=== PATIENT | female | born 1940 | race Caucasian/White ===

== ENCOUNTER 2017-05-25 11:23 | Emergency (ER) | payer MEDICARE, OTHER, MEDICAID ==
[~2017-05-25] VITALS: Ht 165.1 cm; Wt 65.4 kg
--- OUTSIDE RECORDS SUMMARY | ~2017-05-25 | XMS | Clinical Summary ---
Demographics + + + | Address | [address] | | | [place] [address] | + + + | Home Phone | | + + + | Preferred Language | Unknown | + + + | Marital Status | Single | + + + | Zoroastrian Affiliation | OTH | + + + [...] Team Providers + +------+ + | Care Microfilm Machine Operator Name | Role | Phone | + +------+ + | David Arias MD | PP | | + +------+ + Source Comments BRADLEY is fully live on both [facility] Amb[facility] and [facility] InPatient.[facility]ly [facility] Allergies + + + + + + [...] | + + + + + + Current Medications + + + +---------+------+------+-------+ | Prescription | Sig. | Disp. | Refills | Star | End | Statu | | | | | | t | Date | s | | | | | | Date | | | + + + +---------+------+------+-------+ | DICLOFENAC | Take by mouth. | | | | | Activ | | SODIUM/MISOPROSTOL | | | | | | e | | (ARTHROTEC 50 ORAL) | | | | | | | + + + +---------+------+------+-------+ | | Inhale 2 Puffs four | | | | | Activ | | albuterol-ipratropiu | times daily as | | | | | e | | m (COMBIVENT) 18-103 | needed. | | | | | | | mcg/actuation | | | | | | | | Inhalation Aerosol, | | | | | | | | [place] | | | | | | | + + + +---------+------+------+-------+ | tiotropium | Inhale 18 mcg once | | | | | Activ | | (SPIRIVA WITH | daily. | | | | | e | | HANDIHALER) 18 mcg | | | | | | | | Inhalation Capsule, | | | | | | | | w/Inhalation Device | | | | | | | + + + +---------+------+------+-------+ | fluticasone | Instill 2 Sprays | | | | | Activ | | (FLONASE) 50 | into each nostril | | | | | e | | mcg/actuation Nasal | once daily. | | | | | | | [place], Suspension | | | | | | | + + + +---------+------+------+-------+ | FOLIC | Take by mouth. | | | | | Activ | | ACID/MV,FE,OTHER MIN | | | | | | e | | (CENTRUM ORAL) | | | | | | | + + + +---------+------+------+-------+ | methylPREDNISolone | Follow package | 1 | 0 | 06/2 | | Activ | | (MEDROL, UZIEL,) 4 mg | directions. Please | Package | | /20 | | e | | Oral Tablets, [...] | mouth every four | | | 20 | | e | | ophen (VICODIN) [...] + +---------+ + | Alcohol Use | Drinks/We | oz/Week | Comments | | | ek | | | + + +---------+ + | No | | | stopped driking 36 years ago | + + +---------+ + + + + | Sex Assigned at | Date Recorded | | | | + + + | Not on file | | + + + Last Filed Vital Signs + + + + | Vital Sign | Reading | Time Taken | + + + + | Blood Pressure | 137/86 | 10/14/2011 2:50 PM PDT | + + + + | Pulse | 87 | 10/14/2011 2:50 PM PDT | + + + + | Temperature | 36.7 C (98.1 F) | 10/14/2011 2:24 PM PDT | + + + + | Respiratory Rate | 16 | 10/14/2011 2:50 PM PDT | + + + + | Oxygen Saturation | 95% | 10/14/2011 2:50 PM PDT | + + + + | Inhaled Oxygen | - | - | | Concentration | | | + + + + | Weight | 64.9 kg (143 lb) | 10/14/2011 9:40 AM PDT | + + + + | Height | 166.4 cm (5' 5.5") | 10/14/2011 9:40 AM PDT | + + + + | Body Mass Index | 23.43 | 10/14/2011 9:40 AM PDT | + + + + Plan of Treatment + + + + + | Health Maintenance | Due Date | Last Done | Comments | + + + + + | INFLUENZA VACCINE | | | | | (FLU SHOT) | 7 | | | + + + + + Results Not on filefrom Last 3 Months
--- OUTSIDE RECORDS SUMMARY | ~2017-05-25 | XMS | Clinical Summary ---
Demographics + + + | Address | [address] | | | [place] [address] | + + + | Home Phone | | + + + | Preferred Language | Unknown | + + + | Marital Status | Single | + + + | Jewish Affiliation | OTH | + + + [...] Team Providers + +------+ + | Care Driftman Name | Role | Phone | + +------+ + | David Arias MD | PP | | + +------+ + Source Comments BRADLEY is fully live on both [facility] Amb[facility] and [facility] InPatient.[facility] Allergies + + + + + [...] | | | | | | | Evant | | | | | | | [...] | | | | | | | Evant, Suspension | | | | | | [...]
[~2017-05-25 11:23] MED LIST: ALBUTEROL2.5 MG/3 M INH; AMITRIPTYLINE H25 MG PO; ASPIRIN EC325 MG PO; ASPIRIN EC81 MG PO; AZITHROMYCIN500 MG PO; AZO1 EACH MISC; BOTOX100 UNITS IM; CIPRO500 MG PO; CLARITHROMYCIN500 MG PO; CLOPIDOGREL75 MG PO; COMBIVENT INH14.7 GM INH; CYCLOBENZAPRINE5 MG PO; CYTOTEC200 MCG PO; DEXAMETHASONE2 MG PO; DEXAMETHASONE4 MG PO; DICLOFENAC SODI75 MG PO; DOXYCYCLINE MO100 M1 PO; FLOVENT DISKUS50 MCG NS; FLUTICASONE PRO16 GM NAS; FLUTICASONE PRO16 GM NS; HYDROMORPHONE HC4 MG PO; IMITREX100 MG PO; IPRAT-ALBUT 0.5-3 ML INH; ISOSORBIDE MONO30 MG PO; LANSOPRAZOLE30 MG PO; LEVAQUIN750 MG PO; LIPITOR40 MG PO; LIPITOR80 MG PO; LOPERAMIDE2 MG PO; MACROBID 100 M100 MG PO; METOCLOPRAMIDE10 MG PO; METRONIDAZOLE250 MG PO; MILK OF MA400 MG/5 M PO; MIRALAX17 GM PO; NAPROSYN375 MG; NAPROSYN500 MG PO; NAPROXEN500 MG PO; NITROGLYCERIN0.4 MG SL; NITROSTAT0.4 MG SL; NORCO 5-325 TA1 EACH PO; OXYCODONE HCL5 MG PO; PERCOCET 5-3251 EACH PO; PREDNISONE20 MG PO; SPIRIVA18 MCG INH; SUMATRIPTAN SU100 MG PO; TOPIRAMATE100 MG PO; TOPROL XL25 MG PO; VITAMIN D5000 UNIT PO; XARELTO10 MG PO; ZOFRAN ODT4 MG PO; ZOFRAN ODT4 MG SL; [UNRECOGNIZED DRUG - REMARK]; [UNRECOGNIZED DRUG - REMARK]
[2017-05-25] MEDS ORDERED: NORCO 5-325 TA1 EACH PO (13:53)
== END 2017-05-25 14:03 | disposition home or self-care (01) ==
LOC: ED 11:23
DX: S39.012A Strain of muscle, fascia and tendon of lower back, initial encounter (principal); J44.9 Chronic obstructive pulmonary disease, unspecified; I25.2 Old myocardial infarction; Z87.891 Personal history of nicotine dependence; Z88.0 Allergy status to penicillin; Z88.7 Allergy status to serum and vaccine; Z88.2 Allergy status to sulfonamides; Z88.5 Allergy status to narcotic agent; Z88.1 Allergy status to other antibiotic agents; Z79.82 Long term (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; Z79.899 Other long term (current) drug therapy; X50.9XXA Other and unspecified overexertion or strenuous movements or postures, initial encounter
CPT/HCPCS: 72100; 99283

== ENCOUNTER 2017-06-18 18:09 | Emergency (ER) | payer MEDICARE, OTHER, MEDICAID ==
[~2017-06-18] VITALS: Ht 165.1 cm; Wt 65.4 kg
--- NOTE | 2017-06-18 18:34 | EKG ---
[facility] [address] [facility] [place] [address] Signed Sinus tachycardia Inferior infarct , age undetermined Abnormal ECG When compared with ECG of 15-JUL-2016 00:41, Nonspecific T wave abnormality no longer evident in Anterior leads Confirmed by EZ SCHMITZ MD ([id number]) on 06/18/2017 6:33:53 PM Electronically Signed By: EZ SCHMITZ MD 06/18/17 1834 PATIENT NAME: MIRTHANATALYCOBY MADRIGAL Electrocardiogram DATE OF : 44 PHYSICIAN: EZ SCHMITZ MD REPORT #: [id number] REPORT IS CONFIDENTIAL AND NOT TO BE RELEASED WITHOUT AUTHORIZATION
[2017-06-18] MEDS ORDERED: SUMATRIPTAN SU100 MG PO (18:44)
== END 2017-06-18 21:01 | disposition home or self-care (01) ==
LOC: ED 18:09
DX: R07.89 Other chest pain (principal); J44.9 Chronic obstructive pulmonary disease, unspecified; Z88.0 Allergy status to penicillin; Z88.2 Allergy status to sulfonamides; Z88.8 Allergy status to other drugs, medicaments and biological substances; Z88.5 Allergy status to narcotic agent; Z79.899 Other long term (current) drug therapy; Z79.82 Long term (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
CPT/HCPCS: 71260; 80053; 84484; 85025; 85379; 85610; 93005; 93010; 99284; J2405; J7040; Q9967

== ENCOUNTER 2017-07-15 19:52 | Emergency (ER) | payer MEDICARE, OTHER, MEDICAID ==
[~2017-07-15] VITALS: Ht 165.1 cm; Wt 68.1 kg
[2017-07-15] MEDS ORDERED: CIPRO500 MG PO (20:11)
[2017-07-15] MEDS ORDERED: PREDNISONE20 MG PO (20:11)
[2017-07-15] MEDS ORDERED: GUAIFENESIN AC473 ML PO (21:25)
== END 2017-07-15 21:37 | disposition home or self-care (01) ==
LOC: ED 19:52
DX: J20.9 Acute bronchitis, unspecified (principal); F32.9 Major depressive disorder, single episode, unspecified; I25.2 Old myocardial infarction; J44.9 Chronic obstructive pulmonary disease, unspecified; Z87.891 Personal history of nicotine dependence; Z88.0 Allergy status to penicillin; Z88.7 Allergy status to serum and vaccine; Z88.2 Allergy status to sulfonamides; Z88.5 Allergy status to narcotic agent; Z88.1 Allergy status to other antibiotic agents; Z79.899 Other long term (current) drug therapy
CPT/HCPCS: 71046; 99283

== ENCOUNTER 2018-05-04 12:51 | Observation (INO) | payer MEDICARE, OTHER, MEDICAID ==
[~2018-05-04] VITALS: Ht 165.1 cm; Wt 68.1 kg
[~2018-05-04 12:51] MED LIST changes: +GUAIFENESIN AC473 ML PO
[2018-05-04] MEDS ORDERED: DICLOFENAC-MIS1 EAC2 PO (13:13)
[2018-05-04] MEDS ORDERED: PERFOROMIS20 MCG/2 M INH (13:13)
--- NOTE | 2018-05-04 15:53 | EKG ---
[facility] [address] [facility] [place] [address] Signed Sinus rhythm with occasional premature ventricular complexes Possible Left atrial enlargement Inferior infarct (cited on or before 15-JUL-2016) Abnormal ECG When compared with ECG of 18-JUN-2017 18:13, premature ventricular complexes are now present Questionable change in initial forces of Inferior leads ST no longer depressed in Lateral leads Confirmed by ABDOUL PENDLETON MD ([id number]) on 05/04/2018 3:53:05 PM Electronically Signed By: ABDOUL PENDLETON MD 05/04/18 1553 PATIENT NAME: NATALY SHANNON Electrocardiogram DATE OF : 44 PHYSICIAN: ABDOUL PENDLETON MD REPORT #: [id number] REPORT IS CONFIDENTIAL AND NOT TO BE RELEASED WITHOUT AUTHORIZATION
--- NOTE | 2018-05-04 19:59 | NUR ---
pt ARRIVED VIA STRETCHER. ASSESSMENT DONE. ASSISTED TO BSC. 1PA. TOLERATING REGULAR DIET. WEAKNESS IN LEGS. VSS. SETTLED INTO ROOM. CALL LIGHT WITHIN REACH. NO REQUESTS AT THIS TIME.
--- NOTE | 2018-05-04 21:30 | NUR ---
juancarlos pt for the flonase treatment. Pt offered no needs.
--- NOTE | 2018-05-04 22:24 | NUR ---
PATIENT CALLED TO USE THE BEDSIDE COMMODE. 1 PA/SBA.
--- NOTE | 2018-05-05 00:11 | NUR ---
ROUNDED ON pt. IVF INFUSING. RESTING WITH EYES CLOSED, RESPIRATIONS REGULAR, RATE = 18. CALL LIGHT WITHIN REACH.
--- NOTE | 2018-05-05 02:52 | NUR ---
ASSESSMENT DONE. NO CHANGES FROM PRIOR ASSESSMENT. pt RESTING WITH EYES CLOSED. IVF INFUSING. CALL LIGHT WITHIN REACH. NO REQUESTS AT THIS TIME.
--- NOTE | 2018-05-05 04:28 | NUR ---
CALL LIGHT ON. pt REQUESTED TO USE COMMODE. PROJECT PRODUCTION ENGINEER TO ROOM.
--- NOTE | 2018-05-05 05:01 | NUR ---
CALL LIGHT ON. pt REQUESTED PAIN MEDICATION FOR A 4/10 HEADACHE. PRN MEDICATION ADMINISTERED, REPORTED NAUSEA, PRN MEDICATION GIVEN (SEE MAR). PROVIDED CRACKERS. UP TO BSC, SBA. RESTING IN BED. CALL LIGHT WITHIN REACH. IVF INFUSING.
--- NOTE | 2018-05-05 05:14 | NUR ---
pt HERE FOLLOWING COPD EXACERBATION. RESTED MOST OF SHIFT. PRN PAIN AND NAUSEA MEDICATION FOR HEADACHE. SBA, BSC. IVF. REGULAR DIET. 2L O2 VIA NC CHRONIC. BLE EDEMA. DIM LUNG SOUNDS. USES CALL LIGHT APPROPRIATELY.
--- NOTE | 2018-05-05 06:38 | NUR ---
CALL LIGHT ON pt REPORTING NO CHANGE IN HEADACHE. WARM PACK PROVIDED. ASSISTED TO TOILET AND BACK TO BED. CALL LIGHT WITHIN REACH. NO FURTHER REQUESTS AT THIS TIME.
--- NOTE | 2018-05-05 07:21 | NUR ---
REPORT RECEIVED FROM KOBE POTTS. PT APPEARS TO BE SLEEPING. REPORTED HEADACHE TO COMMERCIAL COLLECTIONS DRIVER PRIOR.
--- NOTE | 2018-05-05 07:29 | NUR ---
CALLED DR PENDLETON REGARDING PT HEADACHE ALL NIGHT. PT STATES SHE TAKES 3 500MG TABS AT HOME. ORDERED A ONE TIME DOSE OF 1000 MG.
--- NOTE | 2018-05-05 07:59 | NUR ---
PT GIVEN SCHED MEDS AND IBUPRO. FOR HEADACHE. PT VOMITED CLEAR FOAM X1. STATES HEADACHE MAKES HER NAUSEOUS. CRACKLES HEARD IN LLL.
--- NOTE | 2018-05-05 09:52 | NUR ---
WENT TO OFFER NEW IMITREX MED, BUT PT APPEARS TO BE SLEEPING.
[2018-05-05] MEDS ORDERED: OMEPRAZOLE20 MG PO (10:33)
[2018-05-05] MEDS ORDERED: IPRAT-ALBUT 0.5-3 ML INH (10:35)
--- NOTE | 2018-05-05 10:59 | NUR ---
MED REC COMPLETE WITH SAFEWAY REFILL HISTORY
--- NOTE | 2018-05-05 11:33 | NUR ---
ADMINISTERED TYLENOL FOR CONTINUING HEADACHE. GIVEN DIET COKE FOR THE CAFFINE SHE STATES SHE NORMALLY DRINKS CAFFIENE DAILY. PT THEN STATED" IF THAT DOESNT WORK DO YOU THINK SHE WOULD GIVE ME DEMEROL AND FLEXERIL TO KNOCK ME OUT?" I STATED THAT WE WOULD GIVE OTHER OPTIONS A TRY.
--- NOTE | 2018-05-05 13:14 | NUR ---
PT DRESSED, SITTING ON SIDE OF BED-WAITING FOR DC. PT STATED SHE FEELS MUCH BETTER, AND IS USING O2 NC. PT REQUESTED PRAYER, WILL FOLLOW NEEDED
--- NOTE | 2018-05-05 13:26 | NUR ---
EDUCATION GIVEN REGARDING MIGRAINE AND COPD. VS STABLE. IV REMOVED WNL. ASSISTED TO DRESS. SENT ON HER OWN HOME OX. QUESTIONS ANSWERED.
== END 2018-05-05 13:23 | disposition home or self-care (01) ==
LOC: ED 12:51 → MS 12:52
PROVIDERS: ADMIT Internal Medicine
DX: R06.02 Shortness of breath (principal); R07.89 Other chest pain; I25.10 Atherosclerotic heart disease of native coronary artery without angina pectoris; R52 Pain, unspecified; R62.7 Adult failure to thrive; G47.30 Sleep apnea, unspecified; J44.9 Chronic obstructive pulmonary disease, unspecified; F32.9 Major depressive disorder, single episode, unspecified; G43.909 Migraine, unspecified, not intractable, without status migrainosus; Z66 Do not resuscitate; Z85.72 Personal history of non-Hodgkin lymphomas; Z86.19 Personal history of other infectious and parasitic diseases; Z99.81 Dependence on supplemental oxygen; Z87.891 Personal history of nicotine dependence; Z79.1 Long term (current) use of non-steroidal anti-inflammatories (NSAID); Z79.82 Long term (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; Z79.51 Long term (current) use of inhaled steroids; Z79.899 Other long term (current) drug therapy; Z88.5 Allergy status to narcotic agent; Z88.1 Allergy status to other antibiotic agents; Z88.0 Allergy status to penicillin; Z88.2 Allergy status to sulfonamides; Z88.7 Allergy status to serum and vaccine
CPT/HCPCS: 36415; 51701; 71045; 71260; 80053; 81001; 82550; 84439; 84443; 84484; 85025; 85379; 85651; 93005; 93010; 96374; 96375; 96376; 99285-25; C9113; G0378; J2405; Q9967

== ENCOUNTER 2018-08-13 12:31 | Emergency (ER) | payer MEDICARE, OTHER, MEDICAID ==
[~2018-08-13] VITALS: Ht 165.1 cm; Wt 72.6 kg
[~2018-08-13 12:31] MED LIST changes: +DICLOFENAC-MIS1 EAC2 PO; +HYDROCODON-ACE1 EA10 PO; +OMEPRAZOLE20 MG PO; +PERFOROMIS20 MCG/2 M INH
--- OUTSIDE RECORDS SUMMARY | 2018-08-13 12:34 | XMS ---
PreManage Notification: NATALY SHANNON Security Health Care Administrator Events No recent Security Events currently on file CRITERIA MET - CARLY CARE PROVIDERS Louis Delaney Treatment Current [place] PHONE: Unknown DR KRYSTYNA LUCIANO Primary Care Current PHONE: [phone] [facility] Current Orthopedic Surgery \T\ Fracture Clinic PHONE: Unknown Yolande has no Care Guidelines for this patient. E.[place]. VISIT COUNT (12 MO.) [address] [facility] TOTAL 2 NOTE: Visits indicate total known visits. ED/UCC VISIT TRACKING (12 MO.) 08/13/2018 12:31 [facility]: Emergency COMPLAINT: - CHEST PAIN, WEAKNESS, SOB 05/04/2018 12:51 [facility] TYPE: Emergency COMPLAINT: - CHEST PRESSURE INPATIENT VISIT TRACKING (12 MO.) 05/04/2018 12:52 [facility] TYPE: Observation COMPLAINT: - COPD DIAGNOSES: - Migraine, unspecified, not intractable, without status migrainosus - Allergy status to penicillin - Sleep apnea, unspecified - Allergy status to sulfonamides status - Allergy status to other antibiotic agents status - Adult failure to thrive - Do not resuscitate - terminal operations manager (current) use of non-steroidal anti-inflammatories (NSAID) - terminal operations manager (current) use of inhaled steroids - Shortness of breath - Personal history of other infectious and parasitic diseases - terminal operations manager (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 - Other detention (current) drug therapy - Personal history of nicotine dependence - Dependence on supplemental oxygen - Cough - Personal history of non-Hodgkin lymphomas - Allergy status to narcotic agent status - Major depressive disorder, single episode, unspecified - Atherosclerotic heart disease of [place] coronary artery without angina pectoris - Pain, unspecified - Allergy status to serum and vaccine status - Chronic obstructive pulmonary disease, unspecified - Other chest pain 01/27/2018 08:05 [facility] OR TYPE: Medical Surgical COMPLAINT: - RIGHT TOTAL KNEE ARTHOPLASTY [id number]
[2018-08-13] MEDS ORDERED: PERFOROMIS20 MCG/2 M INH (12:53)
[2018-08-13] MEDS ORDERED: SUMATRIPTAN SU100 MG PO (12:56)
[2018-08-13] MEDS ORDERED: PULMICORT0.5 MG/2 M INH (12:56)
--- NOTE | 2018-08-14 00:53 | EKG ---
[facility] [address] [place] [address] Signed Sinus tachycardia with frequent premature ventricular complexes Possible Left atrial enlargement Septal infarct (cited on or before 15-JUL-2016) Inferior infarct , age undetermined Abnormal ECG When compared with ECG of 01-JUL-2018 14:52, Significant changes have occurred with new inferior infarct. Confirmed by EZ SCHMITZ MD ([id number]) on 08/14/2018 12:53:11 AM Electronically Signed By: EZ SCHMITZ MD 08/14/18 0053 PATIENT NAME: NATALY SHANNON Electrocardiogram DATE OF : 44 PHYSICIAN: EZ SCHMITZ MD REPORT #: [id number] REPORT IS CONFIDENTIAL AND NOT TO BE RELEASED WITHOUT AUTHORIZATION
== END 2018-08-13 16:23 | disposition home or self-care (01) ==
LOC: ED 12:31
DX: R07.9 Chest pain, unspecified (principal); R53.1 Weakness; J44.9 Chronic obstructive pulmonary disease, unspecified; I25.2 Old myocardial infarction; Z87.891 Personal history of nicotine dependence; Z90.49 Acquired absence of other specified parts of digestive tract; Z90.89 Acquired absence of other organs; Z88.0 Allergy status to penicillin; Z88.2 Allergy status to sulfonamides; Z88.5 Allergy status to narcotic agent; Z88.7 Allergy status to serum and vaccine; Z88.8 Allergy status to other drugs, medicaments and biological substances; Z79.82 Long term (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; Z79.52 Long term (current) use of systemic steroids; Z79.899 Other long term (current) drug therapy
CPT/HCPCS: 36415; 71045; 71260; 80053; 83880; 84484; 85025; 93005; 93010; 99285-25; Q9967

== ENCOUNTER 2018-10-07 07:10 | Emergency (ER) | payer MEDICARE, OTHER, MEDICAID ==
[~2018-10-07] VITALS: Ht 165.1 cm; Wt 72.6 kg
[~2018-10-07 07:10] MED LIST changes: +PULMICORT0.5 MG/2 M INH
--- OUTSIDE RECORDS SUMMARY | 2018-10-07 07:14 | XMS ---
PreManage Notification: NATALY SHANNON Security Vaccines Solutions Specialist Events No recent Security Events currently on file CRITERIA MET - MEERA CARE PROVIDERS KRYSTYNA LUCIANO [facility] 08/14/2018-Current PHONE: [phone] Louis Delaney MD PHONE: Unknown DR KRYSTYNA LUCIANO Primary Care Current PHONE: [phone] [facility] Current Orthopedic Surgery \T\ Fracture Clinic PHONE: Unknown Yolande has no Care Guidelines for this patient. [place] VISIT COUNT (12 MO.) 3 [facility] TOTAL 3 NOTE: Visits indicate total known visits. ED/UCC VISIT TRACKING (12 MO.) 10/07/2018 07:11 [facility] TYPE: Emergency COMPLAINT: - FALL 08/13/2018 12:31 [facility] TYPE: Emergency COMPLAINT: - CHEST PAIN, WEAKNESS, SOB DIAGNOSES: - Chest pain, unspecified - Allergy status to narcotic agent status - Other salvage determiner (current) drug therapy - Allergy status to other drugs, medicaments and biological substances status - Weakness - intermodal customer service (current) use of systemic steroids - Personal history of nicotine dependence - Chronic obstructive pulmonary disease, unspecified - Acquired absence of other organs - Allergy status to penicillin - intermediate (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 - Acquired absence of other specified parts of digestive tract - Allergy status to sulfonamides status - Allergy status to serum and vaccine status - Old myocardial infarction 05/04/2018 12:51 [facility] TYPE: Emergency [...] to thrive - Do not resuscitate - intermodal customer service (current) use of non-steroidal anti-inflammatories (NSAID) - intermediate (current) use of inhaled steroids - Shortness of breath - Personal history of other infectious and parasitic diseases - intermodal customer service (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 - Other prison (current) drug therapy - Personal history of nicotine dependence - Dependence on supplemental oxygen - Cough - Personal history of non-Hodgkin lymphomas - Allergy status to narcotic agent status - Major depressive disorder, single episode, unspecified - Atherosclerotic heart disease of [place] coronary artery without angina pectoris - Pain, unspecified - Allergy status to serum and vaccine status - Chronic obstructive pulmonary disease, unspecified - Other chest pain 01/27/2018 08:05 [facility] OR TYPE: Medical Surgical COMPLAINT: - RIGHT TOTAL KNEE ARTHOPLASTY [id number]
[2018-10-07] MEDS ORDERED: OXYCODONE HCL5 MG PO (09:54)
== END 2018-10-07 10:15 | disposition home or self-care (01) ==
LOC: ED 07:10
DX: S82.042A Displaced comminuted fracture of left patella, initial encounter for closed fracture (principal); S43.401A Unspecified sprain of right shoulder joint, initial encounter; W18.30XA Fall on same level, unspecified, initial encounter; J44.9 Chronic obstructive pulmonary disease, unspecified; F32.9 Major depressive disorder, single episode, unspecified; G43.909 Migraine, unspecified, not intractable, without status migrainosus; I25.2 Old myocardial infarction; Z87.891 Personal history of nicotine dependence; Z88.0 Allergy status to penicillin; Z88.8 Allergy status to other drugs, medicaments and biological substances; Z88.2 Allergy status to sulfonamides; Z88.7 Allergy status to serum and vaccine; Z88.5 Allergy status to narcotic agent; Z79.899 Other long term (current) drug therapy; Z79.82 Long term (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
CPT/HCPCS: 73030; 73560; 99283

== ENCOUNTER 2018-10-07 16:19 | Emergency (ER) | payer MEDICARE, OTHER, MEDICAID ==
[~2018-10-07] VITALS: Ht 165.1 cm; Wt 72.6 kg
--- OUTSIDE RECORDS SUMMARY | 2018-10-07 16:22 | XMS ---
PreManage Notification: NATALY SHANNON Security Pug Mill Operator Events No recent Security Events currently on file CRITERIA MET - PDMP - [facility] - 2 Visits in 30 Days CARE PROVIDERS KRYSTYNA LUCIANO [facility] 08/14/2018-Current PHONE: [phone] Louis Delaney Current PHONE: Unknown DR KRYSTYNA LUCIANO Primary Care Current PHONE: [phone] [facility] Current Orthopedic Surgery \T\ Fracture Clinic PHONE: Unknown Yolande has no Care Guidelines for this patient. [place] VISIT COUNT (12 MO.) 4 [facility] TOTAL 4 NOTE: Visits indicate total known visits. ED/UCC VISIT TRACKING (12 MO.) 10/07/2018 16:20 [facility] TYPE: Emergency COMPLAINT: - NAUSEA,LT KNEE PAIN 10/07/2018 07:11 [facility] TYPE: Emergency COMPLAINT: - FALL 08/13/2018 12:31 [facility] TYPE: Emergency COMPLAINT: - CHEST PAIN, WEAKNESS, SOB DIAGNOSES: - Chest pain, unspecified - Allergy status to narcotic agent status - Other exterminator helper termite (current) drug therapy - Allergy status to other drugs, medicaments and biological substances status - Weakness - residential (current) use of systemic steroids - Personal history of nicotine dependence - Chronic obstructive pulmonary disease, unspecified - Acquired absence of other organs - Allergy status to penicillin - residential (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 - Acquired absence [...] to thrive - Do not resuscitate - buttermaker helper (current) use of non-steroidal anti-inflammatories (NSAID) - residential (current) use of inhaled steroids - Shortness of breath - Personal history of other infectious and parasitic diseases - residential (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 - Other exterminator helper termite (current) drug therapy - Personal history of nicotine dependence - Dependence on supplemental oxygen - Cough - Personal history of non-Hodgkin lymphomas - Allergy status to narcotic agent status - Major depressive disorder, single episode, unspecified - Atherosclerotic heart disease of [place] coronary artery without angina pectoris - Pain, unspecified - Allergy status to serum and vaccine status - Chronic obstructive pulmonary disease, unspecified - Other chest pain 01/27/2018 08:05 [facility] OR TYPE: Medical Surgical COMPLAINT: - RIGHT TOTAL KNEE ARTHOPLASTY [id number]
--- NOTE | 2018-10-08 11:39 | EKG ---
[facility] [address] [facility] [place] [address] Signed Sinus tachycardia Possible Left atrial enlargement Inferior infarct (cited on or before 18-JUN-2017) Abnormal ECG When compared with ECG of 13-AUG-2018 12:36, premature ventricular complexes are no longer present Criteria for Septal infarct are no longer present ST now depressed in Inferior leads T wave inversion more evident in Inferior leads Confirmed by MONROE BOONE DO ([id number]) on 10/08/2018 11:38:57 AM Electronically Signed By: MONROE BOONE DO 10/08/18 1139 PATIENT NAME: NATALY SHANNON Electrocardiogram DATE OF : 44 PHYSICIAN: MONROE BOONE DO REPORT #: [id number] REPORT IS CONFIDENTIAL AND NOT TO BE RELEASED WITHOUT AUTHORIZATION
== END 2018-10-07 19:25 | disposition home or self-care (01) ==
LOC: ED 16:19
DX: S82.042D Displaced comminuted fracture of left patella, subsequent encounter for closed fracture with routine healing (principal); S43.401D Unspecified sprain of right shoulder joint, subsequent encounter; W18.30XD Fall on same level, unspecified, subsequent encounter; J44.9 Chronic obstructive pulmonary disease, unspecified; F32.9 Major depressive disorder, single episode, unspecified; G43.909 Migraine, unspecified, not intractable, without status migrainosus; I25.2 Old myocardial infarction; Z88.0 Allergy status to penicillin; Z88.2 Allergy status to sulfonamides; Z88.5 Allergy status to narcotic agent; Z88.7 Allergy status to serum and vaccine; Z79.899 Other long term (current) drug therapy; Z79.82 Long term (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
CPT/HCPCS: 70450; 80053; 84484; 85025; 93005; 93010; 99284-25

== ENCOUNTER 2018-12-05 11:39 | Emergency (ER) | payer MEDICARE, OTHER, MEDICAID ==
[~2018-12-05] VITALS: Ht 162.6 cm; Wt 72.6 kg
[~2018-12-05 11:39] MED LIST changes: +ASPIRIN325 MG PO; +SENNA LAX8.6 MG PO
--- OUTSIDE RECORDS SUMMARY | 2018-12-05 11:42 | XMS ---
PreManage Notification: NATALY SHANNON Security Fish Packer Events No recent Security Events currently on file CRITERIA MET - [facility] Guidelines - [facility] CARE PROVIDERS KRYSTYNA LUCIANO [facility] 08/14/2018-Current PHONE: [phone] Louis Delaney [facility] PHONE: Unknown DR KRYSTYNA LUCIANO Primary Care Current PHONE: [phone] [facility] Current Orthopedic Surgery \T\ Fracture Clinic PHONE: Unknown Yolande has no Care Guidelines for this patient. Care History Medical/Surgical 10/26/2018 [facility] - PATIENT CURRENTLY ON [facility]- - [facility] IS CURRENTLY PROVIDING PHYSICAL THERAPY- RN SERVICES. - [facility] CONTACT: [phone]. 10/12/2018 [facility] - PATIENT HAS AN APT 10/12/[address] DELANEY-FIDELIA PHYSICIAN. - [facility] DISCUSSED WITH SAM- DR DELANEY RN- THE POSSIBILITY OF REQUESTING HOME HEALTH ORDERS FOR PATIENT. THEY WILL DISCUSS WITH PATIENT TODAY. ESergio. VISIT COUNT (12 MO.) 5 [facility]. TOTAL 5 NOTE: Visits indicate total known visits. ED/UCC VISIT TRACKING (12 MO.) 12/05/2018 11:40 [facility] TYPE: Emergency COMPLAINT: - MEDICATION REACTION 10/07/2018 16:20 [facility] TYPE: Emergency COMPLAINT: - LT KNEE PAIN DIAGNOSES: - Displaced comminuted fracture of left patella, subsequent encounter for closed fracture with routine healing - Old myocardial infarction - Migraine, unspecified, not intractable, without status migrainosus - Pain in left knee - Allergy status to serum and vaccine status - Allergy status to sulfonamides status - Other snf (current) drug therapy - Major depressive disorder, single episode, unspecified - Fall on same level, unspecified, subsequent encounter - Unspecified sprain of right shoulder joint, subsequent encounter - Allergy status to penicillin - Chronic obstructive pulmonary disease, unspecified - Allergy status to narcotic agent status - [facility] (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 10/07/2018 07:11 [facility] TYPE: Emergency COMPLAINT: - FALL DIAGNOSES: - Migraine, unspecified, not intractable, without status migrainosus - Other intermediate project manager (current) drug therapy - local intermodal truck driver (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 - Allergy status to other drugs, medicaments and biological substances status - Displaced comminuted fracture of left patella, initial encounter for closed fracture - Chronic obstructive pulmonary disease, unspecified - Major depressive disorder, single episode, unspecified - Allergy status to penicillin - Allergy status to sulfonamides status - Unspecified sprain of right shoulder joint, initial encounter - Fall on same level, unspecified, initial encounter - Allergy status to narcotic agent status - Displaced comminuted fracture of left patella, initial encounter for closed fracture - Allergy status to serum and vaccine status - Personal history of nicotine dependence - Old myocardial infarction 08/13/2018 12:31 [facility] TYPE: Emergency COMPLAINT: - CHEST PAIN, WEAKNESS, SOB DIAGNOSES: - Chest pain, unspecified - Allergy status to narcotic agent status - Other intermediate project manager (current) drug therapy - Allergy status to other drugs, medicaments and biological substances status - Weakness - [facility] (current) use of systemic steroids - Personal history of nicotine dependence - Chronic obstructive pulmonary disease, unspecified - Acquired absence of other organs - Allergy status to penicillin - [facility] (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 - Acquired absence of other specified parts of digestive tract - Allergy status to sulfonamides status - Allergy status to serum and vaccine status - Old myocardial infarction 05/04/2018 12:51 [facility] TYPE: Emergency COMPLAINT: - CHEST PRESSURE INPATIENT VISIT TRACKING ( MO.) 05/04/2018 12:52 [facility] TYPE: Observation COMPLAINT: - COPD DIAGNOSES: - Migraine, unspecified, not intractable, without status migrainosus - Allergy status to penicillin - Sleep apnea, unspecified - Allergy status to sulfonamides status - Allergy status to other antibiotic agents status - Adult failure to thrive - Do not resuscitate - local intermodal truck driver (current) use of non-steroidal anti-inflammatories (NSAID) - [facility] (current) use of inhaled steroids - Shortness of breath - Personal history of other infectious and parasitic diseases - local intermodal truck driver (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 - Other intermediate project manager (current) drug therapy - Personal history of nicotine dependence - Dependence on supplemental oxygen - Cough - Personal history of non-Hodgkin lymphomas - Allergy status to narcotic agent status - Major depressive disorder, single episode, unspecified - Atherosclerotic heart disease of [place] coronary artery without angina pectoris - Pain, unspecified - Allergy status to serum and vaccine status - Chronic obstructive pulmonary disease, unspecified - Other chest pain 01/27/2018 08:05 [facility] OR TYPE: Medical Surgical COMPLAINT: - RIGHT TOTAL KNEE ARTHOPLASTY [id number]
[2018-12-05] MEDS ORDERED: KEFLEX500 MG PO (11:58)
== END 2018-12-05 12:27 | disposition home or self-care (01) ==
LOC: ED 11:39
DX: M76.61 Achilles tendinitis, right leg (principal); I25.2 Old myocardial infarction; F32.9 Major depressive disorder, single episode, unspecified; J44.9 Chronic obstructive pulmonary disease, unspecified; Z87.891 Personal history of nicotine dependence; Z88.0 Allergy status to penicillin; Z88.7 Allergy status to serum and vaccine; Z88.1 Allergy status to other antibiotic agents; Z88.2 Allergy status to sulfonamides; Z88.5 Allergy status to narcotic agent; Z79.899 Other long term (current) drug therapy
CPT/HCPCS: 99283

== ENCOUNTER 2018-12-17 11:37 | Emergency (ER) | payer MEDICARE, OTHER, MEDICAID ==
[~2018-12-17] VITALS: Ht 162.6 cm; Wt 72.6 kg
[~2018-12-17 11:37] MED LIST changes: +KEFLEX500 MG PO
--- OUTSIDE RECORDS SUMMARY | 2018-12-17 11:40 | XMS ---
PreManage Notification: NATALY SHANNON Security Lathe Winder Events No recent Security Events currently on file CRITERIA MET - [facility] - Has Care Guidelines - PDMP - [facility] - 2 Visits in 30 Days CARE PROVIDERS KRYSTYNA LUCIANO Family [facility] 08/14/2018-Current PHONE: [phone] Louis Delaney Current PHONE: Unknown DR KRYSTYNA LUCIANO Primary Care Current PHONE: [phone] Sanchez [place] Current Orthopedic Surgery \T\ Fracture Clinic PHONE: Unknown Yolande has no Care Guidelines for this patient. Care History Medical/Surgical 10/26/2018 [facility] - PATIENT CURRENTLY ON [facility]- - [facility] IS CURRENTLY PROVIDING PHYSICAL THERAPY- RN SERVICES. - [facility] CONTACT: [phone]. 10/12/2018 [facility] - PATIENT HAS AN APT 10/12/[address] DELANEY-FIDELIA PHYSICIAN. - CHW DISCUSSED WITH SAM- DR DELANEY RN- THE POSSIBILITY OF REQUESTING HOME HEALTH ORDERS FOR PATIENT. THEY WILL DISCUSS WITH PATIENT TODAY. E.D. VISIT COUNT (12 MO.) 6 [facility]. TOTAL 6 NOTE: Visits indicate total known visits. ED/UCC VISIT TRACKING (12 MO.) 12/17/2018 11:38 [facility] TYPE: Emergency COMPLAINT: - KNEE PAIN 12/05/2018 11:40 [facility] TYPE: Emergency COMPLAINT: - MEDICATION REACTION DIAGNOSES: - Personal history of nicotine dependence - Allergy status to penicillin - Chronic obstructive pulmonary disease, unspecified - Allergy status to narcotic agent status - Achilles tendinitis, right leg - Other half-way (current) drug therapy - Allergy status to serum and vaccine status - Allergy status to other antibiotic agents status - Pain in right lower leg - Old myocardial infarction - Major depressive disorder, single episode, unspecified - Allergy status to sulfonamides status 10/07/2018 16:20 [facility] [place] TYPE: Emergency COMPLAINT: - LT KNEE PAIN DIAGNOSES: - Displaced comminuted fracture of left patella, subsequent encounter for closed fracture with routine healing - Old myocardial infarction - Migraine, unspecified, not intractable, without status migrainosus - Pain in left knee - Allergy status to serum and vaccine status - Allergy status to sulfonamides status - Other half-way (current) drug therapy - Major depressive disorder, single episode, unspecified - Fall on same level, unspecified, subsequent encounter - Unspecified sprain of right shoulder joint, subsequent encounter - Allergy status to penicillin - Chronic obstructive pulmonary disease, unspecified - Allergy status to narcotic agent status - terminal gauger supervisor (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 10/07/2018 07:11 [facility] TYPE: Emergency COMPLAINT: - FALL DIAGNOSES: - Migraine, unspecified, not intractable, without status migrainosus - Other half-way (current) drug therapy - terminal gauger supervisor (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 - Allergy status [...] status to narcotic agent status - Other half-way (current) drug therapy - Allergy status to other drugs, medicaments and biological substances status - Weakness - terminal gauger supervisor (current) use of systemic steroids - Personal history of nicotine dependence - Chronic obstructive pulmonary disease, unspecified - Acquired absence of other organs - Allergy status to penicillin - care home (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 - Acquired absence [...] to thrive - Do not resuscitate - care home (current) use of non-steroidal anti-inflammatories (NSAID) - care home (current) use of inhaled steroids - Shortness of breath - Personal history of other infectious and parasitic diseases - care home (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 - Other half-way (current) drug therapy - Personal history of nicotine dependence - Dependence on supplemental oxygen - Cough - Personal history of non-Hodgkin lymphomas - Allergy status to narcotic agent status - Major depressive disorder, single episode, unspecified - Atherosclerotic heart disease of [place] coronary artery without angina pectoris - Pain, unspecified - Allergy status to serum and vaccine status - Chronic obstructive pulmonary disease, unspecified - Other chest pain 01/27/2018 08:05 [facility] [place] TYPE: Medical Surgical COMPLAINT: - RIGHT TOTAL KNEE ARTHOPLASTY [email or web address]
[2018-12-17] MEDS ORDERED: LEVAQUIN750 MG PO (12:11)
== END 2018-12-17 12:48 | disposition home or self-care (01) ==
LOC: ED 11:37
DX: L03.116 Cellulitis of left lower limb (principal); I25.2 Old myocardial infarction; Z86.711 Personal history of pulmonary embolism; Z87.891 Personal history of nicotine dependence; Z88.0 Allergy status to penicillin; Z88.1 Allergy status to other antibiotic agents; Z88.2 Allergy status to sulfonamides; Z88.7 Allergy status to serum and vaccine; Z88.5 Allergy status to narcotic agent; Z88.8 Allergy status to other drugs, medicaments and biological substances; Z79.899 Other long term (current) drug therapy
CPT/HCPCS: 99283

== ENCOUNTER 2019-05-10 14:00 | Observation (INO) | payer MEDICARE, OTHER, MEDICAID ==
[~2019-05-10] VITALS: Ht 162.6 cm; Wt 69.9 kg
--- OUTSIDE RECORDS SUMMARY | 2019-05-10 14:02 | XMS ---
PreManage Notification: NATALY SHANNON Security Cloth Feeder Events No recent Security Events currently on file CRITERIA MET - [facility] Guidelines - [facility] CARE PROVIDERS KRYSTYNA LUCIANO [facility] 08/14/2018-Current PHONE: [phone] Louis Delaney [facility] PHONE: Unknown DR KRYSTYNA LUCIANO Primary Care Current PHONE: [phone] [place] Current Orthopedic Surgery \T\ Fracture Clinic PHONE: Unknown Yolande has no Care Guidelines for this patient. Care History Medical/Surgical 12/22/2018 [facility] - PATIENT HAS A FOLLOW UP APT WITH DR DELANEY ON 12/24/18. 10/26/2018 [facility] [place] - PATIENT CURRENTLY ON [facility]- - [facility] IS CURRENTLY PROVIDING PHYSICAL THERAPY- RN SERVICES. - [facility] CONTACT: [phone]. 10/12/2018 [facility] - PATIENT HAS AN APT 10/12/[address] DELANEY-ORTHO PHYSICIAN. - CHW DISCUSSED WITH MAURILIO DELANEY RN- THE POSSIBILITY OF REQUESTING HOME HEALTH ORDERS FOR PATIENT. THEY WILL DISCUSS WITH PATIENT TODAY. ESergio. VISIT COUNT (12 MO.) [address] [facility] TOTAL 6 NOTE: Visits indicate total known visits. ED/UCC VISIT TRACKING (12 MO.) 05/10/2019 14:00 [facility] TYPE: Emergency COMPLAINT: - SOB 12/17/2018 11:38 [facility] TYPE: Emergency COMPLAINT: - KNEE PAIN DIAGNOSES: - Allergy status to sulfonamides status - Allergy status to oth drug/meds/biol subst status - Personal history of pulmonary embolism - Personal history of nicotine dependence - Old myocardial infarction - Pain in left knee - Allergy status to other antibiotic agents status - Allergy status to narcotic agent status - Allergy status to penicillin - Allergy status to serum and vaccine status - Other mcc (current) drug therapy - Cellulitis of left lower limb 12/05/2018 11:40 [facility] TYPE: Emergency COMPLAINT: - MEDICATION REACTION DIAGNOSES: - Personal history of nicotine dependence - Allergy status to penicillin - Chronic obstructive pulmonary disease, unspecified - Allergy status to narcotic agent status - Achilles tendinitis, right leg - Other extermination supervisor (current) drug therapy - Allergy status to serum and vaccine status - Allergy status to other antibiotic agents status - Pain in right lower leg - Old myocardial infarction - Major depressive disorder, single episode, unspecified - Allergy status to sulfonamides status 10/07/2018 16:20 [facility] TYPE: Emergency COMPLAINT: - LT KNEE PAIN DIAGNOSES: - Displ commnt fx left patella, subs for clos fx w routn heal - Old myocardial infarction - Migraine, unsp, not intractable, without status migrainosus - Pain in left knee - Allergy status to serum and vaccine status - Allergy status to sulfonamides status - Other mcc (current) drug therapy - Major depressive disorder, single episode, unspecified - Fall on same level, unspecified, subsequent encounter - Unspecified sprain of right shoulder joint, subs encntr - Allergy status to penicillin - Chronic obstructive pulmonary disease, unspecified - Allergy status to narcotic agent status - extermination supervisor (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 10/07/2018 07:11 [facility] TYPE: Emergency COMPLAINT: - FALL DIAGNOSES: - Migraine, unsp, not intractable, without status migrainosus - Other extermination supervisor (current) drug therapy - senior care (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 - Allergy status to oth drug/meds/biol subst status - Displaced comminuted fracture of left patella, init - Chronic obstructive pulmonary disease, unspecified - Major depressive disorder, single episode, unspecified - Allergy status to penicillin - Allergy status to sulfonamides status - Unspecified sprain of right shoulder joint, init encntr - Fall on same level, unspecified, initial encounter - Allergy status to narcotic agent status - Displaced comminuted fracture of left patella, init - Allergy status to serum and vaccine status - Personal history of nicotine dependence - Old myocardial infarction 08/13/2018 12:[address] [facility] [place] TYPE: Emergency COMPLAINT: - CHEST PAIN, WEAKNESS, SOB DIAGNOSES: - Chest pain, unspecified - Allergy status to narcotic agent status - Other mcc (current) drug therapy - Allergy status to oth drug/meds/biol subst status - Weakness - extermination supervisor (current) use of systemic steroids - Personal history of nicotine dependence - Chronic obstructive pulmonary disease, unspecified - Acquired absence of other organs - Allergy status to penicillin - extermination supervisor (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 - Acquired absence of other specified parts of digestive tract - Allergy status to sulfonamides status - Allergy status to serum and vaccine status - Old myocardial infarction INPATIENT VISIT TRACKING (12 MO.) No inpatient visits to display in this time frame [email or web address]
--- NOTE | 2019-05-10 20:40 | NUR ---
PT TO ROOM VIA STRETCHER. PT ABLE TO TX SELF TO BED, MANOLO FAIR. INCREASED SOB WITH EXERTION. PT COUGHING UP MODERATE AMOUNT OF THIN, CLEAR MUCOUS. O2 2L/NC IN PLACE. VS AND WEIGHT DONE. PT ORIENTED TO ROOM AND NURSE CALL LIGHT. FOOD SERVICE CASHIER IN TO DO ADMISSION.
--- NOTE | 2019-05-10 20:56 | NUR ---
Provided pt with boxed lunch.
--- NOTE | 2019-05-10 21:37 | NUR ---
PATIENTS EVENING MEDICATIONS GIVEN PER ORDER. PATIENT IS RESTING IN BED. IV FLUIDS INFUSING PER ORDER. PATIENTS ADMISSION COMPLETED. PATIENT DENIES ANY COMMENTS, QUESTIONS, OR CONCERNS. PATIENT WAS ABLE TO EAT SOUP AND SANDWICH. NO FURTHER NEEDS NOTED. CALL LIGHT IN REACH.
--- NOTE | 2019-05-10 22:15 | NUR ---
ASSESSMENT COMPLETE. PRN GIVEN FOR C/O HEARTBURN. BS CHECK AND SLIDING SCALE PER ORDER. O2 2L/NC IN PLACE. PT UP TO BR WITH SBA, GAIT STEADY BUT WEAK. BACK TO BED, MANOLO WELL. IVF INFUSING. PT ANXIOUS AND TEARY ABOUT NEW MEDICATIONS AND HOSPITAL STAY. EDUCATION AND REASSURANCE PROVIDED, ALL QUESTIONS ANSWERED. PT DENIES PAIN OR NAUSEA. CALL LIGHT WITHIN REACH.
--- NOTE | 2019-05-11 00:29 | NUR ---
CALL LIGHT ANSWERED. PT UP TO BR WITH SBA. BACK TO BED, MANOLO WELL. O2 2L/NC IN PLACE. IVF INFUSING. PT STATES SHE IS FEELING LESS ANXIOUS. WARM BLANKET PROVIDED.
--- NOTE | 2019-05-11 01:53 | NUR ---
CALL LIGHT ANSWERED. PT UP TO BR WITH SBA. BACK TO BED, MANOLO WELL. GAIT STEADY. TACHYPNEA AND STRENGTH IMPROVED. OXYGEN IN PLACE. WARM BLANKET GIVEN.
--- NOTE | 2019-05-11 03:44 | NUR ---
CALL LIGHT ANSWERED. PT UP TO BR WITH SBA, BACK TO BED. MANOLO WELL. MEDICATED WITH PRN FOR HEADACHE. RT IN TO START BREATHING TX.
--- NOTE | 2019-05-11 04:56 | NUR ---
PATIENT HAS BEEN UP 3 TIME DURING THE NIGHT, FRESH WATER AND CALL LIGHT IN REACH
--- NOTE | 2019-05-11 06:21 | NUR ---
PT SLEPT WELL. FREQUENT BR TRIPS. SBA. CHRONIC O2 2L/NC. ALERT AND ORIENTED. USES CALL LIGHT APPROPRIATELY. IVF. BREATHING TX.
--- NOTE | 2019-05-11 06:49 | NUR ---
PT UP TO BR WITH SBA. BACK TO BED, MANOLO WELL. SCHEDULED MEDS GIVEN. OXYGEN IN PLACE. CALL LIGHT IN REACH.
--- NOTE | 2019-05-11 07:36 | NUR ---
PT IS AWAKE, STATES SHE NAPPED ON AND OFF, LOOKING FORWARD TO BREAKFAST, FEELS SHE IS BREATHING MUCH EASIER, CALL LIGHT IN EASY REACH, WARM BLANKET FOR COMFORT.
--- NOTE | 2019-05-11 08:00 | NUR ---
WENT TO VISIT WITH PT, PATIENT STATES SHE FEELS LIKE SHE HAS GOOD CONTROL OF HER COPD AND MOST OF THE TIME TOLERATES IT WELL, EXCEPT WHEN IT KICKS UP LIKE IT DID YESTERDAY. REVIEWED THE ZONE MAGNET WITH THE PT AND GAVE HER ONE IN HER EDUCATION PACKET AFTER WE WENT OVER THIS AND PT STATED UNDERSTANDING OF THIS. PT IS WANTING TO DC TODAY.
[2019-05-11] MEDS ORDERED: YUPELRI175 MCG/3 INH (10:34)
--- NOTE | 2019-05-11 10:54 | NUR ---
PATIENT UP TO BATHROOM AND BACK TO BED WITH RN. FRESH WATER GIVEN. CALL LIGHT IN REACH. NO FURTHER NEEDS AT THIS TIME.
[2019-05-11] MEDS ORDERED: NITROSTAT0.4 MG SL (11:01)
[2019-05-11] MEDS ORDERED: ASPIR-LOW81 MG PO (11:06)
[2019-05-11] MEDS ORDERED: FLUTICASONE PRO16 GM NAS (11:17)
[2019-05-11] MEDS ORDERED: METOPROLOL SUCC50 MG PO (11:23)
[2019-05-11] MEDS ORDERED: MISOPROSTOL100 MCG PO (11:27)
[2019-05-11] MEDS ORDERED: MELOXICAM15 MG PO (11:28)
[2019-05-11] MEDS ORDERED: DEXAMETHASONE2 MG PO (11:29)
--- NOTE | 2019-05-11 12:11 | NUR ---
PT RESTING IN BED, ALERT AND ORIENTED. SHE MENTIONED THAT SHE FEELS SO MUCH BETTER THAN SHE DID MONBlanca AUGUST SANDRA TODAY, HAD PRAYER WITH PT AND WILL FOLLOW NEEDED
--- NOTE | 2019-05-11 12:44 | NUR ---
MED REC COMPLETE
[2019-05-11] MEDS ORDERED: AZITHROMYCIN500 MG PO (12:49)
[2019-05-11] MEDS ORDERED: ALBUTEROL2.5 MG/3 M INH (12:49)
[2019-05-11] MEDS ORDERED: PREDNISONE20 MG PO (12:51)
--- NOTE | 2019-05-11 13:04 | NUR ---
REVIEWED DISCHARGE INSTRUCTIONS WITH PATIENT, AND FOLLOW UP APPOINTMENT. VERBALIZES UNDERSTANDING, DENIES ANY QUESTIONS, PLEASED WITH HER CARE. MAN FLORES'[place],
--- NOTE | 2019-05-11 13:36 | NUR ---
FAXED CHART NOTES TO [facility] INCLUDING FACE SHEET, RXS X2, ER NOTES AND SUMMARY, H AND P, DC SUMMARY TO [facility] @ [phone]. RECEIVED A FAX CONFIRMATION FOR THIS.
--- NOTE | 2019-05-11 15:03 | NUR ---
1000:Based on history of exaserbations, dyspnea, and current inhaled med regimine it is recomended that pt be advanced to tripletherapy per the COPD Gold guidelines. Pulmonary rehab would also be a great benefit to the patient.
--- NOTE | 2019-05-12 11:44 | EKG ---
[facility] [address] [place], [place] [address] Signed Sinus tachycardia Possible Left atrial enlargement Possible Anterior infarct , age undetermined Abnormal ECG Confirmed by MONROE BOONE DO ([id number]) on 05/12/2019 11:44:14 AM Electronically Signed By: MONROE BOONE DO 05/12/19 1144 PATIENT NAME: NATALY SHANNON Electrocardiogram DATE OF : 44 PHYSICIAN: MONROE BOONE DO REPORT #: [id number] REPORT IS CONFIDENTIAL AND NOT TO BE RELEASED WITHOUT AUTHORIZATION
== END 2019-05-11 13:23 | disposition home or self-care (01) ==
LOC: ED 14:00 → MS 14:01
PROVIDERS: ADMIT Student in an Organized Health Care Education/Training Program
DX: J44.1 Chronic obstructive pulmonary disease with (acute) exacerbation (principal); I25.10 Atherosclerotic heart disease of native coronary artery without angina pectoris; E78.5 Hyperlipidemia, unspecified; K21.9 Gastro-esophageal reflux disease without esophagitis; F39 Unspecified mood [affective] disorder; R00.0 Tachycardia, unspecified; Z79.899 Other long term (current) drug therapy; Z79.51 Long term (current) use of inhaled steroids; Z87.891 Personal history of nicotine dependence; Z79.1 Long term (current) use of non-steroidal anti-inflammatories (NSAID); Z95.5 Presence of coronary angioplasty implant and graft; Z79.82 Long term (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; Z85.72 Personal history of non-Hodgkin lymphomas; Z88.0 Allergy status to penicillin; Z88.2 Allergy status to sulfonamides; Z88.1 Allergy status to other antibiotic agents; Z88.5 Allergy status to narcotic agent; Z88.7 Allergy status to serum and vaccine
CPT/HCPCS: 71045; 80053; 83036; 83735; 83880; 84484; 85025; 87502; 93005; 93010; 94640; 94760; 96361; 96374; 96376; 97166; 99285-25; G0378; J1815; J2930; J7121

== ENCOUNTER 2019-05-24 14:23 | Observation (INO) | payer MEDICARE, OTHER, MEDICAID ==
[~2019-05-24] VITALS: Ht 162.6 cm; Wt 69.8 kg
[~2019-05-24 14:23] MED LIST changes: +ASPIR-LOW81 MG PO; +MELOXICAM15 MG PO; +METOPROLOL SUCC50 MG PO; +MISOPROSTOL100 MCG PO; +YUPELRI175 MCG/3 INH
--- OUTSIDE RECORDS SUMMARY | 2019-05-24 14:26 | XMS ---
PreManage Notification: NATALY SHANNON Security Agricultural Equipment Salesperson Events No recent Security Events currently on file CRITERIA MET - [facility] - Has Care Guidelines - PDMP - [facility] - 2 Visits in 30 Days CARE PROVIDERS KRYSTYNA LUCIANO Family [facility] 08/14/2018-Current PHONE: [phone] Louis Delaney Current PHONE: Unknown DR KRYSTYNA LUCIANO Primary Care Current PHONE: [phone] Sanchez Vale Current Orthopedic Surgery \T\ Fracture Clinic PHONE: Unknown Yolande has no Care Guidelines for this patient. Care History Medical/Surgical 12/22/2018 [facility] - PATIENT HAS A FOLLOW UP APT WITH DR DELANEY ON 12/24/18. 10/26/2018 [facility] - PATIENT CURRENTLY ON [employer] [facility]- - [facility] IS CURRENTLY PROVIDING PHYSICAL THERAPY- RN SERVICES. - [facility] CONTACT: [phone]. 10/12/2018 [facility] - PATIENT HAS AN APT 10/12/[address] DEL[facility] PHYSIC[facility]. - CHW DISCUSSED WITH MAURILIO DELANEY RN- THE POSSIBILITY OF REQUESTING HOME HEALTH ORDERS FOR PATIENT. THEY WILL DISCUSS WITH PATIENT TODAY. [place] [facility] NOTE: Visits indicate total known visits. ED/UCC VISIT TRACKING (12 MO.) 05/24/2019 14:23 [facility] TYPE: Emergency COMPLAINT: - CHEST PAIN 05/10/2019 14:00 [facility] TYPE: Emergency [...] to serum and vaccine status - Other snf (current) drug therapy - Cellulitis of left lower limb 12/05/2018 11:40 [facility] TYPE: Emergency COMPLAINT: - MEDICATION REACTION DIAGNOSES: - Personal history of nicotine dependence - Allergy status to penicillin - Chronic obstructive pulmonary disease, unspecified - Allergy status to narcotic agent status - Achilles tendinitis, right leg - Other snf (current) drug therapy - Allergy status to [...] Allergy status to sulfonamides status - Other buttermaker continuous churn (current) drug therapy - Major depressive disorder, single episode, unspecified - Fall on same level, unspecified, subsequent encounter - Unspecified sprain of right shoulder joint, subs encntr - Allergy status to penicillin - Chronic obstructive pulmonary disease, unspecified - Allergy status to narcotic agent status - termite control servicer (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 10/07/2018 07:11 [facility] TYPE: Emergency COMPLAINT: - FALL DIAGNOSES: - Migraine, unsp, not intractable, without status migrainosus - Other buttermaker continuous churn (current) drug therapy - residential (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 - Allergy status [...] status to narcotic agent status - Other buttermaker continuous churn (current) drug therapy - Allergy status to oth drug/meds/biol subst status - Weakness - residential (current) use [...] myocardial infarction INPATIENT VISIT TRACKING (12 MO.) 05/10/2019 14:01 [facility] TYPE: Observation COMPLAINT: - COPD EXACERBATION DIAGNOSES: - termite control servicer (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 - Tachycardia, unspecified - Personal history of nicotine dependence - Gastro-esophageal reflux disease without esophagitis - Presence of coronary angioplasty implant and graft - Allergy status to narcotic agent status - Allergy status to other antibiotic agents status - Athscl heart disease of [place] coronary artery w/o ang pctrs - Hyperlipidemia, unspecified - Allergy status to sulfonamides status - Unspecified mood [affective] disorder - Personal history of non-Hodgkin lymphomas - Allergy status to penicillin - Allergy status to serum and vaccine status - Other buttermaker continuous churn (current) drug therapy - termite control servicer (current) use of inhaled steroids - Chronic obstructive pulmonary disease w (acute) exacerbation - residential (current) use of non-steroidal non-inflam (NSAID) [email or web address]
--- NOTE | 2019-05-24 19:40 | EKG ---
[facility] [address] [place], [place] [address] Signed Normal sinus rhythm Septal infarct (cited on or before 15-JUL-2016) Abnormal ECG When compared with ECG of 10-MAY-2019 14:33, Vent. rate has decreased BY 37 BPM Confirmed by MONROE BOONE DO ([id number]) on 05/24/2019 7:40:34 PM Electronically Signed By: MONROE BOONE DO 05/24/191939 PATIENT NAME: NATALY SHANNON Electrocardiogram DATE OF : 44 PHYSICIAN: MONROE BOONE DO REPORT #: [id number] REPORT IS CONFIDENTIAL AND NOT TO BE RELEASED WITHOUT AUTHORIZATION
--- NOTE | 2019-05-24 20:41 | NUR ---
PT ADMITTED FROM ED TO ROOM 114, ALERT AND ORIENTATED, DRY HEAVING. ABLE TO SCOOT SELF OVER FROM STRETCHER, WHICH INDUCED MORE DRY HEAVES. ONCE IN BED, RETCHING DECREASED. ON 2 L CHRONIC O2.
--- NOTE | 2019-05-24 21:00 | NUR ---
ONCE LIGHTS OFF AND QUESTIONS/ADMISSION PROCESS COMPLETE PT SLEPT, RESP EVEAN AND UNLABORED. PRIMARY DANIELLE ASKED PT DURING ADMISSION WHEN SHE TOOK HER MEDICATIONS, STATED LAST NIGHT.
--- NOTE | 2019-05-24 21:01 | NUR ---
PT ASSESSMENT COMPLETE. PT RESTING IN BED WITH EYES COVERED, REQUESTS WARM COMPRESS FOR HER FACE, PROVIDED. PT REPORTS NAUSEA, HEADACHE. DENIES SOB. O2 IN PLACE @ LPM. LUNG SOUNDS CLEAR/DIM THROUGHOUT. BT'S ACTIVE. ABD TENDER TO PALPATION. PT WITH ONGOING NAUSEA. IV FLUSHED, WNL, PATENT. IVF INFUSING. PT DENIES FURTHER NEEDS. ROLLING MILL PLUGGER AT BEDSIDE FOR ADMISSION PROCESS. CALL LIGHT IN REACH.
--- NOTE | 2019-05-24 22:19 | NUR ---
PT UTLIZES CALL LIGHT, REQUESTS NEW WARM COMPRESS. PROVIDED. PT DENIES FURTHER NEEDS AT THIS TIME. CALL LIGHT IN REACH.
--- NOTE | 2019-05-25 00:30 | NUR ---
PT RESTING IN BED WITH EYES CLOSED. RESPIRATIONS EVEN AND UNLABORED. DOES NOT WAKE WHILE IMPACT HAMMER OPERATOR AT DOORWAY. CALL LIGHT WITHIN REACH.
--- NOTE | 2019-05-25 01:34 | NUR ---
PT ASSESSMENT COMPLETE. PT UTILIZES CALL LIGHT, REQUESTS TO USE THE BATHROOM AND TO HAVE ANOTHER WARM COMPRESS. PT REPORTS PAIN, 9/10, HEADACHE. PT REPORTS THAT NAUSEA CONTINUES. PRN PHENERGAN AND TYLENOL ADMINISTERED. PT UP TO BATHROOM AND BACK TO BED. DENIES FURTHER NEEDS AT THIS TIME. SHE STATES IF SHE CAN JUST SLEEP IT IS A BLESSING. CALL LIGHT IN REACH.
--- NOTE | 2019-05-25 01:57 | NUR ---
PT UTILIZES CALL LIGHT, REQUESTS TO USE THE BATHROOM AGAIN. REPORTS THAT NAUSEA IS IMPROVED. CONTINUES TO REPORT HEADACHE. PT UP TO BSC AND BACK TO BED WITH 1 PA, TOLERATED WELL. DENIES FURTHER NEEDS. CALL LIGHT IN REACH.
--- NOTE | 2019-05-25 04:00 | NUR ---
PT UTLIZES CALL LIGHT, REQUESTS TO USE THE BATHROOM. PT UP TO BSC AND BACK TO BED WITH 1 PA. PT TOLERATED WELL. PT REPORTS THAT HER HEADACHE IS "BACKING OFF A BIT" AGREES THAT SHE IS FEELING A LITTLE BETTER. PT DENIES FURTHER NEEDS AT THIS TIME. CALL LIGHT IN REACH.
--- NOTE | 2019-05-25 06:19 | NUR ---
PT UTILIZES CALL LIGHT TO USE THE BATHROOM. PT UP TO BSC WITH GRIEF COUNSELLOR ASSISTANCE. PT REQUESTS MEDICATION. PT EDUCATION RE: AVAILABILITY OF TYLENOL. PRN PHENERGAN ADMINISTERED. PT STATES THAT SHE IS STARTING FEEL MUCH BETTER. RATING PAIN AT A 7, STATES THAT NAUSEA IS IMPROVING. PT STATES THAT "EVERYONE HAS BEEN WONDERFUL." DENIES FURTHER NEEDS AT THIS TIME. CALL LIGHT IN REACH.
--- NOTE | 2019-05-25 09:08 | NUR ---
PT LYING IN BED. REQUESTED TO HAVE CURTAINS CLOSED DUE TO LIGHT SENSITIVITY, DONE AT THIS TIME. RATES MIGRAINE PAIN 10/14. PRN TYLENOL ADMINISTERED. PT HAD ALL OF CLEAR LIQUID TRAY THIS AM, MANOLO WELL DENIES NAUSEA. ALERT AND ORIENTED TO ALL. ASSESSMENT COMPLETED. CALL LIGHT WITHIN REACH.
--- NOTE | 2019-05-25 10:36 | NUR ---
PATIENT UP TO BATHROOM AND BACK TO BED, 1PA. CALL LIGHT IN REACH. NO FURTHER NEEDS AT THIS TIME.
--- NOTE | 2019-05-25 12:35 | NUR ---
PT APPEARS TO BE SLEEPING. EYES CLOSED, RESP EVEN AND UNLABORED.
[2019-05-25] MEDS ORDERED: IPRAT-ALBUT 0.5-3 ML INH (12:55)
--- NOTE | 2019-05-25 13:48 | NUR ---
PT WAS SITTING ON SIDE OF BED, BEGINNING TO EAT LUNCH. SHE WAS UPSET, AND MAYBE A LITTLE EMBARRASED THAT SHE IS BACK SO SOON FROM HER MOST RECENT ADMISSION. GAVE ENCOURAGEMENT, PT REQUESTED PRAYER. WILL FOLLOW NEEDED
--- NOTE | 2019-05-25 14:10 | NUR ---
PT LYING IN BED IN THE DARK SHE IS STILL HAVING SOME LIGHT SENSITIVITY. STATES THAT MIGRAINE PAIN IS IMPROVING. DENIES NAUSEA OR OTHER CONCERN. SBA TO RESTROOM AND BACK TO BED. CALL LIGHT WITHIN REACH.
--- NOTE | 2019-05-25 14:15 | NUR ---
MED REC COMPLETE
--- NOTE | 2019-05-25 16:25 | NUR ---
PT SITTING UP IN BED AWAKE. REPORTS MIGRAINE PAIN DOWN TO 3/10 AND REGAINING STRENGTH. MANOLO REG DIET WELL. DENIES NEEDS OR CONCERNS AT THIS TIME. CALL LIGHT WITHIN REACH.
--- NOTE | 2019-05-25 18:48 | NUR ---
PATIENT IN BED WATCHING TV. FRESH WATER GIVEN. CALL LIGHT IN REACH. NO FURTHER NEEDS AT THIS TIME.
--- NOTE | 2019-05-25 20:15 | NUR ---
RECEIVED REPORT FROM DAY SHIFT RN. PATIENT ASSISTED TO THE RESTROOM. PATIENT IS A SBA. PATIENT DENIED ANY ISSUES WITH AMBUALTION. PATIENT WAS ABLE TO VOID. PATIENT IS BACK IN BED RESTING. CALL LIGHT IN REACH.
--- NOTE | 2019-05-25 21:40 | NUR ---
PATIENT ASSESMENT COMPLETED. PATIENT IS RESTING IN BED WATCHING TV. PATIENTS VITALS TAKEN AND RECORDED. INTAKE AND OUPUT RECORDED. PATIENT REMAINS ON 2L VIA NC WHICH IS CHRONIC. PATIENTS EVENING MEDICATIONS GIVEN PER ORDER. PATIENT DENIES ANY FURTHER NEEDS. CALL LIGHT IN REACH.
--- NOTE | 2019-05-25 23:29 | NUR ---
CALL LIGHT ANSWERED. SBA TO THE BATHROOM AND BACK TO BED. VANILLA PUDDING PROVIDED. NO OTHER NEEDS AT THIS TIME.
--- NOTE | 2019-05-25 23:58 | NUR ---
PATIENT IS RESTING IN BED WATCHING TV. PATIENT DENIES ANY NEEDS. CALL LIGHT IN REACH.
--- NOTE | 2019-05-26 02:08 | NUR ---
CALL LIGHT ANSWERED. SBA TO THE BATHROOM AND BACK TO BED. CRACKERS AND APPLE JUICE PROVIDED, PER PATIENT'S REQUEST.
--- NOTE | 2019-05-26 02:15 | NUR ---
PATIENT JUST UP TO RESTROOM WITH KERWIN CRAWFORD. PATIENT IS RESTING IN BED. 2L VIA NC IN USE. PATIENT IS EATING A SNACK. PATIENT DENIES ANY NAUSEA OR HEADACHE. NO FURTHER NEEDS NOTED. CALL LIGHT IN REACH.
--- NOTE | 2019-05-26 05:13 | NUR ---
PATIENT RESTD WELL DURING THE LATER PART OF THE SHIFT. PATIENT IS ON A REGULAR DIET, TOLERATING IT WELL, AND NO NAUSEA NOTED. PATIENT HAS DENIED ANY PAIN. PATIENT IS ON 2L VIA NC AND THIS IS CHRONIC. PATIENT IS A SBA. PATIENT IS SL AND IV FLUSHES WELL. PATIENT IS AAOX4 AND USES CALL LIGHT APPROPRIATELY.
--- NOTE | 2019-05-26 05:47 | NUR ---
PATIENT IS RESTING IN BED. PATIENTS VITALS TAKEN AND RECORDED. INTAKE AND OUPUT RECORDED. PATIENT DENIES A HEADACHE. PATIENT RATES PAIN AT A 3/10. PATIENT STATED "I HAVE CHRONIC PAIN AND LIVE AT A 3". PATIENT DENIES THE NEED FOR PAIN MEDICATION AT THIS TIME. PATIENT DENIES ANY NAUSEA. NO FURTHER NEEDS NOTED. CALL LIGHT IN REACH.
--- NOTE | 2019-05-26 07:33 | NUR ---
REPORT RECIEVED FROM PRISON GUARD SUPERVISOR RNYOAN.
--- NOTE | 2019-05-26 07:35 | NUR ---
PATIENT RESTING IN BED. PATIENT REFUSED TO TAKE A SHOWER TODAY BECAUSE SHE SAID THAT MAYBE SHE WILL DISCHARGE TO HOME TODAY Y SHE PREFERS TO TAKE A SHOWER AT HOME. CALL LIGHT WITHIN REACH. NO OTHER NEEDS AT THIS TIME
--- NOTE | 2019-05-26 08:48 | NUR ---
MORNING ASSESSMENT DONE. RESPIRATORY THERAPIST IN TO DO MORNING MEDICATION TREATMENTS. PT TOLERATED 100% OF HER BREAKFAST. PT DENIES PAIN, N/V, OR HEADACHE.
--- NOTE | 2019-05-26 09:15 | NUR ---
Spoke with Cintia and she plans on discharging today. Denies needs for DME, has 02 at home from [facility]. Son will pick her up for discharge. Discussed her migraines and states she gets great relief form botox injections. Denies needs.
--- NOTE | 2019-05-26 09:18 | NUR ---
PATIENT RESTING IN BED. VITAL SIGNS AND I&O DONE. CALL LIGHT WITHIN REACH. NO OTHER NEEDS AT THIS TIME
--- NOTE | 2019-05-26 10:44 | NUR ---
PATIENT LOOKING AT INFORMATION ON [facility]ED DIRECTIVES, PLANS ON DISCUSSING MATTER WITH FAMILY AND PCP AFTER DISCHARGE.
--- NOTE | 2019-05-26 11:25 | NUR ---
DISCUSSED WITH PT ABOUT HOW WE HAVE GONE OVER THE COPD EDUCATION MULTIPLE TIMES AND SHE REQUESTED THAT WE DO SOMETHING DIFFERENT IT WASN'T HER COPD THAT BROUGHT HER TO THE HOSPITAL THIS TIME, SO WE DISCUSSED HER MIGRAINES. PT WAS PLEASED AND STATED THAT SHE APPRECIATED THAT. SHE DENIED FURTHER QUESTIONS, OR CONCERNS OR ISSUES.
--- NOTE | 2019-05-26 12:36 | NUR ---
PATIENT GIVEN DISCHARGE INSTRUCTIONS, LEFT ARM SALINE LOCK REMOVED WITH CATHETER INTACT. VITALS TAKEN. PATIENT HAS HOME PORTABLE OXYGEN CONCENTRATOR WITH HER IN ROOM. PATIENT IS CALLING FOR A RIDE.
--- NOTE | 2019-05-31 13:27 | NUR ---
RECEIVED A MESSAGE FROM GIANNA IN [facility] STATING THAT HE HAD TALKED TO THE PT AND THAT HE WAS CONCERNED ABOUT HER SHE IS HAVING SOME SHORTNESS OF BREATH FOR A COUPLE DAYS AND HE WANTED US TO CHECK ON HER. I CALLED HER RIGHT BACK AND SHE SAID ON THE MAGNET SHE IS IN THE YELLOW ZONE. SHE ALSO SAID THIS USUALLY PASSES IN 2 TO 3 DAYS. SHE SAYS SHE DOESN'T FEEL SHE NEEDS TO COME TO THE ER. I SUGGESTED SHE IS WELCOME TO COME TO ER OR IF SHE WANTS TO SHE CAN CALL HER PULMONALGIST AND TALK WITH HIM. SHE STATES THAT RIGHT NOW SHE IS GOING TO CALL HIM AND TALK WITH HIM. SHE STATES I HAVE ALREADY BEEN TO THE ER TWICE AND DON'T WANT TO BE A NUSENSE., I ASSURED HER SHE IS NOT NOR SHOULD SHE EVER THINK SHE WOULD BE A BOTHER, THAT IS WHAT THE ER IS FOR. SHE IS CALLING HER
== END 2019-05-26 13:05 | disposition home or self-care (01) ==
LOC: ED 14:23 → MS 14:24
PROVIDERS: ADMIT Student in an Organized Health Care Education/Training Program
DX: G43.809 Other migraine, not intractable, without status migrainosus (principal); E78.5 Hyperlipidemia, unspecified; I10 Essential (primary) hypertension; K21.9 Gastro-esophageal reflux disease without esophagitis; J44.9 Chronic obstructive pulmonary disease, unspecified; F39 Unspecified mood [affective] disorder; I25.10 Atherosclerotic heart disease of native coronary artery without angina pectoris; Z88.0 Allergy status to penicillin; Z88.2 Allergy status to sulfonamides; Z88.7 Allergy status to serum and vaccine; Z79.2 Long term (current) use of antibiotics; Z88.5 Allergy status to narcotic agent; Z88.8 Allergy status to other drugs, medicaments and biological substances; Z79.51 Long term (current) use of inhaled steroids; Z79.899 Other long term (current) drug therapy
CPT/HCPCS: 36415; 70450; 71046; 80048; 80053; 81001; 83735; 84484; 85025; 93005; 93010; 94640; 94760; 96361; 96374; 96375; 96376; 99285-25; C9113; G0378; J1100; J2405; J2550; J2765; J7030; J7121

== ENCOUNTER 2019-12-11 13:50 | Emergency (ER) | payer MEDICARE, OTHER, MEDICAID ==
[~2019-12-11] VITALS: Ht 162.6 cm; Wt 69.8 kg
--- OUTSIDE RECORDS SUMMARY | ~2019-12-11 | XMS | Clinical Summary ---
Demographics + + + | Address | [address] | | | [place] [address] | + + + | Home Phone | | + + + | Preferred Language | Unknown | + + + | Marital Status | Single | + + + | Rastafari Affiliation | Unknown | + + + | Race | White | + + + | Ethnic Group | Not or | + + + Author + + + | Author | [facility] | | | and [place] | + + + | Organization | [facility] | | | and [place] | + + + | Address | Unknown | + + + | Phone | Unavailable | + + + Support + + +---------+ + | Name | Relationship | Address | Phone | + + +---------+ + | Osorio Webster | ECON | Unknown | | + + +---------+ + | Toñito Hernandez | ECON | Unknown | | + + +---------+ + Care Team Providers + +------+ + | Care Able Seaman Name | Role | Phone | + +------+ + | David Arias MD | PCP | | + +------+ + Allergies + + + + + + | Active Allergy | Reactions | Severity | Noted | Comments | | | | | Date | | + + + + + + | Codeine | | | 09/19/19 | | | | | | 17 | | + + + + + + | Codeine Sulfate | Nausea And Vomiting | Low | | | + + + + + + | Isosorbide Nitrate | Nausea And Vomiting | Low | 03/30/20 | Other reaction(s): | | | | | 14 | Headache | + + + + + + | Levofloxacin | Other (See Comments) | | 09/21/19 | . | | | | | 20 | | + + + + + + | Penicillins | Anaphylaxis | High | | | + + + + + + | Rifampin | Hives | Medium | 02/07/20 | | | | | | 18 | | + + + + + + | Sulfa Antibiotics | | High | 02/07/20 | Other reaction(s): | | | | | 18 | Severe Skin | | | | | | Reaction | | | | | | HIVES/SWELLING | + + + + + + | Tetanus Toxoid | | Low | 12/16/19 | Other reaction(s): | | | | | 14 | GI Distress | + + + + + + | Tetanus Toxoids | Hives | Low | | | + + + + + + Medications + + + +---------+------+------+-------+ | Medication | Sig | Dispensed | Refills | Star | End | Statu | | | | | | t | Date | s | | | | | | Date | | | + + + +---------+------+------+-------+ | oxygen | Inhale 2 L into the | | 0 | | | Activ | | | lungs continuous. | | | | | e | + + + +---------+------+------+-------+ | amitriptyline | Take one tablet at | | 99 | 02/0 | | Activ | | (ELAVIL) 25 mg | bedtime | | | 1/20 | | e | | tablet | | | | 17 | | | + + + +---------+------+------+-------+ | fluticasone | 2 sprays by Nasal | | 99 | 02/0 | | Activ | | (FLONASE) 50 | route Daily. | | | 9/20 | | e | | mcg/nasal spray | | | | 17 | | | + + + +---------+------+------+-------+ | OnabotulinumtoxinA | Inject as directed | | 0 | | | Activ | | (BOTOX IJ) | Every 3 months. | | | | | e | + + + +---------+------+------+-------+ | aspirin 81 mg EC | Take 81 mg by mouth | | 0 | | | Activ | | tablet | Daily. | | | | | e | + + + +---------+------+------+-------+ | SUMAtriptan | Take 100 mg by mouth | | 0 | | | Activ | | (IMITREX) 100 mg | Daily as needed. | | | | | e | | tablet | | | | | | | + + + +---------+------+------+-------+ | metoprolol | Take 50 mg by mouth | | 0 | | | Activ | | succinate | Daily. | | | | | e | | (TOPROL-XL) 50 mg 24 | | | | | | | | hr tablet | | | | | | | + + + +---------+------+------+-------+ | meloxicam (MOBIC) | | | 0 | 11/0 | | Activ | | 15 mg tablet | | | | 6/20 | | e | | | | | | 19 | | | + + + +---------+------+------+-------+ | dexamethasone | | | 0 | 09/2 | | Activ | | (DECADRON) 2 MG | | | | 4/20 | | e | | tablet | | | | 19 | | | + + + +---------+------+------+-------+ | miSOPROStol | | | 0 | 12/0 | | Activ | | (CYTOTEC) 100 mcg | | | | 4/20 | | e | | tablet | | | | 19 | | | + + + +---------+------+------+-------+ | atorvaSTATin | TAKE ONE TABLET BY | 90 | 0 | 03/1 | | Activ | | (LIPITOR) 40 mg | MOUTH NIGHTLY AT | tablet | | 9/20 | | e | | tablet | BEDTIME | | | 20 | | | + + + +---------+------+------+-------+ | formoterol | Take 2 mLs by | 120 mL | 5 | 03/1 | | Activ | | (PERFOROMIST) 20 | nebulization Every | | | 9/20 | | e | | MCG/2ML nebulizer | 12 hours. Duration: | | | 20 | | | | solution | Lifetime Dx: J43.2 | | | | | | | | Centrilobular | | | | | | | | emphysema | | | | | | + + + +---------+------+------+-------+ | budesonide | USE 1 VIAL IN | 60 vial | 3 | 08/05 | | Activ | | (PULMICORT) 0.5 mg/2 | NEBULIZER TWICE | | | 04/26 | | e | | mL nebulizer | DAILY - Rinse Mouth | | | 20 | | | | solution | After Use | | | | | | + + + +---------+------+------+-------+ | | Take 3 mLs by | 90 mL | 5 | 09/05 | | Activ | | albuterol-ipratropiu | nebulization every 4 | | | 09/24 | | e | | m 2.5-0.5 mg/3 mL | hours as needed for | | | 20 | | | | SOLNIndications: | Wheezing. | | | | | | | Chronic obstructive | | | | | | | | pulmonary disease, | | | | | | | | unspecified COPD | | | | | | | | type ([facility]) | | | | | | | + + + +---------+------+------+-------+ Active Problems + + + | Problem | Noted Date | + + + | Irregular heartbeat | 03/17/2019 | + + + | History of amaurosis fugax | 07/02/2018 | + + + | History of peptic ulcer | 07/02/2018 | + + + | Paraesophageal hernia | 07/02/2018 | + + + | Chest pain at rest | 06/25/2018 | + + + | CAD (coronary artery disease) | 06/25/2018 | + + + + + | Overview: s/p 4 stents 2013 | + + + + + | Hypoxemia | 06/03/2018 | + + + | Centrilobular emphysema | 04/01/2018 | + + + | Status post placement of implantable loop | 11/24/2013 | | [id number]-Vifowrphl-50/20/14 | | + + + + + | Overview: Lv XT 9529 # [id number] | + + + + + | Tachycardia | 06/29/2013 | + + + + + | Overview: Holter Monitor 07/27/13, shows predominant rhythm | | is normal sinus with the heart rate ranging between 66 and 152 | | BPM, average heart rate was 99 BPM during the 48:32 hour | | recording, very rare ventricular events including 4 couplets and | | one run of bigeminy, very rare supraventricular events including | | 2 three beat runs of PSVT, maximum rate was 170 BPM (13:20-1), no | | bradycardia or pauses, patient did not report any symptoms. | + + + + + | PERIODIC LIMB MOVEMENT DISORDER | 02/06/2011 | + + + | OBSTRUCTIVE SLEEP APNEA | 01/04/2011 | + + + | COPD | 01/04/2011 | + + + | POST TRAUMATIC STRESS SYNDROME | 01/04/2011 | + + + | DRUG ABUSE, IN REMISSION | 01/04/2011 | + + + + + | Overview: ICD-10 Record update | + + + + + | NON-HODGKIN'S LYMPHOMA | 01/04/2011 | + + + | PULMONARY EMBOLISM, HX OF | 01/04/2011 | + + + | DEPRESSION | | + + + | OSTEOPOROSIS | | + + + | CHF (congestive heart failure) | | + + + + + | Overview: Echocardiogram 07/29/13, shows normal left | | ventricular size, wall thickness and motion, preserved left | | ventricular systolic function, LVEF is 65%, grade 1 left | | ventricular function, mild aortic valve insufficiency, mild | | mitral valve regurgitation, mild tricuspid valve regurgitation, | | normal right-sided pressure, normal IVC with a normal respiratory | | collapse. | + + Resolved Problems + + + + | Problem | Noted | Resolved | | | Date | Date | + + + + | Shortness of breath | 03/17/20 | | | | 19 | 0 | + + + + | COPD exacerbation | 08/02/19 | | | | 15 | 5 | + + + + | Nocturnal hypoxemia | 06/12/19 | | | | 14 | 9 | + + + + | Chest discomfort | 11/02/19 | | | | 11 | 9 | + + + + + + | Overview: Myocardial SPECT multi study, 11/01/2010 shows EKG | | is negative, a normal regadenoson sestamibi myocardial perfusion | | imaging study, normal left ventricular size, wall thickness and | | motion, preserved left ventricular systolic function, LVEF by | | gated SPECT is 72%.Stress Test 07/29/13, shows normal persantine | | sestamibi myocardial perfusion study with a normal left | | ventricular size and wall thickness, preserved left ventricular | | systolic function, LVEF by gated SPECT 80%. | + + + +---+ + | Pulmonary emphysema | | | | | | 9 | + +---+ + + + | Overview: PRATIK [id number] Decision | + + + +---+ + | Sleep apnea | | | | | | 9 | + +---+ + | Dyspnea on exertion | | | | | | 4 | + +---+ + | Hypoxemia | | | | | | 9 | + +---+ + Encounters +--------+---------+ + + + | Date | Type | Specialty | Care Team | Description | +--------+---------+ + + + | 09/20/ | Office | Pulmonology | Oleksandr Hyde, | Chronic obstructive | | 2019 | Jonathon | | | pulmonary disease, | | | | | | unspecified COPD | | | | | | type (HCC) (Primary | | | | | | Dx); Hypoxemia | +--------+---------+ + + + | 09/19/ | Refill | Cardiology | Isaias Decker MD | Medication Refill | | 2019 | | | | | +--------+---------+ + + + from Last 3 Months Immunizations + + + + | Name | Administration Dates | Next Due | + + + + | INFLUENZA 67 Y OR >, | 01/22/2018, 01/15/2016, 01/19/2015 | | | TRIVALENT HIGH-DOSE | | | + + + + | INFLUENZA PF 20 Y OR | 01/19/2014, 01/19/2013, 01/20/2012 | | | >,TRIVALENT | | | | RECOMBINANT | | | + + + + | INFLUENZA TRIV | 02/15/2013, 03/12/2011, 01/31/2010, | | | W/(CHARMAINE/ADOL/ADUL | 12/15/2008, 03/20/2007, 01/20/2006 | | | T),MULTIDOSE | | | + + + + | PNEUMOCOCCAL | 08/19/2014 | | | CONJUGATE 13-VALENT | | | | (PCV13) | | | + + + + | PNEUMOCOCCAL | 12/10/2012, 01/10/2011, 04/07/1996 | | | POLYSACCHARIDE | | | | 23-VALENT (PPSV23) | | | + + + + | TDAP, (ADOL/ADULT) | 08/24/2011, 06/16/2010 | | + + + + | ZOSTER, 1 DOSE | 06/16/2009, 01/24/2009, 10/24/2008 | | | (ZOSTAVAX) | | | + + + + Family History + + +------+ + | Medical History | Relation | Name | Comments | + + +------+ + | Allergies | Brother | Keven | | + + +------+ + | COPD | Father | | | + + +------+ + | Lung cancer | Father | | | + + +------+ + | Other (see comment) | Father | | chronic bronchitis | + + +------+ + | Allergies | Mother | | | + + +------+ + | Breast cancer | Mother | | | + + +------+ + | Hypertension | Son | | | + + +------+ + + +---------+ + + | Relation | Name | Status | Comments | + +---------+ + + | Brother | Keven | Alive | | + +---------+ + + | Daughter | | Alive | | + +---------+ + + | Daughter | | Alive | | + +---------+ + + | Father | | | COPD and heart | | | | (Age | | | | | 57) | | + +---------+ + + | Mother | | | UTI and sepsis | | | | (Age | | | | | 92) | | + +---------+ + + | Sister | Terri | | Suicide | | | | (Age | | | | | 50) | | + +---------+ + + | Son | | Alive | | + +---------+ + + Social History + + + +--------+ + | Tobacco Use | Types | Packs/Day | Years | Date | | | | | Used | | + + + +--------+ + | Former Smoker | Cigarettes | 4 | 45 | Quit: 04/07/1989 | + + + +--------+ + + +---+---+---+ | Smokeless Tobacco: | | | | | Never Used | | | | + +---+---+---+ + + | Tobacco Cessation: Counseling Given: No | + + + + +---------+ + | Alcohol Use | Drinks/Week | oz/Week | Comments | + + +---------+ + | No | 0 Standard drinks | 0.0 | | | | or equivalent | | | + + +---------+ + + + + | Sex Assigned at | Date Recorded | | | | + + + | Not on file | | + + + Last Filed Vital Signs + + + + + | Vital Sign | Reading | Time Taken | Comments | + + + + + | Blood Pressure | 124/76 | 09/21/2019 10:28 AM | | | | | PDT | | + + + + + | Pulse | 79 | 09/21/2019 10:28 AM | | | | | PDT | | + + + + + | Temperature | 37.4 C (99.3 F) | 03/17/2019 11:28 AM | | | | | PST | | + + + + + | Respiratory Rate | 16 | 03/20/2017 8:53 AM | | | | | PST | | + + + + + | Oxygen Saturation | 98% | 09/21/2019 10:28 AM | 2L of oxygen | | | | PDT | | + + + + + | Inhaled Oxygen | - | - | | | Concentration | | | | + + + + + | Weight | 71.1 kg (156 lb 12 | 09/21/2019 10:28 AM | | | | oz) | PDT | | + + + + + | Height | 162.6 cm (5' 4") | 09/21/2019 10:28 AM | | | | | PDT | | + + + + + | Body Mass Index | 26.91 | 09/21/2019 10:28 AM | | | | | PDT | | + + + + + Plan of Treatment + + + + + | Health Maintenance | Due Date | Last | Comments | | | | Done | | + + + + + | Hepatitis C | | | | | Screening | 3 | | | + + + + + | Breast Cancer | | | | | Screening | 8 | | | + + + + + | Vaccine: Zoster (2 | | 06/17/19 | | | of 3) | 0 | 10, | | | | | 01/25/20 | | | | | 09, | | | | | 10/25/19 | | | | | 09 | | + + + + + | Adult Annual | | | | | Wellness Visit | 5 | | | + + + + + | Vaccine: Influenza | | 01/23/20 | | | (#1) | 0 | 18, | | | | | 01/15/20 | | | | | 16, | | | | | 01/20/20 | | | | | 15, | | | | | Addition | | | | | al | | | | | history | | | | | exists | | + + + + + | Med Mgmt: BUN | | 03/17/20 | | | | 0 | 19, | | | | | 03/17/20 | | | | | 17, | | | | | 01/01/20 | | | | | 16, | | | | | Addition | | | | | al | | | | | history | | | | | exists | | + + + + + | Med Mgmt: Cr | | 03/17/20 | | | | 0 | 19, | | | | | 03/17/20 | | | | | 17, | | | | | 01/01/20 | | | | | 16, | | | | | Addition | | | | | al | | | | | history | | | | | exists | | + + + + + | Medication | | 03/17/20 | | | Management | 0 | 19 | | + + + + + | Vaccine: | Completed | 08/20/19 | | | Pneumococcal (PPSV23 | | 15, | | | only) 65+ | | 12/11/19 | | | High/Highest Risk | | 13, | | | | | 01/11/20 | | | | | 11, | | | | | Addition | | | | | al | | | | | history | | | | | exists | | + + + + + Implants + +------+--------+ +--------+--------+--------+ | Implanted | Type | Area | Manufacture | Device | Shelf | Model | | | | | r | | Expira | / | | | | | | Identi | tion | Serial | | | | | | fier | Date | / Lot | + +------+--------+ +--------+--------+--------+ | Loop Recorder Reveal Xt 9529 | | Left: | [employer] - | | 09/01/ | [id number] | | - [id number]: Qty: | | Chest | MEDT | | 2014 | /[id number] | | 1 on 11/24/2013 by Roman, | | | | | | [id number] | | MD Pooja at [facility] | | | | | | / | | [facility] | | | | | | | + +------+--------+ +--------+--------+--------+ Results Not on filefrom Last 3 Months Insurance + +--------+ +--------+ +---------+--------+ | Payer | Benefi | Subscriber | Effect | Phone | Address | Type | | | t Plan | ID | juan manuel | | | | | | / | | Dates | | | | | | Group | | | | | | + +--------+ +--------+ +---------+--------+ | MEDICARE | MEDICA | [id number] | 07/07/19 | [phone] | | Medica | | | RE | | 08-Pre | 5 | | re | | | PART A | | sent | | | | | | AND B | | | | | | + +--------+ +--------+ +---------+--------+ | HUMANA | HUMANA | [id number] | 07/07/19 | [phone] | | Indemn | | | MDCR | | 12-Pre | 4 | | ity | | | SUPPL | | sent | | | | + +--------+ +--------+ +---------+--------+ + +--------+ +--------+ + + | Guarantor Name | Accoun | Relation to | Date | Phone | Billing Address | | | t Type | Patient | of | | | | | | | | | | + +--------+ +--------+ + + | Priscila Brasher | Person | Self [birth year] | [address] | | | al/Fam | | 1941 | [phone] | [place] | | | jb | | | 8 (Home) | [phone] | + +--------+ +--------+ + + | Priscila Brasher | Person | Self | [birth year] | [address] | | | al/Fam | | 1941 | [phone] | [place] | | | jb | | | 8 ([place]) | [phone] | + +--------+ +--------+ + + Advance Directives + + + + + | Type | Date Recorded | Patient | Explanation | | | | Admitting Coordinator | | + + + + + | Power of | | | | | Solar Photovoltaic Installer | | | | + + + + + | Advance | 11/24/2013 11:45 | | | | Directive | AM | | | + + + + +
--- OUTSIDE RECORDS SUMMARY | ~2019-12-11 | XMS | Encounter Summary ---
Demographics + + + | Address | [address] | | | [place] [address] | + + + | Home Phone | | + + + | Preferred Language | Unknown | + + + | Marital Status | Single | + + + | Congregational Affiliation | Unknown | + + + | Race | White | + + + | Ethnic Group | Not or | + + + Author + + + | Author | [facility] | | | and [place] | + + + | Organization | [facility] | | | and [...] Team Providers + +------+ + | Care Nature Photographer Name | Role | Phone | + +------+ + | David Arias MD | PCP | | + +------+ + Encounter Details +--------+ + + + + | Date | Type | Department | Care Team | Description | +--------+ + + + + | 01/30/ | Orders Only | [facility] | Conversion | | | 2018 | | CONVERSION | Transaction, | | | | | INTERFACES [address] | Provider Unknown | | | | | [address] [place], [place] | [phone] | | | | | [phone] | (Fax) | | | | | [phone] | | | +--------+ + + + + Social History + + + [...] | | | + +---+---+---+ + + +---------+ + | Alcohol Use [...] on file | | + + + documented as of this encounter Plan of Treatment Not on filedocumented as of this encounter Procedures + +--------+ + + + | Procedure Name | Priori | Date/Time | Associated Diagnosis | Comments | | | ty | | | | + +--------+ + + + | ECHO INTERPRETATION | Routin | 01/30/2018 | | Results for this | | OF OUTSIDE FILMS | e | 10:39 AM | | procedure are in the | | | | PDT | | results section. | + +--------+ + + + documented in this encounter Results ECHO Interpretation of Outside Films (01/30/2018 10:39 AM PDT) + + | Specimen | + + | | + + + + + | Impressions | Performed At | + + + | 1. Left ventricular systolic function is hyperdynamic with an | | | estimated EF of >70%. 2. There is moderate to severe pulmonary | | | hypertension. | | + + + + + + | Narrative | Performed At | + + + | Patient Name: PRISCILA BRASHER Date of : 1940 | | | Performing Physician: Isaias Decker MD | | | | | | INDICATIONS A-fib with RVR CONCLUSIONS | | | 1. Left ventricular systolic function is hyperdynamic with an | | | estimated EF of >70%. 2. There is moderate to severe pulmonary | | | hypertension. FINDINGS -------- ECG rhythm: Atrial fibrillation. | | | ECG rhythm: Resting tachycardia (HR>100bpm). Study: A 2-dimensional | | | transthoracic echocardiogram with m-mode, spectral and color flow | | | Doppler was perfomed. Study: This was a technically adequate study. | | | Left Ventricle: Left ventricular systolic function is hyperdynamic | | | with an estimated EF of >70%. Left Ventricle: The left ventricle | | | cavity size is normal. Left Ventricle: Left ventricular wall | | | thickness is normal. Left Ventricle: No regional wall motion | | | abnormalities. Left Ventricle: Cannot assess diastolic function due | | | to tachycardia. Right Ventricle: The right ventricle is normal in | | | size. Left Atrium: The left atrial size is normal. Right Atrium: The | | | right atrium is normal in size. Aortic Valve: The aortic valve is | | | trileaflet, and appears anatomically normal. No aortic stenosis or | | | regurgitation. Mitral Valve: The mitral valve is normal. Mitral | | | Valve: There is trace mitral regurgitation. Tricuspid Valve: The | | | tricuspid valve appears structurally normal. Tricuspid Valve: | | | [id number] tricuspid regurgitation present. Tricuspid Valve: | | | There is moderate to severe pulmonary hypertension. Tricuspid Valve: | | | The right ventricular systolic pressure (pulmonary artery systolic | | | pressure), as measured by Doppler, is 60.61mmHg. Pulmonic Valve: The | | | pulmonic valve was not well visualized. Pericardium: There is no | | | pericardial effusion. IVC/Hepatic Veins: The IVC is normal size | | | (1.5-2.5cm) and collapses >50% with sniff, consistent with central | | | venous pressures of 5-10mmHg. Aorta: The aortic root, ascending aorta | | | and aortic arch are normal. MEASUREMENTS Ao asc: | | | 3.51 cm Ao Diam: 3.[address] junct: 3.48 cm IVC: 2.03 | | | cm LA Diam: 3.49 cm LA Major: 4.70 cm EDV(Teich): 108.95 | | | ml IVSd: 0.81 cm LVIDd: 4.82 cm LVPWd: 0.98 cm LVOT Area: | | | 4.50 cm2 LVOT Diam: 2.39 cm %FS: 33.48 % EF(Teich): | | | 62.09 % ESV(Teich): 41.29 ml LVIDs: 3.21 cm SV(Teich): | | | 67.65 ml RA Major: 4.60 cm RV Major: 6.38 cm RVIDd: 3.04 | | | cm TV Patricia Diam: 3.30 cm Ao Root: 3.44 cm Ao Diam SVals: | | | 3.58 cm LVEF MOD A2C: 69.60 % SV MOD A2C: 36.09 ml LVEF MOD | | | A4C: 68.07 % SV MOD A4C: 43.23 ml EF Biplane: 70.28 % | | | LVEDV MOD BP: 61.43 ml LVESV MOD BP: 18.25 ml LVEDV MOD A2C: | | | 51.85 ml LVLd A2C: 6.10 cm LVEDV MOD A4C: 63.51 ml LVLd | | | A4C: 7.01 cm LVESV MOD A2C: 15.76 ml LVLs A2C: 5.11 cm | | | LVESV MOD A4C: 20.27 ml LVLs A4C: 5.35 cm LAESV(A-L): 48.10 | | | ml LAESV Index (A-L): 27.02 ml/m2 LAAs A2C: 16.39 cm2 LAESV | | | A-L A2C: 47.50 ml LALs A2C: 4.80 cm LAAs A4C: 16.60 cm2 | | | LAESV A-L A4C: 47.66 ml LALs A4C: 4.91 cm RAAs: 12.74 cm2 | | | RAESV A-L: 30.11 ml RAESV MOD: 30.78 ml RALs: 4.57 cm | | | TAPSE: 1.77 cm AV maxP.39 mmHg AV meanP.12 mmHg AV | | | Vmax: 1.26 m/s AV Vmean: 0.78 m/s AV VTI: 19.76 cm VARUN | | | Vmax: 4.28 cm2 VARUN (VTI): 3.87 cm2 LVOT maxP.79 mmHg | | | LVOT meanP.93 mmHg LVSI Dopp: 43.01 ml/m2 LVSV Dopp: | | | 76.56 ml LVOT Vmax: 1.20 m/s LVOT Vmean: 0.78 m/s LVOT VTI: | | | 16.99 cm MV A Dmitriy: 1.19 m/s MV Dec Livingston: 6.78 m/s2 MV | | | DecT: 122.61 ms MV E Dmitiry: 0.83 m/s MV E/A Ratio: 0.69 MV | | | PHT: 35.55 ms MVA By PHT: 6.18 cm2 RAP: 5 mmHg RVSP: | | | 60.61 mmHg TR maxP.61 mmHg TR Vmax: 3.72 m/s S': 0.20 | | | m/s Dyer And Washer: JESUS ALBERTO Authenticated by: Isaias Decker MD Report | | | Date/Time: 01-31-2018 16:53:54 | | + + + + + | Procedure Note | + + | Lorenzo Allan Conversion - 11/26/2018 3:54 PM PDT Patient Name: Divina BRASHER of | | : 1940 Performing Physician: Isaias Decker | | INDICATIONS A | | -fib with RVR CONCLUSIONS 1. Left ventricular systolic function is | | hyperdynamic with an estimated EF of >70%.2. There is moderate to severe pulmonary | | hypertension. FINDINGS--------ECG rhythm: Atrial fibrillation.ECG rhythm: Resting | | tachycardia (HR>100bpm).Study: A 2-dimensional transthoracic echocardiogram with m-mode, | | spectral and color flow Doppler was perfomed.Study: This was a technically adequate | | study.Left Ventricle: Left ventricular systolic function is hyperdynamic with an | | estimated EF of >70%.Left Ventricle: The left ventricle cavity size is normal.Left | | Ventricle: Left ventricular wall thickness is normal.Left Ventricle: No regional wall | | motion abnormalities.Left Ventricle: Cannot assess diastolic function due to | | tachycardia.Right Ventricle: The right ventricle is normal in size.Left Atrium: The left | | atrial size is normal.Right Atrium: The right atrium is normal in size.Aortic Valve: | | The aortic valve is trileaflet, and appears anatomically normal. No aortic stenosis or | | regurgitation.Mitral Valve: The mitral valve is normal.Mitral Valve: There is trace | | mitral regurgitation.Tricuspid Valve: The tricuspid valve appears structurally | | normal.Tricuspid Valve: [id number] tricuspid regurgitation present.Tricuspid | | Valve: There is moderate to severe pulmonary hypertension.Tricuspid Valve: The right | | ventricular systolic pressure (pulmonary artery systolic pressure), as measured by | | Doppler, is 60.61mmHg.Pulmonic Valve: The pulmonic valve was not well | | visualized.Pericardium: There is no pericardial effusion.IVC/Hepatic Veins: The IVC is | | normal size (1.5-2.5cm) and collapses >50% with sniff, consistent with central venous | | pressures of 5-10mmHg.Aorta: The aortic root, ascending aorta and aortic arch are | | normal. MEASUREMENTS Ao asc: 3.51 cmAo Diam: 3.[address] junct: 3.48 | | cmIVC: 2.03 cmLA Diam: 3.49 cmLA Major: 4.70 cmEDV(Teich): 108.95 mlIVSd: 0.81 | | cmLVIDd: 4.82 cmLVPWd: 0.98 cmLVOT Area: 4.50 [id number] Diam: 2.39 cm%FS: 33.48 | | %EF(Teich): 62.09 %ESV(Teich): 41.29 mlLVIDs: 3.21 cmSV(Teich): 67.65 mlRA | | Major: 4.60 cmRV Major: 6.38 cmRVIDd: 3.04 cmTV Patricia Diam: 3.30 cmAo Root: 3.44 | | cmAo Diam SVals: 3.58 cmLVEF MOD A2C: 69.60 %SV MOD A2C: 36.09 mlLVEF MOD A4C: | | 68.07 %SV MOD A4C: 43.23 mlEF Biplane: 70.28 %LVEDV MOD BP: 61.43 mlLVESV MOD BP: | | 18.25 mlLVEDV MOD A2C: 51.85 mlLVLd A2C: 6.10 cmLVEDV MOD A4C: 63.51 mlLVLd A4C: | | 7.01 cmLVESV MOD A2C: 15.76 mlLVLs A2C: 5.11 cmLVESV MOD A4C: 20.27 mlLVLs A4C: | | 5.35 cmLAESV(A-L): 48.10 mlLAESV Index (A-L): 27.02 ml/m2LAAs A2C: 16.39 | | [id number] A-L A2C: 47.50 mlLALs A2C: 4.80 cmLAAs A4C: 16.60 [id number] A-L A4C: | | 47.66 mlLALs A4C: 4.91 cmRAAs: 12.74 [id number] A-L: 30.11 mlRAESV MOD: 30.78 | | mlRALs: 4.57 cmTAPSE: 1.77 cmAV maxP.39 mmHgAV meanP.12 mmHgAV Vmax: | | 1.26 m/Stanley Vmean: 0.78 m/Stanley VTI: 19.76 cmAVA Vmax: 4.28 cm2AVA (VTI): 3.87 | | [id number] maxP.79 mmHgLVOT meanP.93 mmHgLVSI Dopp: 43.01 ml/m2LVSV Dopp: | | 76.56 mlLVOT Vmax: 1.20 m/sLVOT Vmean: 0.78 m/sLVOT VTI: 16.99 cmMV A Dmitriy: 1.19 | | m/sMV Dec Livingston: 6.78 m/s2MV DecT: 122.61 msMV E Dmitriy: 0.83 m/sMV E/A Ratio: | | 0.69MV PHT: 35.55 msMVA By PHT: 6.18 cm2RAP: 5 mmHgRVSP: 60.61 mmHgTR maxPG: | | 55.61 mmHgTR Vmax: 3.72 m/sS': 0.20 m/s Dyer And Washer: BENNETTuthenticated by: Isaias | | Alqaisi MDReport Date/Time: 01-31-2018 16:53:54 IMPRESSION: 1. Left ventricular systolic | | function is hyperdynamic with an estimated EF of >70%.2. There is moderate to severe | | pulmonary hypertension. | |Ao Diam: 3.34 cm | |Ao st junct: 3.48 cm | |IVC: 2.03 cm | |LA Diam: 3.49 cm | |LA Major: 4.70 cm | |EDV(Teich): 108.95 ml | |IVSd: 0.81 cm | |LVIDd: 4.82 cm | |LVPWd: 0.98 cm | |LVOT Area: 4.50 cm2 | |LVOT Diam: 2.39 cm | |%FS: 33.48 % | |EF(Teich): 62.09 % | |ESV(Teich): 41.29 ml | |LVIDs: 3.21 cm | |SV(Teich): 67.65 ml | |RA Major: 4.60 cm | |RV Major: 6.38 cm | |RVIDd: 3.04 cm | |TV Patricia Diam: 3.30 cm | |Ao Root: 3.44 cm | |Ao Diam SVals: 3.58 cm | |LVEF MOD A2C: 69.60 % | |SV MOD A2C: 36.09 ml | |LVEF MOD A4C: 68.07 % | |SV MOD A4C: 43.23 ml | |EF Biplane: 70.28 % | |LVEDV MOD BP: 61.43 ml | |LVESV MOD BP: 18.25 ml | |LVEDV MOD A2C: 51.85 ml | |LVLd A2C: 6.10 cm | |LVEDV MOD A4C: 63.51 ml | |LVLd A4C: 7.01 cm | |LVESV MOD A2C: 15.76 ml | |LVLs A2C: 5.11 cm | |LVESV MOD A4C: 20.27 ml | |LVLs A4C: 5.35 cm | |LAESV(A-L): 48.10 ml | |LAESV Index (A-L): 27.02 ml/m2 | |LAAs A2C: 16.39 cm2 | |LAESV A-L A2C: 47.50 ml | |LALs A2C: 4.80 cm | |LAAs A4C: 16.60 cm2 | |LAESV A-L A4C: 47.66 ml | |LALs A4C: 4.91 cm | |RAAs: 12.74 cm2 | |RAESV A-L: 30.11 ml | |RAESV MOD: 30.78 ml | |RALs: 4.57 cm | |TAPSE: 1.77 cm | |AV maxP.39 mmHg | |AV meanP.12 mmHg | |AV Vmax: 1.26 m/s | |AV Vmean: 0.78 m/s | |AV VTI: 19.76 cm | |VARUN Vmax: 4.28 cm2 | |VARUN (VTI): 3.87 cm2 | |LVOT maxP.79 mmHg | |LVOT meanP.93 mmHg | |LVSI Dopp: 43.01 ml/m2 | |LVSV Dopp: 76.56 ml | |LVOT Vmax: 1.20 m/s | |LVOT Vmean: 0.78 m/s | |LVOT VTI: 16.99 cm | |MV A Dmitriy: 1.19 m/s | |MV Dec Living[place]: 6.78 m/s2 | |MV DecT: 122.61 ms | |MV E Dmitriy: 0.83 m/s | |MV E/A Ratio: 0.69 | |MV PHT: 35.55 ms | |MVA By PHT: 6.18 cm2 | |RAP: 5 mmHg | |RVSP: 60.61 mmHg | |TR maxP.61 mmHg | |TR Vmax: 3.72 m/s | |S': 0.20 m/s | | | |Dyer And Washer: JESUS ALBERTO | |Authenticated by: Isaias Decker MD | |Report Date/Time: 01-31-2018 16:53:54 | | | |IMPRESSION: | |1. Left ventricular systolic function is hyperdynamic with an estimated EF of >70%. | |2. There is moderate to severe pulmonary hypertension. | + + documented in this encounter Visit Diagnoses Not on filedocumented in this encounter"
--- OUTSIDE RECORDS SUMMARY | ~2019-12-11 | XMS | Encounter Summary ---
Demographics + + + | Address | [address] | | | [place] [address] | + + + | Home Phone | | + + + | Preferred Language | Unknown | + + + | Marital Status | Single | + + + | Christian Affiliation | Unknown | + + + | Race | White | + + + | Ethnic Group | Not or | + + + Author + + + | Author | [facility] | | | and [place] | + + + | Organization | [facility] | | | and [...] Team Providers + +------+ + | Care Sr. Director Name | Role | Phone | + +------+ + PCP | Unavailable | + +------+ + Encounter Details +--------+ + + + + | Date | Type | Department | Care Team | Description | +--------+ + + + + | 09/13/ | Abstract | [facility] | DATA MIGRATION EFRA | | | 2011 | | Conversion Location | SR | | | | | [address] [facility] | | | | | | [place], [place] | | | | | | [address] | | | | | | [phone] | | | +--------+ + + + + Social History + +-------+ +--------+------+ | Tobacco Use | Types | Packs/Day | Years | Date | | | | | Used | | + +-------+ +--------+------+ | Never Assessed | | | | | + +-------+ +--------+------+ + + + | Sex Assigned at | Date Recorded | | | | + + + | Not on file | | + + + documented as of this encounter Last Filed Vital Signs + + + + + | Vital Sign | Reading | Time Taken | Comments | + + + + + | Blood Pressure | 112/60 | 10/25/2011 12:00 AM | | | | | PDT | | + + + + + | Pulse | - | - | | + + + + + | Temperature | - | - | | + + + + + | Respiratory Rate | - | - | | + + + + + | Oxygen Saturation | - | - | | + + + + + | Inhaled Oxygen | - | - | | | Concentration | | | | + + + + + | Weight | 66.4 kg (146 lb 4.8 | 10/25/2011 12:00 AM | | | | oz) | PDT | | + + + + + | Height | 165.1 cm (5' 5") | 01/10/2011 12:00 AM | | | | | PDT | | + + + + + | Body Mass Index | 24.35 | 01/10/2011 12:00 AM | | | | | PDT | | + + + + + documented in this encounter Plan of Treatment Not on filedocumented as of this encounter Visit Diagnoses Not on filedocumented in this encounter
--- OUTSIDE RECORDS SUMMARY | ~2019-12-11 | XMS | Encounter Summary ---
Demographics + + + | Address | [address] | | | [place] [address] | + + + | Home Phone | | + + + | Preferred Language | Unknown | + + + | Marital Status | Single | + + + | Baptism Affiliation | Unknown | + + + [...] Team Providers + +------+ + | Care Instructor [employer] Name | Role | Phone | + +------+ + | Krystyna Arias MD | PCP | | + +------+ + Encounter Details +--------+ + + + + | Date | Type | Department | Care Team | Description | +--------+ + + + + | 03/20/ | Hospital | [facility] | Conversion | CAD in [place] | | 2017 | Encounter | CENTER CV INTRA OP | Transaction, | artery; History of | | | | [address] | Provider Unknown | loop recorder; | | | | [place], [place] | [phone] | Coronary artery | | | | [address] | | disease involving | | | | [phone] | Isaias Decker MD | [place] coronary | | | | | [address] | artery of [place] | | | | | [place] [address] | heart without angina | | | | | [phone] | pectoris; | | | | | | Dyslipidemia | +--------+ + + + + Social [...] + + + | Blood Pressure | 134/70 | 03/20/2017 8:53 AM | | | | | PST | | + + + + + | Pulse | 74 | 03/20/2017 8:53 AM | | | | | PST | | + + + + + | Temperature | 36.6 C (97.8 F) | 03/20/2017 8:53 AM | | | [...] + + + + | Weight | - | - | | + + + + + | Height | - | - | | + + + + + | Body Mass Index | - | - | | + + + + + documented in this encounter Medications at Time of Discharge + + + +---------+ + + | Medication | Sig | Dispensed | Refills | Start | End Date | | | | | | Date | | + + + +---------+ + + | amitriptyline | Take one tablet at | | 99 | 05/08/19 | | | (ELAVIL) 25 mg | bedtime | | | 17 | | | tablet | | | | | | + + + +---------+ + + | aspirin 81 mg EC | Take 81 mg by mouth | | 0 | | | | tablet | Daily. | | | | | + + + +---------+ + + | fluticasone | 2 sprays by Nasal | | 99 | 05/16/19 | | | (FLONASE) 50 | route Daily. | | | 17 | | | mcg/nasal spray | | | | | | + + + +---------+ + + | OnabotulinumtoxinA | Inject as directed | | 0 | | | | (BOTOX IJ) | Every 3 months. | | | | | + + + +---------+ + + | oxygen | Inhale 2 L into the | | 0 | | | | | lungs continuous. | | | | | + + + +---------+ + + | | Take 3 mLs by | 360 mL | 11 | 03/09/20 | | | albuterol-ipratropiu | nebulization every 4 | | | 15 | 8 | | m (DUONEB) 2.5-0.5 | hours as needed | | | | | | mg/3 mL SOLN | (shortness of | | | | | | | breath). | | | | | + + + +---------+ + + | atorvaSTATin | Take one tablet at | | 0 | 03/14/20 | | | (LIPITOR) 40 mg | bedtime | | | 16 | 9 | | tablet | | | | | | + + + +---------+ + + | diclofenac | Take 75 mg by mouth | | 0 | 09/30/19 | | | (VOLTAREN) 75 mg EC | Daily. | | | 13 | 8 | | tablet | | | | | | + + + +---------+ + + | fish oil 1,000 mg | Take 2,000 mg by | | 0 | | | | capsule | mouth Daily. | | | | 8 | + + + +---------+ + + | Methenamine-Sodium | Take by mouth. | | 0 | | | | Salicylate (AZO | | | | | 8 | | URINARY TRACT | | | | | | | DEFENSE PO) | | | | | | + + + +---------+ + + | metoprolol | Take 1.5 tablets by | 45 | 6 | 08/05/19 | | | succinate | mouth Daily. | tablet | | 14 | 9 | | (TOPROL-XL) 25 mg 24 | | | | | | | hr tablet | | | | | | + + + +---------+ + + | miSOPROStol | Take one tablet | | 3 | 05/20/19 | | | (CYTOTEC) 200 MCG | daily | | | 17 | 9 | | tablet | | | | | | + + + +---------+ + + | Multiple | Take by mouth. | | 0 | | | | Vitamins-Minerals | | | | | 8 | | (CENTRUM ADULTS) | | | | | | | TABS | | | | | | + + + +---------+ + + | nitroglycerin | Place 0.4 mg under | | 0 | | | | (NITROSTAT) 0.4 mg | the tongue as needed | | | | 9 | | SL tablet | for Chest pain. | | | | | + + + +---------+ + + documented as of this encounter Progress Notes Conversion Transaction, Provider Unknown - 03/20/2017 8:59 AM PSTFormatting of this note m ight be different from the original. Nurse Progress Note by Shelbi Scott RN at 03/20/17858 Author: Shelbi Scott RN Service: (none) Author Type: Registered Nurse Filed: 03/20/17899 Date of Service: 03/20/17858 Status: Signed Enamel Buffer: Shelbi Scott RN (Registered Nurse) Discharge instructions reviewed with patient. No IV started and no conscious sedation jacobi francheska. No questions at this time. Scheduled for 2 week follow-up for wound check at [facility]. Patient escorted to [facility]. docume nted in this encounter H&P Notes Isaias Decker MD - 03/20/2017 8:04 AM PST H&P by Isaias Decker MD at 03/20/17803 Author: Isaias Decker MD Service: Cardiology Author Type: Physician Filed: 03/20/17803 Date of Service: 03/20/1704 Status: Signed Enamel Buffer: Isaias Decker MD (Physician) [facility] Service: Cardiology Pre-Operative History & Physical Interval Update There have been no significant clinical changes since the completion of the above H&P. Sedation was not given. Isaias Decker MD 03/20/2017 *CORE MEASURES REMINDER: If the patient has a known or suspected infection prior to surger y, please add diagnosis to the problem list (consider: Infection 136.9). Date of visit: 02/25/2017 Primary Care Physician: KRYSTYNA ARIAS CHIEF COMPLAINT: Chief Complaint Patient presents with Follow-up Discuss reveal HISTORY OF PRESENT ILLNESS: Ms. Brasher is a 76-year-old female who presented today with concerns about her heart rate dur ing exercise and the battery status of her loop recorder. When she exercises her heart rate goes up to 120 without any chest pain, shortness of breat h, palpitations or dizziness. She is compliant with her medications. REVIEW OF SYSTEMS: Negative except for pertinent items noted in HPI. Review of Systems Constitutional: No fatigue. HENT: Negative for nosebleeds. Eyes: Negative for visual disturbance. Respiratory: No shortness of breath. Cardiovascular: No chest pain. Gastrointestinal: Negative for nausea, vomiting, abdominal pain and blood in stool. Genitourinary: Negative for hematuria. Musculoskeletal: No myalgias. Skin: Negative for color change. Neurological: No dizziness. No syncope and numbness. Hematological: Does not bruise/bleed easily. Psychiatric/Behavioral: The patient is not nervous/anxious. PHYSICAL EXAM: BP 128/74 (BP Location: Left upper arm, Patient Position: Sitting) | Pulse 75 | Ht 1.651 m (5' 5") | Wt 67.4 kg (148 lb 9.6 oz) | SpO2 96% | BMI 24.73 kg/m Constitutional: Well-developed. Neck: No JVD present. No thyromegaly present. Cardiovascular: Regular rhythm, S1 normal and S2 normal. No murmur heard. Pulses: Radial pulses are 2+ on the right side, and 2+ on the left side. Pulmonary/Chest: Effort normal and breath sounds normal. No wheezes. No rales. Musculoskeletal: No edema. Neurological: Alert. No cranial nerve deficit. Skin: Warm and dry. DATA: Blood tests: Lab Results Component Value Date WBC 8.28 01/01/2016 RBC 4.03 01/01/2016 HGB 12.0 01/01/2016 HCT 36.9 01/01/2016 PLT 196 01/01/2016 Lab Results Component Value Date NA 146 (H) 01/01/2016 K 3.7 01/01/2016 CL 112 (H) 01/01/2016 CO2 27 01/01/2016 ANIONGAP 11 01/01/2016 GLUF 97 01/01/2016 BUN 13 01/01/2016 CREATININE 0.7 01/01/2016 BCR 19 01/01/2016 CA 8.8 01/01/2016 EGFR >60 01/01/2016 Lab Results Component Value Date CHOL 198 12/23/2014 TRIG 132 12/23/2014 LDL 109 (A) 12/23/2014 GLUF 97 01/01/2016 Lab Results Component Value Date BNP 62.4 12/15/2013 CKTOTAL 36 12/25/2013 TSH 2.09 12/16/2013 No results found for: MET EKG: February 25, 2017, reviewed personally on February 25, 2017. Sinus rhythm, heart rate 74, n ormal axis, normal P-wave and MD interval, single PVC, septal infarction. December 05, 2015, reviewed personally on December 05, 2015. Sinus rhythm, heart rate 65, sky l axis, septal infarction, single PVC, nonspecific ST-T wave changes. January 02, 2015, shows normal sinus rhythm 80 beats per minute. December 25, 2013 - sinus rhythm with nonspecific ST-T wave changes. Last Echo: March 15, 2014, EF 55% to 60%, grade 1 diastolic dysfunction, moderate tricuspid regurgit ation. December 16, 2013 - Showed EF 60% to 65%, mild mitral regurgitation, [id number] pulm onary hypertension. Last stress test: December 13, 2015. Abnormal study with low to intermediate risk. Evidence of ischemia in th e LAD territory. EF 58 percent. Tripp treadmill score -6. Last cath: December 30, 2015. No significant coronary artery disease. Patent stents in the LAD and th e RCA. February 24, 2014, positive FFR off the left anterior descending artery with angioplasty fo r the [id number] left anterior descending artery with 2 overlapping drug-eluting stents, Resolute Integrity 2.25 x 14 mm, and 2.5 x 18 mm. December 16, 2013 - Showed successful angioplasty for the right coronary artery with 2 non -overlapping drug-eluting stents in the right atrioventricular groove, Promus Premier 2.25 x 12 mm in the distal RCA and Promus Premier 2.25 x 16 mm. Carotid US: AAA screening: Lower extremity US: OTHERS: Low precordial interrogation, February 25, 2017. No significant events. 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 Loop recorder interrogation, July 30, 2016. No significant arrhythmias. Pulmonary function test, May 28, 2016. Mild obstructive pulmonary disease, response to albuterol. ASSESSMENT & PLAN: Ms. Brasher is a 76-year-old female with the follow medical problems: 1. Chronic obstructive pulmonary disease. 2. Non-Hodgkin lymphoma in remission status post chemotherapy, last in 2010. 3. Palpitations status post loop recorder implantation 11/24/2013 in [place], [employer]. 4. Previous history of tobacco use, quit in 1989. Smoked for 40 years, 4 packs per day. 5. Coronary artery disease: s/p angioplasty for the right coronary artery with 2 non-overlapping drug-eluting stent s in the right atrioventricular groove, Promus Premier 2.25 x 12 mm in the distal RCA and Pr omus Premier 2.25 x 16 mm 12/2013. 02/2014 positive FFR for her LAD with angioplasty for the mid to distal left anterior d escending artery with 2 overlapping drug-eluting stents, Resolute Integrity, 2.25 x 14 mm an d 2.5 x 18 mm. Cardiac catheter on December 30, 2015. Patent stents. Presented today for follow-up. I have reassured her today about the heart rate response with exercise. Continue with exerc ise. Blood pressure and heart rate are well controlled. Coronary artery disease is stable. 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 I will schedule removal for the loop recorder. Informed consent was obtained. Get nonfasting blood test 2 days before the procedure. Follow up in one year. The following portions of the patient's history were reviewed and updated as appropriate: Allergies, current medications. Family history, past medical history, past social history, past surgical history. Problem list. Isaias Decker MD 02/25/2017 documented in this enc ounter Plan of Treatment Not on filedocumented as of this encounter Visit Diagnoses + + | Diagnosis | + + | CAD in [place] artery Coronary atherosclerosis of [place] coronary artery | + + | History of loop recorder | + + | Coronary artery disease involving [place] coronary artery of [place] heart without | | angina pectoris | + + | Dyslipidemia Other and unspecified hyperlipidemia | + + documented in this encounter
--- OUTSIDE RECORDS SUMMARY | ~2019-12-11 | XMS | Encounter Summary ---
Demographics + + + | Address | [address] | | | [place] [address] | + + + | Home Phone | | + + + | Preferred Language | Unknown | + + + | Marital Status | Single | + + + | Mandaen Affiliation | OTH | + + + | Race | White | + + + | Ethnic Group | Not or | + + + Author + + + | Author | [facility] | + + + | Organization | [facility] | + + + | Address | Unknown | + + + | Phone | Unavailable | + + + Support + + +---------+ + | Name | Relationship | Address | Phone | + + +---------+ + | Osorio Bourgeois | ECON | Unknown | Unavailable | + + +---------+ + Care Team Providers + +------+ + | Care Land Leveler Name | Role | Phone | + +------+ + | David Arias MD | PCP | | + +------+ + Reason for Visit AUTH/CERT (Routine) +--------+--------+ + + + + | Status | Reason | Specialty | Diagnoses / | Referred By | Referred To | | | | | Procedures | Contact | Contact | +--------+--------+ + + + + | Closed | | | | | | +--------+--------+ + + + + Encounter Details +--------+ + + + + | Date | Type | Department | Care Team | Description | +--------+ + + + + | 10/13/ | Anesthesia | [address] IN[address] | Kayli Tong MD | | | 2011 | Event | [address] | [address] | | | | | [place] [facility] | [place] [place], | | | | | Ambulatory Surgery | [place] [address] | | | | | Admitting Desk | [phone] | | | | | Located on the 4th | | | | | | floor, Room 4519 | Rufina Quigley | | | | | [place], [place] | D, VEGETABLE PICKER [address] | | | | | [address] | [address] | | | | | | [place], [place] | | | | | | [address] | | | | | | [phone] | | | | | | | | +--------+ + + + + Anesthesia Record + + + + + | Procedure Name | Responsible | Anesthesia Start | Anesthesia Stop Time | | | Anesthesiologist | Time | | + + + + + | LEFT REVISION TOTAL | Kayli Tong MD | 10/14/11 1049 | 10/14/11 1237 | | ETHMOIDECTOMY, LEFT | | | | | FRONTAL SINUSOTOMY, | | | | | IMAGE GUIDANCE | | | | | WITHLANDMARX AND | | | | | FUSION (Left Nose) | | | | + + + + + +----+---+ + + | Da | T | Event | Comment | | te | i | | | | | m | | | | | e | | | +----+---+ + + | 07 | 1 | | | | /0 | 0 | | | | 9/ | 4 | | | | 20 | 6 | | | | 12 | | | | +----+---+ + + | | 1 | Pt. Check | Prior to anesthesia start, pt. Identified, examined, chart | | | 0 | | reviewed, PARQ held, anesthetic plan made or approved by | | | 4 | | attending anesthesiologist. NPO status confirmed as appropriate | | | 6 | | for procedure Preoperative evaluation: unchanged | +----+---+ + + | | 1 | An Start | | | | 0 | | | | | 4 | | | | | 9 | | | +----+---+ + + | | 1 | Eq Check | Anesthesia machine checked Equipment verified | | | 0 | | | | | 4 | | | | | 9 | | | +----+---+ + + | | 1 | An Start | | | | 0 | Data | | | | 5 | | | | | 3 | | | +----+---+ + + | | 1 | Std. Airway | | | | 1 | Mgt. | | | | 0 | | | | | 3 | | | +----+---+ + + | | 1 | Ready | | | | 1 | | | | | 0 | | | | | 5 | | | +----+---+ + + | | 1 | Abx | | | | 1 | Administere | | | | 1 | d | | | | 2 | | | +----+---+ + + | | 1 | Local | | | | 1 | Anesthetic | | | | 2 | by Surgeon | | | | 9 | | | +----+---+ + + | | 1 | Incision | | | | 1 | | | | | 3 | | | | | 1 | | | +----+---+ + + | | 1 | Quick Note | Sofiya Henderson CRNA in to relieve for 30 min break | | | 1 | | | | | 4 | | | | | 9 | | | +----+---+ + + | | 1 | Surgery end | | | | 2 | | | | | 2 | | | | | 3 | | | +----+---+ + + | | 1 | An Extubate | Neuromuscular function Intact. Pharynx suctioned. Patient obeys | | | 2 | | commands. Adequate pulmonary mechanics. | | | 3 | | | | | 3 | | | +----+---+ + + | | 1 | an stop | | | | 2 | data | | | | 3 | | | | | 3 | | | +----+---+ + + | | 1 | Anesthesia | | | | 2 | End | | | | 3 | | | | | 7 | | | +----+---+ + + +------+ | Meds | +------+ + +---------+ | Name | Total | + +---------+ | fentaNYL | 50 mcg | + +---------+ | dexamethasone | 8 mg | + +---------+ | metoclopramide | 10 mg | + +---------+ | clindamycin 600mg | 600 mg | + +---------+ | midazolam | 2 mg | + +---------+ | propofol | 140 mg | + +---------+ | lidocaine 2% | 50 mg | + +---------+ | lidocaine 4% LTA | 4 mL | + +---------+ | succinylcholine | 100 mg | + +---------+ | PHENYLephrine | 150 mcg | + +---------+ | ondansetron | 4 mg | + +---------+ | LR | 800 mL | + +---------+ + + | Name | + + | Insp Gio | + + | Et Gio | + + | O2 Flow Rate (Total Liters) | + + + + | No blood administrations on file. | + + +--------+ + + + | Type | Details | Placement | Removal | +--------+ + + + | RETIRE | 10/14/11; 0939; 10/14/11; 1510; | 10/14/11 0939 by | 10/14/11 1510 by | | D - | 18; Left; Antecubital; Lidocaine; | Eleanor Leos RN | Zainab Berry RN | | Periph | Positive; Therapy completed | | | | eral | | | | | Line | | | | +--------+ + + + documented in this encounter Social History + +-------+ +--------+ + | Tobacco Use | Types | Packs/Day | Years | Date | | | | | Used | | + +-------+ +--------+ + | Former Smoker | | | | Quit: 09/25/1989 | + +-------+ +--------+ + + +---+---+---+ | Smokeless Tobacco: | | | | | Never Used | | | | + +---+---+---+ + + +---------+ + | Alcohol Use | Drinks/Week | oz/Week | Comments | + + +---------+ + | No | | | stopped driking 36 | | | | | years ago | + + +---------+ + + + + | Sex Assigned at | Date Recorded | | | | + + + | Not on file | | + + + documented as of this encounter OR Notes Anesthesia Postprocedure Evaluation - Kayli Tong MD - 10/14/2011 4:52 PM PDT Priscila Brasher [id number] Allergies Allergen Reactions Penicillins Anaphylaxis Tetanus Codeine Past Surgical History Procedure Date Tonsillectomy and adenoidectomy Appendectomy Hysterectomy Cholecystectomy Breast lumpectomy Left hip replacement Splenectomy Abdominal hernia repair Knee surgery bilateral arthroscopic surgery Evaluation Patient personally seen and evaluated for recovery from anesthesia care, VS including tempe rature and hydration status are normal and ROS including card, resp, Neuro, and GI w/o evide nce of adverse effects Complications nesthesia Preprocedure Evaluation - Rufina Quigley CRNA - 10/14/2011 10:43 AM PDTFormatting of this note ricky ht be different from the original. Priscila Brasher [id number] Allergies Allergen Reactions Tetanus Codeine Penicillins NPO: Last Vitals: Preg Status/LMP: There is no problem list on file for this patient. Past Surgical History Procedure Date Tonsillectomy and adenoidectomy Appendectomy Hysterectomy Cholecystectomy Breast lumpectomy Left hip replacement Splenectomy Abdominal hernia repair Knee surgery bilateral arthroscopic surgery Current Medication List Name Sig IPRATROPIUM-ALBUTEROL 18 MCG-103 MCG/ACTUATION AEROSOL INHALER Inhale 2 Puffs four times da jb as needed. CLARITHROMYCIN 500 MG TAB Take 1 Tab by mouth every twelve hours. Please start the day afte r surgery. ARTHROTEC 50 ORAL Take by mouth. FLUTICASONE 50 MCG/ACTUATION NASAL SPRAY, SUSP Instill 2 Sprays into each nostril once benoit y. CENTRUM ORAL Take by mouth. METHYLPREDNISOLONE 4 MG TABS IN A DOSE PACK Follow package directions. Please start the day after surgery. TIOTROPIUM BROMIDE 18 MCG CAPS WITH INHALATION DEVICE Inhale 18 mcg once daily. No results found for this basename: rate, atrialrate, pr, qrs, qt, qtc, paxis, raxis, taxis , ekgdx Preoperative Adult Anesthesia Plan Last edited 10/14/11 1042 by SAIDA He Pulmonary: Oxygen use only at night right now; wheezing after Walking across the room Within Defined Limits except as noted below shortness of breath with exertion wheezing COPD severe (O2) sleep apnea Cardiovascular: Occasional heart palpitations with stress, denies HTN diagnosis Within Defined Limits except as noted below Functional Capacity: Low + dyspnea on exertion, palpitations and syncope CHF OTHER CARDIAC SYMPTOMS: pulmonary htn. 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 F scheduled for ETHMOIDECTOMY WITH FUSION on 10/14/2011 at 11:00 AM by Oleksandr Haddad MD at [facility] . Past medical hx is significant for COPD, Non Hodgkins Lymphoma and Hep B. Current H&P received from PCP, Dr. David Arias at [facility] dated 10/03/2011 can be found in EPIC in ENCOUNTER tab? Outside records: 10/03/2011 documentation otolaryngology ? progress notes?outside records document on 10/03/2011 by Modesta Weeks: Priscila Brasher H &P. pdf CXR dated 08/25/2011 reveals hiatal hernia. CMP and CBC dated 08/25/2011 EKG dated 10/03/2011 reveals NSR. Patient interview complete and pertinent updates documented under patient history. Patient received pre-op instructions per AVS and verbalized good understanding. Phone appointment completed as scheduled. Transportation: with son Osorio Webster. Will provide telephone number on DOS. Son is accompanying subject to hospital. Physical Exam General: Patients general appearance: Mild distress and Alert Head & Neck/Airway: Dentition: Dentures-upper, Dentures-lower and missing teeth Dental Risk: Dental Risk Mallampati: II Mouth Opening: > = 3 cm C-Spine: normal Neck Anatomy: Normal Jaw Protrusion: Normal, lower incisors can protrude past upper incisors Lung Exam: breath sounds normal Cardiac: Rhythm: regular Rate: normal Abdominal: Musculoskeletal: Neuro/Psych: Integument: Implants: Anesthesia Plan Comments ASA ASA 3 NPO Status NPO Status: NPO by protocol Monitors/Lines to be used Standard Anesthetic Consideration PONV prophylaxis Induction intravenous induction Anesthetic Technique General; Post-Op Pain Plan IV analgesics; Blood Products Interpretive Services Informed Consent PARQ discussed with: patient, Procedures, Alternatives, Risks, and Questions discussed and Risk/benefit of anesthesia plan and blood product discussed Code status in OR Patients Code Status in OR: FULL 10/14/2011 10:43 AM documented in this encou nter Miscellaneous Notes Ane airway standard - Rufina Quigley CRNA - 10/14/2011 11:19 AM PDTProcedure Reason for Intubation: For surgical procedure, Location Performed: OR , Patient was preoxyg enated Mask Ventilation Grade 1 - Ventilated by mask Rapid Sequence Induction: No Intubation Blade type: Quarles , Blade size: 2, Atraumatic laryngoscopy: Atraumatic Laryngoscopy, Laryn goscopic view: Grade I, Number of Attempts: 1, Positive for EtCO2: Yes, Breath sounds: Bilat eral and equal ETT Ett Adult: Single-lumen cuffed ETT Size: 7 ETT secured with: adhesive tape Depth at Lip: 21 cm Airway leak: No LMA Narrative Attending physically present Attending: KAYLI TONG Performed by RUFINA JAMES [facility] PreOp Note - Rufina Quigley, VEGETABLE PICKER - 10/14/2011 10:39 AM PDT ROS Pulmonary: Oxygen use only at night right now; wheezing after Walking across the room With in Defined Limits except as noted below shortness of breath with exertion wheezing COPD sev ere (O2) sleep apnea Cardiovascular: Occasional heart palpitations with stress, denies HTN diagnosis Within Defi gigi Limits except as noted below Functional Capacity: Low + dyspnea on exertion, palpitation s and syncope CHF OTHER CARDIAC SYMPTOMS: pulmonary htn. 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 F scheduled for ETHMOIDECTOMY WITH FUSION on 10/14/2011 at 11:00 AM by Oleksandr nieves MD at [facility] . Past medical hx is significant for COPD, Non Hodgkins Lymphoma and Hep B. Current H&P received from PCP, Dr. David Arias at [facility] dated 09/06 can be found in EPIC in ENCOUNTER tab? Outside records: 10/03/2011 documentation jesse laryngology ? progress notes?outside records document on 10/03/2011 by Modesta Weeks: Priscila Brasher H &P. pdf CXR dated 08/25/2011 reveals hiatal hernia. CMP and CBC dated 08/25/2011 EKG dated 10/03/2011 reveals NSR. Patient interview complete and pertinent updates documented under patient history. Patient received pre-op instructions per AVS and verbalized good understanding. Phone appoi ntment completed as scheduled. Transportation: with son Osorio Webster. Will provide telephone number on DOS. Son is accompa jan subject to hospital. Physical Exam General: Patients general appearance: Mild distress and Alert Head & Neck/Airway: Dentition: Dentures-upper, Dentures-lower and missing teeth Dental Risk Mallampati: II Mo uth Opening: > = 3 cm C-Spine: normal Neck Anatomy: Normal Jaw Protrusion: Normal, lower inc isors can protrude past upper incisors Lung Exam: breath sounds normal Cardiac: Rhythm: regular Rate: normal Abdominal: Musculoskeletal: Neuro/Psych: Integument: Implants: Comments: EKG NSR 10/14/2011 [facility] PreOp Note - Karla Gasca RN - 10/11/2011 9:21 AM PDT ROS Pulmonary: Oxygen use only at night right now; wheezing after Walking across the room With in Defined Limits except as noted below shortness of breath with exertion wheezing COPD sev ere (O2) sleep apnea Cardiovascular: Occasional heart palpitations with stress, Within Defined Limits except as noted below Functional Capacity: Low + dyspnea on exertion, palpitations and syncope CHF O THER CARDIAC SYMPTOMS: pulmonary htn. 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 F scheduled for ETHMOIDECTOMY WITH FUSION on 10/14/2011 at 11:00 AM by Oleksandr nieves MD at [facility] . Past medical hx is significant for COPD, Non Hodgkins Lymphoma and Hep B. Current H&P received from PCP, Dr. David Arias at [facility] dated 09/06 can be found in EPIC in ENCOUNTER tab? Outside records: 10/03/2011 documentation jesse laryngology ? progress notes?outside records document on 10/03/2011 by Modesta Weeks: Priscila Brasher H &P. pdf CXR dated 08/25/2011 reveals hiatal hernia. CMP and CBC dated 08/25/2011 EKG dated 10/03/2011 reveals NSR. Patient interview complete and pertinent updates documented under patient history. Patient received pre-op instructions per AVS and verbalized good understanding. Phone appoi ntment completed as scheduled. Transportation: with son Osorio Webster. Will provide telephone number on DOS. Son is accompvickie montoya subject to hospital. documented in this e ncounter Plan of Treatment Not on filedocumented as of this encounter Visit Diagnoses Not on filedocumented in this encounter Administered Medications + +--------+ +--------+------+------+ | Medication Order | MAR | Action | Dose | Rate | Site | | | Action | Date | | | | + +--------+ +--------+------+------+ | clindamycin (aka CLEOCIN) IV | Given | 10/14/19 | 600 mg | | | | intravenous, INTRAPROCEDURE PRN, | | 12 11:12 | | | | | Starting 10/14/11 at 1112, | | AM PDT | | | | | Until Fri10/14/11 at 1233 | | | | | | + +--------+ +--------+------+------+ +---+---+ | | | +---+---+ + +-------+ +------+---+---+ | dexamethasone (aka DECADRON) | Given | 10/14/19 | 8 mg | | | | injection intravenous, | | 12 11:09 | | | | | INTRAPROCEDURE PRN, Starting Mon | | AM PDT | | | | | 10/14/11 at 1109, Until 10/14/11 | | | | | | | at 1233 | | | | | | + +-------+ +------+---+---+ +---+---+ | | | +---+---+ + +-------+ +--------+---+---+ | fentaNYL citrate (PF) (aka | Given | 10/14/19 | 50 mcg | | | | SUBLIMAZE) injection | | 12 10:58 | | | | | INTRAPROCEDURE PRN, Starting Mon | | AM PDT | | | | | 10/14/11 at 1058, Until 10/14/11 | | | | | | | at 1233, sedation | | | | | | + +-------+ +--------+---+---+ +---+---+ | | | +---+---+ + + + +----+---+---+ | lactated ringers IV | given by | 10/14/19 | mL | | | | INTRAPROCEDURE CONTINUOUS PRN, | | 12 12:36 | | | | | Starting 10/14/11 at 1049, | anesthes | PM PDT | | | | | Until Fri10/14/11 at 1233 | iology | | | | | + + + +----+---+---+ +---------+ +----+---+---+ | New Bag | 10/14/19 | mL | | | | | 12 10:49 | | | | | | AM PDT | | | | +---------+ +----+---+---+ +---+---+ | | | +---+---+ + +-------+ +------+---+---+ | lidocaine (aka LTA) | Given | 10/14/19 | 4 mL | | | | INTRAPROCEDURE PRN, Starting Mon | | 12 11:02 | | | | | 10/14/11 at 1102, Until Fri10/14/11 | | AM PDT | | | | | at 1233 | | | | | | + +-------+ +------+---+---+ +---+---+ | | | +---+---+ + +-------+ +-------+---+---+ | lidocaine (aka XYLOCAINE MPF) | Given | 10/14/19 | 50 mg | | | | 20 mg/mL (2 %) injection | | 12 11:01 | | | | | INTRAPROCEDURE PRN, Starting Mon | | AM PDT | | | | | 10/14/11 at 1101, Until 10/14/11 | | | | | | | at 1233 | | | | | | + +-------+ +-------+---+---+ +---+---+ | | | +---+---+ + +-------+ +-------+---+---+ | metoclopramide (aka REGLAN) | Given | 10/14/19 | 10 mg | | | | injection intravenous, | | 12 11:09 | | | | | INTRAPROCEDURE PRN, Starting Mon | | AM PDT | | | | | 10/14/11 at 1109, Until 10/14/11 | | | | | | | at 1233, nausea/vomiting | | | | | | + +-------+ +-------+---+---+ +---+---+ | | | +---+---+ + +-------+ +------+---+---+ | midazolam (aka VERSED) | Given | 10/14/19 | 2 mg | | | | injection INTRAPROCEDURE PRN, | | 12 10:49 | | | | | Starting Fri10/14/11 at 1049, | | AM PDT | | | | | Until Fri10/14/11 at 1233, | | | | | | | sedation | | | | | | + +-------+ +------+---+---+ +---+---+ | | | +---+---+ + +-------+ +------+---+---+ | ondansetron (aka ZOFRAN) | Given | 10/14/19 | 4 mg | | | | injection INTRAPROCEDURE PRN, | | 12 12:16 | | | | | Starting Fri10/14/11 at 1216, | | PM PDT | | | | | Until Fri10/14/11 at 1233 | | | | | | + +-------+ +------+---+---+ +---+---+ | | | +---+---+ + +-------+ +--------+---+---+ | phenylePHrine 100 mcg/mL | Given | 10/14/19 | 50 mcg | | | | injection (OR syringe) | | 12 11:51 | | | | | intravenous, INTRAPROCEDURE PRN, | | AM PDT | | | | | Starting Fri10/14/11 at 1139, | | | | | | | Until Fri10/14/11 at 1233 | | | | | | + +-------+ +--------+---+---+ +-------+ +--------+---+---+ | Given | 10/14/19 | 50 mcg | | | | | 12 11:41 | | | | | | AM PDT | | | | +-------+ +--------+---+---+ | Given | 10/14/19 | 50 mcg | | | | | 12 11:39 | | | | | | AM PDT | | | | +-------+ +--------+---+---+ +---+---+ | | | +---+---+ + +-------+ +--------+---+---+ | propofol INTRAPROCEDURE PRN, | Given | 10/14/19 | 140 mg | | | | Starting 10/14/11 at 1101, | | 12 11:01 | | | | | Until 10/14/11 at 1233 | | AM PDT | | | | + +-------+ +--------+---+---+ +---+---+ | | | +---+---+ + +-------+ +--------+---+---+ | SUCCINYLCHOLINE CHLORIDE 20 | Given | 10/14/19 | 100 mg | | | | MG/ML INJ (PROSED/RSI) | | 12 11:02 | | | | | INTRAPROCEDURE PRN, Starting Mon | | AM PDT | | | | | 10/14/11 at 1102, Until 10/14/11 | | | | | | | at 1233, Neuromuscular block | | | | | | + +-------+ +--------+---+---+ +---+---+ | | | +---+---+ documented in this encounter"
--- OUTSIDE RECORDS SUMMARY | ~2019-12-11 | XMS | Encounter Summary ---
Demographics + + + | Address | [address] | | | [place] [address] | + + + | Home Phone | | + + + | Preferred Language | Unknown | + + + | Marital Status | Single | + + + | Church Affiliation | Unknown | + + + | Race | White | + + + | Ethnic Group | Not or | + + + Author + + + | Author | [facility] | | | and [place] | + + + | Organization | [facility] | | | and [...] Team Providers + +------+ + | Care Ocean Freight Manager Name | Role | Phone | + +------+ + | David Arias MD | PCP | | + +------+ + Encounter Details +--------+ + + + + | Date | Type | Department | Care Team | Description | +--------+ + + + + | 03/13/ | Imaging | [facility] | Provider, | | | 2018 | Exam | [facility] | [facility] [address] | | | | | IMAG[facility] [address] | | | | | [address] | [place] [address] | | | | | [place] [address] | | | | | | [phone] | | | +--------+ + + + [...] + +--------+ + + + | ECHO COMPLETE | Routin | 01/30/2018 | | Results for this | | | e | 8:20 AM | | procedure are in the | | | | PDT | | results section. | + +--------+ + + + documented in this encounter Results ECHO Complete (01/30/2018 8:20 AM PDT) + + | Specimen | + + | | + + + + + | Narrative | Performed At | + + + | External films for comparison only | [facility] | | | | | No results will be in the chart. | | + + + + +---------+ + + | Performing | Address | City/State/Zipcode | Phone Number | | Organization | | | | + +---------+ + + | [facility] | | | | + +---------+ + + documented in this encounter Visit Diagnoses Not on filedocumented in this encounter"
--- OUTSIDE RECORDS SUMMARY | ~2019-12-11 | XMS | Clinical Summary ---
Demographics + + + | Address | [address] | | | [place] [address] | + + + | Home Phone | | + + + | Preferred Language | Unknown | + + + | Marital Status | Single | + + + | Religion Affiliation | OTH | + + + | Race | White | + + + | Ethnic Group | Not or | + + + Author + + + | Author | NON REVENUE LOCATIONS | + + + | Organization | NON REVENUE LOCATIONS | + + + | Address | Unknown | + + + | Phone | Unavailable | + + + Support + + +---------+ + | Name | Relationship | Address | Phone | + + +---------+ + | Osorio Bourgeois | ECON | Unknown | Unavailable | + + +---------+ + Care Team Providers + +------+ + | Care Title Manager Name | Role | Phone | + +------+ + | David Arias MD | PCP | | + +------+ + Source Comments [facility] is fully live on both [facility] and [facility] Allergies + + + + + + | Active Allergy | Reactions | Severity | Noted | Comments | | | | | Date | | + + + + + + | Codeine | | | 09/26/19 | | | | | | 12 | | + + + + + + | Penicillins | Anaphylaxis | High | 09/26/19 | | | | | | 12 | | + + + + + + | Tetanus Vaccines And | | High | 10/11/19 | | | Toxoid | | | 12 | | + + + + + + Medications + + + +---------+------+------+-------+ | Medication | Sig | Dispensed | Refills | Star | End | Statu | | | | | | t | Date | s | | | | | | Date | | | + + + +---------+------+------+-------+ | DICLOFENAC | Take by mouth. | | 0 | | | Activ | | SODIUM/MISOPROSTOL | | | | | | e | | (ARTHROTEC 50 ORAL) | | | | | | | + + + +---------+------+------+-------+ | | Inhale 2 Puffs four | | 0 | | | Activ | | albuterol-ipratropiu | times daily as | | | | | e | | m (COMBIVENT) 18-103 | needed. | | | | | | | mcg/actuation | | | | | | | | Inhalation Aerosol, | | | | | | | | Horace | | | | | | | + + + +---------+------+------+-------+ | tiotropium | Inhale 18 mcg once | | 0 | | | Activ | | (SPIRIVA WITH | daily. | | | | | e | | HANDIHALER) 18 mcg | | | | | | | | Inhalation Capsule, | | | | | | | | w/Inhalation Device | | | | | | | + + + +---------+------+------+-------+ | fluticasone | Instill 2 Sprays | | 0 | | | Activ | | (FLONASE) 50 | into each nostril | | | | | e | | mcg/actuation Nasal | once daily. | | | | | | | Horace, Suspension | | | | | | | + + + +---------+------+------+-------+ | FOLIC | Take by mouth. | | 0 | | | Activ | | ACID/MV,FE,OTHER MIN | | | | | | e | | (CENTRUM ORAL) | | | | | | | + + + +---------+------+------+-------+ | methylPREDNISolone | Follow package | 1 | 0 | 06/2 | | Activ | | (MEDROL, UZIEL,) 4 mg | directions. Please | Package | | 04/26 | | e | | Oral Tablets, Dose | start the day after | | | 12 | | | | Pack | surgery. | | | | | | + + + +---------+------+------+-------+ | clarithromycin | Take 1 Tab by mouth | 14 Tab | 0 | 06/2 | | Activ | | (BIAXIN) 500 mg Oral | every twelve hours. | | | 20 | | e | | Tablet | Please start the day | | | 12 | | | | | after surgery. | | | | | | + + + +---------+------+------+-------+ | | Take 1-2 Tabs by | 30 Tab | 0 | 07/0 | | Activ | | HYDROcodone-acetamin | mouth every four | | | /20 | | e | | ophen (VICODIN) | hours as needed. Not | | | 12 | | | | 5-500 mg Oral Tablet | to exceed 6 tablets | | | | | | | | per any 24 hour | | | | | | | | period. (Not to | | | | | | | | exceed 3250 mg of | | | | | | | | acetaminophen from | | | | | | | | all products per 24 | | | | | | | | hour period.) | | | | | | + + + +---------+------+------+-------+ Active Problems + + + | Problem | Noted Date | + + + | Sinusitis | 10/14/2011 | + + + Family History + + +------+ + | Medical History | Relation | Name | Comments | + + +------+ + | Cancer | | | | + + +------+ + + +------+--------+ + | Relation | Name | Status | Comments | + +------+--------+ + Social History + +-------+ +--------+ + | [...] + + + | Blood Pressure | 137/86 | 10/14/2011 2:50 PM | | | | | PDT | | + + + + + | Pulse | 87 | 10/14/2011 2:50 PM | | | | | PDT | | + + + + + | Temperature | 36.7 C (98.1 F) | 10/14/2011 2:24 PM | | | | | PDT | | + + + + + | Respiratory Rate | 16 | 10/14/2011 2:50 PM | | | | | PDT | | + + + + + | Oxygen Saturation | 95% | 10/14/2011 2:50 PM | | | | | PDT | | + + + + + | Inhaled Oxygen | - | - | | | Concentration | | | | + + + + + | Weight | 64.9 kg (143 lb) | 10/14/2011 9:40 AM | | | | | PDT | | + + + + + | Height | 166.4 cm (5' 5.5") | 10/14/2011 9:40 AM | | | | | PDT | | + + + + + | Body Mass Index | 23.43 | 10/14/2011 9:40 AM | | | | | PDT | | + + + + + Plan of Treatment + + +-------+ + | Health Maintenance | Due Date | Last | Comments | | | | Done | | + + +-------+ + | Pneumococcal | | | | | vaccination (1 of 2 | 8 | | | | - PCV13) | | | | + + +-------+ + | Influenza (Flu) | | | | | vaccination (#1) | 9 | | | + + +-------+ + Results Not on filefrom Last 3 Months Insurance + +--------+ +--------+ + +--------+ | Payer | Benefi | Subscriber | Effect | Phone | Address | Type | | | t Plan | ID | juan manuel | | | | | | / | | Dates | | | | | | Group | | | | | | + +--------+ +--------+ + +--------+ | MEDICARE | MEDICA | [id number] | 07/07/19 | [phone] | [address] | Medica | | | RE A & | | 08-Pre | 1 | [address] | re | | | B | | sent | | [place] | | | | | | | | [address] | | + +--------+ +--------+ + +--------+ | HUMANA | HUMANA | [id number] | 04/07/19 | [phone] | [address] | PPO | | | | | 12-Pre | 2 | [address] | | | | CHOICE | | sent | | [place], | | | | CARE | | | | [place] | | | | | | | | [address] | | + +--------+ +--------+ + +--------+ + +--------+ +--------+ + + | Guarantor Name | Accoun | Relation to | Date | Phone | Billing Address | | | t Type | Patient | of | | | | | | | | | | + +--------+ +--------+ + + | Priscila Brasher | Person | Self [birth year] | | | al/Fam | | 1941 | [phone] | [place] [address] | | | jb | | | 8 (Home) | | + +--------+ +--------+ + + Advance Directives + + + + + | Code Status | Date | Date | Comments | | | Activated | Inactivated | | + + + + + | Full Code | 10/14/2011 | 10/14/2011 | | | | 9:32 AM | 9:27 PM | | + + + + +
--- OUTSIDE RECORDS SUMMARY | ~2019-12-11 | XMS | Encounter Summary ---
Demographics + + + | Address | [address] | | | [place] [address] | + + + | Home Phone | | + + + | Preferred Language | Unknown | + + + | Marital Status | Single | + + + | Episcopal Affiliation | Unknown | + + + [...] Team Providers + +------+ + | Care Housekeeping Staff Name | Role | Phone | + +------+ + | David Arias MD | PCP | | + +------+ + Encounter Details +--------+ + + + + | Date | Type | Department | Care Team | Description | +--------+ + + + + | 03/09/ | Hospital | [facility] | Oleksandr Hyde, | COPD | | 2015 | Encounter | MED CTR PULMONARY | MD [address] | | | | | [address] | [place], [place] | | | | | [place], | [address] | | | | | [place] [address] | | | | | | [phone] | | | +--------+ + + + [...] | | + +---+---+---+ + + | Comments: quit in 1989 | + + + + +---------+ + [...] + + documented as of this encounter Medications at Time of Discharge [...] by | 360 mL | 11 | 03/09/ | | | albuterol-ipratropiu | nebulization every 4 | | | 15 | 8 | | m (DUONEB) 2.5-0.5 | hours as needed | | | | | | mg/3 mL SOLN | (shortness of | | | | | | | breath). | | | | | + + + +---------+ + + | amitriptyline | Take 25 mg by mouth | | 0 | | | | (ELAVIL) 25 mg | nightly. | | | | 6 | | tablet | | | | | | + + + +---------+ + + | clopidogrel | Take 75 mg by mouth | | 0 | | | | (PLAVIX) 75 mg | Daily. | | | | 6 | | tablet | | | | | | + + + +---------+ + + | Cranberry-Vitamin | Take 2 capsules by | | 0 | | | | C-Probiotic (AZO | mouth Daily. | | | | 6 | | CRANBERRY PO) | | | | | | + + + +---------+ + + | cyclobenzaprine | Take 5 mg by mouth 3 | | 0 | | | | (FLEXERIL) 5 MG | times daily as | | | | 6 | | tablet | needed. | | | | | + + [...] + + + +---------+ + + | Fluticasone | once daily | | 0 | 01/13/20 | | | Propionate (FLONASE | | | | 12 | 7 | | NA) | | | | | | + + + +---------+ + + | metoclopramide | Take 10 mg by mouth | | 0 | | | | (REGLAN) 10 mg | 4 times daily as | | | | 7 | | tablet | needed. | | | | | + + [...] + + + +---------+ + + | misoprostol | Take 200 mcg by | | 0 | | | | (CYTOTEC) 200 MCG | mouth Daily. | | | | 6 | | tablet | | | | | | + + + +---------+ + + | naproxen | Take 500 mg by mouth | | 0 | | | | (NAPROSYN) 500 mg | Twice daily as | | | | 6 | | tablet | needed. | | | | | + + + +---------+ + + | nitroglycerin | Place 0.4 mg under | | 0 | | | | (NITROSTAT) 0.4 mg | the tongue as needed | | | | 9 | | SL tablet | for Chest pain. | | | | | + + + +---------+ + + | SUMAtriptan | Take 100 mg by mouth | | 0 | | | | (IMITREX) 100 mg | as needed. | | | | 6 | | tablet | | | | | | + + + +---------+ + + | topiramate | Take 100 mg by mouth | | 0 | | | | (TOPAMAX) 100 mg | Daily. | | | | 7 | | tablet | | | | | | + + + +---------+ + + documented as of this encounter Plan of Treatment Not on filedocumented as of this encounter Procedures + +--------+ + + + | Procedure Name | Priori | Date/Time | Associated Diagnosis | Comments | | | ty | | | | + +--------+ + + + | PFT PULMONARY | [facility] | 03/09/2015 | COPD | | | FUNCTION TESTING | | 9:36 AM | | | | ORDERS | | PST | | | + +--------+ + + + | DIAGNOSTIC REPORT - | | 03/09/2015 | | | | EXTERNAL SCAN | | 12:00 AM | | | | | | PST | | | + +--------+ + + + documented in this encounter Visit Diagnoses + + | Diagnosis | + + | COPD Chronic airway obstruction, not elsewhere classified | + + documented in this encounter"
--- OUTSIDE RECORDS SUMMARY | ~2019-12-11 | XMS | Encounter Summary ---
Demographics + + + | Address | [address] | | | [place] [address] | + + + | Home Phone | | + + + | Preferred Language | Unknown | + + + | Marital Status | Single | + + + | Jewish Affiliation | Unknown | + + + [...] Team Providers + +------+ + | Care Toll Collector Supervisor Name | Role | Phone | + +------+ + | David Arias MD | PCP | | + +------+ + Encounter Details +--------+ + + + + | Date | Type | Department | Care Team | Description | +--------+ + + + + | 06/11/ | Hospital | [facility] | Oleksandr Hyde, | | | 2013 | Encounter | MED CTR GENERIC OP | MD [address] | | | | | CONV DEPT [address] | [place], [place] | | | | | [place], | [address] | | | | | [place] [address] | | | | | | [phone] | | | +--------+ + + + + Social History + + + +--------+------+ | Tobacco Use | Types | Packs/Day | Years | Date | | | | | Used | | + + + +--------+------+ | Former Smoker | Cigarettes | 4 | 45 | | + + + +--------+------+ + + | Comments: quit in 1989 | + + + + +---------+ + | Alcohol Use | Drinks/Week | oz/Week | Comments | + + +---------+ + | No | | | | + + +---------+ + [...] + + +---------+ + + | | Inhale 2 puffs into | 1 | 11 | 06/17/19 | | | albuterol-ipratropiu | the lungs every 4 | Inhaler | | 13 | 4 | | m (COMBIVENT) 103-18 | hours as needed for | | | | | | mcg/puff | Wheezing. | | | | | | inhalerIndications: | | | | | | | COPD (chronic | | | | | | | obstructive | | | | | | | pulmonary disease) | | | | | | | ([facility]) | | | | | | + [...] | | 0 | | | | (CATAFLAM) 50 MG | 3 times daily. | | | | 4 | | tablet | | | | | | + + + +---------+ + + | diclofenac | Take 75 mg by mouth | | 0 | 09/30/19 | | | (VOLTAREN) 75 mg EC | Daily. | | | 13 | 8 | | tablet | | | | | | + + + +---------+ + + | | Take by mouth 2 | | 0 | 12/19/19 | | | diclofenac-misoprost | times daily. | | | 12 | 4 | | ol (ARTHROTEC 75) | | | | | | | 75-0.2 mg per tablet | | | | | | [...] +---------+ + + | metoprolol | Take 25 mg by mouth | | 0 | 11/22/19 | | | succinate | Daily. | | | 13 | 4 | | (TOPROL-XL) 25 mg 24 | [...] + + + +---------+ + + | warfarin | | | 0 | 06/04/19 | | | (COUMADIN) 2.5 mg | | | | 14 | 5 | | tablet | | | | | | + + + +---------+ + + | warfarin | | | 0 | 06/04/19 | | | (COUMADIN) 5 mg | | | | 14 | 5 | | tablet | | | | | | + + + +---------+ + + documented as of this encounter Plan of Treatment Not on filedocumented as of this encounter Visit Diagnoses Not on filedocumented in this encounter"
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
--- OUTSIDE RECORDS SUMMARY | ~2019-12-11 | XMS | Encounter Summary ---
Demographics + + + | Address | [address] | | | [place] [address] | + + + | Home Phone | | + + + | Preferred Language | Unknown | + + + | Marital Status | Single | + + + | Gnosticist Affiliation | Unknown | + + + | Race | White | + + + | Ethnic Group | Not or | + + + Author + + + | Author | [facility] | | | and [place] | + + + | Organization | [facility] | | | [...] Team Providers + +------+ + | Care Appeals Writer Name | Role | Phone | + +------+ + | David Arias MD | PCP | | + +------+ + Reason for Visit + +--------+ + | Reason | Onset | Comments | | | Date | | + +--------+ + | Medication Refill | 06/23/ | | | | 2019 | | + +--------+ + Encounter Details +--------+--------+ + + + | Date | Type | Department | Care Team | Description | +--------+--------+ + + + | 06/23/ | Refill | [facility] | Oleksandr Hyde, | Medication Refill | | 2020 | | [address]ULMONARY [address] | MD [address] | | | | | [place], | [place], [place] | | | | | [place] [address] | [id number] | | | | | [phone] | | | +--------+--------+ + + + Social History + + [...] + | Diagnosis | + + | Chronic obstructive pulmonary disease, unspecified COPD type (HCC) | + + | Centrilobular emphysema (HCC) | + + documented in this encounter"
--- OUTSIDE RECORDS SUMMARY | ~2019-12-11 | XMS | Encounter Summary ---
Demographics + + + | Address | [address] | | | [place] [address] | + + + | Home Phone | | + + + | Preferred Language | Unknown | + + + | Marital Status | Single | + + + | Methodist Affiliation | Unknown | + + + | Race | White | + + + | Ethnic Group | Not or | + + + Author + + + | Author | [facility] | | | and [place] | + + + | Organization | [facility] | | | and [...] Team Providers + +------+ + | Care Dean Of Education Name | Role | Phone | + +------+ + | David Arias MD | PCP | | + +------+ + Reason for Visit + + + | Reason | Comments | + + + | Follow-up | | + + + Encounter Details +--------+---------+ + + + | Date | Type | Department | Care Team | Description | +--------+---------+ + + + | 12/10/ | Office | [facility] [place] | Oleksandr Hyde, | Emphysema (Primary | | 2012 | Visit | [address]ULMONARY [address] | MD [address] | Dx); COPD; | | | | [place], | [place], [place] | Hypoxemia; Need for | | | | [place] [address] | [address] | pneumococcal | | | | [phone] | | vaccination | +--------+---------+ + + + Social History [...] + + + | Blood Pressure | 122/68 | 12/10/2012 9:24 AM | | | | | PDT | | + + + + + | Pulse | 85 | 12/10/2012 9:24 AM | | | | | PDT | | + + + + + | Temperature | - | - | | + + + + + | Respiratory Rate | - | - | | + + + + + | Oxygen Saturation | 98% | 12/10/2012 9:24 AM | | | | | PDT | | + + + + + | Inhaled Oxygen | - | - | | | Concentration | | | | + + + + + | Weight | 69.4 kg (153 lb) | 12/10/2012 9:24 AM | | | | | PDT | | + + + + + | Height | 164.5 cm (5' 4.75") | 12/10/2012 9:24 AM | | | | | PDT | | + + + + + | Body Mass Index | 25.66 | 12/10/2012 9:24 AM | | | | | PDT | | + + + + + documented in this encounter Patient Instructions Patient Instructions Oleksandr Hyde MD - 12/10/2012 9:48 AM PDTRestart Advair if possi ble. Flu shot in January. Check to see when last chest xray was performed. Call if greater than one year. documented in this encounter Progress Notes Oleksandr Hyde MD - 12/10/2012 9:34 AM PDTFormatting of this note might be different f rom the original. Pulmonary Follow Up 12/10/2012 HPI Priscila Brasher is a 72 y.o. female patient of David Arias here today for follow u p of COPD. Last visit was in 06/16/12. Since their last visit she feels like she has been doing worse . Chest heaviness and burning with exertion. Planning to speak to Dr. Arias. They have not had any acute illnesses. They are currently on a regimen of Combivent 4 times per day. Since her last clinic appointment Priscila has discontinued Advair. Specifically Advair was too expensive to continue at this time. Rather she is increased her use of Combivent. They do feel like this medication regimen is working for them. They return today for routine foll ow up. Currently they are using their rescue inhaler, Combivent, 4-5 times a day. Currently they are able to walk 50 yards at their own pace on level ground. They are exerci sing regularly. They are enrolled in cardiac/pulmonary rehabilitation or other physical therapist apy. Walking one mile 3 times per week. They have not completed pulmonary rehabilitation in the past. She does cough chronically, and does produce mucous. Sputum for the last three months. The mucous is green in color. They have not had hemoptysis. She has been evaluated for nocturnal oxygen and does use it. They are currently on 2 LPM at night. They report good compliance. They have been evaluated for daytime oxygen and do not it need it. She does not had symptoms of heartburn or reflux. They have not had symptoms of nasal conge stion, runny nose or post nasal drip. The patient believes that she has had a chest x-ray in the last 12 months. Past Medical History Past Medical History Diagnosis Date Pulmonary embolus 2009 after surgery Reflux Non Hodgkin's lymphoma 2008 no recurrence, seen by Dr. Gonzalez annually Arthritis Fatigue Hiatal hernia Sleep apnea No CPAP. O2 at night. COLINDRES (dyspnea on exertion) Pneumonia last episode 1990 Emphysema Normal FEV1 and extensive on CT scan Hypoxemia Osteoporosis Depression Hepatitis B infection 1969' Rheumatic fever 1948 enlarged heart and murmur for a while Valvular heart disease Polio 1952 Social History: She reports that she has quit smoking. Her smoking use included Cigarettes. She has a 180 p ack-year smoking history. She does not have any smokeless tobacco history on file. She repor ts that she does not drink alcohol. Allergies: Allergies Allergen Reactions Codeine Sulfate Penicillins Tetanus Toxoids Medications: Current outpatient prescriptions:albuterol-ipratropium (COMBIVENT) 103-18 mcg/puff inhaler, Active, Inhale 2 puffs into the lungs every 4 hours as needed for Wheezing., Disp: 1 Inhale r, Rfl: 11; amitriptyline (ELAVIL) 25 mg tablet, Active, Take 25 mg by mouth nightly., Disp : , Rfl: ; cyclobenzaprine (FLEXERIL) 5 MG tablet, Active, Take 5 mg by mouth 3 times daily as needed., Disp: , Rfl: dexamethasone (DECADRON) 2 MG tablet, Active, Take 2 mg by mouth 2 times daily (with breakf ast & dinner)., Disp: , Rfl: ; diclofenac (CATAFLAM) 50 MG tablet, Active, Take 75 mg by mo uth 3 times daily., Disp: , Rfl: ; diclofenac (VOLTAREN) 75 mg EC tablet, Active, , Disp: , Rfl: ; diclofenac-misoprostol (ARTHROTEC 75) 75-0.2 mg per tablet, Active, Take by mouth 2 times daily., Disp: , Rfl: Fluticasone Propionate (FLONASE NA), Active, once daily, Disp: , Rfl: ; metoclopramide (RE GLAN) 10 mg tablet, Active, Take 10 mg by mouth 4 times daily (before meals and nightly)., D isp: , Rfl: ; metoprolol succinate (TOPROL-XL) 25 mg 24 hr tablet, Active, , Disp: , Rfl: ; misoprostol (CYTOTEC) 200 MCG tablet, Active, Take 200 mcg by mouth Daily., Disp: , Rfl: naproxen (NAPROSYN) 500 mg tablet, Active, Take 500 mg by mouth 2 times daily (with breakfa st & dinner)., Disp: , Rfl: ; SUMAtriptan (IMITREX) 100 mg tablet, Active, Take 100 mg by m outh as needed., Disp: , Rfl: Review of Systems Constitutional: Denies fever, chills, sweats, fatigue/weakness, and unexpected weight manley ge. Sleep: Denies trouble sleeping, excessive snoring, and daytime sleepiness. Eyes: Denies vision change, and eye irritation. ENT: Denies earache, tinnitus, decreased hearing, nosebleeds, sore throat, and hoarseness. Resp: See HPI. CV: Denies neck/chest/jaw pain with exertion, palpitations, lightheadedness, syncope, dysp tres on exertion, orthopnea, PND, peripheral edema, and claudication. GI: Denies trouble swallowing, nausea, vomiting, abdominal pain, diarrhea, constipation,m radha, and hematochezia. Neurologic: Denies frequent headaches, seizures, tremors, numbness or tingling in hands or feet, vertigo, and fall or difficulty walking in past 6 months. Allergy Denies urticaria, allergic rash, hay fever. Objective BP 122/68 | Pulse 85 | Ht 1.645 m (5' 4.75") | Wt 69.4 kg (153 lb) | BMI 25.66 kg/m2 | SpO2 98% Appearance: Alert, cooperative, no distress, appears stated age Head: Normocephalic, without obvious abnormality, atraumatic Eyes: PERRL, conjunctiva/corneas clear Nose: Nares normal, septum midline, mucosa normal, no drainage or sinus tenderness Throat: Lips, mucosa, and tongue normal; teeth/dentures normal Neck: Supple, symmetrical, no JVD Lungs: No accessory muscle use, breath sounds are clear to auscultation bilaterally, no w heezes, crackles or rhonchi. No dullness to percussion. Chest Wall: No tenderness or deformity Heart: Regular rate and rhythm, S1, S2 normal, no murmur, rub or gallop Extremities: Extremities normal, atraumatic, no cyanosis, clubbing, or edema Skin: Warm and dry Lymph nodes: Cervical and supraclavicular nodes normal Neurologic: Gait normal Assessment 1. Michelle is a 72-year-old female with radiographic evidence of advanced emphys dora. Since her last clinic appointment the patient has discontinued Advair secondary to fin ancial constraints. She is using Combivent frequently. Though Priscila is not participating in pulmonary rehab she is actively exercising. 2. Hypoxemia-patient wears supplemental oxygen at night while sleeping. No evidence of de saturation today. 3. Worsening cough-at increased risk for bronchogenic carcinoma. Patient believes that valerie oakley's had a chest x-ray in the last 12 months. I've asked Priscila to confirm this point. Plan 1. Pneumovax today. 2. Seasonal influenza vaccination January 2013. 3. Contact our office if no recent chest x-ray has been performed. 4. Pulmonary clinic followup in 6 months time. 5. Reinitiate Advair when possible. CC: David Arias documented in this encounter Plan of Treatment + + +--------+ + + | Name | Type | Priori | Associated Diagnoses | Order Schedule | | | | ty | | | + + +--------+ + + | Pulse oximetry | Respiratory | Routin | COPD Hypoxemia | Expected: | | titation | Care | e | | 12/10/2012, Expires: | | | | | | 12/10/2013 | + + +--------+ + + documented as of this encounter Visit Diagnoses + + | Diagnosis | + + | Emphysema - Primary Other emphysema | + + | COPD Chronic airway obstruction, not elsewhere classified | + + | Hypoxemia | + + | Need for pneumococcal vaccination Need for prophylactic vaccination against | | streptococcus pneumoniae (pneumococcus) | + + documented in this encounter
--- OUTSIDE RECORDS SUMMARY | ~2019-12-11 | XMS | Encounter Summary ---
Demographics + + + | Address | [address] | | | [place] [address] | + + + | Home Phone | | + + + | Preferred Language | Unknown | + + + | Marital Status | Single | + + + | Gnosticism Affiliation | Unknown | + + + | Race | White | + + + | Ethnic Group | Not or | + + + Author + + + | Author | [facility] | | | and [place] | + + + | Organization | [facility] | | | [...] Team Providers + +------+ + | Care Auto Painter Name | Role | Phone | + +------+ + | David Arias MD | PCP | | + +------+ + Reason for Visit + + + | Reason | Comments | + + + | Follow-up | bronchitis , patient feeling weak and tired | + + + Encounter Details +--------+---------+ + + + | Date | Type | Department | Care Team | Description | +--------+---------+ + + + | 11/30/ | Office | [facility] | Oleksandr Hyde, | Chronic obstructive | | 2015 | Visit | PULMONARY [address] | pulmonary disease, | | | | [place], | [place], [place] | unspecified COPD | | | | [place] [address] | [id number] | type (HCC) (Primary | | | | [phone] | | Dx); Hypoxemia; | | | | | | Centrilobular | | | | | | emphysema (HCC) | +--------+---------+ + + + Social History [...] + + + | Blood Pressure | 120/60 | 12/01/2015 3:21 PM | | | | | PDT | | + + + + + | Pulse | 88 | 12/01/2015 3:21 PM | | | | | PDT | | + + + + + | Temperature | 36.9 C (98.5 F) | 12/01/2015 3:21 PM | | | | | PDT | | + + + + + | Respiratory Rate | 20 | 12/01/2015 3:21 PM | | | | | PDT | | + + + + + | Oxygen Saturation | 94% | 12/01/2015 3:21 PM | | | | | PDT | | + + + + + | Inhaled Oxygen | - | - | | | Concentration | | | | + + + + + | Weight | 67.1 kg (148 lb) | 12/01/2015 3:21 PM | | | | | PDT | | + + + + + | Height | 162.6 cm (5' 4") | 12/01/2015 3:21 PM | | | | | PDT | | + + + + + | Body Mass Index | 25.4 | 12/01/2015 3:21 PM | | | | | PDT | | + + + + + documented in this encounter Patient Instructions Patient Instructions Oleksandr Hyde MD - 12/01/2015 3:59 PM PDT COPD Flare You have had a flare-up of your COPD. COPD, or chronic obstructive pulmonary disease, is a common lung disease. It causes your ai rways to become irritated and narrower. This makes it harder for you to breathe. Emphysema a nd chronic bronchitis are both types of COPD. This is a chronic condition, which means you a lways have it. Sometimes it gets worse. When this happens, it is called a flare-up. Symptoms of COPD People with COPD may have symptoms most of the time. In a flare-up, your symptoms get worse . These symptoms may mean you are having a flare-up: Shortness of breath, shallow or rapid breathing, or wheezing that gets worse Lung infection Cough that gets worse More mucus, thicker mucus or mucus of a different color Tiredness, decreased energy, or trouble doing your usual activities Fever Chest tightness Your symptoms don t get better even when you use your usual medicines, inhalers, and n ebulizer Trouble talking You feel confused Causes of flare-ups Unfortunately, a flare-up can happen even though you did everything right, and you followed your doctor s instructions. Some causes of flare-ups are: Smoking or secondhand smoke Colds, the flu, or respiratory infections Air pollution Sudden change in the weather Dust, irritating chemicals, or strong fumes Not taking your medicines as prescribed Home care Here are some things you can do at home to treat a flare-up: Try not to panic. This makes it harder to breathe, and keeps you from doing the right th ings. Don t smoke or be around others who are smoking. Try to drink more fluids than usual during a flare-up, unless your doctor has told you n ot to because of heart and kidney problems. More fluids can help loosen the mucus. Use your inhalers and nebulizer, if you have one, as you have been told to. If you were given antibiotics, take them until they are used up or your doctor tells you to stop. It s important to finish the antibiotics, even though you feel better. This will make sure the infection has cleared. If you were given prednisone or another steroid, finish it even if you feel better. Preventing a flare-up Even though flare-ups happen, the best way to treat one is to prevent it before it starts. Here are some pointers: Don t smoke or be around others who are smoking. Take your medicines as you have been told. Talk with your doctor about getting a flu shot every year. Also find out if you need a p neumonia shot. If there is a weather advisory warning to stay indoors, try to stay inside when possible . Try to eat healthy and get plenty of sleep. Try to avoid things that usually set you off, like dust, chemical fumes, hairsprays, or strong perfumes. Follow-up care Follow up with your healthcare provider. If a culture was done, you will be told if your treatment needs to be changed. You can call as directedfor the results. If X-rays were done, and a radiologist had not seen them while you were there, they will be reviewed. You will be told if there is a change in the reading, especially if it affects yo ur treatment. Call 911 Call 911 if any of these occur: You have trouble breathing You feel confused or it s difficult to wake you up You faint or lose consciousness You have a rapid heart rate You have new pain in your chest, arm, shoulder, neck or upper back When to seek medical advice Call your healthcare provider right awayifany of these occur: Wheezing or shortness of breath gets worse You need to use your inhalers more often than usual without relief Fever of 100.4F(38C) or higher, or as directed Coughing up lots of dark-colored or bloody sputum (mucus) Chest pain with each breath You do not start to get better within 24 hours Swelling or your ankles gets worse Dizziness or weakness [id number] [employer]. [address] [place] [address]. All righ ts reserved. This information is not intended as a substitute for professional medical care. Always follow your healthcare professional's instructions. High dose FluVaccine in January 2016 The flu (influenza) is caused by a virus that is easily spread. A fluvaccine protects you and othersfrom the flu. It s best to get a flu shot each fall, as soon as the vaccine i s available in your area. You can get it at your health care provider s office or a health clinic. Drugstores, senior centers, and workplaces often offer flu shots, too. If you want to know if your providerhas the flu vaccine available, or if you have other questions, ask your healthcare provider. Flu facts The flu shot will not give you the flu. The flu can be dangerous even life-threatening. Every year, about 36,000 people of complications from the flu. The flu is caused by a virus. It can t be treated with antibiotics. Influenza is not the same as stomach flu, the 24-hour bug that causes vomiting and diarrhea. This is most likely due to a GI (gastrointestinal) infection not the flu. You need to get a flu shot each year. Flu symptoms Flu symptoms tend to come on quickly. Fever, headache, fatigue, cough, sore throat, runny n ose, and muscle aches are symptoms of the flu. Upset stomach and vomiting are not common for adults. Some symptoms, such as fatigue and cough, may last a few weeks. How a flu shot protects you There are many strains (types) of theflu virus. Medical experts predict which strains are most likely to make people sick each year. Flu shots are made from these strains. When you get a flu vaccine, inactivated ( killed ) or very mild flu viruses are injected into you r body or sprayed into your nose. These cannot give you the flu. But they do prompt your bod y to make antibodies to fight these flu strains. If you re exposed to the same strains lat er in the flu season, the antibodies will fight off the germs. Recommendations for the flu vaccine The CDC recommends that infants over the age of 6 months and all children and adults should get flu shots every year. Some people are at an increased risk of developing serious complications from the flu. It i s extremely important that these people get the vaccine. They include those with: Long-term heart and lung conditions Other serious medical conditions Endocrine disorders, like diabetes Kidney or liver disorders Weakened immune systems from disease of medical treatment; for example, those with HIV o r AIDS or taking long-term steroids or medications to treat cancer Blood disorders, such as sickle cell disease It is also very important that others that have an increased risk of being exposed to the f paul or are around people with increased risk of complications get the vaccine. They are: Health care providers and other staff that provide care in hospitals, nursing homes, psychiatric hospital, and other facilities Household members, including children, of people in high-risk groups Types of flu vaccines The flu vaccine is available as a shot and as a nasal spray. Your health care provider will determine which vaccine is right for you. The shot is available in a few different forms. There is a high-dose vaccine for those o alexandra 65 and a vaccine for those with egg allergies. It is safe for most people. Talk with you r provider if you have had: A severe allergic reaction to a previous flu vaccine Guillain-Etters syndrome (a severe paralyzing condition) The nasal spray is recommended for people from 2 to 49 years old. It should not be given to adults who: Are Have weakened immune systems Have egg allergies Will be in close contact with someone with a weakened immune system Have taken antiviral medication in the past 2 days [id number] [employer]. [address] [place] [address], [place] [id number]. All rig ts reserved. This information is not intended as a substitute for professional medical care. Always follow your healthcare professional's instructions. documented in this encounter Progress Notes Oleksandr Hyde MD - 12/01/2015 3:43 PM PDTFormatting of this note might be different f rom the original. Pulmonary Follow Up 12/01/2015 HPI Priscila Brasher is a 75 y.o. female patient of David Arias MD here today for foll ow up of apparent COPD/emphysema (no prior pulmonary function tests). The last pulmonary clinic visit was on 03/09/15. Since their last appointment they feel lik e their breathing issues have been stable. They have had one acute pulmonary illnesses. The patient has required a prednisone taper since our last clinic appointment. Likewise Didi Brasher has not required antibiotics for a COPD exacerbation since our last clinic appo intment. Specifically approximately a month ago the patient developed bronchitis like sympt oms and was initially evaluated in an ambulatory setting. She was prescribed budesonide but there were some challenges obtaining the medication. She ultimately presented to the emerg ency department and hospitalization was suggested. She refused hospitalization and ultimate ly was treated with nebulized budesonide and a prednisone taper. Slowly her symptoms improv ed. They are currently on a daily regimen of prn Duoneb for their COPD. They do feel like this medication regimen is controlling their symptoms. They are using their Duoneb nebulizer, 2 -3 times a day. Currently the patient is able to walk several blocks at their own pace on level ground befo re developing dyspnea. They are not exercising regularly. They are not enrolled in cardiac/ pulmonary rehabilitation. They have not completed pulmonary rehabilitation in the past. The patient does not cough chronically, and does not produce mucous.They have not had hemop tysis since our last appointment. She has been evaluated for nocturnal oxygen. They currently are using nocturnal oxygen. T luis are currently on 2 LPM at night while sleeping. They report excellent compliance. They h ave been evaluated for daytime oxygen and do not use it. They have not reported recent symptoms of nasal congestion, runny nose or post nasal drip. The patient have received this year's influenza vaccination. They are up to date with thei r Pneumovax and Prevnar 13. The patient is occasionally noting substernal chest pain with exertion. 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 Past Medical History Past Medical History Diagnosis Date Pulmonary embolus (HCC) 2009 after surgery Reflux Non Hodgkin's lymphoma (HCC) 2008 no recurrence, seen by Dr. Gonzalez annually Arthritis Fatigue Hiatal hernia Sleep apnea No CPAP. O2 at night. COLINDRES (dyspnea on exertion) Pneumonia Episodes 1990 and 2013 Emphysema Normal FEV1 and extensive on CT scan Hypoxemia Osteoporosis Depression Hepatitis B infection Rheumatic fever 1947 enlarged heart and murmur for a while Valvular heart disease Polio 1952 Acute [place] (HCC) 12/15/13 4 stents placed Social History: She reports that she quit smoking about 26 years ago. Her smoking use included Cigarettes. She has a 180 pack-year smoking history. She has never used smokeless tobacco. She reports t hat she does not drink alcohol or use illicit drugs. Allergies: Allergies Allergen Reactions Penicillins Anaphylaxis Codeine Sulfate Nausea And Vomiting Tetanus Toxoids Hives Medications: Current outpatient prescriptions: albuterol-ipratropium (DUONEB) 2.5-0.5 mg/3 mL SOLN, Take 3 mLs by nebulization every 4 hours as needed (shortness of breath)., Disp: 360 mL, Rfl: 11 diclofenac (VOLTAREN) 75 mg EC tablet, Take 75 mg by mouth Daily., Disp: , Rfl: fish oil 1,000 mg capsule, Take 2,000 mg by mouth Daily., Disp: , Rfl: Fluticasone Propionate (FLONASE NA), once daily, Disp: , Rfl: metoclopramide (REGLAN) 10 mg tablet, Take 10 mg by mouth 4 times daily as needed., Di sp: , Rfl: metoprolol succinate (TOPROL-XL) 25 mg 24 hr tablet, Take 1.5 tablets by mouth Daily., Disp: 45 tablet, Rfl: 6 nitroglycerin (NITROSTAT) 0.4 mg SL tablet, Place 0.4 mg under the tongue as needed fo r Chest pain., Disp: , Rfl: oxygen, Inhale 2 L into the lungs nightly., Disp: , Rfl: topiramate (TOPAMAX) 100 mg tablet, Take 100 mg by mouth Daily., Disp: , Rfl: Immunizations: Immunization History Administered Date(s) Administered INFLUENZA, HIGH DOSE SEASONAL (ADULT) 01/19/2015 INFLUENZA, TRIVALENT PRESERVATIVE FREE (PED/ADOL/ADULT) 01/20/2012, 01/19/2013, 014 INFLUENZA, UNSPECIFIED FORMULATION 01/19/2014 PNEUMOCOCCAL CONJUGATE 13-VALENT (PCV13) 08/19/2014 PNEUMOCOCCAL POLYSACCHARIDE 23-VALENT (PPSV23) 04/07/1996, 12/10/2012 TDAP, (ADOL/ADULT) 06/16/2010 ZOSTER, 1 DOSE (ADULT) 06/16/2009 Review of Systems Constitutional: Denies fever, chills, sweats and unexpected weight change. Sleep: Denies trouble sleeping, excessive snoring, and daytime sleepiness. Eyes: Denies vision change and eye irritation. ENT: Denies earache, nosebleeds, sore throat, and hoarseness. Resp: See HPI. CV: Denies neck/chest/jaw pain with exertion, palpitations, lightheadedness, syncope, orth opnea, PND and claudication. GI: Denies nausea, vomiting, abdominal pain, diarrhea,melena, and hematochezia. Neurologic: Denies frequent headaches, seizures, numbness or tingling in hands or feet, alexandra tigo, and falls. Allergy Denies urticaria and allergic rash. Objective BP 120/60 mmHg | Pulse 88 | Temp(Src) 36.9 C (98.5 F) | Resp 20 | Ht 1.626 m (5' 4") | Wt 67.132 kg (148 lb) | BMI 25.39 kg/m2 | SpO2 94% Appearance: Alert, cooperative, no distress, appears stated age. Head: Normocephalic, without obvious abnormality, atraumatic. Eyes: PERRL, conjunctiva/corneas clear. Nose: Nares normal, septum midline, mucosa normal, no drainage or sinus tenderness. Throat: Oral mucosa and tongue are normal. No thrush. Neck: Supple, no JVD Lungs: No accessory muscle use, breath sounds are clear to auscultation bilaterally. No wheezes. No crackles or rhonchi. No dullness to percussion. Chest Wall: No tenderness or deformity. Heart: Regular rate and rhythm. S1, S2 normal. No murmur, rubs or gallops. Extremities: Extremities normal/atraumatic. No cyanosis, clubbing. no edema. Skin: Warm and dry. Lymph nodes: No significant cervical and supraclavicular nodes. Neurologic: Gait normal. No apparent weakness. Data: None Assessment 1. Apparent COPD/emphysema patient's diagnosis of obstructive lung disease is based on a chest x-ray from November 2013. To my knowledge Priscila has not previously had pulmonary fun ction testing. The patient's medication regimen consists of as needed DuoNeb. She does not use other medi cation secondary to expense. Priscila notes symptoms consistent with a COPD exacerbation approximately a month ago. She was ultimately treated with nebulized budesonide and a prednisone taper. Her symptoms are s lowly returning to baseline. 2. Hypoxemia patient wears supplemental oxygen at night while she sleeps but not during the day with exertion. Priscila does not wish to use supplemental oxygen with exertion at th is time. The patient is up-to-date with respect to her Prevnar, Pneumovax and seasonal influenza vac cinations. Plan 1. Continue with as needed DuoNeb. 2. Regular scheduled exercise was strongly encouraged. 3. The interval between clinic clinic follow-up appointments will remain in 6 months. 4. Pre-and postbronchodilator spirometry with follow-up. 5. High-dose seasonal influenza vaccination January 2016. CC: David Arias MD documented in this encounter Plan of Treatment Not on filedocumented as of this encounter Results Pulmonary function test (05/28/2016 2:58 PM PST) + + + | Narrative | Performed At | + + + | Oleksandr | | | MD Barrett 05/28/2016 14:58 PULMONARY FUNCTION TESTING | | | SPIROMETRY: The prebronchodilator FVC was 2.91 L or 99 % of predicted. | | | The prebronchodilator FEV1 was 1.68 L or 76 % of predicted. FEV1/FVC | | | ratio was 58 %. Following inhalation of albuterol the patient's FEV1 | | | munira to 1.83, 83% of predicted. This represents 150 mL of | | | improvement or 9%. IMPRESSION: Spirometry is consistent with mild | | | obstructive physiology which appears to resolve following inhalation | | | of albuterol. Compared to pulmonary function tests performed on | | | 01/25/11 the postbronchodilator FEV1 has fallen 13%. Test performed: | | | 05/28/16Electronically signed by: Oleksandr Hyde MD 05/28/2016 | | | 14:56[facility] | | |physiology which appears to resolve following inhalation of | | |albuterol. Compared to pulmonary function tests performed on | | |01/25/11 the postbronchodilator FEV1 has fallen 13%. | | | | | | | | |Test performed: 05/28/16 | | |Electronically signed by: Oleksandr Hyde MD 05/28/2016 14:56 | | |[facility] | | + + + documented in this encounter Visit Diagnoses + + | Diagnosis | + + | Chronic obstructive pulmonary disease, unspecified COPD type (HCC) - Primary | + + | Hypoxemia | + + | Centrilobular emphysema (HCC) | + + documented in this encounter
--- OUTSIDE RECORDS SUMMARY | ~2019-12-11 | XMS | Encounter Summary ---
Demographics + + + | Address | [address] | | | [place] [address] | + + + | Home Phone | | + + + | Preferred Language | Unknown | + + + | Marital Status | Single | + + + | Latter Day Affiliation | Unknown | + + + | Race | White | + + + | Ethnic Group | Not or | + + + Author + + + | Author | [facility] | | | and [place] | + + + | Organization | [facility] | | | and [...] Team Providers + +------+ + | Care Training And Development Professional Name | Role | Phone | + +------+ + | David Arias MD | PCP | | + +------+ + Encounter Details +--------+ + + + + | Date | Type | Department | Care Team | Description | +--------+ + + + + | 12/23/ | Orders Only | [facility] | [place], | | | 2014 | | CARDIOLOGY [place] | [address] | | | | | [address] | [address] | | | | | [place], [place] | [place], [place] | | | | | [address] | [address] | | | | | [phone] | | | +--------+ + + + [...] | + +--------+ + + + | LIPID PANEL | Routin | 12/23/2014 | | Results for this | | | e | 6:20 AM | | procedure are in the | | | | PDT | | results section. | + +--------+ + + + | BASIC METABOLIC | Routin | 12/23/2014 | | Results for this | | PANEL | e | 6:20 AM | | procedure are in the | | | | PDT | | results section. | + +--------+ + + + documented in this encounter Results Lipid Panel (12/23/2014 6:20 AM PDT) + +---------+ + + + | Component | Value | Ref Range | Performed | Pathologist | | | | | At | Signature | + +---------+ + + + | Cholesterol | 198 | 200 mg/dL | EXTERNAL | | | | | | LAB | | + +---------+ + + + | Triglycerid | 132 | 30 - 150 mg/dL | EXTERNAL | | | es | | | LAB | | + +---------+ + + + | HDL | 63 | 40 mg/dl | EXTERNAL | | | | | | LAB | | + +---------+ + + + | LDL, | 109 (A) | 100 mg/dL | EXTERNAL | | | Calculated | | | LAB | | + +---------+ + + + | LDl/HDL | | | EXTERNAL | | | Ratio | | | LAB | | + +---------+ + + + | Chol/HDL | 634 (A) | 4.44 | EXTERNAL | | | Ratio | | | LAB | | + +---------+ + + + | VLDL | 26 | 4 - 40 mg/dL | EXTERNAL | | | | | | LAB | | + +---------+ + + + | Non HDL | 135 (A) | 130 | EXTERNAL | | | Chol. | | | LAB | | | (LDL+VLDL) | | | | | + +---------+ + + + + + | Specimen | + + | Blood specimen | | (specimen) | + + + +---------+ + + | Performing | Address | City/State/Zipcode | Phone Number | | Organization | | | | + +---------+ + + | EXTERNAL LAB | | | | + +---------+ + + Basic Metabolic Panel (12/23/2014 6:20 AM PDT) + +---------+ + + + | Component | Value | Ref Range | Performed | Pathologist | | | | | At | Signature | + +---------+ + + + | Glucose, | 103 (A) | 70 - 100 mg/dL | EXTERNAL | | | Fasting | | | LAB | | + +---------+ + + + | BUN | 18 | 6 - 23 mg/dL | EXTERNAL | | | | | | LAB | | + +---------+ + + + | Creatinine | 0.72 | 0.70 - 1.18 | EXTERNAL | | | | | mg/dL | LAB | | + +---------+ + + + | BUN/Creatin | 25.0 | 6.0 - 28.6 | EXTERNAL | | | ine Ratio | | | LAB | | + +---------+ + + + | Calcium | 9.2 | 8.4 - 10.2 | EXTERNAL | | | | | mg/dL | LAB | | + +---------+ + + + | Na | 139 | 132 - 143 | EXTERNAL | | | | | mmol/L | LAB | | + +---------+ + + + | K | 4.2 | 3.6 - 5.1 | EXTERNAL | | | | | mmol/L | LAB | | + +---------+ + + + | Cl | 108 | 95 - 112 mmol/L | EXTERNAL | | | | | | LAB | | + +---------+ + + + | CO2 | 24 | 19 - 31 mmol/L | EXTERNAL | | | | | | LAB | | + +---------+ + + + | Anion Gap | 11.2 | 7 - 21 mmol/L | EXTERNAL | | | | | | LAB | | + +---------+ + + + | Estimated | 80 | 60 mg/dL | EXTERNAL | | | GFR | | | LAB | | + +---------+ + + + + + | Specimen | + + | Blood specimen | | (specimen) | + + + +---------+ + + | Performing | Address | City/State/Zipcode | Phone Number | | Organization | | | | + +---------+ + + | EXTERNAL LAB | | | | + +---------+ + + documented in this encounter Visit Diagnoses Not on filedocumented in this encounter"
--- OUTSIDE RECORDS SUMMARY | ~2019-12-11 | XMS | Encounter Summary ---
Demographics + + + | Address | [address] | | | [place] [address] | + + + | Home Phone [...] Author + + + | Author | [facility] | | | and [place] | + + + | Organization | [facility] | | | [...] Team Providers + +------+ + | Care Precision Honing Machine Operator Name | Role | Phone | + +------+ + | David Arias MD | PCP | | + +------+ + Encounter Details +--------+ + + + + | Date | Type | Department | Care Team | Description | +--------+ + + + + | 03/17/ | Orders Only | [facility] | Isaias Decker MD | | | 2017 | | CARDIOLOGY [place] | [address] | | | | | [address] | [place] [address] | | | | | [place], [place] | [phone] | | | | | [address] | | | | | | [phone] | | | +--------+ + + + [...] | + +--------+ + + + | EXTERNAL LAB: CBC | Routin | 03/17/2017 | | Results for this | | | e | 9:50 AM | | procedure are in the | | | | PST | | results section. | + +--------+ + + + | BASIC METABOLIC | Routin | 03/17/2017 | | Results for this | | PANEL | e | 9:50 AM | | procedure are in the | | | | PST | | results section. | + +--------+ + + + documented in this encounter Results External Lab: CBC (03/17/2017 9:50 AM PST) + + + + + + | Component | Value | Ref Range | Performed | Pathologist | | | | | At | Signature | + + + + + + | WBC | 10.7 | 4.5 - 11.0 10 | EXTERNAL | | | | | | LAB | | + + + + + + | Non- | 4.99 | 3.8 - 5.1 10 | EXTERNAL | | | Red Blood | | | LAB | | | Cells | | | | | | Counted | | | | | + + + + + + | Hemoglobin | 15.2 | 12.0 - 16.0 | EXTERNAL | | | | | g/dL | LAB | | + + + + + + | Hematocrit, | 47.1 (A) | 35 - 45 % | EXTERNAL | | | POC | | | LAB | | + + + + + + | MCV | 94.3 | 81 - 99 fL | EXTERNAL | | | | | | LAB | | + + + + + + | MCH | 30 | 27 - 33 pg | EXTERNAL | | | | | | LAB | | + + + + + + | MCHC | 32 | 30 - 36 g/dL | EXTERNAL | | | | | | LAB | | + + + + + + | Platelet | 270 | 140 - 440 K/ L | EXTERNAL | | | Count | | | LAB | | | Plasma | | | | | + + + + + + | RDW-CV | 15.2 (A) | 10.5 - 15.0 % | EXTERNAL | | | | | | LAB | | + + + + + + | MPV | | fL | EXTERNAL | | | | | | LAB | | + + + + + + | Differentia | | | EXTERNAL | | | l Type | | | LAB | | + + + + + + | % Segmented | 22.3 (A) | 39 - 80 % | EXTERNAL | | | | | | LAB | | | Neutrophils | | | | | + + + + + + | % | 67.6 (A) | 24 - 44 % | EXTERNAL | | | Lymphocytes | | | LAB | | + + + + + + | % Monocytes | 8.0 | 0 - 12 % | EXTERNAL | | | | | | LAB | | + + + + + + | % | 1.6 | 0 - 6 % | EXTERNAL | | | Eosinophils | | | LAB | | + + + + + + | % Basophils | 0.5 | 0 - 2 % | EXTERNAL | | | | | | LAB | | + + + + + + | Absolute | | / L | EXTERNAL | | | Segmented | | | LAB | | | Neutrophils | | | | | + + + + + + | Absolute | | / L | EXTERNAL | | | Lymphocytes | | | LAB | | + + + + + + | Absolute | | / L | EXTERNAL | | | Monocytes | | | LAB | | + + + + + + | Absolute | | / L | EXTERNAL | | | Eosinophils | | | LAB | | + + + + + + | Absolute | | / L | EXTERNAL | | | Basophils | | | LAB | | + + + + + + + + | Specimen | + + | Blood specimen | | (specimen) | + + + +---------+ + + | Performing | Address | City/State/Zipcode | Phone Number | | Organization | | | | + +---------+ + + | EXTERNAL LAB | | | | + +---------+ + + Basic Metabolic Panel (03/17/2017 9:50 AM PST) + + + + + + | Component | Value | Ref Range | Performed | Pathologist | | | | | At | Signature | + + + + + + | Glucose, | 113 (A) | 70 - 100 mg/dL | EXTERNAL | | | Fasting | | | LAB | | + + + + + + | BUN | 18 | 6 - 23 mg/dL | EXTERNAL | | | | | | LAB | | + + + + + + | Creatinine | 0.63 (A) | 0.70 - 1.18 | EXTERNAL | | | | | mg/dL | LAB | | + + + + + + | BUN/Creatin | 28.6 | 6.0 - 28.6 | EXTERNAL | | | ine Ratio | | | LAB | | + + + + + + | Calcium | 9.7 | 8.4 - 10.2 | EXTERNAL | | | | | mg/dL | LAB | | + + + + + + | Na | 141 | 132 - 143 | EXTERNAL | | | | | mmol/L | LAB | | + + + + + + | K | 4.0 | 3.6 - 5.1 | EXTERNAL | | | | | mmol/L | LAB | | + + + + + + | Cl | 103 | 95 - 112 mmol/L | EXTERNAL | | | | | | LAB | | + + + + + + | CO2 | 26 | 19 - 31 mmol/L | EXTERNAL | | | | | | LAB | | + + + + + + | Anion Gap | 16.0 | 7 - 21 mmol/L | EXTERNAL | | | | | | LAB | | + + + + + + | Estimated | 92 | mg/dL | EXTERNAL | | | GFR | | | LAB | | + + + + + + + + | Specimen [...]
--- OUTSIDE RECORDS SUMMARY | ~2019-12-11 | XMS | Encounter Summary ---
Demographics + + + | Address | [address] | | | [place] [address] | + + + | Home Phone | | + + + | Preferred Language | Unknown | + + + | Marital Status | Single | + + + | Scientologist Affiliation | Unknown | + + + | Race | White | + + + | Ethnic Group | Not or | + + + Author + + + | Author | [facility] | | | and [place] | + + + | Organization | [facility] | | [...] Team Providers + +------+ + | Care Textile Technical Officer Name | Role | Phone | + +------+ + | David Arias MD | PCP | | + +------+ + Reason for Visit +--------+ + | Reason | Comments | +--------+ + | COPD | 3 wk follow up | +--------+ + Encounter Details +--------+---------+ + + + | Date | Type | Department | Care Team | Description | +--------+---------+ + + + | 06/25/ | Office | [facility] | Oleksandr Hyde, | Chest pain at rest | | 2019 | Visit | PULMONARY [address] | MD [address] | (Primary Dx); | | | | [place], | [place], [place] | Chronic obstructive | | | | [place] [address] | [address] | pulmonary disease, | | | | [phone] | | unspecified COPD | | | | | | type (HCC); | | | | | | Centrilobular | | | | | | emphysema ([facility]); | | | | | | Coronary artery | | | | | | disease, angina | | | | | | presence | | | | | | unspecified, | | | | | | unspecified vessel | | | | | | or lesion type, | | | | | | unspecified whether | | | | | | [place] or | | | | | | transplanted heart; | | | | | | Shortness of breath | +--------+---------+ + + + Social History [...] + + + | Blood Pressure | 128/80 | 06/25/2018 8:51 AM | | | | | PDT | | + + + + + | Pulse | 88 | 06/25/2018 8:51 AM | | | | | PDT | | + + + + + | Temperature | - | - | | + + + + + | Respiratory Rate | - | - | | + + + + + | Oxygen Saturation | 97% | 06/25/2018 8:51 AM | RA | | | | PDT | | + + + + + | Inhaled Oxygen | - | - | | | Concentration | | | | + + + + + | Weight | 70.5 kg (155 lb 6.8 | 06/25/2018 8:51 AM | | | | oz) | PDT | | + + + + + | Height | 162.6 cm (5' 4") | 06/25/2018 8:51 AM | | | | | PDT | | + + + + + | Body Mass Index | 26.68 | 06/25/2018 8:51 AM | | | | | PDT | | + + + + + documented in this encounter Patient Instructions Patient Instructions Oleksandr Hyde MD - 06/25/2018 9:00 AM PDT COPD Flare You have had a [...] Follow-up care Follow up with your healthcare provider, or as advised. If a culture was done, you will be told if your treatment needs to be changed. You can call as directedfor the results. If X-rays were done, you will be notified of any new findings that may affect your care. Call 911 Call 911 if any of [...] of 100.4F(38C) or higher, or as directed by your healthcare provider Coughing up lots of dark-colored or bloody mucus (sputum) Chest pain with each breath You do not start to get better within 24 hours Swelling of your ankles gets worse Dizziness or weakness Date Last Reviewed: 12/07/201519998068-5728 [employer]. [address] [place] [address], [place] [address]. All righ ts reserved. This information is not intended as a substitute for professional medical care. Always follow your healthcare professional's instructions. documented in this encounter Progress Notes Oleksandr Hyde MD - 06/25/2018 9:00 AM PDTFormatting of this note might be different f rom the original. Pulmonary Follow Up 06/25/2018 HPI Priscila Brasher is a 77 y.o. female patient of David Arias MD here today for follow up of Gold Stage I COPD, emphysema noted on CT scan, hypoxemia and recent exacerbation. The last pulmonary clinic visit was on 06/03/18. Since their last appointment they feel like their breathing issues have been decreasing. However Priscila Notes the presence of persistent substernal chest pain. She describes the discomfort as a heavy sensation there most of the time. Nothing she can do makes the pain lasts or worse. It is not like heartburn. The patient is known to have coronary artery disease And had a myocardial infarction in 2013 and is status post 4 coronary artery stents. They have not had any additional acute pulmonary illnesses. The patient has not required a prednisone taper since our last clinic appointment. Likewise Priscila has not required anti biotics for a COPD exacerbation since our last clinic appointment. The patient is currently on a daily regimen of Performist and budesonide for their COPD. T hey do feel like this medication regimen is/are controlling their symptoms. They are using t heir Duoneb nebulizer, ~1 times a day. Currently the patient is able to walk 150+ feet at their own pace on level ground before de veloping dyspnea. Fluctuates some. They are exercising regularly in pool. Their typical exe rcise consists of minimal walking. Priscila are not enrolled in cardiac/pulmonary rehabilita tion. They have not completed pulmonary rehabilitation in the past. Priscila does cough chronically and does not produce mucous. They have not had hemoptysis si nce our last appointment. She has been evaluated for nocturnal oxygen. They currently are using nocturnal oxygen. Mode oakley is currently on 2 LPM at night while sleeping. They report excellent compliance. They have been evaluated for daytime oxygen and do use it. They are currently on 2-3 LPM with exertio n and 2 LPM at rest. They have not reported recent symptoms of nasal congestion, runny nose or post nasal drip. The patient have received this year's influenza vaccination. They are up to date with thei r Pneumovax and Prevnar 13. Past Medical History Past Medical History: Diagnosis Date Acid reflux disease Acute MS (HCC) 12/15/13 4 stents placed Arthritis Depression COLINDRES (dyspnea on exertion) Emphysema Normal FEV1 and extensive on CT scan Fatigue Hepatitis B infection Hiatal hernia History of migraine headaches Hypoxemia Non Hodgkin's lymphoma (HCC) 2008 no recurrence, seen by Dr. Gonzalez annually Osteoporosis Pneumonia Episodes 1990 and 2013 Polio 1952 Pulmonary embolus (HCC) 2009 after surgery Reflux Rheumatic fever 1947 enlarged heart and murmur for a while Sleep apnea No CPAP. O2 at night. Valvular heart disease Social History: She reports that she quit smoking about 29 years ago. Her smoking use included Cigarettes. She has a 180.00 pack-year smoking history. She has never used smokeless tobacco. She report s that she does not drink alcohol or use drugs. Allergies: Allergies Allergen Reactions Penicillins Anaphylaxis Sulfa Antibiotics Other reaction(s): Severe Skin Reaction HIVES/SWELLING Rifampin Hives Codeine Codeine Sulfate Nausea And Vomiting Isosorbide Nitrate Nausea And Vomiting Other reaction(s): Headache Tetanus Toxoid Other reaction(s): GI Distress Tetanus Toxoids Hives Medications: Current Outpatient Prescriptions: albuterol-ipratropium 2.5-0.5 mg/3 mL SOLN, Take 3 mLs by nebulization every 4 hours a s needed for Shortness of Breath (shortness of breath)., Disp: 360 mL, Rfl: 11 amitriptyline (ELAVIL) 25 mg tablet, Take one tablet at bedtime, Disp: , Rfl: 99 aspirin 81 mg EC tablet, Take 81 mg by mouth Daily., Disp: , Rfl: budesonide (PULMICORT) 0.5 mg/2 mL nebulizer solution, Take 0.5 mg by nebulization Twi ce Daily., Disp: , Rfl: cyclobenzaprine (FLEXERIL) 10 mg tablet, Take 10 mg by mouth Daily as needed., Disp: , Rfl: diclofenac-misoprostol (ARTHROTEC 75) 75-0.2 mg per tablet, Take 1 tablet by mouth Romina ly., Disp: , Rfl: fluticasone (FLONASE) 50 mcg/nasal spray, 2 sprays by Nasal route Daily., Disp: , Rfl: 99 formoterol (PERFOROMIST) 20 MCG/2ML nebulizer solution, Take 20 mcg by nebulization Ev brenda 12 hours., Disp: , Rfl: melatonin 1 mg TABS, Take 1 mg by mouth Daily as needed., Disp: , Rfl: metoprolol succinate (TOPROL-XL) 25 mg 24 hr tablet, Take 1.5 tablets by mouth Daily., Disp: 45 tablet, Rfl: 6 miSOPROStol (CYTOTEC) 200 MCG tablet, Take one tablet daily, Disp: , Rfl: 3 nitroglycerin (NITROSTAT) 0.4 mg SL tablet, Place 0.4 mg under the tongue as needed fo r Chest pain., Disp: , Rfl: omeprazole (PRILOSEC) 20 mg capsule, Take 20 mg by mouth Daily., Disp: , Rfl: OnabotulinumtoxinA (BOTOX IJ), Inject as directed Every 3 months., Disp: , Rfl: oxygen, Inhale 2 L into the lungs continuous., Disp: , Rfl: SUMAtriptan (IMITREX) 100 mg tablet, Take 100 mg by mouth Daily as needed., Disp: , Rf l: Immunizations: Immunization History Administered Date(s) Administered INFLUENZA 65 Y OR >, TRIVALENT HIGH-DOSE 01/19/2015, 01/15/2016, 01/22/2018 INFLUENZA PF 18 Y OR >,TRIVALENT RECOMBINANT 01/20/2012, 01/19/2013, 01/19/2014 PNEUMOCOCCAL CONJUGATE 13-VALENT (PCV13) 08/19/2014 PNEUMOCOCCAL POLYSACCHARIDE 23-VALENT (PPSV23) 04/07/1996, 01/10/2011, 12/10/2012 TDAP, (ADOL/ADULT) 06/16/2010, 08/24/2011 ZOSTER, 1 DOSE (ZOSTAVAX) 10/24/2008, 01/24/2009, 06/16/2009 Objective BP 128/80 | Pulse 88 | Ht 1.626 m (5' 4") | Wt 70.5 kg (155 lb 6.8 oz) | SpO2 97% Comme nt: RA | BMI 26.68 kg/m Physical Exam Constitutional: She is oriented to person, place, and time and well-developed, well-nourish ed, and in no distress. HENT: Head: Normocephalic. Nose: No mucosal edema. Right sinus exhibits no frontal sinus tenderness. Left sinus exhibi ts no frontal sinus tenderness. Mouth/Throat: Oropharynx is clear and moist and mucous membranes are normal. Neck: Trachea normal. Neck supple. No JVD present. Cardiovascular: Normal rate, regular rhythm, S1 normal and S2 normal. No murmur heard. Pulmonary/Chest: No accessory muscle usage. No respiratory distress. She has decreased marleni th sounds in the right lower field and the left lower field. She has no wheezes. She has no rhonchi. She has no rales. Musculoskeletal: She exhibits no edema. Lymphadenopathy: She has no cervical adenopathy. Neurological: She is alert and oriented to person, place, and time. Gait normal. Skin: Skin is warm and intact. No cyanosis. Nails show no clubbing. Psychiatric: Affect normal. Data: None Assessment 1. COPD exacerbation status post course of azithromycin and prednisone. Symptoms gradua lly returned to baseline. 2. Chest pain history of coronary artery disease status post myocardial infarction in 2 014 with 4 coronary artery stents. Patient reports persistent substernal chest pain/heavine ss. Upon further reflection assessment for nonpulmonary etiologies seems reasonable. Specifica lly ischemia/PE. The patient did recently take prednisone raising the possibility of esopha gitis. 3. COPD Gold stage I with radiographic evidence of severe emphysema. The patient's FEV1 appears to underestimate the severity of her obstructive lung disease. Current treatment is with budesonide, Perforomist and as needed albuterol/ipratropium via n ebulizer. The patient is up-to-date with respect to her seasonal influenza vaccination, Pre vnar and Pneumovax. No ongoing tobacco use. 4. Hypoxemia stable O2 requirements. Total duration of the patient's clinic appointment was in excess of 30 minutes. Greater th an 50% of time was spent discussing prognosis of her COPD and further evaluation of right petersen bsternal chest heaviness. Plan 1. Blood for d-dimer, CPK, CPK-MB, troponin and BNP. 2. Pulmonary clinic follow-up appointment in 3 months time. CC: David Arias MD documented in this encounter Plan of Treatment Not on filedocumented as of this encounter Procedures + +--------+ + + + | Procedure Name | Priori | Date/Time | Associated Diagnosis | Comments | | | ty | | | | + +--------+ + + + | TROPONIN I | Routin | 06/25/2018 | Chest pain at rest | Results for this | | | e | 9:28 AM | | procedure are in the | | | | PDT | | results section. | + +--------+ + + + | D-DIMER | Routin | 06/25/2018 | Chest pain at rest | Results for this | | | e | 9:28 AM | | procedure are in the | | | | PDT | | results section. | + +--------+ + + + | B TYPE NATRIURETIC | Routin | 06/25/2018 | Chest pain at rest | Results for this | | PEPTIDE | e | 9:28 AM | Shortness of | procedure are in the | | | | PDT | breath | results section. | + +--------+ + + + | CK TOTAL AND CK-MB | Routin | 06/25/2018 | Chest pain at rest | Results for this | | | e | 9:28 AM | | procedure are in the | | | | PDT | | results section. | + +--------+ + + + documented in this encounter Results CK Total with CK-MB (06/25/2018 9:28 AM PDT) + +-------+ + + + | Component | Value | Ref Range | Performed | Pathologist | | | | | At | Signature | + +-------+ + + + | CK TOTAL | 44 | 34 - 145 U/L | [facility] | [facility] | | [facility] | | | | | | [facility] | | | | | [facility] - | | | | | | LABORATORY | | + +-------+ + + + | CK-MB | 2.8 | ng/mL | [facility] | | | | | | [facility] | | | | | | [facility] - | | | | | | LABORATORY | | + +-------+ + + + | CK-MB Index | 6.4 | % | [facility] | [facility] | | | | | | [facility] | | | | | | [facility] - | | | | | | LABORATORY | | + +-------+ + + + + + | Specimen | + + | Blood | + + + + + + + | Performing | Address | City/State/Zipcode | Phone Number | | Organization | | | | + + + + + | [facility] | [address] | [place] | [phone] | | [facility] | | [address] | | | - LABORATORY | | | | + + + + + Troponin I (06/25/2018 9:28 AM PDT) + +-------+ + + + | Component | Value | Ref Range | Performed | Pathologist | | | | | At | Signature | + +-------+ + + + | Troponin I | <0.01 | <0.06 ng/mL | [facility] | | | | | [facility] | | | | | [facility] | | | | | | [facility] - | | | | | | LABORATORY | | + +-------+ + + + + + | Specimen | + + | Blood | + + + + + + + | Performing | Address | City/State/Zipcode | Phone Number | | Organization | | | | + + + + + | [facility] | [address] | [place] | [phone] | | [facility] | | [address] | | | - LABORATORY | | | | + + + + + D-Dimer (06/25/2018 9:28 AM PDT) + + + + + + | Component | Value | Ref Range | Performed | Pathologist | | | | | At | Signature | + + + + + + | D-Dimer | 0.66 (H)Comment: This | <=0.50 ug/ml | [facility] | | | Quantitativ | quantitative D-Dimer | | [facility] | | | e | assay has been evaluated | | MEDICAL | | | | for screening for | | CENTER - | | | | venous thrombotic | | LABORATORY | | | | disease, and may be | | | | | | useful in ruling out, | | | | | | but not ruling in | | | | | | disease. Values less | | | | | | than 0.50 ug/mL FEU | | | | | | (Fibrinogen Equivalent | | | | | | Units) have a negative | | | | | | predictive value of | | | | | | approximately 95% for | | | | | | ruling out large | | | | | | pulmonary emboli or | | | | | | proximal deep vein | | | | | | thrombosis. Distal DVT | | | | | | are not excluded. An | | | | | | elevated D-dimer can be | | | | | | present in patients with | | | | | | liver disease, | | | | | | , eclampsia, | | | | | | heart disease and some | | | | | | cancers among other | | | | | | conditions. The presence | | | | | | of rheumatoid factor at | | | | | | a level >50 IU/mL may | | | | | | falsely elevate the | | | | | | determined D-dimer | | | | | | levels. | | | | + + + + + + + + | Specimen | + + | Blood | + + + + + + + | Performing | Address | City/State/Zipcode | Phone Number | | Organization | | | | + + + + + | [facility] | [address] | [place] | [phone] | | [facility] | | [address] | | | - LABORATORY | | | | + + + + + B Type Natriuretic Peptide (06/25/2018 9:28 AM PDT) + +---------+ + + + | Component | Value | Ref Range | Performed | Pathologist | | | | | At | Signature | + +---------+ + + + | BNP | 118 (H) | <100 pg/mL | [facility] | | | | | | [facility] | | | | | | [facility] | | | | | | [facility] - | | | | | | LABORATORY | | + +---------+ + + + + + | Specimen | + + | Blood | + + + + + + + | Performing | Address | City/State/Zipcode | Phone Number | | Organization | | | | + + + + + | [facility] | [address] | [place] | [phone] | | [facility] | | [address] | | | - LABORATORY | | | | + + + + + documented in this encounter Visit Diagnoses + + | Diagnosis | + + | Chest pain at rest - Primary Chest pain, unspecified | + + | Chronic obstructive pulmonary disease, unspecified COPD type (HCC) | + + | Centrilobular emphysema (HCC) | + + | Coronary artery disease, angina presence unspecified, unspecified vessel or lesion | | type, unspecified whether [place] or transplanted heart | + + | Shortness of breath | + + documented in this encounter
--- OUTSIDE RECORDS SUMMARY | ~2019-12-11 | XMS | Encounter Summary ---
Demographics + + + | Address | [address] | | | [place] [address] | + + + | Home Phone | | + + + | Preferred Language | Unknown | + + + | Marital Status | Single | + + + | Moravian Affiliation | Unknown | + + + | Race | White | + + + | Ethnic Group | Not or | + + + Author + + + | Author | [facility] | | | and [place] | + + + | Organization | [facility] | | | [...] Team Providers + +------+ + | Care Insurance Territory Manager Name | Role | Phone | + +------+ + | David Arias MD | PCP | | + +------+ + Encounter Details +--------+ + + + + | Date | Type | Department | Care Team | Description | +--------+ + + + + | 12/12/ | Orders Only | [facility] | Isaias Decker MD | | | 2015 | | CARDIOLOGY [place] | [address] | | | | | [address] | [place] [address] | | | | | [address] | [phone] | | | | | [place], [place] | | | | | | [address] | | | | | | [phone] | | | +--------+ + + + [...] | + +--------+ + + + | NM MYOCARDIAL | Routin | 12/13/2015 | | Results for this | | PERFUSION MULT SPECT | e | 4:27 PM | | procedure are in the | | | | PDT | | results section. | + +--------+ + + + documented in this encounter Results NM Myocardial Perfusion Mult SPECT (12/13/2015 4:27 PM PDT) + + | Specimen | + + | | + + + + + | Impressions | Performed At | + + + | Abnormal study. Low to intermediate risk. Evidence of ischemia in | | | the LAD territory. LVEF 58 % Poor exercise tolerance. No chest | | | pain. Evidence of No ischemic ECG changes Tripp Treadmill Score is | | | -6 ( intermediate risk) No previous test for comparison | | | | | + + + + + + | Narrative | Performed At | + + + | [facility] CARDIOLOGY [address], [place], [place] | | | [phone] NUCLEAR TREADMILL STRESS TEST ? Test Date: | | | 12/13/2015 Name: Priscila Brasher : 1940 | | | Ordering MD: Isaias Decker MD History: 75 year old female being | | | evaluated for chest pain, coronary artery disease Rest Data: HR: | | | 64 bmp BP: 143/85 Patient's predicted maximum HR: 147 bmp | | | Patient's predicted 85% maximum HR: 125 bmp Baseline ECG: Normal | | | sinus rhythm Stress Data: Exercise time: 03:04 METS: 4.70 Peak | | | HR: 133 bpm Peak BP: 179/107 RPP: [id number] Patient stopped due to: | | | shortness of breath, and pace of treadmill too fast Chest pain: | | | non-limiting Stress ECG: Evidence of ischemic ECG changes with 1 mm | | | ST depression. Myocardial Perfusion: Images are sub-optimal (but | | | interpretable) for interpretation. Sub-optimal due to motion | | | Evidence of perfusion defect in the mid to distal anterior wall | | | including the apex, moderate size, moderate in severity, reversible. | | | SSS: 3 SRS: 0 SDS: 0 TID: 1.00 Gated Images: Rest EDV: 77 mL Rest | | | ESV: 30 mL Rest EF: 61 % Stress EDV: 86 mL Stress ESV: 34 mL Stress | | | EF: 58 % No evidence of regional wall motion abnormality | | | Procedure: Roderick protocol. 12.0 mCi of 99m Tc Myoview was given | | | intravenously for rest images. 32.3 mCi of 99m Tc Myoview was given | | | intravenously for stress images at 03:00minutes. Effective Dose | | | Equivalent 15.3 mSv | | + + + + + | Procedure Note | + + | Lorenzo Allan Conversion - 11/27/2018 10:44 AM [facility] [id number] [employer] | | , [facility], [place], [phone] NUCLEAR TREADMILL STRESS TEST?Test Date: | | 12/13/2015Name: SameeraPriscilaRAYMOND: 1940MRN: [id number] MD: Isaias Decker, | | History:75 year old female being evaluated for chest pain, coronary artery disease | | Rest Data:HR: 64 bmp BP: 143/85Patient's predicted maximum HR: 147 bmpPatient's | | predicted 85% maximum HR: 125 bmpBaseline ECG: Normal sinus rhythm Stress Data:Exercise | | time: 03:04 METS: 4.70Peak HR: 133 bpm Peak BP: 179/107 RPP: [id number] stopped due | | to: shortness of breath, and pace of treadmill too fastChest pain: non-limitingStress | | ECG: Evidence of ischemic ECG changes with [address] depression. Myocardial | | Perfusion:Images are sub-optimal (but interpretable) for interpretation.Sub-optimal due | | to motionEvidence of perfusion defect in the mid to distal anterior wall including the | | apex, moderate size, moderate in severity, reversible.SSS: 3 SRS: 0 SDS: 0 TID: 1.00 | | Gated Images:Rest EDV: 77 mL Rest ESV: 30 mL Rest EF: 61 %Stress EDV: 86 mL Stress ESV: | | 34 mL Stress EF: 58 %No evidence of regional wall motion abnormality Procedure: Roderick | | protocol.12.0 mCi of 99m Tc Myoview was given intravenously for rest images.32.3 mCi of | | 99m Tc Myoview was given intravenously for stress images at 03:00minutes.Effective Dose | | Equivalent 15.3 mSv IMPRESSION: Abnormal study. Low to intermediate risk.Evidence of | | ischemia in the LAD territory.LVEF 58 %Poor exercise tolerance.No chest pain.Evidence of | | No ischemic ECG changesDuke Treadmill Score is -6 ( intermediate risk)No previous test | | for comparison | | | |Stress Data: | |Exercise time: 03:04 METS: 4.70 | |Peak HR: 133 bpm Peak BP: 179/107 RPP: [id number] | |Patient stopped due to: shortness of breath, and pace of treadmill too fast | |Chest pain: non-limiting | |Stress ECG: Evidence of ischemic ECG changes with [address] depression. | | | |Myocardial Perfusion: | |Images are sub-optimal (but interpretable) for interpretation. | |Sub-optimal due to motion | |Evidence of perfusion defect in the mid to distal anterior wall including the apex, moderat e size, moderate in severity, reversible. | |SSS: 3 SRS: 0 SDS: 0 TID: 1.00 | | | |Gated Images: | |Rest EDV: 77 mL Rest ESV: 30 mL Rest EF: 61 % | |Stress EDV: 86 mL Stress ESV: 34 mL Stress EF: 58 % | |No evidence of regional wall motion abnormality | | | |Procedure: Roderick protocol. | |12.0 mCi of 99m Tc Myoview was given intravenously for rest images. | |32.3 mCi of 99m Tc Myoview was given intravenously for stress images at 03:00minutes. | |Effective Dose Equivalent 15.3 mSv | | | |IMPRESSION: | |Abnormal study. Low to intermediate risk. | |Evidence of ischemia in the LAD territory. | |LVEF 58 % | |Poor exercise tolerance. | |No chest pain. | |Evidence of No ischemic ECG changes | |Tripp Treadmill Score is -6 ( intermediate risk) | |No previous test for comparison | | | | | + + documented in this encounter Visit Diagnoses Not on filedocumented in this encounter"
--- OUTSIDE RECORDS SUMMARY | ~2019-12-11 | XMS | Encounter Summary ---
Demographics + + + | Address | [address] | | | [place] [address] | + + + | Home Phone | | + + + | Preferred Language | Unknown | + + + | Marital Status | Single | + + + | Pentecostalism Affiliation | Unknown | + + + | Race | White | + + + | Ethnic Group | Not or | + + + Author + + + | Author | [facility] | | | and [place] | + + + | Organization | [facility] | | | [...] Team Providers + +------+ + | Care Electrotype Finisher Name | Role | Phone | + +------+ + | David Arias MD | PCP | | + +------+ + Encounter Details +--------+ + + + + | Date | Type | Department | Care Team | Description | +--------+ + + + + | 07/27/ | Hospital | [facility] | Roman, Pooja, | Tachycardia (Primary | | 2014 | Encounter | MED CTR NUCLEAR | MD [address] | Dx); Chest | | | | MEDICINE [address] [place], | discomfort | | | | [place], | [place] [address] | | | | | [place] [address] | [phone] | | | | | [phone] | | | +--------+ + + + + Social History + + + +--------+------+ | Tobacco Use | Types | Packs/Day | Years | Date | | | | | Used | | + + + +--------+------+ | Former Smoker | Cigarettes | 4 | 45 | | + + + +--------+------+ + +---+---+---+ | Smokeless Tobacco: | | [...] + + documented as of this encounter Procedure Notes Pooja Owens MD - 07/29/2013 1:40 PM PDTAssociated Order(s): HOLTER MONITOR - 48 MERON RProcedure(s): HOLTER MONITOR - 48 HOURFormatting of this note might be different from the o riginal. PATIENT NAME: Priscila Brasher : 1940: AGE: 72 y.o. PRIMARY CARE: David Arias MD READING INSPECTOR CONVEYOR LINE: Pooja Ownes MD 48-HOUR HOLTER MONITOR REPORT DATE: 07/27/2013 IMPRESSION: 1. The predominant rhythm is normal sinus with the heart rate ranging between 66 and 152 b eats per minute. The average heart rate was 99 beats per minute during the 48:32 hour recor ding. 2. Very rare ventricular events including 4 couplets and one run of bigeminy. 3. Very rare supraventricular events including 2 three beat runs of PSVT. The maximum rat e was 170 beats per minute (13:20-1). 4. No bradycardia or pauses. 5. Patient did not report any symptoms. Signed by: Pooja Owens MD [facility] 07/29/2013, 13:40 documented in this encounter Plan of Treatment Not on filedocumented as of this encounter Procedures + +--------+ + + + | Procedure Name | Priori | Date/Time | Associated Diagnosis | Comments | | | ty | | | | + +--------+ + + + | HOLTER MONITOR - 48 | Routin | 07/29/2013 | Tachycardia | Results for this | | HOUR | e | 2:10 PM | | procedure are in the | | | | PDT | | results section. | + +--------+ + + + documented in this encounter Results Holter monitor - 48 hour (07/29/2013 2:10 PM PDT) + + + | Narrative | Performed At | + + + | Pooja Owens MD 07/29/2013 14:10 PATIENT NAME: | | | Priscila Brasher : 1940: AGE: 72 y.o. | | | PRIMARY CARE: David Hansen | | | MD Hugo READING INSPECTOR CONVEYOR LINE: Pooja Owens MD | | | 48-HOUR HOLTER MONITOR REPORT DATE: 07/27/2013 | | | IMPRESSION: 1. The predominant rhythm is normal sinus with the | | | heart rate ranging between 66 and 152 beats per minute. The | | | average heart rate was 99 beats per minute during the 48:32 hour | | | recording. 2. Very rare ventricular events including 4 couplets and | | | one run of bigeminy. 3. Very rare supraventricular events | | | including 2 three beat runs of PSVT. The maximum rate was 170 | | | beats per minute (13:20-1). 4. No bradycardia or pauses. 5. | | | Patient did not report any symptoms. Signed by: Pooja | | | MD Roman [facility] 07/29/2013, 13:40 | | + + + + ------+ | Procedure Note | + ------+ | Pooja Owens MD - 07/29/2013 1:40 PM PDT Formatting of this note might be | | different from the original.PATIENT NAME: Priscila Brasher : 1940: | | AGE: 72 y.o. PRIMARY CARE:David Arias, | | [facility] INSPECTOR CONVEYOR LINE:Pooja Owens MD 48-HOUR HOLTER MONITOR REPORTDATE: | | 07/27/2013 IMPRESSION:1. The predominant rhythm is normal sinus with the heart rate | | ranging between 66 and 152 beats per minute. The average heart rate was 99 beats per | | minute during the 48:32 hour recording.2. Very rare ventricular events including 4 | | couplets and one run of bigeminy.3. Very rare supraventricular events including 2 three | | beat runs of PSVT. The maximum rate was 170 beats per minute (13:20-1).4. No | | bradycardia or pauses.5. Patient did not report any symptoms.Signed by: Pooja | | MD Roman [facility] 07/29/2013, 13:40 | |Pooja Owens MD | | | | | |48-HOUR HOLTER MONITOR REPORT | | | |DATE: 07/27/2013 | | | | | |IMPRESSION: | | | |1. The predominant rhythm is normal sinus with the heart rate ranging between 66 and 152 b eats per minute. The average heart rate was 99 beats per minute during the 48:32 hour recor ding. | |2. Very rare ventricular events including 4 couplets and one run of bigeminy. | |3. Very rare supraventricular events including 2 three beat runs of PSVT. The maximum rat e was 170 beats per minute (13:20-1). | |4. No bradycardia or pauses. | |5. Patient did not report any symptoms. | | | | | |Signed by: Pooja Owens MD [facility] | | 07/29/2013, 13:40 | + ------+ documented in this encounter Visit Diagnoses + + | Diagnosis | + + | Tachycardia - Primary Tachycardia, unspecified | + + | Chest discomfort Other chest pain | + + documented in this encounter"
--- OUTSIDE RECORDS SUMMARY | ~2019-12-11 | XMS | Encounter Summary ---
Demographics + + + | Address | [address] | | | [place] [address] | + + + | Home Phone | | + + + | Preferred Language | Unknown | + + + | Marital Status | Single | + + + | Jehovah'S Witness Affiliation | Unknown | + + + | Race | White | + + + | Ethnic Group | Not or | + + + Author + + + | Author | [facility] | | | and [place] | + + + | Organization | [facility] | | | [...] Team Providers + +------+ + | Care Customs Compliance Analyst Name | Role | Phone | + +------+ + | David Arias MD | PCP | | + +------+ + Reason for Visit +--------+ + | Reason | Comments | +--------+ + | COPD | 6 mo follow up | +--------+ + Encounter Details +--------+---------+ + + + | Date | Type | Department | Care Team | Description | +--------+---------+ + + + | 09/24/ | Office | [facility] | Oleksandr Hyde, | Centrilobular | | 2019 | Visit | PULMONARY [address] | MD [address] | emphysema (HCC) | | | | [place], | [place] | (Primary Dx); | | | | [place] [address] | [id number] | Hypoxemia | | | | [phone] | | | +--------+---------+ + + + Social History [...] + + + | Blood Pressure | 126/82 | 09/24/2018 8:57 AM | | | | | PDT | | + + + + + | Pulse | 72 | 09/24/2018 8:57 AM | | | | | PDT | | + + + + + | Temperature | - | - | | + + + + + | Respiratory Rate | - | - | | + + + + + | Oxygen Saturation | 98% | 09/24/2018 8:57 AM | 2L Pulse | | | | PDT | | + + + + + | Inhaled Oxygen | - | - | | | Concentration | | | | + + + + + | Weight | 72.2 kg (159 lb 2.8 | 09/24/2018 8:57 AM | | | | oz) | PDT | | + + + + + | Height | 162.6 cm (5' 4") | 09/24/2018 8:57 AM | | | | | PDT | | + + + + + | Body Mass Index | 27.32 | 09/24/2018 8:57 AM | | | | | PDT | | + + + + + documented in this encounter Patient Instructions Patient Instructions Oleksandr Hyde MD - 09/24/2018 9:00 AM PDT Influenza (Adult) Please get high dose flu shot in January 2019 Influenza is also called the flu. It is a viral illness that affects the air passages of yo ur lungs. It is different from the common cold. The flu can easily be passed from one to per son to another. It may be spread through the air by coughing and sneezing. Or it can be spre ad by touching the sick person and then touching your own eyes, nose, or mouth. The flu starts 1 to 3 days after you are exposed to the flu virus. It may lastfor 1 to 2 weeks but many people feel tired or fatigued for many weeks afterward. You usually don t n eed to take antibiotics unless you have a complication. This might be an ear or sinus infect ion or pneumonia. Symptoms of the flu may be mild or severe. They can include extreme tiredness (wanting to s kaitlin in bed all day), chills, fevers, muscle aches, soreness with eye movement, headache, and a dry, hacking cough. Home care Follow these guidelines when caring for yourself at home: Avoid being around cigarette smoke, whether yours or other people s. Acetaminophen or ibuprofen will help ease your fever, muscle aches, and headache. Don t give aspirin to anyone younger than 18 who has the flu. Aspirin can harm the liver. Nausea and loss of appetite are common with the flu. Eat light meals. Drink 6 to 8 glass es of liquids every day. Good choices are water, sport drinks, soft drinks without caffeine, juices, tea, and soup. Extra fluids will also help loosen secretions in your nose and lungs . Dsop-exq-ljihpmv cold medicines will not make the flu go away faster. But the medicines may help with coughing, sore throat, and congestion in your nose and sinuses. Don t use a decongestant if you have high blood pressure. Stay home until your fever has been gone for at least 24 hours without using medicine to reduce fever. Follow-up care Follow up with your healthcare provider, or as advised, if you are not getting better over the next week. If you are age 65 or older, talk with your provider about getting a pneumococcal vaccine ev brenda 5 years. You should also get this vaccine if you have chronic asthma or COPD. All adults should get a flu vaccine every fall. Ask your provider about this. When to seek medical advice Call your healthcare provider right away if any of these occur: Cough with lots of colored mucus (sputum) or blood in your mucus Chest pain, shortness of breath, wheezing, or trouble breathing Severe headache, or face, neck, or ear pain New rashwith fever Fever of 100.4F (38C)or higher, or asdirected by your healthcare provider Confusion, behavior change, or seizure Severe weakness or dizziness You get a newfever or cough after getting better for a few days Date Last Reviewed: 04/07/201619991305-4432 [employer]. [address] [place] [address]. All righ ts reserved. This information is not intended as a substitute for professional medical care. Always follow your healthcare professional's instructions. documented in this encounter Progress Notes Oleksandr Hyde MD - 09/24/2018 9:00 AM PDTFormatting of this note might be different f rom the original. Pulmonary Follow Up 09/24/2018 HPI Priscila Brasher is a 78 y.o. female patient of David Arias MD here today for follow up of severe COPD. The last pulmonary clinic visit was on 06/25/18. Since their last appointment they feel like their breathing issues have been stable. Since her last clinic appointment Priscila has been working with Dr. Arias regarding exer tional tachycardia. She has had adjustments made to her metoprolol dose. The patient also apparently had a temporal artery biopsy and has received prednisone for polymyalgia rheumati ca. They have not had any acute pulmonary illnesses. The patient has not required a prednisone taper since our last clinic appointment. Likewise Priscila has not required antibiotics for a COPD exacerbation since our last clinic appointment. The patient is currently on a daily regimen of budesonide and Performist for their COPD. Petra smith do feel like this medication regimen is/are controlling their symptoms. They are using t heir Duoneb nebulizer, 1-2 times a day. Currently the patient is able to walk 200 feet at their own pace on level ground before dev eloping dyspnea. They are exercising regularly. Their typical exercise consists of water aer obics MWF and weights twice per week. Priscila are not enrolled in cardiac/pulmonary rehabil itation. They have completed pulmonary rehabilitation in the past. Priscila does cough chronically and does not produce mucous. They have not had hemoptysis s maurice our last appointment. She has been evaluated for nocturnal oxygen. They currently are using nocturnal oxygen. Mode oakley is currently on 2 LPM at night while sleeping. They report excellent compliance. They have been evaluated for daytime oxygen and do use it. They are currently on 2 LPM with exertion and 2 LPM at rest. They have not reported recent symptoms of nasal congestion, runny nose or post nasal drip. The patient have received this year's influenza vaccination. They are up to date with thei r Pneumovax and Prevnar 13. Previously appreciated chest pain has resolved. Past Medical History Past Medical History: Diagnosis Date Acid reflux disease Acute LA (HCC) 12/15/13 4 stents placed Arthritis CAD (coronary artery disease) 06/25/2018 Depression COLINDRES (dyspnea on exertion) Emphysema Normal FEV1 and extensive on CT scan Fatigue Hepatitis B infection 1969' Hiatal hernia History of migraine headaches Hypoxemia Non Hodgkin's lymphoma (HCC) 2008 no recurrence, seen by Dr. Gonzalez annually Osteoporosis Pneumonia Episodes 1990 and 2013 Polio 3 Pulmonary embolus (HCC) 2009 after surgery Reflux Rheumatic fever 1947 enlarged heart and murmur for a while Sleep apnea No CPAP. O2 at night. Valvular heart disease Social History: She reports that she quit smoking about 29 years ago. Her smoking use included cigarettes. She has a 180.00 pack-year smoking history. [...] Distress Tetanus Toxoids Hives Medications: Current Outpatient Medications: albuterol-ipratropium 2.5-0.5 mg/3 mL SOLN, Take 3 mLs by nebulization every 4 hours a s needed for Shortness of Breath (shortness of breath)., Disp: 360 mL, Rfl: 11 amitriptyline (ELAVIL) 25 mg tablet, Take one tablet at bedtime, Disp: , Rfl: 99 aspirin 81 mg EC tablet, Take 81 mg by mouth Daily., Disp: , Rfl: atorvaSTATin (LIPITOR) 40 mg tablet, Take 40 mg by mouth nightly., Disp: , Rfl: budesonide (PULMICORT) 0.5 mg/2 mL nebulizer solution, Take 0.5 mg by nebulization Twi ce Daily., Disp: , Rfl: cyclobenzaprine (FLEXERIL) 10 mg tablet, Take 10 mg by mouth Daily as needed., Disp: , Rfl: fluticasone (FLONASE) 50 mcg/nasal spray, 2 sprays by Nasal route Daily., Disp: , Rfl: 99 formoterol (PERFOROMIST) 20 MCG/2ML nebulizer solution, Take 20 mcg by nebulization Ev brenda 12 hours., Disp: , Rfl: metoprolol succinate (TOPROL-XL) 50 mg 24 hr tablet, Take 50 mg by mouth Daily., Disp: , Rfl: miSOPROStol (CYTOTEC) 200 MCG tablet, Take one [...] DOSE (ZOSTAVAX) 10/24/2008, 01/24/2009, 06/16/2009 Objective BP 126/82 | Pulse 72 | Ht 1.626 m (5' 4") | Wt 72.2 kg (159 lb 2.8 oz) | SpO2 98% Comme nt: 2L Pulse | BMI 27.32 kg/m Physical Exam Constitutional: She is oriented [...] Psychiatric: Affect normal. Data: None Assessment 1. COPD/emphysema severe based on symptoms/radiographic extent of emphysema rather than degree of airflow obstruction. Current treatment regimen consist of budesonide, Performist and as needed DuoNeb. Over the last 3 months Priscila has not experienced symptoms concerning for an exacerbation of her COPD. 2. Hypoxemia patient wearing supplemental oxygen at all times. Her resting O2 saturatio n today on supplemental oxygen at 2 L/min is 98%. I have suggested to the patient that she continue to wear supplemental oxygen at 2 L/min wi th exertion and while sleeping but that she can forego supplemental oxygen at rest. Plan 1. High-dose seasonal influenza vaccination is recommended for January 2019. 2. Continue with regularly scheduled exercise. 3. The interval between pulmonary clinic follow-up appointments will be lengthened to 6 mo nths. CC: David Arias MD documented in this encounter Plan of Treatment Not on filedocumented as of this encounter Procedures + +--------+ + + + | Procedure Name | Priori | Date/Time | Associated Diagnosis | Comments | | | ty | | | | + +--------+ + + + | LABS - EXTERNAL SCAN | | 07/07/2017 | | Results for this | | | | 12:00 AM | | procedure are in the | | | | PDT | | results section. | + +--------+ + + + documented in this encounter Results LABS - EXTERNAL SCAN (07/07/2017 12:00 AM PDT) + + + | Narrative | Performed At | + + + | Ordered by an | | | unspecified provider. | | + + + documented in this encounter Visit Diagnoses + + | Diagnosis | + + | Centrilobular emphysema (HCC) - Primary | + + | Hypoxemia | + + documented in this encounter
--- OUTSIDE RECORDS SUMMARY | ~2019-12-11 | XMS | Encounter Summary ---
Demographics + + + | Address | [address] | | | [place] [address] | + + + | Home Phone | | + + + | Preferred Language | Unknown | + + + | Marital Status | Single | + + + | Catholic Affiliation | Unknown | + + + | Race | White | + + + | Ethnic Group | Not or | + + + Author + + + | Author | [facility] | | | and [place] | + + + | Organization | [facility] | | | and [...] Team Providers + +------+ + | Care Corporate Trainer Name | Role | Phone | + +------+ + | David Arias MD | PCP | | + +------+ + Reason for Visit + + + | Reason | Comments | + + + | Wound Check | loop recorder implantation | + + + Encounter Details +--------+ + + + + | Date | Type | Department | Care Team | Description | +--------+ + + + + | 12/01/ | Clinical | [facility] | Pooja Owens, | Tachycardia (Primary | | 2013 | Support | CARDIOLOGY [address] [facility] | Dx); Status post | | | | [place], | [place], | placement of | | | | [place] [address] | [place] [address] | implantable loop | | | | [phone] | [phone] | [id number] | | | | | | 11/24/13 | +--------+ + + + + Social [...] this encounter Last Filed Vital Signs + +---------+ + + | Vital Sign | Reading | Time Taken | Comments | + +---------+ + + | Blood Pressure | 132/88 | 12/01/2013 3:27 PM | | | | | PDT | | + +---------+ + + | Pulse | 72 | 12/01/2013 3:27 PM | | | | | PDT | | + +---------+ + + | Temperature | - | - | | + +---------+ + + | Respiratory Rate | - | - | | + +---------+ + + | Oxygen Saturation | - | - | | + +---------+ + + | Inhaled Oxygen | - | - | | | Concentration | | | | + +---------+ + + | Weight | - | - | | + +---------+ + + | Height | - | - | | + +---------+ + + | Body Mass Index | - | - | | + +---------+ + + documented in this encounter Progress Notes Clarice Madrigal RN - 12/01/2013 3:28 PM Martir was here today for a one week wound c heck after loop recorder implantation. She was very upset at the beginning of the visit. Mode oakley stated that she would "never have another surgery at [facility] ever again". She reports t hat her procedure was delayed for about 2-3 hours after the original time and then they told her that the normal sedation nurse had to go home to prevent overtime. She states that she felt like she was sedated enough to not be able to speak well but not enough that she felt everything. She was given the quality management directors number and advised to call. She was also upset that she did not know how to use the device that was implanted in her. DAVID Burrows was brought in and she was able to educate Priscila on the workings of the dev ice and how to artemio an episode and when to call to come in for a check. She was able to act ually download her device today and reassure her that the episode that she had last was not an abnormal rhythm. Priscila denies fever, palpitations, dizziness, or lightheadedn ess. She did have chest pain last for which she did go to ER in [place]. She do es have shortness of breath but states this is unchanged from prior to implant. She only anne s a cell phone but is going to look into getting a land line and will let us know. In the we have set her up to come to the office in about one month for download and she is advised that she can come sooner if needed. Her incision is well approximated and appears t o be healing well. There is mild swelling and moderate bruising to the underside of the marleni st. ...........................................Clarice Madrigal RN on 12/01/2013 at 15:35 documented in this encounter Plan of Treatment Not on filedocumented as of this encounter Visit Diagnoses + + | Diagnosis | + + | Tachycardia - Primary Tachycardia, unspecified | + + | Status post placement of implantable loop [id number]/20/14 | + + documented in this encounter
--- OUTSIDE RECORDS SUMMARY | ~2019-12-11 | XMS | Encounter Summary ---
Demographics + + + | Address | [address] | | | [place] [address] | + + + | Home Phone | | + + + | Preferred Language | Unknown | + + + | Marital Status | Single | + + + | Worship Affiliation | Unknown | + + + | Race | White | + + + | Ethnic Group | Not or | + + + Author + + + | Author | [facility] | | | and [place] | + + + | Organization | [facility] | | [...] Providers + +------+ + | Care Insurance Account Assistant Name | Role | Phone | + +------+ + PCP | Unavailable | + +------+ + Encounter Details +--------+ + + + + | Date | Type | Department | Care Team | Description | +--------+ + + + + | 10/10/ | Hospital | [facility] | Oracio Albert | | | 2010 | Encounter | MED CTR SLEEP | MD Letitia [address] | | | | | [facility] [address] | [address] [place] | | | | | [place], [place] | [place] [address] | | | | | [address] | [phone] | | | | | [phone] | | | +--------+ + + + [...] + + +---------+ + + | | 2 puffs inhaled | | 0 | 01/11/20 | | | albuterol-ipratropiu | every 4 hours as | | | 11 | 2 | | m (COMBIVENT) 103-18 | needed for shortness | | | | | | mcg/puff inhaler | of breath | | | | | + + + +---------+ + + documented as of this encounter Miscellaneous Notes Sleep Disorders - Oracio Albert Jr., MD - 01/14/2011 2:52 PM PDTDATE: 01/14/2011 cc: [facility] Sleep Center Oracio Albert Jr., MD, [facility] DIAGNOSTIC NOCTURNAL POLYSOMNOGRAM CLINICAL INFORMATION: This is a 70-year-old female, who underwent diagnostic nocturnal poly somnograph y on 01/14/2011. She is referred for sleep evaluation by Dr. Owens. The cesar ent is being evaluate d for chest pain and dyspnea. She likely has COPD, but also has a his tory of snoring. Bedtime is typi cecilia 7:30 in the evening, with wake time of 5 in the morn ing. She estimates sleep latency of 1-1/2 h ours. She has nocturia 3 times a night, and she is known to snore. She has fatigue in the daytime. FINDINGS: Prior to the study, the patient scored 4 points on the [place] Sleepiness Scale, which does not endorse a high degree of recognized excessive daytime sleepiness. The patien t reported this to b e a usual nights sleep. SLEEP ARCHITECTURE: Lights out was recorded at 9:45 p.m. Lights on was recorded at 5:41 a.m . The late ncy to sleep onset was normal at 19.5 minutes. The patient slept for 401.5 minut es out of 475.5 minut es of study time. The sleep efficiency is mildly reduced for first ni ght in the laboratory at 84.4%. The amount of N1 sleep was normal at 5.2% of the evening. T he amount of N2 sleep was normal at 63.3% of the evening. The amount of N3 sleep was reduce d at 0.8% of the evening. The amount of rapid eye mo vement sleep was normal at 19% of the evening. The latency to rapid eye movement sleep was prolonged at 284.5 minutes. The patient spent 20.6% of the evening in the left lateral decubitus position. She spent 28 % of the e vening in the right lateral decubitus position. She spent 51.3% of the evening i n the supine position . Sleep was fragmented. The arousal index was elevated at 42.9. CARDIOPULMONARY MONITORING: The heart rate averaged in the 70s, and fundamentally was a sin us rhythm. During the course of the evening, there were 37 obstructive apneas. There were 37 mixed water treatment plant mechanic eas. There were 10 central apneas. There were 25 hypopneas, there were 13 respiratory effor t-related arousals. The respiratory disturbance index is elevated at 18.2. The apnea-hypopn ea index is elevated at 16.3. The apnea index is elevated at 12.6. Of the apneas, the major ity of the apneas were central or mixed apneas. The respiratory events occasioned significa nt sleep fragmentation, and the respiratory arousa l index was elevated at 17. The respirat ory events were also primarily seen in the supine position. T he supine respiratory disturb ance index was 33.8. The nonsupine was 1.8. This positional preponderanc e of the respirato ry events in the supine position, suggests that the mixed apneas and central apneas reflect ed similar underlying pathophysiology as obstructive apneas in this patient. The respiratory events did occasion significant oxygen desaturation. John saturation was 8 3%. The pa kendal spent 34.5 minutes with an oxygen saturation of under 88%. LIMB MOVEMENT MONITORING: There were 517 periodic limb movements. The PLMS index is elevate d 77.3, 16 6 periodic limb movements were associated with arousals. The PLMS arousal index is elevated at 24.8. CARDIAC: Heart rate averaged in the 70s and fundamentally was a sinus rhythm without signif icant arrh ythmias noted. INTERPRETATION: This is an abnormal nocturnal polysomnogram secondary to: 1. 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 This is associated with s igni ficant sleep fragmentation and significant oxygen desaturation. The respiratory events were prima rily seen in the supine position. They were also more frequently seen in rapid eye mo vement sleep. Ox ygen desaturations were much more common in rapid eye movement sleep. 2. 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 SUGGESTIONS 1. The principles of sleep hygiene should, of course, be reviewed with the patient. 2. The rapy for apnea is strongly advised, in view of the sleep fragmentation, as well as oxygen de sat uration. 3. Ferritin level should be checked. If it is less than 50, iron supplementation should be offered. I f the patient's complaints do not improve with the treatment of obstructive and central sleep apnea, then one may wish to consider pharmacologic intervention for periodic limb movements of sleep. Oracio Albert Jr., MD, FAASM Diplomate [employer] Diplomate in Sleep Medicine Hydraulics Engineer, [facility] Clinical Neurology Specialist [facility] JOB #: [id number] EXT JOB #:[id number] EDITED: 01/31/2011 12:26 <Electronically Signed by Oracio Albert MD> 01/31/11 134 documented in this encounter Plan of Treatment Not on filedocumented as of this encounter Visit Diagnoses Not on filedocumented in this encounter"
--- OUTSIDE RECORDS SUMMARY | ~2019-12-11 | XMS | Encounter Summary ---
Demographics + + + | Address | [address] | | | [place] [address] | + + + | Home Phone | | + + + | Preferred Language | Unknown | + + + | Marital Status | Single | + + + | Jew Affiliation | OTH | + + + | Race | White | + + + | Ethnic Group | Not or | + + + Author + + + | Author | [facility] | + + + | Organization | [facility] | + + + | Address | Unknown | + + + | Phone | Unavailable | + + + Support + + +---------+ + | Name | Relationship | Address | Phone | + + +---------+ + | Osorio Bourgeois | ECON | Unknown | Unavailable | + + +---------+ + Care Team Providers + +------+ + | Care Inspector Watch Assembly Name | Role | Phone | + [...] Description | +--------+---------+ + + + | 10/13/ | Surgery | [address] | Oleksandr Haddad, | LEFT REVISION TOTAL | | 2011 | | [address] | MD [address] | ETHMOIDECTOMY, LEFT | | | | [facility] | [facility] [place] | FRONTAL SINUSOTOMY, | | | | Ambulatory Surgery | [address] | IMAGE GUIDANCE | | | | Admitting Desk | [phone] | [facility] | | | | Located on the 4th | | FUSION | | | | floor, Room [facility] | | | | | | [place], [place] | | | | | | [address] | | | +--------+---------+ + + + Social History + +-------+ +--------+ + [...] + + + documented in this encounter Discharge Instructions Instructions Zainab Berry RN - 10/14/2011Remember You are under the influence of medications. DO NOT drive, drink alcohol, sign legal documen ts or make major decisions for at least 24 hours and while taking narcotics. Diet and Medications You may return to your normal diet and take your normal medications unless otherwise instru cted by your physician. documented in this encounter Medications at Time of Discharge + + + +---------+ + + | Medication | Sig | Dispensed | Refills | Start | End Date | | | | | | Date | | + + + +---------+ + + | | Inhale 2 Puffs four | | 0 | | | | albuterol-ipratropiu | times daily as | | | | | | m (COMBIVENT) 18-103 | needed. | | | | | | mcg/actuation | | | | | | | Inhalation Aerosol, | | | | | | | [place] | | | | | | + + + +---------+ + + | clarithromycin | Take 1 Tab by mouth | 14 Tab | 0 | 09/26/19 | | | (BIAXIN) 500 mg Oral | every twelve hours. | | | 12 | | | Tablet | Please start the day | | | | | | | after surgery. | | | | | + + + +---------+ + + | DICLOFENAC | Take by mouth. | | 0 | | | | SODIUM/MISOPROSTOL | | | | | | | (ARTHROTEC 50 ORAL) | | | | | | + + + +---------+ + + | fluticasone | Instill 2 Sprays | | 0 | | | | (FLONASE) 50 | into each nostril | | | | | | mcg/actuation Nasal | once daily. | | | | | | [place], Suspension | | | | | | + + + +---------+ + + | FOLIC | Take by mouth. | | 0 | | | | ACID/MV,FE,OTHER MIN | | | | | | | (CENTRUM ORAL) | | | | | | + + + +---------+ + + | | Take 1-2 Tabs by | 30 Tab | 0 | 10/14/19 | | | HYDROcodone-acetamin | mouth every four | | | 12 | | | ophen (VICODIN) | hours as needed. Not | | | | | | 5-500 mg Oral [...] hour period.) | | | | | + + + +---------+ + + | methylPREDNISolone | Follow package | 1 | 0 | 09/26/19 | | | (MEDROL, UZIEL,) 4 mg | directions. Please | Package | | 12 | | | Oral Tablets, Dose | start the day after | | | | | | Pack | surgery. | | | | | + + + +---------+ + + | tiotropium | Inhale 18 mcg once | | 0 | | | | (SPIRIVA WITH | daily. | | | | | | HANDIHALER) 18 mcg | | | | | | | Inhalation Capsule, | | | | | | | w/Inhalation Device | | | | | | + + + +---------+ + + documented as of this encounter H&P Trudy Vale [facility] - 10/16/2011 2:34 PM PDTElectronically signed by Faculty Other at 2 2:34 PM PDTdocumented in this encounter Procedure Notes Akanksha Faculty - 01/23/2012 1:57 PM PDTAssociated Order(s): RADIOLOGY kanksha Faculty - 10/16/2011 2:34 PM PDTAssociat ed Order(s): PROCEDURE NOTE Akanksha Faculty - 10/16/2011 2:34 PM PDTAssociated Order(s): PROCEDURE NOTEElectronically si gned by Faculty Other at 10/16/2011 2:34 PM Oleksandr Heredia MD - 10/15/2011 9:33 AM P DTAssociated Order(s): OPERATION RECORD [id number] [facility] oBb [id number] Date: 10/14/2011 Attending Surgeon: Oleksandr Haddad MD, MPH, FACS Shearing Machine Feeder(s): Preoperative Diagnosis(es): 1. Chronic maxillary sinusitis. 2. Chronic ethmoid sinusitis. 3. Chronic frontal sinusitis. 4. 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 Postoperative Diagnosis(es): 1. Chronic maxillary sinusitis. 2. Chronic ethmoid sinusitis. 3. Chronic frontal sinusitis. 4. 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 Procedures Performed: 1. Left endoscopic maxillary antrostomy. 2. Left endoscopic partial ethmoidectomy. 3. Left endoscopic frontal sinusotomy. 4. CT stereotactic navigational surgery. Findings: The patient had a somewhat hypoplastic left frontal sinus with complete obstruction of the sinus and trapped mucus secretions within the hypoplastic sinus. The left sinus contents were sent for pathologic evaluation. Culture was also obtained and sent for evaluation. Estimated Blood Loss: Less than 100 cc. Complications: None apparent. Procedure: The patient was identified in the holding area and taken to the operating room, where she was placed in supine position and induced under general inhalational anesthesia per Anesthesiology. A formal surgical pause was held, and all aspects were addressed. The CT stereotactic navigational surgical system was placed about the patient's head, registered to appropriate level of accuracy and verified using known anatomic landmarks. It was used throughout the case to help identify critical structures including the orbit and cranial base, given the significant hypoplasia of the left frontal sinus, the bone erosion associated with the frontal sinus and frontal recess. Specimens: Left sinus contents sent for pathologic evaluation. Estimated blood loss less than 100 cc. Procedure: The patient was identified in the holding area and taken to the operating room, where she was placed in the supine position and induced under general inhalational anesthesia per Anesthesiology. A formal surgical pause was held, and all aspects were addressed. The CT stereotactic navigational surgical system was placed about the patient's head, registered to appropriate level of accuracy, and verified using known anatomic landmarks. It was used throughout the case to help identify critical structures. The nose was topically decongested with 1:1000 adrenaline on neuro pledgets. Injections were performed along the left lateral nasal wall. 0- and 30-degree endoscopes were used as indicated throughout the procedure. The middle turbinate was carefully medialized. The uncinate process was taken down. The natural ostium of maxillary sinus identified and enlarged posteriorly to create antrostomy. The ethmoid bulla was taken down to the lamina papyracea into the basal lamella of the middle turbinate. Superiorly the frontal recess was identified. The superior aspect of the uncinate process was carefully reflected anteriorly. The face of the bulla was taken down. The agger nasi cell was identified. The posterior medial wall of the agger nasi cell was completely taken down with through-cutting instruments. The supra bulla recess was identified. An area of extremely small opening of the frontal outflow was identified. This appeared to be covered by a membrane which was punctured. Outflow of mucopurulent secretions was identified and cultured. The frontal ostium was then enlarged to as large as possible degree in this very hypoplastic frontal sinus. The sinus was then copiously irrigated to remove all debris. All debris was removed from the nasal cavity, nasopharynx, oral cavity, and oropharynx. Excellent hemostasis was noted. The patient was returned to the care of Anesthesia for awakening. Oleksandr Haddad MD, MPH, FACS Director, [facility] Professor of Otolaryngology/Head and Neck Surgery [facility] / [id number] / [id number] / [id number] / documented in this encounter Miscellaneous Notes Scan - Other, Faculty - 10/16/2011 3:21 PM PDTElectronically signed by Faculty Other at 3:21 PM PDTScan - Other, Faculty - 10/16/2011 2:34 PM PDT can - Other, Faculty - 10/16/2011 2:34 PM PDTElec tronically signed by Faculty Other at 10/16/2011 2:34 PM PDTdocumented in this encounter Plan of Treatment Not on filedocumented as of this encounter Procedures + +--------+ + + + | Procedure Name | Priori | Date/Time | Associated Diagnosis | Comments | | | ty | | | | + +--------+ + + + | PROCEDURE NOTE | Routin | 05/12/2015 | | Results for this | | | e | 1:59 AM | | procedure are in the | | | | PST | | results section. | + +--------+ + + + | PROCEDURE NOTE | Routin | 05/12/2015 | | Results for this | | | e | 1:59 AM | | procedure are in the | | | | PST | | results section. | + +--------+ + + + | OPERATION RECORD | | 10/15/2011 | | Results for this | | | | 1:07 PM | | procedure are in the | | | | PDT | | results section. | + +--------+ + + + | VARSHA CAREY | Routin | 10/14/2011 | | Results for this | | & GS | e | 12:07 PM | | procedure are in the | | | | PDT | | results section. | + +--------+ + + + | (INACTIVE) | Electi | 10/14/2011 | Chronic maxillary | | | ENDOSCOPY SINUS | ve | 10:53 AM | sinusitis Chronic | | | FRONTAL TREPHINATION | Surgic | PDT | ethmoidal sinusitis | | | | al | | Other diseases of | | | | | | nasal cavity and | | | | | | sinuses | | + +--------+ + + + | ETHMOIDECTOMY WITH | Electi | 10/14/2011 | Chronic maxillary | | | IMAGE GUIDANCE | ve | 10:53 AM | sinusitis Chronic | | | | Surgic | PDT | ethmoidal sinusitis | | | | al | | Other diseases of | | | | | | nasal cavity and | | | | | | sinuses | | + +--------+ + + + | 12 LEAD ECG | Routin | 10/14/2011 | | Results for this | | | e | 10:32 AM | | procedure are in the | | | | PDT | | results section. | + +--------+ + + + | RADIOLOGY | | 10/14/2011 | | Results for this | | | | 12:00 AM | | procedure are in the | | | | PDT | | results section. | + +--------+ + + + | SURGICAL PATHOLOGY | Routin | 10/14/2011 | | Results for this | | | e | | | procedure are in the | | | | | | results section. | + +--------+ + + + documented in this encounter Results PROCEDURE NOTE (05/12/2015 1:59 AM PST) + + | Transcriptions | + + | Other, Faculty - 10/16/2011 2:34 PM PDT | + + PROCEDURE NOTE (05/12/2015 1:59 AM PST) + + | Transcriptions | + + | Other, Faculty - 10/16/2011 2:34 PM PDT | + + OPERATION RECORD (10/15/2011 1:07 PM PDT) + + | Transcriptions | + + | Oleksandr Haddad MD - 10/15/2011 9:33 AM PDT [id number] | | [id number] MIRTHA | | NATALY Rojas [id number] Date: 10/14/2011 Attending Surgeon: | | Oleksandr Haddad MD, MPH, FACS Shearing Machine Feeder(s): Preoperative Diagnosis(es):1. | | Chronic maxillary sinusitis.2. Chronic ethmoid sinusitis.3. Chronic frontal | | sinusitis.4. 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 Postoperative | | Diagnosis(es):1. Chronic maxillary sinusitis.2. Chronic ethmoid sinusitis.3. | | Chronic frontal sinusitis.4. 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 | | Procedures Performed:1. Left endoscopic maxillary antrostomy.2. Left endoscopic | | partial ethmoidectomy.3. Left endoscopic frontal sinusotomy.4. CT stereotactic | | navigational surgery. Findings:The patient had a somewhat hypoplastic left frontal | | sinus with completeobstruction of the sinus and trapped mucus secretions within | | thehypoplastic sinus. The left sinus contents were sent for pathologicevaluation. | | Culture was also obtained and sent for evaluation. Estimated Blood Loss:Less than 100 | | cc. Complications:None apparent. Procedure:The patient was identified in the holding | | area and taken to the operatingroom, where she was placed in supine position and induced | | under generalinhalational anesthesia per Anesthesiology. A formal surgical pause | | washeld, and all aspects were addressed. The CT stereotactic navigationalsurgical | | system was placed about the patient's head, registered toappropriate level of accuracy | | and verified using known anatomic landmarks.It was used throughout the case to help | | identify critical structuresincluding the orbit and cranial base, given the significant | | hypoplasia ofthe left frontal sinus, the bone erosion associated with the frontal | | sinusand frontal recess. Specimens:Left sinus contents sent for pathologic evaluation. | | Estimated blood lossless than 100 cc. Procedure:The patient was identified in the | | holding area and taken to the operatingroom, where she was placed in the supine position | | and induced under generalinhalational anesthesia per Anesthesiology. A formal surgical | | pause washeld, and all aspects were addressed. The CT stereotactic | | navigationalsurgical system was placed about the patient's head, registered | | toappropriate level of accuracy, and verified using known anatomic landmarks.It was used | | throughout the case to help identify critical structures. Thenose was topically | | decongested with 1:1000 adrenaline on neuro pledgets.Injections were performed along the | | left lateral nasal wall. 0- [id number]-baxowu endoscopes were used as indicated throughout | | the procedure. Themiddle turbinate was carefully medialized. The uncinate process was | | [place]. The natural ostium of maxillary sinus identified and enlargedposteriorly to | | create antrostomy. The ethmoid bulla was taken down to thelamina papyracea into the | | basal lamella of the middle turbinate.Superiorly the frontal recess was identified. The | | superior aspect of theuncinate process was carefully reflected anteriorly. The face of | | the bullawas taken down. The agger nasi cell was identified. The posterior medialwall | | of the agger nasi cell was completely taken down with through-cuttinginstruments. The | | supra bulla recess was identified. An area of extremelysmall opening of the frontal | | outflow was identified. This appeared to becovered by a membrane which was punctured. | | Outflow of mucopurulentsecretions was identified and cultured. The frontal ostium was | | thenenlarged to as large as possible degree in this very hypoplastic frontalsinus. The | | sinus was then copiously irrigated to remove all debris. Alldebris was removed from the | | nasal cavity, nasopharynx, oral cavity, andoropharynx. Excellent hemostasis was noted. | | The patient was returned tothe care of Anesthesia for awakening. Oleksandr Haddad, | | , MPH, FACSDirector, [facility] CenterProfessor of Otolaryngology/Head and Neck | | Surgery [facility] / [id number] / [id number] / [id number] / T: 10/14/2011 | |Less than 100 cc. | | | | | |Complications: | |None apparent. | | | | | |Procedure: | |The patient was identified in the holding area and taken to the operating | |room, where she was placed in supine position and induced under general | |inhalational anesthesia per Anesthesiology. A formal surgical pause was | |held, and all aspects were addressed. The CT stereotactic navigational | |surgical system was placed about the patient's head, registered to | |appropriate level of accuracy and verified using known anatomic landmarks. | |It was used throughout the case to help identify critical structures | |including the orbit and cranial base, given the significant hypoplasia of | |the left frontal sinus, the bone erosion associated with the frontal sinus | |and frontal recess. | | | | | |Specimens: | |Left sinus contents sent for pathologic evaluation. Estimated blood loss | |less than 100 cc. | | | | | |Procedure: | |The patient was identified in the holding area and taken to the operating | |room, where she was placed in the supine position and induced under general | |inhalational anesthesia per Anesthesiology. A formal surgical pause was | |held, and all aspects were addressed. The CT stereotactic navigational | |surgical system was placed about the patient's head, registered to | |appropriate level of accuracy, and verified using known anatomic landmarks. | |It was used throughout the case to help identify critical structures. The | |nose was topically decongested with 1:1000 adrenaline on neuro pledgets. | |Injections were performed along the left lateral nasal wall. 0- and | |30-degree endoscopes were used as indicated throughout the procedure. The | |middle turbinate was carefully medialized. The uncinate process was taken | |down. The natural ostium of maxillary sinus identified and enlarged | |posteriorly to create antrostomy. The ethmoid bulla was taken down to the | |lamina papyracea into the basal lamella of the middle turbinate. | |Superiorly the frontal recess was identified. The superior aspect of the | |uncinate process was carefully reflected anteriorly. The face of the bulla | |was taken down. The agger nasi cell was identified. The posterior medial | |wall of the agger nasi cell was completely taken down with through-cutting | |instruments. The supra bulla recess was identified. An area of extremely | |small opening of the frontal outflow was identified. This appeared to be | |covered by a membrane which was punctured. Outflow of mucopurulent | |secretions was identified and cultured. The frontal ostium was then | |enlarged to as large as possible degree in this very hypoplastic frontal | |sinus. The sinus was then copiously irrigated to remove all debris. All | |debris was removed from the nasal cavity, nasopharynx, oral cavity, and | |oropharynx. Excellent hemostasis was noted. The patient was returned to | |the care of Anesthesia for awakening. | | | | | | | | | |Oleksandr Haddad MD, MPH, FACS | |Director, [facility] | |Professor of Otolaryngology/Head and Neck Surgery | | | | | |TLS / HS | |[id number] / [id number] / [id number] / | | | | | | | | | | | | | | | | | | | | | + + CULTURE, SINUS BACTI & GS (10/14/2011 12:07 PM PDT) + + + + + + | Component | Value | Ref Range | Performed | Pathologist | | | | | At | Signature | + + + + + + | SOURCE BODY | Left frontal sinus, [place] | | [facility] | | | SITE | sample | | [facility] | | | | | | LAB-MICRO | | + + + + + + | CULTURE | Sinus Culture | | [facility] | | | RESULT | | | [facility] | | | | Source...............: | | LAB-MICRO | | | | Left frontal sinus, [place] | | | | | | sample RLB Gram | | | | | | Stain...........: Rare | | | | | | Squamous epithelial | | | | | | cells | | | | | | | | | | | | No PMN's | | | | | | | | | | | | No organisms seen. | | | | | | Culture: 1+ | | | | | | Coagulase negative | | | | | | Staphylococcus species | | | | | | Final ID | | | | | | No anaerobes | | | | | | isolated | | | | | | Staph | | | | | | neg Cefazolin | | | | | | R Clindamycin | | | | | | R | | | | | | Erythromycin | | | | | | R Oxacillin | | | | | | R Tetracycline | | | | | | S | | | | | | Trimeth/Sulfa | | | | | | R Vancomycin | | | | | | S Final Report | | | | + + + + + + + + | Specimen | + + | | + + + + + + + | Performing | Address | City/State/Zipcode | Phone Number | | Organization | | | | + + + + + | [facility] | [address] | [place] [address] | | | LAB-MICRO | | | | + + + + + 12 LEAD ECG (10/14/2011 10:32 AM PDT) + + + + + + | Component | Value | Ref Range | Performed | Pathologist | | | | | At | Signature | + + + + + + | VENTRICULAR | 76 | BPM | [facility] | | | RATE | | | OF | | | | | | CARDIOLOGY | | + + + + + + | ATRIAL RATE | 76 | BPM | [facility] | | | | | | OF | | | | | | CARDIOLOGY | | + + + + + + | P-R | 142 | ms | [facility] | | | INTERVAL | | | OF | | | | | | CARDIOLOGY | | + + + + + + | QRS | 92 | ms | [facility] | | | DURATION | | | OF | | | | | | CARDIOLOGY | | + + + + + + | QT | 396 | ms | [facility] | | | | | | OF | | | | | | CARDIOLOGY | | + + + + + + | QTC | 445 | ms | [facility] | | | | | | OF | | | | | | CARDIOLOGY | | + + + + + + | P AXIS | 71 | degrees | [facility] | | | | | | OF | | | | | | CARDIOLOGY | | + + + + + + | R AXIS | 2 | degrees | [facility] | | | | | | OF | | | | | | CARDIOLOGY | | + + + + + + | T AXIS | 20 | degrees | [facility] | | | | | | OF | | | | | | CARDIOLOGY | | + + + + + + | EKG | Normal sinus | | [facility] | | | DIAGNOSIS | rhythmNormal | | OF | | | | ECGConfirmed by | | CARDIOLOGY | | | | TJ ROMERO | | | | | | ([id number]) on 10/15/2011 | | | | | | 11:13:32 AM | | | | + + + + + + + + | Specimen | + + | | + + + + + | Narrative | Performed At | + + + | Please click | [facility] | | on view image for the detailed interpretation from [employer] results. | CARDIOLOGY | + + + + + + + + | Performing | Address | City/State/Zipcode | Phone Number | | Organization | | | | + + + + + | [facility] | [address] | [place], [place] | | | CARDIOLOGY | [address] | [address] | | + + + + + SURGICAL PATHOLOGY (10/14/2011) + + + + + + | Component | Value | Ref Range | Performed | Pathologist | | | | | At | Signature | + + + + + + | SURGICAL | SOURCE OF SPECIMEN:A | | [facility] | | | PATHOLOGY | Left sinus contents | | DEPARTMENT | | | | Final Pathologic | | OF | | | | Diagnosis:Left sinus | | PATHOLOGY | | | | contents, scrapping: | | | | | | - Benign mucous | | | | | | glands with mild chronic | | | | | | inflammation Case | | | | | | seen by:Gurvinder | | | | | | Jonah, | | | | | | MFreddy/Surgical Pathology | | | | | | Maida Landry, | | | | | | M.D./PathologistT: | | | | | | 2/rdl Clinical | | | | | | History:The patient is a | | | | | | 71-year-old female. | | | | | | Gross | | | | | | Description:Received is | | | | | | 1 specimen fresh in a | | | | | | container labeled with | | | | | | the patient | | | | | | name(initials BT) and | | | | | | "left sinus contents." | | | | | | Received are | | | | | | [id number] | | | | | | us, galeas tissues | | | | | | measuring 0.5 x 0.3 x | | | | | | 0.2 cm in aggregate.The | | | | | | specimen is filtered, | | | | | | wrapped, and entirely | | | | | | submitted. | | | | | | Cassette Index:A1, | | | | | | wrappedKRK:tp My | | | | | | electronic signature | | | | | | indicates that I have | | | | | | personally reviewed | | | | | | alldiagnostic slides, | | | | | | the gross and/or | | | | | | microscopic portion of | | | | | | thisreport and | | | | | | formulated the final | | | | | | diagnosis. | | | | | | Rendering Diagnostician: | | | | | | Carina Landry | | | | | | MFreddyPathologistElectroni | | | | | | cecilia Signed 10/16/2011 | | | | | | 10:31AM | | | | + + + + + + + + | Specimen | + + | | + + + + + + + | Performing | Address | City/State/Zipcode | Phone Number | | Organization | | | | + + + + + | [facility] | [address] | [place] [address] | | | PATHOLOGY | [address] | | | + + + + + RADIOLOGY (10/14/2011 12:00 AM PDT) + + + | Narrative | Performed At | + + + | | | | | | + + + + + | Procedure Note | + + | Tyrel Vale - 01/23/2012 1:57 PM PDT | + + documented in this encounter Visit Diagnoses + + | Diagnosis | + + | Chronic maxillary sinusitis | + + | Chronic ethmoidal sinusitis | + + | Other diseases of nasal cavity and sinuses(478.19) Other diseases of nasal cavity and | | sinuses | + + documented in this encounter Administered Medications + +--------+ +-------+------+------+ | Medication Order | MAR | Action | Dose | Rate | Site | | | Action | Date | | | | + +--------+ +-------+------+------+ | EPINEPHrine (aka ADRENALIN) | Given | 10/14/19 | 30 mL | | Nose | | injection INTRAPROCEDURE PRN, | | 12 12:29 | | | | | Starting Fri10/14/11 at 1229, | | PM PDT | | | | | Until Fri10/14/11 at 1234 | | | | | | + +--------+ +-------+------+------+ +---+---+ | | | +---+---+ + +-------+ +---------+---+---+ | HYDROcodone-acetaminophen (aka | Given | 10/14/19 | 2 | | | | NORCO) 5-325 mg tablet 1-2 Tab | | 12 2:32 | tablets | | | | 1-2 tablet, oral, EVERY 4 HOURS | | PM PDT | | | | | NEEDED, Starting Fri10/14/11 at | | | | | | | 1248, Until Fri10/14/11 at 2127, | | | | | | | pain | | | | | | + +-------+ +---------+---+---+ +---+---+ | | | +---+---+ + +---------+ + + +---+ | lactated ringers IV 10 mL/hr, | New Bag | 07/09/20 | 10 mL/hr | 10 mL/hr | | | intravenous, PROCEDURE | | 12 9:40 | | | | | CONTINUOUS, Starting Fri10/14/11 | | AM PDT | | | | | at 0945, Until Fri10/14/11 at 2126 | | | | | | + +---------+ + + +---+ +---+---+ | | | +---+---+ + +-------+ +--------+---+---+ | lidocaine (aka XYLOCAINE) 10 | Given | 10/14/19 | 500 mg | | | | mg/mL (1 %) injection | | 12 9:40 | | | | | subcutaneous, PREPROCEDURE PRN, | | AM PDT | | | | | Starting Fri10/14/11 at 0932, | | | | | | | Until Fri10/14/11 at 2126, IV | | | | | | | start | | | | | | + +-------+ +--------+---+---+ +---+---+ | | | +---+---+ + +-------+ +-------+---+------+ | lidocaine-EPINEPHrine (aka | Given | 10/14/19 | 10 mL | | Nose | | XYLOCAINE-MPF WITH EPINEPHRINE) | | 12 12:27 | | | | | 1.5 %-1:200,000 injection | | PM PDT | | | | | INTRAPROCEDURE PRN, Starting Mon | | | | | | | 10/14/11 at 1227, Until Fri10/14/11 | | | | | | | at 1234 | | | | | | + +-------+ +-------+---+------+ +---+---+ | | | +---+---+ + +-------+ + +---+---+ | oxymetazoline (aka AFRIN) 0.05 | Given | 10/14/19 | 2 sprays | | | | % nasal spray 2 [place] 2 spray, | | 12 10:45 | | | | | both nostrils, EVERY 15 MINUTES, | | AM PDT | | | | | First dose on Fri10/14/11 at 0945, | | | | | | | Until Discontinued | | | | | | + +-------+ + +---+---+ +-------+ + +---+---+ | Given | 10/14/19 | 2 sprays | | | | | 12 10:30 | | | | | | AM PDT | | | | +-------+ + +---+---+ | Given | 10/14/19 | 2 sprays | | | | | 12 10:15 | | | | | | AM PDT | | | | +-------+ + +---+---+ + +---+ | | | + +---+ | oxymetazoline (aka AFALIREZA) 0.05 | | | % nasal spray 1 dose, Starting | | | 10/14/11 at 0941, Until Mon | | | 10/14/11 at 0943 | | + +---+ | | | + +---+ documented in this encounter
--- OUTSIDE RECORDS SUMMARY | ~2019-12-11 | XMS | Encounter Summary ---
Demographics + + + | Address | [address] | | | [place] [address] | + + + | Home Phone [...] + + + | Author | [facility] | | | and [place] | + + + | Organization | [facility] | | [...] Team Providers + +------+ + | Care Pneumatic Tester Name | Role | Phone | + +------+ + | David Arias MD | PCP | | + +------+ + Encounter Details +--------+ + + + + | Date | Type | Department | Care Team | Description | +--------+ + + + + | 08/02/ | Abstract | [facility] | Sayda, | | | 2013 | | CARDIOLOGY [address] | Alem RESIDENT INSPECTOR [address] | | | | | [place], | [place], | | | | | [place] [address] | [place] [address] | | | | | [phone] | [phone] | | | | | | | [...] | EXTERNAL LAB: CBC | Routin | 06/03/2013 | | Results for this | | | e | 2:20 PM | | procedure are in the | | | | PST | | results section. | + +--------+ + + + | RULE OUT MYOCARDIAL | Routin | 06/03/2013 | | Results for this | | INFARCTION | e | | | procedure are in the | | | | | | results section. | + +--------+ + + + | CBC WITH | Routin | 06/03/2013 | | Results for this | | DIFFERENTIAL | e | | | procedure are in the | | | | | | results section. | + +--------+ + + + documented in this encounter Results External Lab: CBC (06/03/2013 2:20 PM PST) + +---------+ + + + | Component | Value | Ref Range | Performed | Pathologist | | | | | At | Signature | + +---------+ + + + | WBC, | 9.0 | 4.5 - 11 | EXTERNAL | | | External | | | LAB | | + +---------+ + + + | HGB, | 12.4 | 12 - 15 | EXTERNAL | | | External | | | LAB | | + +---------+ + + + | HCT, | 37.1 | 35 - 45 | EXTERNAL | | | External | | | LAB | | + +---------+ + + + | PLT, | 814 (A) | 140 - 440 | EXTERNAL | | | External | | | LAB | | + +---------+ + + + + + | Resulting Agency Comment | + + | [facility] | + + + +---------+ + + | Performing | Address | City/State/Zipcode | Phone Number | | Organization | | | | + +---------+ + + | EXTERNAL LAB | | | | + +---------+ + + Rule Out Myocardial (06/03/2013) + + + + + + | Component | Value | Ref Range | Performed | Pathologist | | | | | At | Signature | + + + + + + | Troponin I | 0.01 | ng/mL | [facility] | | | | | [facility] | | | | | | [facility] | | | | [facility] - | | | | | | [facility]ATORY | | + + + + + + | Myoglobin | 27.62 | ng/mL | [facility] | | | | [facility] | | | | | | [facility] | | | | | | [facility] - | | | | | | LABORATORY | | + + + + + + | CK, Total, | 19 (A) | 24 - 170 | [facility] | | | External | | | [facility] | | | | | | [facility] | | | | | | [facility] - | | | | | | LABORATORY | | + + + + + + | CK-MB | 2.4 | ng/mL | [facility] | | | | | | [facility] | | | | | | [facility] | | | | | | [facility] - | | | | | | LABORATORY | | + + + + + + | CK Index | 12.4 (A) | 4.1 | [facility] | | | | | [facility] | | | | | | [facility] | | | | | | [facility] - | | | | | | LABORATORY | | + + + + + + | CKMB, | Negative | | [facility] | | | Total, | | | [facility] | | | External | | | MEDICAL | | | | | | CENTER - | | | | | | LABORATORY | | + + + + + + + + | Specimen | + + | Blood specimen | | (specimen) | + + + + + + + | Performing | Address | City/State/Zipcode | Phone Number | | Organization | | | | + + + + + | [facility] | [address] | [place], [place] | | | [facility] | | [address], [facility] | | | - LABORATORY | | | | + + + + + CBC with Differential (06/03/2013) + +---------+ + + + | Component | Value | Ref Range | Performed | Pathologist | | | | | At | Signature | + +---------+ + + + | RBC | 4.06 | 10*6/uL | | | + +---------+ + + + | MCV | 91.3 | fL | | | + +---------+ + + + | RDW-CV | 14.7 | % | | | + +---------+ + + + | MCH | 31.0 | pg | | | + +---------+ + + + | MCHC | 33.0 | % | | | + +---------+ + + + | % Segmented | 57.4 | % | | | | | | | | | | Neutrophils | | | | | + +---------+ + + + | % | 28.0 | % | | | | Lymphocytes | | | | | + +---------+ + + + | % Monocytes | 10.4 | % | | | + +---------+ + + + | % | 2.0 | % | | | | Eosinophils | | | | | + +---------+ + + + | % Basophils | 2.2 (A) | 0.0 - 2.0 % | | | + +---------+ + + + + + | Specimen | + + | Blood specimen | | (specimen) | + + documented in this encounter Visit Diagnoses Not on filedocumented in this encounter"
--- OUTSIDE RECORDS SUMMARY | ~2019-12-11 | XMS | Encounter Summary ---
Demographics + + + | Address | [address] | | | [place] [address] | + + + | Home Phone | | + + + | Preferred Language | Unknown | + + + | Marital Status | Single | + + + | Mandaen Affiliation | Unknown | + + + | Race | White | + + + | Ethnic Group | Not or | + + + Author + + + | Author | [facility] | | | and [place] | + + + | Organization | [facility] | | | [...] Team Providers + +------+ + | Care Retail Cashier Name | Role | Phone | + +------+ + | David Arias MD | PCP | | + +------+ + Reason for Visit + + + | Reason | Comments | + + + | Medication Refill | | + + + Encounter Details +--------+--------+ + + + | Date | Type | Department | Care Team | Description | +--------+--------+ + + + | 08/15/ | Refill | [facility] | Oleksandr Hyde, | Medication Refill | | 2020 | | PULMONARY [address] | MD [address] | | | | | [place], | [place] | | | | | [place] [address] | [address] | | | | | [phone] | | | +--------+--------+ + + + [...]
--- OUTSIDE RECORDS SUMMARY | ~2019-12-11 | XMS | Encounter Summary ---
Demographics + + + | Address | [address] | | | [place] [address] | + + + | Home Phone | | + + + | Preferred Language | Unknown | + + + | Marital Status | Single | + + + | Christian Affiliation | OTH | + + + | Race | White | + + + | Ethnic Group | Not or | + + + Author + + + | Author | [facility] | + + + | Organization | [facility] | + + + | Address | Unknown | + + + | Phone | Unavailable | + + + Support + + +---------+ + | Name | Relationship | Address | Phone | + + +---------+ + | Osorio Bourgeois | ECON | Unknown | Unavailable | + + +---------+ + Care Team Providers + +------+ + | Care Motion Picture Printer Name | Role | Phone | + +------+ + | David Arias MD | PCP | | + +------+ + Encounter Details +--------+ + + + + | Date | Type | Department | Care Team | Description | +--------+ + + + + | 10/02/ | Documentati | [facility] | Oleksandr Haddad, | | | 2011 | on | Center at [facility] [address] | [address] [facility] | | | | | [facility] | [place], [place] | | | | | for Health and | [address] | | | | | [facility] [address], | [phone] | | | | | [address] [place] [address] | | | | | | [facility] [place] | | | | | | [address] | | | | | | [phone] | | | +--------+ + + + [...]
--- OUTSIDE RECORDS SUMMARY | ~2019-12-11 | XMS | Encounter Summary ---
Demographics + + + | Address | [address] | | | [place] [address] | + + + | Home Phone | | + + + | Preferred Language | Unknown | + + + | Marital Status | Single | + + + | Scientology Affiliation | Unknown | + + + | Race | White | + + + | Ethnic Group | Not or | + + + Author + + + | Author | [facility] | | | and [place] | + + + | Organization | [facility] | | | [...] Team Providers + +------+ + | Care Multicut Line Operator Name | Role | Phone | + +------+ + | David Arias MD | PCP | | + +------+ + Reason for Visit +--------+--------+ + | Reason | Onset | Comments | | | Date | | +--------+--------+ + | Other | 06/02/ | | | | 2020 | | +--------+--------+ + Encounter Details +--------+ + + + + | Date | Type | Department | Care Team | Description | +--------+ + + + + | 06/02/ | Telephone | [facility] [place] | Oleksandr Hyde, | Other | | 2020 | | PULMONARY [address] | MD [address] | | | | | [place], | [place] | | | | | [place] [address] | [address] | | | | | [phone] | | | +--------+ + + + [...] documented as of this encounter Miscellaneous Notes Telephone Encounter - Sabrina Barajas RN - 06/02/2019 2:19 PM PSTSp[place] and confirmed patient Rob shipped today................................ ............Sabrina Barajas RN on 06/02/19 at 2:26 PM documented in this en counter Plan of Treatment Not on filedocumented as of this encounter Visit Diagnoses Not on filedocumented in this encounter"
--- OUTSIDE RECORDS SUMMARY | ~2019-12-11 | XMS | Encounter Summary ---
Demographics + + + | Address | [address] | | | [place] [address] | + + + | Home Phone | | + + + | Preferred Language | Unknown | + + + | Marital Status | Single | + + + | Pentecostal Affiliation | Unknown | + + + | Race | White | + + + | Ethnic Group | Not or | + + + Author + + + | Author | [facility] | | | and [place] | + + + | Organization | [facility] | | | [...] Team Providers + +------+ + | Care Rigging Foreman Name | Role | Phone | + +------+ + | David Arias MD | PCP | | + +------+ + Reason for Visit +--------+--------+ + | Reason | Onset | Comments | | | Date | | +--------+--------+ + | Other | 04/22/ | patient needs an MRI | | | 2014 | | +--------+--------+ + Encounter Details +--------+ + + + + | Date | Type | Department | Care Team | Description | +--------+ + + + + | 04/22/ | Telephone | [facility] | Pooja Owens, | Other (patient needs | | 2014 | | CARDIOLOGY [address] | [address] | an MRI) | | | | [place], | [place], | | | | | [place] [address] | [place] [address] | | | | | [phone] | [phone] | | | | | | | [...] this encounter Miscellaneous Notes Telephone Encounter - Clarice Madrigal RN - 04/22/2014 11:36 AM PSTGreg called to report janice ruiz yesterday and needs an MRI and they are wondering if they can do it with he r Loop Recorder. Per conversation with Dr Fernandes, patient is ok to do MRI with Loop recorder, information stored at this time will be lost but it will continue to monitor forward. Robin is notified and will do the MRI as planned ...........................................Clarice Madrigal RN on 04/22/2014 at 11:40 documented in this encounter Plan of Treatment Not on filedocumented as of this encounter Visit Diagnoses Not on filedocumented in this encounter"
--- OUTSIDE RECORDS SUMMARY | ~2019-12-11 | XMS | Encounter Summary ---
Demographics + + + | Address | [address] | | | [place] [address] | + + + | Home Phone | | + + + | Preferred Language | Unknown | + + + | Marital Status | Single | + + + | Cheondoism Affiliation | Unknown | + + + | Race | White | + + + | Ethnic Group | Not or | + + + Author + + + | Author | [facility] | | | and [place] | + + + | Organization | [facility] | | [...] Team Providers + +------+ + | Care Pin Sticker Name | Role | Phone | + +------+ + | David Arias MD | PCP | | + +------+ + Reason for Referral Diagnostic/Screening (Routine) +--------+--------+ + + + + | Status | Reason | Specialty | Diagnoses / | Referred By | Referred To | | | | | Procedures | Contact | Contact | +--------+--------+ + + + + | Closed | | Radiology | Diagnoses | [place], | [facility] | | | | | CHF | MD Pooja | [address] | | | | | (congestive | [address] | [place], | | | | | heart | [address] | [place] | | | | | failure) | [place], | [address] | | | | | (HCC) | [place] [address] | Phone: | | | | | Procedures | Phone: | [phone] | | | | | ECHO | [phone] | Fax: | | | | | Complete | Fax: | [phone] | | | | | | [phone] | | +--------+--------+ + + + + Reason for Visit + + + | Reason | Comments | + + + | Annual Exam | | + + + | Tachycardia | | + + + | Shortness of Breath | | + + + | Chest Heaviness | | + + + Encounter Details +--------+---------+ + + + | Date | Type | Department | Care Team | Description | +--------+---------+ + + + | 06/30/ | Office | [facility] | Pooja Owens, | Encounter for annual | | 2013 | Visit | CARDIOLOGY [address] | [address] [facility] | health examination | | | | [address] [place], | [place], | (Primary Dx); | | | | [place] [address] | [place] [address] | Tachycardia; SOB | | | | [phone] | [phone] | (shortness of | | | | | | breath); Chest | | | | | | heaviness; Other | | | | | | chest pain; CHF | | | | | | (congestive heart | | | | | | failure) (HCC) | +--------+---------+ + + + Social [...] + + + | Blood Pressure | 120/70 | 06/30/2013 8:57 AM | right arm | | | | PDT | | + + + + + | Pulse | 80 | 06/30/2013 8:57 AM | irregular | | | | PDT | | + + + + + | Temperature | - | - | | + + + + + | Respiratory Rate | 18 | 06/30/2013 8:57 AM | | | | | PDT | | + + + + + | Oxygen Saturation | - | - | | + + + + + | Inhaled Oxygen | - | - | | | Concentration | | | | + + + + + | Weight | 64 kg (141 lb) | 06/30/2013 8:57 AM | | | | | PDT | | + + + + + | Height | 162.6 cm (5' 4") | 06/30/2013 8:57 AM | | | | | PDT | | + + + + + | Body Mass Index | 24.2 | 06/30/2013 8:57 AM | | | | | PDT | | + + + + + documented in this encounter Patient Instructions Patient Instructions Clarice Madrigal RN - 06/30/2013 9:41 AM PDT1. Stress test, Echo and holter monitor soon 2. Follow up in Cardiology in about one monthElectronically signed by Clarice Madrigal RN a t 06/30/2013 9:42 AM PDT documented in this encounter Progress Notes Pooja Owens MD - 06/30/2013 9:10 AM PDTFormatting of this note might be different f rom the original. PATIENT NAME: Priscila Brasher : 1940: AGE: 72 y.o. PRIMARY CARE: David Arias MD OUTPATIENT FOLLOW UP VISIT Date of Service: 06/30/2013 HISTORY OF PRESENT ILLNESS: Priscila Brasher is a 72 y.o. female with a history of chronic obstructive pulmonary disease, obstructive sleep apnea, remote smoking, hypertension, history of a pulmonary embolism on c hronic warfarin. She is being seen today for treatment of increasing chest pressure and vanesa rtness of breath on exertion Patient was in her usual state of health until 2-3 months ago when she noticed the substern al chest tightness and trouble breathing when she walks. She had to stop walking in order t o make chest pressure and shortness of breath to go away. On 06/11/13, patient had a walking oximetry and was found to have a tachycardia with heart rate of 140s beats per minute. At th at moment, patient doesn't recall having any chest pounding or palpitations. Dr. Call, he r health care consultant stating that the symptom could be from a cardiac condition and referred back to my attention. Patient also mentioned that she had been feeling tired. She has history of obstructive sle ep apnea but refuses to wear a CPAP mask. She wears a nocturnal oxygen. She denies any ankle or leg swelling. He doesn't feel any palpitation dizziness or lighthe adedness. MEDICAL, SURGICAL, AND PERSONAL HISTORY Past Medical, Surgical, Family, and Social History are reviewed in EPIC. 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 cyclobenzaprine (FLEXERIL) 5 MG tablet Take 5 mg by mouth 3 times daily as needed. [DISCONTINUED] diclofenac (CATAFLAM) 50 MG tablet Take 75 mg by mouth 3 times daily. diclofenac (VOLTAREN) 75 mg EC tablet [DISCONTINUED] diclofenac-misoprostol (ARTHROTEC 75) 75-0.2 mg per tablet Take by mout h 2 times daily. Fluticasone Propionate (FLONASE NA) once daily metoclopramide (REGLAN) 10 mg tablet Take 10 mg by mouth 4 times daily as needed. metoprolol succinate (TOPROL-XL) 25 mg 24 hr tablet Take 25 mg by mouth Daily. misoprostol (CYTOTEC) 200 MCG tablet Take 200 mcg by mouth Daily. naproxen (NAPROSYN) 500 mg tablet Take 500 mg by mouth Twice daily as needed. SUMAtriptan (IMITREX) 100 mg tablet Take 100 mg by mouth as needed. warfarin (COUMADIN) 2.5 mg tablet warfarin (COUMADIN) 5 mg tablet ALLERGIES Allergies Allergen Reactions Codeine Sulfate Penicillins Tetanus Toxoids ROS Review of Systems Constitutional: Positive for weight loss and malaise/fatigue. Negative for fever, chills an d diaphoresis. HENT: Negative for hearing loss, ear pain, nosebleeds, congestion, sore throat, neck pain, tinnitus and ear discharge. Eyes: Negative for blurred vision, double vision, photophobia, pain, discharge and redness. Respiratory: Positive for shortness of breath. Negative for cough, wheezing and stridor. Cardiovascular: Positive for palpitations. Negative for chest pain, orthopnea, claudication , leg swelling and PND. Gastrointestinal: Negative for heartburn, nausea, vomiting, abdominal pain, diarrhea, const ipation, blood in stool and melena. Genitourinary: Negative for dysuria, urgency, frequency, hematuria and flank pain. Musculoskeletal: Positive for joint pain. Negative for myalgias, back pain and falls. Skin: Negative for itching and rash. Neurological: Positive for weakness. Negative for dizziness, tingling, tremors, seizures, l oss of consciousness and headaches. Endo/Heme/Allergies: Negative for environmental allergies and polydipsia. Bruises/bleeds ea sily. Psychiatric/Behavioral: Negative for memory loss. The patient is nervous/anxious and has in somnia. OBJECTIVE: PHYSICAL EXAM BP 120/70 | Pulse 80 | Resp 18 | Ht 1.626 m (5' 4") | Wt 63.957 kg (141 lb) | BMI 24.19 kg/ m2 Physical Exam Constitutional: She appears well-developed and well-nourished. No distress. Elderly, female individual without acute distress. Neck: Normal carotid pulses, no hepatojugular reflux and no JVD present. Carotid bruit is n ot present. Cardiovascular: Normal rate, regular rhythm, S1 normal, S2 normal, normal heart sounds, int act distal pulses and normal pulses. PMI is not displaced. Exam reveals no gallop, no S3, no S4 and no friction rub. No murmur heard. Pulses: Carotid pulses are 2+ on the right side, and 2+ on the left side. Dorsalis pedis pulses are 2+ on the right side, and 2+ on the left side. Pulmonary/Chest: Effort normal and breath sounds normal. No accessory muscle usage. No resp iratory distress. She has no wheezes. She has no rhonchi. She has no rales. Abdominal: Normal appearance, normal aorta and bowel sounds are normal. She exhibits no abd ominal bruit. There is no hepatosplenomegaly. There is no tenderness. Musculoskeletal: She exhibits no edema. Neurological: She is alert. Gait normal. Skin: Skin is warm and dry. Psychiatric: She has a normal mood and affect. Her mood appears not anxious. She does not e xhibit a depressed mood. ECG: Sinus rhythm, normal EKG. LAB RESULTS: LIPID No results found for this basename: chol, trig, ldlcalc, hdl, ldl, calculated, cholhdl CHEMISTRY No results found for this basename: glu, magn, na, K, CL, CO2, calcium, alkphos, ast, alt, bilitot, crea, BUN, EGFR HEMATOLOGY No results found for this basename: wbc, hgb, hct, plt I personally reviewed records from another healthcare provider. ASSESSMENT: 1. New onset chest pressure and shortness of breath on exertion A. She had a left heart catheterization done at [facility] in 2008. She w as told her arteries were clean. B. Normal regadenoson sestamibi stress test on 11/01/2010. LVEF by gated SPECT was 72%. C. Patient was in her usual state of health until 2-3 months ago when she noticed the subs ternal chest tightness and trouble breathing when she walks. Today, patient is doing well from cardiac standpoint. There is no signs and symptoms of overt congestive heart failure. She is in a class II of [place] [employer] functional class. There is no fluid ret ention on physical examination. 2. Tachycardia A. On 06/11/13, patient had a walking oximetry and was found to have a tachycardia with hear t rate of 140s beats per minute. At that moment, patient doesn't recall having any chest pedro nding or palpitations. Dr. Call, her health care consultant stating that the symptom could be from a cardiac condition and referred back to my attention. 3. Chronic obstructive pulmonary disease: A. The patient had a lung function test done approximately in 2009, which revealed that valerie oakley has obstructive lung disease. 4. Snoring with daytime somnolence suggesting obstructive sleep apnea. A. Patient also mentioned that she had been feeling tired. She has history of obstructive sleep apnea but refuses to wear a CPAP mask. She wears a nocturnal oxygen. 5. History of deep vein thrombosis after left hip surgery associated with pulmonary embolis m: A. She is on chronic anticoagulation. PLAN: 1. Echocardiogram is warranted to assess left ventricular systolic and diastolic function. 2. Exercise stress test is indicated for the workup of chest pain. 3. 48-hour Holter monitor is indicated to work up of tachycardia. 4. Followup in 4-6 weeks the Portions of this report were transcribed using voice recognition software. Every effort wa s made to ensure accuracy; however, inadvertent computerized automobile designer errors may be pre sent. Electronically signed by: Pooja Owens MD [facility] 06/30/2013 9:10 documented in this encounter Procedure Notes ELIZABETH MEDINA - 06/30/2013 12:00 AM PDTAssociated Order(s): ECG - EXTERNAL SCANBianka brooks signed by Arnol Brothers at 07/02/2013 4:21 PM PDTdocumented in this encounter Plan of Treatment + +------+--------+ + + | Name | Type | Priori | Associated Diagnoses | Order Schedule | | | | ty | | | + +------+--------+ + + | ECG 12 lead | ECG | Routin | Encounter for | Ordered: 06/30/2013 | | | | e | annual health | | | | | | examination | | | | | | Tachycardia SOB | | | | | | (shortness of | | | | | | breath) Chest | | | | | | heaviness | | + +------+--------+ + + documented as of this encounter Procedures + +--------+ + + + | Procedure Name | Priori | Date/Time | Associated Diagnosis | Comments | | | ty | | | | + +--------+ + + + | ECG - EXTERNAL SCAN | | 06/30/2013 | | | | | | 12:00 AM | | | | | | PDT | | | + +--------+ + + [...] Hansen | | | MD [facility] TECHNICIAN: Pooja Owens MD | | | 48-HOUR [...] not report any symptoms. Signed by: Pooja Venegas | | MD [facility] 07/29/2013, 13:40 | | + + + + ------+ | Procedure Note | + ------+ | Pooja Owens MD - 07/29/2013 1:40 PM PDT Formatting of this note might be | | different from the original.PATIENT NAME: Priscila Brasher : 1940: | | AGE: 72 y.o. PRIMARY CARE:David Arias, | | [facility] HEALTHCARE TECHNICIAN:Pooja Owens MD 48-HOUR HOLTER MONITOR REPORTDATE: | [...] symptoms.Signed by: Pooja | | MD [facility] 07/29/2013, 13:40 | |Pooja Owens MD | [...] | | |Signed by: Pooja Owens MD [facility] | | 07/29/2013, 13:40 | + ------+ ECHO Complete (07/29/2013 10:46 AM PDT) + + | Specimen | + + | | + + + + + | Narrative | Performed At | + + + | [facility] | [place] | | STUDY DATE: 07/29/2013 PATIENT NAME: Priscila Brasher : | [facility] | | 1940 PCP: David Arias MD | [facility] | | CLINICAL HISTORY/DIAGNOSIS: CHF A transthoracic echocardiogram | - IMAGING | | with M-mode, pulsed-wave and color Doppler was performed with | | | standard views obtained. The technical quality of this examination | | | is good. The heart rhythm during the echo is sinus rhythm. The | | | M-mode, two-dimensional, color flow and spectral Doppler data were | | | reviewed and support the following interpretation: Interpretation: | | | Left Atrium: Left atrial size is normal. Left ventricle: Left | | | ventricular size is normal with normal wall thickness and motion, | | | and normal left ventricular systolic function. The estimated | | | ejection fraction is 65 %. Grade 1 left ventricular diastolic | | | dysfunction. Aortic root: Aortic root is normal. Right Atrium: | | | Right atrial sizes normal. Normal right-sided pressure. Right | | | ventricle: Right ventricular size is normal with normal wall | | | thickness and normal right ventricular systolic function. | | | Pericardium: Pericardium is normal. Pulmonary artery: Pulmonary | | | artery is normal. Aortic valve: Aortic valve is trileaflet and | | | opens normally.mild aortic valve insufficiency. Mitral valve: | | | Mitral valve is normal.mild mitral valve regurgitation. Pulmonic | | | valve: Pulmonic valve is normal. Tricuspid valve: Tricuspid valve | | | is normal.mild tricuspid valve regurgitation. Vena cava: The | | | inferior vena cava is normal. There is greater than 50% | | | inspiratory collapse of the IVC. IMPRESSIONS: 1. Normal left | | | ventricular size, wall thickness and motion. Preserved left | | | ventricular systolic function. LVEF is 65%. 2. Grade 1 left | | | ventricular function. 3. Mild aortic valve insufficiency. 4. | | | Mild mitral valve regurgitation. 5. Mild tricuspid valve | | | regurgitation. 6. Normal right-sided pressure. 7. Normal IVC | | | with a normal respiratory collapse. Measurements: | | | Height: 64 Weight: 140 Aortic root: 32 mm Aortic cusp sep: 18 | | | mm LA: 52 mm IVS-diastole: 10 mm IVS-systole: 12 mm LVPW | | | diastole: 10 mm LVPW systole: 14 mm LV diameter-diastole: 36 | | | mm LV diameter-systole: 20 mm Fractional shortenin % PFV | | | aortic valve: m/s MPG mitral valve: mmHg PFV TR jet: 2.61 | | | m/s RA/RV PP.3 mmHg LA volume: 22 mL LA index: 13 mL/m2 | | | Mitral Inflow DT: 218 ms IVRT: 105 ms Valsalva: NOT NEEDED | | | PWDTI S wave: 7.0 cm/s PWDTI E wave: 5.6 cm/s PWDTI A wave: | | | 9.6 cm/s E/A Ratio: 0.583 E/E Ratio: 12.03 Signed | | | by: Pooja Owens MD [facility] 07/29/2013 10:56 | | | Child And Youth Program Assistant: Ramy Hayden RDMS | | + + + + + | Procedure Note | + + | Pooja Owens MD - 07/29/2013 12:53 PM [facility] | | CENTERECHOCARDIOGRAM REPORTSTUDY DATE: 07/29/2013PATIENT NAME: Priscila Cao TappDOB: | | 1940MRN: [id number]: David Arias [facility]DIAGNOSIS: CHFA | | transthoracic echocardiogram with M-mode, pulsed-wave and color Doppler was performed | | with standard views obtained. The technical quality of this examination is good. The | | heart rhythm during the echo is sinus rhythm. The M-mode, two-dimensional, color flow | | and spectral Doppler data were reviewed and support the following | | interpretation:Interpretation:Left Atrium: Left atrial size is normal.Left ventricle: | | Left ventricular size is normal with normal wall thickness and motion, and normal left | | ventricular systolic function. The estimated ejection fraction is 65 %. Grade 1 left | | ventricular diastolic dysfunction. Aortic root: Aortic root is normal.Right Atrium: | | Right atrial sizes normal. Normal right-sided pressure.Right ventricle: Right | | ventricular size is normal with normal wall thickness and normal right ventricular | | systolic function.Pericardium: Pericardium is normal.Pulmonary artery: Pulmonary | | artery is normal.Aortic valve: Aortic valve is trileaflet and opens normally.mild | | aortic valve insufficiency.Mitral valve: Mitral valve is normal.mild mitral valve | | regurgitation.Pulmonic valve: Pulmonic valve is normal.Tricuspid valve: Tricuspid | | valve is normal.mild tricuspid valve regurgitation.Vena cava: The inferior vena cava is | | normal. There is greater than 50% inspiratory collapse of the IVC.IMPRESSIONS:1. | | Normal left ventricular size, wall thickness and motion. Preserved left ventricular | | systolic function. LVEF is 65%.2. Grade 1 left ventricular function.3. Mild aortic | | valve insufficiency.4. Mild mitral valve regurgitation.5. Mild tricuspid valve | | regurgitation.6. Normal right-sided pressure.7. Normal IVC with a normal respiratory | | collapse.Measurements:Height: 64Weight: 140Aortic root: 32 mmAortic cusp sep: 18 mmLA: | | 52 mmIVS-diastole: 10 mmIVS-systole: 12 mmLVPW diastole: 10 mmLVPW systole: 14 | | mmLV diameter-diastole: 36 mmLV diameter-systole: 20 mmFractional shortenin %PFV | | aortic valve: m/sMPG mitral valve: mmHgPFV TR jet: 2.61 m/Hannah/RV PP.3 mmHgLA | | volume: 22 mLLA index: 13 mL/z7Wnspbb Inflow DT: 218 msIVRT: 105 msValsalva: NOT | | NEEDEDPWDTI S wave: 7.0 cm/sPWDTI E wave: 5.6 cm/sPWDTI A wave: 9.6 cm/sE/A Ratio: | | 0.583E/E Ratio: 12.03Signed by: Pooja Owens MD [facility] 07/29/2013 10:56 | | Child And Youth Program Assistant: Ramy Hayden RDMS | |Vena cava: The inferior vena cava is normal. There is greater than 50% inspiratory collap se of the IVC. | | | | | |IMPRESSIONS: | |1. Normal left ventricular size, wall thickness and motion. Preserved left ventricular sy stolic function. LVEF is 65%. | |2. Grade 1 left ventricular function. | |3. Mild aortic valve insufficiency. | |4. Mild mitral valve regurgitation. | |5. Mild tricuspid valve regurgitation. | |6. Normal right-sided pressure. | |7. Normal IVC with a normal respiratory collapse. | | | | | | | | | |Measurements: | |Height: 64 | |Weight: 140 | |Aortic root: 32 mm | |Aortic cusp sep: 18 mm | |LA: 52 mm | |IVS-diastole: 10 mm | |IVS-systole: 12 mm | |LVPW diastole: 10 mm | |LVPW systole: 14 mm | |LV diameter-diastole: 36 mm | |LV diameter-systole: 20 mm | |Fractional shortenin % | |PFV aortic valve: m/s | |MPG mitral valve: mmHg | |PFV TR jet: 2.61 m/s | |RA/RV PP.3 mmHg | |LA volume: 22 mL | |LA index: 13 mL/m2 | |Mitral Inflow DT: 218 ms | |IVRT: 105 ms | |Valsalva: NOT NEEDED | |PWDTI S wave: 7.0 cm/s | |PWDTI E wave: 5.6 cm/s | |PWDTI A wave: 9.6 cm/s | |E/A Ratio: 0.583 | |E/E Ratio: 12.03 | | | | | | | | | |Signed by: Pooja Owens MD [facility] | | 07/29/2013 10:56 | | | | | |Child And Youth Program Assistant: Ramy Hayden RDMS | + + + + + + + | Performing | Address | City/State/Zipcode | Phone Number | | Organization | | | | + + + + + | [facility] | [address] | [place], [place] | [phone] | | [facility] | | [id number] | | | - IMAGING | | | | + + + + + documented in this encounter Visit Diagnoses + + | Diagnosis | + + | Encounter for annual health examination - Primary Routine general medical examination | | at a health care facility | + + | Tachycardia Tachycardia, unspecified | + + | SOB (shortness of breath) Shortness of breath | + + | Chest heaviness Other chest pain | + + | Other chest pain | + + | CHF (congestive heart failure) (HCC) Congestive heart failure, unspecified | + + documented in this encounter
--- OUTSIDE RECORDS SUMMARY | ~2019-12-11 | XMS | Encounter Summary ---
Demographics + + + | Address | [address] | | | [place] [address] | + + + | Home Phone [...] Author + + + | Author | [facility] | | | and [place] | + + + | Organization | [facility] | | | and [place] | + + + | Address | Unknown | + + + | Phone | Unavailable | + + + Support + + +---------+ + | Name | Relationship | Address | Phone | + + +---------+ + | Osorio Websetr | ECON | Unknown | | + + +---------+ + | Toñito Hernandez | ECON | Unknown | | + + +---------+ + Care Team Providers + +------+ + | Care Microstrategy Architect Name | Role | Phone | + +------+ + | Dvaid Arias MD | PCP | | + +------+ + Reason for Visit +--------+--------+ + | Reason | Onset | Comments | | | Date | | +--------+--------+ + | Other | 07/04/ | nebulizer meds | | | 2016 | | +--------+--------+ + Encounter Details +--------+ + + + + | Date | Type | Department | Care Team | Description | +--------+ + + + + | 07/04/ | Telephone | [facility] | Oleksandr Hyde, | Akanksha (nebulizer | | 2017 | | PULMONARY [address] | MD [address] | meds) | | | | [place], | [place], [place] | | | | | [place] [address] | [address] | | | | | [phone] | | | +--------+ + + + [...] this encounter Miscellaneous Notes Telephone Encounter - Odalys Fajardo RN - 07/04/2016 9:55 AM PDTKeisha called stating that Priscila was concerned that she had not received the budesonide or perforomist. Prescrip tions may have been sent to [employer]. Reprinted and sent to Johana VenturaElectronically s igned by Odalys Fajardo RN at 07/04/2016 10:00 AM PDTdocumented in this encounter Plan of Treatment Not on filedocumented as of this encounter Visit Diagnoses + + | Diagnosis | + + | Chronic obstructive pulmonary disease, unspecified COPD type (HCC) - Primary | + + documented in this encounter"
--- OUTSIDE RECORDS SUMMARY | ~2019-12-11 | XMS | Encounter Summary ---
Demographics + + + | Address | [address] | | | [place] [address] | + + + | Home Phone | | + + + | Preferred Language | Unknown | + + + | Marital Status | Single | + + + | Protestant Affiliation | Unknown | + + + [...] Team Providers + +------+ + | Care Bindery Machine Tender Name | Role | Phone | + [...] Description | +--------+---------+ + + + | 06/11/ | Office | [facility] | Oleksandr Hyde, | Emphysema (Primary | | 2013 | Visit | [address]ULMONARY [address] | MD [address] | Dx); COPD; Nocturnal | | | | [place], | [place] | hypoxemia | | | | [place] [address] | [id number] | | | | | [phone] | | | +--------+---------+ + + + Social History + + + +--------+------+ | Tobacco Use | Types | Packs/Day | Years | Date | | | | | Used | | + + + +--------+------+ | Former Smoker | Cigarettes | 4 | 45 | | + + + +--------+------+ + + | Comments: quit in 1990 | + + + + +---------+ + [...] + + + | Blood Pressure | 118/82 | 06/11/2013 2:28 PM | | | | | PST | | + + + + + | Pulse | 117 | 06/11/2013 2:28 PM | | | | | PST | | + + + + + | Temperature | - | - | | + + + + + | Respiratory Rate | - | - | | + + + + + | Oxygen Saturation | 97% | 06/11/2013 2:28 PM | | | | | PST | | + + + + + | Inhaled Oxygen | - | - | | | Concentration | | | | + + + + + | Weight | 60.1 kg (132 lb 6.4 | 06/11/2013 2:28 PM | | | | oz) | PST | | + + + + + | Height | 164.5 cm (5' 4.75") | 06/11/2013 2:28 PM | | | | | PST | | + + + + + | Body Mass Index | 22.2 | 06/11/2013 2:28 PM | | | | | PST | | + + + + + documented in this encounter Patient Instructions Patient Instructions Oleksandr Hyde MD - 06/11/2013 2:53 PM PSTContinue with as needed Combivent. documented in this encounter Progress Notes Oleksandr Hyde MD - 06/11/2013 2:39 PM PSTFormatting of this note might be different f rom the original. Pulmonary Follow Up 06/11/2013 HPI Priscila Brasher is a 72 y.o. female patient of David Arias here today for follow u p of COPD. Last visit was on 12/10/12. In mid May the patient had a hip replacement. She apparen tly developed a postoperative pneumonia requiring a prolonged hospitalization. Over was dis charged on 29 May. Very slow improvement of her symptoms is noted. Priscila has noted fatigue and tachycardia ever since her discharge. Shortness of breath oc curs with little exertion. The patient has been evaluated by Dr. Arias has apparently anne d several EKGs but no abnormal rhythms have apparently been appreciated. The patient also r eports having a pulmonary CT angiogram. No evidence of a pulmonary embolism was noted. Priscila nodes chest heaviness without alyssa pain. Palpitations are noted. Otherwise since their last appointment they feel like their breathing issues have been stab le. They have not had any other acute illnesses. The patient has not required a prednisone t aper since our last clinic appointment. They are currently on a daily regimen of prn Combivent. They do feel like this medication regimen is working for them. They return today for routine follow up. Currently she is using their rescue inhaler, Combivent, 3 times a day. Currently the patient is able to walk only 50-100 feet at their own pace on level ground be fore developing shortness of breath. They are not exercising regularly. Priscila is currentl y walking with the aid of a walker. The patient does not cough chronically, and does not produce mucous. They have not had hemo ptysis since our last appointment. She has been evaluated for nocturnal oxygen and does does qualify for usage. They currentl y are using nocturnal oxygen. They are currently on 2 LPM at night. They report excellent c ompliance. She does not had symptoms of heartburn or reflux. They have not had symptoms of nasal conge stion, runny nose or post nasal drip. The patient has received this year's influenza vaccination. They are up to date with their Pneumovax. Past Medical History Past Medical History Diagnosis Date Pulmonary embolus (HCC) 2009 after surgery Reflux Non Hodgkin's lymphoma (HCC) 2008 no recurrence, seen by Dr. Gonzalez annually Arthritis Fatigue Hiatal hernia Sleep apnea No CPAP. O2 at night. COLINDRES (dyspnea on exertion) Pneumonia Episodes 1990 and 2013 Emphysema (HCC) Normal FEV1 and extensive on CT scan Hypoxemia (HCC) Osteoporosis Depression Hepatitis B infection 1969' Rheumatic fever 1947 enlarged heart and murmur [...] Current outpatient prescriptions:albuterol-ipratropium (COMBIVENT) 103-18 mcg/puff inhaler, Inhale 2 puffs into the lungs every 4 hours as needed for Wheezing., Disp: 1 Inhaler, Rfl: 11; amitriptyline (ELAVIL) 25 mg tablet, Take 25 mg by mouth nightly., Disp: , Rfl: ; cycl obenzaprine (FLEXERIL) 5 MG tablet, Take 5 mg by mouth 3 times daily as needed., Disp: , Rfl : diclofenac (CATAFLAM) 50 MG tablet, Take 75 mg by mouth 3 times daily., Disp: , Rfl: ; dic lofenac (VOLTAREN) 75 mg EC tablet, , Disp: , Rfl: ; diclofenac-misoprostol (ARTHROTEC 75) 75-0.2 mg per tablet, Take by mouth 2 times daily., Disp: , Rfl: ; Fluticasone Propionate (FLONASE NA), once daily, Disp: , Rfl: ; metoclopramide (REGLAN) 10 mg tablet, Take 10 mg b y mouth 4 times daily (before meals and nightly)., Disp: , Rfl: metoprolol succinate (TOPROL-XL) 25 mg 24 hr tablet, , Disp: , Rfl: ; misoprostol (CYTOTEC ) 200 MCG tablet, Take 200 mcg by mouth Daily., Disp: , Rfl: ; naproxen (NAPROSYN) 500 mg t ablet, Take 500 mg by mouth 2 times daily (with breakfast & dinner)., Disp: , Rfl: ; SUMAtr iptan (IMITREX) 100 mg tablet, Take 100 mg by mouth as needed., Disp: , Rfl: Immunizations: Immunization History Administered Date(s) Administered INFLUENZA, PRESERVATIVE FREE IM 01/20/2012, 01/19/2013 Pneumococcal (Adult) 04/07/1996, 12/10/2012 Tdap 06/16/2010 Zoster 06/16/2009 Review of Systems Constitutional: Denies fever, [...] Denies urticaria and allergic rash. Objective BP 118/82 | Pulse 117 | Ht 1.645 m (5' 4.75") | Wt 60.056 kg (132 lb 6.4 oz) | BMI 22.19 kg /m2 | SpO2 97% Appearance: Alert, cooperative, no distress, appears stated [...] Chest Wall: No tenderness or deformity. Heart: rapid rate with a regular rhythm. S1, S2 normal. No murmur, rubs or gallops. Extremities: Extremities normal/atraumatic. No cyanosis, clubbing. no edema. Skin: Warm and dry. Lymph nodes: No significant cervical and supraclavicular nodes. Neurologic: patient walks with the aid of walker Data: Walking oximetry. Patient walked 350 feet over 3 and half minutes. Her resting O2 saturat ion was 95% with a heart rate in the 120s. With ambulation the patient's heart rate peaked at 146. Her O2 saturation did not drop below 93%. Assessment 1. COPD-suspect stable symptoms. No evidence of a COPD exacerbation noted on exam. 2. Nocturnal hypoxemia-patient wears supplemental oxygen at 2 L per minute while sleeping. 3. Recent pneumonia-suspect postoperative pain medications were continued for a period no evidence on physical exam of a persistent pneumonia/parapneumonic process. 4. Tachycardia-based on the patient's physical exam and apparent prior EKGs suspect sinus tachycardia. Priscila is known by the cardiology department. I would have a low threshold f or further evaluation. In fact the patient plans on speaking with the cardiology receptioni today to set up a followup appointment with Dr. Owens. We discussed performing an EKG though given that several have been performed by Dr. Sanchez n we will defer such a study at this time. Plan 1. Seasonal influenza vaccination fall 2013. 2. Continue with as needed Combivent. 3. Initiate regular schedule exercise with possible. 4. Pulmonary clinic followup appointment in 12 months time. CC: David Arias documented in this encounter Procedure Notes ELIZABETH MEDINA - 06/11/2013 12:00 AM PSTAssociated Order(s): DIAGNOSTIC REPORT - EXTERNAL SCAN documented in this enco unter Plan of Treatment Not on filedocumented as of this encounter Procedures + +--------+ + + + | Procedure Name | Priori | Date/Time | Associated Diagnosis | Comments | | | ty | | | | + +--------+ + + + | DIAGNOSTIC REPORT - | | 06/11/2013 | | | | EXTERNAL SCAN | | 12:00 AM | | | | | | PST | | | + +--------+ + + + documented in this encounter Visit Diagnoses + + | Diagnosis | + + | Emphysema - Primary Other emphysema | + + | COPD Chronic airway obstruction, not elsewhere classified | + + | Nocturnal hypoxemia Hypoxemia | + + documented in this encounter
--- OUTSIDE RECORDS SUMMARY | ~2019-12-11 | XMS | Encounter Summary ---
Demographics + + + | Address | [address] | | | [place] [address] | + + + | Home Phone | | + + + | Preferred Language | Unknown | + + + | Marital Status | Single | + + + | Samaritan Affiliation | Unknown | + + + | Race | White | + + + | Ethnic Group | Not or | + + + Author + + + | Author | [facility] | | | and [place] | + + + | Organization | [facility] | | [...] Team Providers + +------+ + | Care Community Organization Aide Name | Role | Phone | + +------+ + | David Arias MD | PCP | | + +------+ + Reason for Visit +--------+--------+ + | Reason | Onset | Comments | | | Date | | +--------+--------+ + | Other | 05/10/ | continues to have symptoms | | | 2020 | | +--------+--------+ + Encounter Details +--------+ + + + + | Date | Type | Department | Care Team | Description | +--------+ + + + + | 05/10/ | Telephone | [facility] | Oleksandr Hyde, | Other (continues to | | 2020 | | PULMONARY [address] | MD [address] | have symptoms) | | | | [place], | [place] | | | | | [place] [address] | [address] | | | | | [phone] | | | +--------+ + + + [...] documented as of this encounter Miscellaneous Notes Addendum Note - Odalys Hancock RN - 05/14/2019 10:11 AM PST Addended by: CLAUDIA HANCOCK on: 05/14/2019 10:11 AM Modules accepted: Orders elephone Encount er - Odalys Hancock RN - 05/14/2019 10:04 AM Luis Manuel called to confirm which nebulize r medications Dr Hyde would like her to take as she was hospitalized overnight at [facility]. Per Dr Hyde, Priscila is to take the Duo Neb, Perforomist and budesonide. She reque sted a prescription for the Duo Neb be sent to [facility]. Printed and sent.Electronically sign ed by Odalys Hancock RN at 05/14/2019 10:11 AM PSTTelephone Encounter - Odalys Hancock RN - 05/10/2019 1:40 PM Luis Manuel called back and stated that she was going to the ED.El ectronically signed by Odalys Hancock RN at 05/10/2019 1:41 PM PSTTelephone Encounter - Odalys Hancock RN - 05/10/2019 1:20 PM PSTPriscila called stating that she continues to have the same symptoms as reported at her office visit on 03/17/19. She adds that simple tas ks are difficult and cause increased shortness of breath. This causes her to become light he aded. She denies having a recent acute illness but states that she had a temp 2 days ago of 100.0 and also on 3 days last week. She denies fever today. Priscila uses O2 at 2 l/m continu ous. She continues to take the nebulized budesonide and perforomist twice daily. She has not had a supply of Duo Neb as it was too expensive from [facility]. Will order from [facility] where she gets the other nebulizer solutions. Priscila saw Dr Arias as recommended to review labs. Requested that office note. Advised that if symptoms worsen she should present to the local Urgent Care or ED. Priscila is agreea ble. documented in th is encounter Plan of Treatment Not on filedocumented as of this encounter Visit Diagnoses + + | Diagnosis | + + | Chronic obstructive pulmonary disease, unspecified COPD type (HCC) | + + | Centrilobular emphysema (HCC) | + + documented in this encounter"
--- OUTSIDE RECORDS SUMMARY | ~2019-12-11 | XMS | Encounter Summary ---
Demographics + + + | Address | [address] | | | [place] [address] | + + + | Home Phone | | + + + | Preferred Language | Unknown | + + + | Marital Status | Single | + + + | Jew Affiliation | Unknown | + + + [...] Team Providers + +------+ + | Care Chemical Supervisor Name | Role | Phone | + +------+ + | David Arias MD | PCP | | + +------+ + Encounter Details +--------+ + + + + | Date | Type | Department | Care Team | Description | +--------+ + + + + | 11/24/ | Hospital | [facility] | Roman, Pooja, | Tachycardia (Primary | | 2014 | Encounter | [facility] | MD [address] | Dx); Emphysema | | | | [address] | [place], | | | | | [place], [place] | [place] [address] | | | | | [address] | [phone] | | | | | [phone] | | | +--------+ + + + [...] + + + | Blood Pressure | 122/80 | 11/24/2013 4:40 PM | | | | | PDT | | + + + + + | Pulse | 74 | 11/24/2013 4:40 PM | | | | | PDT | | + + + + + | Temperature | 36.8 C (98.2 F) | 11/24/2013 12:16 PM | | | | | PDT | | + + + + + | Respiratory Rate | 16 | 11/24/2013 4:40 PM | | | | | PDT | | + + + + + | Oxygen Saturation | 95% | 11/24/2013 4:40 PM | | | | | PDT | | + + + + + | Inhaled Oxygen | - | - | | | Concentration | | | | + + + + + | Weight | 64.4 kg (142 lb) | 11/24/2013 12:16 PM | | | | | PDT | | + + + + + | Height | 162.6 cm (5' 4") | 11/24/2013 12:16 PM | | | | | PDT | | + + + + + | Body Mass Index | 24.37 | 11/24/2013 12:16 PM | | | | | PDT [...] + + + +---------+ + + | Cholecalciferol | Take 1 capsule by | | 0 | | | | (VITAMIN D3) [id number] | mouth Once a week. | | | | 5 | | UNITS CAPS | Every Friday | | | | | + + [...] + documented as of this encounter H&P Notes Pooja Owens MD - 11/24/2013 12:09 PM PDTMs. Brasher's chart was reviewed in detail, and no changes have occurred since the recent note. Also, she was examined by me today and the re are no changes in the heart and lung exam. Ms. Brasher is still appropriate candidate for L oop recorder implantation and we will proceed with that today. An explanation of the proced ure, including the risks, benifits and alternatives to the procedure were discussed with the patient and consent has been obtained. The risks, benefits and alternatives to moderate anesthesia were explained to the patient Mallampati 1 ASA 1 Typical airway Pooja Mcmahon MD - 11/19/2013 10:29 AM PDT PATIENT NAME: Priscila Brasher : 1940: AGE: 73 y.o. PRIMARY CARE: David Arias MD OUTPATIENT FOLLOW UP VISIT Date of Service: 11/19/2013 HISTORY OF PRESENT ILLNESS: Priscila Brasher is a 73 y.o. 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 She is being seen today for follow up persistent palpitati ons. She was last seen 08/04/2013 at which time metoprolol was increased to 37.5 mg once a day fo r better heart rate control. Since that time, patient continues to feel very tired and fati gued. She had a bad night sweat. She would have a palpitations/heart racing this was assoc iated with severe dizziness and lightheadedness. The palpitation episodes can happen in str eak. Chest pain is getting better. There's no ankle leg swelling. She sprained her back last week and is limping when she walks. MEDICAL, SURGICAL, AND PERSONAL HISTORY Past Medical, Surgical, Family, and Social History are reviewed in EPIC. CURRENT PROBLEMS Patient Active Problem List Diagnosis DEPRESSION OSTEOPOROSIS Emphysema (HCC) SLEEP APNEA OBSTRUCTIVE SLEEP APNEA COPD POST TRAUMATIC STRESS SYNDROME DRUG ABUSE, IN REMISSION NON-HODGKIN'S LYMPHOMA PULMONARY EMBOLISM, HX OF PERIODIC LIMB MOVEMENT DISORDER Hypoxemia Nocturnal hypoxemia (HCC) Tachycardia Chest discomfort CHF (congestive heart failure) (HCC) CURRENT MEDICATIONS Outpatient Encounter Prescriptions as of 11/19/2013 Medication Sig Dispense Refill amitriptyline (ELAVIL) 25 mg tablet Take 25 mg by mouth nightly. cyclobenzaprine (FLEXERIL) 5 MG tablet Take 5 mg by mouth 3 times daily as needed. diclofenac (VOLTAREN) 75 mg EC tablet 75 mg 2 times daily. Fluticasone Propionate (FLONASE NA) once daily metoclopramide (REGLAN) 10 mg tablet Take 10 mg by mouth 4 times daily as needed. metoprolol succinate (TOPROL-XL) 25 mg 24 hr tablet Take 1.5 tablets by mouth Daily. 4 5 tablet 6 misoprostol (CYTOTEC) 200 MCG tablet Take 200 mcg by mouth Daily. naproxen (NAPROSYN) 500 mg tablet Take 500 mg by mouth Twice daily as needed. SUMAtriptan (IMITREX) 100 mg tablet Take 100 mg by mouth as needed. warfarin (COUMADIN) 2.5 mg tablet warfarin (COUMADIN) 5 mg tablet ALLERGIES Allergies Allergen Reactions Penicillins Anaphylaxis Codeine Sulfate Nausea And Vomiting Tetanus Toxoids Hives ROS ROS OBJECTIVE: PHYSICAL EXAM BP 110/60 | Pulse 62 | Resp 18 | Ht 1.626 m (5' 4") | Wt 65.817 kg (145 lb 1.6 oz) | BMI 24 .89 kg/m2 Physical Exam Constitutional: She appears well-developed and well-nourished. No distress. Female individual without acute distress. Neck: Normal carotid [...] does not e xhibit a depressed mood. LAB RESULTS: LIPID No results found for this basename: chol, trig, ldlcalc, hdl, ldl, calculated, cholhdl, ldl ex, hdlex, trigex, cholex CHEMISTRY Lab Results Component Value Date GLU 149* 05/19/2013 NA 137 05/19/2013 K 4.0 05/19/2013 CL 107 05/19/2013 CO2 23 05/19/2013 CALCIUM 8.5 05/19/2013 BUN 8 05/19/2013 EGFREX >60 05/19/2013 CREEX 0.50 05/19/2013 HEMATOLOGY Lab Results Component Value Date HGBEX 12.4 06/03/2013 ASSESSMENT: 1.Persistent palpitation/heart racing associated with severe dizziness and lightheadedness/ exhaustion A. On 06/11/13, patient had a walking oximetry and was found to have a tachycardia with hear t rate of 140's beats per minute. At that moment, patient doesn't recall having any chest po unding or palpitations. Dr. Call, her compliance nurse stating that the symptom could be fro m a cardiac condition and referred back to my attention. B. Holter Monitor 07/27/13, shows predominant rhythm is normal sinus with the heart rate r anging between 66 and 152 BPM, average heart rate was 99 BPM during the 48:32 hour recording , very rare ventricular events including 4 couplets and one run of bigeminy, very rare supra ventricular events including 2 three beat runs of PSVT, maximum rate was 170 BPM (13:20-1), no bradycardia or pauses, patient did not report any symptoms. C. Patient continues to feel very tired and fatigued. She had a bad night sweat. She wo uld have a palpitations/heart racing this was associated with severe dizziness and lighthead edness. She is in a class II of [employer] functional class. There are no si gns and symptoms of overt congestive heart failure. There is no fluid retention on physica l examination. 2. Chest pressure and shortness of breath on exertion: A. She had a left heart catheterization done at [facility] in 2008. She w as told her arteries were clean. B. Normal regadenoson sestamibi stress test on 11/01/2010. LVEF by gated SPECT was 72%. C. Stress Test 07/29/13, shows normal persantine sestamibi myocardial perfusion study with a normal left ventricular size and wall thickness, preserved left ventricular systolic func tion, LVEF by gated SPECT 80%. D. Echocardiogram 07/29/13, shows normal left ventricular size, wall thickness and motion, preserved left ventricular systolic function, LVEF is 65%, grade 1 left ventricular functio n, mild aortic valve insufficiency, mild mitral valve regurgitation, mild tricuspid valve re gurgitation, normal right-sided pressure, normal IVC with a normal respiratory collapse. E. Patient was in her usual state of health until 2-3 months ago when she noticed the subs ternal chest tightness and trouble breathing when she walks. 3. Chronic obstructive pulmonary disease: A. The patient had a lung function test done approximately in 2009, which revealed that sh cele has obstructive lung disease. 4. Snoring with daytime somnolence suggesting obstructive sleep apnea. A. Patient also mentioned that she had been feeling tired. She has history of obstructive sleep apnea but refuses to wear a CPAP mask. She wears nocturnal oxygen. 5. History of deep vein thrombosis after left hip surgery associated with pulmonary embolis m: A. She is on chronic anticoagulation. PLAN: 1. Because of the persistent symptoms of palpitations and heart racing, loop recorder impla ntation is recommended because 48-hour Holter monitor did not show any significant arrhythmi a. The risks and benefits of the procedure including alternative treatment were discussed wi th the patient in length. The patient decides to proceed with the procedure. 2. I recommend that she has her CPAP mask refit which she continues to refuse. Electronically signed by: Pooja Owens MD [facility] 11/19/2013 10:30 Portions of this chart may have been created with [employer] voice recognition software. Occasi onal wrong-word or sound-alike substitutions may have occurred due to the inherent navas itations of voice recognition software. Please read the chart carefully and recognize, using context, where these substitutions have occurred. documented in this encounter Procedure Notes Ramirez Singh MD - 11/25/2013 7:10 AM PDTAssociated Order(s): ECG 12 LEADProcedure(s): E CG 12 LEAD Adult ECG Report Name: Priscila Brasher Age: 73 y.o. Gender: female 8/20/14 at 16:49 Narrative Interpretation: Sinus rhythm. Normal axis. Normal intervals. Electronically si gned by Ramirez Singh MD at 11/25/2013 7:[address] [facility] - 11/25/2013 12:00 AM P DT NBASE [facility]AN [facility] - 014 12:00 AM [address] [facility] [facility] - 11/25/2013 12:00 AM PDT P Pooja Barton MD - 11/24/2013 3:50 PM PDTAssociated Order(s): EP LOOP RECORDER IMPLA NT/REMOVAL LOOP RECORDER IMPLANTATION PATIENT NAME: Priscila Brasher : 1940: AGE: 73 y.o. PRIMARY CARE: David Arias MD SURGEON: Pooja Owens MD DATE OF PROCEDURE: 11/24/2013 PROCEDURES PERFORMED: 1. Implantation of a Medtronic loop recorder. INDICATIONS: 1. atrial fibrillation/arrhythmia DESCRIPTION OF PROCEDURE: After informed consent was obtained, the patient was taken to the operating room. 1 g of c efazolin was given intravenously. Patient was hooked up to EKG, pulse oximetry and blood pr essure monitoring. All parameters were kept stable during procedure. The Medtronic device circulation sales representative was present in the operating room. Patient received 1 mg of Versed and 50 mc g of fentanyl intravenously for conscious sedation during the procedure. The left pectoral area was prepped and draped in the standard fashion. Under sterile technique, and 30 mL of 1% local Xylocaine without epinephrine injection for local anesthesia, the incision was made . Incision was extended all the way down and the pocket was formed. The Medtronic loop sacha rder was inserted in the Diagonal axis which was predetermined to provide the best vector. Recorder was anchore d down using 2, 2-0 silks.The pocket was irrigated and dried. Hemostasis was obtained. A t wo layer running closure was performed with a 2-0 Vicryl for prepectoral fascia and subcutan eous fatty tissue. Continuous subcuticular suturing was performed with a 4-0 Vicryl. The s kin sealed with a layer of Dermabond. Estimated blood loss was 5 mL. COMPLICATIONS: There were no complications. The patient tolerated the procedure well. DEVICE INFORMATION: A. Loccit (ML4D) loop recorder, model #: [id number], serial #: [id number]. DEVICE SETTINGS: VT: 340 ms, 60 beats. Fast VT: 260 ms, and 30/40 beats. Bradycardia: 1500 ms, a 4 beats. Asystole: 3 seconds. Pooja Owens MD 11/24/2013 15:50 docu mented in this encounter Miscellaneous Notes Plan of Care - [facility] SCAN [facility] - 11/25/2013 12:00 AM PDT iscellaneous - ONBASE SCAN [facility] - 11/25/2013 12:00 AM PDTElec tronically signed by Arnol Brothers at 11/25/2013 11:39 AM PDTdocumented in this encounter Plan of Treatment Not on filedocumented as of this encounter Procedures + +--------+ + + + | Procedure Name | Priori | Date/Time | Associated Diagnosis | Comments | | | ty | | | | + +--------+ + + + | ECG 12 LEAD | Routin | 11/25/2013 | | Results for this | | | e | 7:11 AM | | procedure are in the | | | | PDT | | results section. | + +--------+ + + + | XR CHEST PA AND | STAT | 11/24/2013 | | Results for this | | LATERAL | | 3:56 PM | | procedure are in the | | | | PDT | | results section. | + +--------+ + + + | EP LOOP RECORDER | Routin | 11/24/2013 | Palpitations | Results for this | | | e | 3:52 PM | Dizziness | procedure are in the | | | | PDT | Lightheadedness | results section. | + +--------+ + + + | IMPLANT - LOOP | | 11/24/2013 | Palpitations | | | RECORDER ([id number]) | | 3:05 PM | Dizziness and | | | | | PDT | giddiness | | + +--------+ + + + documented in this encounter Results ECG 12 lead (11/25/2013 7:11 AM PDT) + + + | Narrative | Performed At | + + + | Ramirez Singh MD 11/25/2013 7:11 Adult ECG Report | | | Name: Priscila Brasher Age: 73 y.o. Gender: female 11/24/13 at | | | 16:49 Narrative Interpretation: Sinus rhythm. Normal axis. | | | Normal intervals. | | + + + + + | Procedure Note | + + | Ramirez Singh MD - 11/25/2013 7:10 AM PDT Adult ECG Report | | | | Name: Priscila Brasher | | Age: 73 y.o. | | Gender: female | | | | 11/24/13 at 16:49 | | Narrative Interpretation: Sinus rhythm. Normal axis. Normal intervals. | + + XR Chest PA and Lateral (11/24/2013 3:56 PM PDT) + + | Specimen | + + | | + + + + + | Narrative | Performed At | + + + | XR CHEST PA AND LATERAL. 11/24/2013 3:56 PM HISTORY: post loop | MISCELANIOUS | | recorder . COMPARISON: CT chest 11/10/2010 FINDINGS: | LAB | | Electronic device is seen superimposed over the left hemithorax. | | | Heart size within normal limits. Large hiatal hernia with | | | air-fluid level. Calcification of the aortic arch. Mediastinal | | | contours otherwise unremarkable. Hyperexpansion of the lungs with | | | increased lucency in the upper lung zones, as can be seen with | | | emphysematous COPD. No focal consolidation to suggest pneumonia. | | | No pleural effusion or pneumothorax. There is diffuse degenerative | | | disc disease with exaggeration of the thoracic kyphosis. | | | Osteopenia. No acute osseous or soft tissue abnormalities. | | | IMPRESSION - Electronic device superimposed over the left | | | hemithorax. Emphysematous COPD. Large hiatal hernia. No focal | | | consolidation to suggest pneumonia. Dictated and Signed by: Lit | | | MD Sumit Electronically signed: 11/24/2013 5:03 PM | | + + + + + | Procedure Note | + + | Jerrell, Rad Results In - 11/24/2013 5:06 PM PDT XR CHEST PA AND LATERAL. 11/24/2013 | | 3:56 PMHISTORY: post loop recorder . COMPARISON: CT chest 11/10/2010FINDINGS:Electronic | | device is seen superimposed over the left hemithorax. Heart sizewithin normal limits. | | Large hiatal hernia with air-fluid level. Calcificationof the aortic arch. Mediastinal | | contours otherwise unremarkable. Hyperexpansion of the lungs with increased lucency in | | the upper lung zones, ascan be seen with emphysematous COPD. No focal consolidation to | | suggestpneumonia. No pleural effusion or pneumothorax. There is diffuse | | degenerativedisc disease with exaggeration of the thoracic kyphosis. Osteopenia. No | | acuteosseous or soft tissue abnormalities.IMPRESSION -Electronic device superimposed | | over the left hemithorax. Emphysematous COPD. Large hiatal hernia. No focal | | consolidation to suggest pneumonia.Dictated and Signed by: Lit Arana MD | | Electronically signed: 11/24/2013 5:03 PM | |pneumonia. No pleural effusion or pneumothorax. There is diffuse degenerative | |disc disease with exaggeration of the thoracic kyphosis. Osteopenia. No acute | |osseous or soft tissue abnormalities. | | | | | |IMPRESSION - | |Electronic device superimposed over the left hemithorax. Emphysematous COPD. | |Large hiatal hernia. No focal consolidation to suggest pneumonia. | | | |Dictated and Signed by: Lit Arana MD | | Electronically signed: 11/24/2013 5:03 PM | + + + +---------+ + + | Performing | Address | City/State[facility] | Phone Number | | Organization | | | | + +---------+ + + | [facility] | | | [phone] | + +---------+ + + | MISCELANIOUS LAB | | | [phone] | + +---------+ + + documented in this encounter Visit Diagnoses + + | Diagnosis | + + | Tachycardia - Primary Tachycardia, unspecified | + + | Emphysema Other emphysema | + + documented in this encounter Administered Medications + +---------+ +------+-------+------+ | Medication Order | MAR | Action | Dose | Rate | Site | | | Action | Date | | | | + +---------+ +------+-------+------+ | dextrose 5% and sodium chloride | New Bag | 11/25/19 | | 125 | | | 0.45% (D5 1/2 NS) infusion at | | 14 1:06 | | mL/hr | | | 125 mL/hr, Intravenous, FIXED | | PM PDT | | | | | VOLUME (see admin instruction), | | | | | | | Starting 11/24/13 at 1300, For | | | | | | | loop recorder implant, infuse in | | | | | | | arm on procedure side, limit of | | | | | | | 1 L, Pre-op | | | | | | + +---------+ +------+-------+------+ +---+---+ | | | +---+---+ + +-------+ +--------+---+---+ | fentaNYL injection PRN, Pain, | Given | 11/25/19 | 50 mcg | | | | Starting Fri11/24/13 at 1533 | | 14 3:33 | | | | | | | PM PDT | | | | + +-------+ +--------+---+---+ +---+---+ | | | +---+---+ + +-------+ +------+---+---+ | metoclopramide (REGLAN) 5 mg/mL | Given | 11/25/19 | 5 mg | | | | injection 5 mg 5 mg, | | 14 5:00 | | | | | Intravenous, EVERY 6 HOURS PRN, | | PM PDT | | | | | Nausea, Vomiting, Starting Fri | | | | | | | 11/24/13 at 1626, Post-op/Phase II | | | | | | + +-------+ +------+---+---+ +---+---+ | | | +---+---+ + +-------+ +------+---+---+ | midazolam (VERSED) 5 mg/mL | Given | 11/25/19 | 1 mg | | | | injection PRN, Anxiety, Starting | | 14 3:34 | | | | | 11/24/13 at 1534 | | PM PDT | | | | + +-------+ +------+---+---+ +---+---+ | | | +---+---+ + +-------+ +------+---+---+ | ondansetron (ZOFRAN) injection | Given | 11/25/19 | 4 mg | | | | 4 mg 4 mg, Intravenous, EVERY 8 | | 14 4:40 | | | | | HOURS PRN, Nausea, Vomiting, | | PM PDT | | | | | Starting 11/24/13 at 1626, | | | | | | | Post-op/Phase II | | | | | | + +-------+ +------+---+---+ +---+---+ | | | +---+---+ documented in this encounter
--- OUTSIDE RECORDS SUMMARY | ~2019-12-11 | XMS | Encounter Summary ---
Demographics + + + | Address | [address] | | | [place] [address] | + + + | Home Phone | | + + + | Preferred Language | Unknown | + + + | Marital Status | Single | + + + | Restoration Affiliation | Unknown | + + + | Race | White | + + + | Ethnic Group | Not or | + + + Author + + + | Author | [facility] | | | and [place] | + + + | Organization | [facility] | | [...] Team Providers + +------+ + | Care Computer Systems Software Engineer Name | Role | Phone | + +------+ + | Krystyna Luciano MD | PCP | | + +------+ + Encounter Details +--------+ + + + + | Date | Type | Department | Care Team | Description | +--------+ + + + + | 12/28/ | Hospital | [facility] | Luna, Martell Escalona MD | | | 2016 - | Encounter | [facility] | [address] [place] | | | | | CARE FLOOR [address] | [address] [place], [place] | | | 12/31/ | | [address] | [address] | | | 2016 | | [place], [place] | | | | | | [address] | | | | | | [phone] | | | +--------+ + + + [...] + + + | Blood Pressure | 104/57 | 01/01/2016 12:19 PM | | | | | PDT | | + + + + + | Pulse | 94 | 01/01/2016 12:19 PM | | | | | PDT | | + + + + + | Temperature | 36.9 C (98.4 F) | 01/01/2016 12:19 PM | | | | | PDT | | + + + + + | Respiratory Rate | 18 | 01/01/2016 12:19 PM | | | | | PDT | | + + + + + | Oxygen Saturation | - | - | | + + + + + | Inhaled Oxygen | - | - | | | Concentration | | | | + + + + + | Weight | 69.4 kg (153 lb) | 01/01/2016 12:19 PM | | | | | PDT | | + + + + + | Height | 162.6 cm (5' 4") | 01/01/2016 12:19 PM | | | | | PDT | | + + + + + | Body Mass Index | 26.26 | 01/01/2016 12:19 PM | | | | | PDT | | + + + + + documented in this encounter Discharge Summaries Mark Morrow MD - 01/01/2016 11:15 AM PDTFormatting of this note might be differe nt from the original. Discharge Summaries by Mark Morrow MD at 01/01/16 1115 Author: Mark Morrow MD Service: Hospitalist Author Type: Physician Filed: 01/02/16 1606 Date of Service: 01/01/161114 Status: Addendum Material Movers: Mark Morrow MD (Physician) Related Notes: Original Note by Mark Morrow MD (Physician) filed at 01/01/16 11 32 [facility] Service: Hospitalist Physician Discharge Summary Pt: Priscila Brasher AGE/SEX: 75 y.o. female ROOM: 4449/4449-1 PCP: KRYSTYNA LUCIANO : 1940 Admit date: 12/29/2015 Discharge date and time: 01/01/16 Admitting Physician: Martell Luna MD Discharge Physician: Mark Morrow MD Consults: Dr. 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 * Secondary Discharge Diagnoses: Discharged Condition: stable Significant Diagnostic Studies: Cardiac Cath: 1. No angiographically significant coronary artery disease. There are nonhemodynamically significant stenoses in the proximal LAD and early mid RCA. 2. Widely patent overlapping drug-eluting stents in the mid-distal LAD and distal RCA into the posterolateral ventricular branch. 3. Normal left ventricular systolic function. 4. False-positive nuclear stress test. 5. Noncardiac chest pain. HPI and Hospital Course: Ms. Brasher is a 75-year-old female who has past medical history of COPD, lymphoma in [facility], coronary artery disease, with stenting to the LAD and RCA [place] [address] Dumont. The pa kendal presented with chest discomfort and had positive stress test and was scheduled for william ctive catheterization. However, the patient came to the emergency department after having an other episode of substernal chest pain with some radiation to the jaw associated with excess juan manuel sweating and dizziness. Hence, she went to [facility] initially and was parish sferred to this facility for further management. HOSPITAL COURSE She was ruled out for acute IL. Dr. Mane saw the patient and performed coronary angiogram. It did not show any angiographically significant coronary artery disease and had widely burton nt overlapping stents in the more distal LAD and distal RCA. The patient also had normal gurinder tricular systolic function, hence etiology of recurrent chest pain was atypical in nature. O n further questioning, the patient mentioned that she has been feeling particularly tired fo r the last couple of months. The patient was diagnosed with sleep apnea syndrome but could n ot tolerate CPAP machine. She uses oxygen at night. She also has mild depression. She has hi story of migraine headaches and uses Botox injections for that. She was recently getting sin us pressure and was started on azithromycin yesterday by my colleague, Dr. Malave. This morning, the patient's sinus pressure is better with a low dose of morphine and there is no recurrence of chest pain. Hence, she will be discharged to home to be followed by her primary care physician. She sees a block piler for the sleep apnea syndrome and I have adv ised the patient that her fatigue and generalized weakness could be related to untreated obs tructive sleep apnea syndrome and the patient may benefit from using CPAP machine; however, as mentioned above, she is intolerant to using mask over her face and nose. There are newer prongs that go into the nose and are called nasal pillows and she may be able to tolerate th em. However, for that, she should follow with her primary care physician and block piler. I will give her a prescription for azithromycin that she should take for 5 more days to comp lete a 6 day course of antibiotics. Discharge Vitals: Filed Vitals: 12/31/15 2254 01/01/16 0411 01/01/16 0710 01/01/16 1000 BP: 99/53 102/55 136/70 Pulse: 68 67 67 62 Temp: 98.1 F (36.7 C) 97.8 F (36.6 C) 98.6 F (37 C) TempSrc: Oral Oral Oral Resp: 18 16 16 16 Height: Weight: 69.4 kg (153 lb) SpO2: 95% 91% 96% 90% Discharge Exam: Constitutional: Alert and oriented to person, place, and time. Appears well-developed and w ell-nourished. Cardiovascular: Normal rate, regular rhythm, normal heart sounds with S1 and S2 and intact distal pulses. Exam reveals no gallop and no friction rub. No murmur heard. Pulmonary/Chest: Effort normal and breath sounds normal. No stridor. No respiratory distres s. no wheezes. no rales. exhibits no tenderness. Abdominal: Soft. Bowel sounds are normal. exhibits no distension and no mass. There is no t enderness. There is no rebound and no guarding. Musculoskeletal: Normal range of motion.exhibits no tenderness. exhibits no edema. Neurological: Alert and oriented to person, place, and time. No cranial nerve deficit. Ex hibits normal muscle tone. Coordination normal. Skin: Skin is warm and dry. No rash noted. No erythema. No pallor. Psychiatric: Has a normal mood and affect. Behavior is normal. Judgment normal. LABS: Recent Labs Lab 01/01/1643712/31/1543812/29/15 1756 WBC 8.28 9.79 11.50* HGB 12.0 12.4 13.7 HCT 36.9 38.5 42.2 PLT 196 195 221 NEUTOPHILPCT 39.59 49.57 -- MONOPCT 11.12 9.35 -- Recent Labs Lab 01/01/1643712/31/15 04312/30/15 0714 NA 146* 144 144 K 3.7 3.8 3.7 CL 112* 111* 112* CO2 27 26 24 BUN 13 11 17 CREATININE 0.7 0.5 0.5 PROT -- 6.1* -- BILITOT -- 0.5 -- ALT -- 58 -- AST -- 47* -- Invalid input(s): LABALBU Recent Labs Lab 12/30/15 0714 MG 2.0 No results for input(s): AMYLASE in the last 168 hours. No results for input(s): PHART, PO2ART, YNZ0MKB, D0DOFIZN, BEART in the last 168 hours. Recent Labs Lab 12/30/15 0714 12/30/15 0009 12/29/15 1756 APTT 80* 110* 25 INR -- -- 1.0 Recent Labs Lab 12/30/15 0009 12/29/15 1757 TROPONINI <0.020 <0.020 CKMBINDEX UNABLE TO CALCULATE UNABLE TO CALCULATE Disposition: Home or Self Care Patient Instructions: Medication List START taking these medications azithromycin 250 MG tablet QTY: 5 tablet Refills: 0 Commonly known as: ZITHROMAX Take 1 tablet by mouth daily. TAKE TWO TABLETS BY MOUTH NOW then ONE TABLET DAILY DAY 2-5 Indications: Sinus Irritation and Congestion cetirizine 10 MG tablet QTY: 30 tablet Refills: 11 Commonly known as: ZyrTEC Take 1 tablet by mouth daily. CONTINUE taking these medications aspirin 81 MG tablet Refills: 0 atorvastatin 40 MG tablet QTY: 90 tablet Refills: 3 Commonly known as: LIPITOR Take 1 tablet by mouth nightly. diclofenac 75 MG EC tablet Refills: 0 Commonly known as: VOLTAREN fish oil omega-3 fatty acids 1000 MG capsule Refills: 0 fluticasone 50 MCG/BLIST diskus inhaler Refills: 0 Commonly known as: FLOVENT DISKUS isosorbide mononitrate 30 MG 24 hr tablet QTY: 90 tablet Refills: 3 Commonly known as: IMDUR Take 1 tablet by mouth daily. metoprolol 25 MG tablet Refills: 0 Commonly known as: LOPRESSOR misoprostol 200 MCG tablet Refills: 0 Commonly known as: CYTOTEC nitroGLYCERIN 0.4 MG SL tablet Refills: 0 Commonly known as: NITROSTAT topiramate 100 MG tablet Refills: 0 Commonly known as: TOPAMAX WOMENS 50+ MULTI VITAMIN/MIN Tabs Refills: 0 Where to Get Your Medications You need to sisal picker these prescriptions. We sent them to a specific pharmacy, so go there to get them. [id number] [place] - [address] - azithromycin 250 MG tablet - cetirizine 10 MG tablet [address] [place] [place] [address] Activity: activity as tolerated Diet: cardiac diet Wound Care: keep wound clean and dry Total time of discharge: 35 minutes. This included talking to patient, examining patient, d iscussing outpatient plan of care, reconciling home medications and dictating discharge summ moses. Follow-up with PCP in 1 week. Signed: Mark Morrow MD 01/01/2016 11:16 AM documented in this encounter Medications at Time [...] Progress Notes Conversion Transaction, Provider Unknown - 01/01/2016 3:18 PM PDTFormatting of this note m ight be different from the original. Nurse Progress Note by Barb Hoover RN at 01/01/161517 Author: Barb Hoover RN Service: (none) Author Type: Registered Nurse Filed: 01/01/16 1520 Date of Service: 01/01/161517 Status: Signed Material Movers: Barb Hoover RN (Registered Nurse) Pt is discharging in stable condition to home. She states understanding of all discharge in structions which were given in both oral and written form. All questions have been answered to pt's satisfaction onver jill Transaction, Provider Unknown - 01/01/2016 11:56 AM PDT Case Management by Meg Fiore RN at 01/01/16 115 Author: Meg Fiore RN Service: (none) Author Type: Registered Nurse Filed: 01/01/161155 Date of Service: 01/01/161155 Status: Signed Material Movers: Meg iFore RN (Registered Nurse) 01/01/16 1100 Anticipated Disposition Facility Type Home Medicare Important Message (STEPHANIE) Given Met with pt regaridng d/c plan. Pt will return home, son to transport. Pt indicates no need s at this time Barbara Fiore RN, CM onver jill Transaction, Provider Unknown - 01/01/2016 6:53 AM PDT Nurse Progress Note by Lidia Lennon RN at 01/01/16652 Author: Lidia Lennon RN Service: (none) Author Type: Registered Nurse Filed: 01/01/1654 Date of Service: 01/01/16652 Status: Signed Material Movers: Lidia Lennon RN (Registered Nurse) Pain managed until morning. Pt received one PRN dose of IV morphine for headache. VSS. Thi Lennon RN onver jill Transaction, Provider Unknown - 12/31/2015 6:43 PM PDT Nurse Progress Note by Meg Case RN at 12/31/151842 Author: Meg Case RN Service: (none) Author Type: Registered Nurse Filed: 12/31/151846 Date of Service: 12/31/151842 Status: Signed Material Movers: Meg Case RN (Registered Nurse) Tylenol given X1 for Tmax of 100.2. Morphine given X2 early in the shift and patient had ma naged well with her pain since then. Reported relief of nausea after phenergan dose and has not required any more antiemetics since noon. No other concerns reported. States she feels a lot better. Meg Case 12/31/2015 onver jill Transaction, Provider Unknown - 12/31/2015 5:17 PM PDT Case Management by EVELIN Reddy at 12/31/151716 Author: EVELIN Reddy Service: (none) Author Type: Commercial Lending Assistant Filed: 12/31/151716 Date of Service: 12/31/151716 Status: Signed Material Movers: EVELIN Reddy (Commercial Lending Assistant) 12/31/151713 Discharge Planning Evaluation Admitting Diagnosis COPD and CAD Readmission No Living Arrangements Alone Support Systems Children;Family members;Friends/neighbors Type of Residence Private residence House type House-1 story Steps to enter 4 (with newly installed railings) Independent with ADL's Yes Independent with Mobility Yes Home Care Services No Mental Status Oriented Prior functional status 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 She uses no DME or Home O2. She is not on blood thinners except for aspirin. Resources Transportation issues Yes (She is calling a friend but right now she thinks it won't happen.) Name of Pharmacy [facility] Anticipated Disposition Facility Type Home yee, Al Santillan MD - 12/31/2015 8:30 AM PDT Progress Notes by Al Malave MD at 12/31/15829 Author: Al Malave MD Service: (none) Author Type: Physician Filed: 12/31/15838 Date of Service: 12/31/15829 Status: Addendum Material Movers: Al Malave MD (Physician) Related Notes: Original Note by Al Malave MD (Physician) filed at 12/31/15837 [facility] Service: Hospitalist Progress Note Pt: Priscila Brasher AGE/SEX: 75 y.o. female : 1940 ROOM: [facility]44-1 REQUESTING PROVIDER: Al Malave MD TODAY'S DATE: 12/31/2015 Hospital Day: LOS: 2 days 75 years old lady with COPD, lymphoma in remission, CAD with a history of LAd and RCA stent ing; recently saw by crediologHelen Dumont with Angina on exertionhad a positive stress t est and is scheduled for an elective cath. While waiting Developed chest pain and admitted evaluted by cardiology plan cath On no agniographic Sig CAD but Today patient nause with sinus pressure lightheaded( she lives per herself ) SUBJECTIVE she states no SP or SOB but her maxillary sinus pressure tension lightheadadeness in term causing nause Scheduled Medications aspirin 81 mg Oral Daily atorvastatin 40 mg Oral Nightly azithromycin 250 mg Oral Daily cetirizine 10 mg Oral Daily fish oil omega-3 fatty acids 1 g Oral Daily isosorbide mononitrate 30 mg Oral Daily lidocaine 20 mL Infiltration Once metoprolol 25 mg Oral QPM misoprostol 200 mcg Oral BID mometasone 220 mcg Inhalation Daily multivitamin with minerals 1 tablet Oral Daily topiramate 50 mg Oral Daily Continuous Infusions heparin 50 units/mL 9 Units/kg/hr (12/30/15 0250) PRN Medications acetaminophen OR acetaminophen, heparin (porcine) 5000 unit/0.5mL, heparin (porcine) 50 00 unit/0.5mL, morphine OR morphine OR morphine, nitroGLYCERIN, ondansetron OR o ndansetron, polyethylene glycol, zolpidem Allergy: Allergies Allergen Reactions Penicillins Angioedema Sulfa Antibiotics Rash Codeine Nausea and Vomiting Imdur [Isosorbide Dinitrate] Nausea and Vomiting and Headache Tetanus Toxoid GI Distress OBJECTIVE Vitals: Patient Vitals for the past 24 hrs: BP Temp Temp src Pulse Resp SpO2 Weight 12/31/15 0705 122/62 mmHg 98.7 F (37.1 C) Oral 73 16 93 % - 12/31/15 0336 108/54 mmHg 98.2 F (36.8 C) Oral 73 17 99 % 70.4 kg (155 lb 3.3 oz) 12/30/15 2335 124/60 mmHg 98.5 F (36.9 C) Oral 92 16 91 % - 12/30/15 1923 118/62 mmHg 98.7 F (37.1 C) Oral 84 14 94 % - 12/30/15 1600 116/64 mmHg - - 73 - 96 % - 12/30/15 1527 122/66 mmHg 98 F (36.7 C) Oral 80 16 96 % - 12/30/15 1500 125/71 mmHg - - 84 - 96 % - 12/30/15 1430 115/67 mmHg - - 65 - 95 % - 12/30/15 1400 114/63 mmHg - - 58 - 96 % - 12/30/15 1300 118/64 mmHg - - 71 - 92 % - 12/30/15 1200 109/58 mmHg - - 65 - 93 % - 12/30/15 1007 - - - - - 94 % - 12/30/15 0900 - - - - - 90 % - 12/30/15 0834 100/58 mmHg 97.8 F (36.6 C) Oral 68 18 90 % - I&O Detailed Table: Intake/Output Summary (Last 24 hours) at 12/31/15 0830 Last data filed at 12/31/15 0500 Gross per 24 hour Intake 1789 ml Output 900 ml Net 889 ml Patient Vitals for the past 96 hrs: Weight 12/31/15 0336 70.4 kg (155 lb 3.3 oz) 12/30/15 0350 69.1 kg (152 lb 5.4 oz) 12/29/15 1750 68.4 kg (150 lb 12.7 oz) Hemodynamics Last 24hrs: Examination: HEENT-perrel bilateral maxillary presure No temporal tenderness NEck Supple no JVD, no L/N lung- BS+ + no crepts No wheez heart S1 S2 no murmur abdomen- soft BS+ no tendernessno guarding or rebound EXt no edema REMOTE SENSING RESEARCH SCIENTIST alert orientated time three no focality LABS: Recent Labs Lab 12/31/15 0439 12/29/15 1756 WBC 9.79 11.50* HGB 12.4 13.7 HCT 38.5 42.2 PLT 195 221 NEUTOPHILPCT 49.57 -- MONOPCT 9.35 -- Recent Labs Lab 12/31/15 0439 12/30/15 0714 NA 144 144 K 3.8 3.7 CL 111* 112* CO2 26 24 BUN 11 17 CREATININE 0.5 0.5 PROT 6.1* -- BILITOT 0.5 -- ALT 58 -- AST 47* -- Phosphorus: Recent Labs Lab 12/30/15 0714 PHOS 3.2 Recent Labs Lab 12/30/15 0714 MG 2.0 No results for input(s): AMYLASE in the last 168 hours. No results for input(s): PHART, PO2ART, PET4GKT, D3QBAFXO, BEART in the last 168 hours. Recent Labs Lab 12/30/1514 12/30/15 0009 12/29/15 175 APTT 80* 110* 25 INR -- -- 1.0 No results for input(s): TSH, T3FREE, FREET4 in the last 168 hours. 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 wisam pectoris (HCC) ASSESSMENT & PLAN Principle Coronary artery disease involving [place] coronary artery of [place] heart with unstable a ngina pectoris (HCC) cath On no agniographic Sig CAD ASA statin betablocker imdure and statin No CP or SOB d/c heparin drip WBC Now normal cardicenzymes were neg acute maxillary sinusist with headache nause zyrectic not help Start Z pack 5 days antinuae med for now zofran and prometahzine as need moniter as lives by herself concern with continue dizziness and nause will moniter next 24 hr if stable will d/c home Existing COPD- stable on asmanex DVT pro moniter as lives by herself concern with continue dizziness and nause will moniter next 24 hr if stable will d/c home cardiology clear to d/c in term of her admit presentation AL MALAVE MD MD 12/31/2015 8:30 AM yee, Al Santillan MD - 12/30/2015 8:03 AM PDT Progress Notes by Al Malave MD at 12/30/15802 Author: Al Malave MD Service: (none) Author Type: Physician Filed: 12/30/15 1748 Date of Service: 12/30/15802 Status: Addendum Material Movers: Al Malave MD (Physician) Related Notes: Original Note by Al Malave MD (Physician) filed at 12/30/15811 [facility] Service: Hospitalist Progress Note Pt: Priscila Brasher AGE/SEX: 75 y.o. female : 1940 ROOM: 44/4449-1 REQUESTING PROVIDER: Al Malave MD TODAY'S DATE: 12/30/2015 Hospital Day: LOS: 1 day 75 years old lady with COPD, lymphoma in remission, CAD with a history of LAd and RCA sten ting; recently saw by crediologHelen Dumont with Angina on exertionhad a positive stress t est and is scheduled for an elective cath. While waiting Developed chest pain and admitted evaluted by cardiology plan cath today SUBJECTIVE no cP at visit time Scheduled Medications aspirin 81 mg Oral Daily atorvastatin 40 mg Oral Nightly fish oil omega-3 fatty acids 1 g Oral Daily isosorbide mononitrate 30 mg Oral Daily metoprolol 25 mg Oral QPM misoprostol 200 mcg Oral BID mometasone 220 mcg Inhalation Daily multivitamin with minerals 1 tablet Oral Daily topiramate 50 mg Oral Daily Continuous Infusions heparin 50 units/mL 9 Units/kg/hr (12/30/15 0250) PRN Medications acetaminophen OR acetaminophen, heparin (porcine) 5000 unit/0.5mL, heparin (porcine) 50 00 unit/0.5mL, morphine OR morphine OR morphine, nitroGLYCERIN, ondansetron OR o ndansetron, polyethylene glycol, zolpidem Allergy: Allergies Allergen Reactions Penicillins Angioedema Sulfa Antibiotics Rash Codeine Nausea and Vomiting Imdur [Isosorbide Dinitrate] Nausea and Vomiting and Headache Tetanus Toxoid GI Distress OBJECTIVE Vitals: Patient Vitals for the past 24 hrs: BP Temp Temp src Pulse Resp SpO2 Height Weight 12/30/15 0350 93/52 mmHg 97.8 F (36.6 C) Oral 64 16 93 % - 69.1 kg (152 lb 5.4 oz) 12/29/15 2343 101/58 mmHg 97.1 F (36.2 C) Oral 67 20 91 % - - 12/29/15 1927 111/59 mmHg 97.8 F (36.6 C) Oral 71 18 92 % - - 12/29/15 1831 - - - 77 - - - - 12/29/15 1750 - - - - - - 1.626 m (5' 4") 68.4 kg (150 lb 12.7 oz) 12/29/15 1709 138/72 mmHg 98.4 F (36.9 C) Oral 69 20 95 % - - I&O Detailed Table: Intake/Output Summary (Last 24 hours) at 12/30/15 0803 Last data filed at 12/30/15 0536 Gross per 24 hour Intake 254.6 ml Output 100 ml Net 154.6 ml Patient Vitals for the past 96 hrs: Weight 12/30/15 0350 69.1 kg (152 lb 5.4 oz) 12/29/15 1750 68.4 kg (150 lb 12.7 oz) Hemodynamics Last 24hrs: Examination: HEENT-perrel NEck Supple no JVD, no L/N lung- BS+ + no crepts No wheez heart S1 S2 no murmur abdomen- soft BS+ no tenderness EXt no edema REMOTE SENSING RESEARCH SCIENTIST alert orientated time three no focality LABS: Recent Labs Lab 12/29/15 1756 WBC 11.50* HGB 13.7 HCT 42.2 PLT 221 No results for input(s): NA, K, CL, CO2, BUN, CREATININE, CALCIUM, PROT, BILITOT, ALKPHOS, ALT, AST, GLUCOSE in the last 168 hours. Invalid input(s): LABALBU Phosphorus: No results for input(s): PHOS in the last 168 hours. No results for input(s): MG in the last 168 hours. No results for input(s): AMYLASE in the last 168 hours. No results for input(s): PHART, PO2ART, ZJG5PAP, D8ZUAPXT, BEART in the last 168 hours. Recent Labs Lab 12/30/15 0009 12/29/15 1756 APTT 110* 25 INR -- 1.0 No results for input(s): TSH, T3FREE, FREET4 in the last 168 hours. Recent Labs Lab 12/30/15 0009 12/29/15 1757 TROPONINI <0.020 <0.020 CKMBINDEX UNABLE TO CALCULATE UNABLE TO CALCULATE PROBLEM LIST Active Problems: COPD (chronic obstructive pulmonary disease) ([facility]) Coronary artery disease involving [place] coronary artery of [place] heart with unstable an wisam pectoris ([facility]) ASSESSMENT & PLAN Active Problems: Coronary artery disease involving [place] coronary artery of [place] heart with unstable angina pectoris ([facility]) cath plan today depends on finding If indicated will need PCI or CAB G ASA statin betablocker heparin drip on board as well as imdure LDL 109 teaget <100 on statin WBC 11 can be recative with acute pathology cardicenzymes were neg Existing COPD- stable on asmanex DVT pro AL MALAVE MD MD 12/30/2015 8:03 AM sinus congestion Compliant afebril no maxillary tenderness start zyrectc 10 mg po qd documented in this encounter H&P Notes Martell Luna MD - 12/29/2015 5:34 PM PDT H&P by Martell Luna MD at 12/29/15 1737 Author: Martell Luna MD Service: Hospitalist Author Type: Physician Filed: 12/29/151745 Date of Service: 12/29/151733 Status: Addendum Material Movers: Martell Luna MD (Physician) Related Notes: Original Note by Martell Luna MD (Physician) filed at 12/29/15 174 [facility] Service: Hospitalist Admission History & Physical Pt: Priscila Brasher AGE/SEX: 75 y.o. female ROOM: [address] [place] [address] PCP: KRYSTYNA LUCIANO : 1940 TODAY'S DATE: 12/29/2015 Date of Admission: 12/29/2015 Chief Complaint: Chest pain History of Present Illness: The patient is a 75 y.o. female with significant past medical history of COPd, lymphoma in remission, CAD with a history of LAd and RCA stenting who recently saw Dr Dumont with chest discomfort with exertion who had a positive stress test and is scheduled for an elective ca th. She states such pains have been occuring for about 1 month. This am while preparing to go to work she developed substernal chest pressure with radiatio n to her jaw associated with diaphoresis and dizziness and hence presented to [facility]. She was ruled out for STEMI and transferred her for further management. Pain is currently g one, but she states it intermittently returns. 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 Sleep apnea NSTEMI (non-ST elevated myocardial infarction) ([facility]) 12/15/2013 S/P angioplasty with stent 12/24/2013 Chest pain with high risk of acute coronary syndrome 12/24/2013 PSHx: Past Surgical History Procedure Laterality Date Tonsillectomy Hysterectomy Appendectomy Splenectomy Cholecystectomy Breast lumpectomy left breast Hernia repair Eye surgery Cataract extraction Colonoscopy Unlisted procedure arthroscopy rashmi hips replaced, right lower leg broken and fixed Coronary angioplasty with two stents placed Prior To admission Meds: Prior to Admission medications Medication Sig Start Date End Date Taking? Authorizing Provider aspirin 81 MG tablet Take 81 mg by mouth daily. Historical Provider atorvastatin (LIPITOR) 40 MG tablet Take 1 tablet by mouth nightly. 12/05/15 Isaias Dumont MD diclofenac (VOLTAREN) 75 MG EC tablet Take 75 mg by mouth 2 (two) times daily. Historica l Provider fish oil omega-3 fatty acids 1000 MG capsule Take 1 g by mouth daily. Historical Provide r fluticasone (FLOVENT DISKUS) 50 MCG/BLIST diskus inhaler Inhale 1 puff into the lungs 2 (tw o) times daily. Historical Provider isosorbide mononitrate (IMDUR) 30 MG 24 hr tablet Take 1 tablet by mouth daily. 12/25/1512/06 Isaias Dumont MD metoprolol (LOPRESSOR) 25 MG tablet Take 25 mg by mouth every evening. Takes 1.5 tabs at be dtime Historical Provider misoprostol (CYTOTEC) 200 MCG tablet Take 200 mcg by mouth 2 (two) times daily. Historic al Provider Multiple Vitamins-Minerals (WOMENS 50+ MULTI VITAMIN/MIN) TABS Take 1 tablet by mouth daily . Historical Provider nitroGLYCERIN (NITROSTAT) 0.[address] 0.4 mg under the tongue every 5 (five) min utes as needed for Chest pain. Historical Provider topiramate (TOPAMAX) 100 MG tablet Take 50 mg by mouth daily. 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 appears well-developed and well-nouris hed. HEENT: Head: Normocephalic and atraumatic. Nose: Nose normal. Mouth/Throat: Oropharynx is clear and moist. Eyes: Conjunctivae and EOM are normal. Pupils are equal, round, and reactive to light. Righ t eye exhibits no discharge. Left eye exhibits no discharge. No scleral icterus. Neck: Normal range of motion. Neck supple. No JVD present. No tracheal deviation present. N o thyromegaly present. no cervical adenopathy. Cardiovascular: Normal rate, regular rhythm, normal heart sounds with S1 and S2, and intact distal pulses. Exam reveals no gallop and no friction rub. No murmur heard. Pulmonary/Chest: Effort normal and breath sounds normal. No stridor. No respiratory distres s. no wheezes. no rales. exhibits no tenderness. Abdominal: Soft. Bowel sounds are normal. exhibits no distension and no mass. There is no t enderness. There is no rebound and no guarding. Extremities/Musculoskeletal: Normal range of motion.exhibits no tenderness. exhibits no ed dora. Neurological: Alert and oriented to person, place, and time. Displays normal reflexes. No cranial nerve deficit. Exhibits normal muscle tone. Coordination normal. Skin: Skin is warm and dry. No rash noted. No erythema. No pallor. Psychiatric: Has a normal mood and affect. Behavior is normal. Judgment normal. Data: No results for input(s): WBC, HGB, HCT, PLT, NEUTOPHILPCT, MONOPCT in the last 168 hours. Invalid input(s): EOSPCT No results for input(s): NA, K, CL, CO2, BUN, CREATININE, CALCIUM, PROT, BILITOT, ALKPHOS, ALT, AST, GLUCOSE in the last 168 hours. Invalid input(s): LABALBU Phosphorus: Lab Results Component Value Date PHOS 3.5 12/25/2013 Invalid input(s): LABALBU No results for input(s): MG in the last 168 hours. No results for input(s): AMYLASE in the last 168 hours. No results for input(s): PHART, PO2ART, PXU0KPC, F1MVSZLG, BEART in the last 168 hours. No results for input(s): APTT, INR, PTT in the last 168 hours. No results for input(s): TSH, T3FREE, FREET4 in the last 168 hours. No results for input(s): CKTOTAL, TROPONINI, TROPONINT, CKMBINDEX in the last 168 hours. EKG: Imaging Studies: No results found. Assessment and Plan: 1. ACS/Unstable angina 2. CAD with history of LAD and RCA stenting 3. HTN 4. COPD - compensated Plan: Inpatient admission Cont to trend cardiac enzymes r/o NSTEMI Start heparin drip Cont ASA, metoprolol, lipitor, imdur and nitro drip if chest pain recurs Consulted Dr Mane Patient's old records and labs were reviewed in detail and summarized. Patient expected to stay more than 2 midnights due to his comorbidities and complexity of h is problem lists. Code Status: Prior Primary Care Physician: KRYSTYNA Luna MD, 12/29/2015 5:34 PM documented in this en counter Consult Notes Hayder Mane MD - 12/29/2015 9:11 PM PDTFormatting of this note might be different fro m the original. Consult* by Hayder Mane MD at 12/29/152110 Author: Hayder Mane MD Service: Cardiology Author Type: Physician Filed: 12/29/[id number] Date of Service: 12/29/152110 Status: Signed Material Movers: Hayder Mane MD (Physician) [facility] Service: Cardiology Initial Consult Note Date of Admission: 12/29/2015 Reason for Consultation: Recurrent episodes of chest pain Requesting Physician: Martell Luna MD History Obtained From: patient, review of records CHIEF COMPLAINT: Chest pressure HISTORY OF PRESENT ILLNESS The patient is a 75 y.o. female who is followed by Isaias Dumont M.D. She last saw him in the office on 12/25/15, and at that time, noting her episodes of chest pain and a moderate r isk nuclear stress test, she was scheduled for diagnostic cardiac catheterization on 01/11/16 . She has a history of two-vessel coronary artery disease, with a total of 4 intracoronary drug-eluting stents placed in 2013, in the LAD and RCA, and an acute NSTEMI 12/15/13. She had done well until approximately 2 months ago, when she began having increasing, severe fatigu e and generalized muscle weakness. She saw her primary care physician, but no diagnosis was made. She then began developing mid retrosternal chest pressure, with emotional stress or me dical exertion, sometimes even awakening her from sleep. Subjectively, she rates it "6" on a 1-10 scale in intensity, and it is associated with dyspnea. In the last week, it has also b egun radiating to both sides of her jaw, with episodes of diaphoresis. These episodes can la st 1-2 hours. This morning, on awakening she felt nauseated, but still went to work. She tho ught she was getting a sinus infection. 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 Collapse". She states that this is very similar to wh at she felt like with her IL. She went to the emergency room at [facility] in [facility], where her enzymes were negative. Her EKG showed minimal T-wave inversions in leads 3 and aVF, with nonspecific T-wave flattening in V6 and lead II. She was then transferred to [facility] for further evaluation and treatment. She is currently asympt omatic, on a heparin drip. REVIEW OF SYSTEMS CONSTITUTIONAL: No recent significant weight change, denies recent fever, chills, but has intermittent night sweats, and complains of recent, severe fatigue NEUROLOGIC: No history of CVA, TIA, but receives Botox injections for migraines. She has no history of seizures. She has had 2 remote syncopal events, with no known diagnoses, 2003 and 1998. She has intermittent numbness in her feet, and numbness and tingling in her arms bilaterally. She has intermittent episodes of mostly orthostatic dizziness, lightheadedness . EYES: No amaurosis, diplopia, recent visual changes or glaucoma ENT: She has bilateral hearing loss, tinnitus, denies any epistaxis, dysphagia. She note s that recently her saliva has a "syrupy, sweet taste". ENDOCRINE: No history of diabetes. No history of thyroid disorders or other endocrine prob lems. No excessive hunger, thirst. PULMONARY/SLEEP: She has dyspnea on exertion, denies orthopnea, paroxysmal nocturnal dyspn ea. No history of asthma, but has COPD/emphysema. She has Obstructive Sleep Apnea, uses ox ygen via nasal cannula at night, not CPAP. CARDIOVASCULAR: Recurrent episodes of chest p, as above. She has a history of CAD, NSTEM , at that time with 2 drug-eluting stents placed in the distal right coronary artery into the AV groove branch, and 2 months later, 2 more drug-eluting stents were placed in the distal LAD. No history of heart failure. No history of cardiac arrhythmias ever documented, but she did have a Qualiall Reveal implantable loop recorder placed and 2014 for palpitati ons - this showed no events on the last check, 04/14/15. She has a history of a heart murmur, and had rheumatic fever at age 7, with no evidence of rheumatic heart disease, but moderat e TR noted on echocardiography. She has mild pulmonary hypertension. No history of essenti al hypertension, hyperlipidemia. No edema, no claudication symptoms. -- Exercise Myoview stress test (12/05/15): Exercised 3:04 of Roderick protocol, 4.7 METS, max HR 133, stop due to dyspnea and unable to continue with the speed of the treadmill. She had nonlimiting chest pain, [address] segment depressions, Tripp treadmill score-6. SPECT myocardi al perfusion imaging was technically difficult due to motion artifact, but showed a moderate size, moderate intensity area of ischemia involving the mid and distal anterior wall and ap ex suggesting recurrent disease within the LAD territory. -- Echo (03/15/14): EF 55-60%, grade 1 diastolic dysfunction, Moderate TR, mild pulmonary hy pertension, RVSP 43.8 mmHg -- Lipid panel (12/23/14-on Lipitor 40 mg): TC-198, LDL-109, HDL-63, TG-132 GASTROINTESTINAL: She has a history of ulcerative colitis, which has been in remission for a number of years, but years ago had a lower GI bleed related to this. No recent abdominal pain, nausea, vomiting or diarrhea. Denies PUD, melena, hematochezia, hepatitis. RENAL/: Nephrolithiasis, 1967. No dysuria, hematuria, urinary urgency, hesitancy. 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 No h/o bleeding disorders, DVT, PE. She notes easy bruisability and bleedin g. She has a remote history of anemia, and had a blood transfusion with hip replacement [facility]. MUSCULOSKELETAL: No myalgias, but has osteoarthritis, with mostly handarthralgias. No hi story of rheumatologic or autoimmune diseases. CUTANEOUS: No rashes, but has dry skin and pruritus, no cutaneouslesions. PSYCHIATRIC: She has a history of depression, Denies anxiety or other psychiatric problem s. Past Medical History Diagnosis Date COPD (chronic obstructive pulmonary disease) ([facility]) Non Hodgkin's lymphoma ([facility]) 2008 Sleep apnea on nasal cannula O2 at night, not CPAP NSTEMI (non-ST elevated myocardial infarction) ([facility]) 12/15/2013 S/P angioplasty with stent 12/24/2013 Chest pain with high risk of acute coronary syndrome 12/24/2013 Coronary artery disease involving [place] coronary artery of [place] heart with unstable angina pectoris ([facility]) 12/15/2013 S/P PTCA (percutaneous transluminal coronary angioplasty) distal RCA>AV groove (12/15/13 - overlapping Promus 2.25x12, 2.25x16 MIGUEL); distal LAD ( -- overlapping Resolute Integrity 2.5x18, 2.25x14 MIGUEL) Ulcerative colitis (HCC) Lower gastrointestinal bleed from ulcerative colitis, many years ago Nephrolithiasis 1967 Migraine Botox injections Rheumatic fever 1947 Past Surgical History Procedure Laterality Date Tonsillectomy Hysterectomy Appendectomy Splenectomy NHL Cholecystectomy Breast lumpectomy left breast, benign mass Hernia repair incisional hernia repair (from splenectomy) Cataract extraction Bilateral Colonoscopy Coronary angioplasty distal RCA>AV groove (12/15/13 - overlapping Promus 2.25x12, 2.25x16 MIGUEL); distal LAD ( -- overlapping Resolute Integrity 2.5x18, 2.25x14 MIGUEL) Total hip arthroplasty Bilateral Knee arthroscopy Bilateral Medtronic reveal implantable loop recorder 11/24/2013 Allergies Allergen Reactions Penicillins Angioedema Sulfa Antibiotics Rash Codeine Nausea and Vomiting Imdur [Isosorbide Dinitrate] Nausea and Vomiting and Headache Tetanus Toxoid GI Distress Prescriptions prior to admission Medication Sig Dispense Refill Last Dose aspirin 81 MG tablet Take 81 mg by mouth daily. 12/28/2015 at Unknown time atorvastatin (LIPITOR) 40 MG tablet Take 1 tablet by mouth nightly. 90 tablet 3 12/28/19 16 at Unknown time fish oil omega-3 fatty acids 1000 MG capsule Take 1 g by mouth daily. 12/28/2015 at Un known time fluticasone (FLOVENT DISKUS) 50 MCG/BLIST diskus inhaler Inhale 1 puff into the lungs 2 (two) times daily. Past Week at Unknown time isosorbide mononitrate (IMDUR) 30 MG 24 hr tablet Take 1 tablet by mouth daily. 90 tabl et 3 12/28/2015 at Unknown time metoprolol (LOPRESSOR) 25 MG tablet Take 25 mg by mouth every evening. Takes 1.5 tabs a t bedtime 12/28/2015 at Unknown time misoprostol (CYTOTEC) 200 MCG tablet Take 200 mcg by mouth 2 (two) times daily. 2015 at Unknown time Multiple Vitamins-Minerals (WOMENS 50+ MULTI VITAMIN/MIN) TABS Take 1 tablet by mouth d aily. 12/28/2015 at Unknown time topiramate (TOPAMAX) 100 MG tablet Take 50 mg by mouth daily. 12/28/2015 at Unknown ti me diclofenac (VOLTAREN) 75 MG EC tablet Take 75 mg by mouth 2 (two) times daily. Unknow n at Unknown time nitroGLYCERIN (NITROSTAT) 0.[address] 0.4 mg under the tongue every 5 (five) minutes as needed for Chest pain. Unknown at Unknown time Scheduled Medications aspirin 81 mg Oral Daily atorvastatin 40 mg Oral Nightly fish oil omega-3 fatty acids 1 g Oral Daily isosorbide mononitrate 30 mg Oral Daily metoprolol 25 mg Oral QPM misoprostol 200 mcg Oral BID mometasone 220 mcg Inhalation Daily multivitamin with minerals 1 tablet Oral Daily topiramate 50 mg Oral Daily Continuous Infusions heparin 50 units/mL 12 Units/kg/hr (12/29/151904) PRN Medications acetaminophen OR acetaminophen, heparin (porcine) 5000 unit/0.5mL, heparin (porcine) 50 00 unit/0.5mL, nitroGLYCERIN, ondansetron OR ondansetron, polyethylene glycol, zolpidem Family History Problem Relation Age of Onset Lung cancer Father Breast cancer Mother Breast cancer Maternal Grandmother Breast cancer Maternal Aunt Leukemia Maternal Grandfather Uterine cancer Daughter History Smoking status Former Smoker -- 4.00 packs/day for 35 years Types: Cigarettes Start date: 04/07/1954 Quit date: 04/07/1989 Smokeless tobacco Never Used History Alcohol Use No Comment: former h/o alcohol abuse, quit 1973 History Drug Use No Comment: former cocaine, heroin abuse, quit 1973 Environmental/Chemical Exposure: None known PHYSICAL EXAM Vital Signs: BP 111/59 mmHg | Pulse 71 | Temp(Src) 97.8 F (36.6 C) (Oral) | Resp 18 | Ht 1.626 m (5' 4") | Wt 68.4 kg (150 lb 12.7 oz) | BMI 25.87 kg/m2 | SpO2 92% | ? No Temp: [97.8 F (36.6 C)-98.4 F (36.9 C)] 97.8 F (36.6 C) (12/28 1926) BP: (111-138)/(59-72) 111/59 mmHg (12/28 1926) Heart Rate: [69-77] 71 (12/28 1926) Resp: [18-20] 18 (12/28 1926) SpO2: [92 %-95 %] 92 % (12/28 1926) Height: [162.6 cm (5' 4")] 162.6 cm (5' 4") (12/28 1749) Weight: [68.4 kg (150 lb 12.7 oz)] 68.4 kg (150 lb 12.7 oz) (12/28 1749) BMI (Calculated): [25.9] 25.9 (12/28 1749) GENERAL: Well developed, well nourished elderly woman, in no distress. Appears approximately stated age. HEENT: Normocephalic, atraumatic. EYES: Well-healed bilateral iridectomies. PERRL, sclerae anicteric, no xanthelsasmas MOUTH: Oral mucosae moist, dentition adequate, no lesions noted NECK: No JVD, lymphadenopathy, thyromegaly, bruits. Carotid pulses are 2+ bilaterally LUNGS: Mildly, diffusely decreased breath sounds, but otherwise clear bilaterally, with no rales, rhonchi or wheezing noted, respirations unlabored HEART: Qualiall reveal implantable loop recorder is palpable in the anterior chest. Nondi splaced PMI, regular rate and rhythm, S1, S2 normal. No murmurs, rubs or gallops noted. ABDOMEN: Soft, nontender, no organomegaly, masses or bruits. Bowel sounds are normal in a ll 4 quadrants. The abdominal aortic pulsation is not palpable. EXTREMITIES: No edema. Radial pulses 2+ bilaterally with a normal right Caden test. Femor al pulses are 2+ bilaterally without bruits. DP and PT pulses are 2+ bilaterally. SKIN: Warm and dry, capillary refill is normal, no lesions. NEUROLOGIC: Awake, alert and oriented x 3. No focal motor deficits. PSYCHIATRIC: Appropriate, affect appears normal DATA CBC: Lab Results Component Value Date WBC 11.50* 12/29/2015 RBC 4.64 12/29/2015 HGB 13.7 12/29/2015 HCT 42.2 12/29/2015 MCV 91.0 12/29/2015 MCH 29.6 12/29/2015 MCHC 32.5 12/29/2015 RDW 47.3 12/29/2015 PLT 221 12/29/2015 MPV 10.3 12/29/2015 DIFFTYPE AUTOMATED 02/24/2014 BMP: Current assay pending Lab Results Component Value Date NA 139 12/23/2014 K 4.2 12/23/2014 CL 108 12/23/2014 CO2 24 12/23/2014 ANIONGAP 11.2 12/23/2014 GLUF 103* 12/23/2014 BUN 18 12/23/2014 CREATININE 0.72 12/23/2014 BCR 25.0 12/23/2014 CA 9.2 12/23/2014 EGFR 80 12/23/2014 PT/INR: Lab Results Component Value Date INR 1.0 12/29/2015 PTT: Lab Results Component Value Date APTT 25 12/29/2015 [APTT} Troponin: Lab Results Component Value Date TROPONINI <0.020 12/29/2015 CPK: Lab Results Component Value Date CKTOTAL 36 12/25/2013 CKMB: Lab Results Component Value Date CKMB 1.7 12/29/2015 EKG: Normal sinus rhythm, 64, mild, nonspecific T-wave flattening in V6 and lead II, minima l T-wave inversions in leads 3, aVF consistent with ischemia PROBLEM LIST Active Problems: COPD (chronic obstructive pulmonary disease) ([facility]) Coronary artery disease involving [place] coronary artery of [place] heart with unstable an wisam pectoris ([facility]) ASSESSMENT & PLAN 1. Unstable angina pectoris, with a recent significant increase in symptoms, now occurring at rest as well as with minimal exertion, Carbon class 3-4. Her EKG shows minor T-wave inv ersions in the inferior leads, but she had a recent nuclear stress test showing mid and dist al anterior and apical ischemia. She is on aspirin, heparin, metoprolol, Imdur, and Lipitor. She will undergo diagnostic cardiac catheterization tomorrow morning, and if indicated by the results, we will proceed with percutaneous coronary intervention. Diagnostic Cardiac Ca theterization via femoral or radial artery approach: the procedure, with its associated alt ernatives, benefits, and risks, the latter including but not limited to possible need for mo re than one vascular access site, , IL, CVA, bleeding (including the need for blood tra nsfusion), vascular damage (including the need for emergent surgical repair, including PCI/s tent placement or CABG), renal failure (including the possible need for short or long-term u se of hemodialysis), allergic reactions/anaphylaxis, and the risks of moderate anesthesia/se dation, were discussed in detail. No guarantees were given. All questions were answered. The patient verbalized understanding and gave informed consent for the procedure. 2. History of coronary artery disease, NSTEMI, with 4 drug-eluting stents, 2 each in the LA D and RCA. 3. COPD, with a prior history of excessive tobacco abuse 4. Obstructive sleep apnea, on nocturnal oxygen, but not CPAP Code Status: Full Code Primary Care Physician: KRYSTYNA LUCIANO Thank you for allowing me to participate in the care of this patient. Hayder Mane MD 12/29/2015 9:19 PM documented in this e ncounter Miscellaneous Notes Op Note - Hayder Mane MD - 12/30/2015 10:21 AM PDTFormatting of this note might be dif ferent from the original. Brief Op Note by Hayder Mane MD at 12/30/15 1021 Author: Hayder Mane MD Service: Cardiology Author Type: Physician Filed: 12/30/15 1034 Date of Service: 12/30/15 1021 Status: Signed Material Movers: Hayder Mane MD (Physician) [facility] Service: Cardiology Brief Op Note Pre-operative Diagnosis: Chest pain, abnormal nuclear stress test. H/o CAD, 4 stents Post-operative Diagnosis: Non-cardiac chest pain. No angiographically significant CAD, p atent stents in LAD and RCA, false + nuclear stress test Procedure(s): LHC, selective bilateral cor angio, LV angio Surgeon: Hayder Mane MD Selling Specialist(s): Suraj Anesthesia: Local anesthesia Estimated Blood Loss: < 20 mL Other: Not applicable Indications: See pre-operative history and physical. Findings: No angiographically significant CAD Complications: Oxygen desaturation with 1mg Versed, 50mcg Fentanyl, reversed with Romazico n 0.2mg Condition: Stable See dictated operative report for full details. # [id number] Hayder Mane MD 12/30/2015 documented in this e ncounter Plan of Treatment Not on filedocumented as of this encounter Procedures + +--------+ + + + | Procedure Name | Priori | Date/Time | Associated Diagnosis | Comments | | | ty | | | | + +--------+ + + + | EXTERNAL LAB: [facility] | Routin | 01/01/2016 | | Results for this | | | e | 4:38 AM | | procedure are in the | | | | PDT | | results section. | + +--------+ + + + | BASIC METABOLIC | Routin | 01/01/2016 | | Results for this | | PANEL | e | 4:38 AM | | procedure are in the | | | | PDT | | results section. | + +--------+ + + + | EXTERNAL LAB: [facility] | Routin | 12/31/2015 | | Results for this | | | e | 4:39 AM | | procedure are in the | | | | PDT | | results section. | + +--------+ + + + | COMPREHENSIVE | Routin | 12/31/2015 | | Results for this | | METABOLIC PANEL | e | 4:39 AM | | procedure are in the | | | | PDT | | results section. | + +--------+ + + + | CV CARDIAC PROCEDURE | Routin | 12/30/2015 | | Results for this | | | e | 10:01 AM | | procedure are in the | | | | PDT | | results section. | + +--------+ + + + | PTT | Routin | 12/30/2015 | | Results for this | | | e | 7:14 AM | | procedure are in the | | | | PDT | | results section. | + +--------+ + + + | PHOSPHORUS | Routin | 12/30/2015 | | Results for this | | | e | 7:14 AM | | procedure are in the | | | | PDT | | results section. | + +--------+ + + + | MAGNESIUM | Routin | 12/30/2015 | | Results for this | | | e | 7:14 AM | | procedure are in the | | | | PDT | | results section. | + +--------+ + + + | BASIC METABOLIC | Routin | 12/30/2015 | | Results for this | | PANEL | e | 7:14 AM | | procedure are in the | | | | PDT | | results section. | + +--------+ + + + | TROPONIN I | Routin | 12/30/2015 | | Results for this | | | e | 12:09 AM | | procedure are in the | | | | PDT | | results section. | + +--------+ + + + | CK-MB | Routin | 12/30/2015 | | Results for this | | | e | 12:09 AM | | procedure are in the | | | | PDT | | results section. | + +--------+ + + + | PTT | Routin | 12/30/2015 | | Results for this | | | e | 12:09 AM | | procedure are in the | | | | PDT | | results section. | + +--------+ + + + | TROPONIN I | Routin | 12/29/2015 | | Results for this | | | e | 5:57 PM | | procedure are in the | | | | PDT | | results section. | + +--------+ + + + | CK-MB | Routin | 12/29/2015 | | Results for this | | | e | 5:57 PM | | procedure are in the | | | | PDT | | results section. | + +--------+ + + + | PTT | Routin | 12/29/2015 | | Results for this | | | e | 5:56 PM | | procedure are in the | | | | PDT | | results section. | + +--------+ + + + | PROTIME INR | Routin | 12/29/2015 | | Results for this | | | e | 5:56 PM | | procedure are in the | | | | PDT | | results section. | + +--------+ + + + | CBC NO DIFFERENTIAL | Routin | 12/29/2015 | | Results for this | | | e | 5:56 PM | | procedure are in the | | | | PDT | | results section. | + +--------+ + + + documented in this encounter Results External Lab: [facility] (01/01/2016 4:38 AM PDT) + + + + + + | Component | Value | Ref Range | Performed | Pathologist | | | | | At | Signature | + + + + + + | WBC | 8.28Comment: Testing | 3.80 - 11.00 | EXTERNAL | | | | performed at [facility], [address] | K/uL | LAB | | | | [address], | | | | | | [place] [address] | | | | + + + + + + | Non- | 4.03Comment: Testing | 3.70 - 5.10 | EXTERNAL | | | Red Blood | performed at [facility], [address] | M/uL | LAB | | | Cells | [address], | | | | | Counted | [place] [address] | | | | + + + + + + | Hemoglobin | 12.0Comment: Testing | 11.3 - 15.5 | EXTERNAL | | | | performed at [facility], [address] | g/dL | LAB | | | | [address], | | | | | | [place] [address] | | | | + + + + + + | Hematocrit, | 36.9Comment: Testing | 34.0 - 46.0 % | EXTERNAL | | | POC | performed at [facility], [address] | | LAB | | | | [address], | | | | | | [place] [address] | | | | + + + + + + | MCV | 91.6Comment: Testing | 80.0 - 100.0 fl | EXTERNAL | | | | performed at [facility], [address] | | LAB | | | | [address], | | | | | | [place] [address] | | | | + + + + + + | MCH | 29.8Comment: Testing | 27.0 - 34.0 pg | EXTERNAL | | | | performed at [facility], [address] | | LAB | | | | [address], | | | | | | [place] [address] | | | | + + + + + + | MCHC | 32.5Comment: Testing | 32.0 - 35.5 | EXTERNAL | | | | performed at [facility], [address] | g/dL | LAB | | | | [address], | | | | | | [place] [address] | | | | + + + + + + | RDW-CV | 47.3Comment: Testing | 37 - 53 fl | EXTERNAL | | | | performed at [facility], [address] | | LAB | | | | [address], | | | | | | [place] [address] | | | | + + + + + + | Platelet | 196Comment: Testing | 150 - 400 K/uL | EXTERNAL | | | Count | performed at [facility], [address] | | LAB | | | Plasma | [address], | | | | | | [place] [address] | | | | + + + + + + | MPV | 9.8Comment: Testing | fl | EXTERNAL | | | | performed at [facility], [address] | | LAB | | | | [address], | | | | | | [place] [address] | | | | + + + + + + | Differentia | AUTOMATEDComment: | | EXTERNAL | | | l Type | Testing performed at | | LAB | | | | [facility], [address] | | | | | | [place] | | | | | | [address] | | | | + + + + + + | % Segmented | 39.59Comment: Testing | % | EXTERNAL | | | | performed at [facility], [address] | | LAB | | | Neutrophils | [address], | | | | | | [place] [address] | | | | + + + + + + | % | 47.05Comment: Testing | % | EXTERNAL | | | Lymphocytes | performed at [facility], [address] | | LAB | | | | [address], | | | | | | [place] [address] | | | | + + + + + + | % Monocytes | 11.12Comment: Testing | % | EXTERNAL | | | | performed at [facility], [address] | | LAB | | | | [address], | | | | | | [place] [address] | | | | + + + + + + | % | 1.76Comment: Testing | % | EXTERNAL | | | Eosinophils | performed at [facility], [address] | | LAB | | | | [address], | | | | | | [place] [address] | | | | + + + + + + | % Basophils | 0.48Comment: Testing | % | EXTERNAL | | | | performed at [facility], [address] | | LAB | | | | [address], | | | | | | [place] [address] | | | | + + + + + + | Absolute | 3.28Comment: Testing | 1.90 - 7.40 | EXTERNAL | | | Segmented | performed at [facility], [address] | K/uL | LAB | | | Neutrophils | [address], | | | | | | [place] [address] | | | | + + + + + + | Absolute | 3.89Comment: Testing | 1.00 - 3.90 | EXTERNAL | | | Lymphocytes | performed at [facility], [address] | K/uL | LAB | | | | [address], | | | | | | [place] [address] | | | | + + + + + + | Absolute | 0.92 (H)Comment: Testing | 0.00 - 0.80 | EXTERNAL | | | Monocytes | performed at [facility], [address] | K/uL | LAB | | | | [address], | | | | | | [place], [place] [address] | | | | + + + + + + | Absolute | 0.15Comment: Testing | 0.00 - 0.50 | EXTERNAL | | | Eosinophils | performed at [facility], [address] | K/uL | LAB | | | | [address], | | | | | | [place] [address] | | | | + + + + + + | Absolute | 0.04Comment: Testing | 0.00 - 0.10 | EXTERNAL | | | Basophils | performed at [facility], [address] | K/uL | LAB | | | | [address], | | | | | | [place] [address] | | | | + + + [...] + +---------+ + + Basic Metabolic Panel (01/01/2016 4:38 AM PDT) + + + + + + | Component | Value | Ref Range | Performed | Pathologist | | | | | At | Signature | + + + + + + | Na | 146 (H)Comment: Testing | 135 - 145 | EXTERNAL | | | | performed at [facility], [address] | mmol/L | LAB | | | | [address], | | | | | | [place] [address] | | | | + + + + + + | K | 3.7Comment: Testing | 3.5 - 4.9 | EXTERNAL | | | | performed at [facility], [address] | mmol/L | LAB | | | | [address], | | | | | | [place] [address] | | | | + + + + + + | Cl | 112 (H)Comment: Testing | 99 - 109 mmol/L | EXTERNAL | | | | performed at [facility], [address] | | LAB | | | | [address], | | | | | | [place] [address] | | | | + + + + + + | CO2 | 27Comment: Testing | 23 - 32 mmol/L | EXTERNAL | | | | performed at [facility], [address] | | LAB | | | | [address], | | | | | | [place] [address] | | | | + + + + + + | Anion Gap | 11Comment: Testing | 5 - 20 mmol/L | EXTERNAL | | | | performed at [facility], [address] | | LAB | | | | [address], | | | | | | [place] [address] | | | | + + + + + + | Glucose, | 97Comment: Testing | 65 - 99 mg/dL | EXTERNAL | | | Fasting | performed at [facility], [address] | | LAB | | | | [address], | | | | | | [place] [address] | | | | + + + + + + | BUN | 13Comment: Testing | 8 - 25 mg/dL | EXTERNAL | | | | performed at [facility], [address] | | LAB | | | | [address], | | | | | | [place] [address] | | | | + + + + + + | Creatinine | 0.7Comment: Testing | 0.50 - 1.00 | EXTERNAL | | | | performed at [facility], [address] | mg/dL | LAB | | | | [address], | | | | | | [place] [address] | | | | + + + + + + | BUN/Creatin | 19Comment: Testing | | EXTERNAL | | | ine Ratio | performed at [facility], [address] | | LAB | | | | [address], | | | | | | [place] [address] | | | | + + + + + + | Calcium | 8.8Comment: Testing | 8.5 - 10.5 | EXTERNAL | | | | performed at [facility], [address] | mg/dL | LAB | | | | [address], | | | | | | [place] [address] | | | | + + + + + + | Estimated | >60Comment: GFR <60: | mL/min/1.73m2 | EXTERNAL | | | GFR | CHRONIC KIDNEY DISEASE, | | LAB | | | | IF FOUND OVER A 3 MONTH | | | | | | PERIOD.GFR <15: KIDNEY | | | | | | FAILURE.FOR | | | | | | AMERICANS, MULTIPLY THE | | | | | | CALCULATED GFR BY | | | | | | 1.210.Testing performed | | | | | | at [facility], [address] | | | | | | [address], | | | | | | [place] [address] | | | | + + + + + + + + | Specimen | + + | Blood specimen | | (specimen) | + + + +---------+ + + | Performing | Address | City/State/Zipcode | Phone Number | | Organization | | | | + +---------+ + + | EXTERNAL LAB | | | | + +---------+ + + External Lab: CBC (12/31/2015 4:39 AM PDT) + + + + + + | Component | Value | Ref Range | Performed | Pathologist | | | | | At | Signature | + + + + + + | WBC | 9.79Comment: Testing | 3.80 - 11.00 | EXTERNAL | | | | performed at [facility], [address] | K/uL | LAB | | | | [address], | | | | | | [place] [address] | | | | + + + + + + | Non- | 4.21Comment: Testing | 3.70 - 5.10 | EXTERNAL | | | Red Blood | performed at [facility], [address] | M/uL | LAB | | | Cells | [address], | | | | | Counted | [place] [address] | | | | + + + + + + | Hemoglobin | 12.4Comment: Testing | 11.3 - 15.5 | EXTERNAL | | | | performed at [facility], [address] | g/dL | LAB | | | | [address], | | | | | | [place] [address] | | | | + + + + + + | Hematocrit, | 38.5Comment: Testing | 34.0 - 46.0 % | EXTERNAL | | | POC | performed at [facility], [address] | | LAB | | | | [address], | | | | | | [place] [address] | | | | + + + + + + | MCV | 91.5Comment: Testing | 80.0 - 100.0 fl | EXTERNAL | | | | performed at [facility], [address] | | LAB | | | | [address], | | | | | | [place] [address] | | | | + + + + + + | MCH | 29.5Comment: Testing | 27.0 - 34.0 pg | EXTERNAL | | | | performed at [facility], [address] | | LAB | | | | [address], | | | | | | [place] [address] | | | | + + + + + + | MCHC | 32.3Comment: Testing | 32.0 - 35.5 | EXTERNAL | | | | performed at [facility], [address] | g/dL | LAB | | | | [address], | | | | | | [place] [address] | | | | + + + + + + | RDW-CV | 47.3Comment: Testing | 37 - 53 fl | EXTERNAL | | | | performed at [facility], [address] | | LAB | | | | [address], | | | | | | [place] [address] | | | | + + + + + + | Platelet | 195Comment: Testing | 150 - 400 K/uL | EXTERNAL | | | Count | performed at [facility], [address] | | LAB | | | Plasma | [address], | | | | | | [place] [address] | | | | + + + + + + | MPV | 10.6Comment: Testing | fl | EXTERNAL | | | | performed at [facility], [address] | | LAB | | | | [address], | | | | | | [place] [address] | | | | + + + + + + | Differentia | AUTOMATEDComment: | | EXTERNAL | | | l Type | Testing performed at | | LAB | | | | [facility], [address] | | | | | | [place] | | | | | | [address] | | | | + + + + + + | % Segmented | 49.57Comment: Testing | % | EXTERNAL | | | | performed at [facility], [address] | | LAB | | | Neutrophils | [address], | | | | | | [place] [address] | | | | + + + + + + | % | 39.44Comment: Testing | % | EXTERNAL | | | Lymphocytes | performed at [facility], [address] | | LAB | | | | [address], | | | | | | [place] [address] | | | | + + + + + + | % Monocytes | 9.35Comment: Testing | % | EXTERNAL | | | | performed at [facility], [address] | | LAB | | | | [address], | | | | | | [place] [address] | | | | + + + + + + | % | 0.86Comment: Testing | % | EXTERNAL | | | Eosinophils | performed at [facility], [address] | | LAB | | | | [address], | | | | | | [place] [address] | | | | + + + + + + | % Basophils | 0.78Comment: Testing | % | EXTERNAL | | | | performed at [facility], [address] | | LAB | | | | [address], | | | | | | [place] [address] | | | | + + + + + + | Absolute | 4.85Comment: Testing | 1.90 - 7.40 | EXTERNAL | | | Segmented | performed at [facility], [address] | K/uL | LAB | | | Neutrophils | [address], | | | | | | [place] [address] | | | | + + + + + + | Absolute | 3.86Comment: Testing | 1.00 - 3.90 | EXTERNAL | | | Lymphocytes | performed at [facility], [address] | K/uL | LAB | | | | [address], | | | | | | [place] [address] | | | | + + + + + + | Absolute | 0.92 (H)Comment: Testing | 0.00 - 0.80 | EXTERNAL | | | Monocytes | performed at [facility], [address] | [address] | LAB | | | | [address], | | | | | | [place] [address] | | | | + + + + + + | Absolute | 0.09Comment: Testing | 0.00 - 0.50 | EXTERNAL | | | Eosinophils | performed at [facility], [address] | K/uL | LAB | | | | [address], | | | | | | [place] [address] | | | | + + + + + + | Absolute | 0.08Comment: Testing | 0.00 - 0.10 | EXTERNAL | | | Basophils | performed at [facility], [address] | K/uL | LAB | | | | [address], | | | | | | [place] [address] | | | | + + + + + + + + | Specimen | + + | Blood specimen | | (specimen) | + + + +---------+ + + | Performing | Address | City/State/Zipcode | Phone Number | | Organization | | | | + +---------+ + + | EXTERNAL LAB | | | | + +---------+ + + Comprehensive Metabolic Panel (12/31/2015 4:39 AM PDT) + + + + + + | Component | Value | Ref Range | Performed | Pathologist | | | | | At | Signature | + + + + + + | Na | 144Comment: Testing | 135 - 145 | EXTERNAL | | | | performed at [facility], [address] | mmol/L | LAB | | | | [address], | | | | | | [place] [address] | | | | + + + + + + | K | 3.8Comment: Testing | 3.5 - 4.9 | EXTERNAL | | | | performed at [facility], [address] | mmol/L | LAB | | | | [address], | | | | | | [place] [address] | | | | + + + + + + | Cl | 111 (H)Comment: Testing | 99 - 109 mmol/L | EXTERNAL | | | | performed at [facility], [address] | | LAB | | | | [address], | | | | | | [place] [address] | | | | + + + + + + | CO2 | 26Comment: Testing | 23 - 32 mmol/L | EXTERNAL | | | | performed at [facility], [address] | | LAB | | | | [address], | | | | | | [place] [address] | | | | + + + + + + | Anion Gap | 11Comment: Testing | 5 - 20 mmol/L | EXTERNAL | | | | performed at [facility], [address] | | LAB | | | | [address], | | | | | | [place] [address] | | | | + + + + + + | Glucose, | 99Comment: Testing | 65 - 99 mg/dL | EXTERNAL | | | Fasting | performed at [facility], [address] | | LAB | | | | [address], | | | | | | [place] [address] | | | | + + + + + + | BUN | 11Comment: Testing | 8 - 25 mg/dL | EXTERNAL | | | | performed at [facility], [address] | | LAB | | | | [address], | | | | | | [place] [address] | | | | + + + + + + | Creatinine | 0.5Comment: Testing | 0.50 - 1.00 | EXTERNAL | | | | performed at [facility], [address] | mg/dL | LAB | | | | [address], | | | | | | [place] [address] | | | | + + + + + + | BUN/Creatin | 22Comment: Testing | | EXTERNAL | | | ine Ratio | performed at [facility], [address] | | LAB | | | | [address], | | | | | | [place] [address] | | | | + + + + + + | Calcium | 8.7Comment: Testing | 8.5 - 10.5 | EXTERNAL | | | | performed at [facility], [address] | mg/dL | LAB | | | | [address], | | | | | | [place] [address] | | | | + + + + + + | Protein, | 6.1 (L)Comment: Testing | 6.3 - 8.2 g/dL | EXTERNAL | | | Total | performed at [facility], [address] | | LAB | | | | [address], | | | | | | [place] [address] | | | | + + + + + + | Albumin | 2.9 (L)Comment: Testing | 3.3 - 4.8 g/dL | EXTERNAL | | | | performed at [facility], [address] | | LAB | | | | [address], | | | | | | [place] [address] | | | | + + + + + + | Globulin | 3.2Comment: Testing | 1.3 - 4.9 g/dL | EXTERNAL | | | | performed at [facility], [address] | | LAB | | | | [address], | | | | | | [place] [address] | | | | + + + + + + | A/G Ratio | 0.9 (L)Comment: Testing | 1.0 - 2.4 | EXTERNAL | | | | performed at [facility], [address] | | LAB | | | | [address], | | | | | | [place] [address] | | | | + + + + + + | Bilirubin | 0.5Comment: Testing | 0.1 - 1.5 mg/dL | EXTERNAL | | | Total | performed at [facility], [address] | | LAB | | | | [address], | | | | | | [place] [address] | | | | + + + + + + | ALP, | 81Comment: Testing | 35 - 115 U/L | EXTERNAL | | | External | performed at [facility], [address] | | LAB | | | | [address], | | | | | | [place] [address] | | | | + + + + + + | AST | 47 (H)Comment: Testing | 10 - 45 U/L | EXTERNAL | | | | performed at [facility], [address] | | LAB | | | | [address], | | | | | | [place] [address] | | | | + + + + + + | ALT | 58Comment: Testing | 10 - 65 U/L | EXTERNAL | | | | performed at [facility], [address] | | LAB | | | | [address], | | | | | | [place] [address] | | | | + + + + + + | Estimated | >60Comment: GFR <60: | mL/min/1.73m2 | EXTERNAL | | | GFR | CHRONIC KIDNEY DISEASE, | | LAB | | | | IF FOUND OVER A 3 MONTH | | | | | | PERIOD.GFR <15: KIDNEY | | | | | | FAILURE.FOR | | | | | | AMERICANS, MULTIPLY THE | | | | | | CALCULATED GFR BY | | | | | | 1.210.Testing performed | | | | | | at [facility], [address] | | | | | | [facility], | | | | | | [place] [address] | | | | + + + + + + + + | Specimen | + + | Blood specimen | | (specimen) | + + + +---------+ + + | Performing | Address | City/State/Zipcode | Phone Number | | Organization | | | | + +---------+ + + | EXTERNAL LAB | | | | + +---------+ + + CV CARDIAC PROCEDURE (12/30/2015 10:01 AM PDT) + + | Specimen | + + | | + + + + + | Narrative | Performed At | + + + | | | | | | | DATE OF SERVICE December 30, 2015 REFERRING PHYSICIAN [place] | | | MD Krystyna Naik MD, [place], [place]. INDICATIONS | | | Recurrent episodes of severe chest pain/pressure, with an abnormal | | | nuclear stress test showing evidence of mid and distal anterolateral | | | and apical ischemia. She has a history of coronary artery disease, | | | with a total of 4 drug-eluting stents in the mid to distal LAD and | | | distal RCA into the posterolateral ventricular branch in 2013. | | | PROCEDURES 1. Left heart catheterization. 2. Selective bilateral | | | coronary angiography. 3. Left ventricular cineangiography via right | | | radial artery approach. DESCRIPTION OF PROCEDURE After informed | | | consent was obtained, she was brought to the cardiac catheterization | | | laboratory and prepped and draped in sterile fashion. She was given | | | Versed 1 mg IV and fentanyl 50 mcg IV for moderate | | | anesthesia/sedation. With this, her oxygen saturation decreased | | | transiently to 78%, and supplemental oxygen was given, initially via | | | nasal cannula, then via Ventimask with an increase in oxygen | | | saturation to 90%. The sedation was partially reversed with 0.2 mg of | | | Romazicon, and there were no further problems with her oxygen | | | saturation. The right radial area was infiltrated with 2 mL of 2% | | | xylocaine for local anesthesia. Using Seldinger technique, a 6-Moldovan | | | hydrophilic introducer sheath was inserted into the right radial | | | artery. The radial artery "cocktail" (heparin 2000 units) was | | | administered through the introducer sheath sideport. With the use of a | | | 265 cm, 0.035-inch, J-tipped guidewire for catheter advancement | | | under direct fluoroscopic visualization, a 5-Moldovan multipurpose | | | catheter was advanced across the aortic valve into the left | | | ventricle. Following pressure measurements, a single left ventricular | | | cineangiogram was performed in the 30-degree EASTMAN view. The catheter | | | was then pulled back across the aortic valve, with pressures | | | measured. It was then used to perform selective angiography of the | | | [place] left coronary system in multiple views in standard fashion. | | | However, as it could not cannulate the ostium of the [place] right | | | coronary artery, which has a somewhat anterior, upwards angling | | | origin, it was exchanged over a guidewire for several catheters, | | | including a 5-Moldovan FR4, 5-Moldovan Chucho, 5-Moldovan AR1, and | | | finally, a 5-Moldovan FR5 catheter engaged the ostium and was able to | | | maintain position for angiography, which was then performed in | | | multiple views in standard fashion. The catheter was then removed | | | over the guidewire. The introducer sheath was removed, and hemostasis | | | was achieved with application of a TR band. There were no | | | complications, and the patient otherwise tolerated the procedure | | | well. ESTIMATED BLOOD LOSS Less than 20 mL. CONTRAST 120 mL | | | Isovue. RESULTS HEMODYNAMICS Left ventricular systolic pressure | | | measured 110 mmHg. Left ventricular end-diastolic pressure measured | | | 23 mmHg. On pullback, central aortic pressure measured 111/60, with a | | | mean pressure of 81 mmHg. CORONARY ARTERIES 1. Left main: This | | | is a large vessel arising from the left coronary cusp. It is free of | | | disease. It trifurcates at its distal end. 2. Left anterior | | | descending: This is a large, type 2 vessel which reaches the apex. | | | The proximal segment contains an eccentric 40% to 50% stenosis just | | | before the origin of the first diagonal branch. The remainder of the | | | LAD is free of disease. There are widely patent stents overlapping in | | | the late mid and early distal segments. The septal wharf builder | | | branches appear normal. The first diagonal branch is a medium size | | | vessel, with no evidence of disease. The second diagonal branch is | | | large caliber and free of disease. 3. Ramus intermedius: This is a | | | large vessel, with no evidence of disease. 4. Left circumflex: This | | | is a medium size, nondominant vessel. It gives rise to a single first | | | obtuse marginal branch. These are free of disease. 5. Right | | | coronary artery: This is a large, dominant vessel arising from the | | | right coronary cusp, with an unusual anterior, upwards angling | | | takeoff. The early mid segment contains tandem eccentric 30% to 40% | | | stenosis. The mid segment is free of disease. The distal segment | | | contains 2 overlapping drug-eluting stents extending into the | | | proximal posterolateral ventricular branch, which are widely patent. | | | The posterior descending artery is large, and normal. The | | | posterolateral ventricular branch is normal throughout its course, | | | with the patent stents, as noted above. 6. Left ventricle: This is | | | normal in size and shape. All wall segments contract well. The | | | visually estimated ejection fraction is 60% to 65%. The mitral valve | | | is competent. A Cmed implantable loop recorder is noted | | | on fluoroscopy. CONCLUSIONS 1. No angiographically significant | | | coronary artery disease. There are nonhemodynamically significant | | | stenoses in the proximal LAD and early mid RCA. 2. Widely patent | | | overlapping drug-eluting stents in the mid-distal LAD and distal RCA | | | into the posterolateral ventricular branch. 3. Normal left | | | ventricular systolic function. 4. False-positive nuclear stress test. | | | 5. Noncardiac chest pain. RECOMMENDATIONS She can be discharged | | | home today, and have an outpatient evaluation for noncardiac chest | | | pain. A GI evaluation is suggested. Read by HAYDER MANE MD | | | 12/30/2015 10:26 A Electronically signed by Hayder Mane MD on | | | 12/31/2015 3:28 PM | | + + + + + | Procedure Note | + + | Lorenzo Allan Conversion - 11/25/2018 3:00 PM PDT | | | | | | DATE OF SERVICE | | December 30, 2015 | | | | REFERRING PHYSICIAN | | Martell Luna MD | | Krystyna Luciano MD, [place], [place]. | | | | INDICATIONS | | Recurrent episodes of severe chest pain/pressure, with an abnormal nuclear | | stress test showing evidence of mid and distal anterolateral and apical | | ischemia. She has a history of coronary artery disease, with a total of 4 | | drug-eluting stents in the mid to distal LAD and distal RCA into the | | posterolateral ventricular branch in 2013. | | | | PROCEDURES | | 1. Left heart catheterization. | | 2. Selective bilateral coronary angiography. | | 3. Left ventricular cineangiography via right radial artery approach. | | | | DESCRIPTION OF PROCEDURE | | After informed consent was obtained, she was brought to the cardiac | | catheterization laboratory and prepped and draped in sterile fashion. She | | was given Versed 1 mg IV and fentanyl 50 mcg IV for moderate | | anesthesia/sedation. With this, her oxygen saturation decreased transiently | | to 78%, and supplemental oxygen was given, initially via nasal cannula, | | then via Ventimask with an increase in oxygen saturation to 90%. The | | sedation was partially reversed with 0.2 mg of Romazicon, and there were no | | further problems with her oxygen saturation. The right radial area was | | infiltrated with 2 mL of 2% xylocaine for local anesthesia. Using Seldinger | | technique, a 6-Moldovan hydrophilic introducer sheath was inserted into the | | right radial artery. The radial artery "cocktail" (heparin 2000 units) was | | administered through the introducer sheath sideport. With the use of a 265 | | cm, 0.035-inch, J-tipped guidewire for catheter advancement under direct | | fluoroscopic visualization, a 5-Moldovan multipurpose catheter was advanced | | across the aortic valve into the left ventricle. Following pressure | | measurements, a single left ventricular cineangiogram was performed in the | | 30-degree EASTMAN view. The catheter was then pulled back across the aortic | | valve, with pressures measured. It was then used to perform selective | | angiography of the [place] left coronary system in multiple views in | | standard fashion. However, as it could not cannulate the ostium of the | | [place] right coronary artery, which has a somewhat anterior, upwards | | angling origin, it was exchanged over a guidewire for several catheters, | | including a 5-Moldovan FR4, 5-Moldovan Chucho, 5-Moldovan AR1, and finally, a | | 5-Moldovan FR5 catheter engaged the ostium and was able to maintain position | | for angiography, which was then performed in multiple views in standard | | fashion. The catheter was then removed over the guidewire. The introducer | | sheath was removed, and hemostasis was achieved with application of a TR | | band. There were no complications, and the patient otherwise tolerated the | | procedure well. | | | | ESTIMATED BLOOD LOSS | | Less than 20 mL. | | | | CONTRAST | | 120 mL Isovue. | | | | RESULTS | | HEMODYNAMICS | | Left ventricular systolic pressure measured 110 mmHg. Left ventricular | | end-diastolic pressure measured 23 mmHg. On pullback, central aortic | | pressure measured 111/60, with a mean pressure of 81 mmHg. | | | | CORONARY ARTERIES | | 1. Left main: This is a large vessel arising from the left coronary cusp. | | It is free of disease. It trifurcates at its distal end. | | 2. Left anterior descending: This is a large, type 2 vessel which reaches | | the apex. The proximal segment contains an eccentric 40% to 50% stenosis | | just before the origin of the first diagonal branch. The remainder of | | the LAD is free of disease. There are widely patent stents overlapping | | in the late mid and early distal segments. The septal wharf builder | | branches appear normal. The first diagonal branch is a medium size | | vessel, with no evidence of disease. The second diagonal branch is large | | caliber and free of disease. | | 3. Ramus intermedius: This is a large vessel, with no evidence of disease. | | 4. Left circumflex: This is a medium size, nondominant vessel. It gives | | rise to a single first obtuse marginal branch. These are free of | | disease. | | 5. Right coronary artery: This is a large, dominant vessel arising from the | | right coronary cusp, with an unusual anterior, upwards angling takeoff. | | The early mid segment contains tandem eccentric 30% to 40% stenosis. The | | mid segment is free of disease. The distal segment contains 2 | | overlapping drug-eluting stents extending into the proximal | | posterolateral ventricular branch, which are widely patent. The | | posterior descending artery is large, and normal. The posterolateral | | ventricular branch is normal throughout its course, with the patent | | stents, as noted above. | | 6. Left ventricle: This is normal in size and shape. All wall segments | | contract well. The visually estimated ejection fraction is 60% to 65%. | | The mitral valve is competent. A Cmed implantable loop | | recorder is noted on fluoroscopy. | | | | CONCLUSIONS | | 1. No angiographically significant coronary artery disease. There are | | nonhemodynamically significant stenoses in the proximal LAD and early | | mid RCA. | | 2. Widely patent overlapping drug-eluting stents in the mid-distal LAD and | | distal RCA into the posterolateral ventricular branch. | | 3. Normal left ventricular systolic function. | | 4. False-positive nuclear stress test. | | 5. Noncardiac chest pain. | | | | RECOMMENDATIONS | | She can be discharged home today, and have an outpatient evaluation for | | noncardiac chest pain. A GI evaluation is suggested. | | | | Read by HAYDER MANE MD 12/30/2015 10:26 A | | | | | + + PTT (12/30/2015 7:14 AM PDT) + + + + + + | Component | Value | Ref Range | Performed | Pathologist | | | | | At | Signature | + + + + + + | aPTT, | 80 (H)Comment: CALLED | 23 - 32 seconds | EXTERNAL | | | Patient | NURSING SHAGGY/CassandraP @ | | LAB | | | | 1107 BY [employer] BACK | | | | | | RESULTS VERIFIEDTesting | | | | | | performed at [facility] | | | | | | [address];[place], [place] | | | | | | [address] | | | | + + + + + + + + | Specimen | + + | Blood specimen | | (specimen) | + + + +---------+ + + | Performing | Address | City/State/Zipcode | Phone Number | | Organization | | | | + +---------+ + + | EXTERNAL LAB | | | | + +---------+ + + Phosphorus (12/30/2015 7:14 AM PDT) + + + + + + | Component | Value | Ref Range | Performed | Pathologist | | | | | At | Signature | + + + + + + | PHOSPHORUS | 3.2Comment: Testing | 2.3 - 4.8 mg/dL | EXTERNAL | | | | performed at [facility], [address] | | LAB | | | | [address], | | | | | | [place] [address] | | | | + + + + + + + + | Specimen | + + | Blood specimen | | (specimen) | + + + +---------+ + + | Performing | Address | City/State/Zipcode | Phone Number | | Organization | | | | + +---------+ + + | EXTERNAL LAB | | | | + +---------+ + + Magnesium (12/30/2015 7:14 AM PDT) + + + + + + | Component | Value | Ref Range | Performed | Pathologist | | | | | At | Signature | + + + + + + | Magnesium | 2.0Comment: Testing | 1.7 - 2.4 mg/dL | EXTERNAL | | | | performed at [facility], [address] | | LAB | | | | [address], | | | | | | [place] [address] | | | | + + + [...] + +---------+ + + Basic Metabolic Panel (12/30/2015 7:14 AM PDT) + + + + + + | Component | Value | Ref Range | Performed | Pathologist | | | | | At | Signature | + + + + + + | Na | 144Comment: Testing | 135 - 145 | EXTERNAL | | | | performed at [facility], [address] | mmol/L | LAB | | | | [address], | | | | | | [place] [address] | | | | + + + + + + | K | 3.7Comment: Testing | 3.5 - 4.9 | EXTERNAL | | | | performed at [facility], [address] | mmol/L | LAB | | | | [address], | | | | | | [place] [address] | | | | + + + + + + | Cl | 112 (H)Comment: Testing | 99 - 109 mmol/L | EXTERNAL | | | | performed at [facility], [address] | | LAB | | | | [address], | | | | | | [place] [address] | | | | + + + + + + | CO2 | 24Comment: Testing | 23 - 32 mmol/L | EXTERNAL | | | | performed at [facility], [address] | | LAB | | | | [address], | | | | | | [place] [address] | | | | + + + + + + | Anion Gap | 12Comment: Testing | 5 - 20 mmol/L | EXTERNAL | | | | performed at [facility], [address] | | LAB | | | | [address], | | | | | | [place] [address] | | | | + + + + + + | Glucose, | 100 (H)Comment: Testing | 65 - 99 mg/dL | EXTERNAL | | | Fasting | performed at [facility], [address] | | LAB | | | | [address], | | | | | | [place] [address] | | | | + + + + + + | BUN | 17Comment: Testing | 8 - 25 mg/dL | EXTERNAL | | | | performed at [facility], [address] | | LAB | | | | [address], | | | | | | [place] [address] | | | | + + + + + + | Creatinine | 0.5Comment: Testing | 0.50 - 1.00 | EXTERNAL | | | | performed at [facility], [address] | mg/dL | LAB | | | | [address], | | | | | | [place] [address] | | | | + + + + + + | BUN/Creatin | 34Comment: Testing | | EXTERNAL | | | ine Ratio | performed at [facility], [address] | | LAB | | | | [address], | | | | | | [place] [address] | | | | + + + + + + | Calcium | 8.6Comment: Testing | 8.5 - 10.5 | EXTERNAL | | | | performed at [facility], [address] | mg/dL | LAB | | | | [address], | | | | | | [place] [address] | | | | + + + + + + | Estimated | >60Comment: GFR <60: | mL/min/1.73m2 | EXTERNAL | | | GFR | CHRONIC KIDNEY DISEASE, | | LAB | | | | IF FOUND OVER A 3 MONTH | | | | | | PERIOD.GFR <15: KIDNEY | | | | | | FAILURE.FOR | | | | | | AMERICANS, MULTIPLY THE | | | | | | CALCULATED GFR BY | | | | | | 1.210.Testing performed | | | | | | at [facility], [address] | | | | | | [address], | | | | | | [place] [address] | | | | + + + + + + + + | Specimen | + + | Blood specimen | | (specimen) | + + + +---------+ + + | Performing | Address | City/State/Zipcode | Phone Number | | Organization | | | | + +---------+ + + | EXTERNAL LAB | | | | + +---------+ + + CK-MB (12/30/2015 12:09 AM PDT) + + + + + + | Component | Value | Ref Range | Performed | Pathologist | | | | | At | Signature | + + + + + + | CK-MB | 1.3Comment: Testing | 0.5 - 3.6 ng/mL | EXTERNAL | | | | performed at [facility] [place];[address] | | LAB | | | | [address];[place], [place] | | | | | | [address] | | | | + + + + + + | CK-MB Index | UNABLE TO | | EXTERNAL | | | | CALCULATEComment: | | LAB | | | | Testing performed at | | | | | | [facility] [place] [facility];[address] | | | | | | [address];[place] [address] | | | | + + + + + + + + | Specimen | + + | | + + + +---------+ + + | Performing | Address | City/State/Zipcode | Phone Number | | Organization | | | | + +---------+ + + | EXTERNAL LAB | | | | + +---------+ + + Troponin I (12/30/2015 12:09 AM PDT) + + + + + + | Component | Value | Ref Range | Performed | Pathologist | | | | | At | Signature | + + + + + + | Troponin I, | <0.020Comment: 0.00 to | 0.00 - 0.10 | EXTERNAL | | | Qual | 0.10 CONSISTENT WITH | ng/mL | LAB | | | | NORMAL POPULATION0.11 | | | | | | to 0.60 CONSISTENT | | | | | | WITH INCREASED RISK FOR | | | | | | ADVERSE OUTCOMES> 0.60 | | | | | | CONSISTENT | | | | | | WITH WHO CRITERIA FOR | | | | | | ACUTE [place] Testing | | | | | | performed at [facility] [place];[facility] | | | | | | [facility];[place], [place] | | | | | | [address] | | | | + + + + + + + + | Specimen | + + | Blood specimen | | (specimen) | + + + +---------+ + + | Performing | Address | City/State/Zipcode | Phone Number | | Organization | | | | + +---------+ + + | EXTERNAL LAB | | | | + +---------+ + + PTT (12/30/2015 12:09 AM PDT) + + + + + + | Component | Value | Ref Range | Performed | Pathologist | | | | | At | Signature | + + + + + + | aPTT, | 110 ()Comment: CALLED | 23 - 32 seconds | EXTERNAL | | | Patient | TO HENRY Ryan RN/4RP AT 0146 | | LAB | | | | BY MWREAD BACK RESULTS | | | | | | VERIFIEDTesting | | | | | | performed at [facility];[address] | | | | | | [address];[place] | | | | | | [address] | | | | + + + + + + + + | Specimen | + + | Blood specimen | | (specimen) | + + + +---------+ + + | Performing | Address | City/State/Zipcode | Phone Number | | Organization | | | | + +---------+ + + | EXTERNAL LAB | | | | + +---------+ + + CK-MB (12/29/2015 5:57 PM PDT) + + + + + + | Component | Value | Ref Range | Performed | Pathologist | | | | | At | Signature | + + + + + + | CK-MB | 1.7Comment: Testing | 0.5 - 3.6 ng/mL | EXTERNAL | | | | performed at [facility];[address] | | LAB | | | | [address];[place] | | | | | | [address] | | | | + + + + + + | CK-MB Index | UNABLE TO | | EXTERNAL | | | | CALCULATEComment: | | LAB | | | | Testing performed at | | | | | | [facility] [place] [facility];[address];[place] [address] | | | | + + + + + + + + | Specimen | + + | | + + + +---------+ + + | Performing | Address | City/State/Zipcode | Phone Number | | Organization | | | | + +---------+ + + | EXTERNAL LAB | | | | + +---------+ + + Troponin I (12/29/2015 5:57 PM PDT) + + + + + + | Component | Value | Ref Range | Performed | Pathologist | | | | | At | Signature | + + + + + + | Troponin I, | <0.020Comment: 0.00 to | 0.00 - 0.10 | EXTERNAL | | | Qual | 0.10 CONSISTENT WITH | ng/mL | LAB | | | | NORMAL POPULATION0.11 | | | | | | to 0.60 CONSISTENT | | | | | | WITH INCREASED RISK FOR | | | | | | ADVERSE OUTCOMES> 0.60 | | | | | | CONSISTENT | | | | | | WITH WHO CRITERIA FOR | | | | | | ACUTE [place] Testing | | | | | | performed at [facility] [place] [facility];[address] | | | | | | [address];[place] | | | | | | [address] | | | | + + + + + + + + | Specimen | + + | Blood specimen | | (specimen) | + + + +---------+ + + | Performing | Address | City/State/Zipcode | Phone Number | | Organization | | | | + +---------+ + + | EXTERNAL LAB | | | | + +---------+ + + CBC no Differential (12/29/2015 5:56 PM PDT) + + + + + + | Component | Value | Ref Range | Performed | Pathologist | | | | | At | Signature | + + + + + + | WBC | 11.50 (H)Comment: | 3.80 - 11.00 | EXTERNAL | | | | Testing performed at | K/uL | LAB | | | | [facility];[address] | | [address];[place] [address] | | | | + + + + + + | Non- | 4.64Comment: Testing | 3.70 - 5.10 | EXTERNAL | | | Red Blood | performed at [facility];[address] | M/uL | LAB | | | Cells | [address];[place] | | | | | Counted | [address] | | | | + + + + + + | Hemoglobin | 13.7Comment: Testing | 11.3 - 15.5 | EXTERNAL | | | | performed at [facility] [place];[address] | g/dL | LAB | | | | [address];[place] | | | | | | [address] | | | | + + + + + + | Hematocrit, | 42.2Comment: Testing | 34.0 - 46.0 % | EXTERNAL | | | POC | performed at [facility];[address] | | LAB | | | | [address];[place] | | | | | | [address] | | | | + + + + + + | MCV | 91.0Comment: Testing | 80.0 - 100.0 fl | EXTERNAL | | | | performed at [facility];[address] | | LAB | | | | [address];[place] | | | | | | [address] | | | | + + + + + + | MCH | 29.6Comment: Testing | 27.0 - 34.0 pg | EXTERNAL | | | | performed at [facility];[address] | | LAB | | | | [address];[place] | | | | | | [address] | | | | + + + + + + | MCHC | 32.5Comment: Testing | 32.0 - 35.5 | EXTERNAL | | | | performed at [facility];[address] | g/dL | LAB | | | | [address];[place] | | | | | | [address] | | | | + + + + + + | RDW-CV | 47.3Comment: Testing | 37 - 53 fl | EXTERNAL | | | | performed at [facility];[address] | | LAB | | | | [address];[place] | | | | | | [address] | | | | + + + + + + | Platelet | 221Comment: Testing | 150 - 400 K/uL | EXTERNAL | | | Count | performed at [facility];[address] | | LAB | | | Plasma | [address];[place] | | | | | | [address] | | | | + + + + + + | MPV | 10.3Comment: Testing | fl | EXTERNAL | | | | performed at [facility];[address] | | LAB | | | | [address];[place] | | | | | | [address] | | | | + + + + + + + + | Specimen | + + | | + + + +---------+ + + | Performing | Address | City/State/Zipcode | Phone Number | | Organization | | | | + +---------+ + + | EXTERNAL LAB | | | | + +---------+ + + PTT (12/29/2015 5:56 PM PDT) + + + + + + | Component | Value | Ref Range | Performed | Pathologist | | | | | At | Signature | + + + + + + | aPTT, | 25Comment: Testing | 23 - 32 seconds | EXTERNAL | | | Patient | performed at [facility];[address] | | LAB | | | | [address];[place], [place] | | | | | | [address] | | | | + + + + + + + + | Specimen | + + | Blood specimen | | (specimen) | + + + +---------+ + + | Performing | Address | City/State/Zipcode | Phone Number | | Organization | | | | + +---------+ + + | EXTERNAL LAB | | | | + +---------+ + + Protime INR (12/29/2015 5:56 PM PDT) + + + + + + | Component | Value | Ref Range | Performed | Pathologist | | | | | At | Signature | + + + + + + | INR | 1.0Comment: REFERENCE | | EXTERNAL | | | | RANGE:0.9 - 1.2 | | LAB | | | | NON-ANTICOAGULATED2.0 | | | | | | - 3.0 ALL OTHER | | | | | | THERAPEUTIC | | | | | | INDICATIONS2.5 - 3.5 | | | | | | MECHANICAL HEART VALVES, | | | | | | RECURRENT OR SYSTEMIC | | | | | | EMBOLISMTesting | | | | | | performed at [facility];[address] | | | | | | [address];[place], [place] | | | | | | [address] | | | | + + + [...]
--- OUTSIDE RECORDS SUMMARY | ~2019-12-11 | XMS | Encounter Summary ---
Demographics + + + | Address | [address] | | | [place] [address] | + + + | Home Phone | | + + + | Preferred Language | Unknown | + + + | Marital Status | Single | + + + | Spiritism Affiliation | Unknown | + + + | Race | White | + + + | Ethnic Group | Not or | + + + Author + + + | Author | [facility] | | | and [place] | + + + | Organization | [facility] | | | [...] Team Providers + +------+ + | Care Rocket Motor Tester Name | Role | Phone | + +------+ + PCP | Unavailable | + +------+ + Encounter Details +--------+ + + + + | Date | Type | Department | Care Team | Description | +--------+ + + + + | 02/02/ | Orders Only | [facility] [place] | Odalys Fajardo, | Chronic airway | | 2011 | | PULMONARY [address] | RN | obstruction, not | | | | [place], | | elsewhere classified | | | | [place] [address] | | (HCC); Other | | | | [phone] | | emphysema (HCC) | +--------+ + + + + Social [...] as of this encounter Plan of Treatment + + +--------+ + + | Name | Type | Priori | Associated Diagnoses | Order Schedule | | | | ty | | | + + +--------+ + + | Pulse oximetry, | Respiratory | Routin | Chronic airway | 1 Occurrences | | overnight study | Care | e | obstruction, not | starting 02/03/2012 | | | | | elsewhere classified | until 02/02/2013 | | | | | (HCC) Other | | | | | | emphysema ([facility]) | | + + +--------+ + + documented as of this encounter Visit Diagnoses + + | Diagnosis | + + | Chronic airway obstruction, not elsewhere classified | + + | Other emphysema (HCC) Other emphysema | + + documented in this encounter"
--- OUTSIDE RECORDS SUMMARY | ~2019-12-11 | XMS | Encounter Summary ---
Demographics + + + | Address | [address] | | | [place] [address] | + + + | Home Phone | | + + + | Preferred Language | Unknown | + + + | Marital Status | Single | + + + | Advent Affiliation | Unknown | + + + [...] Team Providers + +------+ + | Care Business Excellence Manager Name | Role | Phone | + +------+ + | David Arias MD | PCP | | + +------+ + Encounter Details +--------+ + + + + | Date | Type | Department | Care Team | Description | +--------+ + + + + | 11/20/ | Orders Only | [facility] | Mikki Banda MD | Polymyalgia | | 2019 | | RHEUMATOLOGY [address] | [address] | rheumatica (HCC) | | | | [address] | [address], [place] | | | | | [place], [place] | [address] | | | | | [address] | | | | | | [phone] | | | +--------+ + + + [...] of this encounter Plan of Treatment + +------+--------+ + + | Name | Type | Priori | Associated Diagnoses | Order Schedule | | | | ty | | | + +------+--------+ + + | CK Total | Lab | Routin | Polymyalgia | Expected: | | | | e | rheumatica ([facility]) | 12/04/2017, Expires: | | | | | | 12/04/2018 | + +------+--------+ + + | Aldolase | Lab | Routin | Polymyalgia | Expected: | | | | e | rheumatica ([facility]) | 12/04/2017, Expires: | | | | | | 12/04/2018 | + +------+--------+ + + documented as of this encounter Visit Diagnoses + + | Diagnosis | + + | Polymyalgia rheumatica ([facility]) Polymyalgia rheumatica | + + documented in this encounter"
--- OUTSIDE RECORDS SUMMARY | ~2019-12-11 | XMS | Encounter Summary ---
Demographics + + + | Address | [address] | | | [place] [address] | + + + | Home Phone | | + + + | Preferred Language | Unknown | + + + | Marital Status | Single | + + + | Adventism Affiliation | Unknown | + + + [...] Team Providers + +------+ + | Care Mold Cleaning And Storage Supervisor Name | Role | Phone | + +------+ + | David Arias MD | PCP | | + +------+ + Reason for Visit +--------+--------+ + | Reason | Onset | Comments | | | Date | | +--------+--------+ + | Other | 01/25/ | | | | 2019 | | +--------+--------+ + Encounter Details +--------+ + + + + | Date | Type | Department | Care Team | Description | +--------+ + + + + | 01/25/ | Telephone | [facility] [place] | Oleksandr Hyde, | Other | | 2019 | | PULMONARY [address] | MD [address] | | | | | [place], | [place] | | | | | [place] [address] | [address] | | | | | [phone] | | | +--------+ + + + [...] this encounter Miscellaneous Notes Telephone Encounter - Jennyfer Galan RN - 01/25/2019 10:55 AM PDTCalled and notified bharti ashbyviktor. Sent prescription to [facility] in [place]. elephone Encounter - Oleksandr Hyde MD - 9 10:42 AM PDTPlease prescribe a prednisone taper starting at 40 mg a day and decreasing by 10 mg every 2 days until complete.Electronically signed by Oleksandr Hyde MD at 9 10:42 AM PDTTelephone Encounter - Jennyfer Galan RN - 01/25/2019 10:04 AM PDTPatient ca lled the clinic stating she has developed difficulty breathing 2 days ago. She uses her nebu lizer 2 times daily. She has slight non-productive cough. She states it feels like she has c hest congestion and she "can't get a breath in". Denies fever and chills. Denies wheezing. She uses [facility] in [place]. Patient has follow-up with Dr. Hyde on 03/25/19. Will route to Dr. Hyde to further discuss and a return call will be made. Okay per cesar ent. documented in this e ncounter Plan of Treatment Not on filedocumented as of this encounter Visit Diagnoses Not on filedocumented in this encounter
--- OUTSIDE RECORDS SUMMARY | ~2019-12-11 | XMS | Encounter Summary ---
Demographics + + + | Address | [address] | | | [place] [address] | + + + | Home Phone | | + + + | Preferred Language | Unknown | + + + | Marital Status | Single | + + + | Buddhism Affiliation | Unknown | + + + | Race | White | + + + | Ethnic Group | Not or | + + + Author + + + | Author | [facility] | | | and [place] | + + + | Organization | [facility] | | [...] Team Providers + +------+ + | Care Shake Table Operator Name | Role | Phone | [...] | | | IMAGING [address] | [place] | | | | | [address] | [place] [address] | | | | | [place] [address] | | | | | | [phone] | | | +--------+ + + + [...] +--------+ + + + | XR CHEST AP PORTABLE | Routin | 01/30/2018 | | Results for this | | | e | 9:35 PM | | procedure are in the | | | | PDT | | results section. | + +--------+ + + + documented in this encounter Results XR Chest AP Portable (01/30/2018 9:35 PM PDT) + + | Specimen | [...]
--- OUTSIDE RECORDS SUMMARY | ~2019-12-11 | XMS | Encounter Summary ---
Demographics + + + | Address | [address] | | | [place] [address] | + + + | Home Phone | | + + + | Preferred Language | Unknown | + + + | Marital Status | Single | + + + | Muslim Affiliation | Unknown | + + + | Race | White | + + + | Ethnic Group | Not or | + + + Author + + + | Author | [facility] | | | and [place] | + + + | Organization | [facility] | | | [...] Team Providers + +------+ + | Care Roll Mill Operator Name | Role | Phone | [...] + + | 06/23/ | Refill | [facility] | Isaias Decker MD | Medication Refill | | 2020 | | CARDIOLOGY [address] | [address] | | | | | [address] | [place] [address] | | | | | [place], [place] | [phone] | | | | | [address] | | | | | | [phone] | | | +--------+--------+ + + + [...]
--- OUTSIDE RECORDS SUMMARY | ~2019-12-11 | XMS | Encounter Summary ---
Demographics + + + | Address | [address] | | | [place] [address] | + + + | Home Phone | | + + + | Preferred Language | Unknown | + + + | Marital Status | Single | + + + | Hoahaoism Affiliation | OTH | + + + | Race | White | + + + | Ethnic Group | Not or | + + + Author + + + | Author | [facility] | + + + | Organization | [facility] | + + + | Address | Unknown | + + + | Phone | Unavailable | + + + Support + + +---------+ + | Name | Relationship | Address | Phone | + + +---------+ + | Osorio Bourgeois | ECON | Unknown | Unavailable | + + +---------+ + Care Team Providers + +------+ + | Care Machine Shop Worker Name | Role | Phone | + +------+ + | David Arias MD | PCP | | + +------+ + Reason for Referral Diagnostic Testing (Routine) +--------+--------+ + + + + | Status | Reason | Specialty | Diagnoses / | Referred By | Referred To | | | | | Procedures | Contact | Contact | +--------+--------+ + + + + | Closed | | Radiology | Diagnoses | Katty, | Rad Ct Scan | | | | | Chronic | Verona Wetzel, | [facility] [address] | | | | | frontal | PA-C [address] | Matty Garcia | | | | | sinusitis | Ryan Brunner | Savanna Sandoval OHJOSE | | | | | Procedures | [place], [place] | [facility], | | | | | CT SINUS | [address] | 10[address] Floor | | | | | [place] | Phone: | [place], [place] | | | | | [address] | [phone] | [address] | | | | | | Fax: | Phone: | | | | | | [phone] | [phone] | | | | | | | Fax: | | | | | | | [phone] | +--------+--------+ + + + + Reason for Visit Diagnostic Testing (Routine) +--------+--------+ + + + + | Status | Reason | Specialty | Diagnoses / | Referred By | Referred To | | | | | Procedures | Contact | Contact | +--------+--------+ + + + + | Closed | | Radiology | Diagnoses | Katty, | Rad Ct Scan | | | | | Chronic | Verona Wetzel, | [facility] [address] | | | | | frontal | PA-C [address] | Matty Garcia | | | | | sinusitis | Ryan Brunner | Savanna HUERTA | | | | | Procedures | [place], [place] | [facility], | | | | | CT SINUS | [address] | [facility] Floor | | | | | [place] | Phone: | [place], [place] | | | | | [address] | [phone] | [address] | | | | | | Fax: | Phone: | | | | | | [phone] | [phone] | | | | | | | Fax: | | | | | | | [phone] | +--------+--------+ + + + + Encounter Details +--------+ + + + + | Date | Type | Department | Care Team | Description | +--------+ + + + + | 09/25/ | Hospital | Radiology/Imaging | | | | 2011 | Encounter | Lab at [facility] [address] | | | | | | [facility] | | | | | | [facility], | | | | | | [address] | | | | | | [place], [place] | | | | | | [address] | | | | | | [phone] | | | +--------+ + + + [...] | | | | | | | [place] | | | | | | + + + +---------+ + + | clarithromycin | Take 1 Tab by mouth | 14 Tab | 0 | 09/25/ | | | (BIAXIN) 500 mg Oral [...] daily. | | | | | | [place], Suspension | | | | | | [...] | + +--------+ + + + | CT SINUS WO CONTRAST | Routin | 09/26/2011 | Chronic frontal | Results for this | | ROUTINE | e | 10:58 AM | sinusitis | procedure are in the | | | | PDT | | results section. | + +--------+ + + + documented in this encounter Results CT SINUS [place] PROTOCOL WO (09/26/2011 10:58 AM PDT) + + + + + + | Component | Value | Ref Range | Performed | Pathologist | | | | | At | Signature | + + + + + + | CT SINUS | Clinical information: | | | | | [place] | Chronic frontal | | | | | PROTOCOL WO | sinusitis. Axial images | | | | | | were obtained to the | | | | | | paranasal sinuses | | | | | | coronal andsagittal | | | | | | reconstructions were | | | | | | created. No studies | | | | | | are available | | | | | | forcomparison. The left | | | | | | frontal sinus is small, | | | | | | completely opacified, | | | | | | and there isfocal | | | | | | thinning or possibly | | | | | | discontinuity in the | | | | | | anterior/inferiorwall. | | | | | | The remainder of the | | | | | | paranasal sinuses are | | | | | | clear. There is nomass | | | | | | in the nasal cavity. | | | | | | There bilateral | | | | | | temporomandibular | | | | | | jointdegenerative | | | | | | changes including joint | | | | | | space narrowing right | | | | | | more thanleft and | | | | | | irregularity of the | | | | | | articular surface of | | | | | | each mandibularcondyle. | | | | | | Impression: Opacified | | | | | | small left frontal sinus | | | | | | with | | | | | | probablediscontinuity of | | | | | | the osseous wall as | | | | | | described. Attending | | | | | | Radiologists: Sharla Gutiérrez | | | | | | Molly ParedesAuthor: | | | | | | Sharla Paredes M.D. I | | | | | | have personally viewed | | | | | | this procedure/exam, | | | | | | reviewed this report,and | | | | | | made changes to it | | | | | | where appropriate. | | | | | | Final/Electronically | | | | | | signed / Sharla Gutiérrez | | | | | | Lena 09/26/2011 | | | | | | 11:41 AM | | | | + + + + + + + + | Specimen | + + | | + + + +---------+ + + | Performing | Address | City/State/Zipcode | Phone Number | | Organization | | | | + +---------+ + + | [facility] DEPARTMENT | | | | | RADIOLOGY | | | | + +---------+ + + documented in this encounter Visit Diagnoses + + | Diagnosis | + + | Chronic frontal sinusitis | + + documented in this encounter"
--- OUTSIDE RECORDS SUMMARY | ~2019-12-11 | XMS | Encounter Summary ---
Demographics + + + | Address | [address] | | | [place] [address] | + + + | Home Phone [...] Author + + + | Author | [facility] | | | and [place] | + + + | Organization | [facility] | | [...] Team Providers + +------+ + | Care Tech Ed/Woodshop Teacher Name | Role | Phone | + +------+ + | David Arias MD | PCP | | + +------+ + Encounter Details +--------+ + + + + | Date | Type | Department | Care Team | Description | +--------+ + + + + | 03/15/ | Orders Only | [facility] | Ced, | | | 2013 | | [place] | ABHIJEET Jon | | | | | ECHO [address] | [address] | | | | | [address] [place] | [place] | | | | | [address] | [address] | | | | | [phone] | | | +--------+ + + + [...] + | ECHO COMPLETE | Routin | 03/15/2014 | | Results for this | | | e | 4:37 PM | | procedure are in the | | | | PST | | results section. | + +--------+ + + + documented in this encounter Results ECHO Complete (03/15/2014 4:37 PM PST) + + | Specimen | + + | | + + + + + | Impressions | Performed At | + + + | 1. Overall left ventricular systolic function is normal with, an EF | | | between 55 - 60 %. 2. The diastolic filling pattern indicates | | | impaired relaxation consistent with mild dysfunction (Grade I). 3. | | | Moderate tricuspid regurgitation present. 4. There is mild pulmonary | | | hypertension. | | + + + + + + | Narrative | Performed At | + + + | Patient Name: NATALY BRASHER Date of : 1940 | | | Performing Physician: Isaias Decker MD | | | | | | INDICATIONS NSTEMI CONCLUSIONS 1. | | | Overall left ventricular systolic function is normal with, an EF | | | between 55 - 60 %. 2. The diastolic filling pattern indicates | | | impaired relaxation consistent with mild dysfunction (Grade I). 3. | | | Moderate tricuspid regurgitation present. 4. There is mild pulmonary | | | hypertension. FINDINGS -------- ECG rhythm: Sinus rhythm. | | | Study: A 2-dimensional transthoracic echocardiogram with m-mode, | | | spectral and color flow Doppler was perfomed. Study: This was a | | | technically adequate study. Left Ventricle: Overall left ventricular | | | systolic function is normal with, an EF between 55 - 60 %. Left | | | Ventricle: The left ventricle cavity size is normal. Left Ventricle: | | | Left ventricular wall thickness is normal. Left Ventricle: No | | | regional wall motion abnormalities. Left Ventricle: The diastolic | | | filling pattern indicates impaired relaxation consistent with mild | | | dysfunction (Grade I). Right Ventricle: The right ventricle is normal | | | in size. Left Atrium: The left atrium is normal in size. Right | | | Atrium: The right atrium is normal in size. Aortic Valve: The aortic | | | valve is trileaflet and appears structurally normal. Aortic Valve: | | | Trace amount of aortic regurgitation. Aortic Valve: There is no | | | evidence of aortic stenosis. Mitral Valve: The mitral valve is | | | normal. Mitral Valve: Mild mitral regurgitation is present. | | | Tricuspid Valve: The tricuspid valve appears structurally normal. | | | Tricuspid Valve: Moderate tricuspid regurgitation present. Tricuspid | | | Valve: There is mild pulmonary hypertension. Tricuspid Valve: The | | | right ventricular systolic pressure (pulmonary artery systolic | | | pressure), as measured by Doppler, is 43.80mmHg. Pulmonic Valve: The | | | pulmonic valve was not well visualized. Pulmonic Valve: Trace | | | pulmonic regurgitation. Pericardium: There is no pericardial | | | effusion. IVC/Hepatic Veins: The IVC is normal size (1.5-2.5cm) and | | | collapses >50% with sniff, consistent with central venous pressures of | | | 5-10mmHg. Aorta: The aortic root, ascending aorta and aortic arch | | | are normal. Pulmonary Veins: The flow patterns, measured by Doppler, | | | appear normal. MEASUREMENTS Ao asc: 3.54 cm | | | IVC: 1.67 cm LA Major: 4.91 cm EDV(Teich): 83.47 ml IVSd: | | | 0.97 cm LVIDd: 4.30 cm LVPWd: 0.85 cm LVOT Area: 3.71 | | | cm2 LVOT Diam: 2.17 cm %FS: 37.88 % EF(Teich): 68.32 % | | | ESV(Teich): 26.43 ml LVIDs: 2.67 cm SV(Teich): 57.03 ml RA | | | Major: 4.10 cm RVIDd: 2.92 cm LVEF MOD A2C: 58.84 % SV | | | MOD A2C: 40.92 ml LVEF MOD A4C: 59.34 % SV MOD A4C: 43.12 | | | ml EF Biplane: 59.19 % LVEDV MOD BP: 71.04 ml LVESV MOD BP: | | | 28.99 ml LVEDV MOD A2C: 69.53 ml LVLd A2C: 7.14 cm LVEDV | | | MOD A4C: 72.65 ml LVLd A4C: 7.13 cm LVESV MOD A2C: 28.61 ml | | | LVLs A2C: 5.73 cm LVESV MOD A4C: 29.53 ml LVLs A4C: 5.80 | | | cm LAESV(A-L): 40.31 ml LAESV Index (A-L): 23.99 ml/m2 LAAs | | | A2C: 14.64 cm2 LAESV A-L A2C: 36.00 ml LALs A2C: 5.05 cm | | | LAAs A4C: 16.06 cm2 LAESV A-L A4C: 44.22 ml LALs A4C: 4.95 | | | cm Ao Diam: 3.31 cm LA Diam: 3.25 cm LA/Ao: 0.98 AV | | | maxP.17 mmHg AV meanP.70 mmHg AV Vmax: 1.13 m/s AV | | | Vmean: 0.78 m/s AV VTI: 22.44 cm VARUN Vmax: 2.54 cm2 VARUN | | | (VTI): 2.41 cm2 LVOT maxP.43 mmHg LVOT meanP.26 | | | mmHg LVSI Dopp: 32.24 ml/m2 LVSV Dopp: 54.16 ml LVOT Vmax: | | | 0.78 m/s LVOT Vmean: 0.51 m/s LVOT VTI: 14.59 cm IVRT: | | | 89.96 ms MV A Dmitriy: 1.12 m/s MV Dec Finney: 4.26 m/s2 MV DecT: | | | 183.70 ms MV E Dmitriy: 0.78 m/s MV E/A Ratio: 0.69 MV PHT: | | | 53.27 ms MVA By PHT: 4.12 cm2 Septal e': 0.06 m/s Septal | | | E/e': 11.61 Lateral e': 0.07 m/s Lateral E/e': 10.24 RAP: | | | 5 mmHg RVSP: 43.79 mmHg TR maxP.79 mmHg TR Vmax: | | | 3.11 m/s Machine Umbrella Tipper: JESUS ALBERTO Authenticated by: Isaias Decker MD | | | Report Date/Time: -- [id number] | | + + + + + | Procedure Note | + + | Jerrell, Rad Conversion - 11/26/2018 9:39 PM PDT Patient Name: Divina BRASHER of | | : 1940 Performing Physician: Isaias Decker | | MD INDICATIONS N | | STEMI CONCLUSIONS 1. Overall left ventricular systolic function is normal | | with, an EF between 55 - 60 %.2. The diastolic filling pattern indicates impaired | | relaxation consistent with mild dysfunction (Grade I).3. Moderate tricuspid | | regurgitation present.4. There is mild pulmonary hypertension. FINDINGS--------ECG | | rhythm: Sinus rhythm.Study: A 2-dimensional transthoracic echocardiogram with m-mode, | | spectral and color flow Doppler was perfomed.Study: This was a technically adequate | | study.Left Ventricle: Overall left ventricular systolic function is normal with, an EF | | between 55 - 60 %.Left Ventricle: The left ventricle cavity size is normal.Left | | Ventricle: Left ventricular wall thickness is normal.Left Ventricle: No regional wall | | motion abnormalities.Left Ventricle: The diastolic filling pattern indicates impaired | | relaxation consistent with mild dysfunction (Grade I).Right Ventricle: The right | | ventricle is normal in size.Left Atrium: The left atrium is normal in size.Right Atrium: | | The right atrium is normal in size.Aortic Valve: The aortic valve is trileaflet and | | appears structurally normal.Aortic Valve: Trace amount of aortic regurgitation.Aortic | | Valve: There is no evidence of aortic stenosis.Mitral Valve: The mitral valve is | | normal.Mitral Valve: Mild mitral regurgitation is present.Tricuspid Valve: The tricuspid | | valve appears structurally normal.Tricuspid Valve: Moderate tricuspid regurgitation | | present.Tricuspid Valve: There is mild pulmonary hypertension.Tricuspid Valve: The right | | ventricular systolic pressure (pulmonary artery systolic pressure), as measured by | | Doppler, is 43.80mmHg.Pulmonic Valve: The pulmonic valve was not well | | visualized.Pulmonic Valve: Trace pulmonic regurgitation.Pericardium: There is no | | pericardial effusion.IVC/Hepatic Veins: The IVC is normal size (1.5-2.5cm) and collapses | | >50% with sniff, consistent with central venous pressures of 5-10mmHg.Aorta: The aortic | | root, ascending aorta and aortic arch are normal.Pulmonary Veins: The flow patterns, | | measured by Doppler, appear normal. MEASUREMENTS Ao asc: 3.54 cmIVC: | | 1.67 cmLA Major: 4.91 cmEDV(Teich): 83.47 mlIVSd: 0.97 cmLVIDd: 4.30 cmLVPWd: | | 0.85 cmLVOT Area: 3.71 [id number] Diam: 2.17 cm%FS: 37.88 %EF(Teich): 68.32 | | %ESV(Teich): 26.43 mlLVIDs: 2.67 cmSV(Teich): 57.03 mlRA Major: 4.10 cmRVIDd: | | 2.92 cmLVEF MOD A2C: 58.84 %SV MOD A2C: 40.92 mlLVEF MOD A4C: 59.34 %SV MOD A4C: | | 43.12 mlEF Biplane: 59.19 %LVEDV MOD BP: 71.04 mlLVESV MOD BP: 28.99 mlLVEDV MOD | | A2C: 69.53 mlLVLd A2C: 7.14 cmLVEDV MOD A4C: 72.65 mlLVLd A4C: 7.13 cmLVESV MOD | | A2C: 28.61 mlLVLs A2C: 5.73 cmLVESV MOD A4C: 29.53 mlLVLs A4C: 5.80 | | cmLAESV(A-L): 40.31 mlLAESV Index (A-L): 23.99 ml/m2LAAs A2C: 14.64 [id number] A-L | | A2C: 36.00 mlLALs A2C: 5.05 cmLAAs A4C: 16.06 [id number] A-L A4C: 44.22 mlLALs | | A4C: 4.95 cmAo Diam: 3.31 cmLA Diam: 3.25 cmLA/Ao: 0.98AV maxP.17 mmHgAV | | meanP.70 mmHgAV Vmax: 1.13 m/Stanley Vmean: 0.78 m/Stanley VTI: 22.44 cmAVA Vmax: | | 2.54 cm2AVA (VTI): 2.41 [id number] maxP.43 mmHgLVOT meanP.26 mmHgLVSI Dopp: | | 32.24 ml/m2LVSV Dopp: 54.16 mlLVOT Vmax: 0.78 m/sLVOT Vmean: 0.51 m/sLVOT VTI: | | 14.59 cmIVRT: 89.96 msMV A Dmitriy: 1.12 m/sMV Dec Finney: 4.26 m/s2MV DecT: 183.70 | | msMV E Dmitriy: 0.78 m/sMV E/A Ratio: 0.69MV PHT: 53.27 msMVA By PHT: 4.12 [id number] | | e': 0.06 m/sSeptal E/e': 11.61Lateral e': 0.07 m/sLateral E/e': 10.24RAP: 5 | | mmHgRVSP: 43.79 mmHgTR maxP.79 mmHgTR Vmax: 3.11 m/s Machine Umbrella Tipper: | | DHAuthenticated by: Isaias TONYepvolodymyr Date/Time: -- [id number] | | IMPRESSION: 1. Overall left ventricular systolic function is normal with, an EF between | | 55 - 60 %.2. The diastolic filling pattern indicates impaired relaxation consistent with | | mild dysfunction (Grade I).3. Moderate tricuspid regurgitation present.4. There is mild | | pulmonary hypertension. | |Ao asc: 3.54 cm | |IVC: 1.67 cm | |LA Major: 4.91 cm | |EDV(Teich): 83.47 ml | |IVSd: 0.97 cm | |LVIDd: 4.30 cm | |LVPWd: 0.85 cm | |LVOT Area: 3.71 cm2 | |LVOT Diam: 2.17 cm | |%FS: 37.88 % | |EF(Teich): 68.32 % | |ESV(Teich): 26.43 ml | |LVIDs: 2.67 cm | |SV(Teich): 57.03 ml | |RA Major: 4.10 cm | |RVIDd: 2.92 cm | |LVEF MOD A2C: 58.84 % | |SV MOD A2C: 40.92 ml | |LVEF MOD A4C: 59.34 % | |SV MOD A4C: 43.12 ml | |EF Biplane: 59.19 % | |LVEDV MOD BP: 71.04 ml | |LVESV MOD BP: 28.99 ml | |LVEDV MOD A2C: 69.53 ml | |LVLd A2C: 7.14 cm | |LVEDV MOD A4C: 72.65 ml | |LVLd A4C: 7.13 cm | |LVESV MOD A2C: 28.61 ml | |LVLs A2C: 5.73 cm | |LVESV MOD A4C: 29.53 ml | |LVLs A4C: 5.80 cm | |LAESV(A-L): 40.31 ml | |LAESV Index (A-L): 23.99 ml/m2 | |LAAs A2C: 14.64 cm2 | |LAESV A-L A2C: 36.00 ml | |LALs A2C: 5.05 cm | |LAAs A4C: 16.06 cm2 | |LAESV A-L A4C: 44.22 ml | |LALs A4C: 4.95 cm | |Ao Diam: 3.31 cm | |LA Diam: 3.25 cm | |LA/Ao: 0.98 | |AV maxP.17 mmHg | |AV meanP.70 mmHg | |AV Vmax: 1.13 m/s | |AV Vmean: 0.78 m/s | |AV VTI: 22.44 cm | |VARUN Vmax: 2.54 cm2 | |VARUN (VTI): 2.41 cm2 | |LVOT maxP.43 mmHg | |LVOT meanP.26 mmHg | |LVSI Dopp: 32.24 ml/m2 | |LVSV Dopp: 54.16 ml | |LVOT Vmax: 0.78 m/s | |LVOT Vmean: 0.51 m/s | |LVOT VTI: 14.59 cm | |IVRT: 89.96 ms | |MV A Dmitriy: 1.12 m/s | |MV Dec Finney: 4.26 m/s2 | |MV DecT: 183.70 ms | |MV E Dmitriy: 0.78 m/s | |MV E/A Ratio: 0.69 | |MV PHT: 53.27 ms | |MVA By PHT: 4.12 cm2 | |Septal e': 0.06 m/s | |Septal E/e': 11.61 | |Lateral e': 0.07 m/s | |Lateral E/e': 10.24 | |RAP: 5 mmHg | |RVSP: 43.79 mmHg | |TR maxP.79 mmHg | |TR Vmax: 3.11 m/s | | | |Machine Umbrella Tipper: DH | |Authenticated by: Isaias Decker MD | |Report Date/Time: -[id number] | | | |IMPRESSION: | |1. Overall left ventricular systolic function is normal with, an EF between 55 - 60 %. | |2. The diastolic filling pattern indicates impaired relaxation consistent with mild dysfunc tion (Grade I). | |3. Moderate tricuspid regurgitation present. | |4. There is mild pulmonary hypertension. | + + documented in this encounter Visit Diagnoses Not on filedocumented in this encounter"
--- OUTSIDE RECORDS SUMMARY | ~2019-12-11 | XMS | Encounter Summary ---
Demographics + + + | Address | [address] | | | [place] [address] | + + + | Home Phone [...] Author + + + | Author | [facility] | + + + | Organization | [facility] | + + + | Address | Unknown | + + + | Phone | Unavailable | + + + Support + + +---------+ + | Name | Relationship | Address | Phone | + + +---------+ + | Osorio Bourgeois | ECON | Unknown | Unavailable | + + +---------+ + Care Team Providers + +------+ + | Care Sap Pi Architect Name | Role | Phone | + +------+ + | David Arias MD | PCP | | + +------+ + Reason for Visit + +--------+ + | Reason | Onset | Comments | | | Date | | + +--------+ + | Pre-op evaluation | 10/10/ | | | | 2011 | | + +--------+ + Encounter Details +--------+ + + + + | Date | Type | Department | Care Team | Description | +--------+ + + + + | 10/10/ | Telephone-S | Preoperative | | Pre-op evaluation | | 2011 | cheduled | [facility] at | | | | | | [facility] [address] Floor Day | | | | | | [address] | | | | [address] | | | | | | Mailcode: [id number] | | | | | | [place] | | | | | | [address] [place], [place] | | | | | | [address] | | | | | | [phone] | | | +--------+ + + + + Anesthesia Record + + + + + | Procedure Name | Responsible | Anesthesia Start | Anesthesia Stop Time | | | Anesthesiologist | Time | | + + + + + | LEFT REVISION TOTAL | Dwight Tong MD | 10/14/11 1049 | 10/14/11 1237 | | ETHMOIDECTOMY, LEFT | | | | | FRONTAL SINUSOTOMY, | | | | | IMAGE GUIDANCE | | | | | WITHLASTX AND | | | | | FUSION [...] + +------+ | Meds | +------+ + + + No medications | on file. | + + + + + | No agents on file. | + + + + | No blood administrations on file. | + + +--------+ + + + | Type | Details | Placement | Removal | +--------+ + + + | RETIRE | 10/14/11; 938; 10/14/11; 1510; | 10/14/11938 by | 10/14/110 by | | D - | 18; [...] + + documented as of this encounter Patient Instructions Patient Instructions Karla Gasca RN - 10/11/2011 9:29 AM PDT PREOPERATIVE INSTRUCTIONS Do not eat or drink anything after midnight the night before surgery. TAKE the following medications with a sip of water on the morning of surgery: none Do NOT take the following medications on the morning of surgery: IPRATROPIUM-ALBUTEROL 18 MCG-103 MCG/ACTUATION AEROSOL INHALER Inhale [...] INHALATION DEVICE Inhale 18 mcg once daily. Do not take any Aspirin, vitamin E or non-steroidal anti-inflammatory (NSAIDs i.e. Advil , Aleve, Ibuprofen) or herbal supplements seven days prior to your surgery. These drugs may interfere with normal blood clotting and may cause excessive bleeding and bruising during or after the surgery. If you need a pain medication for general purposes, use Tylenol as directed. If you are in doubt about any medications that you are taking, please contact our office . Important Guidelines Do not smoke, drink alcohol or use recreational drugs for 24 hours before your surgery Do not eat any hard candy or chew gum after midnight the night before your surgery. Watch for any change in your health condition. Let your surgeon know right away if you do not feel well. Do not wear makeup, perfume, lotions or powder. Remove any nail congolese from at least one fingernail. Do not wear any jewelry to the hospital. Wear loose, comfortable clothing. Bring the case and solution for your contact lenses or wear your glasses. Leave all your valuables at home. Allow enough travel time so you re not late for your check in for surgery. Take a bath or shower and remember to shampoo your hair using your usual hair product be fore your arrival at the hospital. Please remember to brush your teeth the night before and the morning of your procedure. Surgery Check in Locations Day Stay Unit [facility], fourth floor Room 6304 Surgery Check in Time: Someone from your surgeon's office or [facility] will provide you with information regarding your check in time. If you have any questions about this, pl ease contact your surgeon's office. Going Home Your surgical team will decide when you are medically ready to go home. If you are released to go home on the same day as your procedure/surgery please note the following: You will not be able to drive. You will be required to have a competent adult drive you or accompany you by taxi or pub lic transportation on the day of discharge. It is also required that you have a competent adult assist you and look after you on the first night after you have undergone regional blocks (72 hours for patients going home with regional block pump), deep sedation, and/or general anesthesia. IIf you have questions or concerns after you go home, call your doctor s office. If i t is after office hours, call the [facility] sandwich machine operator at [phone] and ask them to page your do ctor. documented in this encounter Miscellaneous Notes Telephone Encounter - Karla Gasca RN - 10/11/2011 9:48 AM PDTPhone appointment compl eted as scheduled. Documentation to be found in the Anesthesia Event Encounter tab in [facility]. documented in this en counter Plan of Treatment Not on filedocumented as of this encounter Visit Diagnoses Not on filedocumented in this encounter"
--- OUTSIDE RECORDS SUMMARY | ~2019-12-11 | XMS | Encounter Summary ---
Demographics + + + | Address | [address] | | | [place] [address] | + + + | Home Phone [...] Team Providers + +------+ + | Care Fur Joiner Name | Role | Phone | + +------+ + PCP | Unavailable | + +------+ + Encounter Details +--------+ + + + + | Date | Type | Department | Care Team | Description | +--------+ + + + + | 11/01/ | Hospital | [facility] | | | | 2010 | Encounter | MED CTR XRAY [address] | | | | | | [place] | | | | | | [place] [address] | | | | | | [phone] | | | +--------+ + + + [...] + + + | NM MYOCARDIAL | | 11/01/2010 | | Results for this | | PERFUSION MULT SPECT | | 8:52 AM | | procedure are in the | | | | PDT | | results section. | + +--------+ + + + documented in this encounter Results NM Myocardial Perfusion Mult SPECT (11/01/2010 8:52 AM PDT) + + | Specimen | + + | | + + + + + | Narrative | Performed At | + + + | [facility] Diagnostic Imaging Department | [facility] | | [address], [facility] | [facility] | | REGADENOSON STRESS TEST, | DIAG IMG | | 11/01/2010 PROCEDURE: In the supine position, 0.4 mg of | | | Regadenoson was transfused intravenously with 10 seconds . Blood | | | pressure and EKG were monitored very 1 minute. 5 mL of normal | | | saline was used to flush the IV line. Twenty seconds after the | | | injection of the Regadenoson, 33.9 mCi of the sestamibi was given | | | intravenously. Patient was taken to the nuclear medicine department. | | | SPECT myocardial perfusion imagi ng was acquired with wall motion | | | analysis. Rest imaging was performed using a 11.6 mCi of sestamibi i | | | ntravenous injection. Repeat SPECT myocardial perfusion imaging was | | | acquired with wall motion analysi s. HEMODYNAMICS: Heart rate | | | baseline 67 beats per minute, peak 98 beats per minute. Blood pressure | | | basel ine 109/62 mmHg, peak 125/64 mmHg. EKG baseline underlying a | | | normal sinus rhythm. A nonspecific ST-T abnormality. Peak unchanged. | | | SIDE EFFECTS: The patient has trouble breathing and headache | | | during procedure. ARRHYTHMIA: None. REGADENOSON SESTAMIBI | | | MYOCARDIAL PERFUSION IMAGING RESULT The Regadenoson sestamibi | | | tomographic images, reviewed without the attenuation compensation | | | resolutio n, revealed a normal myocardial perfusion pattern as seen | | | in short axis, vertical long axis, and hori zontal long axis | | | projections. The left ventricular cavity is normal. The rest imaging | | | is also normal. Gated SPECT reveals a normal left ventricular | | | wall thickness and motion. Preserved left ventricular systolic | | | function. LVEF by gated SPECT is 72%. IMPRESSION: 1. REGADENOSON | | | EKG IS NEGATIVE. 2. A NORMAL REGADENOSON SESTAMIBI MYOCARDIAL | | | PERFUSION IMAGING STUDY. NORMAL LEFT VENTRICULAR SIZE, W ALL | | | THICKNESS AND MOTION. PRESERVED LEFT VENTRICULAR SYSTOLIC FUNCTION. | | | LVEF BY GATED SPECT IS 72%. Dictated Date/Time: 11/01/2010 | | | 15:25 Transcribed Date/Time: 11/01/2010 15:54 Associate Professor Of Law: | | | <Electronically Signed by Pooja Owens MD [facility]> | | | 11/02/10 0612 | | + + + + + | Procedure Note | + + | Jerrell, Rad Conversion - 05/14/2013 3:29 PM [facility] | | Diagnostic Imaging Department [address] [facility] | | REGADENOSON STRESS TEST, 11/01/2010 PROCEDURE: In the | | supine position, 0.4 mg of Regadenoson was transfused intravenously with 10 seconds. | | Blood pressure and EKG were monitored very 1 minute. 5 mL of normal saline was used to | | flush the IV line. Twenty seconds after the injection of the Regadenoson, 33.9 mCi of | | the sestamibi was given intravenously. Patient was taken to the nuclear medicine | | department. SPECT myocardial perfusion imaging was acquired with wall motion analysis. | | Rest imaging was performed using a 11.6 mCi of sestamibi intravenous injection. Repeat | | SPECT myocardial perfusion imaging was acquired with wall motion analysis. | | HEMODYNAMICS: Heart rate baseline 67 beats per minute, peak 98 beats per minute. Blood | | pressure baseline 109/62 mmHg, peak 125/64 mmHg. EKG baseline underlying a normal sinus | | rhythm. A nonspecific ST-T abnormality. Peak unchanged. SIDE EFFECTS: The patient has | | trouble breathing and headache during procedure. ARRHYTHMIA: None. REGADENOSON | | SESTAMIBI MYOCARDIAL PERFUSION IMAGING RESULT The Regadenoson sestamibi tomographic | | images, reviewed without the attenuation compensation resolution, revealed a normal | | myocardial perfusion pattern as seen in short axis, vertical long axis, and horizontal | | long axis projections. The left ventricular cavity is normal. The rest imaging is also | | normal. Gated SPECT reveals a normal left ventricular wall thickness and motion. | | Preserved left ventricular systolic function. LVEF by gated SPECT is 72%. IMPRESSION:1. | | REGADENOSON EKG IS NEGATIVE. 2. A NORMAL REGADENOSON SESTAMIBI MYOCARDIAL PERFUSION | | IMAGING STUDY. NORMAL LEFT VENTRICULAR SIZE, WALL THICKNESS AND MOTION. PRESERVED LEFT | | VENTRICULAR SYSTOLIC FUNCTION. LVEF BY GATED SPECT IS 72%. Dictated Date/Time: | | 11/01/2010 15:25Transcribed Date/Time: 11/01/2010 15:54Transcriptionist: | | <Electronically Signed by Pooja Owens MD [facility]> 11/02/10 0612 | | | |The Regadenoson sestamibi tomographic images, reviewed without the attenuation compensation resolutio | |n, revealed a normal myocardial perfusion pattern as seen in short axis, vertical long axis , and hori | |zontal long axis projections. The left ventricular cavity is normal. The rest imaging is al so normal. | | | | | |Gated SPECT reveals a normal left ventricular wall thickness and motion. Preserved left ve ntricular | |systolic function. LVEF by gated SPECT is 72%. | | | |IMPRESSION: | |1. REGADENOSON EKG IS NEGATIVE. | | | |2. A NORMAL REGADENOSON SESTAMIBI MYOCARDIAL PERFUSION IMAGING STUDY. NORMAL LEFT VENTRICUL AR SIZE, W | |ALL THICKNESS AND MOTION. PRESERVED LEFT VENTRICULAR SYSTOLIC FUNCTION. LVEF BY GATED SPECT IS 72%. | | | |Dictated Date/Time: 11/01/2010 15:25 | |Transcribed Date/Time: 11/01/2010 15:54 | |Associate Professor Of Law: | |<Electronically Signed by Pooja Owens MD [facility]> 11/02/10611 | + + + +---------+ + + | Performing | Address | City/State/Zipcode | Phone Number | | Organization | | | | + +---------+ + + | [place] | | | | | [place] | | | | + +---------+ + + documented in this encounter Visit Diagnoses Not on filedocumented in this encounter"
--- OUTSIDE RECORDS SUMMARY | ~2019-12-11 | XMS | Encounter Summary ---
Demographics + + + | Address | [address] | | | [place] [address] | + + + | Home Phone [...] Author + + + | Author | [facility] | | | and [place] | + + + | Organization | [facility] | | | [...] Team Providers + +------+ + | Care Edge Sawyer Name | Role | Phone | + +------+ + | David Arias MD | PCP | | + +------+ + Reason for Visit +--------+ + | Reason | Comments | +--------+ + | COPD | f/u | +--------+ + Encounter Details +--------+---------+ + + + | Date | Type | Department | Care Team | Description | +--------+---------+ + + + | 08/01/ | [facility] | Oleksandr Hyde, | COPD exacerbation | | 2014 | Visit | PULMONARY [address] | MD [address] | ([facility]) (Primary Dx); | | | | [place], | [place] | COPD | | | | [place] [address] | [address] | | | | | [phone] | | | +--------+---------+ + + + [...] + + + | Blood Pressure | 122/78 | 2014 1:43 PM | | | | | PDT | | + + + + + | Pulse | 112 | 2014 1:43 PM | | | | | PDT | | + + + + + | Temperature | 37.3 C (99.2 F) | 2014 1:43 PM | | | | | PDT | | + + + + + | Respiratory Rate | 18 | 2014 1:43 PM | | | | | PDT | | + + + + + | Oxygen Saturation | 100% | 2014 1:43 PM | room air | | | | PDT | | + + + + + | Inhaled Oxygen | - | - | | | Concentration | | | | + + + + + | Weight | 62 kg (136 lb 9.6 | 2014 1:43 PM | | | | oz) | PDT | | + + + + + | Height | 162.6 cm (5' 4") | 2014 1:43 PM | | | | | PDT | | + + + + + | Body Mass Index | 23.45 | 2014 1:43 PM | | | | | PDT | | + + + + + documented in this encounter Patient Instructions Patient Instructions Oleksandr Hyde MD - 2014 2:52 PM PDT COPD Flare You have had [...] perfumes. Follow-up care Follow up with your health care provider. If a culture was done, you will be told if your treatment needs to be changed. You can call in 2 to 3 days, or as directed, for the results. If X-rays were done, and [...] When to seek medical advice Call your health care provider right awayifany of these occur: Wheezing or shortness of breath gets worse You need to use your inhalers more often than usual without relief Fever of 100.4F(38C) or higher, or as directed by your health care provider Coughing up lots of dark-colored or bloody sputum (mucus) Chest pain with each breath You do not start to get better within 24 hours Swelling or your ankles gets worse Dizziness or weakness [id number] [place] [address], [place] [address]. All [facility] reserved. This information is not intended as a substitute for professional medical care. Always follow your healthcare professional's instructions. documented in this encounter Progress Notes Oleksandr Hyde MD - 2014 2:42 PM PDTFormatting of this note might be different f rom the original. Pulmonary Follow Up 2014 YUMI Priscila Brasher is a 74 y.o. female patient of David Arias M.D. here today for follow up of COPD. The last pulmonary clinic visit was on 06/11/13. Since their last appointment they feel like their breathing issues have been stable. They have had any acute pulmonary illnesses. The patient states that 3-4 days ago she deve loped sudden onset of cough productive of yellow phlegm and worsening shortness of breath. The patient has not required a prednisone taper since our last clinic appointment. PabloVega Brasher has not required antibiotics for a COPD exacerbation since our last clin ic appointment. They are currently on a daily regimen of when necessary DuoNeb for their COPD. They do fee l like this medication regimen is controlling their symptoms. The patient is unable to affo rd other COPD medications. They are using their DuoNeb nebulizer, 2 times a day. Currently the patient is able to walk 30 feet at their own pace on level ground before deve loping dyspnea. Prior to this illness they are not exercising regularly. The patient does cough chronically, and does produce mucous. The mucous is yellow in color. They have not had hemoptysis since our last appointment. She has been evaluated for nocturnal oxygen. They currently are using nocturnal oxygen. T luis are currently on 2 LPM at night while sleeping. They have not reported recent symptoms of nasal congestion, runny nose or post nasal drip. The patient have received this year's influenza vaccination. They are up to date with thei r Pneumovax. Fever to 100 is reported. The patient is also felt cold. There is no history of chest antonio n or diaphoresis. Her current symptoms do not appear similar to those experienced with her heart attack from December 2013. Past Medical History Past Medical History Diagnosis [...] while Valvular heart disease Polio 1950 Acute [place] (HCC) 12/15/13 4 stents placed Social History: She reports that she quit smoking about 25 years ago. Her smoking use included Cigarettes. She has a 180 pack-year smoking history. She has never used smokeless tobacco. She reports t hat she does not drink alcohol or use illicit drugs. Allergies: Allergies Allergen Reactions Penicillins Anaphylaxis Codeine Sulfate Nausea And Vomiting Tetanus Toxoids Hives Medications: Current outpatient prescriptions:albuterol-ipratropium (DUONEB) 2.5-0.5 mg/3 mL SOLN, Take 3 mLs by nebulization every 4 hours as needed., Disp: , Rfl: ; amitriptyline (ELAVIL) 25 mg tablet, Take 25 mg by mouth nightly., Disp: , Rfl: ; azithromycin (ZITHROMAX) 250 mg table t, Take 1 tablet by mouth Daily for 5 days. 2 tabs now, then 1 tab daily until gone, Disp: 6 tablet, Rfl: 0 Cholecalciferol (VITAMIN D3) 69437 UNITS CAPS, Take 1 capsule by mouth Once a week. Every T , Disp: , Rfl: ; Cranberry-Vitamin C-Probiotic (AZO CRANBERRY PO), Take 2 capsules by mouth Daily., Disp: , Rfl: ; cyclobenzaprine (FLEXERIL) 5 MG tablet, Take 5 mg by mouth 3 times daily as needed., Disp: , Rfl: ; diclofenac (VOLTAREN) 75 mg EC tablet, Take 75 mg by mouth Daily., Disp: , Rfl: fish oil 1,000 mg capsule, Take 2,000 mg by mouth Daily., Disp: , Rfl: ; Fluticasone Propi gerson (FLONASE NA), once daily, Disp: , Rfl: ; metoclopramide (REGLAN) 10 mg tablet, Take 1 0 mg by mouth 4 times daily as needed., Disp: , Rfl: ; metoprolol succinate (TOPROL-XL) 25 mg 24 hr tablet, Take 1.5 tablets by mouth Daily., Disp: 45 tablet, Rfl: 6; misoprostol (CY TOTEC) 200 MCG tablet, Take 200 mcg by mouth Daily., Disp: , Rfl: naproxen (NAPROSYN) 500 mg tablet, Take 500 mg by mouth Twice daily as needed., Disp: , Rf l: ; oxygen, Inhale 2 L into the lungs nightly., Disp: , Rfl: ; predniSONE (DELTASONE) 10 mg tablet, 4 tabs daily in morning with food. Please decrease by 1 tab every 3 days until ta per is complete., Disp: 30 tablet, Rfl: 0; SUMAtriptan (IMITREX) 100 mg tablet, Take 100 mg by mouth as needed., Disp: , Rfl: topiramate (TOPAMAX) 100 mg tablet, Take 100 mg by mouth Daily., Disp: , Rfl: ; warfarin ( COUMADIN) 2.5 mg tablet, , Disp: , Rfl: ; warfarin (COUMADIN) 5 mg tablet, , Disp: , Rfl: Immunizations: Immunization History Administered Date(s) Administered INFLUENZA, TRIVALENT PRESERVATIVE FREE (PED/ADOL/ADULT) 01/20/2012, 01/19/2013 PNEUMOCOCCAL POLYSACCHARIDE 23-VALENT (PPSV23) 04/07/1996, 12/10/2012 TDAP, [...] Denies urticaria and allergic rash. Objective BP 122/78 | Pulse 112 | Temp(Src) 37.3 C (99.2 F) (Temporal) | Resp 18 | Ht 1.626 m (5' 4") | Wt 61.961 kg (136 lb 9.6 oz) | BMI 23.44 kg/m2 | SpO2 100% follow-up heart rate with rest of 90. Appearance: Alert, cooperative, no distress, appears stated age. Head: Normocephalic, without obvious abnormality, atraumatic. Eyes: PERRL, conjunctiva/corneas clear. Nose: Nares normal, septum midline, mucosa normal, no drainage or sinus tenderness. Throat: Oral mucosa and tongue are normal. No thrush. Neck: Supple, no JVD Lungs: No accessory muscle use, breath sounds few expiratory wheezes. No crackles or rho nchi. No dullness to percussion. Chest Wall: No tenderness or deformity. Heart: Regular rate and rhythm. S1, S2 normal. No murmur, rubs or gallops. Extremities: Extremities normal/atraumatic. No cyanosis, clubbing. no edema. Skin: Warm and dry. Lymph nodes: No significant cervical and supraclavicular nodes. Neurologic: Gait normal. No apparent weakness. Data: None Assessment 1. Apparent COPD exacerbation 3-4 day history of cough productive of purulent sputum and worsening shortness of breath. The patient has evidence of wheezing on exam. A COPD exacerbation appears to be the most likely explanation for her symptoms. Treatment with antibiotic and prednisone seem reasonable. 2. COPD historically treated with as needed albuterol/ipratropium via nebulizer. Additi onal pulmonary medications are not possible secondary to financial constraints. Plan 1. I've encouraged the patient to increase her use of DuoNeb until her symptoms improved. 2. Prednisone taper as described above. 3. Z-Duong over 5 days. 4. Pulmonary clinic follow-up appointment in 3 weeks time. We'll discuss Prevnar 13 at th at time. CC: David Arias documented in this encounter Plan of Treatment Not on filedocumented as of this encounter Visit Diagnoses + + | Diagnosis | + + | COPD exacerbation (HCC) - Primary Obstructive chronic bronchitis with exacerbation | + + | COPD Chronic airway obstruction, not elsewhere classified | + + documented in this encounter
--- OUTSIDE RECORDS SUMMARY | ~2019-12-11 | XMS | Encounter Summary ---
Demographics + + + | Address | [address] | | | [place] [address] | + + + | Home Phone | | + + + | Preferred Language | Unknown | + + + | Marital Status | Single | + + + | Amish Affiliation | Unknown | + + + [...] Team Providers + +------+ + | Care Cable Television Access Coordinator Name | Role | Phone | + [...] | | | IMAGING [address] | [place] | | | | | [address] [place] | [place] [address] | | | | | [place] [address] | | | | | | [phone] | | | +--------+ + + + [...] + +--------+ + + + | CT ANGIOGRAM | Routin | 01/28/2018 | | Results for this | | PULMONARY | e | 4:25 PM | | procedure are in the | | | | PDT | | results section. | + +--------+ + + + documented in this encounter Results CT Angiogram Pulmonary (01/28/2018 4:25 PM PDT) + + | Specimen | [...]
--- OUTSIDE RECORDS SUMMARY | ~2019-12-11 | XMS | Encounter Summary ---
Demographics + + + | Address | [address] | | | [place] [address] | + + + | Home Phone | | + + + | Preferred Language | Unknown | + + + | Marital Status | Single | + + + | Shinto Affiliation | Unknown | + + + | Race | White | + + + | Ethnic Group | Not or | + + + Author + + + | Author | [facility] | | | and [place] | + + + | Organization | [facility] | | | [...] Team Providers + +------+ + | Care Almond Blancher Name | Role | Phone | + +------+ + | David Arias MD | PCP | | + +------+ + Encounter Details +--------+ + + + + | Date | Type | Department | Care Team | Description | +--------+ + + + + | 06/14/ | Orders Only | [facility] | [place], | | | 2014 | | CARDIOLOGY [place] | [place] Jon | | | | | [address] | [address] | | | | | [place], [place] | [place], [place] | | | | | [address] | [address] | | | | | [phone] | | | +--------+ + + + [...] | EXTERNAL LAB: CBC | Routin | 06/14/2014 | | Results for this | | | e | 7:02 AM | | procedure are in the | | | | PDT | | results section. | + +--------+ + + + | LIPID PANEL | Routin | 06/14/2014 | | Results for this | | | e | 7:02 AM | | procedure are in the | | | | PDT | | results section. | + +--------+ + + + | BASIC METABOLIC | Routin | 06/14/2014 | | Results for this | | PANEL | e | 7:02 AM | | procedure are in the | | | | PDT | | results section. | + +--------+ + + + documented in this encounter Results External Lab: CBC (06/14/2014 7:02 AM PDT) + + + + + + | Component | Value | Ref Range | Performed | Pathologist | | | | | At | Signature | + + + + + + | WBC | 9.7 | 4.5 - 11.0 10 | EXTERNAL | | | | | | LAB | | + + + + + + | Non- | 4.46 | 3.8 - 5.1 10 | EXTERNAL | | | Red Blood | | | LAB | | | Cells | | | | | | Counted | | | | | + + + + + + | Hemoglobin | 12.5 | 12.0 - 16.0 | EXTERNAL | | | | | g/dL | LAB | | + + + + + + | Hematocrit, | 40.0 | 35 - 45 % | EXTERNAL | | | POC | | | LAB | | + + + + + + | MCV | 89.7 | 81 - 99 fL | EXTERNAL | | | | | | LAB | | + + + + + + | MCH | 28 | 27 - 33 pg | EXTERNAL | | | | | | LAB | | + + + + + + | MCHC | 31 | 30 - 36 g/dL | EXTERNAL | | | | | | LAB | | + + + + + + | Platelet | 301 | 140 - 440 K/ L | EXTERNAL | | | Count | | | LAB | | | Plasma | | | | | + + + + + + | RDW-CV | 14.8 | 10.5 - 15.0 % | EXTERNAL [...] + + + | % Segmented | 43.7 | 39 - 80 % | EXTERNAL | | | | | | LAB | | | Neutrophils | | | | | + + + + + + | % | 40.1 | 24 - 44 % | EXTERNAL | | | Lymphocytes | | | LAB | | + + + + + + | % Monocytes | 13.5 (A) | 0 - 12 % | EXTERNAL | | | | | | LAB | | + + + + + + | % | 1.6 | 0 - 6 % | EXTERNAL | | | Eosinophils | | | LAB | | + + + + + + | % Basophils | 1.1 | 0 - 2 % | EXTERNAL [...] | | | + +---------+ + + Lipid Panel (06/14/2014 7:02 AM PDT) + +---------+ + + + | Component | Value | Ref Range | Performed | Pathologist | | | | | At | Signature | + +---------+ + + + | Cholesterol | 208 (A) | 200 mg/dL | EXTERNAL | | | | | | LAB | | + +---------+ + + + | Triglycerid | 69 | 30 - 150 mg/dL | EXTERNAL | | | es | | | LAB | | + +---------+ + + + | HDL | 68.6 | 40 mg/dl | EXTERNAL | | | | | | LAB | | + +---------+ + + + | LDL, | 126 (A) | 100 mg/dL | EXTERNAL | | | Calculated | | | LAB | | + +---------+ + + + | LDl/HDL | | | EXTERNAL | | | Ratio | | | LAB | | + +---------+ + + + | Chol/HDL | 3.0 | 4.44 | EXTERNAL | | | Ratio | | | LAB | | + +---------+ + + + | VLDL | 14 | 4 - 40 mg/dL | EXTERNAL | | | | | | LAB | | + +---------+ + + + | Non HDL | 139 (A) | 130 | EXTERNAL | | [...] + +---------+ + + Basic Metabolic Panel (06/14/2014 7:02 AM PDT) + +-------+ + + + | Component | Value | Ref Range | Performed | Pathologist | | | | | At | Signature | + +-------+ + + + | Glucose, | 90 | 70 - 100 mg/dL | EXTERNAL | | | Fasting | | | LAB | | + +-------+ + + + | BUN | 15 | 6 - 23 mg/dL | EXTERNAL | | | | | | LAB | | + +-------+ + + + | Creatinine | 0.83 | 0.70 - 1.18 | EXTERNAL | | | | | mg/dL | LAB | | + +-------+ + + + | BUN/Creatin | 18.1 | 6.0 - 28.6 | EXTERNAL | | | ine Ratio | | | LAB | | + +-------+ + + + | Calcium | 9.3 | 8.4 - 10.2 | EXTERNAL | | | | | mg/dL | LAB | | + +-------+ + + + | Na | 141 | 132 - 143 | EXTERNAL | | | | | mmol/L | LAB | | + +-------+ + + + | K | 4.5 | 3.6 - 5.1 | EXTERNAL | | | | | mmol/L | LAB | | + +-------+ + + + | Cl | 108 | 95 - 112 mmol/L | EXTERNAL | | | | | | LAB | | + +-------+ + + + | CO2 | 24 | 19 - 31 mmol/L | EXTERNAL | | | | | | LAB | | + +-------+ + + + | Anion Gap | 13.5 | 7 - 21 mmol/L | EXTERNAL | | | | | | LAB | | + +-------+ + + + | Estimated | 68 | 60 mg/dL | EXTERNAL | | | GFR | | | LAB | | + +-------+ + + + [...]
--- OUTSIDE RECORDS SUMMARY | ~2019-12-11 | XMS | Encounter Summary ---
Demographics + + + | Address | [address] | | | [place] [address] | + + + | Home Phone | | + + + | Preferred Language | Unknown | + + + | Marital Status | Single | + + + | Mu-Ism Affiliation | Unknown | + + + | Race | White | + + + | Ethnic Group | Not or | + + + Author + + + | Author | [facility] | | | and [place] | + + + | Organization | [facility] | | | and [...] Team Providers + +------+ + | Care Hat Copyist Name | Role | Phone | + +------+ + | David Arias MD | PCP | | + +------+ + Reason for Visit +--------+--------+ + | Reason | Onset | Comments | | | Date | | +--------+--------+ + | Other | 06/26/ | release for a gym | | | 2016 | | +--------+--------+ + Encounter Details +--------+ + + + + | Date | Type | Department | Care Team | Description | +--------+ + + + + | 06/26/ | Telephone | [facility] | Oleksandr Hyde, | Other (release for a | | 2016 | | PULMONARY [address] | MD [address] | gym) | | | | [place], | [place] | | | | | [place] [address] | [address] | | | | | [phone] | | | +--------+ + + + [...] this encounter Miscellaneous Notes Telephone Encounter - Amy Busby RN - 06/26/2016 4:05 PM PDTPrescription mailed t o patient at her PO box. elephone Encounter - Amy Busby RN - 06/26/2016 1:58 PM PDTPatient called a nd said the gym she went to to initiate regular exercise as Dr Hyde advised has requeste d she obtain a "written release" from Dr Hyde. Dr Hyde notified. He will hand write a script to send to her. Patient notified. documented in this encounter Plan of Treatment Not on filedocumented as of this encounter Visit Diagnoses Not on filedocumented in this encounter
--- OUTSIDE RECORDS SUMMARY | ~2019-12-11 | XMS | Encounter Summary ---
Demographics + + + | Address | [address] | | | [place] [address] | + + + | Home Phone [...] Team Providers + +------+ + | Care Groundwater Monitoring Technician Name | Role | Phone | + +------+ + PCP | Unavailable | + +------+ + Encounter Details +--------+ + + + + | Date | Type | Department | Care Team | Description | +--------+ + + + + | 11/17/ | Hospital | [facility] | | | | 1995 | Encounter | [facility] | | | | | | CENTER [address] | | | | | | [place] | | | | | | [address] | | | | | | [phone] | | | +--------+ + + + [...]
--- OUTSIDE RECORDS SUMMARY | ~2019-12-11 | XMS | Encounter Summary ---
Demographics + + + | Address | [address] | | | [place] [address] | + + + | Home Phone | | + + + | Preferred Language | Unknown | + + + | Marital Status | Single | + + + | Evangelical Affiliation | OTH | + + + | Race | White | + + + | Ethnic Group | Not or | + + + Author + + + | Author | [facility] | + + + | Organization | [facility] | + + + | Address | Unknown | + + + | Phone | Unavailable | + + + Support + + +---------+ + | Name | Relationship | Address | Phone | + + +---------+ + | Osorio Bourgeois | ECON | Unknown | Unavailable | + + +---------+ + Care Team Providers + +------+ + | Care News Wire Photo Operator Name | Role | Phone | [...] + + + + | 10/13/ | Hospital | [facility] [address] | Oleksandr Haddad, | | | 2011 | Encounter | [address] | MD [address] | | | | | [facility] | [place], [place] | | | | | [facility] | [address] | | | | | (MNP/OLD N) | [phone] | | | | | [place], [place] | | | | | | [address] | | | | | | [phone] | | | +--------+ + + + [...] in this encounter Discharge Instructions Instructions Zainab Berry, KOBE - 10/14/2011Remember You are under the influence [...] | | | | | | | Cassel | | | | | | + [...] daily. | | | | | | Cassel, Suspension | | | | | | [...] | 0 | 09/26/19 | | | (MEDUZIEL REAGAN,) 4 mg | directions. Please | Package [...] documented as of this encounter H&P Notes Other, Faculty - 10/16/2011 2:34 PM PDTElectronically signed by Faculty Other at 2 2:34 PM PDTdocumented in this encounter Procedure Notes Other, Faculty - 01/23/2012 1:57 PM PDTAssociated Order(s): RADIOLOGY ther, Faculty - 10/16/2011 2:34 PM PDTAssociat ed Order(s): PROCEDURE NOTE Other, Faculty - 10/16/2011 2:34 PM PDTAssociated Order(s): PROCEDURE NOTEElectronically si gned by Faculty Other at 10/16/2011 2:34 PM Oleksandr Heredia MD - 10/15/2011 9:33 AM P DTAssociated Order(s): OPERATION RECORD [id number] [facility] [id number] Date: 10/14/2011 Attending Surgeon: Oleksandr Haddad MD, MPH, FACS Assembler Dc Field Yoke(s): Preoperative Diagnosis(es): 1. Chronic maxillary sinusitis. 2. [...] awakening. Oleksandr Haddad MD, MPH, FACS Director, [facility] Professor of Otolaryngology/Head and Neck Surgery [facility] / HS [id number] / [id number] / [id number] / documented in this encounter Miscellaneous Notes [...] + | Transcriptions | + + | Akanksha, Faculty - 10/16/2011 2:34 PM PDT | + + PROCEDURE NOTE (05/12/2015 1:59 AM PST) + + | Transcriptions | + + | Other, Faculty - 10/16/2011 2:34 PM PDT | + + OPERATION RECORD (10/15/2011 1:07 PM PDT) + + | Transcriptions | + + | Oleksandr Haddad MD - 10/15/2011 9:33 AM PDT [id number] | | [id number] [facility] | | [place] [id number] Date: 10/14/2011 Attending Surgeon: | | Oleksandr Haddad MD, MPH, FACS Assembler Dc Field Yoke(s): Preoperative Diagnosis(es):1. | | Chronic maxillary sinusitis.2. [...] | | left lateral nasal wall. 0- [id number] endoscopes were used as indicated throughout | [...] Oleksandr Haddad, | | , MPH, FACSDirector, [facility] CenterProfessor of Otolaryngology/Head and Neck | | Surgery [facility] / [id number] / [id number] / [id number] / T: 10/14/2011 | |Less than 100 [...] |Oleksandr Haddad MD, MPH, FACS | |Director, [facility] | |Professor of Otolaryngology/Head and Neck Surgery | | | | | |TLS / HS | |[id number] / [id number] / [id number] / | | | | | | [...] | Left frontal sinus, [place] | | [facility] | | | SITE | sample | [...] | + + + + + | [facility] | [address] | [place] [address] | | | LAB-MICRO | | | [...] view image for the detailed interpretation from [employer] results. | CARDIOLOGY | + + + + + + + + | Performing | Address | City/State/Zipcode | Phone Number | | Organization | | | | + + + + + | [facility] | [address] | [place], [place] | | | CARDIOLOGY | [address] | [address] | | + + + + + [...] Jonah, | | | | | | M.D./Surgical Pathology | | | | | | Maida Landry, | | | | | | M.DBlanca/PathologistT: | | | | | | 2/rdl [...] are | | | | | | [id number] | | | | | | us, [...] | + + + + + | [facility] | [address] | [place] [address] | | | PATHOLOGY | [address] [...] + | Diagnosis | + + | Sinusitis - Primary Unspecified sinusitis (chronic) | + + documented in this encounter Administered Medications + +--------+ +---------+------+------+ | Medication Order | MAR | Action | Dose | Rate | Site | | | Action | Date | | | | + +--------+ +---------+------+------+ | HYDROcodone-acetaminophen (aka | Given | 10/14/19 [...] | | | | | + +--------+ +---------+------+------+ +---+---+ | | | +---+---+ + +---------+ + + +---+ | lactated ringers IV 10 mL/hr, | New Bag | 10/14/19 | 10 mL/hr | 10 mL/hr | | | intravenous, PROCEDURE | | 12 9:40 | | | | | CONTINUOUS, Starting Fri10/14/11 | | AM PDT | | | | | at 0945, Until Fri10/14/11 at 2127 | | | | | | + [...] | | | | Until Fri10/14/11 at 2127, IV | | | | | | | start | | | | | | + +-------+ +--------+---+---+ +---+---+ | | | +---+---+ + +-------+ + +---+---+ | oxymetazoline (aka AFRIN) 0.05 | Given | 10/14/19 | 2 sprays | | | | % nasal spray 2 Cassel 2 spray, | | 12 10:45 | [...] | | | + +---+ | oxymetazoline (austin BUTLER) 0.05 | | | % nasal spray 1 dose, Starting | | | 10/14/11 at 0941, Until Mon | | | 10/14/11 at 0943 | | + +---+ | | | + +---+ documented in this encounter
--- OUTSIDE RECORDS SUMMARY | ~2019-12-11 | XMS | Encounter Summary ---
Demographics + + + | Address | [address] | | | [place] [address] | + + + | Home Phone | | + + + | Preferred Language | Unknown | + + + | Marital Status | Single | + + + | Jain Affiliation | Unknown | + + + | Race | White | + + + | Ethnic Group | Not or | + + + Author + + + | Author | [facility] | | | and [place] | + + + | Organization | [facility] | | | [...] Team Providers + +------+ + | Care Washing Machine Operator Name | Role | Phone | + +------+ + | David Arias MD | PCP | | + +------+ + Encounter Details +--------+ + + + + | Date | Type | Department | Care Team | Description | +--------+ + + + + | 07/09/ | Abstract | [facility] | Pooja Owens, | | | 2013 | | CARDIOLOGY [address] | MD [address] | | | | | [place], | [place], | | | | | [place] [address] | [place] [address] | | | | | [phone] | [phone] | | | | | | | [...] | EXTERNAL LAB: CBC | Routin | 05/19/2013 | | Results for this | | | e | 4:10 PM | | procedure are in the | | | | PST | | results section. | + +--------+ + + + | EXTERNAL LAB: EGFR | Routin | 05/19/2013 | | Results for this | | | e | 4:10 PM | | procedure are in the | | | | PST | | results section. | + +--------+ + + + | EXTERNAL LAB: | Routin | 05/19/2013 | | Results for this | | CREATININE | e | 4:10 PM | | procedure are in the | | | | PST | | results section. | + +--------+ + + + | CBC WITH | Routin | 05/19/2013 | | Results for this | | DIFFERENTIAL | e | | | procedure are in the | | | | | | results section. | + +--------+ + + + | BASIC METABOLIC | Routin | 05/19/2013 | | Results for this | | PANEL | e | | | procedure are in the | | | | | | results section. | + +--------+ + + + documented in this encounter Results External Lab: CBC (05/19/2013 4:10 PM PST) + + + + + + | Component | Value | Ref Range | Performed | Pathologist | | | | | At | Signature | + + + + + + | WBC, | 19.9 (A) | 4.5 - 11 | EXTERNAL | | | External | | | LAB | | + + + + + + | HGB, | 10.8 (A) | 12 - 16 | EXTERNAL | | | External | | | LAB | | + + + + + + | HCT, | 31.2 (A) | 35 - 45 | EXTERNAL | | | External | | | LAB | | + + + + + + | PLT, | 284 | 140 - 440 | EXTERNAL | | | External | | | LAB | | + + + + + + + + | Resulting Agency Comment | + + | [facility] | + + + +---------+ + + | Performing | Address | City/State/Zipcode | Phone Number | | Organization | | | | + +---------+ + + | EXTERNAL LAB | | | | + +---------+ + + External Lab: eGFR (05/19/2013 4:10 PM PST) + +-------+ + + + | Component | Value | Ref Range | Performed | Pathologist | | | | | At | Signature | + +-------+ + + + | eGFR, | >60 | 60 - 99,999 | EXTERNAL | | | External | | | LAB | | + +-------+ + + + | eGFR, | | | EXTERNAL | | | | | | LAB | | | [place], | | | | | | External | | | | | + +-------+ + + + + + | Specimen | + + | Blood specimen | | (specimen) | + + + + | Resulting Agency Comment | + + | [facility] | + + + +---------+ + + | Performing | Address | City/State/Zipcode | Phone Number | | Organization | | | | + +---------+ + + | EXTERNAL LAB | | | | + +---------+ + + External Lab: Creatinine (05/19/2013 4:10 PM PST) + +-------+ + + + | Component | Value | Ref Range | Performed | Pathologist | | | | | At | Signature | + +-------+ + + + | Creatinine, | 0.50 | 0.5 - 1.5 | EXTERNAL | | | External | | | LAB | | + +-------+ + + + + + | Specimen | + + | Blood specimen | | (specimen) | + + + + | Resulting Agency Comment | + + | [facility] | + + + +---------+ + + | Performing | Address | City/State/Zipcode | Phone Number | | Organization | | | | + +---------+ + + | EXTERNAL LAB | | | | + +---------+ + + Basic Metabolic Panel (05/19/2013) + +---------+ + + + | Component | Value | Ref Range | Performed | Pathologist | | | | | At | Signature | + +---------+ + + + | Na | 137 | mmol/L | [facility] | | | | | | [facility] | | | | | | [facility] | | | | | | [facility] - | | | | | | LABORATORY | | + +---------+ + + + | K | 4.0 | mmol/L | [facility] | | | | | | [facility] | | | | | | [facility] | | | | | | [facility] - | | | | | | LABORATORY | | + +---------+ + + + | Cl | 107 | mmol/L | [facility] | | | | | | [facility] | | | | | | [facility] | | | | | | [facility] - | | | | | | LABORATORY | | + +---------+ + + + | CO2 | 23 | mmol/L | [facility] | | | | | | [facility] | | | | | | [facility] | | | | | | [facility] - | | | | | | LABORATORY | | + +---------+ + + + | Anion Gap | 11 | mmol/L | [facility] | | | | | | [facility] | | | | | | [facility] | | | | | | [facility] - | | | | | | LABORATORY | | + +---------+ + + + | Glucose | 149 (A) | 70 - 100 mg/dL | [facility] | | | | | | [facility] | | | | | | [facility] | | | | | | [facility] - | | | | | | LABORATORY | | + +---------+ + + + | Calcium | 8.5 | mg/dL | [facility] | | | | | | [facility] | | | | | | [facility] | | | | | | [facility] - | | | | | | LABORATORY | | + +---------+ + + + | BUN | 8 | mg/dL | [facility] | | | | | | [facility] | | | | | | [facility] | | | | | | [facility] - | | | | | | LABORATORY | | + +---------+ + + + | BUN/Creatin | 16.0 | | [facility] | | | ine Ratio | | | [facility] | | [...] | + + + + + | [facility] | [address] | [place] | | | [facility] | | [address], [facility] | | | - LABORATORY | | | | + + + + + CBC with Differential (05/19/2013) + + + + + + | Component | Value | Ref Range | Performed | Pathologist | | | | | At | Signature | + + + + + + | RBC | 3.41 (A) | 3.80 - 5.10 | | | | | | 10*6/uL | | | + + + + + + | MCV | 91.7 | fL | | | + + + + + + | RDW-CV | 12.7 | % | | | + + + + + + | MCH | 32.0 | pg | | | + + + + + + | MCHC | 35.0 | % | | | + + + + + + | % Segmented | 72.0 | % | | | | | | | | | | Neutrophils | | | | | + + + + + + | % | 13.0 (A) | 24.0 - 44.0 % | | | | Lymphocytes | | | | | + + + + + + | % Monocytes | 5.0 | % | | | + + + + + + | % | 0.0 | % | | | | Eosinophils | | | | | + + + + + + | % Basophils | 0.0 | % | | | + + + + + + + + | Specimen | + + | Blood specimen | | (specimen) | + + documented in this encounter Visit Diagnoses Not on filedocumented in this encounter"
--- OUTSIDE RECORDS SUMMARY | ~2019-12-11 | XMS | Encounter Summary ---
Demographics + + + | Address | [address] | | | [place] [address] | + + + | Home Phone [...] Providers + +------+ + | Care Land Examiner Name | Role | Phone | + +------+ + | David Arias MD | PCP | | + +------+ + Reason for Visit + + + | Reason | Comments | + + + | Follow-up | 3 month | + + + | Congestive Heart | | | Failure | | + + + | Hypertension | | + + + | COPD | | + + + | Chest Heaviness | | + + + Encounter Details +--------+---------+ + + + | Date | Type | Department | Care Team | Description | +--------+---------+ + + + | 11/19/ | Office | [facility] | Pooja Owens, | Palpitations | | 2013 | Visit | CARDIOLOGY [address] | [address] | (Primary Dx); | | | | [place], | [place], | Dizziness; | | | | [place] [address] | [place] [address] | Lightheadedness | | | | [phone] | [phone] | | | | | | | | +--------+---------+ + [...] + + + | Blood Pressure | 110/60 | 11/19/2013 10:22 AM | right arm | | | | PDT | | + + + + + | Pulse | 62 | 11/19/2013 10:22 AM | regular | | | | PDT | | + + + + + | Temperature | - | - | | + + + + + | Respiratory Rate | 18 | 11/19/2013 10:22 AM | | | | | PDT | | + + + + + | Oxygen Saturation | - | - | | + + + + + | Inhaled Oxygen | - | - | | | Concentration | | | | + + + + + | Weight | 65.8 kg (145 lb 1.6 | 11/19/2013 10:22 AM | | | | oz) | PDT | | + + + + + | Height | 162.6 cm (5' 4") | 11/19/2013 10:22 AM | | | | | PDT | | + + + + + | Body Mass Index | 24.91 | 11/19/2013 10:22 AM | | | | | PDT | | + + + + + documented in this encounter Progress Notes Pooja Owens MD - 11/19/2013 10:29 AM PDTFormatting of this note might be [...] Tachycardia Chest discomfort CHF (congestive heart failure) ([facility]) CURRENT MEDICATIONS Outpatient Encounter Prescriptions as of [...] po unding or palpitations. Dr. Call, her hand mounter stating that the symptom could be fro [...] She is in a class II of [employer] functional class. There are no si gns and symptoms of overt congestive heart failure. There is no fluid retention on physica l examination. 2. Chest pressure and shortness of breath on exertion: A. She had a left heart catheterization done at [facility] in 2008. She w as told [...] refuse. Electronically signed by: Pooja Owens MD [facility] 11/19/2013 10:30 Portions of this chart may have been created with [employer] voice recognition software. Occasi onal wrong-word or sound-alike substitutions may have occurred due to the inherent navas itations of voice recognition software. Please read the chart carefully and recognize, using context, where these substitutions have occurred. documented in this encounter Miscellaneous Notes Addendum Note - Heather Olivier RN - 11/22/2013 3:50 PM PDT Addended by: HEATHER OLIVIER on: 11/22/2013 15:50 Modules accepted: Orders documented in this en counter Plan of Treatment Not on filedocumented as of this encounter Results EP LOOP RECORDER (11/24/2013 3:52 PM PDT) + + + | Narrative | Performed At | + + + | Pooja Owens MD 11/24/2013 15:52 LOOP RECORDER | [facility] | | IMPLANTATION PATIENT NAME: Priscila Henningp : | [facility] | | 1940: AGE: 73 y.o. MEDICAL RECORD NUMBER: | [facility] | | [id number] PRIMARY CARE: David Arias MD SURGEON: | - IMAGING | | Pooja Owens MD DATE OF PROCEDURE: 11/24/2013 | | | PROCEDURES PERFORMED: 1. Implantation of a Medtronic loop recorder. | | | INDICATIONS: 1. atrial fibrillation/arrhythmia | | | DESCRIPTION OF PROCEDURE: After informed consent was obtained, the | | | patient was taken to the operating room. 1 g of cefazolin was | | | given intravenously. Patient was hooked up to EKG, pulse oximetry | | | and blood pressure monitoring. All parameters were kept stable | | | during procedure. The Medtronic device inside sales representative was present | | | in the operating room. Patient received 1 mg of Versed and 50 mcg | | | of fentanyl intravenously for conscious sedation during the | | | procedure. The left pectoral area was prepped and draped in the | | | standard fashion. Under sterile technique, and 30 mL of 1% local | | | Xylocaine without epinephrine injection for local anesthesia, the | | | incision was made. Incision was extended all the way down and the | | | pocket was formed. The Medtronic loop recorder was inserted in the | | | Diagonal axis which was predetermined to provide the best vector. | | | Recorder was anchored down using 2, 2-0 silks.The pocket was | | | irrigated and dried. Hemostasis was obtained. A two layer | | | running closure was performed with a 2-0 Vicryl for prepectoral | | | fascia and subcutaneous fatty tissue. Continuous subcuticular | | | suturing was performed with a 4-0 Vicryl. The skin sealed with a | | | layer of Dermabond. Estimated blood loss was 5 mL. | | | COMPLICATIONS: There were no complications. The patient | | | tolerated the procedure well. DEVICE INFORMATION: A. | | | Medtronic loop recorder, model #: 9529, serial #: [id number]. | | | DEVICE SETTINGS: VT: 340 ms, 60 beats. Fast VT: 260 ms, and | | | 30/40 beats. Bradycardia: 1500 ms, a 4 beats. Asystole: 3 | | | seconds. Pooja Owens MD 11/24/2013 15:50 | | + + + + + | Procedure Note | + + | Pooja Owens MD - 11/24/2013 3:50 PM PDT Formatting of this note might be | | different from the original.LOOP RECORDER IMPLANTATIONPATIENT NAME: Priscila Brasher | | : 1940: AGE: 73 y.o. PRIMARY | | CARE:JENNIFER McmanusURGEON:Pooja Owens MD DATE OF PROCEDURE: | | 11/24/2013 PROCEDURES PERFORMED:1. Implantation of a Medtronic loop | | recorder.INDICATIONS: 1. atrial fibrillation/arrhythmia DESCRIPTION OF | | PROCEDURE:After informed consent was obtained, the patient was taken to the operating | | room. 1 g of cefazolin was given intravenously. Patient was hooked up to EKG, pulse | | oximetry and blood pressure monitoring. All parameters were kept stable during | | procedure. The Medtronic device inside sales representative was present in the operating room. | | Patient received 1 mg of Versed and 50 mcg of fentanyl intravenously for conscious | | sedation during the procedure. The left pectoral area was prepped and draped in the | | standard fashion. Under sterile technique, and 30 mL of 1% local Xylocaine without | | epinephrine injection for local anesthesia, the incision was made. Incision was extended | | all the way down and the pocket was formed. The Medtronic loop recorder was inserted | | in the Diagonal axis which was predetermined to provide the best vector. Recorder was | | anchored down using 2, 2-0 silks.The pocket was irrigated and dried. Hemostasis was | | obtained. A two layer running closure was performed with a 2-0 Vicryl for prepectoral | | fascia and subcutaneous fatty tissue. Continuous subcuticular suturing was performed | | with a 4-0 Vicryl. The skin sealed with a layer of Dermabond. Estimated blood loss was | | 5 mL.COMPLICATIONS: There were no complications. The patient tolerated the procedure | | well. DEVICE INFORMATION: A. [employer] loop recorder, model #: 9529, serial #: [id number] | | [id number].DEVICE SETTINGS: VT: 340 ms, 60 beats.Fast VT: 260 ms, and 30/40 | | beats.Bradycardia: 1500 ms, a 4 beats.Asystole: 3 seconds.Pooja Owens | | 11/24/2013 15:50 | | | |After informed consent was obtained, the patient was taken to the operating room. 1 g of c efazolin was given intravenously. Patient was hooked up to EKG, pulse oximetry and blood pr essure monitoring. All | |parameters were kept stable during procedure. The Medtronic device inside sales representative was pres ent in the operating room. Patient received 1 mg of Versed and 50 mcg of fentanyl intraveno usly for conscious sedation | |during the procedure. The left pectoral area was prepped and draped in the standard fashio n. Under sterile technique, and 30 mL of 1% local Xylocaine without epinephrine injection f or local anesthesia, the incision | |was made. Incision was extended all the way down and the pocket was formed. The Medtronic loop recorder was inserted in | |the Diagonal axis which was predetermined to provide the best vector. Recorder was anchore d down using 2, 2-0 silks.The pocket was irrigated and dried. Hemostasis was obtained. A t wo layer running closure was | |performed with a 2-0 Vicryl for prepectoral fascia and subcutaneous fatty tissue. Continuo us subcuticular suturing was performed with a 4-0 Vicryl. The skin sealed with a layer of D ermabond. | | | |Estimated blood loss was 5 mL. | | | |COMPLICATIONS: There were no complications. The patient tolerated the procedure well. | | | |DEVICE INFORMATION: | |A. [employer] loop recorder, model #: 9529, serial #: [id number]. | | | |DEVICE SETTINGS: | |VT: 340 ms, 60 beats. | |Fast VT: 260 ms, and 30/40 beats. | |Bradycardia: 1500 ms, a 4 beats. | |Asystole: 3 seconds. | | | | | |Pooja Owens MD | |11/24/2013 15:50 | + + + + + + + | Performing | Address | City/State/Zipcode | Phone Number | | Organization | | | | + + + + + | [facility] | [address] | [place] | [phone] | | [facility] | | [address] | | | - IMAGING | | | | + + + + + documented in this encounter Visit Diagnoses + + | Diagnosis | + + | Palpitations - Primary | + + | Dizziness Dizziness and giddiness | + + | Lightheadedness Dizziness and giddiness | + + documented in this encounter
--- OUTSIDE RECORDS SUMMARY | ~2019-12-11 | XMS | Encounter Summary ---
Demographics + + + | Address | [address] | | | [place] [address] | + + + | Home Phone [...] Author + + + | Author | [facility] | | | and [place] | + + + | Organization | [facility] | | | [...] Team Providers + +------+ + | Care Director External Communications Name | Role | Phone | + +------+ + | David Arias MD | PCP | | + +------+ + Reason for Visit + +--------+ + | Reason | Onset | Comments | | | Date | | + +--------+ + | Recall For Services | 12/10/ | | | (DMST) | 2012 | | + +--------+ + Encounter Details +--------+ + + + + | Date | Type | Department | Care Team | Description | +--------+ + + + + | 12/10/ | Telephone | [facility] | Pooja Owens, | Recall For Services | | 2012 | | CARDIOLOGY [address] | MD [address] | (DMST) | | | | [place], | [place], | | | | | [place] [address] | [place] [address] | | | | | [phone] | [phone] | | | | | | | [...] this encounter Miscellaneous Notes Telephone Encounter - Jami Jeffries - 12/10/2012 9:21 AM PDTPatient was last seen on . She is seeing Dr Arias for primary care and does not feel she needs to see a car diologist documented in t his encounter Plan of Treatment Not on filedocumented as of this encounter Visit Diagnoses Not on filedocumented in this encounter"
--- OUTSIDE RECORDS SUMMARY | ~2019-12-11 | XMS | Encounter Summary ---
Demographics + + + | Address | [address] | | | [place] [address] | + + + | Home Phone [...] Author + + + | Author | [facility] | | | and [place] | + + + | Organization | [facility] | | | [...] Team Providers + +------+ + | Care Chilling Hood Operator Name | Role | Phone | + +------+ + | aDvid Arias MD | PCP | | + +------+ + Encounter Details +--------+ + + + + | Date | Type | Department | Care Team | Description | +--------+ + + + + | 03/17/ | Orders Only | [facility] | Leana Hoover | Chest pain at rest; | | 2018 | | [facility] | [place], [place] | Shortness of breath | | | | [address] [place] | | | | | | [place], [place] | | | | | | [address] | | | | | | [phone] | | | +--------+ + + + [...] | B TYPE NATRIURETIC | Routin | 03/17/2019 | Chest pain at rest | Results for this | | PEPTIDE | e | 12:17 PM | Shortness of | procedure are in the | | | | PST | breath | results section. | + +--------+ + + + | BASIC METABOLIC | Routin | 03/17/2019 | Chest pain at rest | Results for this | | PANEL | e | 12:11 PM | Shortness of | procedure are in the | | | | PST | breath | results section. | + +--------+ + + + documented in this encounter Results B Type Natriuretic Peptide (03/17/2019 12:17 PM PST) + + + + + + | Component | Value | Ref Range | Performed | Pathologist | | | | | At | Signature | + + + + + + | BNP | 93Comment: New method in | <100 pg/mL | [facility] | | | | use as of June 03 | | [facility] | | | | 2018. Check reference | | MEDICAL | | | | range for changes.Some | | CENTER - | | | | analytes show | | LABORATORY | | | | significant variation | | | | | | from the previous | | | | | | method.It may be | | | | | | necessary to set a new | | | | | | baseline for this | | | | | | analyte. | | | | + + + + + + + + | Specimen | + + | Blood | + + + + + + + | Performing | Address | City/State/Zipcode | Phone Number | | Organization | | | | + + + + + | [facility] | [address] | [place], [place] | [phone] | | [facility] | | [address] | | | - LABORATORY | | | | + + + + + Basic Metabolic Panel (03/17/2019 12:11 PM PST) + + + + + + | Component | Value | Ref Range | Performed | Pathologist | | | | | At | Signature | + + + + + + | Na | 140 | 136 - 145 | [facility] | | | | | mmol/L | [facility] | | | | | | [facility] | | | | | | CENTER - | | | | | | LABORATORY | | + + + + + + | K | 3.5 | 3.4 - 5.1 | [facility] | | | | | mmol/L | [facility] | | | | | | [facility] | | | | | | C[facility] - | | | | | | LABORATORY | | + + + + + + | Cl | 103 | 98 - 107 mmol/L | [facility] | | | | | | [facility] | | | | | | [facility] | | | | | | C[facility] - | | | | | | LABORATORY | | + + + + + + | CO2 | 27 | 20 - 31 mmol/L | [facility] | | | | | | [facility] | | | | | | [facility] | | | | | | [facility] - | | | | | | LABORATORY | | + + + + + + | Anion Gap | 10 | 3 - 16 mmol/L | [facility] | | | | | | [facility] | | | | | | [facility] | | | | | | [facility] - | | | | | | LABORATORY | | + + + + + + | Glucose | 111 (H) | 60 - 106 mg/dL | [facility] | | | | | | [facility] | | | | | | MEDICAL | | | | | | CENTER - | | | | | | LABORATORY | | + + + + + + | BUN | 18 | 9 - 23 mg/dL | [facility] | | | | | | [facility] | | | | | | [facility] | | | | | | CENTER - | | | | | | LABORATORY | | + + + + + + | Creatinine | 0.75 | 0.55 - 1.02 | [facility] | | | | | mg/dL | [facility] | | | | | | MEDICAL | | | | | | CENTER - | | | | | | LABORATORY | | + + + + + + | eGFR, | >60Comment: GLOMERULAR | >=60 | [facility] | | | non- | FILTRATION | mL/min/1.73m2 | [facility] | | | [place] | RATE,ESTIMATED | | MEDICAL | | | | mL/min/1.77j4Jbpx than | | CENTER - | | | | 60 Chronic kidney | | LABORATORY | | | | disease,if found over a | | | | | | 3-month period.Less than | | | | | | 15 Kidney failureFor | | | | | | | | | | | | Americans,multiply the | | | | | | calculated GFR by 1.21. | | | | | | | | | | + + + + + + | Calcium | 9.6 | 8.7 - 10.4 | [facility] | | | | | mg/dL | [facility] | | | | | | MEDICAL | | | | | | CENTER - | | | | | | LABORATORY | | + + + + + + | BUN/Creatin | 24.0 | | [facility] | | | ine Ratio | | | [facility] | | [...] ST[facility] | [address] | [place], [place] | [phone] | | [facility] | | [address] | | | - LABORATORY | | | | + + + + + documented in this encounter Visit Diagnoses + + | Diagnosis | + + | Chest pain at rest Chest pain, unspecified | + + | Shortness of breath | + + documented in this encounter"
--- OUTSIDE RECORDS SUMMARY | ~2019-12-11 | XMS | Encounter Summary ---
Demographics + + + | Address | [address] | | | [place] [address] | + + + | Home Phone | | + + + | Preferred Language | Unknown | + + + | Marital Status | Single | + + + | [employer] Affiliation | Unknown | + + + [...] Team Providers + +------+ + | Care Boxcar Weigher Name | Role | Phone | + +------+ + | Krystyna Luciano MD | PCP | | + +------+ + Encounter Details +--------+ + + + + | Date | Type | Department | Care Team | Description | +--------+ + + + + | 12/24/ | Hospital | [facility] | Denis Osorio | Chest pain; S/P | | 2013 - | Encounter | [facility] | Brandyn Starks MD [address] | coronary artery | | | | CLINICAL DECISION | [address] | stent placement | | 12/25/ | | [address] | [place] [address] | | | 2013 | | [place], [place] | [phone] | | | | | [address] | | | | | | [phone] | | | +--------+ + + + [...] + + documented as of this encounter Discharge Summaries Afshin Fitzgerald MD - 12/25/2013 1:12 PM PDTFormatting of this note might be differ ent from the original. Discharge Summaries by Afshin Fitzgerald MD at 12/25/13 1312 Author: Afshin Fitzgerald MD Service: Hospitalist Author Type: Physician Filed: 12/26/13 1300 Date of Service: 12/25/13 1312 Status: Signed Steved[place] Dock: Afshin Fitzgerald MD (Physician) Related Notes: Original Note by Afshin Fitzgerald MD (Physician) filed at 12/25/13 1551 [facility] Service: Hospitalist Discharge Summary Date of Admission: 12/24/2013 Date of Discharge: Discharge Provider: Afshin Fitzgerald MD Treatment Team: Admitting Provider: Osorio Barrios MD Discharge Diagnoses: Principal Problem: Chest pain with high risk of acute coronary syndrome Active Problems: Dyslipidemia COPD (chronic obstructive pulmonary disease) Obstructive sleep apnea (adult) (pediatric) OA (osteoarthritis) S/P angioplasty with stent Resolved Problems: * No resolved hospital problems. * BRIEF HISTORY OF PRESENTATION: Priscila Brasher is a 73 y.o. female who Presented to the ED with chief complaint of zachery st flutter and pain. She had a recent cardiac catheterization with 2 drug-eluting stents ana ann in the right coronary artery. The patient was worried that she may be having a recurring event, so she came to the ED. EKG was unremarkable. Three sets of troponin were negative. S he was chest pain free this morning. When I questioned her if she ever took nitroglycerin at home, she said that the chest pain was not severe enough to take nitroglycerin. Anyway, at the current moment she is chest pain free. I do not think this represents an ACS. We will di scharge her home in stable condition. Prescriptions prior to admission Medication Sig Dispense Refill amitriptyline (ELAVIL) 25 MG tablet Take 25 mg by mouth nightly. aspirin EC 325 MG EC tablet Take 1 tablet by mouth daily with breakfast. 30 tablet 11 atorvastatin (LIPITOR) 80 MG tablet Take 1 tablet by mouth daily. 30 tablet 3 clopidogrel (PLAVIX) 75 MG tablet Take 1 tablet by mouth daily. 90 tablet 3 cyclobenzaprine (FLEXERIL) 5 MG tablet Take 5 mg by mouth 3 (three) times daily as need ed for Muscle spasms. metoclopramide (REGLAN) 10 MG tablet Take 10 mg by mouth 4 (four) times daily before me als and nightly. metoprolol (LOPRESSOR) 25 MG tablet Take 25 mg by mouth every evening. Takes 1.5 tabs a t bedtime misoprostol (CYTOTEC) 200 MCG tablet Take 200 mcg by mouth 2 (two) times daily. nitroGLYCERIN (NITROSTAT) 0.[address] 0.4 mg under the tongue every 5 (five) minutes as needed for Chest pain. sumatriptan (IMITREX) 100 MG tablet Take 100 mg by mouth as needed for Migraine. topiramate (TOPAMAX) 100 MG tablet Take 100 mg by mouth 2 (two) times daily. DISCHARGE EXAM Vital Signs: BP 101/62 | Pulse 64 | Temp(Src) 98.2 F (36.8 C) (Oral) | Resp 16 | Ht 1.626 m (5' 4.02 ") | Wt 63.504 kg (140 lb) | BMI 24.02 kg/m2 | SpO2 95% | ? No Physical Exam General Appearance: Alert, cooperative, no distress, appears stated age Lungs: Clear to auscultation bilaterally, respirations unlabored Heart: Regular rate and rhythm, S1 and S2 normal, no murmur, rub or gallop Abdomen: Soft, non-tender, bowel sounds active all four quadrants, no masses, no organomegaly Extremities: Extremities normal, atraumatic, no cyanosis or edema Pulses: 2+ and symmetric all extremities Neurologic: CNII-XII intact, normal strength, sensation and reflexes throughout DATA Recent Labs Lab 12/25/13 032 WBC 7.6 HGB 12.2 HCT 37.9 PLT 316 NEUTOPHILPCT 40.4 MONOPCT 11.5 Recent Labs Lab 12/25/13 0327 NA 138 K 3.4* CL 108 CO2 23 BUN 16 CREATININE 0.57 Phosphorus: Lab Results Component Value Date PHOS 3.5 12/25/2013 No components found with this basename: LABALBU, Recent Labs Lab 12/25/13 0327 MG 1.9 No results found for this basename: AMYLASE, in the last 168 hours No results found for this basename: PHART, PO2ART, KII8ADP, F0OHJPFL, BEART, in the last 1 68 hours No results found for this basename: APTT, INR, PTT, in the last 168 hours Recent Labs Lab 12/24/132121 FREET4 1.1 Recent Labs Lab 12/25/13 0327 12/24/132121 CKTOTAL 36 41 TROPONINI 0.06 0.067 CKMBINDEX 2.5 2.0 Radiology No results found. Disposition: Home Condition: Stable Code Status: Full Code No discharge procedures on file. Follow up: Krystyna Luciano MD Medication List CONTINUE taking these medications amitriptyline 25 MG tablet Refills: 0 Commonly known as: ELAVIL aspirin EC 325 MG EC tablet QTY: 30 tablet Refills: 11 Take 1 tablet by mouth daily with breakfast. atorvastatin 80 MG tablet QTY: 30 tablet Refills: 3 Commonly known as: LIPITOR Take 1 tablet by mouth daily. clopidogrel 75 MG tablet QTY: 90 tablet Refills: 3 Commonly known as: PLAVIX Take 1 tablet by mouth daily. cyclobenzaprine 5 MG tablet Refills: 0 Commonly known as: FLEXERIL metoclopramide 10 MG tablet Refills: 0 Commonly known as: REGLAN metoprolol 25 MG tablet Refills: 0 Commonly known as: LOPRESSOR misoprostol 200 MCG tablet Refills: 0 Commonly known as: CYTOTEC nitroGLYCERIN 0.4 MG SL tablet Refills: 0 Commonly known as: NITROSTAT sumatriptan 100 MG tablet Refills: 0 Commonly known as: IMITREX topiramate 100 MG tablet Refills: 0 Commonly known as: TOPAMAX STOP taking these medications diclofenac 75 MG EC tablet Commonly known as: VOLTAREN Discharge took 35 minutes, to include final examination, discussion of admission, and prepa ration of prescriptions, instructions for on-going care, follow-up and documentation of disc harge summary. Afshin Fitzgerald MD 12/25/2013 1:13 PM documented in this encounter Medications at Time [...] 0 | | | | (VITAMIN D3) 33898 | mouth Once a week. | | [...] Progress Notes Conversion Transaction, Provider Unknown - 12/25/2013 1:46 PM PDTFormatting of this note m ight be different from the original. Nurse Progress Note by Hina Dominguez RN at 12/25/131345 Author: Hina Dominguez RN Service: (none) Author Type: Registered Nurse Filed: 12/25/131347 Date of Service: 12/25/131345 Status: Signed [place]: Hina Dominguez RN (Registered Nurse) Pt given written and verbal discharge instructions, she verbalized understanding and denies any questions or concerns at this time. She left [facility] ambulatory accompanied by friend in private vehicle to home. onver jill Transaction, Provider Unknown - 12/24/2013 6:34 PM PDT Progress Notes by Mary Jane Reynolds RPH at 12/24/131833 Author: Mary Jane Reynolds RPH Service: (none) Author Type: Pharmacist Filed: 12/24/131833 Date of Service: 12/24/131833 Status: Signed [place]: Mary Jane Reynolds RPH (Pharmacist) Clinical Pharmacy Note: Renal Monitoring Priscila Brasher 73 y.o. female Ht Readings from Last 1 Encounters: 12/24/13 1.626 m (5' 4") Wt Readings from Last 1 Encounters: 12/24/13 63.504 kg (140 lb) Creatinine clearance cannot be calculated (Patient's most recent sCr result is older than t he maximum 3 days allowed.) Pharmacy dosing for renal function per Dr. Barrios. Currently, there are no medications needing to be adjusted. Pharmacy will continue to monit or for changes in medication orders and in renal function and adjust accordingly. Mary Jane Reynolds RPh 12/24/2013 6:33 PM docume nted in this encounter H&P Notes Osorio Barrios MD - 12/24/2013 4:19 PM PDTFormatting of this note might be diff erent from the original. H&P by Osorio Barrios MD at 12/24/13 1619 Author: Osorio Barrios MD Service: Hospitalist Author Type: Physician Filed: 12/24/13 1728 Date of Service: 12/24/13 1619 Status: Signed Ste[place] Dock: Osorio Barrios MD (Physician) [facility] Service: Hospitlist Admission History & Physical Date of Admission: 12/24/2013 Requesting Physician: Dr. Duarte, Emergency Department Reason for Admission: Chest pain with high risk for ACS History Obtained From: patient, chart review, Quality of history: good CHIEF COMPLAINT: Chest pain and palpitations today HISTORY OF PRESENT ILLNESS The patient is a 73 y.o. female with significant past medical history of History of hyperte nsion, dyslipidemia, osteoarthritis, lymphoma status post chemotherapy, COPD, and sleep apne a on nocturnal oxygen. He was recently admitted to this hospital from 12/15/2013-12/2013 was diagnosed to have an STEMI and the patient underwent left heart catheterization for high ri sk non-ST PA with angioplasty with 2 non-overlapping drug-eluting stents. Right AV groove Pr omus Premier 2.25 x 12 mm, and the distal RCA Promus Premier 2.5 x 16 mm. Was discharged leticia e and according the patient she continues take her Lipitor her Plavix and her aspirin. According the patient's is a day of discharge she has had brief episodes about 3 minutes of chest pressure that appears at rest or on activity that disappears without her having to ta ke a nitroglycerin. On the day of admission while drinking coffee and friend started to hav e substernal chest pressure not as bad as when she had an STEMI, and she felt her heart palp itating, she did not have any shortness of breath this lasted longer than 15 minutes present ed herself to [facility] ER where her 1st set of heart enzymes were normal, EKG did not s how any acute ST-T wave changes or arrhythmias but she continued to have heart palpitations, her chest pain improved a little bit. Dr. Mane information director for was called from [facility] and he recommended having the patient brought TO [facility] to be observed with serial cardiac enzymes and if the patient's cardiac enzymes are negative the patient can be dischar ged tomorrow. Subsequently hospitalist service was called as the patient with MS and the patient she was denying any shortness of breath and she denied any, jaw or arm pain, she stated her chest he aviness was improved. She remained complaint was she was feeling very tired, she wakes up i n the morning and by the middle of the day she feels tired. Patient decided TSH done which is within normal range on 12/16/2010 however T4 was not done. REVIEW OF SYSTEMS Review of Systems Constitutional: Positive for activity change and fatigue. Respiratory: Positive for chest tightness. Cardiovascular: Positive for chest pain and palpitations. 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 Sleep apnea NSTEMI (non-ST elevated myocardial infarction) 12/15/2013 Past Surgical History Procedure Laterality Date Tonsillectomy Hysterectomy Appendectomy Splenectomy Cholecystectomy Breast lumpectomy left breast Hernia repair Eye surgery Cataract extraction Colonoscopy Unlisted procedure arthroscopy rashmi hips replaced, right lower leg broken and fixed Immunizations: Influenza: Indicated for current flu vaccination season Pneumoccocal: Up-to-date; approximate date: less than 5 years since las immuni zation Allergies Allergen Reactions Penicillins Angioedema Sulfa Antibiotics Rash Codeine Nausea and Vomiting Tetanus Toxoid GI Distress (Not in a hospital admission) History reviewed. No pertinent family history. History Social History Marital Status: Spouse Name: N/A Number of Children: N/A Years of Education: N/A Occupational History Not on file. Social History Main Topics Smoking status: Former Smoker Smokeless tobacco: Not on file Alcohol Use: No Drug Use: No Sexually Active: No Other Topics Concern Not on file Social History Narrative PHYSICAL EXAM Vital Signs: BP 127/71 | Pulse 77 | Temp(Src) 99 F (37.2 C) | Resp 19 | Ht 1.626 m (5' 4") | Wt 63.5 04 kg (140 lb) | BMI 24.02 kg/m2 | SpO2 98% Physical Exam Constitutional: She is oriented to person, place, and time. She appears well-developed and well-nourished. No distress. HENT: Head: Normocephalic and atraumatic. Right Ear: External ear normal. Left Ear: External ear normal. Nose: Nose normal. Mouth/Throat: Oropharynx is clear and moist. No oropharyngeal exudate. Eyes: Conjunctivae and EOM are normal. Pupils are equal, round, and reactive to light. Righ t eye exhibits no discharge. Left eye exhibits no discharge. No scleral icterus. Neck: Normal range of motion. Neck supple. No JVD present. No tracheal deviation present. N o thyromegaly present. Cardiovascular: Normal rate, regular rhythm, normal heart sounds and intact distal pulses. Exam reveals no gallop and no friction rub. No murmur heard. Pulmonary/Chest: Effort normal and breath sounds normal. No stridor. No respiratory distres s. She has no wheezes. She has no rales. She exhibits no tenderness. Abdominal: Soft. Bowel sounds are normal. She exhibits no distension and no mass. There is no tenderness. There is no rebound and no guarding. No hernia. Musculoskeletal: Normal range of motion. She exhibits no edema or tenderness. Lymphadenopathy: She has no cervical adenopathy. Neurological: She is alert and oriented to person, place, and time. She has normal reflexes . She displays normal reflexes. No cranial nerve deficit. She exhibits normal muscle tone. C oordination normal. Skin: Skin is warm and dry. No rash noted. She is not diaphoretic. No erythema. No pallor. Psychiatric: She has a normal mood and affect. Her behavior is normal. Judgment and thought content normal. Nursing note and vitals reviewed. DATA TSH: Lab Results Component Value Date TSH 2.09 12/16/2013 PROBLEM LIST Principal Problem: Chest pain with high risk of acute coronary syndrome Active Problems: S/P angioplasty with stent Dyslipidemia COPD (chronic obstructive pulmonary disease) Obstructive sleep apnea (adult) (pediatric) OA (osteoarthritis) ASSESSMENT & PLAN Patient Active Hospital Problem List: Chest pain with high risk of acute coronary syndrome (12/24/2013) Assessment: Acute increasing more than before. Plan: Observe in CDU, patient will be on telemetry continuously to monitor her palpitatio ns, however on telemetry here her heart rhythm has been in NSR. We will do serial cardiac e nzymes, if serial cardiac enzymes are negative patient may need additional IMdur and can be discharge as per cardiology recommendation. We will continue with her Plavix, Lipitor, Lopr essor, and aspirin. Heparin for DVT prophylaxis S/P angioplasty with stent (12/24/2013) Assessment: Negative heart enzymes Plan: Continue to monitor Dyslipidemia (12/15/2013) Assessment: Chronic Plan: Continue with Lipitor COPD (chronic obstructive pulmonary disease) (12/15/2013) Assessment: not active Plan: continue to monitor Obstructive sleep apnea (adult) (pediatric) (12/15/2013) Assessment: Chronic Plan: O2 at nightNight OA (osteoarthritis) (12/15/2013) Assessment: Patient has been taking Voltaren orally as well as Flexeril, this may be impa cting on her chest pain although she does take Cytotec. Plan: Have stopped the Voltaren will give Voltaren gel, I added pepcid to her cytotec and reglan as cp cpuld be related to Voltaren oral intake I explained radiology and relatives verbalized understanding and agreement with plan of ca re and did not have any more questions for me after my interaction with them. More than 50 m inutes spent on admitting this patient face to face at bedside, taking history and physical examination, more than 65% of this spent on explaining plan of care to patient at bedside, rian medeiros review,formulating a plan and placing orders coordinating care with other providers we ll as Computerized [employer]arding [employer] Folding Machine Operator. Other recommendations for management of this patient will be dependent upon the patient's clinical course. Discharge plans when stable and improved in 24 to 48 hours. Disposition: Observe in CDU Dictation software, [employer], used which may contain error for similar sounding words even af ter review. Personal communication requested for any clarification. Code Status: Prior Full Code Primary Care Physician: KRYSTYNA Barrios MD 12/24/2013 documented in this encounter ED Notes Conversion Transaction, Provider Unknown - 12/24/2013 5:32 PM PDTFormatting of this note m ight be different from the original. ED Notes by Edel Ruiz RN at 12/24/13 173 Author: Edel Ruiz RN Service: (none) Author Type: Registered Nurse Filed: 12/24/13 174 Date of Service: 12/24/131731 Status: Signed [place]: Edel Ruiz RN (Registered Nurse) Patient given menu and instructions for placing order for meal. Edel Ruiz RN 12/24/131744 onver jill Transaction, Provider Unknown - 12/24/2013 3:35 PM PDT ED Notes by Fili Veronica RN at 12/24/131534 Author: Fili Veronica RN Service: (none) Author Type: Registered Nurse Filed: 12/24/13 153 Date of Service: 12/24/131534 Status: Signed [place]: Fili Veronica RN (Registered Nurse) Dr Duarte at bedside with pt. Fili Veronica RN 12/24/131534 wen Morejon DO - 12/24/2013 3:34 PM PDTFormatting of this note might be different f rom the original. ED Provider Notes by Owen Duarte DO at 12/24/13 1534 Author: Owen Duarte DO Service: (none) Author Type: Physician Filed: 12/24/13 9571 Date of Service: 12/24/13 4024 Status: Signed Ste[place] Dock: Owen Duarte DO (Physician) [facility] Department of Emergency Medicine 3:34 PM History of Present Illness Patient Identification Priscila Brasher is a 73 y.o. female. Patient information was obtained from patient. History/Exam limitations: none. Patient presented to the Emergency Department by: Ambulance Chief Complaint Chief Complaint Patient presents with Chest Pain per Report [facility]. Pt complaint of chest pressure starting at 090 0 this am. The patient presents to ED with complaints of chest pain. Onset of symptoms was 8:00 AM tod neha, with an improved course since that time. The patient describes the symptoms as chest antonio n. States the chest pain is currently resolved but that she continues to have chest heavines s. The patient also complains of palpitations, shortness of breath. Today pt went in to [facility], and was transferred here. States that the chest pain was similar to her chest pa in that she was having during her recent PA. Pt had a heart attack with 2 stents placed 9 days ago, states she was discharged from the ospital 1 week ago. Pt states she was told that if she had any pain or palpitations that she should go to the ED. Pt states her nursery worker is Dr. Cavazos. Pt has been taking Plavix, Aspirin, and Lipitor since discharge. Pt also has a hx of COPD, wears oxygen at night. Former smoker. No hx diabetes or hypertens ion. No family hx heart attack. 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 Authorizing Provider amitriptyline (ELAVIL) 25 MG tablet Take 25 mg by mouth nightly. Historical Provider aspirin EC 325 MG EC tablet Take 1 tablet by mouth daily with breakfast. 9/12/14 9/12/15 Bob Coughlin PA-C atorvastatin (LIPITOR) 80 MG tablet Take 1 tablet by mouth daily. 12/17/13 12/17/14 Cristal Coughlin PA-C clopidogrel (PLAVIX) 75 MG tablet Take 1 tablet by mouth daily. 12/17/13 12/17/14 Cristal sykes PA-C cyclobenzaprine (FLEXERIL) 5 MG tablet Take 5 mg by mouth 3 (three) times daily as needed f or Muscle spasms. Historical Provider diclofenac (VOLTAREN) 75 MG EC tablet Take 75 mg by mouth 2 (two) times daily. Historica l Provider metoclopramide (REGLAN) 10 MG tablet Take 10 mg by mouth 4 (four) times daily before meals and nightly. Historical Provider metoprolol (LOPRESSOR) 25 MG tablet Take 25 mg by mouth every evening. Takes 1.5 tabs at be dtime Historical Provider misoprostol (CYTOTEC) 200 MCG tablet Take 200 mcg by mouth 2 (two) times daily. Historic al Provider nitroGLYCERIN (NITROSTAT) 0.[address] 0.4 mg under the tongue every 5 (five) min utes as needed for Chest pain. Historical Provider sumatriptan (IMITREX) 100 MG tablet Take 100 mg by mouth as needed for Migraine. Histori lillian Provider topiramate (TOPAMAX) 100 MG tablet Take 100 mg by mouth 2 (two) times daily. Historical Provider Allergies Allergen Reactions Penicillins Angioedema Sulfa Antibiotics Rash Codeine Nausea and Vomiting Tetanus Toxoid GI Distress History Social History Marital Status: Spouse Name: N/A Number of Children: N/A Years of Education: N/A Occupational History Not on file. Social History Main Topics Smoking status: Former Smoker Smokeless tobacco: Not on file Alcohol Use: No Drug Use: No Sexually Active: No Other Topics Concern Not on file Social History Narrative History reviewed. No pertinent family history. Review of Systems Constitutional: Negative for fever, chills Eyes: Negative for vision changes Nose: Negative for congestion, nosebleeds Throat: Negative for sore throat CV/Resp: Positive for chest pain, chest pressure, palpitations, and shortness of breath Negative for cough GI: Negative for abdominal pain, nausea, vomiting, or diarrhea : Negative for urinary problems Musculoskeletal: Negative for back pain, joint pain Skin: Negative for rash Neuro/Psych: Negative for headache Endo/heme/Lymph: Negative for swollen lymph nodes, easy bruising All other systems reviewed and negative except as noted. Physical Exam BP 127/71 | Pulse 77 | Temp(Src) 99 F (37.2 C) | Resp 19 | Ht 1.626 m (5' 4") | Wt 63.5 04 kg (140 lb) | BMI 24.02 kg/m2 | SpO2 98% Vital signs interpretation: Normal Pulse Oximetry interpretation: Normal General: Alert, in no apparent distress Eyes: Normal inspection, pupils equal and round, non-icteric ENT: Normal external inspection Neck: Normal inspection Supple Cardiovascular: Rate and rhythm normal No murmurs Respiratory: Breath sounds normal bilaterally No rales, wheezing or rhonchi Abdomen: Soft, non-tender, non-distended No guarding or rebound Back: Normal inspection Skin: Color normal Warm and dry No rash Neuro: Alert, no AMS No gross motor/sensory deficits Medical Decision Making and Emergency Department Course ED Department Course 3:34 PM Patient presents to ED with complaints of chest pressure, chest pain (resolved), pa lpitations, and shortness of breath. Pt transferred here from [facility]. Pt is [address] PA with cardiac stenting. On exam the patient has no remarkable findings. My DDx includes , but is not limited to: anxiety reaction, ACS, PE, pneumonia, pneumothorax, PA. Will order repeat Troponin, and reevaluate the patient. Patient is stable at this time. Reviewed transfer paperwork from [facility], results appear unremarkable. Discussed the case with Dr. Mane, nursery worker, who requests the pt be admitted for serial cardiac enzymes and observation, and if everything is negative she may likely be discharged tomorrow. 4:21 PM Discussed the case with Dr. Barrios, hospitalist, who accepts the pt for admiss ion. Filed Vitals: 12/24/13 1529 12/24/13 1649 BP: 127/71 103/56 Pulse: 77 73 Temp: 99 F (37.2 C) Resp: 19 16 Height: 1.626 m (5' 4") Weight: 63.504 kg (140 lb) SpO2: 98% 97% Records Reviewed Nursing notes. Transfer paperwork Laboratory Evaluation Results Procedure Component Value Ref Range Date/Time POC cardiac troponin [[id number]] Collected: 12/24/13 153 Order Status: Completed Updated: 12/24/131548 POC CARDIAC TROPONIN 0.05 0.00 - 0.10 ng/mL I personally reviewed the lab results and they have been posted to the chart. Pertinent po sitive and negative findings have been addressed appropriately. Radiology and EKG Evaluation Imaging Results None EKG at 1530: Sinus rhythm with occasional premature ventricular complexes Rate: 72 Subtle T wave inversions in III and AVF Interpreted by me at time of service ED Diagnoses Final diagnoses Chest pain S/P coronary artery stent placement Disposition: ED Disposition Admit/Observation Bed request special needs: None Diagnosis?: chest pain, Recent Stent placement. Procedures Additional Documentation Procedures Attending Note: Documentation assistance provided by Shanon Ontiveros (Scribe). Information recorded by the scribe has been reviewed and validated by me. I ag ree with its contents. DO Owen Gibson DO 12/24/13 1758 onversion Transaction, Provider Unknown - 12/24/2013 3:33 PM PDTFormatting of this note might be diff erent from the original. ED Notes by Fili Veronica RN at 12/24/13 153 Author: Fili Veronica RN Service: (none) Author Type: Registered Nurse Filed: 12/24/131532 Date of Service: 12/24/131532 Status: Signed Steved[place] Dock: Fili Veronica RN (Registered Nurse) Patient placed on telemetry, with Sa02 and routine NIBP monitoring. Telemetry floor notifie d via telephone. Fili Veronica RN 12/24/13 153 onver jill Transaction, Provider Unknown - 12/24/2013 3:25 PM PDT ED Notes by Yudy Mcdaniel RN at 12/24/13 1525 Author: Yudy Mcdaniel RN Service: (none) Author Type: Registered Nurse Filed: 12/24/13 1525 Date of Service: 12/24/135 Status: Signed Steved[place] Dock: Yudy Mcdaniel RN (Registered Nurse) Bed: 13 Expected date: Expected time: Means of arrival: Comments: docume nted in this encounter Plan of Treatment Not on filedocumented as of this encounter Procedures + +--------+ + + + | Procedure Name | Priori | Date/Time | Associated Diagnosis | Comments | | | ty | | | | + +--------+ + + + | ECG 12 LEAD | Routin | 12/25/2013 | | Results for this | | | e | 5:58 AM | | procedure are in the | | | | PDT | | results section. | + +--------+ + + + | EXTERNAL LAB: CBC | Routin | 12/25/2013 | | Results for this | | | e | 3:27 AM | | procedure are in the | | | | PDT | | results section. | + +--------+ + + + | TROPONIN I | Routin | 12/25/2013 | | Results for this | | | e | 3:27 AM | | procedure are in the | | | | PDT | | results section. | + +--------+ + + + | CK-MB | Routin | 12/25/2013 | | Results for this | | | e | 3:27 AM | | procedure are in the | | | | PDT | | results section. | + +--------+ + + + | PHOSPHORUS | Routin | 12/25/2013 | | Results for this | | | e | 3:27 AM | | procedure are in the | | | | PDT | | results section. | + +--------+ + + + | MAGNESIUM | Routin | 12/25/2013 | | Results for this | | | e | 3:27 AM | | procedure are in the | | | | PDT | | results section. | + +--------+ + + + | CK TOTAL | Routin | 12/25/2013 | | Results for this | | | e | 3:27 AM | | procedure are in the | | | | PDT | | results section. | + +--------+ + + + | BASIC METABOLIC | Routin | 12/25/2013 | | Results for this | | PANEL | e | 3:27 AM | | procedure are in the | | | | PDT | | results section. | + +--------+ + + + | TROPONIN I | Routin | 12/24/2013 | | Results for this | | | e | 9:22 PM | | procedure are in the | | | | PDT | | results section. | + +--------+ + + + | CK-MB | Routin | 12/24/2013 | | Results for this | | | e | 9:22 PM | | procedure are in the | | | | PDT | | results section. | + +--------+ + + + | T4, FREE | Routin | 12/24/2013 | | Results for this | | | e | 9:22 PM | | procedure are in the | | | | PDT | | results section. | + +--------+ + + + | CK TOTAL | Routin | 12/24/2013 | | Results for this | | | e | 9:22 PM | | procedure are in the | | | | PDT | | results section. | + +--------+ + + + | ECG 12 LEAD | Routin | 12/24/2013 | | Results for this | | | e | 3:30 PM | | procedure are in the | | | | PDT | | results section. | + +--------+ + + + documented in this encounter Results ECG 12 lead (12/25/2013 5:58 AM PDT) + + + + + + | Component | Value | Ref Range | Performed | Pathologist | | | | | At | Signature | + + + + + + | DIAGNOSIS: | Normal sinus | | EXTERNAL | | | | rhythmNonspecific T wave | | LAB | | | | abnormalityAbnormal | | | | | | ECGWhen compared with | | | | | | ECG of 24-DEC-2013 | | | | | | 15:30,Premature | | | | | | ventricular complexes | | | | | | are no longer | | | | | | PresentConfirmed by | | | | | | NADIA HANNA ([id number]) on | | | | | | 12/25/2013 4:52:54 PM | | | | + + + + + + + + | Specimen | + + | | + + + + + | Narrative | Performed At | + + + | Historically converted procedure from [facility] environment | EXTERNAL LAB | + + + + +---------+ + + | Performing | Address | City/State/Zipcode | Phone Number | | Organization | | | | + +---------+ + + | EXTERNAL LAB | | | | + +---------+ + + CK-MB (12/25/2013 3:27 AM PDT) + + + + + -+ | Component | Value | Ref Range | Performed | Pathologist | | | | | At | Signature | + + + + + -+ | CK-MB | 0.9Comment: Testing | 0.5 - 3.6 ng/mL | EXTERNAL | | | | performed at [facility] | | LAB | | | | [facility];[place], [place] | | | | | | [address] | | | | + + + + + -+ | CK-MB Index | 2.5Comment: CK INDEX | | EXTERNAL | | | | INTERPRETATION: | | LAB | | | | MMB ng/mL | | | | | | | | | | | |CK INDEX INTERPRETATION: | | | | | | MMB ng/mL | | | | | | | | | | + + + + + -+ + + | Specimen | + + | | + + + +---------+ + + | Performing | Address | City/State/Zipcode | Phone Number | | Organization | | | | + +---------+ + + | EXTERNAL LAB | | | | + +---------+ + + Troponin I (12/25/2013 3:27 AM PDT) + + + + + + | Component | Value | Ref Range | Performed | Pathologist | | | | | At | Signature | + + + + + + | Troponin I, | 0.06Comment: 0.00 to | 0.00 - 0.10 | EXTERNAL | | | Qual | 0.10 CONSISTENT WITH | ng/mL | LAB | | | | NORMAL POPULATION0.11 to | | | | | | 0.60 CONSISTENT WITH | | | | | | INCREASED RISK FOR | | | | | | ADVERSE OUTCOMES> 0.60 | | | | | | CONSISTENT | | | | | | WITH WHO CRITERIA FOR | | | | | | ACUTE PA Testing | | | | | | performed at [facility] | | | | | | [facility];[place], [place] | | | | | | [address] | | | | + + + [...] + +---------+ + + External Lab: CBC (12/25/2013 3:27 AM PDT) + + + + + + | Component | Value | Ref Range | Performed | Pathologist | | | | | At | Signature | + + + + + + | WBC | 7.6Comment: Testing | 3.8 - 11.0 K/uL | EXTERNAL | | | | performed at [facility], [address] | | LAB | | | | [address], | | | | | | [place] [address] | | | | + + + + + + | Non- | 4.14Comment: Testing | 3.70 - 5.10 | EXTERNAL | | | Red Blood | performed at [facility], [address] | M/uL | LAB | | | Cells | [address], | | | | | Counted | [place] [address] | | | | + + + + + + | Hemoglobin | 12.2Comment: Testing | 11.3 - 15.5 | EXTERNAL | | | | performed at [facility], [address] | g/dL | LAB | | | | [address], | | | | | | [place] [address] | | | | + + + + + + | Hematocrit, | 37.9Comment: Testing | 34.0 - 46.0 % | EXTERNAL | | | POC | performed at [facility], [address] | | LAB | | | | [address], | | | | | | [place] [address] | | | | + + + + + + | MCV | 91.6Comment: Testing | 80.0 - 100.0 fl | EXTERNAL | | | | performed at [facility], [address] | | LAB | | | | [address], | | | | | | [place] [address] | | | | + + + + + + | MCH | 29.4Comment: Testing | 27.0 - 34.0 pg | EXTERNAL | | | | performed at [facility], [address] | | LAB | | | | [address], | | | | | | [place] [address] | | | | + + + + + + | MCHC | 32.1Comment: Testing | 32.0 - 35.5 | EXTERNAL | | | | performed at [facility], [address] | g/dL | LAB | | | | [address], | | | | | | [place] [address] | | | | + + + + + + | RDW-CV | 47.3Comment: Testing | 37 - 53 fl | EXTERNAL | | | | performed at [facility], [address] | | LAB | | | | [address], | | | | | | [place] [address] | | | | + + + + + + | Platelet | 316Comment: Testing | 150 - 400 K/uL | EXTERNAL | | | Count | performed at [facility], [address] | | LAB | | | Plasma | [address], | | | | | | [place] [address] | | | | + + + + + + | MPV | 8.6Comment: Testing | fl | EXTERNAL | | | | performed at [facility], [address] | | LAB | | | | [address], | | | | | | [place] [address] | | | | + + + + + + | Differentia | AUTOMATEDComment: | | EXTERNAL | | | l Type | Testing performed at | | LAB | | | | [facility], [address] | | | | | | [place] | | | | | | [address] | | | | + + + + + + | % Segmented | 40.4Comment: Testing | % | EXTERNAL | | | | performed at [facility], [address] | | LAB | | | Neutrophils | [address], | | | | | | [place] [address] | | | | + + + + + + | % | 43.4Comment: Testing | % | EXTERNAL | | | Lymphocytes | performed at [facility], [address] | | LAB | | | | [address], | | | | | | [place] [address] | | | | + + + + + + | % Monocytes | 11.5Comment: Testing | % | EXTERNAL | | | | performed at [facility], [address] | | LAB | | | | [address], | | | | | | [place] [address] | | | | + + + + + + | % | 3.9Comment: Testing | % | EXTERNAL | | | Eosinophils | performed at [facility], [address] | | LAB | | | | [address], | | | | | | [place] [address] | | | | + + + + + + | % Basophils | 0.8Comment: Testing | % | EXTERNAL | | | | performed at [facility], [address] | | LAB | | | | [address], | | | | | | [place] [address] | | | | + + + + + + | Absolute | 3.1Comment: Testing | 1.9 - 7.4 K/uL | EXTERNAL | | | Segmented | performed at [facility], [address] | | LAB | | | Neutrophils | [address], | | | | | | [place] [address] | | | | + + + + + + | Absolute | 3.3Comment: Testing | 1.0 - 3.9 K/uL | EXTERNAL | | | Lymphocytes | performed at [facility], [address] | | LAB | | | | [address], | | | | | | [place] [address] | | | | + + + + + + | Absolute | 0.9 (H)Comment: Testing | 0 - 0.8 K/uL | EXTERNAL | | | Monocytes | performed at [facility], [address] | | LAB | | | | [address], | | | | | | [place] [address] | | | | + + + + + + | Absolute | 0.3Comment: Testing | 0 - 0.5 K/uL | EXTERNAL | | | Eosinophils | performed at [facility], [address] | | LAB | | | | [address], | | | | | | [place] [address] | | | | + + + + + + | Absolute | 0.1Comment: Testing | 0 - 0.1 K/uL | EXTERNAL | | | Basophils | performed at [facility], [address] | | LAB | | | | [address], | | | | | | [place] [address] | | | | + + + + + + + + | Specimen | + + | Blood specimen | | (specimen) | + + + +---------+ + + | Performing | Address | City/State/Zipcode | Phone Number | | Organization | | | | + +---------+ + + | EXTERNAL LAB | | | | + +---------+ + + Phosphorus (12/25/2013 3:27 AM PDT) + + + + + + | Component | Value | Ref Range | Performed | Pathologist | | | | | At | Signature | + + + + + + | PHOSPHORUS | 3.5Comment: Testing | 2.3 - 4.8 mg/dL | EXTERNAL | | | | performed at [facility], [address] | | LAB | | | | [address], | | | | | | [place] [address] | | | | + + + + + + + + | Specimen | + + | Blood specimen | | (specimen) | + + + +---------+ + + | Performing | Address | City/State/Zipcode | Phone Number | | Organization | | | | + +---------+ + + | EXTERNAL LAB | | | | + +---------+ + + Magnesium (12/25/2013 3:27 AM PDT) + + + + + + | Component | Value | Ref Range | Performed | Pathologist | | | | | At | Signature | + + + + + + | Magnesium | 1.9Comment: Testing | 1.7 - 2.4 mg/dL | EXTERNAL | | | | performed at [facility], [address] | | LAB | | | | [address], | | | | | | [place] [address] | | | | + + + + + + + + | Specimen | + + | Blood specimen | | (specimen) | + + + +---------+ + + | Performing | Address | City/State/Zipcode | Phone Number | | Organization | | | | + +---------+ + + | EXTERNAL LAB | | | | + +---------+ + + CK Total (12/25/2013 3:27 AM PDT) + + + + + + | Component | Value | Ref Range | Performed | Pathologist | | | | | At | Signature | + + + + + + | CK, Total | 36Comment: Testing | 30 - 240 U/L | EXTERNAL | | | | performed at [facility];[address] | | LAB | | | | [facility];[place], [place] | | | | | | [address] | | | | + + + [...] + +---------+ + + Basic Metabolic Panel (12/25/2013 3:27 AM PDT) + + + + + + | Component | Value | Ref Range | Performed | Pathologist | | | | | At | Signature | + + + + + + | Na | 138Comment: Testing | 135 - 143 | EXTERNAL | | | | performed at [facility], [address] | mmol/L | LAB | | | | [address], | | | | | | [place] [address] | | | | + + + + + + | K | 3.4 (L)Comment: Testing | 3.5 - 4.9 | EXTERNAL | | | | performed at [facility], [address] | mmol/L | LAB | | | | [address], | | | | | | [place] [address] | | | | + + + + + + | Cl | 108Comment: Testing | 99 - 109 mmol/L | EXTERNAL | | | | performed at [facility], [address] | | LAB | | | | [address], | | | | | | [place] [address] | | | | + + + + + + | CO2 | 23Comment: Testing | 23 - 32 mmol/L | EXTERNAL | | | | performed at [facility], [address] | | LAB | | | | [address], | | | | | | [place] [address] | | | | + + + + + + | Anion Gap | 10Comment: Testing | 5 - 20 mmol/L | EXTERNAL | | | | performed at [facility], [address] | | LAB | | | | [address], | | | | | | [place] [address] | | | | + + + + + + | Glucose, | 106 (H)Comment: Testing | 65 - 99 mg/dL | EXTERNAL | | | Fasting | performed at [facility], [address] | | LAB | | | | [address], | | | | | | [place] [address] | | | | + + + + + + | BUN | 16Comment: Testing | 8 - 25 mg/dL | EXTERNAL | | | | performed at [facility], [address] | | LAB | | | | [address], | | | | | | [place] [address] | | | | + + + + + + | Creatinine | 0.57Comment: Testing | 0.50 - 1.00 | EXTERNAL | | | | performed at [facility], [address] | mg/dL | LAB | | | | [address], | | | | | | [place] [address] | | | | + + + + + + | BUN/Creatin | 28Comment: Testing | | EXTERNAL | | | ine Ratio | performed at [facility], [address] | | LAB | | | | [address], | | | | | | [place] [address] | | | | + + + + + + | Calcium | 8.5Comment: Testing | 8.5 - 10.2 | EXTERNAL | | | | performed at [facility], [address] | mg/dL | LAB | | | | [address], | | | | | | [place] [address] | | | | + + + [...] W | | | | | | [address], | | | | | | [place] [address] | | | | + + + + + + + + | Specimen | + + | Blood specimen | | (specimen) | + + + +---------+ + + | Performing | Address | City/State/Zipcode | Phone Number | | Organization | | | | + +---------+ + + | EXTERNAL LAB | | | | + +---------+ + + CK-MB (12/24/2013 9:22 PM PDT) + + + + + -+ | Component | Value | Ref Range | Performed | Pathologist | | | | | At | Signature | + + + + + -+ | CK-MB | 0.8Comment: Testing | 0.5 - 3.6 ng/mL | EXTERNAL | | | | performed at [facility];[address] | | LAB | | | | [address];[place] | | | | | | [address] | | | | + + + + + -+ | CK-MB Index | 2.0Comment: CK INDEX | | EXTERNAL | | | | INTERPRETATION: | | LAB | | | | MMB ng/mL | | | | | | | | | | | |CK INDEX INTERPRETATION: | | | | | | MMB ng/mL | | | | | | | | | | + + + + + -+ + + | Specimen | + + | | + + + +---------+ + + | Performing | Address | City/State/Zipcode | Phone Number | | Organization | | | | + +---------+ + + | EXTERNAL LAB | | | | + +---------+ + + Troponin I (12/24/2013 9:22 PM PDT) + + + + + + | Component | Value | Ref Range | Performed | Pathologist | | | | | At | Signature | + + + + + + | Troponin I, | 0.067Comment: 0.00 to | 0.00 - 0.10 | EXTERNAL | | | Qual | 0.10 CONSISTENT WITH | ng/mL | LAB | | | | NORMAL POPULATION0.11 to | | | | | | 0.60 CONSISTENT WITH | | | | | | INCREASED RISK FOR | | | | | | ADVERSE OUTCOMES> 0.60 | | | | | | CONSISTENT | | | | | | WITH WHO CRITERIA FOR | | | | | | ACUTE PA Testing | | | | | | performed at [facility];[address] | | | | | | [address];[place], [place] | | | | | | [address] | | | | + + + + + + + + | Specimen | + + | Blood specimen | | (specimen) | + + + +---------+ + + | Performing | Address | City/State/Zipcode | Phone Number | | Organization | | | | + +---------+ + + | EXTERNAL LAB | | | | + +---------+ + + T4, Free (12/24/2013 9:22 PM PDT) + + + + + + | Component | Value | Ref Range | Performed | Pathologist | | | | | At | Signature | + + + + + + | FREE T4 | 1.1Comment: Testing | 0.7 - 1.5 ng/dL | EXTERNAL | | | (REF) | performed at [facility], [address] | | LAB | | | | [address], | | | | | | [place] [address] | | | | + + + + + + + + | Specimen | + + | Blood specimen | | (specimen) | + + + +---------+ + + | Performing | Address | City/State/Zipcode | Phone Number | | Organization | | | | + +---------+ + + | EXTERNAL LAB | | | | + +---------+ + + CK Total (12/24/2013 9:22 PM PDT) + + + + + + | Component | Value | Ref Range | Performed | Pathologist | | | | | At | Signature | + + + + + + | CK, Total | 41Comment: Testing | 30 - 240 U/L | EXTERNAL | | | | performed at [facility];[address] | | LAB | | | | [address];[place], [place] | | | | | | [address] | | | | + + + + + + + + | Specimen | + + | Blood specimen | | (specimen) | + + + +---------+ + + | Performing | Address | City/State/Zipcode | Phone Number | | Organization | | | | + +---------+ + + | EXTERNAL LAB | | | | + +---------+ + + ECG 12 lead (12/24/2013 3:30 PM PDT) + + + + + + | Component | Value | Ref Range | Performed | Pathologist | | | | | At | Signature | + + + + + + | DIAGNOSIS: | Sinus rhythm with | | EXTERNAL | | | | occasional Premature | | LAB | | | | ventricular complexesT | | | | | | wave abnormality, | | | | | | consider inferior | | | | | | ischemiaAbnormal ECGWhen | | | | | | compared with ECG of | | | | | | 17-DEC-2013 | | | | | | 06:53,Premature | | | | | | ventricular complexes | | | | | | are now PresentThis ECG | | | | | | contains Unconfirmed | | | | | | Interpretation | | | | | | Statements. See ED | | | | | | Record for Physician | | | | | | Interpretation. | | | | | | Confirmed by MUSE READ | | | | | | ONLY, -COMPUTER ([id number]), | | | | | | film and video editor MELANIE MENDENHALL | | | | | | (4) on 12/24/2013 6:01:19 | | | | | | PM | | | | + + + + + + + + | Specimen | + + | | + + + + + | Narrative | Performed At | + + + | Historically converted procedure from [facility] environment | EXTERNAL LAB | + + + + +---------+ + + | Performing | Address | City/State/Zipcode | Phone Number | | Organization | | | | + +---------+ + + | EXTERNAL LAB | | | | + +---------+ + + documented in this encounter Visit Diagnoses + + | Diagnosis | + + | Chest pain Chest pain, unspecified | + + | S/P coronary artery stent placement Postsurgical percutaneous transluminal coronary | | angioplasty status | + + documented in this encounter
--- OUTSIDE RECORDS SUMMARY | ~2019-12-11 | XMS | Encounter Summary ---
Demographics + + + | Address | [address] | | | [place] [address] | + + + | Home Phone [...] Author + + + | Author | [facility] | | | and [place] | + + + | Organization | [facility] | | [...] Team Providers + +------+ + | Care Pipe Layer Helper Name | Role | Phone | + +------+ + PCP | Unavailable | + +------+ + Encounter Details +--------+ + + + + | Date | Type | Department | Care Team | Description | +--------+ + + + + | 11/04/ | Hospital | [facility] | Oleksandr Hyde, | | | 2011 | Encounter | [facility] | [address] | | | | | [address] | [place], [place] | | | | | [place] [address] | [address] | | | | | [phone] | | | +--------+ + + + [...] + | tiotropium | Inhale 18 mcg into | | 0 | 02/23/20 | | | (SPIRIVA HANDIHALER) | the lungs Daily. | | | 11 | 2 | | 18 mcg inhalation | | | | | | | capsule | | | | | | + + + +---------+ + + documented as of this encounter Plan of Treatment Not on filedocumented as of this encounter Visit Diagnoses Not on filedocumented in this encounter"
--- OUTSIDE RECORDS SUMMARY | ~2019-12-11 | XMS | Encounter Summary ---
Demographics + + + | Address | [address] | | | [place] [address] | + + + | Home Phone | | + + + | Preferred Language | Unknown | + + + | Marital Status | Single | + + + | Episcopalian Affiliation | Unknown | + + + | Race | White | + + + | Ethnic Group | Not or | + + + Author + + + | Author | [facility] | | | and [place] | + + + | Organization | [facility] | | | [...] Team Providers + +------+ + | Care Steward/Stewardess Night Name | Role | Phone | + +------+ + | David Arias MD | PCP | | + +------+ + Reason for Visit +--------+--------+ + | Reason | Onset | Comments | | | Date | | +--------+--------+ + | Other | 12/21/ | patient upset with our office | | | 2013 | | +--------+--------+ + Encounter Details +--------+ + + + + | Date | Type | Department | Care Team | Description | +--------+ + + + + | 12/21/ | Telephone | [facility] | Pooja Owens, | Other (patient upset | | 2013 | | CARDIOLOGY [address] [facility] | with our office) | | | | [place], | [facility], | | | | | [place] [address] | [place] [address] | | | | | [phone] | [phone] | | | | | | | [...] Telephone Encounter - Clarice Madrigal RN - 12/21/2013 10:14 AM SWAPNAPriscila called on y 12/17/13 to report that she had a heart attack and was sent to [facility]. She has had stents placed. She does not understand why she has a loop recorder even. She is upset that we did not call her sooner to even tell her that we were sorry that she had a heart attack. She wa s at first asking why Dr Fernandes himself did not call. She states that she wishes to cancel al l appointments with us at this time and that she has found herself another clinical fellow. I offered apologies for not getting back to her sooner, and have cancelled her appointments pe r her wishes. document ed in this encounter Plan of Treatment Not on filedocumented as of this encounter Visit Diagnoses Not on filedocumented in this encounter"
--- OUTSIDE RECORDS SUMMARY | ~2019-12-11 | XMS | Encounter Summary ---
Demographics + + + | Address | [address] | | | [place] [address] | + + + | Home Phone | | + + + | Preferred Language | Unknown | + + + | Marital Status | Single | + + + | Hoahaoism Affiliation | Unknown | + + + [...] Team Providers + +------+ + | Care Road Engineer Freight Name | Role | Phone | + +------+ + | David Arias MD | PCP | | + +------+ + Reason for Visit +---------+--------+ + | Reason | Onset | Comments | | | Date | | +---------+--------+ + | Results | 03/18/ | | | | 2019 | | +---------+--------+ + Encounter Details +--------+ + + + + | Date | Type | Department | Care Team | Description | +--------+ + + + + | 03/18/ | Telephone | [facility] | Oleksandr Hyde, | Results | | 2019 | | PULMONARY [address] | MD [address] | | | | | [place], | [place] | | | | | [place] [address] | [id number] | | | | | [phone] | | | +--------+ + + + [...] Telephone Encounter - Jennyfer Galan RN - 03/18/2019 9:09 AM PSTPatient notified. Okay per patient. Routed to PCP. elephone Encounter - Jennyfer Galan RN - 03/18/2019 9:09 AM PST----- Message fro m Oleksandr Hyde MD sent at 03/18/2019 6:55 AM PST ----- Please tell the patient that none of her labs indicated a reason for her extreme fatigue, s hortness of breath and chest pressure. Please forward the lab results to Priscila's primary care provider. Please recommend Priscila that she seek a follow-up appointment with her [facility] provider as soon as possible to further investigate the cause of her symptoms. Lastly sammie hutchinson send a copy of her EKG from yesterday to her primary care provider. ----- Message ----- From: Lab, Background User Sent: 03/17/2019 12:52 PM PST To: Oleksandr Hyde MD documented in this e ncounter Plan of Treatment Not on filedocumented as of this encounter Visit Diagnoses Not on filedocumented in this encounter"
--- OUTSIDE RECORDS SUMMARY | ~2019-12-11 | XMS | Encounter Summary ---
Demographics + + + | Address | [address] | | | [place] [address] | + + + | Home Phone [...] Author + + + | Author | [facility] | | | and [place] | + + + | Organization | [facility] | | | [...] Team Providers + +------+ + | Care Universal Worker Assisted Living Name | Role | Phone | + +------+ + | David Arias MD | PCP | | + +------+ + Reason for Visit +--------+ + | Reason | Comments | +--------+ + | COPD | f/u | +--------+ + Encounter Details +--------+---------+ + + + | Date | Type | Department | Care Team | Description | +--------+---------+ + + + | 08/19/ | Office | [facility] | Oleksadnr Hyde, | COPD (Primary Dx) | | 2014 | Visit | PULMONARY [address] | MD [address] | | | | | [place], | [place] | | | | | [place] [address] | [address] | | | | | [phone] | | | +--------+---------+ + + + [...] + + + | Blood Pressure | 124/66 | 08/19/2014 2:53 PM | | | | | PDT | | + + + + + | Pulse | 86 | 08/19/2014 2:53 PM | | | | | PDT | | + + + + + | Temperature | - | - | | + + + + + | Respiratory Rate | 14 | 08/19/2014 2:53 PM | | | | | PDT | | + + + + + | Oxygen Saturation | 98% | 08/19/2014 2:53 PM | room air | | | | PDT | | + + + + + | Inhaled Oxygen | - | - | | | Concentration | | | | + + + + + | Weight | 65 kg (143 lb 4.8 | 08/19/2014 2:53 PM | | | | oz) | PDT | | + + + + + | Height | 162.6 cm (5' 4") | 08/19/2014 2:53 PM | | | | | PDT | | + + + + + | Body Mass Index | 24.6 | 08/19/2014 2:53 PM | | | | | PDT | | + + + + + documented in this encounter Patient Instructions Patient Instructions Oleksandr Hyde MD - 08/19/2014 3:07 PM PDT What is COPD? COPD stands for chronic obstructive pulmonary disease. It means the airways in your lungs a re blocked (obstructed). Because of this, it is hard to breathe.You may have trouble with daily activities because of shortness of breath. Over time the shortness of breath usually w orsens making it more and more difficult to take care of yourself and take part in activitie s. Chronic bronchitis and emphysema are two common types of COPD. What happens in chronic bronchitis? Thecells in the airways make more mucus than normal. The mucus builds up, narrowing the a irways. This means less air travels into and out of the lungs. The lining of the airways may also become inflamed (swollen) and causes the airways to narrow even more. What happens in emphysema? The small airways are damaged andlose their stretchiness. The airwayscollapse when you exhale, causing air to get trapped in the air sacs.This means that less oxygen enters the blood vessels and less oxygen is delivered to all of the cells of your body. This makes it h iron to breathe. Damage to cilia Cilia are small hairs that line and protect the airways. Smoking damages the cilia. Damaged cilia can t sweep mucus and particles away. Some of the cilia are destroyed. This damage worsens COPD. How did I get COPD? Most people get COPD from smoking. Cigarette smoke damages lungs, which can develop into CO PD over many years. How COPD affects you COPD makes you work harder to breathe. Air may get trapped in the lungs, which prevents you r lungs from filling completely when you inhale (breathe in). It s harder to takedeep br eaths. Over time, your lungs may become enlarged. This makes it more difficult for the lungs to expand fully in the chest. These problemscause you to have shortness of breath (also c alled dyspnea). Wheezing (hoarse, whistling breathing), chronic cough, and fatigue (feeling tired and worn out) are also common. [id number] [employer]. [address] [place] [id number]. All righ ts reserved. This information is not intended as a substitute for professional medical care. Always follow your healthcare professional's instructions. Exercising with Chronic Lung Disease: Increasing Endurance Endurance exercises helpcondition your muscles. This helps increase what you are able to do. These are aerobic exercises, meaning they help your body use oxygen better. Over time, t hey ll help you have more energy and less shortness of breath. Wand Work 1. Hold a wand or rolled towel on your lap. Keep your back straight and your shoulders rela xed. Inhale. 2. While gently exhaling through pursed lips, lift both arms up to shoulder level. When you re finished exhaling, inhale and return to starting position. 3. As you master this exercise, try to lift your arms a little higher each time. The goal i s to lift them as high as you can toward the ceiling. Remember to exhale as you lift. Note:You can also try using a stretchy elastic band instead of a wand. This helps build s trength. Special instructions: Roller Coaster Wave 1. Inhale. Then while exhaling, lift both arms over your head. 2. Wave your arms from one side to the other until you re done exhaling. Don t twist. 3. Inhale while returning to starting position. Exhale as you repeat the wave. Note:If lifting your arms above your head is too hard, try holding them in front of you a t shoulder level instead. Special instructions: Riding a Stationary Bicycle 1. Adjust the seat so your knees are only slightly bent when the pedals are at their lowest points. 2. Begin to pedal at a comfortable pace. Do pursed-lip breathing as you pedal. 3. In time, your health care provider or pulmonary rehabilitation team may suggest adding r esistance to make your muscles work harder. Use the bike for minutes Special instructions: Using a Treadmill 1. Make sure you know how the treadmill works before you use it. 2. Start walking at a comfortable pace. Do pursed-lip breathing as you walk. 3. As you get stronger, your healthcare provider or pulmonary rehabilitation team may sugge st increasing speed or adding elevation. Note:Regular walking is just as good as using a treadmill. Walk on a level surface. You m ay want to use a walker with wheels. If you use oxygen, you can put the oxygen unit in the b asket of the walker. Walk for minutes. Special instructions: Pursed-Lip Breathing Inhaling through the nose and exhaling through pursed lips makes breathing easier during ex ercise. To do pursed-lip breathin. Relax your neck and shoulder muscles. Inhale slowly through your nose for at least 2 cou nts. 2. Pucker your lips as if to blow out a candle. Exhale slowly and gently through your purse d lips for at least twice as long as you inhaled. [id number] [employer]. [address] [place] [address], [place] [address]. All righ ts reserved. This information is not intended as a substitute for professional medical care. Always follow your healthcare professional's instructions. documented in this encounter Progress Notes Oleksandr Hyde MD - 08/19/2014 2:59 PM PDTFormatting of this note might be different f rom the original. Pulmonary Follow Up 08/19/2014 HPI Priscila Brasher is a 74 y.o. female patient of David Arias MD here today for fo llow up of probable COPD. The last pulmonary clinic visit was on 08/01/14. Since their last appointment they feel lik e their breathing issues have been decreasing. They have not had any other acute pulmonary i llnesses. Priscila continues to note shortness of breath slightly above baseline.. Decrease d sputum of late. They are currently on a daily regimen of twice daily Douneb for their COPD. They do feel l alida this medication regimen is partly controlling their symptoms. Currently the patient is able to walk 100 feet at their own pace on level ground before dev eloping dyspnea. They are not exercising regularly. Today we did discuss utility of regular schedule exercise.are not They are not enrolled in cardiac/pulmonary rehabilitation. They have not completed pulmonary rehabilitation in the past. The patient does cough chronically, and does not produce mucous. They have not had hemopty sis since our last appointment. She has not been evaluated for nocturnal oxygen. They have not reported recent symptoms of nasal congestion, runny nose or post nasal drip. The patient have not received this year's influenza vaccination. They are up to date with their Pneumovax. She has not yet received a Prevnar. In the past Advair and Spiriva for both noted to be unaffordable. Past Medical History Past Medical History Diagnosis Date Pulmonary embolus (HCC) 2009 after surgery Reflux Non Hodgkin's lymphoma (HCC) 2008 no recurrence, seen by Dr. Gonzalez annually Arthritis Fatigue Hiatal hernia Sleep apnea No CPAP. O2 at night. COLINDRES (dyspnea on exertion) Pneumonia Episodes 1990 and 2013 Emphysema Normal FEV1 and extensive on CT scan Hypoxemia Osteoporosis Depression Hepatitis B infection 1970's Rheumatic fever 1948 enlarged heart and murmur for a while Valvular heart disease Polio 1952 Acute RI (HCC) 12/15/13 4 stents placed Social History: [...] mL SOLN, Take 3 mLs by nebulization 4 times daily., Disp: 360 mL, Rfl: 11; amitriptyline (ELAVIL) 25 mg t ablet, Take 25 mg by mouth nightly., Disp: , Rfl: ; Cholecalciferol (VITAMIN D3) 85856 UNIT S CAPS, Take 1 capsule by mouth Once a week. Every Friday, Disp: , Rfl: ; Cranberry-Vitami n C-Probiotic (AZO CRANBERRY PO), Take 2 capsules by mouth Daily., Disp: , Rfl: cyclobenzaprine (FLEXERIL) 5 MG tablet, Take 5 mg by mouth 3 times daily as needed., Disp: , Rfl: ; diclofenac (VOLTAREN) 75 mg EC tablet, Take 75 mg by mouth Daily., Disp: , Rfl: ; fish oil 1,000 mg capsule, Take 2,000 mg by mouth Daily., Disp: , Rfl: ; Fluticasone Propi gerson (FLONASE NA), once daily, Disp: , Rfl: ; metoclopramide (REGLAN) 10 mg tablet, Take 1 0 mg by mouth 4 times daily as needed., Disp: , Rfl: metoprolol succinate (TOPROL-XL) 25 mg 24 hr tablet, Take 1.5 tablets by mouth Daily., Disp : 45 tablet, Rfl: 6; misoprostol (CYTOTEC) 200 MCG tablet, Take 200 mcg by mouth Daily., Di sp: , Rfl: ; naproxen (NAPROSYN) 500 mg tablet, Take 500 mg by mouth Twice daily as needed ., Disp: , Rfl: ; nitroglycerin (NITROSTAT) 0.4 mg SL tablet, Place 0.4 mg under the tongue as needed for Chest pain., Disp: , Rfl: oxygen, Inhale 2 L into the lungs nightly., Disp: , Rfl: ; SUMAtriptan (IMITREX) 100 mg ta blet, Take 100 mg by mouth as needed., Disp: , Rfl: ; topiramate (TOPAMAX) 100 mg tablet, T aliya 100 mg by mouth Daily., Disp: , Rfl: Immunizations: Immunization History Administered Date(s) Administered INFLUENZA, TRIVALENT PRESERVATIVE FREE (PED/ADOL/ADULT) 01/20/2012, 01/19/2013, 014 INFLUENZA, UNSPECIFIED FORMULATION 01/19/2014 PNEUMOCOCCAL POLYSACCHARIDE 23-VALENT (PPSV23) 04/07/1996, 12/10/2012 TDAP, [...] Denies urticaria and allergic rash. Objective BP 124/66 | Pulse 86 | Resp 14 | Ht 1.626 m (5' 4") | Wt 65 kg (143 lb 4.8 oz) | BMI 24.59 kg/m2 | SpO2 98% Appearance: Alert, cooperative, [...] nodes. Neurologic: Gait normal. No apparent weakness. Assessment 1. COPD status post recent exacerbation. Symptoms are slowly returning to baseline. Stone leon is currently using DuoNeb twice a day and is scheduled fashion. Given a for mobility issues I have discussed with the patient the use of DuoNeb up to 4 times a day and is schedu led fashion. She is in need of a Prevnar 13. We discussed the role of regular schedule exercise. Plan 1. Changes to DuoNeb as noted above. 2. The interval between pulmonary clinic follow-up appointments will be lengthen the 6 mon ths. 3. Prevnar 13 today. 4. High dose seasonal influenza vaccination January 2015. CC: David Arias documented in this encounter Plan of Treatment Not on filedocumented as of this encounter Visit Diagnoses + + | Diagnosis | + + | COPD - Primary Chronic airway obstruction, not elsewhere classified | + + documented in this encounter
--- OUTSIDE RECORDS SUMMARY | ~2019-12-11 | XMS | Encounter Summary ---
Demographics + + + | Address | [address] | | | [place] [address] | + + + | Home Phone | | + + + | Preferred Language | Unknown | + + + | Marital Status | Single | + + + | Oriental Orthodox Affiliation | Unknown | + + + | Race | White | + + + | Ethnic Group | Not or | + + + Author + + + | Author | [facility] | | | and [place] | + + + | Organization | [facility] | | | [...] Team Providers + +------+ + | Care Cardiovascular Sonographer Name | Role | Phone | + [...] | | | IMAGING [address] | | | | | [address] [place] | [place] [address] | | | | | [place] [address] | | | | | | [phone] | | | +--------+ + + + [...] + | XR CHEST PA AND | Routin | 01/27/2018 | | Results for this | | LATERAL | e | 8:00 AM | | procedure are in the | | | | PDT | | results section. | + +--------+ + + + documented in this encounter Results XR Chest PA and Lateral (01/27/2018 8:00 AM PDT) + + | Specimen | [...]
--- OUTSIDE RECORDS SUMMARY | ~2019-12-11 | XMS | Encounter Summary ---
Demographics + + + | Address | [address] | | | [place] [address] | + + + | Home Phone [...] Author + + + | Author | [facility] | | | and [place] | + + + | Organization | [facility] | | | [...] Providers + +------+ + | Care Community Outreach Worker Name | Role | Phone | + +------+ + | David Arias MD | PCP | | + +------+ + Reason for Visit + + + | Reason | Comments | + + + | Follow-up | 6 month follow up | + + + Follow Up (Routine) + +--------+ + + + + | Status | Reason | Specialty | Diagnoses / | Referred By | Referred To | | | | | Procedures | Contact | Contact | + +--------+ + + + + | Authorized | | Pulmonary | Diagnoses | Hugo, | Barrett, | | | | Disease / | | David Starr, | MD Oleksandr | | | | Pulmonology | [place] | [address] | | | | | r emphysema | [address] | [place], | | | | | ([facility]) | [address] | [place] [address] | | | | | Hypoxemia | [place], | Phone: | | | | | Procedures | [place] [address] | [phone] | | | | | F/U APPT DR | | Fax: | | | | | ANGELA GOMEZ | | [phone] | | | | | 03/25/19 | | | + +--------+ + + + + Encounter Details +--------+---------+ + + + | Date | Type | Department | Care Team | Description | +--------+---------+ + + + | 03/17/ | Office | [facility] | Oleksandr Hyde, | Shortness of breath | | 2019 | Visit | PULMONARY [address] | MD [address] | (Primary Dx); Chest | | | | [place], | [place], [place] | pain at rest; | | | | [place] [address] | [address] | Irregular heartbeat; | | | | [phone] | | Chronic obstructive | | | | | | pulmonary disease, | | | | | | unspecified COPD | | | | | | type (HCC) | +--------+---------+ + + + Social [...] + + + | Blood Pressure | 112/62 | 03/17/2019 11:28 AM | | | | | PST | | + + + + + | Pulse | 108 | 03/17/2019 11:28 AM | | | | | PST | | + + + + + | Temperature | 37.4 C (99.3 F) | 03/17/2019 11:28 AM | | | | | PST | | + + + + + | Respiratory Rate | - | - | | + + + + + | Oxygen Saturation | 96% | 03/17/2019 11:28 AM | 2L | | | | PST | | + + + + + | Inhaled Oxygen | - | - | | | Concentration | | | | + + + + + | Weight | 71.4 kg (157 lb 6.5 | 03/17/2019 11:28 AM | | | | oz) | PST | | + + + + + | Height | 162.6 cm (5' 4") | 03/17/2019 11:28 AM | | | | | PST | | + + + + + | Body Mass Index | 27.02 | 03/17/2019 11:28 AM | | | | | PST | | + + + + + documented in this encounter Patient Instructions Patient Instructions Oleksandr Hyde MD - 03/17/2019 11:30 AM PST Uncertain Causes of Chest Pain Chest pain can happen for a number of reasons. Sometimes the cause can't be determined. If yourcondition does not seem serious, and your pain does not appear to be coming from your heart, your healthcare provider may recommend watching it closely. Sometimes the signs of a serious problem take more time to appear. Many problems not related to your heart can cause chest pain. These include: Musculoskeletal. Costochondritis is an inflammation of the tissues around the ribs that can occur from trauma or overuse injuries, or a strain of the muscles of the chest wall Respiratory. Pneumonia, collapsed lung (pneumothorax), or inflammation of the lining of the chest and lungs (pleurisy) Gastrointestinal. Esophageal reflux, heartburn, ulcers, or gallbladder disease Anxiety and panic disorders Nerve compression and inflammation Rare miscellaneous problems such as aortic aneurysm (a swelling of the large artery comi ng out of the heart) or pulmonary embolism (a blood clot in the lungs) Home care After your visit, follow these recommendations: Rest today and avoid strenuous activity. Take any prescribed medicine as directed. Be aware of any recurrent chest pain and notice any changes Follow-up care Follow up with your healthcare provider if you do not start to feel better within 24 hours, or as advised. Call 911 Call 911 if any of these occur: A change in the type of pain: if it feels different, becomes more severe, lasts longer, or begins to spread into your shoulder, arm, neck, jaw or back Shortness of breath or increased pain with breathing Weakness, dizziness, or fainting Rapid heart beat Crushing sensation in your chest When to seek medical advice Call your healthcare provider right away if any of the following occur: Cough with dark colored sputum (phlegm) or blood Fever of 100.4F(38C) or higher, or as directed by your healthcare provider Swelling, pain or redness in one leg Date Last Reviewed: 08/05/201719993249-5486 [employer]. [address] [place] [address]. All righ ts reserved. This information is not intended as a substitute for professional medical care. Always follow your healthcare professional's instructions. documented in this encounter Progress Notes Oleksandr Hyde MD - 03/17/2019 11:30 AM PSTFormatting of this note might be different f rom the original. Pulmonary Follow Up 03/17/2019 HPI Priscila Brasher is a 78 y.o. female patient of David Arias MD here today for foll ow up of severe COPD. The last pulmonary clinic visit was on 09/24/18. Since their last appointment they feel like their breathing issues have been increasing. They have had any acute pulmonary illnesses. For the last week or so Priscila reports ches t heaviness, hot sensation in her chest, weakness fatigue and worsening shortness of breath. The patient also has intermittent diaphoresis. She reports that relative recently her metoprolol was increased from 25 to 50 mg a day. Some swelling of her hands and feet are noted. The patient's weight is down 1 pound and 12 ounces since her last clinic appointment. The patient has required a prednisone taper since our last clinic appointment. Specificall y in January Jose was treated with a prednisone taper and her symptoms returned to baselin e. Likewise Priscila has not required antibiotics for a COPD exacerbation since our last clin ic appointment. The patient is currently on a daily regimen of budesonide for their COPD. They do not feel like this medication regimen is/are controlling their symptoms. They are using their Duone b nebulizer, <1 times a day. No change in SOB lately with use. Currently the patient is able to walk approximately 30 feet at their own pace on level [facility] before developing dyspnea. They are not exercising regularly. Priscila does not cough chronically and does not produce mucous. They have not had hemoptys is since our last appointment. She has been [...] History: Diagnosis Date Acid reflux disease Acute NC (HCC) 12/15/13 4 stents placed Arthritis CAD [...] nebulization Twi ce Daily., Disp: , Rfl: dexamethasone (DECADRON) 2 MG tablet, , Disp: , Rfl: fluticasone (FLONASE) 50 mcg/nasal spray, 2 sprays by Nasal route Daily., Disp: , Rfl: 99 formoterol (PERFOROMIST) 20 MCG/2ML nebulizer solution, Take 20 mcg by nebulization Ev brenda 12 hours., Disp: , Rfl: meloxicam (MOBIC) 15 mg tablet, , Disp: , Rfl: metoprolol succinate (TOPROL-XL) 50 mg 24 hr tablet, Take 50 mg by mouth Daily., Disp: , Rfl: miSOPROStol (CYTOTEC) 100 mcg tablet, , Disp: , Rfl: OnabotulinumtoxinA (BOTOX IJ), Inject as directed Every 3 months., Disp: , Rfl: oxygen, Inhale 2 L into the lungs continuous., Disp: , Rfl: predniSONE (DELTASONE) 10 mg tablet, Take 4 tablets by mouth for 2 days, then take 3 t ablets for 2 days, then take 2 tablet for 2 days, then take 1 tablet for 2 days., Disp: 20 t ablet, Rfl: 0 SUMAtriptan (IMITREX) 100 mg tablet, Take 100 mg by mouth Daily as needed., Disp: , Rf l: Immunizations: Immunization History Administered Date(s) Administered INFLUENZA 65 Y OR >, TRIVALENT HIGH-DOSE 01/19/2015, 01/15/2016, 01/22/2018 INFLUENZA PF 18 Y OR >,TRIVALENT RECOMBINANT 01/20/2012, 01/19/2013, 01/19/2014 INFLUENZA TRIV W/PRES(PED/ADOL/ADULT),MULTIDOSE 01/20/2006, 03/20/2007, 12/15/2008, , 03/12/2011, 02/15/2013 PNEUMOCOCCAL CONJUGATE 13-VALENT (PCV13) 08/19/2014 PNEUMOCOCCAL POLYSACCHARIDE 23-VALENT (PPSV23) 04/07/1996, 01/10/2011, 12/10/2012 TDAP, (ADOL/ADULT) 06/16/2010, 08/24/2011 ZOSTER, 1 DOSE (ZOSTAVAX) 10/24/2008, 01/24/2009, 06/16/2009 Objective BP 112/62 | Pulse 108 | Temp 37.4 C (99.3 F) (Temporal) | Ht 1.626 m (5' 4") | Wt 7 1.4 kg (157 lb 6.5 oz) | SpO2 96% Comment: 2L | BMI 27.02 kg/m Physical Exam Constitutional: She is oriented [...] supple. No JVD present. Cardiovascular: Normal rate, S1 normal and S2 normal. An irregularly irregular rhythm prese nt. No murmur heard. Pulmonary/Chest: No accessory muscle usage. No respiratory distress. She has decreased marleni th sounds in the right lower field and the left lower field. She has no wheezes. She has no rhonchi. She has no rales. Musculoskeletal: General: No edema. Lymphadenopathy: She has no cervical adenopathy. Neurological: She is alert and oriented to person, place, and time. Gait normal. Skin: Skin is warm and intact. No cyanosis. Nails show no clubbing. Psychiatric: Affect normal. Data: An EKG dated 03/17/2019 from 1151. Patient appears to be in normal sinus rhythm with occas ional PVC. T wave inversions are noted in leads III, aVF, aVR and aVL. Otherwise flattenin g of T waves in leads V1 through V3. No definitive acute changes. Assessment 1. Chest heaviness/pain associated with weakness, fatigue, shortness of breath and inter mittent diaphoresis. Given the patient's history of cardiac issues either myocardial ischemia or congestive hear t failure possibilities. She does not appear to be in a tacky arrhythmia. My suspicion regarding diagnoses such as anemia or pulmonary emboli are not high. Her symp toms are not consistent with an exacerbation of her emphysema. Additional blood work will be performed today. 2. COPD/emphysema severe based on symptomatology rather than degree of airflow obstructi on. Currently treated with nebulized budesonide, Perforomist and as needed DuoNeb. Status post exacerbation of her COPD in January treated with prednisone. The patient's sym ptoms returned to baseline following treatment. Priscila is up-to-date with respect to her seasonal influenza vaccination, Prevnar Pneumovax . 3. Hypoxemia stable O2 requirements. Total duration of the patient's clinic appointment was in excess of 40 minutes. Greater th an 50% of time was spent in counseling related to further evaluation of her acutely reported symptoms (above). Plan 1. BNP, basic Chem panel, CPK, CPK-MB, troponin and CBC. 2. Priscila will be contacted with the results of these laboratory studies later today. 3. If the patient's symptoms worsen she was instructed to present to a local emergency dep artment. 4. Anticipate pulmonary clinic follow-up in 6 months time. CC: David Arias MD documented in this encounter Plan of Treatment Not on filedocumented as of this encounter Procedures + +--------+ + + + | Procedure Name | Priori | Date/Time | Associated Diagnosis | Comments | | | ty | | | | + +--------+ + + + | EXTRA LAVENDER TOP | Routin | 03/17/2019 | Chest pain at rest | Results for this | | TUBE | e | 12:17 PM | Shortness of | procedure are in the | | | | PST | breath Irregular | results section. | | | | | heartbeat Chronic | | | | | | obstructive | | | | | | pulmonary disease, | | | | | | unspecified COPD | | | | | | type (HCC) | | + +--------+ + + + | CBC NO DIFFERENTIAL | Routin | 03/17/2019 | Chest pain at rest | Results for this | | | e | 12:17 PM | Shortness of | procedure are in the | | | | PST | breath | results section. | + +--------+ + + + | TROPONIN I | Routin | 03/17/2019 | Chest pain at rest | Results for this | | | e | 12:11 PM | Shortness of | procedure are in the | | | | PST | breath | results section. | + +--------+ + + + | CK TOTAL AND CK-MB | Routin | 03/17/2019 | Chest pain at rest | Results for this | | | e | 12:11 PM | Shortness of | procedure are in the | | | | PST | breath | results section. | + +--------+ + + + | ECG 12 LEAD | Routin | 03/17/2019 | Chest pain at rest | Results for this | | | e | 11:51 AM | Shortness of | procedure are in the | | | | PST | breath Irregular | results section. | | | | | heartbeat | | + +--------+ + + + documented in this encounter Results Extra Lavender Top Tube (03/17/2019 12:17 PM PST) + +-------+ + + + | Component | Value | Ref Range | Performed | Pathologist | | | | | At | Signature | + +-------+ + + + | Extra | Done | | [facility] | | | Lavender | | | [facility] | | | Top Tube | | | MEDICAL | | | [...] + | [facility] | [address] | [place] | [phone] | | [facility] | | [address] | | | - LABORATORY | | | | + + + + + B Type Natriuretic Peptide (03/17/2019 12:17 PM PST) + + + + + + | Component | Value | Ref Range | Performed | Pathologist | | | | | At | Signature | + + + + + + | BNP | 93Comment: New method in | <100 pg/mL | [facility] | | | | use as of June 03, | | [facility] | | | | 2019. Check reference | | MEDICAL | | [...] + | [facility] | [address] | [place] | [phone] | | [facility] | | [address] | | | - LABORATORY | | | | + + + + + CBC no Differential (03/17/2019 12:17 PM PST) + + + + + + | Component | Value | Ref Range | Performed | Pathologist | | | | | At | Signature | + + + + + + | White Blood | 13.3 (H) | 4.0 - 11.0 K/uL | [facility] | | | Cells | | | [facility] | | | | | | MEDICAL | | | | | | CENTER - | | | | | | LABORATORY | | + + + + + + | Red Blood | 4.85 | 3.70 - 5.20 | [facility] | | | Cells | | M/uL | [facility] | | | | | | MEDICAL | | | | | | CENTER - | | | | | | LABORATORY | | + + + + + + | Hemoglobin | 14.8 | 11.5 - 16.0 | [facility] | | | | | g/dL | [facility] | | | | | | MEDICAL | | | | | | CENTER - | | | | | | LABORATORY | | + + + + + + | Hematocrit | 46.0 | 34.0 - 47.0 % | [facility] | | | | | | [facility] | | | | | | MEDICAL | | | | | | CENTER - | | | | | | LABORATORY | | + + + + + + | MCV | 94.8 | 83.0 - 101.0 fL | [facility] | | | | | | [facility] | | | | | | MEDICAL | | | | | | CENTER - | | | | | | LABORATORY | | + + + + + + | MCH | 30.5 | 28.0 - 35.0 pg | [facility] | | | | | | [facility] | | | | | | MEDICAL | | | | | | CENTER - | | | | | | LABORATORY | | + + + + + + | MCHC | 32.2 | 32.0 - 36.0 | [facility] | | | | | g/dL | [facility] | | | | | | MEDICAL | | | | | | CENTER - | | | | | | LABORATORY | | + + + + + + | RDW-CV | 15.5 (H) | <15.0 % | [facility] | | | | | | [facility] | | | | | | MEDICAL | | | | | | CENTER - | | | | | | LABORATORY | | + + + + + + | RDW-SD | 54.7 (H) | 35.1 - 46.3 fL | [facility] | | | | | | [facility] | | | | | | MEDICAL | | | | | | CENTER - | | | | | | LABORATORY | | + + + + + + | Platelet | 296 | 140 - 440 K/uL | [facility] | | | Count | | | [facility] | | | | | | MEDICAL | | | | | | CENTER - | | | | | | LABORATORY | | + + + + + + | MPV | 11.0 | 6.5 - 12.4 fL | [facility] | | | | | | [facility] | | | | | | MEDICAL | | | | | | CENTER - | | | | | | LABORATORY | | + + + + + + | % nRBC | 0 | 0 - 2 per 100 | [facility] | | | | | WBCs | [facility] | | | | | | MEDICAL | | | | | | CENTER - | | | | | | LABORATORY | | + + + + + + | Absolute | 0.00 | 0.00 - 0.01 | [facility] | | | nRBC | | K/uL | [facility] | | | | [...] | + + + + + | [facility] | [address] | [place] | [phone] | | [facility] | | [address] | | | - LABORATORY | | | | + + + + + Troponin I (03/17/2019 12:11 PM PST) + + + + + + | Component | Value | Ref Range | Performed | Pathologist | | | | | At | Signature | + + + + + + | Troponin I | <0.01Comment: | <0.06 ng/mL | [facility] | | | | Comment:Reference | | [facility] | | | | Ranges: 0.00-0.06 = | | MEDICAL | | | | NORMAL >0.06 = | | CENTER - | | | | SUSPICIOUS FOR | | LABORATORY | | | | MYOCARDIAL DAMAGE NOTE: | | | | | | Values greater than | | | | | | 0.78 ng/mL have been | | | | | | shown to be strongly | | | | | | associated with acute | | | | | | myocardial infarction. | | | | | | The [employer] [employer] | | | | | | Cardiology (ACC) | | | | | | recommends a decision | | | | | | limit of 0.06 ng/mL for | | | | | | this assay. Results | | | | | | greater than 0.06 can | | | | | | reflect a pre-infarct | | | | | | acute coronary syndrome, | | | | | | but can also reflect | | | | | | myocardial necrosis or | | | | | | injury that is not due | | | | | | to coronary artery | | | | | | disease. Some of these | | | | | | causes are sepsis, | | | | | | hypocolemia, atrial | | | | | | fibrillation, heart | | | | | | failure, pulmonary | | | | | | embolism, myocarditis, | | | | | | myocardial contusion, | | | | | | and renal failure. The | | | | | | diagnosis of myocardial | | | | | | infarction should be | | | | | | based on a combination | | | | | | of the patient's | | | | | | clinical presentation | | | | | | and the clinical | | | | | | laboratory test results | | | | | | (especially serial | | | | | | troponin levels). | | | | + + + + + + + + | Specimen | + + | Blood | + + + + + + + | Performing | Address | City/State/Zipcode | Phone Number | | Organization | | | | + + + + + | [facility] | [address] | [place], [place] | [phone] | | [facility] | | [address] | | | - LABORATORY | | | | + + + + + CK Total with CK-MB (03/17/2019 12:11 PM PST) + +-------+ + + + | Component | Value | Ref Range | Performed | Pathologist | | | | | At | Signature | + +-------+ + + + | CK TOTAL | 36 | 34 - 145 U/L | [facility] | | | | | | [facility] | | | | | | MEDICAL | | | | | | CENTER - | | | | | | LABORATORY | | + +-------+ + + + | CK-MB | 1.8 | 0.0 - 5.0 ng/mL | [facility] | | | | | | [facility] | | | | | | MEDICAL | | | | | | CENTER - | | | | | | LABORATORY | | + +-------+ + + + | CK-MB Index | 5.0 | % | [facility] | | | [...] + | [facility] | [address] | [place] | [phone] | | [facility] | | [address] | | | - LABORATORY | | [...] | | | | | mg/dL | [facility] | | | | | | MEDICAL | | | | | | CENTER - | | | | | | LABORATORY | | + + + + + + | eGFR, | >60Comment: GLOMERULAR | >=60 | [facility] | | | non- | FILTRATION | mL/min/1.73m2 | [facility] | | | [place] | RATE,ESTIMATED | | MEDICAL | | | | mL/min/1.09t1Vmyw than | | CENTER - | | [...] | | ine Ratio | | | [facility] | | [...] [address] | [place] | [phone] | | [facility] | | [address] | | | - LABORATORY | | | | + + + + + ECG 12 lead (03/17/2019 11:51 AM PST) + + + + + + | Component | Value | Ref Range | Performed | Pathologist | | | | | At | Signature | + + + + + + | VENTRICULAR | 85 | BPM | [facility] | | | RATE EKG | | | | | + + + + + + | ATRIAL RATE | 85 | BPM | [facility] | | + + + + + + | P-R | 134 | ms | [facility] | | | INTERVAL | | | | | + + + + + + | QRS | 98 | ms | [facility] | | | DURATION | | | | | + + + + + + | Q-T | 350 | ms | [facility] | | | INTERVAL | | | | | + + + + + + | Q-T | 416 | ms | [facility] | | | INTERVAL | | | | | | (CORRECTED) | | | | | + + + + + + | P WAVE AXIS | 70 | degrees | [facility] | | + + + + + + | QRS AXIS | -2 | degrees | [facility] | | + + + + + + | T AXIS | 24 | degrees | [facility] | | + + + + + + | INTERPRETAT | Sinus rhythm with | | [facility] | | | ION TEXT | occasional premature | | | | | | ventricular | | | | | | complexesSeptal infarct | | | | | | , age | | | | | | undeterminedNonspecific | | | | | | T wave abnormality | | | | | | Inferior leadsAbnormal | | | | | | ECGNo previous ECGs | | | | | | availableConfirmed by | | | | | | JONNATHAN CHAN MD ([id number]) | | | | | | on 03/19/2019 7:05:33 AM | | | | | | | | | | + + + + + + + + | Specimen | + + | | + + + + + | Narrative | Performed At | + + + | | | + + + + +---------+ + + | Performing | Address | City/State/Zipcode | Phone Number | | Organization | | | | + +---------+ + + | [facility] | | | | + +---------+ + + documented in this encounter Visit Diagnoses + + | Diagnosis | + + | Shortness of breath - Primary | + + | Chest pain at rest Chest pain, unspecified | + + | Irregular heartbeat Cardiac dysrhythmia, unspecified | + + | Chronic obstructive pulmonary disease, unspecified COPD type (HCC) | + + documented in this encounter
--- OUTSIDE RECORDS SUMMARY | ~2019-12-11 | XMS | Encounter Summary ---
Demographics + + + | Address | [address] | | | [place] [address] | + + + | Home Phone [...] Team Providers + +------+ + | Care Label Machine Operator Name | Role | Phone | + +------+ + | David Arias MD | PCP | | + +------+ + Encounter Details +--------+---------+ + + + | Date | Type | Department | Care Team | Description | +--------+---------+ + + + | 11/24/ | Surgery | [facility] | Pooja Owens, | IMPLANT - LOOP | | 2013 | | MED CTR OR INTRA OP | MD [address] | RECORDER - [employer] | | | | [address] | [place], | | | | | [place], [place] | [place] [address] | | | | | [address] | [phone] | | | | | [phone] | | | +--------+---------+ + + + [...] 0 | | | | (VITAMIN D3) 08723 | mouth Once a week. | | [...] Tachycardia Chest discomfort CHF (congestive heart failure) ([facility]) CURRENT MEDICATIONS Outpatient Encounter Prescriptions as of [...] po unding or palpitations. Dr. Call, her applications developer stating that the symptom could be fro [...] She is in a class II of [place] [employer] functional class. There are no si gns and symptoms of overt congestive heart failure. There is no fluid retention on physica l examination. 2. Chest pressure and shortness of breath on exertion: A. She had a left heart catheterization done at [facility] in 2008. She w as told her [...] refuse. Electronically signed by: Pooja Owens MD [facility] 11/19/2013 10:30 Portions of this chart may have been created with [employer] voice recognition software. Occasi onal wrong-word or [...] Age: 73 y.o. Gender: female 11/24/13 at 16:49 Narrative Interpretation: Sinus rhythm. Normal axis. Normal intervals. Electronically si gned by Ramirez Singh MD at 11/25/2013 7:11 AM PDTONBASE SCAN [facility] - 11/25/2013 12:00 AM P DT NBASE SCAN [facility] - 014 12:00 AM PDT NBASE SCAN [facility] - 11/25/2013 12:00 AM PDT P Pooja [...] kept stable during procedure. The [employer] device customer response representative was present in the operating room. [...] tolerated the procedure well. DEVICE INFORMATION: A. Trekea loop recorder, model #: [id number], serial #: [id number]. DEVICE SETTINGS: VT: 340 ms, 60 beats. Fast VT: 260 ms, and 30/40 beats. Bradycardia: 1500 ms, a 4 beats. Asystole: 3 seconds. Pooja Owens MD 11/24/2013 15:50 docu mented in this encounter Miscellaneous Notes Plan of Care - [facility] SCAN [facility] - 11/25/2013 12:00 AM PDT iscellaneous - [facility] SCAN [facility] - 11/25/2013 12:00 AM PDTElec tronically signed [...] 11/24/2013 | Palpitations | | | RECORDER ([id number]) | | 3:05 PM | Dizziness and | | | | | PDT | giddiness | | + +--------+ + + + documented in this encounter Results ECG 12 lead (11/25/2013 7:11 AM PDT) + + + | Narrative | Performed At | + + + | Ramirez Singh MD 11/25/2013 7:11 Adult ECG Report | | | Name: Priscila rBasher Age: 73 y.o. Gender: female 11/24/13 at [...] + | MISCELLANEOUS LAB | | | [phone] | + +---------+ + + | MISCELANIOUS LAB | | | [phone] | + +---------+ + + documented in this encounter Visit Diagnoses + + | Diagnosis | + + | Palpitations | + + | Dizziness and giddiness | + + documented [...] +---+---+ | | | +---+---+ + +-------+ +--------+---+ + | lidocaine (PF) 0.5% injection | Given | 11/25/19 | 50 mLs | | Surgical | | PRN, Starting 11/24/13 at | | 14 3:37 | | | Site | | 1537, Intra-op | | PM PDT | | | | + +-------+ +--------+---+ + +---+---+ | | | +---+---+ + +-------+ +------+---+---+ | metoclopramide (REGLAN) 5 mg/mL | Given | 11/25/19 | 5 mg | | | | injection 5 mg 5 mg, | | 14 5:00 | | | | | Intravenous, EVERY 6 HOURS PRN, | | PM PDT | | | | | Nausea, Vomiting, Starting Wed | | | | | | | [...] PDT | | | | | Starting Fri11/24/13 at 1626, | | | | | | | Post-op/Phase II | | | | | | + +-------+ +------+---+---+ +---+---+ | | | +---+---+ documented in this encounter
--- OUTSIDE RECORDS SUMMARY | ~2019-12-11 | XMS | Encounter Summary ---
Demographics + + + | Address | [address] | | | [place] [address] | + + + | Home Phone | | + + + | Preferred Language | Unknown | + + + | Marital Status | Single | + + + | Bahai Affiliation | Unknown | + + + [...] Team Providers + +------+ + | Care Clinical Auditor Name | Role | Phone | + +------+ + PCP | Unavailable | + +------+ + Encounter Details +--------+ + + + + | Date | Type | Department | Care Team | Description | +--------+ + + + + | 01/25/ | Hospital | [facility] | Oleksandr Hyde, | | | 2010 | Encounter | MED CTR GENERIC OP | MD [address] | | | | | CONV DEPT [address] | [place], [place] | | | | | [place], | [address] | | | | | [place] [address] | | | | | | [phone] | | | +--------+ + + + [...] documented as of this encounter Miscellaneous Notes Pulmonary Function - Oleksandr Hyde MD - 01/25/2011 12:56 PM PDTDATE: 02/22/2011 PULMONARY FUNCTION TEST SPIROMETRY: The prebronchodilator FVC is 3.55, 117% of predicted. The FEV1 2.04 , 88% of p redicted. The FEV1 to FVC ratio 58%. Following the inhalation of bronchodilators, the patie nt's FEV1 munira to 2.10, 90% of predicted. This represents 60 mL of improvement or 3%. LUNG VOLUMES: The total lung capacity is 6.29, 121% of predicted. Residual volume is 2.74, 125% of predicted. DIFFUSION: The uncorrected DLCO was 12.9, 54% of predicted. When corrected for the patient 's hemoglobin, the value falls to 12.5, 52% of predicted. INTERPRETATION: DESPITE NORMAL ABSOLUTE FEV1 AND FVC THE FLOW VOLUME LOOP IS CONSISTENT WI TH A COMPONENT OF AIR FLOW OBSTRUCTION. LUNG VOLUMES SHOW BORDERLINE GAS TRAPPING. THERE IS A MODERATE DIFFUSION ABNORMALITY. GIVEN THE PATIENT'S SMOKING HISTORY AND APPEARANCE OF TH E FLOW VOLUME LOOP, THESE PULMONARY FUNCTION TESTS ARE MOST LIKELY CONSISTENT WITH EARLY ST AGE EMPHYSEMA. DICTATED BY: Oleksandr Hyde MD Pulmonary / Critical Care JOB #: [id number] EXT JOB #:[id number] <Electronicall y Signed by Oleksandr Hyde MD> 02/24/11 1620 Pulmonary Function - Oleksandr Hyde MD - 01/25/2011 12:56 PM PDTDATE: 01/25/2011 PULMONARY FUNCTION TEST SPIROMETRY: The prebronchodilator FVC is 3.55, 117% of predicted. The FEV1 2.04, 88% of pre dicted. Th e FEV1/FVC ratio is 58%. Following bronchodilators, FEV1 munira to 2.10, 90% of pr edicted. This represe nts 160 mL of improvement, or 6%. LUNG VOLUMES: The total lung capacity is 6.29, 121% of predicted. Residual volume is 2.74, 125% of pr edicted. DIFFUSION: The uncorrected DLCO was 12.9, 54% of predicted. When corrected for the patient' s hemoglob in, the DLCO is 12.5, 52% of predicted. INTERPRETATION: Though the actual FVC and FEV1 values are within normal limits, the ratio a nd flow vo lume loop suggests a component of airflow obstruction. Lung volumes also suggest gas trapping. There is a moderate diffusion abnormality. Given the patient's smoking histo ry, these pulmonary function te sts are likely consistent with obstructive lung disease in the form of emphysema. Based on the Gold c riteria, emphysema would be classified as stage 1, (mild). DICTATED BY: Oleksandr Hyde MD Pulmonary / Critical Care JOB #: [id number] EXT JOB #:[id number] <Electronicall y Signed by Oleksandr Hyde MD> 02/04/11 0720 documented in this encounter Plan of Treatment Not on filedocumented as of this encounter Visit Diagnoses Not on filedocumented in this encounter"
--- OUTSIDE RECORDS SUMMARY | ~2019-12-11 | XMS | Encounter Summary ---
Demographics + + + | Address | [address] | | | [place] [address] | + + + | Home Phone | | + + + | Preferred Language | Unknown | + + + | Marital Status | Single | + + + | Taoist Affiliation | Unknown | + + + [...] Team Providers + +------+ + | Care Economics Lecturer Name | Role | Phone | + +------+ + | David Arias MD | PCP | | + +------+ + Reason for Visit +--------+ + | Reason | Comments | +--------+ + | COPD | Last seen 05/28/16/PFT | +--------+ + Encounter Details +--------+---------+ + + + | Date | Type | Department | Care Team | Description | +--------+---------+ + + + | 04/01/ | Office | [facility] | Oleksandr Hyde, | Centrilobular | | 2018 | Visit | PULMONARY [address] | MD [address] | emphysema (HCC) | | | | [place], | [place], [place] | (Primary Dx); | | | | [place] [address] | [address] | Chronic obstructive | | | | [phone] | | pulmonary disease, | | | | | | unspecified COPD | | | | | | type (HCC); | | | | | | Hypoxemia | +--------+---------+ + + + Social History [...] + + + | Blood Pressure | 110/62 | 04/01/2018 11:30 AM | | | | | PST | | + + + + + | Pulse | 97 | 04/01/2018 11:30 AM | | | | | PST | | + + + + + | Temperature | - | - | | + + + + + | Respiratory Rate | - | - | | + + + + + | Oxygen Saturation | 96% | 04/01/2018 11:30 AM | 2L Cont | | | | PST | | + + + + + | Inhaled Oxygen | - | - | | | Concentration | | | | + + + + + | Weight | 70 kg (154 lb 5.2 | 04/01/2018 11:30 AM | | | | oz) | PST | | + + + + + | Height | 165.1 cm (5' 5") | 04/01/2018 11:30 AM | | | | | PST | | + + + + + | Body Mass Index | 25.68 | 04/01/2018 11:30 AM | | | | | PST | | + + + + + documented in this encounter Patient Instructions Patient Instructions Oleksandr Hyde MD - 04/01/2018 11:30 AM PST COPD Flare You have had a flare-up [...] worse Dizziness or weakness Date Last Reviewed: 12/07/201519993690-[address] [employer] [place] [address]. All [facility] ts reserved. This information is not intended as a substitute for professional medical care. Always follow your healthcare professional's instructions. documented in this encounter Progress Notes Oleksandr Hyde MD - 04/01/2018 11:30 AM PSTFormatting of this note might be different f rom the original. Pulmonary Follow Up 04/01/2018 HPI Priscila Brasher is a 77 y.o. female patient of David rAias MD here today for foll ow up of presumptive COPD based primarily on the patient's chest x-ray and smoking history r ather than evidence of airflow obstruction. The last pulmonary clinic visit was on 05/28/16 . Since their last appointment they feel lik e their breathing issues have been increasing. For unclear reasons Priscila did not keep her follow-up appointment in July 2016. In addit ion ever since the patient's last clinic appointment she believes that she has not been usin g as needed DuoNeb They have not had any acute pulmonary illnesses. The patient has not required a prednisone taper since our last clinic appointment. Likewise Priscila has not required antibiotics for a COPD exacerbation since our last clinic appointment. The patient is currently on a daily regimen of budesonide and Performistor their COPD. The y do not feel like this medication regimen is/are controlling their symptoms. Currently the patient is able to walk 100 feet at their own pace on level ground before dev eloping dyspnea. They are exercising regularly. Their typical exercise consists of pool exer cises at pool. Priscila are not enrolled in cardiac/pulmonary rehabilitation. They have comp leted pulmonary rehabilitation in the past (Patient believes approximately 2 years ago). Priscila does cough chronically and does produce mucous for the last year. The mucous is gre en in color. They have not had hemoptysis since our last appointment. She has been evaluated for nocturnal oxygen. They currently are using nocturnal oxygen. Mode oakley is currently on 2 PM at night while sleeping. They report excellent compliance. They have been evaluated for daytime oxygen and do use it. They are currently on 2 3 LPM with exerti on and 2 LPM at rest. They have not reported recent symptoms of nasal congestion, runny nose or post nasal drip. The patient have received this year's influenza vaccination. They are up to date with thei r Pneumovax and Prevnar 13. The patient is not using tobacco. Past Medical History Past Medical History: Diagnosis Date Acid reflux disease Acute TX (HCC) 12/15/13 4 stents placed Arthritis Depression [...] Toxoids Hives Medications: Current Outpatient Prescriptions: albuterol-ipratropium (DUONEB) 2.5-0.5 mg/3 mL SOLN, Take 3 mLs by nebulization every 4 hours as needed (shortness of breath)., Disp: 360 mL, Rfl: 11 amitriptyline (ELAVIL) 25 mg tablet, Take one tablet at bedtime, Disp: , Rfl: 99 aspirin 81 mg EC tablet, Take 81 mg by mouth Daily., Disp: , Rfl: atorvaSTATin (LIPITOR) 40 mg tablet, Take one tablet at bedtime, Disp: , Rfl: budesonide (PULMICORT) 0.5 mg/2 mL nebulizer solution, Take 0.5 mg by nebulization Twi ce Daily., Disp: , Rfl: fluticasone (FLONASE) 50 mcg/nasal spray, 2 sprays by Nasal route Daily., Disp: , Rfl: 99 formoterol (PERFOROMIST) 20 MCG/2ML nebulizer solution, Take 20 mcg by nebulization Ev brenda 12 hours., Disp: , Rfl: metoprolol succinate (TOPROL-XL) 25 mg 24 hr tablet, Take 1.5 tablets by mouth Daily., Disp: 45 tablet, Rfl: 6 miSOPROStol (CYTOTEC) 200 MCG tablet, Take one tablet daily, Disp: , Rfl: 3 nitroglycerin (NITROSTAT) 0.4 mg SL tablet, Place 0.4 mg under the tongue as needed fo r Chest pain., Disp: , Rfl: OnabotulinumtoxinA (BOTOX IJ), Inject as directed Every 3 months., Disp: , Rfl: oxygen, Inhale 2 L into the lungs continuous., Disp: , Rfl: No current facility-administered medications for this visit. Immunizations: Immunization History Administered Date(s) Administered INFLUENZA 65 Y OR >, TRIVALENT HIGH-DOSE 01/19/2015, 01/15/2016, 01/22/2018 INFLUENZA PF 18 Y OR >,TRIVALENT RECOMBINANT 01/20/2012, 01/19/2013, 01/19/2014 PNEUMOCOCCAL CONJUGATE 13-VALENT (PCV13) 08/19/2014 PNEUMOCOCCAL POLYSACCHARIDE 23-VALENT (PPSV23) 04/07/1996, 01/10/2011, 12/10/2012 TDAP, (ADOL/ADULT) 06/16/2010, 08/24/2011 ZOSTER, 1 DOSE (ADULT) 10/24/2008, 01/24/2009, 06/16/2009 Objective BP 110/62 | Pulse 97 | Ht 1.651 m (5' 5") | Wt 70 kg (154 lb 5.2 oz) | SpO2 96% Comment : 2L Cont | BMI 25.68 kg/m Physical Exam Constitutional: She is oriented [...] show no clubbing. Psychiatric: Affect normal. Data: Pulmonary function tests were performed on 04/01/18 and were reviewed with the patient rosario neha. They show postbronchodilator FEV1 of 1.72, 80% of predicted. The patient's FEV1/FVC is 62% following bronchodilators. Diffusion capacity is 9.2, 40% of predicted. Imaging a CT scan of the chest from 01/28/18 is notable for bibasilar atelectasis and sever e upper lung zone predominant centrilobular emphysema. No evidence of pulmonary emboli. Assessment 1. Centrilobular emphysema noted on CT imaging. Severe extent noted. Significant prior smoking history. 2. COPD related to tobacco use and imaging rather than significant airflow obstruction. Based on the patient's symptoms rather severe COPD appears to be present though based on he r FEV1 the severity of the COPD would be characterized as Gold stage I. Priscila is currently using Performist and budesonide. I suggested that she reinitiate albu terol/ipratropium. The patient has participated in pulmonary rehab in the past. She is recovering from a knee surgery. We will reconsider reinitiating pulmonary rehab if significant symptoms persist. Priscila is up-to-date with respect to her seasonal influenza vaccination, Prevnar and Pneum ovax. 3. Hypoxemia increased O2 requirements since the patient's last clinic appointment in 2016. Total duration of the patient's clinic appointment was in excess of 30 minutes. Greater th an 50% of the time was spent in counseling related to COPD assessment, prognosis and treatme nt. Plan 1. Reinitiate albuterol/ipratropium via nebulizer up to every 4 hours as needed for shortn ess of breath. 2. Continue budesonide and Performist as described above. 3. Pulmonary clinic follow-up appointment to assess the status of the patient's symptoms i n 4 weeks' time. CC: David Arias MD documented in this encounter Plan of Treatment Not on filedocumented as of this encounter Visit Diagnoses + + | Diagnosis | + + | Centrilobular emphysema (HCC) - Primary | + + | Chronic obstructive pulmonary disease, unspecified COPD type (HCC) | + + | Hypoxemia | + + documented in this encounter
--- OUTSIDE RECORDS SUMMARY | ~2019-12-11 | XMS | Encounter Summary ---
Demographics + + + | Address | [address] | | | [place] [address] | + + + | Home Phone | | + + + | Preferred Language | Unknown | + + + | Marital Status | Single | + + + | Judaism Affiliation | Unknown | + + + | Race | White | + + + | Ethnic Group | Not or | + + + Author + + + | Author | [facility] | | | and [place] | + + + | Organization | [facility] | | | and [...] Team Providers + +------+ + | Care Junior Architect Name | Role | Phone | [...] | | | IMAGING [address] | [place] | | | | | [address] [place] | [place] [address] | | | | | [place] [address] | | | | | | [phone] | | | +--------+ + + + [...] XR CHEST AP PORTABLE | Routin | 01/28/2018 | | Results for this | | | e | 2:00 PM | | procedure are in the | | | | PDT | | results section. | + +--------+ + + + documented in this encounter Results XR Chest AP Portable (01/28/2018 2:00 PM PDT) + + | Specimen | [...]
--- OUTSIDE RECORDS SUMMARY | ~2019-12-11 | XMS | Encounter Summary ---
Demographics + + + | Address | [address] | | | [place] [address] | + + + | Home Phone [...] Author + + + | Author | [facility] | | | and [place] | + + + | Organization | [facility] | | | [...] Team Providers + +------+ + | Care Mechanical Expert Name | Role | Phone | + +------+ + PCP | Unavailable | + +------+ + Encounter Details +--------+ + + + + | Date | Type | Department | Care Team | Description | +--------+ + + + + | 03/08/ | Hospital | [facility] | Oleksandr Hyde, | | | 2010 | Encounter | MED CTR XRAY [address] | MD [address] | | | | | [place] | [place], [place] | | | | | [place] [address] | [address] | | | | | [phone] | | | +--------+ + + + [...] + + + | ECHO COMPLETE | | 03/08/2011 | | Results for this | | | | 2:06 PM | | procedure are in the | | | | PST | | results section. | + +--------+ + + + documented in this encounter Results ECHO Complete (03/08/2011 2:06 PM PST) + + | Specimen | + + | | + + + + + | Narrative | Performed At | + + + | [facility] Diagnostic [facility] Department | [facility] | [address] | [facility] | | E C H O C A R D | DIAG IMG | | I O G R A P H Y R E P O R T HEIGHT: 65" | | | WEIGHT: 139# DESKTOP SUPPORT MANAGER: BHASKAR REFERRING DR: | | | LUIGI MAHONEY DR: MJ DIAGNOSIS: CHEST PAIN, PULM | | | HTN | | | | | | M E A S U R E M E N T S | | | Aortic Root: 34 mm LV Diameter-diastole: | | | 49 mm Aortic Cusp Sep: 17 mm LV | | | Diameter--systole: 34 mm LA: 42 mm | | | Fractional Shortenin % IVS--diastole: | | | 9 mm PFV Aortic Valve: IVS--systole: | | | 11 mm MPG Mitral Valve: mmHg | | | LVPW--diastole: 8 mm PFV TR Jet: | | | 2.49 m/s LVPW--systole: 12 mm RA/RV | | | PP mmHg | | | | | | ECHOCARDIOGRAM, 03/08/2011 CLINICAL HISTORY: CHEST PAIN, | | | PULMONARY HYPERTENSION. TECHNICAL: Quality of the study is good. | | | HEMODYNAMICS: The patient was in underlying sinus rhythm | | | throughout the procedure with a ventricular rate of 70. RESULTS | | | CHAMBERS: The left ventricle is of normal end-diastolic and | | | end-systolic dimensions with normal wall thickness and regional wall | | | motion. LVEF is calculated at 75% by the biplane method. The left | | | atrium is mildly enlarged. The right atrium is of normal size. Right | | | ventricle is of normal size and systolic function. VALVES: | | | Aortic valve is a normal trileaflet valve with good opening. There is | | | no significant stenosis or insufficiency noted. Mitral valve is | | | normal without any significant thickening or prolapse. There is mild | | | regurgitation seen. Tricuspid valve shows mild regurgitation with | | | peak velocity of 2.5 meters per second consistent with RV systolic | | | pressures of 30 to 35 mmHg which is mildly elevated. Pulmonic valve | | | is normal without any insufficiency seen. MISCELLANEOUS: Aortic | | | root measures at 34 mm. Pericardium is normal without a pericardial | | | effusion. Inferior vena cava is of normal size with normal | | | respiratory collapse consistent with normal right atrial pressures. | | | IMPRESSION: 1. NORMAL LEFT VENTRICULAR SIZE AND SYSTOLIC FUNCTION | | | WITH LVEF OF 75%. 2. MILD MITRAL AND TRICUSPID REGURGITATION. | | | 3. MILD PULMONARY HYPERTENSION. 4. 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 Dictated Date/Time: 03/10/2011 16:18 | | | Transcribed Date/Time: 03/10/2011 17:09 Developer Automatic: | | | <Electronically Signed by Shiloh Cox MD> 03/11/11 1549 | | + + + + + | Procedure Note | + + | Jerrell, Rad Conversion - 05/14/2013 4:19 PM [facility] | | Diagnostic Imaging Department | | [address] [facility] | | | | | | | | E C H O C A R D I O G R A P H Y R E P O R T | | | | | | HEIGHT: 65" WEIGHT: 139# DESKTOP SUPPORT MANAGER: SMZ | | REFERRING DR: LUIGI MAHONEY DR: MJ | | | | DIAGNOSIS: CHEST PAIN, PULM HTN | | | | | | M E A S U R E M E N T S | | | | Aortic Root: 34 mm LV Diameter-diastole: 49 mm | | Aortic Cusp Sep: 17 mm LV Diameter--systole: 34 mm | | LA: 42 mm Fractional Shortenin % | | IVS--diastole: 9 mm PFV Aortic Valve: | | IVS--systole: 11 mm MPG Mitral Valve: mmHg | | LVPW--diastole: 8 mm PFV TR Jet: 2.49 m/s | | LVPW--systole: 12 mm RA/RV PP mmHg | | | | | | | | ECHOCARDIOGRAM, 03/08/2011 | | | | CLINICAL HISTORY: CHEST PAIN, PULMONARY HYPERTENSION. | | | | TECHNICAL: Quality of the study is good. | | | | HEMODYNAMICS: The patient was in underlying sinus rhythm throughout the | | procedure with a ventricular rate of 70. | | | | RESULTS | | CHAMBERS: The left ventricle is of normal end-diastolic and end-systolic | | dimensions with normal wall thickness and regional wall motion. LVEF is | | calculated at 75% by the biplane method. The left atrium is mildly enlarged. | | The right atrium is of normal size. Right ventricle is of normal size and | | systolic function. | | | | VALVES: Aortic valve is a normal trileaflet valve with good opening. There is | | no significant stenosis or insufficiency noted. Mitral valve is normal without | | any significant thickening or prolapse. There is mild regurgitation seen. | | Tricuspid valve shows mild regurgitation with peak velocity of 2.5 meters per | | second consistent with RV systolic pressures of 30 to 35 mmHg which is mildly | | elevated. Pulmonic valve is normal without any insufficiency seen. | | | | MISCELLANEOUS: Aortic root measures at 34 mm. Pericardium is normal without a | | pericardial effusion. Inferior vena cava is of normal size with normal | | respiratory collapse consistent with normal right atrial pressures. | | | | IMPRESSION: | | 1. NORMAL LEFT VENTRICULAR SIZE AND SYSTOLIC FUNCTION WITH LVEF OF 75%. | | | | 2. MILD MITRAL AND TRICUSPID REGURGITATION. | | | | 3. MILD PULMONARY HYPERTENSION. | | | | 4. GRADE 1 LEFT VENTRICULAR DIASTOLIC DYSFUNCTION. | | | | Dictated Date/Time: 03/10/2011 16:18 | | Transcribed Date/Time: 03/10/2011 17:09 | | Developer Automatic: | | <Electronically Signed by Shiloh Cox MD> 03/11/11 1549 | + + + +---------+ + + | Performing | Address | City/State/Zipcode | Phone Number | | Organization | | | | + +---------+ + + | [facility] | | | | | [place] | | | | + +---------+ + + documented in this encounter Visit Diagnoses Not on filedocumented in this encounter
--- OUTSIDE RECORDS SUMMARY | ~2019-12-11 | XMS | Encounter Summary ---
Demographics + + + | Address | [address] | | | [place] [address] | + + + | Home Phone [...] Providers + +------+ + | Care Computer Patternmaker Name | Role | Phone | + +------+ + | David Arias MD | PCP | | + +------+ + Reason for Visit + + + | Reason | Comments | + + + | Follow-up | One month with Test results | + + + | Shortness of Breath | | + + + | Chest Pressure | | + + + Encounter Details +--------+---------+ + + + | Date | Type | Department | Care Team | Description | +--------+---------+ + + + | 08/04/ | Office | [facility] | Sayda, | CHF (congestive | | 2013 | Visit | CARDIOLOGY [address] | DAVID Ferrara [address] | heart failure), | | | | [place], | [place], | unspecified failure | | | | [place] [address] | [place] [address] | chronicity, | | | | [phone] | [phone] | unspecified type | | | | | | ([facility]) (Primary Dx); | | | | | | Chest discomfort; | | | | | | Tachycardia | +--------+---------+ + + + Social History [...] + + + | Blood Pressure | 128/64 | 08/04/2013 7:30 AM | | | | | PDT | | + + + + + | Pulse | 68 | 08/04/2013 7:30 AM | | | | | PDT | | + + + + + | Temperature | - | - | | + + + + + | Respiratory Rate | 18 | 08/04/2013 7:30 AM | | | | | PDT | | + + + + + | Oxygen Saturation | - | - | | + + + + + | Inhaled Oxygen | - | - | | | Concentration | | | | + + + + + | Weight | 63.5 kg (140 lb) | 08/04/2013 7:30 AM | | | | | PDT | | + + + + + | Height | 162.6 cm (5' 4") | 08/04/2013 7:30 AM | | | | | PDT | | + + + + + | Body Mass Index | 24.03 | 08/04/2013 7:30 AM | | | | | PDT | | + + + + + documented in this encounter Progress Notes Alem Mensah ARNP - 08/04/2013 7:32 AM PDTFormatting of this note might be different f rom the original. PATIENT NAME: Priscila Brasher : 1940: AGE: 73 y.o. PRIMARY CARE: David Arias MD OUTPATIENT FOLLOW UP VISIT Date of Service: 08/04/2013 HISTORY OF PRESENT ILLNESS: Priscila Brasher is a 73 y.o. female with a history of chronic obstructive pulmonary disea se, obstructive sleep apnea, remote smoking, hypertension, history of a pulmonary embolism o n chronic warfarin. She is being seen today for follow up on test results and chest pressur e. She was last seen 06/30/2013 at which time echocardiogram, stress test and Holter monitor w ere ordered and she was to follow up in 4-6 weeks. Since that time, patient has not had any more episodes of palpitations that she can recall. She only seems to notice that she needs to "slowed down and take a couple deeper breaths". Patient states that she has had problem s with palpitations for years probably more than 10 years and she probably has become accust omed to feeling them. She denies lightheadedness, dizziness, palpitations, or leg swelling. MEDICAL, SURGICAL, AND PERSONAL HISTORY Past Medical, Surgical, Family, and Social History are reviewed in EPIC. 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 cyclobenzaprine (FLEXERIL) 5 MG tablet Take 5 mg by mouth 3 times daily as needed. diclofenac (VOLTAREN) 75 mg EC tablet Fluticasone Propionate (FLONASE NA) once daily metoclopramide [...] Tetanus Toxoids ROS Review of Systems Constitutional: Negative for malaise/fatigue. Respiratory: Positive for shortness of breath. Cardiovascular: Negative for chest pain, palpitations and leg swelling. Neurological: Negative for dizziness and weakness. OBJECTIVE: PHYSICAL EXAM BP 128/64 | Pulse 68 | Resp 18 | Ht 1.626 m (5' 4") | Wt 63.504 kg (140 lb) | BMI 24.02 kg/ m2 Physical Exam Constitutional: She appears [...] not e xhibit a depressed mood. ECG: Not done this visit. LAB RESULTS: LIPID No results found for this basename: chol, trig, ldlcalc, hdl, ldl, calculated, cholhdl, ldl ex, hdlex, trigex, cholex CHEMISTRY Lab Results Component Value Date GLU 149* 05/19/2013 NA 137 05/19/2013 K 4.0 05/19/2013 CL 107 05/19/2013 CO2 23 05/19/2013 CALCIUM 8.5 05/19/2013 BUN 8 05/19/2013 EGFREX >60 05/19/2013 CREEX 0.50 05/19/2013 HEMATOLOGY Lab Results Component Value Date HGBEX 12.4 06/03/2013 I reviewed records from [facility] for office visit on 06/30/2013 a lso echocardiogram, Holter and stress test were reviewed. ASSESSMENT: 1. New onset chest pressure and shortness of breath on exertion: A. She had a left heart catheterization done at [facility] in 2008. She w as told [...] tightness and trouble breathing when she walks. F. Today, patient is doing well from cardiac standpoint. She has had no further chest ti ghtness or increase dyspnea. 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 There are no signs and symptoms of overt congestive heart failure. There is no fluid retention on physical examination. 2. Tachycardia: A. On 06/11/13, patient had a walking oximetry and was found to have a tachycardia with hear t rate of 140's beats per minute. At that moment, patient doesn't recall having any chest po unding or palpitations. Dr. Call, her customer specialist stating that the symptom could be fro [...] patient did not report any symptoms. C. Today, she has had no increase in episodes of palpitations. The plan will be to increas e metoprolol to provide better control of palpitations and higher heart rate. 3. Chronic obstructive pulmonary disease: A. The [...] She is on chronic anticoagulation. PLAN: 1. Results of all testes were reviewed with the patient and answers were given to her ques tiely. 2. Increase metoprolol succinate 37.5 mg by mouth each bedtime for better heart rate contro l. 3. Follow up appointment in 3 months or sooner if any concerns I, DAVID De Jesus, saw this patient under the direct supervision of Pooja Owens MD Portions of this report were transcribed using voice recognition software. Every effort wa s made to ensure accuracy; however, inadvertent computerized temper mill operator errors may be pre sent. Electronically signed by: DAVID De Jesus 08/04/2013 7:32 documented in this encounter Plan of Treatment Not on filedocumented as of this encounter Visit Diagnoses + + | Diagnosis | + + | CHF (congestive heart failure), unspecified failure chronicity, unspecified type - | | Primary | + + | Chest discomfort Other chest pain | + + | Tachycardia Tachycardia, unspecified | + + documented in this encounter
--- OUTSIDE RECORDS SUMMARY | ~2019-12-11 | XMS | Encounter Summary ---
Demographics + + + | Address | [address] | | | [place] [address] | + + + | Home Phone [...] Team Providers + +------+ + | Care Human Resources Clerk Name | Role | Phone | + [...] Closed | | Radiology | Diagnoses | Roman, | [facility] | | | | | CHF | MD Pooja | [address] | | | | | (congestive | [address] | [place], | | | | | heart | [address] | [place] | | | | | failure) | [place], | [address] | | | | | (HCC) | [place] [address] | Phone: | | | | | Procedures | Phone: | [phone] | | | | | ECHO | [phone] | Fax: | | | | | Complete | Fax: | [phone] | | | | | | [phone] | | +--------+--------+ + + + + Reason for Visit Diagnostic/Screening (Routine) +--------+--------+ + + + + | Status | Reason | Specialty | Diagnoses / | Referred By | Referred To | | | | | Procedures | Contact | Contact | +--------+--------+ + + + + | Closed | | Radiology | Diagnoses | Roman, | [facility] | | | | | CHF | MD Pooja | [address] | | | | | (congestive | [address] | [place], | | | | | heart | [address] | [place] | | | | | failure) | [place], | [address] | | | | | ([facility]) | [place] [address] | Phone: | | | | | Procedures | Phone: | [phone] | | | | | ECHO | [phone] | Fax: | | | | | Complete | Fax: | [phone] | | | | | | [phone] | | +--------+--------+ + + + + Encounter Details +--------+ + + + + | Date | Type | Department | Care Team | Description | +--------+ + + + + | 07/29/ | Hospital | [facility] | Pooja Owens, | CHF (congestive | | 2013 | Encounter | [facility] [address] | heart failure) ([facility]) | | | | [address] [place] | [place], | | | | | [place] [address] | [place] [address] | | | | | [phone] | [phone] | | | | | | | | | | | | Rambo Gould, | | | | | | Technologist | | +--------+ + + + + [...] + | ECHO COMPLETE | Routin | 07/29/2013 | CHF (congestive | Results for this | | | e | 10:46 AM | heart failure) (HCC) | procedure are in the | | | | PDT | | results section. | + +--------+ + + + documented in this encounter Results ECHO Complete (07/29/2013 10:46 AM PDT) + + | Specimen | + + | | + + + + + | Narrative | Performed At | + + + | [facility] | [place] | | STUDY DATE: 07/29/2013 PATIENT NAME: Priscila Brasher : | [facility] | | 1940 PCP: David Arias MD | [facility] | | CLINICAL HISTORY/DIAGNOSIS: CHF A [...] | | | by: Pooja Owens MD [facility] 07/29/2013 10:56 | | | Personal Banking Assistant: Ramy Hayden RDMS | | + + + + + | Procedure Note | + + | Pooja Owens MD - 07/29/2013 12:53 PM [facility] | | CENTERECHOCARDIOGRAM REPORTSTUDY DATE: 07/29/2013PATIENT NAME: Priscila Cao TappDOB: | | 1940MRN: [id number]: David Arias [facility] [place]NOSIS: CHFA | | transthoracic echocardiogram with [...] | | volume: 22 mLLA index: 13 mL/d3Pqlpxi Inflow DT: 218 msIVRT: 105 msValsalva: NOT | | NEEDEDPWDTI S wave: 7.0 cm/sPWDTI E wave: 5.6 cm/sPWDTI A wave: 9.6 cm/sE/A Ratio: | | 0.583E/E Ratio: 12.03Signed by: Pooja Owens MD [facility] 07/29/2013 10:56 | | Personal Banking Assistant: Ramy Hayden RDMS | |Vena cava: [...] | | |Signed by: Pooja Owens MD [facility] | | 07/29/2013 10:56 | | | | | |Personal Banking Assistant: Ramy Hayden RDMS | + + + + + + + | Performing | Address | City/State/Zipcode | Phone Number | | Organization | | | | + + + + + | [facility] | [address] | [place] | [phone] | | [facility] | | [address] | | | - IMAGING | | | | + + + + + documented in this encounter Visit Diagnoses + + | Diagnosis | + + | CHF (congestive heart failure) ([facility]) Congestive heart failure, unspecified | + + documented in this encounter"
--- OUTSIDE RECORDS SUMMARY | ~2019-12-11 | XMS | Encounter Summary ---
Demographics + + + | Address | [address] | | | [place] [address] | + + + | Home Phone | | + + + | Preferred Language | Unknown | + + + | Marital Status | Single | + + + | Hinduism Affiliation | Unknown | + + + [...] Team Providers + +------+ + | Care Pharmacy General Manager Name | Role | Phone | [...] [address] | | | | | [place], | [place] | | | | | [place] [address] | [address] | | | | | [phone] | | | +--------+--------+ + + + [...]
--- OUTSIDE RECORDS SUMMARY | ~2019-12-11 | XMS | Encounter Summary ---
Demographics + + + | Address | [address] | | | [place] [address] | + + + | Home Phone [...] + + + | Author | [facility] | | | and [place] | + + + | Organization | [facility] | | [...] Team Providers + +------+ + | Care Braided Band Assembler Name | Role | Phone | + +------+ + PCP | Unavailable | + +------+ + Encounter Details +--------+ + + + + | Date | Type | Department | Care Team | Description | +--------+ + + + + | 10/08/ | Abstract | [facility] | Oracio Albert | | | 2011 | | Group - [place] | MD Letitia [address] | | | | | [address] | [facility] | | | | | [address] | [place] [address] | | | | | [place] | [phone] | | | | | [address] | | | | | | [phone] | | | +--------+ + + + [...]
--- OUTSIDE RECORDS SUMMARY | ~2019-12-11 | XMS | Encounter Summary ---
Demographics + + + | Address | [address] | | | [place] [address] | + + + | Home Phone [...] Author + + + | Author | [facility] | | | and [place] | + + + | Organization | [facility] | | [...] Team Providers + +------+ + | Care Strategic Planning Manager Name | Role | Phone | + +------+ + | David Arias MD | PCP | | + +------+ + Encounter Details +--------+ + + + + | Date | Type | Department | Care Team | Description | +--------+ + + + + | 11/12/ | Orders Only | [facility] | David Arias | | | 2018 | | CONVERSION [address] | MD [place] [address] | | | | [address] | [place] | | | | | [place] | [place] [address] | | | | | [address] | [phone] | | | | | [phone] | | | +--------+ + + + [...] + | ECHO INTERPRETATION | Routin | 11/12/2017 | | Results for this | | OF OUTSIDE FILMS | e | 5:24 PM | | procedure are in the | | | | PDT | | results section. | + +--------+ + + + documented in this encounter Results ECHO Interpretation of Outside Films (11/12/2017 5:24 PM PDT) + + | Specimen | + + | | + + + + + | Impressions | Performed At | + + + | 1. The left ventricle is normal in size, wall thickness and systolic | | | function EF 60-65%. 2. The right ventricle is normal in size and | | | function. 3. Mild tricuspid regurgitation and no pulmonary | | | hypertension. 4. There is no pericardial effusion. | | + + + + + + | Narrative | Performed At | + + + | Patient Name: NATALY BRASHER Date of : 1940 | | | Performing Physician: Nenita Ac | | | | | | INDICATIONS CAD S/P STENTS IN RCA/ LAD 2014, DASHA HATHAWAY | | | EDEMA CONCLUSIONS 1. The left ventricle is normal in | | | size, wall thickness and systolic function EF 60-65%. 2. The right | | | ventricle is normal in size and function. 3. Mild tricuspid | | | regurgitation and no pulmonary hypertension. 4. There is no | | | pericardial effusion. FINDINGS -------- ECG rhythm: Sinus | | | rhythm. Study: A 2-dimensional transthoracic echocardiogram with | | | m-mode, spectral and color flow Doppler was perfomed. Study: This was | | | a technically adequate study. Left Ventricle: Overall left | | | ventricular systolic function is normal with, an EF between 60 - 65 %. | | | Left Ventricle: The left ventricle cavity size is normal. Left | | | Ventricle: Left ventricular wall thickness is normal. Left Ventricle: | | | The diastolic filling pattern indicates impaired relaxation | | | consistent with mild dysfunction (Grade I). Right Ventricle: The | | | right ventricle is normal in size and function. Left Atrium: The left | | | atrium is normal in size. Right Atrium: The right atrium is normal | | | in size. Aortic Valve: The aortic valve is trileaflet. Aortic Valve: | | | There is mild aortic valve sclerosis without stenosis. Aortic Valve: | | | There is no evidence of aortic regurgitation. Aortic Valve: The | | | aortic valve is trileaflet and appears structurally normal. Mitral | | | Valve: There is trace mitral regurgitation. Mitral Valve: Mild mitral | | | annular calcification present. Tricuspid Valve: The tricuspid valve | | | appears structurally normal. Tricuspid Valve: Mild tricuspid | | | regurgitation present. Tricuspid Valve: There is no evidence of | | | pulmonary hypertension. Tricuspid Valve: The right ventricular | | | systolic pressure (pulmonary artery systolic pressure), as measured by | | | Doppler, is 30.34mmHg. Pulmonic Valve: The pulmonic valve was not | | | well visualized. Pulmonic Valve: Trace pulmonic regurgitation. | | | Pericardium: There is no pericardial effusion. Pericardium: No | | | pleural effusion seen. IVC/Hepatic Veins: The inferior vena cava is | | | normal in size and collapses > 50 % with sniff, indicating normal | | | central venous pressures. Aorta: The aortic root, ascending aorta and | | | aortic arch are normal. MEASUREMENTS Ao asc: | | | 3.39 cm Ao sinus: 3.[address] junct: 2.95 cm IVC: 1.46 | | | cm LA Diam: 3.50 cm EDV(Teich): 60.38 ml IVSd: 1.04 cm | | | LVIDd: 3.75 cm LVPWd: 0.77 cm LVOT Area: 3.75 cm2 LVOT | | | Diam: 2.18 cm %FS: 33.02 % EF(Teich): 62.37 % ESV(Teich): | | | 22.72 ml LVIDs: 2.51 cm SV(Teich): 37.66 ml RVIDd: 2.64 | | | cm LVEF MOD A2C: 56.21 % SV MOD A2C: 40.10 ml LVEF MOD A4C: | | | 55.11 % SV MOD A4C: 46.16 ml EF Biplane: 56.81 % LVEDV MOD | | | BP: 80.57 ml LVESV MOD BP: 34.79 ml LVEDV MOD A2C: 71.34 | | | ml LVLd A2C: 7.02 cm LVEDV MOD A4C: 83.76 ml LVLd A4C: | | | 7.70 cm LVESV MOD A2C: 31.24 ml LVLs A2C: 5.97 cm LVESV MOD | | | A4C: 37.59 ml LVLs A4C: 6.19 cm LAESV(A-L): 34.27 ml LAESV | | | Index (A-L): 18.93 ml/m2 LAAs A2C: 14.13 cm2 LAESV A-L A2C: | | | 40.64 ml LALs A2C: 4.17 cm LAAs A4C: 10.60 cm2 LAESV A-L | | | A4C: 25.72 ml LALs A4C: 3.71 cm RAAs: 10.37 cm2 RAESV A-L: | | | 25.26 ml RAESV MOD: 22.61 ml RALs: 3.61 cm TAPSE: 1.88 | | | cm AV maxP.75 mmHg AV meanP.61 mmHg AV Vmax: 1.09 | | | m/s AV Vmean: 0.75 m/s AV VTI: 16.85 cm VARUN Vmax: 3.04 | | | cm2 VARUN (VTI): 3.54 cm2 AVAI (Vmax): 0.00 cm2/m2 AVAI (VTI): | | | 0.00 cm2/m2 LVOT maxP.12 mmHg LVOT meanP.38 mmHg | | | LVSI Dopp: 32.97 ml/m2 LVSV Dopp: 59.69 ml LVOT Vmax: 0.88 | | | m/s LVOT Vmean: 0.53 m/s LVOT VTI: 15.89 cm MV A Dmitriy: 0.79 | | | m/s MV Dec Telfair: 1.81 m/s2 MV DecT: 247.07 ms MV E Dmitriy: | | | 0.44 m/s MV E/A Ratio: 0.56 MV PHT: 71.65 ms MVA By PHT: | | | 3.07 cm2 Septal e': 0.03 m/s Septal E/e': 11.78 Lateral e': | | | 0.05 m/s Lateral E/e': 8.54 RAP: 5 mmHg RVSP: 30.34 | | | mmHg TR maxP.34 mmHg TR Vmax: 2.51 m/s Chauffeur: | | | DBS Authenticated by: Nenita Ac Report Date/Time: 11-12-2017 | | | 19:13:17 | | + + + + + | Procedure Note | + + | Jerrell, Rad Conversion - 11/26/2018 3:54 PM PDT Patient Name: Divina BRASHER of | | : 1940 Performing Physician: Nenita | | Osroio INDICATIONS------ | | -----CAD S/P STENTS IN RCA/ LAD 2014, SOB, LE EDEMA CONCLUSIONS 1. The left | | ventricle is normal in size, wall thickness and systolic function EF 60-65%.2. The right | | ventricle is normal in size and function.3. Mild tricuspid regurgitation and no | | pulmonary hypertension.4. There is no pericardial effusion. FINDINGS--------ECG rhythm: | | Sinus rhythm.Study: A 2-dimensional transthoracic echocardiogram with m-mode, spectral | | and color flow Doppler was perfomed.Study: This was a technically adequate study.Left | | Ventricle: Overall left ventricular systolic function is normal with, an EF between 60 - | | 65 %.Left Ventricle: The left ventricle cavity size is normal.Left Ventricle: Left | | ventricular wall thickness is normal.Left Ventricle: The diastolic filling pattern | | indicates impaired relaxation consistent with mild dysfunction (Grade I).Right | | Ventricle: The right ventricle is normal in size and function.Left Atrium: The left | | atrium is normal in size.Right Atrium: The right atrium is normal in size.Aortic Valve: | | The aortic valve is trileaflet.Aortic Valve: There is mild aortic valve sclerosis | | without stenosis.Aortic Valve: There is no evidence of aortic regurgitation.Aortic | | Valve: The aortic valve is trileaflet and appears structurally normal.Mitral Valve: | | There is trace mitral regurgitation.Mitral Valve: Mild mitral annular calcification | | present.Tricuspid Valve: The tricuspid valve appears structurally normal.Tricuspid | | Valve: Mild tricuspid regurgitation present.Tricuspid Valve: There is no evidence of | | pulmonary hypertension.Tricuspid Valve: The right ventricular systolic pressure | | (pulmonary artery systolic pressure), as measured by Doppler, is 30.34mmHg.Pulmonic | | Valve: The pulmonic valve was not well visualized.Pulmonic Valve: Trace pulmonic | | regurgitation.Pericardium: There is no pericardial effusion.Pericardium: No pleural | | effusion seen.IVC/Hepatic Veins: The inferior vena cava is normal in size and collapses | | > 50 % with sniff, indicating normal central venous pressures.Aorta: The aortic root, | | ascending aorta and aortic arch are normal. MEASUREMENTS Ao asc: 3.39 cmAo | | sinus: 3.[address] junct: 2.95 cmIVC: 1.46 cmLA Diam: 3.50 cmEDV(Teich): | | 60.38 mlIVSd: 1.04 cmLVIDd: 3.75 cmLVPWd: 0.77 cmLVOT Area: 3.75 [id number] Diam: | | 2.18 cm%FS: 33.02 %EF(Teich): 62.37 %ESV(Teich): 22.72 mlLVIDs: 2.51 | | cmSV(Teich): 37.66 mlRVIDd: 2.64 cmLVEF MOD A2C: 56.21 %SV MOD A2C: 40.10 mlLVEF | | MOD A4C: 55.11 %SV MOD A4C: 46.16 mlEF Biplane: 56.81 %LVEDV MOD BP: 80.57 | | mlLVESV MOD BP: 34.79 mlLVEDV MOD A2C: 71.34 mlLVLd A2C: 7.02 cmLVEDV MOD A4C: | | 83.76 mlLVLd A4C: 7.70 cmLVESV MOD A2C: 31.24 mlLVLs A2C: 5.97 cmLVESV MOD A4C: | | 37.59 mlLVLs A4C: 6.19 cmLAESV(A-L): 34.27 mlLAESV Index (A-L): 18.93 ml/m2LAAs | | A2C: 14.13 [id number] A-L A2C: 40.64 mlLALs A2C: 4.17 cmLAAs A4C: 10.60 [id number] | | A-L A4C: 25.72 mlLALs A4C: 3.71 cmRAAs: 10.37 [id number] A-L: 25.26 mlRAESV MOD: | | 22.61 mlRALs: 3.61 cmTAPSE: 1.88 cmAV maxP.75 mmHgAV meanP.61 mmHgAV | | Vmax: 1.09 m/Stanley Vmean: 0.75 m/Stanley VTI: 16.85 cmAVA Vmax: 3.04 cm2AVA (VTI): | | 3.54 [id number] (Vmax): 0.00 cm2/m2AVAI (VTI): 0.00 cm2/m2LVOT maxP.12 mmHgLVOT | | meanP.38 mmHgLVSI Dopp: 32.97 ml/m2LVSV Dopp: 59.69 mlLVOT Vmax: 0.88 | | m/sLVOT Vmean: 0.53 m/sLVOT VTI: 15.89 cmMV A Dmitriy: 0.79 m/sMV Dec Telfair: 1.81 | | m/s2MV DecT: 247.07 msMV E Dmitriy: 0.44 m/sMV E/A Ratio: 0.56MV PHT: 71.65 msMVA By | | PHT: 3.07 [id number] e': 0.03 m/sSeptal E/e': 11.78Lateral e': 0.05 m/sLateral | | E/e': 8.54RAP: 5 mmHgRVSP: 30.34 mmHgTR maxP.34 mmHgTR Vmax: 2.51 m/s | | Chauffeur: DBSAuthenticated by: Nenita Garc[facility]rightonLel[facility] Date/Time: 11-12-2017 19:13:17 | | IMPRESSION: 1. The left ventricle is normal in size, wall thickness and systolic | | function EF 60-65%.2. The right ventricle is normal in size and function.3. Mild | | tricuspid regurgitation and no pulmonary hypertension.4. There is no pericardial | | effusion. | |Ao sinus: 3.49 cm | |Ao st junct: 2.95 cm | |IVC: 1.46 cm | |LA Diam: 3.50 cm | |EDV(Teich): 60.38 ml | |IVSd: 1.04 cm | |LVIDd: 3.75 cm | |LVPWd: 0.77 cm | |LVOT Area: 3.75 cm2 | |LVOT Diam: 2.18 cm | |%FS: 33.02 % | |EF(Teich): 62.37 % | |ESV(Teich): 22.72 ml | |LVIDs: 2.51 cm | |SV(Teich): 37.66 ml | |RVIDd: 2.64 cm | |LVEF MOD A2C: 56.21 % | |SV MOD A2C: 40.10 ml | |LVEF MOD A4C: 55.11 % | |SV MOD A4C: 46.16 ml | |EF Biplane: 56.81 % | |LVEDV MOD BP: 80.57 ml | |LVESV MOD BP: 34.79 ml | |LVEDV MOD A2C: 71.34 ml | |LVLd A2C: 7.02 cm | |LVEDV MOD A4C: 83.76 ml | |LVLd A4C: 7.70 cm | |LVESV MOD A2C: 31.24 ml | |LVLs A2C: 5.97 cm | |LVESV MOD A4C: 37.59 ml | |LVLs A4C: 6.19 cm | |LAESV(A-L): 34.27 ml | |LAESV Index (A-L): 18.93 ml/m2 | |LAAs A2C: 14.13 cm2 | |LAESV A-L A2C: 40.64 ml | |LALs A2C: 4.17 cm | |LAAs A4C: 10.60 cm2 | |LAESV A-L A4C: 25.72 ml | |LALs A4C: 3.71 cm | |RAAs: 10.37 cm2 | |RAESV A-L: 25.26 ml | |RAESV MOD: 22.61 ml | |RALs: 3.61 cm | |TAPSE: 1.88 cm | |AV maxP.75 mmHg | |AV meanP.61 mmHg | |AV Vmax: 1.09 m/s | |AV Vmean: 0.75 m/s | |AV VTI: 16.85 cm | |VARUN Vmax: 3.04 cm2 | |VARUN (VTI): 3.54 cm2 | |AVAI (Vmax): 0.00 cm2/m2 | |AVAI (VTI): 0.00 cm2/m2 | |LVOT maxP.12 mmHg | |LVOT meanP.38 mmHg | |LVSI Dopp: 32.97 ml/m2 | |LVSV Dopp: 59.69 ml | |LVOT Vmax: 0.88 m/s | |LVOT Vmean: 0.53 m/s | |LVOT VTI: 15.89 cm | |MV A Dmitriy: 0.79 m/s | |MV Dec Telfair: 1.81 m/s2 | |MV DecT: 247.07 ms | |MV E Dmitriy: 0.44 m/s | |MV E/A Ratio: 0.56 | |MV PHT: 71.65 ms | |MVA By PHT: 3.07 cm2 | |Septal e': 0.03 m/s | |Septal E/e': 11.78 | |Lateral e': 0.05 m/s | |Lateral E/e': 8.54 | |RAP: 5 mmHg | |RVSP: 30.34 mmHg | |TR maxP.34 mmHg | |TR Vmax: 2.51 m/s | | | |Chauffeur: DBS | |Authenticated by: Nenita Ac | |Report Date/Time: 11-12-2017 19:13:17 | | | |IMPRESSION: | |1. The left ventricle is normal in size, wall thickness and systolic function EF 60-65%. | |2. The right ventricle is normal in size and function. | |3. Mild tricuspid regurgitation and no pulmonary hypertension. | |4. There is no pericardial effusion. | + + documented in this encounter Visit Diagnoses Not on filedocumented in this encounter"
--- OUTSIDE RECORDS SUMMARY | ~2019-12-11 | XMS | Encounter Summary ---
Demographics + + + | Address | [address] | | | [place] [address] | + + + | Home Phone | | + + + | Preferred Language | Unknown | + + + | Marital Status | Single | + + + | Caodaism Affiliation | Unknown | + + + | Race | White | + + + | Ethnic Group | Not or | + + + Author + + + | Author | [facility] | | | and [place] | + + + | Organization | [facility] | | [...] Team Providers + +------+ + | Care Display Card Writer Name | Role | Phone | [...] Description | +--------+--------+ + + + | 09/19/ | Refill | [facility] | Isaias Decker MD | Medication Refill | | 2020 | | CARDIOLOGY [place] [facility] | [address] | | | | | [address] | [place] [address] | | | | | [place], [place] | [phone] | | | | | [address] | | | | | | [phone] | | | +--------+--------+ + + + [...]
--- OUTSIDE RECORDS SUMMARY | ~2019-12-11 | XMS | Encounter Summary ---
Demographics + + + | Address | [address] | | | [place] [address] | + + + | Home Phone [...] | Author | [facility] | + + + | Organization | [facility] | + + + | Address | Unknown | + + + | Phone | Unavailable | + + + Support + + +---------+ + | Name | Relationship | Address | Phone | + + +---------+ + | Osorio Bourgeois | ECON | Unknown | Unavailable | + + +---------+ + Care Team Providers + +------+ + | Care Consultant Electronics Name | Role | Phone | + +------+ + | David Arias MD | PCP | | + +------+ + Encounter Details +--------+ + + + + | Date | Type | Department | Care Team | Description | +--------+ + + + + | 09/16/ | Documentati | [facility] | Oleksandr Haddad, | | | 2011 | on | Center at [facility] [address] | [address] [facility] | | | | | [address] [facility] | [place], [place] | | | | | for Health and | [address] | | | | | [facility], [facility], | [phone] | | | | | [address] [place] [address] | | | | | | [facility] [place] | | | | | | [address] | | | | | | [phone] | | | +--------+ + + + [...]
--- OUTSIDE RECORDS SUMMARY | ~2019-12-11 | XMS | Encounter Summary ---
Demographics + + + | Address | [address] | | | [place] [address] | + + + | Home Phone | | + + + | Preferred Language | Unknown | + + + | Marital Status | Single | + + + | Zoroastrian Affiliation | Unknown | + + + | Race | White | + + + | Ethnic Group | Not or | + + + Author + + + | Author | [facility] | | | and [place] | + + + | Organization | [facility] | | | and [...] Team Providers + +------+ + | Care Accounts Payable Clerk Name | Role | Phone | + +------+ + | David Arias MD | PCP | | + +------+ + Reason for Visit Diagnostic/Screening (Routine) +--------+--------+ + + + + | Status | Reason | Specialty | Diagnoses / | Referred By | Referred To | | | | | Procedures | Contact | Contact | +--------+--------+ + + + + | Closed | | Radiology | Diagnoses | Roman, | [facility] | | | | | Chest | MD Pooja | Medicine | | | | | heaviness | [address] | [address] | | | | | Other chest | [address] | [place], | | | | | pain | [place], | [place] | | | | | Procedures | [place] [address] | [address] | | | | | [place] [facility] | Phone: | Phone: | | | | | Stress Test | [phone] | [phone] | | | | | (Vasodilator | Fax: | Fax: | | | | | ) | [phone] | [phone] | +--------+--------+ + + + + Encounter Details +--------+ + + + + | Date | Type | Department | Care Team | Description | +--------+ + + + + | 07/29/ | Hospital | [facility] | Pooja Owens, | Chest heaviness; | | 2013 | Encounter | MED [facility] NUCLEAR | MD [address] | Other chest pain | | | | MEDICINE [address] [place], | | | | | [place], | [place] [address] | | | | | [address] | [phone] | | | | | [phone] | | | +--------+ + + + [...] + +--------+ + + + | NM NUCLEAR STRESS | Routin | 07/29/2013 | Chest heaviness | Results for this | | TEST (PHARMACOLOGIC | e | 9:21 AM | Other chest pain | procedure are in the | | - VASODILATOR) | | PDT | | results section. | + +--------+ + + + documented in this encounter Results NM Nuclear Stress Test (Vasodilator) (07/29/2013 9:21 AM PDT) + + | Specimen | + + | | + + + + + | Impressions | Performed At | + + + | 1. Persantine EKG is negative. 2. Normal Persantine | | | Sestamibi myocardial perfusion study with a normal left ventricular | | | size and wall thickness. Preserved left ventricular systolic | | | function. LVEF by gated SPECT 80%. Signed by: Pooja | | | MD Roman [facility] 07/29/2013, 9:39 | | + + + + + + | Narrative | Performed At | + + + | NUCLEAR MEDICINE STRESS TEST REPORT | | | Patient Name: Priscila Brasher Study Date: 07/29/2013 Primary | | | Care Provider: David Arias MD : | | | 1940 Age: 72 y.o. Gender: female CLINICAL | | | HISTORY/DIAGNOSIS: Chest pain PERSANTINE SESTAMIBI STRESS TEST | | | Indication: Chest the Procedure: In the supine position, 37.3 | | | mg of Persantine was infused intravenously over 4 minutes. | | | Blood pressure and EKG were monitored every 1 minute. 5 mL of | | | normal saline was utilized to flush the IV line. 2.5 minutes later, | | | 31.3 mCi sestamibi intravenous injection. SPECT myocardial | | | perfusion imaging was acquired with wall motion analysis. Rest | | | imaging was performed using 17.4 mCi Sestamibi intravenous | | | injection. Repeated SPECT myocardial perfusion imaging was | | | acquired with wall motion analysis. At the end of the procedure, | | | 75 mg of aminophylline was infused intravenously. Hemodynamics: | | | Heart rate baseline 100 beats per minute, peak 109 beats per | | | minute. Blood pressure baseline 122/73 mmHg, peak 105/61 mmHg. | | | EKG baseline underlying sinus rhythm. Normal EKG. Peak | | | unchanged. Side Effects: None. Arrhythmia: None. | | | Persantine Sestamibi Myocardial Perfusion Imaging Result: The | | | Sestamibi Sestamibi tomographic images, reviewed without the | | | attenuation compensation resolution, revealed a normal myocardial | | | perfusion pattern as seen in short axis, vertical long axis, and | | | horizontal long axis projections. The left ventricular cavity is | | | normal. The rest imaging is also normal. Gated SPECT | | | reveals a normal left ventricular wall thickness and motion. | | | Preserved left ventricular systolic function. LVEF by gated SPECT is | | | 80%. | | + + + + + | Procedure Note | + + | Pooaj Owens MD - 07/29/2013 12:46 PM PDT Formatting of this note might be | | different from the original. NUCLEAR MEDICINE STRESS TEST REPORT Patient Name: | | Priscila Brasher Study Date: 07/29/2013 Primary Care Provider: David Arias | | : 1940 Age: 72 y.o. Gender: female CLINICAL | | HISTORY/DIAGNOSIS: Chest pain PERSANTINE SESTAMIBI STRESS TESTIndication:Chest the | | Procedure: In the supine position, 37.3 mg of Persantine was infused intravenously over | | 4 minutes. Blood pressure and EKG were monitored every 1 minute. 5 mL of normal | | saline was utilized to flush the IV line. 2.5 minutes later, 31.3 mCi sestamibi | | intravenous injection. SPECT myocardial perfusion imaging was acquired with wall motion | | analysis. Rest imaging was performed using 17.4 mCi Sestamibi intravenous injection. | | Repeated SPECT myocardial perfusion imaging was acquired with wall motion analysis. At | | the end of the procedure, 75 mg of aminophylline was infused intravenously.Hemodynamics: | | Heart rate baseline 100 beats per minute, peak 109 beats per minute. Blood pressure | | baseline 122/73 mmHg, peak 105/61 mmHg. EKG baseline underlying sinus rhythm. Normal | | EKG. Peak unchanged.Side Effects: None.Arrhythmia: None.Persantine Sestamibi | | Myocardial Perfusion Imaging Result: The Sestamibi Sestamibi tomographic images, | | reviewed without the attenuation compensation resolution, revealed a normal myocardial | | perfusion pattern as seen in short axis, vertical long axis, and horizontal long axis | | projections. The left ventricular cavity is normal. The rest imaging is also normal. | | Gated SPECT reveals a normal left ventricular wall thickness and motion. Preserved | | left ventricular systolic function. LVEF by gated SPECT is 80%. IMPRESSION: 1. | | Persantine EKG is negative.2. Normal Persantine Sestamibi myocardial perfusion study | | with a normal left ventricular size and wall thickness. Preserved left ventricular | | systolic function. LVEF by gated SPECT 80%.Signed by: Pooja Owens MD [facility] | | 07/29/2013, 9:39 | |Side Effects: None. | | | |Arrhythmia: None. | | | |Persantine Sestamibi Myocardial Perfusion Imaging Result: | | The Sestamibi Sestamibi tomographic images, reviewed without the attenuation compensation resolution, revealed a normal myocardial perfusion pattern as seen in short axis, vertical l afshan axis, and | |horizontal long axis projections. The left ventricular cavity is normal. The rest imaging i s also normal. | | | | Gated SPECT reveals a normal left ventricular wall thickness and motion. Preserved left v entricular systolic function. LVEF by gated SPECT is 80%. | | | |IMPRESSION: | | | |1. Persantine EKG is negative. | |2. Normal Persantine Sestamibi myocardial perfusion study with a normal left ventricular size and wall thickness. Preserved left ventricular systolic function. LVEF by gated SPECT 80%. | | | | | | | | | |Signed by: Pooja Owens MD [facility] | | 07/29/2013, 9:39 | + + documented in this encounter Visit Diagnoses + + | Diagnosis | + + | Chest heaviness Other chest pain | + + | Other chest pain | + + documented in this encounter Administered Medications + +--------+ + +------+------+ | Medication Order | MAR | Action | Dose | Rate | Site | | | Action | Date | | | | + +--------+ + +------+------+ | technetium TC-99M sestamibi | Given | 07/30/19 | 17.4 | | | | (CARDIOLITE) injection 30 | | 14 9:20 | -millicu | | | | millicurie 30 -millicurie, | | AM PDT | mariza | | | | Intravenous, ONCE PRN, Other, | | | | | | | Starting [facility] 07/29/13 at 0920, For | | | | | | | 1 dose, Nuclear Medicine | | | | | | + +--------+ + +------+------+ +---+---+ | | | +---+---+ documented in this encounter"
--- OUTSIDE RECORDS SUMMARY | ~2019-12-11 | XMS | Encounter Summary ---
Demographics + + + | Address | [address] | | | [place] [address] | + + + | Home Phone [...] Team Providers + +------+ + | Care Environmental Health Technician Name | Role | Phone | + +------+ + | David Arias MD | PCP | | + +------+ + Encounter Details +--------+ + + + + | Date | Type | Department | Care Team | Description | +--------+ + + + + | 11/24/ | Orders Only | [facility] [place] | Clarice Madrigal, | Palpitations; | | 2013 | | CARDIOLOGY [address] | RN | Dizziness; | | | | [place], | | Lightheadedness | | | | [place] [address] | | | | | | [phone] | | | +--------+ + + + [...] [facility] | | IMPLANTATION PATIENT NAME: Priscila Brasher : | [facility] | | 1940: AGE: 73 y.o. MEDICAL RECORD NUMBER: | [facility] | | [id number] PRIMARY CARE: David Arias MD SURGEON: | [...] | | during procedure. The [employer] device loan representative was present | | | in [...] well. DEVICE INFORMATION: A. | | | Ekotrope loop recorder, model #: 9529, serial #: [id number]. | | | DEVICE SETTINGS: VT: 340 [...] during | | procedure. The [employer] device loan representative was present in the operating room. [...] procedure | | well. DEVICE INFORMATION: A. Prof[employer]tronic loop recorder, model #: 9529, serial #: [id number] | | [id number].DEVICE SETTINGS: VT: 340 ms, 60 beats.Fast VT: 260 ms, and 30/40 | | beats.Bradycardia: 1500 ms, a 4 beats.Asystole: 3 seconds.Pooja Owens, | | 11/24/2013 15:50 | | | |After informed consent was obtained, the patient was taken to the operating room. 1 g of c efazolin was given intravenously. Patient was hooked up to EKG, pulse oximetry and blood pr essure monitoring. All | |parameters were kept stable during procedure. The [employer] device loan representative was pres ent in the operating [...] | | | |DEVICE INFORMATION: | |A. Ekotrope loop recorder, model #: 9529, serial #: [id number]. | | | |DEVICE SETTINGS: | |VT: [...] | [address] | [address] | [place] | [phone] | | [facility] | | [address] | | | - IMAGING | | | | + + + + + documented in this encounter Visit Diagnoses + + | Diagnosis | + + | Palpitations | + + | Dizziness Dizziness and giddiness | + + | Lightheadedness Dizziness and giddiness | + + documented in this encounter"
--- OUTSIDE RECORDS SUMMARY | ~2019-12-11 | XMS | Encounter Summary ---
Demographics + + + | Address | [address] | | | [place] [address] | + + + | Home Phone | | + + + | Preferred Language | Unknown | + + + | Marital Status | Single | + + + | Sikh Affiliation | Unknown | + + + | Race | White | + + + | Ethnic Group | Not or | + + + Author + + + | Author | [facility] | | | and [place] | + + + | Organization | [facility] | | | and [...] Team Providers + +------+ + | Care Vice President Supply Chain Name | Role | Phone | + +------+ + | David Arias MD | PCP | | + +------+ + Encounter Details +--------+ + + + + | Date | Type | Department | Care Team | Description | +--------+ + + + + | 04/01/ | Hospital | [facility] | Oleksandr Hyde, | Shortness of breath | | 2018 | Encounter | MED CTR PULMONARY | MD [address] | | | | | FUNCTION [address] | [place], [place] | | | | | [place], | [address] | | | | | [place] [address] | | | | | | [phone] | | | +--------+ + + + [...] by | 360 mL | 11 | 04/01/20 | | | albuterol-ipratropiu | nebulization every 4 | | | 18 | 0 | | m 2.5-0.5 mg/3 mL | hours as needed for | | | | | | SOLNIndications: | Shortness of Breath | | | | | | Chronic obstructive | (shortness of | | | | | | pulmonary disease, | breath). | | | | | | unspecified COPD | | | | | | | type (HCC), | | | | | | | Centrilobular | | | | | | | emphysema (HCC) | | | | | | + + + +---------+ + + | atorvaSTATin | Take one tablet at | | 0 | 03/14/20 | | | (LIPITOR) 40 mg | bedtime | | | 16 | 9 | | tablet | | | | | | + + + +---------+ + + | budesonide | Take 0.5 mg by | | 0 | | | | (PULMICORT) 0.5 mg/2 | nebulization Twice | | | | 0 | | mL nebulizer | Daily. | | | | | | solution | | | | | | + + + +---------+ + + | formoterol | Take 20 mcg by | | 0 | | | | (PERFOROMIST) 20 | nebulization Every | | | | 0 | | MCG/2ML nebulizer | 12 hours. | | | | | | solution | | | | | | + + + +---------+ + + | melatonin 1 mg | Take 1 mg by mouth | | 0 | 02/10/20 | | | TABS | Daily as needed. | | | 18 | 9 | + + + +---------+ + + [...] documented as of this encounter Procedure Notes Oleksandr Hyde MD - 04/01/2018 1:30 PM PSTAssociated Order(s): PFT PULMONARY FUNCTION TESTING ORDERSProcedure(s): PFT PULMONARY FUNCTION TESTING ORDERSPre-Procedure Diagnose(s): Shortness of breath PULMONARY FUNCTION TESTING SPIROMETRY: The prebronchodilator FVC was 2.88 L or 100 % of predicted. The prebronchodilat or FEV1 was 1.73 L or 81 % of predicted. FEV1/FVC ratio was 60 %. Following inhalation of a lbuterol the patient's FEV1 was unchanged. DIFFUSION CAPACITY: The diffusion capacity was 9.2 mL/mmHg per minute or 40 % of predicted. IMPRESSION: Spirometry is consistent with mild obstructive physiology based on a reduced FE V1/FVC with a normal FEV1. Diffusion capacity is severely reduced and is not corrected for measured hemoglobin. Compared to pulmonary function tests performed 05/28/16 the patient's spirometry appears sta ble. Test performed: 04/01/18 Electronically signed by: Oleksandr Hyde MD 04/01/2018 13:30 WSLEGACY HEALTHElectronically signed by Oleksandr Hyde MD at 1:32 PM PSTdocumented in this encounter Plan of Treatment Not on filedocumented as of this encounter Procedures + +--------+ + + + | Procedure Name | Priori | Date/Time | Associated Diagnosis | Comments | | | ty | | | | + +--------+ + + + | PFT PULMONARY | MIKE | 04/01/2018 | Shortness of | Results for this | | FUNCTION TESTING | | 1:30 PM | breath | procedure are in the | | ORDERS | | PST | | results section. | + +--------+ + + + | PFT PULMONARY | MIKE | 04/01/2018 | Shortness of | Results for this | | FUNCTION TESTING | | 1:30 PM | breath | procedure are in the | | ORDERS | | PST | | results section. | + +--------+ + + + | PFT PULMONARY | MIKE | 04/01/2018 | Shortness of | Results for this | | FUNCTION TESTING | | 1:30 PM | breath | procedure are in the | | ORDERS | | PST | | results section. | + +--------+ + + + documented in this encounter Results Pulmonary function test Other - see PFT comments (04/01/2018 1:30 PM PST) + + + | Narrative | Performed At | + + + | Oleksandr | | | MD Barrett 04/01/2018 13:32 PULMONARY FUNCTION TESTING | | | SPIROMETRY: The prebronchodilator FVC was 2.88 L or 100 % of | | | predicted. The prebronchodilator FEV1 was 1.73 L or 81 % of predicted. | | | FEV1/FVC ratio was 60 %. Following inhalation of albuterol the | | | patient's FEV1 was unchanged. DIFFUSION CAPACITY: The diffusion | | | capacity was 9.2 mL/mmHg per minute or 40 % of predicted. IMPRESSION: | | | Spirometry is consistent with mild obstructive physiology based on a | | | reduced FEV1/FVC with a normal FEV1. Diffusion capacity is severely | | | reduced and is not corrected for measured hemoglobin. Compared to | | | pulmonary function tests performed 05/28/16 the patient's spirometry | | | appears stable. Test performed: 04/01/18Electronically signed by: | | | Oleksandr Hyde MD 04/01/2018 13:30M [facility] | [facility] | | |physiology based on a reduced FEV1/FVC with a normal FEV1. | | |Diffusion capacity is severely reduced and is not corrected for | | |measured hemoglobin. | | | | | |Compared to pulmonary function tests performed 05/28/16 the | | |patient's spirometry appears stable. | | | | | |Test performed: 04/01/18 | | |Electronically signed by: Oleksandr Hyde MD 04/01/2018 | | |13:30 | | |[facility] | | + + + documented in this encounter Visit Diagnoses + + | Diagnosis | + + | Shortness of breath | + + documented in this encounter Administered Medications + +--------+ +--------+------+------+ | Medication Order | MAR | Action | Dose | Rate | Site | | | Action | Date | | | | + +--------+ +--------+------+------+ | albuterol 2.5 mg/3 mL nebulizer | Given | 04/01/20 | 2.5 mg | | | | solution 2.5 mg 2.5 mg, | | 18 10:47 | | | | | Nebulization, RT Once, Wed | | AM PST | | | | | 04/01/18 at 1115, For 1 dose, RT | | | | | | | will administer., | | | | | | + +--------+ +--------+------+------+ +---+---+ | | | +---+---+ documented in this encounter"
--- OUTSIDE RECORDS SUMMARY | ~2019-12-11 | XMS | Encounter Summary ---
Demographics + + + | Address | [address] | | | [place] [address] | + + + | Home Phone | | + + + | Preferred Language | Unknown | + + + | Marital Status | Single | + + + | Rastafarian Affiliation | Unknown | + + + | Race | White | + + + | Ethnic Group | Not or | + + + Author + + + | Author | [facility] | | | and [place] | + + + | Organization | [facility] | | | [...] Team Providers + +------+ + | Care Public Address System Installer Name | Role | Phone | + +------+ + | David Arias MD | PCP | | + +------+ + Encounter Details +--------+ + + + + | Date | Type | Department | Care Team | Description | +--------+ + + + + | 12/28/ | Hospital | [facility] | Conversion | Diagnosis unknown | | 2016 | Encounter | CONVERSION [address] | Transaction, | | | | | [address] | Provider Unknown | | | | | [place] | [phone] | | | | | [address] | | | | | | [phone] | | | +--------+ + + + [...] +--------+ + + + | XR CHEST 1 VIEW | Routin | 12/29/2015 | | Results for this | | | e | 2:45 PM | | procedure are in the | | | | PDT | | results section. | + +--------+ + + + documented in this encounter Results XR Chest 1 Vw (12/29/2015 2:45 PM PDT) + + | Specimen | + + | | + + + + + | Narrative | Performed At | + + + | This is a non-reportable procedure without a radiologist report and | | | is used for image storage only | | + + + + + | Procedure Note | + + | JerrellLorenzo Conversion - 11/19/2018 6:45 PM PDT This is a non-reportable procedure | | without a radiologist report and isused for image storage only | + + documented in this encounter Visit Diagnoses + + | Diagnosis | + + | Diagnosis unknown Other unknown and unspecified cause of morbidity or mortality | + + documented in this encounter"
--- OUTSIDE RECORDS SUMMARY | ~2019-12-11 | XMS | Encounter Summary ---
Demographics + + + | Address | [address] | | | [place] [address] | + + + | Home Phone | | + + + | Preferred Language | Unknown | + + + | Marital Status | Single | + + + | Nondenominational Affiliation | Unknown | + + + | Race | White | + + + | Ethnic Group | Not or | + + + Author + + + | Author | [facility] | | | and [place] | + + + | Organization | [facility] | | | and [place] | + + + | Address | Unknown | + + + | Phone | Unavailable | + + + Support + + +---------+ + | Name | Relationship | Address | Phone | + + +---------+ + | Osorio Wbester | ECON | Unknown | | + + +---------+ + | Toñito Hernandez | ECON | Unknown | | + + +---------+ + Care Team Providers + +------+ + | Care E Business Specialist Name | Role | Phone | + +------+ + | David Arias MD | PCP | | + +------+ + Reason for Visit +--------+ + | Reason | Comments | +--------+ + | COPD | Follow up with PFT's | +--------+ + Encounter Details +--------+---------+ + + + | Date | Type | Department | Care Team | Description | +--------+---------+ + + + | 05/28/ | Office | [facility] | Oleksandr Hyde, | Chronic obstructive | | 2016 | Visit | PULMONARY [address] | pulmonary disease, | | | | [place], | [place] | unspecified COPD | | | | [place] [address] | [address] | type ([facility]) (Primary | | | | [phone] | | Dx); Hypoxemia | +--------+---------+ + + + Social [...] + + + | Blood Pressure | 110/70 | 05/28/2016 2:11 PM | | | | | PST | | + + + + + | Pulse | 100 | 05/28/2016 2:11 PM | | | | | PST | | + + + + + | Temperature | - | - | | + + + + + | Respiratory Rate | - | - | | + + + + + | Oxygen Saturation | 95% | 05/28/2016 2:11 PM | | | | | PST | | + + + + + | Inhaled Oxygen | - | - | | | Concentration | | | | + + + + + | Weight | 66.2 kg (146 lb) | 05/28/2016 2:11 PM | | | | | PST | | + + + + + | Height | 165.1 cm (5' 5") | 05/28/2016 2:11 PM | | | | | PST | | + + + + + | Body Mass Index | 24.3 | 05/28/2016 2:11 PM | | | | | PST | | + + + + + documented in this encounter Patient Instructions Patient Instructions Oleksandr Hyde MD - 05/28/2016 2:48 PM PST COPD Flare You have had a [...] worse Dizziness or weakness Date Last Reviewed: 12/07/201519992625-5849 [employer]. [address] [place] [address], [place] [address]. All righ ts reserved. This information is not intended as a substitute for professional medical care. Always follow your healthcare professional's instructions. documented in this encounter Progress Notes Oleksandr Hyde MD - 05/28/2016 2:36 PM PSTFormatting of this note might be different f rom the original. Pulmonary Follow Up 05/28/2016 HPI Priscila Brasher is a 75 y.o. female patient of David Arias MD here today for foll ow up of presumptive COPD. The last pulmonary clinic visit was on 12/01/15. Since their last appointment they feel like their breathing issues have been fluctuating. The patient describes what sounds like 2 sep arate COPD exacerbations. She also apparently fractured her left lower extremity with minim al trauma. They have had any acute pulmonary illnesses. The patient has required 2 prednisone tapers s maurice our last clinic appointment. Likewise Priscila Brasher has required 2 courses antibi otics for a COPD exacerbation since our last clinic appointment. They are currently on a daily regimen of as needed DuoNeb for their COPD. They do not feel like this medication regimen is/are controlling their symptoms. They are using their DuoNeb nebulizer, 1 2 times a week Currently the patient is able to walk 100 yards at their own pace on level ground before de veloping dyspnea. They are not exercising regularly. They are not enrolled in cardiac/pulmo nary rehabilitation. They have not completed pulmonary rehabilitation in the past. The patient does cough chronically and does produce scant mucous. The mucous is clear in co concepcion. They have had hemoptysis since our last appointment. She [...] Prevnar 13. Past Medical History Past Medical History Diagnosis [...] while Valvular heart disease Pol[place] 1952 Acute ND (HCC) 12/15/13 4 stents placed Acid reflux disease Social History: She reports that she quit smoking about 27 years ago. Her smoking use included Cigarettes. She has a 180 pack-year smoking history. She has never used smokeless tobacco. She reports t hat she does not drink alcohol or use illicit drugs. Allergies: Allergies Allergen Reactions Penicillins Anaphylaxis Codeine Sulfate Nausea And Vomiting Tetanus Toxoids Hives Medications: Current outpatient prescriptions: albuterol 1.25 mg/3 mL nebulizer solution, , Disp: , Rfl: 3 albuterol-ipratropium (DUONEB) 2.5-0.5 mg/3 mL SOLN, Take [...] one tablet at bedtime, Disp: , Rfl: diclofenac (VOLTAREN) 75 mg EC tablet, Take 75 mg by mouth Daily., Disp: , Rfl: fish oil 1,000 mg capsule, Take 2,000 mg by mouth Daily., Disp: , Rfl: fluticasone (FLONASE) 50 mcg/nasal spray, 2 sprays by Nasal route Daily., Disp: , Rfl: 99 metoprolol succinate (TOPROL-XL) 25 mg 24 hr [...] into the lungs nightly., Disp: , Rfl: No current facility-administered medications for this visit. Immunizations: Immunization History Administered Date(s) Administered INFLUENZA 67 Y OR >, TRIVALENT HIGH-DOSE 01/19/2015, 01/15/2016 INFLUENZA PF 20 Y OR >,TRIVALENT RECOMBINANT [...] Denies urticaria and allergic rash. Objective BP 110/70 mmHg | Pulse 100 | Ht 1.651 m (5' 5") | Wt 66.225 kg (146 lb) | BMI 24.30 kg/m2 | SpO2 95% | ? No Appearance: Alert, cooperative, no distress, appears stated [...] cervical and supraclavicular nodes. Neurologic: Gait normal. Patient walking with a boot on her left lower extremity. No appa rent weakness. Data: Postbronchodilator FEV1 is 1.83, 83% of predicted with an FEV1/FVC of 57%. Assessment 1. COPD diagnosis primarily based on symptoms, smoking history and x-ray rather than pul monary function tests. Over the last 5.5 years the patient's FEV1 following bronchodilators has fallen 13%. Since her last clinic appointment in November Priscila's experienced to apparent COPD exacerba tions requiring antibiotics and prednisone. Today we discussed intensifying the patient's COPD medication regimen. Related to financia l concerns we will initiate budesonide and formoterol each via nebulizer. The patient was also encouraged to initiate regular schedule exercise. Plan 1. Budesonide via nebulizer twice a day 2. Performist via nebulizer twice a day. 3. Patient will continue use DuoNeb as needed. 4. The interval between pulmonary follow-up appointments will be shortened to 2 months to assess the patient's response to therapy. CC: David Arias MD documented in this encounter Plan of Treatment Not on filedocumented as of this encounter Visit Diagnoses + + | Diagnosis | + + | Chronic obstructive pulmonary disease, unspecified COPD type (HCC) - Primary | + + | Hypoxemia | + + documented in this encounter
--- OUTSIDE RECORDS SUMMARY | ~2019-12-11 | XMS | Encounter Summary ---
Demographics + + + | Address | [address] | | | [place] [address] | + + + | Home Phone [...] + + + | Author | [facility] | | | and [place] | + + + | Organization | [facility] | | | [...] Team Providers + +------+ + | Care Tile Decorator Name | Role | Phone | + [...] Radiology | Diagnoses | [place], | [facility] | | | | | Chest | MD Pooja | Medicine | | | | | heaviness | [address] | | | | | Other chest | [address] | [place], | | | | | pain | [place], | [place] | | | | | Procedures | [place] [address] | [address] | | | | | [place] [facility] | Phone: | Phone: | | | | | Stress Test | [phone] | [phone] | | | | | (Exercise) | Fax: | Fax: | | | | | | [phone] | [phone] | +--------+--------+ + + + + Encounter Details +--------+ + + + + | Date | Type | Department | Care Team | Description | +--------+ + + + + | 07/27/ | Hospital | [facility] | Pooja Owens, | Chest heaviness; | | 2013 | Encounter | MED CTR NUCLEAR | MD [address] | Other chest pain | | | | MEDICINE [address] [place], | | | | | [place], | [place] [address] | | | | | [address] | [phone] | | | | | [phone] | | | +--------+ + + + [...] + + + | Blood Pressure | - | - | | + [...] + + + + | Weight | 65.3 kg (144 lb) | 07/27/2013 7:00 AM | | | | | PDT | | + + + + + | Height | - | - | | + + + + + | Body Mass Index | 24.72 | 06/30/2013 8:57 AM | | | [...] documented as of this encounter [facility] 08/10/2013 12:00 AM PDT 14 9:08 [facility] - 07/30/2013 12:00 AM PDT documented in this encounter Miscellaneous Notes [facility] 07/30/2013 12:00 AM PDT documented in this encounter Plan of Treatment [...] | technetium TC-99M sestamibi | Given | 07/28/19 | 31.3 | | | | (CARDIOLITE) injection 30 | | 14 7:58 | -millicu | | | | millicurie 30 -millicurie, | | AM PDT | mariza | | | | Intravenous, ONCE LUISN, Other, | | | | | | | Starting Fri07/27/13 at 0758, For | | | | | | | 1 dose, Nuclear Medicine | | | | | | + +--------+ + +------+------+ +---+---+ | | | +---+---+ documented in this encounter"
--- OUTSIDE RECORDS SUMMARY | ~2019-12-11 | XMS | Encounter Summary ---
Demographics + + + | Address | [address] | | | [place] [address] | + + + | Home Phone [...] Team Providers + +------+ + | Care Railroad Purchasing Agent Name | Role | Phone | + +------+ + | David Arias MD | PCP | | + +------+ + Encounter Details +--------+ + + + + | Date | Type | Department | Care Team | Description | +--------+ + + + + | 05/28/ | Hospital | [facility] | Oleksandr Hyed, | Chronic obstructive | | 2017 | Encounter | [facility] | MD [address] | pulmonary disease, | | | | [address] | [place], [place] | unspecified COPD | | | | [place], | [id number] | type (HCC); | | | | [place] [address] | | Centrilobular | | | | [phone] | | emphysema (HCC) | +--------+ + [...] +---------+ + + | budesonide | Take 2 mLs by | 60 | 3 | 05/28/19 | | | (PULMICORT) 0.25 | nebulization 2 times | ampule | | 17 | 7 | | mg/2 mL nebulizer | daily. | | | | | | solutionIndications: | | | | | | | Chronic obstructive | | | | | | | pulmonary disease, | | | | | | | unspecified COPD | | | | | | | type (HCC) | | | | | | [...] + +---------+ + + | formoterol | In nebulizer twice | 60 | 5 | 05/28/19 | | | (PERFOROMIST) 20 | daily. Duration: | ampule | | 17 | 7 | | MCG/2ML nebulizer | Lifetime Dx: J44.9 | | | | | | solutionIndications: | | | | | | | Chronic obstructive | | | | | | | pulmonary disease, | | | | | | | unspecified COPD | | | | | | | type (HCC) | | | | | | [...] encounter Procedure Notes Oleksandr Hyde MD - 05/28/2016 2:56 PM PSTAssociated Order(s): PFT PULMONARY FUNCTION TESTING ORDERSProcedure(s): PFT PULMONARY FUNCTION TESTING ORDERSPre-Procedure Diagnose(s): Chronic obstructive pulmonary disease, unspecified COPD type (HCC); Centrilobular emphysema (HCC) PULMONARY FUNCTION TESTING SPIROMETRY: The prebronchodilator FVC was 2.91 L or 99 % of predicted. The prebronchodilato r FEV1 was 1.68 L or 76 % of predicted. FEV1/FVC ratio was 58 %. Following inhalation of al buterol the patient's FEV1 munira to 1.83, 83% of predicted. This represents 150 mL of improv ement or 9%. IMPRESSION: Spirometry is consistent with mild obstructive physiology which appears to reso lve following inhalation of albuterol. Compared to pulmonary function tests performed on the postbronchodilator FEV1 has fallen 13%. Test performed: 05/28/16 Electronically signed by: Oleksandr Hyde MD 05/28/2016 14:56 [facility] Oleksandr Hyde MD at 2:58 PM PSTdocumented in this encounter Plan of Treatment Not on filedocumented as of this encounter Procedures + +--------+ + + + | Procedure Name | Priori | Date/Time | Associated Diagnosis | Comments | | | ty | | | | + +--------+ + + + | PFT PULMONARY | MIKE | 05/28/2016 | Chronic | Results for this | | FUNCTION TESTING | | 2:58 PM | obstructive | procedure are in the | | ORDERS | | PST | pulmonary disease, | results section. | | | | | unspecified COPD | | | | | | type (HCC) | | | | | | Centrilobular | | | | | | emphysema (HCC) | | + +--------+ + + + | PFT PULMONARY | [facility]KE | 05/28/2016 | Chronic | Results for this | | FUNCTION TESTING | | 2:58 PM | obstructive | procedure are in the | | ORDERS | | PST | pulmonary disease, | results section. | | | | | unspecified COPD | | | | | | type (HCC) | | | | | | Centrilobular | | | | | | emphysema (HCC) | | + +--------+ + + + documented in this encounter Results Pulmonary function test (05/28/2016 2:58 PM [facility]) + + + | Narrative | Performed [...] Hyde MD 05/28/2016 | | | 14:56[facility] | | |physiology which appears to resolve following inhalation of | | |albuterol. Compared to pulmonary function tests performed on | | |01/25/11 the postbronchodilator FEV1 has fallen 13%. | | | | | | | | |Test performed: 05/28/16 | | |Electronically signed by: Oleksandr Hyde MD 05/28/2016 14:56 | | |[facility] | | + + + documented [...] 2.5 mg/3 mL nebulizer | Given | 05/28/19 | 2.5 mg | | | | solution 2.5 mg 2.5 mg, | | 17 1:54 | | | | | Nebulization, RT Once, Tue | | PM PST | | | | | 05/28/16 at 1415, For 1 dose, RT | | | | | | | will administer., | | | | | | + +--------+ +--------+------+------+ +---+---+ | | | +---+---+ documented in this encounter"
--- OUTSIDE RECORDS SUMMARY | ~2019-12-11 | XMS | Encounter Summary ---
Demographics + + + | Address | [address] | | | [place] [address] | + + + | Home Phone | | + + + | Preferred Language | Unknown | + + + | Marital Status | Single | + + + | Lutheran Affiliation | Unknown | + + + [...] Team Providers + +------+ + | Care Education Diagnostician Name | Role | Phone | + +------+ + | David Arias MD | PCP | | + +------+ + Reason for Visit +--------+--------+ + | Reason | Onset | Comments | | | Date | | +--------+--------+ + | Other | 03/12/ | follow up | | | 2018 | | +--------+--------+ + Encounter Details +--------+ + + + + | Date | Type | Department | Care Team | Description | +--------+ + + + + | 03/12/ | Telephone | [facility] | Oleksandr Hyde, | Other (follow up) | | 2017 | | PULMONARY [address] | MD [address] | | | | | [place], | [place] | | | | | [place] [address] | [id number] | | | | | [phone] | | | +--------+ + + + [...] Telephone Encounter - Odalys Fajardo RN - 03/12/2018 9:24 AM Luis Manuel called request ing a follow up. She was last seen 05/28/16. A follow up was scheduled but patient cancelled due to complications from a hiatal hernia surgery. She states that she is on continuous O2 n ow ordered a year ago by her PCP Dr Arias. Her breathing has been worse especially with e xertion. Priscila's only pulmonary meds are perforomist and budesonide via nebulizer. She als o has a Ventolin inhaler which she says "doesn't work". Didi had a CXR performed at [facility] in Jan prior to a knee surgery. (The films are on Isite.) Per Dr Hyde, Priscila is to have a follow up next month with pre/post bronchodilator and DLCO prior to her visit. PF T ordered. documented in this encounter Plan of Treatment Not on filedocumented as of this encounter Results Pulmonary function test Other [...] | | | Oleksandr Hyde MD 04/01/2018 13:30[facility] | | | [facility] | | |physiology based on a reduced [...] MD 04/01/2018 | | |13:30 | | |[facility] | | + + + documented in this encounter Visit Diagnoses + + | Diagnosis | + + | Shortness of breath - Primary | + + documented in this encounter
--- OUTSIDE RECORDS SUMMARY | ~2019-12-11 | XMS | Encounter Summary ---
Demographics + + + | Address | [address] | | | [place] [address] | + + + | Home Phone | | + + + | Preferred Language | Unknown | + + + | Marital Status | Single | + + + | Mosque Affiliation | Unknown | + + + | Race | White | + + + | Ethnic Group | Not or | + + + Author + + + | Author | [facility] | | | and [place] | + + + | Organization | [facility] | | [...] Team Providers + +------+ + | Care Flooring Installer Name | Role | Phone | + +------+ + | David Arias MD | PCP | | + +------+ + Encounter Details +--------+ + + + + | Date | Type | Department | Care Team | Description | +--------+ + + + + | 01/14/ | Hospital | [facility] | Conversion | Pain | | 2013 | Encounter | CONVERSION [address] | Transaction, | | | | | [address] | Provider Unknown | | | | | [place], [place] | [phone] | | | | | [address] | | | | | | [phone] | | | +--------+ + + + [...] | | | | | | | ([facility]) | | | | | | + [...] + + + +---------+ + + | dexamethasone | Take 2 mg by mouth 2 | | 0 | | | | (DECADRON) 2 MG | times daily (with | | | | 4 | | tablet | breakfast & dinner). | | | | | + + [...] + +--------+ + + + | CT HEAD WO CONTRAST | Routin | 03/01/2012 | | Results for this | | | e | 10:13 PM | | procedure are in the | | | | PST | | results section. | + +--------+ + + + documented in this encounter Results CT Head wo Contrast (03/01/2012 10:13 PM PST) + + | Specimen | + + | | + + + + + | Narrative | Performed At | + + + | This is a non-reportable procedure without a radiologist report and | | | is used for image storage only | | + + + + + | Procedure Note | + + | Lorenzo Allan - 11/27/2018 7:45 PM PDT This is a non-reportable procedure | | without a radiologist report and isused for image storage only | + + documented in this encounter Visit Diagnoses + + | Diagnosis | + + | Pain Generalized pain | + + documented in this encounter"
--- OUTSIDE RECORDS SUMMARY | ~2019-12-11 | XMS | Encounter Summary ---
Demographics + + + | Address | [address] | | | [place] [address] | + + + | Home Phone [...] Team Providers + +------+ + | Care Talent Manager Name | Role | Phone | + +------+ + | Krystyna Luciano MD | PCP | | + +------+ + Encounter Details +--------+ + + + + | Date | Type | Department | Care Team | Description | +--------+ + + + + | 12/15/ | Hospital | [facility] | Afshin Fitzgerald MD | Chest pain | | 2014 - | Encounter | [facility] | [address] | | | | | CARE FLO[address] | [place] [address] | | | 12/17/ | | [address] | [phone] | | | 2013 | | [place], [place] | | | | | | [address] | | | | | | [phone] | | | +--------+ + + + [...] documented as of this encounter Discharge Summaries Cristal Coughlin PA - 12/17/2013 9:16 AM PDTFormatting of this note might be diffe rent from the original. Discharge Summaries by Cristal Coughlin PA-C at 12/17/13 0916 Author: Cristal Coughlin PA-C Service: Cardiology Author Type: Physician Touch Up Worker - Certified Filed: 12/20/13 1438 Date of Service: 12/17/13915 Status: Attested [employer] Supervisor: Cristal Coughlin PA-C (Physician Touch Up Worker - Certified) Related Notes: Original Note by Cristal Coughlin PA-C (Physician Touch Up Worker - Certified ) filed at 12/17/13 1048 Cosigner: Danii Kimble MD at 12/24/13 1046 Attestation signed by Danii Kimble MD at 12/24/13 1046 I saw and examined the patient with Cristal Coughlin PA-C. I have reviewed the tests per formed. I agree with the assessment and plan as documented in the note. Danii Kimble MD 12/24/2013 [facility] Service: Cardiology Discharge Summary Date of Admission: 12/15/2013 Date of Discharge: 12/17/2013 Discharge Physician: Danii Kimble MD DISCHARGE DIAGNOSIS: High risk NSTEMI PROCEDURES: Angioplasty with 2 non overlapping MIGUEL to Rt AV groove Promus Premiere 2.25 x 12 mm and dRC A Promus Premiere 2.5 x 16 mm. HOSPITAL COURSE: No events overnight. The patient will be discharged in stable condition. DISCHARGE EXAM Vital Signs: BP 103/65 | Pulse 93 | Temp(Src) 98.3 F (36.8 C) (Oral) | Resp 18 | Ht 1.626 m (5' 4") | Wt 66.6 kg (146 lb 13.2 oz) | BMI 25.19 kg/m2 | SpO2 96% | ? No HEENT: No xanthelasmas. Extraocular movements were intact. No jaundice. NECK: no JVD, lymphadenopathy. Trachea is at midline. Thyroid is not palpable. CARDIAC: There is normal S1 and S2. No added sounds, murmurs, gallop, or rub. CHEST: Normal bilateral symmetrical chest excursion. Good bilateral air entry with no crack les or wheezing. No evidence of dullness. ABDOMEN: Soft and lax. No tenderness. No palpable organs. Active bowel sounds. EXTREMITIES: No lower extremities edema. NEURO: Alert and oriented times three with no focal deficit. Cranial nerves are grossly no rmal. SKIN: No bruises or rash. DATA: Recent Labs Lab 12/17/13 0432 12/16/13 0546 NA 137 138 K 3.6 4.1 CO2 23 22* BUN 7* 8 CREATININE 0.51 0.47* MG -- 2.2 Recent Labs Lab 12/17/13 0432 12/16/13 1146 12/16/13 0546 12/16/13 0020 CKTOTAL 372* 853* 948* 929* CKMB -- 140.1* 169.9* 181.7* CKMBINDEX -- 16.4 17.9 19.6 TROPONINI -- 18.1* 18.1* 12.6* Recent Labs Lab 12/17/13 0432 WBC 10.8 HGB 10.8* HCT 34.1 MCV 92.0 PLT 247 PLAN: The patient underwent left heart catheterization for high risk non-ST VT with angioplasty w ith 2 non-overlapping drug-eluting stents. Right AV groove Promus Premier 2.25 x 12 mm, and the distal RCA Promus Premier 2.5 x 16 mm. 1. The patient will remain on aspirin 325 mg for 3 months and then at that time will decrea se to 81 mg indefinitely. She will remain on Plavix 75 mg for a minimum of 1 year. 2. Her blood pressure is well controlled on her current medications. 3. I will increase her Atorvastatin to 80 mg daily. 4. I recommend the patient be referred for cardiac rehab as an outpatient. 5. I recommend she followup with her field artillery operations man in [place] in 3 to 4 weeks. DISCHARGE MEDICATIONS: Medication List Notice You have not been prescribed any medications. Disposition: Home Condition: Stable Code Status: Full Code Discharge took 20 minutes, to include final examination, discussion of admission, and prepa ration of prescriptions, instructions for on-going care, follow-up and documentation of disc harge summary. Patient was seen and examined by Dr. Kimble and plan was discussed and agreed upon. Cristal Coughlin PA-C 12/17/2013 documente d in this encounter Medications at Time of [...] 0 | | | | (VITAMIN D3) 88933 | mouth Once a week. | | [...] documented as of this encounter Progress Notes Leanna Ulrich, Provider Unknown - 12/17/2013 2:21 PM PDTFormatting of this note m ight be different from the original. Progress Notes by Pat Leblanc RN at 12/17/131420 Author: Pat Leblanc RN Service: (none) Author Type: Registered Nurse Filed: 12/17/131421 Date of Service: 12/17/131420 Status: Signed [employer] [facility] Supervisor: Pat Leblanc RN (Registered Nurse) Pt discharged home via private vehicle with brother. Discharge instructions including follo w up appointments, medications and prescriptions reviewed with pt, pt verbalized understandi ng. No questions at this time. Stent information packet with pt at time of discharge. Pat Leblanc RN Lamonte Collins DO - 12/16/2013 4:37 PM PDTFormatting of this note might be different from the joseline aga. Progress Notes by Lamonte Hoover DO at 12/16/13 163 Author: Lamonte Hoover DO Service: (none) Author Type: Physician Filed: 12/16/131646 Date of Service: 12/16/131636 Status: Addendum [employer] Supervisor: Lamonte Hoover DO (Physician) Related Notes: Original Note by Lamonte Hoover DO (Physician) filed at 12/16/13 1642 PROGRESS NOTE 12/16/2013 for Nataly Rojas Sameera on the hospitalist service. Presented with chest pain and malaise, d-dimer was slightly positive so PE was considered, V/Q scan was initially done and showed "borderline high probability" for PE, but as her kayla l fxn was normal a PE protocol CT chest was done and was negative for PE. She developed posi tive cardiac enzymes and ongoing chest pain so cardiology was consulted, cath is planned for this evening, she is meantime on IV heparin infusion, metoprolol, aspirin. ASSESSMENT & PLAN NSTEMI with chest pain Ongoing chest pain, mild, controlled with morphine. Anticipating further recs or possibly cath from Dr Man later today. Meantime, continue I V heparin infusion, telemetry and hemodynamic monitoring, symptom monitoring/management with prn narcotics/nitro, continue aspirin and metoprolol. Consider statin depending on cath sae marcelo. Headache She has chronic migraines that are typically treated in the hospital. For now we will try m orphine as it works well with angina. Problem list: Principal Problem: NSTEMI (non-ST elevated myocardial infarction) Length of stay: 1 days DVT prophylaxis: on IV heparin infusion Code status: full code Disposition: Change from obs to inpatient given her significant trop elevation and not feel ing well today, she is going to need further hospital-based management SUBJECTIVE Patient seen/examined with family present, she is having mild CP controlled with meds but a lso migraine headache, nausea, vomiting. No dyspnea or sweating. No fever/chill. OBJECTIVE Patient Vitals for the past 24 hrs: BP Temp Temp src Pulse Resp SpO2 12/16/13 1612 99/53 mmHg 98.4 F (36.9 C) Oral 74 14 95 % 12/16/13 1430 100/55 mmHg - - 80 - 98 % 12/16/13 1120 112/56 mmHg 97.8 F (36.6 C) Axillary 86 20 99 % 12/16/13 1115 - - - - - 99 % 12/16/13 1113 - - - 83 18 99 % 12/16/13 0703 109/53 mmHg 98.1 F (36.7 C) Oral - 16 99 % 12/16/13 0600 - - - 64 16 100 % 12/16/13 0345 105/51 mmHg 98.7 F (37.1 C) Oral 73 18 98 % 12/15/13 1929 104/62 mmHg 97.8 F (36.6 C) Axillary 70 16 97 % 12/15/13 1853 - - - - - 96 % 12/15/13 1852 103/59 mmHg - - 84 - 81 % 12/15/13 1732 - 97.5 F (36.4 C) Axillary 98 18 94 % Physical exam: NAD AOx3 HENT - MMM, conjunctivae normal Heart - RRR no murmur, no JVD, normal radial / DP pulses B/L Lungs - CTAB/L no WRR, good effort Abd - SNTND +BSx4 Ext - Good ROM no tenderness or edema Skin - normal no lesion CBC: Lab Results Component Value Date WBC 11.4* 12/16/2013 RBC 3.94 12/16/2013 HGB 11.5 12/16/2013 HCT 36.3 12/16/2013 MCV 92.0 12/16/2013 MCH 29.2 12/16/2013 MCHC 31.7* 12/16/2013 RDW 52.5 12/16/2013 PLT 267 12/16/2013 MPV 9.0 12/16/2013 DIFFTYPE AUTOMATED 12/16/2013 CMP: Lab Results Component Value Date NA 138 12/16/2013 K 4.1 12/16/2013 CL 110* 12/16/2013 CO2 22* 12/16/2013 ANIONGAP 10 12/16/2013 GLUF 121* 12/16/2013 BUN 8 12/16/2013 CREATININE 0.47* 12/16/2013 BCR 17 12/16/2013 CA 8.8 12/16/2013 EGFR >60 12/16/2013 Last 3 Troponin: Lab Results Component Value Date TROPONINI 18.1* 12/16/2013 TROPONINI 18.1* 12/16/2013 TROPONINI 12.6* 12/16/2013 CPK: Lab Results Component Value Date CKTOTAL 853* 12/16/2013 CKMB: Lab Results Component Value Date CKMB 140.1* 12/16/2013 MEDICATIONS amitriptyline 25 mg Oral Nightly aspirin 81 mg Oral Daily with breakfast ipratropium-albuterol 3 mL Nebulization Q6H metoclopramide 10 mg Oral 4x Daily AC & HS metoprolol 25 mg Oral BID topiramate 100 mg Oral BID heparin 50 units/mL in Dextrose 5% 12 Units/kg/hr (12/16/13 1013) magnesium sulfate Or magnesium sulfate Or magnesium sulfate sodium chloride (IV) 75 mL/hr at 12/16/13 0312 sodium phosphate IVPB 15 mmol Or sodium phosphate IVPB 30 mmol PRN: acetaminophen, acetaminophen, cyclobenzaprine, heparin (porcine), heparin (porcine), magnes ium sulfate, magnesium sulfate, magnesium sulfate, morphine, morphine, morphine, nitroGLYCER IN, ondansetron, ondansetron, phosphorus, polyethylene glycol, potassium chloride, potassium chloride, potassium chloride, potassium chloride, potassium chloride, potassium chloride, s odium phosphate IVPB 15 mmol, sodium phosphate IVPB 30 mmol, zolpidem Signature: Lamonte Hoover DO 12/16/2013 4:37 PM onversion Transaction , Provider Unknown - 12/16/2013 11:13 AM PDT Case Management by Nilda Hassan RN at 12/16/13 1113 Author: Nilda Hassan RN Service: (none) Author Type: Registered Nurse Filed: 12/16/13 1114 Date of Service: 12/16/13 111 Status: Signed [employer] [facility] Supervisor: Nilda Hassan RN (Registered Nurse) Attempted to interview pt but pt sound asleep, will return. Pt's primary RN Tom castillo s pt has a supportive family who will take her home. onver jill Transaction, Provider Unknown - 12/16/2013 8:14 AM PDT Progress Notes by Izabel Godoy RPH at 12/16/13813 Author: Izabel Godoy RPH Service: (none) Author Type: Pharmacist Filed: 12/16/13813 Date of Service: 12/16/13813 Status: Signed [employer] Supervisor: Izabel Godoy RPH (Pharmacist) SCR = 0.47 No renal dosage adjustments needed at this time. onver jill Transaction, Provider Unknown - 12/16/2013 1:24 AM PDT Nurse Progress Note by Connie Mena RN at 12/16/13123 Author: Connie Mena RN Service: (none) Author Type: Registered Nurse Filed: 12/16/13231 Date of Service: 12/16/13123 Status: Signed [employer] Supervisor: Connie Mena RN (Registered Nurse) Physician notified of elevated troponin of 12.6; pt resting, denies any chest pain; no new orders received at this time; will continue to monitor Connie Mena onver jill Transaction, Provider Unknown - 12/15/2013 10:16 PM PDT Progress Notes by Osman Major RN at 12/15/132215 Author: Osman Major RN Service: (none) Author Type: Registered Nurse Filed: 12/15/132216 Date of Service: 12/15/132215 Status: Signed [employer] Supervisor: Osman Major RN (Registered Nurse) Tele called, informed me that the pt had a 3 beat run of Vtach. Pt is now in NSR, HR 70s a nd sleeping. Will continue to monitor. onver jill Transaction, Provider Unknown - 12/15/2013 5:49 PM PDT Nurse Progress Note by Elif Sidhu RN at 12/15/13 9837 Author: Elif Sidhu RN Service: (none) Author Type: Registered Nurse Filed: 12/15/131750 Date of Service: 12/15/131748 Status: Signed [employer] [facility] Supervisor: Elif Sidhu RN (Registered Nurse) Dr Fitzgerald here and aware that pt is wearing oxymask at 2 liters at this due to sedation. P t with O2 sat of 94%. Restin quietly. Call light within reach. onver jill Transaction, Provider Unknown - 12/15/2013 5:23 PM PDT Nurse Progress Note by Elif Sidhu RN at 12/15/131722 Author: Elif Sidhu RN Service: (none) Author Type: Registered Nurse Filed: 12/15/131723 Date of Service: 12/15/131722 Status: Signed [employer] Supervisor: Elif Sidhu RN (Registered Nurse) Pt returned from [facility]. Dr Fitzgerald here to see pt. onver jill Transaction, Provider Unknown - 12/15/2013 5:17 PM PDT Case Management by Nilda Hassan RN at 12/15/131716 Author: Nilda Hassan RN Service: (none) Author Type: Registered Nurse Filed: 12/15/131719 Date of Service: 12/15/131716 Status: Signed [employer] Supervisor: Nilda Hassan RN (Registered Nurse) Attempted to meet w/pt but gone from room for a procedure. Son Osorio's [facility] as support person, , likely to transport pt home when appropriate. Pt live s in [place], [place] onver jill Transaction, Provider Unknown - 12/15/2013 4:53 PM PDT Nurse Progress Note by Elif Sidhu RN at 12/15/131652 Author: Elif Sidhu RN Service: (none) Author Type: Registered Nurse Filed: 12/15/131652 Date of Service: 09/10/14 1653 Status: Signed [employer] Supervisor: Elif Sidhu RN (Registered Nurse) Dr Fitzgerald paged with return call. Given results of VQ Scan. CTA ordered. onver jill Transaction, Provider Unknown - 12/15/2013 3:52 PM PDT Nurse Progress Note by Elif Sidhu RN at 12/15/13 155 Author: Elif Sidhu RN Service: (none) Author Type: Registered Nurse Filed: 12/15/131551 Date of Service: 12/15/131551 Status: Signed [employer] Supervisor: Elif Sidhu RN (Registered Nurse) Pt with stated claustrophobia. Ativan given per order. Pt tolerated well. onver jill Transaction, Provider Unknown - 12/15/2013 3:35 PM PDT Nurse Progress Note by Elif Sidhu RN at 12/15/13 153 Author: Elif Sidhu RN Service: (none) Author Type: Registered Nurse Filed: 12/15/131551 Date of Service: 12/15/131534 Status: Signed [employer] [facility] Supervisor: Elif Sidhu RN (Registered Nurse) Dr Fitzgerald paged with return call. New order received. onver jill Transaction, Provider Unknown - 12/15/2013 3:30 PM PDT Nurse Progress Note by Elif Sidhu RN at 12/15/13 153 Author: Elif Sidhu RN Service: (none) Author Type: Registered Nurse Filed: 12/15/13 153 Date of Service: 12/15/131529 Status: Signed [employer] Supervisor: Elif Sidhu RN (Registered Nurse) Pt to NM for VQ Scan. ophthalmic tech notified. onver jill Transaction, Provider Unknown - 12/15/2013 2:30 PM PDT Nurse Progress Note by Elif Sidhu RN at 12/15/13 1430 Author: Elif Sidhu RN Service: (none) Author Type: Registered Nurse Filed: 12/15/13 1456 Date of Service: 12/15/13 1430 Status: Signed [employer] [facility] Supervisor: Elif Sidhu RN (Registered Nurse) Dr Fitzgerald paged with return call. Given results of D-Dimer 0.72. No new orders received. S trict bedrest verified. Pt to use bedpan for toileting. onver jill Transaction, Provider Unknown - 12/15/2013 1:35 PM PDT Nurse Progress Note by Elif Sidhu RN at 12/15/13 1335 Author: Elif Sidhu RN Service: (none) Author Type: Registered Nurse Filed: 12/15/13 1406 Date of Service: 12/15/13 1335 Status: Signed [employer] Supervisor: Elif Sidhu RN (Registered Nurse) Pt transferred via stretcher from ED to CDU Room 1115 per KOBE Pina. Bedside report per Cielo johnston RN. Pt stable and voices understanding of plan of care. Call light within reach. onver jill Transaction, Provider Unknown - 12/15/2013 12:11 PM PDT Progress Notes by Guillermo Zaragoza RPH at 12/15/13 1211 Author: Guillermo Zaragoza RPH Service: (none) Author Type: Pharmacist Filed: 12/15/13 1211 Date of Service: 12/15/13 1211 Status: Signed [employer] [facility] Supervisor: Guillermo Zaragoza RPH (Pharmacist) Pharmacy will renal dose as needed once labs are available. onver jill Transaction, Provider Unknown - 12/15/2013 11:54 AM PDT Case Management by EVELIN Pierce at 12/15/13 0599 Author: EVELIN Pierce Service: (none) Author Type: Replenishment Associate Filed: 12/15/13 2051 Date of Service: 12/15/13 1154 Status: Signed [employer] [employer] [facility] Supervisor: EVELIN Pierce (Replenishment Associate) 12/15/13 1153 Discharge Planning Evaluation Admitting Diagnosis Chest Pain - transfer from [place]' Readmission No Living Arrangements Alone Support Systems Children Type of Residence Private residence House type House-1 story Steps to enter 4 Bathrooms on 1st Floor 1-Full Independent with ADL's Yes Independent with Mobility Yes Mental Status Oriented Prior functional status no DME Resources Name of Pharmacy [facility] in [place] Met with: Pt and discussed discharge planning, Pt is a 73 y.o., female Patient's PCP is: KRYSTYNA LUCIANO Patient's insurance: Medicare / Commercial other Coverage concerns: Medication coverage/concerns: Community resources utilized / needed: Pt is on O2 at night. Assistance in transportation: Son also lives in [place] Identification of any specific education / training: Barriers to Discharge / Alternative housing needed: Anticipated DCP: Home pending any significant change in mobility Esther Mckenzie docume nted in this encounter H&P Notes Afshin Fitzgerald MD - 12/15/2013 4:32 PM PDTFormatting of this note might be differ ent from the original. H&P by Afshin Fitzgerald MD at 12/15/13 1632 Author: Afshin Fitzgerald MD Service: (none) Author Type: Physician Filed: 12/16/13 1256 Date of Service: 12/15/13 1632 Status: Signed [employer] [facility] Supervisor: Afshin Fitzgerald MD (Physician) Related Notes: Original Note by Afshin Fitzgerald MD (Physician) filed at 12/15/13 1640 [facility] Service: Hospitalist Admission History & Physical Date of Admission: 12/15/2013 Requesting Physician: Emergency Department Reason for Admission: NSTEMI History Obtained From: patient CHIEF COMPLAINT: CP HISTORY OF PRESENT ILLNESS The patient is a 73 y.o. female with significant past medical history of History of hyperte nsion, dyslipidemia, osteoarthritis, lymphoma status post chemotherapy, COPD, and sleep apne a on nocturnal oxygen who presented to the ED with the sudden onset of substernal chest pres sure radiating to the jaw, moving to the arms bilaterally associated with some diaphoresis a nd shortness of breath that woke her up from sleep in the morning. [facility] ED where her troponin was positive and so she was transferred to our facility. Repeat troponin was mildly elevated at 0.16. She was mildly hypoxic, requiring 2 to 3 L of o xygen to keep her saturations above 88%. Chest x-ray was unremarkable. EKG did show ST depre ssion in leads V1, V2, and V3. Right-sided EKG performed did not show any ST elevation in ri ght lateral leads. The patient did receive a dose of nitroglycerin and her blood pressure pl ummeted so she had to be given boluses of fluid to get her blood pressure up. The patient is currently chest pain free. She has had a stress test done about 4 months ago which was nega tive. She gets intermittent chest pain for 2 years, of unknown cause. She does have a histor y of PE. D-dimer ordered was elevated at 0.79. VQ scan and ultrasound Doppler of the lower e xtremities is pending. REVIEW OF SYSTEMS Other than those mentioned above 10 pt ROS neg Past Medical History Diagnosis Date COPD (chronic [...] tablet Take 25 mg by mouth nightly. Yes Historical Provider metoclopramide (REGLAN) 10 MG tablet Take 10 mg by mouth 4 (four) times daily before meals and nightly. Yes Historical Provider metoprolol (LOPRESSOR) 25 MG tablet Take 25 mg by mouth every evening. Takes 1.5 tabs at be dtime Yes Historical Provider misoprostol (CYTOTEC) 200 MCG tablet Take 200 mcg by mouth 2 (two) times daily. Yes Histo rical Provider nitroGLYCERIN (NITROSTAT) 0.[address] 0.4 mg under the tongue every 5 (five) min utes as needed for Chest pain. Yes Historical Provider topiramate (TOPAMAX) 100 MG tablet Take 100 mg by mouth 2 (two) times daily. Yes Historic al Provider cyclobenzaprine (FLEXERIL) 5 MG tablet Take 5 mg by mouth 3 (three) times daily as needed f or Muscle spasms. Historical Provider diclofenac (VOLTAREN) 75 MG EC tablet Take 75 mg by mouth 2 (two) times daily. Historica l Provider sumatriptan (IMITREX) 100 MG tablet Take 100 mg by mouth as needed for Migraine. Histori lillian Provider Allergies Allergen Reactions Penicillins Angioedema Codeine Nausea and Vomiting Tetanus Toxoid GI Distress History reviewed. No pertinent family history. History Social History Marital Status: Spouse Name: N/A Number of Children: N/A Years of Education: N/A Occupational History Not on file. Social History Main Topics Smoking status: Former Smoker Smokeless tobacco: Not on file Alcohol Use: No Drug Use: No Sexually Active: No Other Topics Concern Not on file Social History Narrative PHYSICAL EXAM Vital Signs: BP 110/60 | Pulse 68 | Temp(Src) 97.9 F (36.6 C) (Oral) | Resp 16 | Ht 1.626 m (5' 4") | Wt 64.411 kg (142 lb) | BMI 24.36 kg/m2 | SpO2 97% | ? No General Appearance: awake, alert, oriented, in no acute distress Skin: Skin color, texture, turgor normal. No rashes or lesions. Eyes: No gross abnormalities. Lungs: Normal expansion. Clear to auscultation. No rales, rhonchi, or wheezing. Heart: Heart sounds are normal. Regular rate and rhythm without murmur, gallop or rub. Abdomen: Soft, non-tender, normal bowel sounds. No bruits, organomegaly or masses. Extremities: Extremities warm to touch, pink, with no edema. Musculoskeletal: negative Neurologic: negative DATA No results found for this basename: WBC, HGB, HCT, PLT, NEUTOPHILPCT, MONOPCT, EOSPCT, in the last 168 hours No results found for this basename: NA, K, CL, CO2, BUN, CREATININE, CALCIUM, LABALBU, PROT , BILITOT, ALKPHOS, ALT, AST, GLUCOSE, in the last 168 hours Phosphorus: No results found for this basename: PHOS No components found with this basename: LABALBU, No results found for this basename: MG, in the last 168 hours No results found for this basename: AMYLASE, in the last 168 hours No results found for this basename: PHART, PO2ART, CNE2MQI, B1XFVBJO, BEART, in the last 1 68 hours No results found for this basename: APTT, INR, PTT, in the last 168 hours No results found for this basename: TSH, T3FREE, FREET4, in the last 168 hours No results found for this basename: CKTOTAL, TROPONINI, TROPONINT, CKMBINDEX, in the last 168 hours Radiology X-ray Chest 2 View Frontal & Lateral 12/15/2013 FINDINGS/ IMPRESSION: Bibasilar atelectasis, more prominent on the left. Lungs are otherwise clear. Large hiatal hernia with air-fluid level. Mediastinal contours are n ormal. Heart size is normal. No pneumothorax, no pleural effusion. No acute osseous abnorm ality. LEM LIST [employer] NSTEMI Patient Active Problem List Diagnosis NSTEMI (non-ST elevated myocardial infarction) Dyslipidemia COPD (chronic obstructive pulmonary disease) Obstructive sleep apnea (adult) (pediatric) OA (osteoarthritis) ASSESSMENT & PLAN 1. Non-ST elevation VT. The patient is on beta-blockers, aspirin, heparin drip. Cardiology consulted. Dr. Man to see the patient today. I have stopped her NSAIDs that might increas e the risk of future non-ST VT. No Imitrex as that can worse her VT. 2. Mild hypoxemia. The patient usually uses 2 to 3 L of oxygen at nighttime. Continue oxyge n. Check VQ scan to rule out PE. 3. Elevated D-dimer. Check VQ scan. 4. Dyslipidemia. Continue statin. 5. Osteoarthritis. Continue p.r.n. pain medicine. 6. DVT prophylaxis. On heparin drip. Code Status: Full Code Primary Care Physician: KRYSTYNA Fitzgerald MD 12/15/2013 4:39 PM documented in this encounter Consult Notes Alqaisi, Danii - 12/16/2013 9:31 AM PDT Consults by Danii Kimble MD at 12/16/13 0931 Author: Danii Kimble MD Service: Cardiology Author Type: Physician Filed: 12/27/13 1018 Date of Service: 12/16/13930 Status: Addendum [employer] General Supervisor: Danii Kimble MD (Physician) Related Notes: Original Note by Danii Kimble MD (Physician) filed at 12/24/13 1045 [facility] Service: Cardiology Initial Consult Note Name of Commercial Carpenter: Cristal Coughlin PA-C Date of Admission: 12/15/2013 Reason for Consultation: Chest pain Requesting Physician: Dr. Hoover, Cardiology History Obtained From: patient CHIEF COMPLAINT: Chest pain. HISTORY OF PRESENT ILLNESS: Ms. Brasher is a 73-year-old female who was transferred to our facility from [facility], where she arrived yesterday by private vehicle for complaints of chest pain. The patient states that she awoke from her sleep at 5:30 yesterday morning with a sharp pre ssure-type chest pain that radiated across her shoulders and up into her jaw. She described this pain as a 10/10 with associated weakness and shortness of breath. The last episode of c hest pain she had previous to this was 3 weeks ago, that occurred again while she was lying in bed but lasted a few hours and was relieved with nitroglycerin. She described this pain a s a pressure-type pain radiated across her shoulders and into her jaw that was again a 10/10 . She has noted chest pain for years; however, she has noted that over the last couple of mo nths it has progressed in frequency and duration, requiring the use of nitroglycerin. She recently had a loop recorder implanted several weeks ago at [facility] in [place] for complaints of ongoing tachycardia and near syncope. She has no formal exercise program; however, she remains active at home. She has a history of tobacco use, quit in 1989; however, smoked for 40 years, 3 to 4 packs per day. She denies any family history of coronary disease. REVIEW OF SYSTEMS Negative except for pertinent items noted in HPI. Review of Systems Constitutional: Negative for fatigue. HENT: Negative for nosebleeds. Eyes: Negative for visual disturbance. Respiratory:Shortness of breath. Cardiovascular: Chest pain, palpitations. Gastrointestinal: Negative for nausea, vomiting, abdominal pain and blood in stool. Genitourinary: Negative for hematuria. Musculoskeletal: Negative for myalgias, back pain and arthralgias. Skin: Negative for color change. Neurological: Negative for dizziness, syncope and numbness. Hematological: Does not bruise/bleed easily. Psychiatric/Behavioral: The patient is not nervous/anxious. 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 metoclopramide (REGLAN) 10 MG tablet Take 10 [...] (five) minutes as needed for Chest pain. topiramate (TOPAMAX) 100 MG tablet Take 100 mg by mouth 2 (two) times daily. cyclobenzaprine (FLEXERIL) 5 MG tablet Take 5 mg by mouth 3 (three) times daily as need ed for Muscle spasms. diclofenac (VOLTAREN) 75 MG EC tablet Take 75 mg by mouth 2 (two) times daily. sumatriptan (IMITREX) 100 MG tablet Take 100 mg by mouth as needed for Migraine. Inhospital Medications amitriptyline 25 mg Oral Nightly aspirin 81 mg Oral Daily with breakfast ipratropium-albuterol 3 mL Nebulization Q6H metoclopramide 10 mg Oral 4x Daily AC & HS metoprolol 25 mg Oral BID topiramate 100 mg Oral BID heparin 50 units/mL in Dextrose 5% 14 Units/kg/hr (12/16/13 0200) magnesium sulfate Or magnesium sulfate Or magnesium sulfate sodium chloride (IV) 75 mL/hr at 12/16/13 0312 sodium phosphate IVPB 15 mmol Or sodium phosphate IVPB 30 mmol Allergies Allergies Allergen Reactions Penicillins Angioedema Codeine Nausea and Vomiting Tetanus Toxoid GI Distress FAMILY HISTORY History reviewed. No pertinent family history. SOCIAL HISTORY History Social History Marital Status: Spouse Name: N/A Number of Children: N/A Years of Education: N/A Occupational History Not on file. Social History Main Topics Smoking status: Former Smoker Smokeless tobacco: Not on file Alcohol Use: No Drug Use: No Sexually Active: No Other Topics Concern Not on file Social History Narrative PHYSICAL EXAM Vital Signs: BP 109/53 | Pulse 64 | Temp(Src) 98.1 F (36.7 C) (Oral) | Resp 16 | Ht 1.626 m (5' 4") | Wt 64.411 kg (142 lb) | BMI 24.36 kg/m2 | SpO2 99% | ? No No intake or output data in the 24 hours ending 12/16/13 0932 Vent Settings Last 24hrs: PA Catheter Constitutional: Well-developed. Neck: No JVD present. No thyromegaly present. Cardiovascular: Regular rhythm, S1 normal and S2 normal. No murmur heard. Pulses: Carotid pulses are 2+ on the right side, and 2+ on the left side. Radial pulses are 2+ on the right side, and 2+ on the left side. Pulmonary/Chest: Effort normal and breath sounds normal. No wheezes. No rales. Abdominal: Soft. No tenderness. Musculoskeletal: No edema. Neurological: Alert. No cranial nerve deficit. Skin: Warm and dry. DATA Recent Labs Lab 12/16/13 0546 NA 138 K 4.1 CO2 22* BUN 8 CREATININE 0.47* MG 2.2 Recent Labs Lab 12/16/13 0546 12/16/13 0020 12/15/13 1826 CKTOTAL 948* 929* -- CKMB 169.9* 181.7* -- CKMBINDEX 17.9 19.6 -- TROPONINI 18.1* 12.6* 4.53* Recent Labs Lab 12/16/13 0546 WBC 11.4* HGB 11.5 HCT 36.3 MCV 92.0 PLT 267 EKG: December 15, 2013 - Reviewed personally, showed normal sinus rhythm, normal P-wave, normal RI interval, normal QRS duration and voltage, ST-depression in the anteroseptal leads. Last Echo: Last stress test: July 2013 at outside facility - nuclear stress test, awaiting results. Last cath: Carotid US: AAA screening: Lower extremity US: OTHERS: A 24-hour Holter monitor done at an outside facility, July 2013, showed average heart rate 99 beats per minute, occasional PVCs and PACs, no tachy or bradyarrhythmias. ASSESSMENT & PLAN Ms. Brasher is a 73-year-old female with the following medical problems: 1. COPD. 2. Non-Hodgkin's lymphoma in remission, status post chemotherapy. 3. Palpitations with loop recorder implantation. 4. Previous history of tobacco use, quit in 1989, smoked for 40 years 4 packs per day. who was admitted with a high risk non-ST elevation VT with recurrent chest pain and high ri sk features. We are going to proceed with urgent left heart catheterization. Further recomme ndations to follow the heart catheterization. Patient was seen and examined by Dr. Kimble and plan was discussed and agreed upon. Thank you for allowing us to participate in the care of this patient. Code Status: Full Code Primary Care Physician: KRYSTYNA Coughlin PA-C 12/16/2013 documented in this encount er ED Notes Conversion Transaction, Provider Unknown - 12/15/2013 1:19 PM PDTFormatting of this note m ight be different from the original. ED Notes by Jahaira Negron RN at 12/15/131318 Author: Jahaira Negron RN Service: (none) Author Type: Registered Nurse Filed: 12/15/131318 Date of Service: 12/15/131318 Status: Signed [employer] General Supervisor: Jahaira Negron RN (Registered Nurse) Right sided EKG done completed by [facility] per order Jahaira Negron RN 09/10/14 1319 onver jill Transaction, Provider Unknown - 12/15/2013 12:49 PM PDT ED Notes by Jahaira Negron RN at 12/15/13 1249 Author: Jahaira Negron RN Service: (none) Author Type: Registered Nurse Filed: 12/15/13 1250 Date of Service: 12/15/13 1249 Status: Signed [employer] General Supervisor: Jahaira Negron RN (Registered Nurse) Hospitalist at bedside Jahaira Negron RN 12/15/13 1250 onver jill Transaction, Provider Unknown - 12/15/2013 10:59 AM PDT ED Notes by Jahaira Negron RN at 12/15/13 1059 Author: Jahaira Negron RN Service: (none) Author Type: Registered Nurse Filed: 12/15/13 1100 Date of Service: 12/15/13 1059 Status: Signed [employer] General Supervisor: Jahaira Negron RN (Registered Nurse) NS discontinued on arrival Jahaira Negron RN 12/15/13 1100 onver jill Transaction, Provider Unknown - 12/15/2013 10:59 AM PDT ED Notes by Jahaira Negron RN at 12/15/13 1059 Author: Jahaira Negron RN Service: (none) Author Type: Registered Nurse Filed: 12/15/13 1059 Date of Service: 12/15/13 1059 Status: Signed [employer] General Supervisor: Jahaira Negron RN (Registered Nurse) Tele called for monitoring--Sarah Negron RN 12/15/13 1059 onver jill Transaction, Provider Unknown - 12/15/2013 10:57 AM PDT ED Notes by Jahaira Negron RN at 12/15/13 1057 Author: Jahaira Negron RN Service: (none) Author Type: Registered Nurse Filed: 12/15/13 105 Date of Service: 12/15/13 105 Status: Signed [employer] General Supervisor: Jahaira Negron RN (Registered Nurse) NTG patch removed per Dr. Shaquille Negron RN 12/15/13 105 onver jill Transaction, Provider Unknown - 12/15/2013 10:49 AM PDT ED Notes by Jahaira Negron RN at 12/15/13 104 Author: Jahaira Negron RN Service: (none) Author Type: Registered Nurse Filed: 12/15/13 105 Date of Service: 12/15/13 104 Status: Signed [employer] General Supervisor: Jahaira Negron RN (Registered Nurse) 2 patient identifiers checked, patient gowned, side rails up x2. ID band placed on patient , call light instructed on and given to patient. Jahaira Negron RN 12/15/13 105 onver jill Transaction, Provider Unknown - 12/15/2013 10:44 AM PDT ED Notes by Jahaira Negron RN at 12/15/13 1044 Author: Jahaira Negron RN Service: (none) Author Type: Registered Nurse Filed: 12/15/13 1318 Date of Service: 12/15/13 104 Status: Addendum [employer] General Supervisor: Jahaira Negron RN (Registered Nurse) Related Notes: Original Note by Jahaira Negron RN (Registered Nurse) filed at 12/15/13 [address] [facility], she states she was awakened by sharp achy pain in her chest, pressure that radiates up her left neck and down rashmi arms, she has no energy, she de scribes ast 10/10 pain, she has no known heart problems but has an 'implanted heart monitor' , she see's a doctor in [place] for that, 'its not showing much' she states she has had this pain for two years intermittently, she won't go to the doctor for this because it happe ns so much and it will go away, she was seen at [facility] and given ASA 324mg , NTG tab, she had morphne 4mg and zofran 8mg with a NTG paste which was put on and removed on arrival per order, she had 1 Liter bag of Ns Jahaira Negron RN 12/15/13 1047 Jahaira Negron RN 12/15/13 1318 athes on, Harrison Penaloza MD - 12/15/2013 10:44 AM PDT ED Provider Notes by Harrison Corbin MD at 12/15/13 1044 Author: Harrison Corbin MD Service: (none) Author Type: Physician Filed: 12/15/13 1342 Date of Service: 12/15/13 1044 Status: Signed [employer] General Supervisor: Harrison Corbin MD (Physician) Procedure Orders: 1. 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 has implanted heart monitor. 20 ga R AC Relevant Medications: 12 mg morphine, 8 mg zofran, NTG 1" Current Reported Vital Signs: 120/60, 50-60 SB (12/15/13 0935 : Hetal Montoya, KOBE) History of Present Illness 10:44 AM Patient Identification Nataly Brasher is a 73 y.o. female. Patient information was obtained from patient. History/Exam limitations: none. Patient presented to the Emergency Department by: Ambulance Chief Complaint Chief Complaint Patient presents with Chest Pain intermittently for two years, worsened this am 10/10 pain The patient presents to ED with complaints of chest pain. Pt is a transfer from [facility]. Onset of symptoms was this morning, with an improving course since that time. Pt reports the pain woke her up from sleep. The symptoms are described to be of moderate severity. Martine n is located in center and L sided chest with radiation up the neck and down both arms and i s described as "sharp" pain as well as a "pressure". Pt states that her pain has improved b ut still rates this pain a 4/10. Pt states that this pain is causing her to feel weakened. P t denies any palpations, nausea, vomiting, abd pain, or urinary symptoms. Pt states she has had similar pain in the past however this pain has not subsided. Pt states that she has a loop recorder in place due to rhythm abnormalities. Pt reports the monitor has not showed any irregularities. Pt reports she had a stress test and echo done within the last few months. Pt has h/o COPD, Pt denies history of VT or stents. 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 Social History Main Topics Smoking status: Former Smoker Smokeless tobacco: Not on file Alcohol Use: No Drug Use: No Sexually Active: Not on file Other Topics Concern Not on file Social History Narrative History reviewed. No pertinent family history. Review of Systems Constitutional: Positive for feeling weakened secondary to this pain Negative for fever, chills Eyes: Negative for vision changes Nose: Negative for congestion, nosebleeds Throat: Negative for sore throat CV/Resp: Positive for chest pain with radiation up the neck and down both arms Negative for cough GI: Negative for abdominal pain, nausea, vomiting, or diarrhea : Negative for urinary problems Musculoskeletal: Negative for back pain, joint pain Skin: Negative for rash Neuro/Psych: Negative for headache Endo/heme/Lymph: Negative for swollen lymph nodes, easy bruising All other systems reviewed and negative except as noted. Physical Exam BP 108/59 | Pulse 90 | Temp(Src) 97.6 F (36.4 C) (Oral) | Resp 14 | Ht 1.626 m (5' 4") | Wt 64.411 kg (142 lb) | BMI 24.36 kg/m2 | SpO2 90% VS interpretation: WNL Pulse Oximetry interpretation: Normal General: Alert, NAD Eyes: Normal inspection, EOMI, PERRL ENT: Normal pharynx Neck: Supple, no meningismus CV: Regular rate, rhythm. Normal heart tones. Respiratory: No respiratory distress. Lungs clear to auscultation bilaterally Abdomen: Soft, non-tender, non-distended. No guarding or rebound Back: Normal inspection, normal ROM Extremities: Atraumatic, normal ROM, no significant lower extremity edema Skin: Warm, dry. No rash Neuro: No gross focal deficits. Motor and sensory grossly intact Psych: Normal affect Medical Decision Making and Emergency Department Course ED Department Course MDM: Pt arrives form [facility] in [place], where she presented with CP. Pt anne s had similar episodes in past. Denies h/o of CAD, but has had rhythm disturbances in the p ast. She was given nitro and morphine with some improvement in symptoms but she continues t o have pain. She is in no distress. She arrived with nitro paste in place, but I have aske d the nurse to remove this incase she needs a stress test. EKG from [facility] sh ows sinus bradycardia without any acute changes. Initial EKG here, reveals some nonspecific ST-T changes in the precordial lead. Pt has already had Aspirin. CXR from [facility] is reported to be unremarkable. Labs from [facility] have been reviewed, CBC is unremarkable, CMP is unremarkable except for glucose 139 and potassium of 3.5. Pt's CKMB and troponin are unremarkable, as well as the myoglobin, though her relative index for CKMB is slightly elevated at 6.2. Ordered repeat troponin here. Will plan on admission for furt her evaluation. Troponin is elevated at 0.16. I will start heparin. 11:34 AM Dicussed case with Dr. Fitzgerald, hospitalist, who accepts pt for admission and requ ests that I write some basic transition orders. Dr. Fitzgerald came to the ED and evaluated the patient. He requested R-sided EKG. Patient w ill need close monitoring and repeat labs. Cannot exclude ACS. Concerning that troponin is mildly elevated. Records Reviewed Old medical records. Nursing notes. No prior ED visits or medical records available for review Laboratory Evaluation Results Procedure Component Value Ref Range Date/Time POC cardiac troponin [[id number]] (Abnormal) Collected: 12/15/13 1102 Order Status: Completed Updated: 12/15/13 1115 POC CARDIAC TROPONIN 0.16 (H) 0.00 - 0.10 ng/mL I personally reviewed the lab results and they have been posted to the chart. Pertinent po sitive and negative findings have been addressed appropriately. Radiology and EKG Evaluation Imaging Results None EK Normal sinus rhythm at 80 bmp Normal P waves Normal RI interval Normal QRS ST and T changes in V1-V5 nonspecific Viewed and interpreted by me: Harrison Corbin MD ED Diagnosis Final diagnosis Chest pain Disposition: ED Disposition Admit/Observation Bed request special needs: Telemetry Diagnosis?: chest pain Procedures Additional Documentation Critical Care Performed by: HARRISON CORBIN Authorized by: HARRISON CORBIN Total critical care time: 30 minutes Critical care time was exclusive of separately billable procedures and treating other patie nts. Critical care was necessary to treat or prevent imminent or life-threatening deterioration of the following conditions: circulatory failure and cardiac failure. Attending Note: Documentation assistance provided by Clint Grover and Amalia Moreau (Scribe). Information recorded by the scribe has been reviewed and validated by me. I ag ree with its contents. MD Harrison Sotomayor MD 12/15/13 1342 onversion Transact ion, Provider Unknown - 12/15/2013 10:37 AM PDTFormatting of this note might be different fr om the original. ED Notes by Hetal Montoya RN at 12/15/13 1037 Author: Hetal Montoya RN Service: (none) Author Type: Registered Nurse Filed: 12/15/13 1037 Date of Service: 12/15/13 1037 Status: Signed [employer] General Supervisor: Hetal Montoya RN (Registered Nurse) Bed: 02 Expected date: Expected time: Means of arrival: Comments: onver jill Transaction, Provider Unknown - 12/15/2013 10:28 AM PDT ED Notes by Hetal Montoya RN at 12/15/13 1028 Author: Hetal Montoya RN Service: (none) Author Type: Registered Nurse Filed: 12/15/13 1029 Date of Service: 12/15/13 102 Status: Signed [employer] General Supervisor: Hetal Montoya RN (Registered Nurse) Pt from [facility], pain upon EMS pickup 09/14, down to 4/10 after 2 doses of mo rphine. Hetal Montoya RN 12/15/13 1029 docume nted in this encounter Miscellaneous Notes Plan of Care - Conversion Transaction, Provider Unknown - 12/16/2013 12:18 PM PDT Plan of Care by Tom Cheatham RN at 12/16/13 1218 Author: Tom Cheatham RN Service: (none) Author Type: Registered Nurse Filed: 12/16/13 1218 Date of Service: 12/16/131217 Status: Signed [employer] General Supervisor: Tom Cheatham RN (Registered Nurse) Problem: Pain Goal: Patient s pain/discomfort is manageable Assess and monitor patient s pain using appropriate pain scale. Collaborate with interdis ciplinary team and initiate plan and interventions as ordered. Re-assess patient s pain le dmitriy approximately 1-2 hours after pain management intervention. Premedicate as needed. Outcome: Progressing Assess and monitor patients using pain scale, collaborate with interdisciplinary team and i nitiate plan and interventions as ordered. Reassess pain level after pain management docume nted in this encounter Plan of Treatment Not on filedocumented as of this encounter Procedures + +--------+ + + + | Procedure Name | Priori | Date/Time | Associated Diagnosis | Comments | | | ty | | | | + +--------+ + + + | ECG 12 LEAD | Routin | 12/17/2013 | | Results for this | | | e | 6:53 AM | | procedure are in the | | | | PDT | | results section. | + +--------+ + + + | EXTERNAL LAB: CBC | Routin | 12/17/2013 | | Results for this | | | e | 4:32 AM | | procedure are in the | | | | PDT | | results section. | + +--------+ + + + | CK TOTAL | Routin | 12/17/2013 | | Results for this | | | e | 4:32 AM | | procedure are in the | | | | PDT | | results section. | + +--------+ + + + | BASIC METABOLIC | Routin | 12/17/2013 | | Results for this | | PANEL | e | 4:32 AM | | procedure are in the | | | | PDT | | results section. | + +--------+ + + + | CV CARDIAC PROCEDURE | Routin | 12/16/2013 | | Results for this | | | e | 6:32 PM | | procedure are in the | | | | PDT | | results section. | + +--------+ + + + | CV CARDIAC PROCEDURE | Routin | 12/16/2013 | | Results for this | | | e | 6:32 PM | | procedure are in the | | | | PDT | | results section. | + +--------+ + + + | ACTIVATED CLOTTING | Routin | 12/16/2013 | | Results for this | | TIME | e | 6:08 PM | | procedure are in the | | | | PDT | | results section. | + +--------+ + + + | ACTIVATED CLOTTING | Routin | 12/16/2013 | | Results for this | | TIME | e | 5:35 PM | | procedure are in the | | | | PDT | | results section. | + +--------+ + + + | PTT | Routin | 12/16/2013 | | Results for this | | | e | 4:15 PM | | procedure are in the | | | | PDT | | results section. | + +--------+ + + + | TROPONIN I | Routin | 12/16/2013 | | Results for this | | | e | 11:46 AM | | procedure are in the | | | | PDT | | results section. | + +--------+ + + + | CK-MB | Routin | 12/16/2013 | | Results for this | | | e | 11:46 AM | | procedure are in the | | | | PDT | | results section. | + +--------+ + + + | CK TOTAL | Routin | 12/16/2013 | | Results for this | | | e | 11:46 AM | | procedure are in the | | | | PDT | | results section. | + +--------+ + + + | ECHO COMPLETE | Routin | 12/16/2013 | | Results for this | | | e | 10:15 AM | | procedure are in the | | | | PDT | | results section. | + +--------+ + + + | PTT | Routin | 12/16/2013 | | Results for this | | | e | 8:55 AM | | procedure are in the | | | | PDT | | results section. | + +--------+ + + + | ECG 12 LEAD | Routin | 12/16/2013 | | Results for this | | | e | 7:29 AM | | procedure are in the | | | | PDT | | results section. | + +--------+ + + + | EXTERNAL LAB: CBC | Routin | 12/16/2013 | | Results for this | | | e | 5:46 AM | | procedure are in the | | | | PDT | | results section. | + +--------+ + + + | LIPID PANEL | Routin | 12/16/2013 | | Results for this | | | e | 5:46 AM | | procedure are in the | | | | PDT | | results section. | + +--------+ + + + | TROPONIN I | Routin | 12/16/2013 | | Results for this | | | e | 5:46 AM | | procedure are in the | | | | PDT | | results section. | + +--------+ + + + | CK-MB | Routin | 12/16/2013 | | Results for this | | | e | 5:46 AM | | procedure are in the | | | | PDT | | results section. | + +--------+ + + + | TSH | Routin | 12/16/2013 | | Results for this | | | e | 5:46 AM | | procedure are in the | | | | PDT | | results section. | + +--------+ + + + | PHOSPHORUS | Routin | 12/16/2013 | | Results for this | | | e | 5:46 AM | | procedure are in the | | | | PDT | | results section. | + +--------+ + + + | MAGNESIUM | Routin | 12/16/2013 | | Results for this | | | e | 5:46 AM | | procedure are in the | | | | PDT | | results section. | + +--------+ + + + | CK TOTAL | Routin | 12/16/2013 | | Results for this | | | e | 5:46 AM | | procedure are in the | | | | PDT | | results section. | + +--------+ + + + | BASIC METABOLIC | Routin | 12/16/2013 | | Results for this | | PANEL | e | 5:46 AM | | procedure are in the | | | | PDT | | results section. | + +--------+ + + + | POTASSIUM | Routin | 12/16/2013 | | Results for this | | | e | 3:30 AM | | procedure are in the | | | | PDT | | results section. | + +--------+ + + + | PTT | Routin | 12/16/2013 | | Results for this | | | e | 2:03 AM | | procedure are in the | | | | PDT | | results section. | + +--------+ + + + | TROPONIN I | Routin | 12/16/2013 | | Results for this | | | e | 12:20 AM | | procedure are in the | | | | PDT | | results section. | + +--------+ + + + | CK-MB | Routin | 12/16/2013 | | Results for this | | | e | 12:20 AM | | procedure are in the | | | | PDT | | results section. | + +--------+ + + + | PHOSPHORUS | Routin | 12/16/2013 | | Results for this | | | e | 12:20 AM | | procedure are in the | | | | PDT | | results section. | + +--------+ + + + | MAGNESIUM | Routin | 12/16/2013 | | Results for this | | | e | 12:20 AM | | procedure are in the | | | | PDT | | results section. | + +--------+ + + + | CK TOTAL | Routin | 12/16/2013 | | Results for this | | | e | 12:20 AM | | procedure are in the | | | | PDT | | results section. | + +--------+ + + + | MAGNESIUM | Routin | 12/15/2013 | | Results for this | | | e | 7:44 PM | | procedure are in the | | | | PDT | | results section. | + +--------+ + + + | ECG 12 LEAD | Routin | 12/15/2013 | | Results for this | | | e | 7:43 PM | | procedure are in the | | | | PDT | | results section. | + +--------+ + + + | TROPONIN I | Routin | 12/15/2013 | | Results for this | | | e | 6:26 PM | | procedure are in the | | | | PDT | | results section. | + +--------+ + + + | PTT | Routin | 12/15/2013 | | Results for this | | | e | 6:26 PM | | procedure are in the | | | | PDT | | results section. | + +--------+ + + + | CT ANGIOGRAM | Routin | 12/15/2013 | | Results for this | | PULMONARY | e | 5:22 PM | | procedure are in the | | | | PDT | | results section. | + +--------+ + + + | VAS LOWER EXTREMITY | Routin | 12/15/2013 | | Results for this | | VENOUS BILATERAL | e | 4:50 PM | | procedure are in the | | | | PDT | | results section. | + +--------+ + + + | NM LUNG PERFUSION | Routin | 12/15/2013 | | Results for this | | VENTILATION | e | 4:22 PM | | procedure are in the | | | | PDT | | results section. | + +--------+ + + + | XR CHEST 2 VIEWS | Routin | 12/15/2013 | | Results for this | | | e | 3:22 PM | | procedure are in the | | | | PDT | | results section. | + +--------+ + + + | ECG 12 LEAD | Routin | 12/15/2013 | | Results for this | | | e | 1:19 PM | | procedure are in the | | | | PDT | | results section. | + +--------+ + + + | D-DIMER | Routin | 12/15/2013 | | Results for this | | | e | 11:00 AM | | procedure are in the | | | | PDT | | results section. | + +--------+ + + + | B TYPE NATRIURETIC | Routin | 12/15/2013 | | Results for this | | PEPTIDE | e | 11:00 AM | | procedure are in the | | | | PDT | | results section. | + +--------+ + + + | ECG 12 LEAD | Routin | 12/15/2013 | | Results for this | | | e | 10:48 AM | | procedure are in the | | | | PDT | | results section. | + +--------+ + + + documented in this encounter Results ECG 12 lead (12/17/2013 6:53 AM PDT) + + + + + + | Component | Value | Ref Range | Performed | Pathologist | | | | | At | Signature | + + + + + + | DIAGNOSIS: | Normal sinus rhythmPoor | | EXTERNAL | | | | R - progressionST & T | | LAB | | | | wave abnormality, | | | | | | consider inferior | | | | | | ischemiaAbnormal ECGWhen | | | | | | compared with ECG of | | | | | | 16-DEC-2013 07:29,No | | | | | | significant change was | | | | | | foundConfirmed by | | | | | | REMINGTON GEORGE ([id number]) on | | | | | | 12/17/2013 1:27:33 PM | | | | + + + + + + + + | Specimen | + + | | + + + + + | Narrative | Performed At | + + + | Historically converted procedure from [facility] environment | EXTERNAL LAB | + + + + +---------+ + + | Performing | Address | City/State/Zipcode | Phone Number | | Organization | | | | + +---------+ + + | EXTERNAL LAB | | | | + +---------+ + + External Lab: CBC (12/17/2013 4:32 AM PDT) + + + + + + | Component | Value | Ref Range | Performed | Pathologist | | | | | At | Signature | + + + + + + | WBC | 10.8Comment: Testing | 3.8 - 11.0 K/uL | EXTERNAL | | | | performed at [facility], [address] | | LAB | | | | [address], | | | | | | [place] [address] | | | | + + + + + + | Non- | 3.71Comment: Testing | 3.70 - 5.10 | EXTERNAL | | | Red Blood | performed at [facility], [address] | M/uL | LAB | | | Cells | [address], | | | | | Counted | [place] [id number] | | | | + + + + + + | Hemoglobin | 10.8 (L)Comment: Testing | 11.3 - 15.5 | EXTERNAL | | | | performed at [facility], [address] | g/dL | LAB | | | | [address], | | | | | | [place] [address] | | | | + + + + + + | Hematocrit, | 34.1Comment: Testing | 34.0 - 46.0 % | EXTERNAL | | | POC | performed at [facility], [address] | | LAB | | | | [address], | | | | | | [place] [address] | | | | + + + + + + | MCV | 92.0Comment: Testing | 80.0 - 100.0 fl | EXTERNAL | | | | performed at [facility], [address] | | LAB | | | | [address], | | | | | | [place] [address] | | | | + + + + + + | MCH | 29.2Comment: Testing | 27.0 - 34.0 pg | EXTERNAL | | | | performed at [facility], [address] | | LAB | | | | [address], | | | | | | [place] [address] | | | | + + + + + + | MCHC | 31.7 (L)Comment: Testing | 32.0 - 35.5 | EXTERNAL | | | | performed at [facility], [address] | g/dL | LAB | | | | [address], | | | | | | [place] [address] | | | | + + + + + + | RDW-CV | 51.2Comment: Testing | 37 - 53 fl | EXTERNAL | | | | performed at [facility], [address] | | LAB | | | | [address], | | | | | | [place] [address] | | | | + + + + + + | Platelet | 247Comment: Testing | 150 - 400 K/uL | EXTERNAL | | | Count | performed at [facility], [address] | | LAB | | | Plasma | [address], | | | | | | [place] [address] | | | | + + + + + + | MPV | 9.1Comment: Testing | fl | EXTERNAL | | | | performed at [facility], [address] | | LAB | | | | [address], | | | | | | [place] [address] | | | | + + + + + + | Differentia | AUTOMATEDComment: | | EXTERNAL | | | l Type | Testing performed at | | LAB | | | | [facility], [address] | | | | | | [place] | | | | | | [address] | | | | + + + + + + | % Segmented | 53.2Comment: Testing | % | EXTERNAL | | | | performed at [facility], [address] | | LAB | | | Neutrophils | [address], | | | | | | [place] [address] | | | | + + + + + + | % | 34.1Comment: Testing | % | EXTERNAL | | | Lymphocytes | performed at [facility], [address] | | LAB | | | | [address], | | | | | | [place] [address] | | | | + + + + + + | % Monocytes | 12.1Comment: Testing | % | EXTERNAL | | | | performed at [facility], [address] | | LAB | | | | [address], | | | | | | [place] [address] | | | | + + + + + + | % | 0.2Comment: Testing | % | EXTERNAL | | | Eosinophils | performed at [facility], [address] | | LAB | | | | [address], | | | | | | [place] [address] | | | | + + + + + + | % Basophils | 0.4Comment: Testing | % | EXTERNAL | | | | performed at [facility], [address] | | LAB | | | | [address], | | | | | | [place] [address] | | | | + + + + + + | Absolute | 5.7Comment: Testing | 1.9 - 7.4 K/uL | EXTERNAL | | | Segmented | performed at [facility], [address] | | LAB | | | Neutrophils | [address], | | | | | | [place] [address] | | | | + + + + + + | Absolute | 3.7Comment: Testing | 1.0 - 3.9 K/uL | EXTERNAL | | | Lymphocytes | performed at [facility], [address] | | LAB | | | | [address], | | | | | | [place] [address] | | | | + + + + + + | Absolute | 1.3 (H)Comment: Testing | 0 - 0.8 K/uL | EXTERNAL | | | Monocytes | performed at [facility], [address] | | LAB | | | | [address], | | | | | | [place] [address] | | | | + + + + + + | Absolute | 0.0Comment: Testing | 0 - 0.5 K/uL | EXTERNAL | | | Eosinophils | performed at [facility], [address] | | LAB | | | | [address], | | | | | | [place] [address] | | | | + + + + + + | Absolute | 0.0Comment: Testing | 0 - 0.1 K/uL | EXTERNAL | | | Basophils | performed at [facility], [address] | | LAB | | | | [address], | | | | | | [place] [address] | | | | + + + + + + + + | Specimen | + + | Blood specimen | | (specimen) | + + + +---------+ + + | Performing | Address | City/State/Zipcode | Phone Number | | Organization | | | | + +---------+ + + | EXTERNAL LAB | | | | + +---------+ + + CK Total (12/17/2013 4:32 AM PDT) + + + + + + | Component | Value | Ref Range | Performed | Pathologist | | | | | At | Signature | + + + + + + | CK, Total | 372 (H)Comment: Testing | 30 - 240 U/L | EXTERNAL | | | | performed at [facility] [place] | | LAB | | | | [address];[place] | | | | | | [address] | | | | + + + [...] + +---------+ + + Basic Metabolic Panel (12/17/2013 4:32 AM PDT) + + + + + + | Component | Value | Ref Range | Performed | Pathologist | | | | | At | Signature | + + + + + + | Na | 137Comment: Testing | 135 - 143 | EXTERNAL | | | | performed at [facility], [address] | mmol/L | LAB | | | | [address], | | | | | | [place] [address] | | | | + + + + + + | K | 3.6Comment: Testing | 3.5 - 4.9 | EXTERNAL | | | | performed at [facility], [address] | mmol/L | LAB | | | | [address], | | | | | | [place] [address] | | | | + + + + + + | Cl | 111 (H)Comment: Testing | 99 - 109 mmol/L | EXTERNAL | | | | performed at [facility], [address] | | LAB | | | | [address], | | | | | | [place] [address] | | | | + + + + + + | CO2 | 23Comment: Testing | 23 - 32 mmol/L | EXTERNAL | | | | performed at [facility], [address] | | LAB | | | | [address], | | | | | | [place] [address] | | | | + + + + + + | Anion Gap | 7Comment: Testing | 5 - 20 mmol/L | EXTERNAL | | | | performed at [facility], [address] | | LAB | | | | [address], | | | | | | [place] [address] | | | | + + + + + + | Glucose, | 100 (H)Comment: Testing | 65 - 99 mg/dL | EXTERNAL | | | Fasting | performed at [facility], [address] | | LAB | | | | [address], | | | | | | [place] [address] | | | | + + + + + + | BUN | 7 (L)Comment: Testing | 8 - 25 mg/dL | EXTERNAL | | | | performed at [facility], [address] | | LAB | | | | [address], | | | | | | [place] [address] | | | | + + + + + + | Creatinine | 0.51Comment: Testing | 0.50 - 1.00 | EXTERNAL | | | | performed at [facility], [address] | mg/dL | LAB | | | | [address], | | | | | | [place] [address] | | | | + + + + + + | BUN/Creatin | 14Comment: Testing | | EXTERNAL | | | ine Ratio | performed at [facility], [address] | | LAB | | | | [address], | | | | | | [place] [address] | | | | + + + + + + | Calcium | 8.7Comment: Testing | 8.5 - 10.2 | EXTERNAL | | | | performed at [facility], [address] | mg/dL | LAB | | | | [address], | | | | | | [place] [address] | | | | + + + [...] | | | | | | at [facility], [address] | | | | | | [facility], | | | | | | [place] [address] | | | | + + + [...] + +---------+ + + CV CARDIAC PROCEDURE (12/16/2013 6:32 PM PDT) + + | Specimen | + + | | + + + + + | Narrative | Performed At | + + + | | | | | | | PROCEDURES 1. Left heart catheterization. 2. Selective coronary | | | angiogram. 3. Left ventricular pressure recording without left | | | ventriculogram. 4. Angioplasty for the distal right coronary artery | | | with the right atrioventricular groove artery with 2 non-overlapping | | | drug-eluting stent (Promus Premier 2.25 x 12 mm in the right | | | atrioventricular groove artery and Promus Premier 2.5 x 16 mm in the | | | distal right coronary artery). INDICATIONS Ms. Brasher is a | | | 73-year-old lady with a known history of hypertension, who presented | | | to the emergency room complaining of worsening chest pain for the | | | last 1 month that happens at rest, severe in description, found to | | | have dynamic ECG changes with positive troponins, peaked at 18. She | | | was referred for left heart catheterization and high risk non-ST | | | elevation VT. DESCRIPTION OF PROCEDURE The procedure, details, | | | alternatives, complications were explained for the patient. Informed | | | consent was obtained. The patient was brought to the room and prepped | | | in a sterile fashion. Timeout was performed. Conscious sedation was | | | administered by independent observer. The right wrist was | | | anesthetized with 1% lidocaine. The left radial artery was cannulized | | | with a 6-Omani Terumo sheath. Verapamil 2.5 mg, 200 mcg | | | nitroglycerin, and 5000 international units of heparin were then | | | given through the sheath. Over a 260 exchange wire a 5-Omani FL4 | | | diagnostic catheter was advanced to the ascending aorta, selectively | | | engaging the left main. Contrast was injected. Selective angiogram | | | for the left main, LAD, and left circumflex artery performed in | | | different views. We saw some collaterals going to the right PDA and | | | the initial suspicion was a distal RCA stenosis, and so we exchanged | | | the FL4 diagnostic catheter to a 6-Omani JL4 guide that could not | | | selectively engage the RCA due to the high takeoff of the RCA, and so | | | it was exchanged for a 6-Omani IM guide that selectively engaged the | | | RCA. Contrast was injected. Selective angiogram for the RCA was | | | performed in different views confirming our suspicion of 100% | | | occlusion of the distal RCA. The patient was given IV heparin to have | | | an ACT more than 200. A iFormulary Flex short wire was advanced | | | without difficulty to the right posterolateral artery and the distal | | | RCA was inflated with an Emerge 2 x 12 mm balloon at 8 atmospheres | | | establishing TIMI3 flow. The balloon was removed and angiogram was | | | done showing that occlusion was at the distal RCA, at the bifurcation | | | between the right PDA and right AV groove artery. There was under | | | 100% occlusion in the right AV groove artery before the | | | posterolateral arteries. Another BMW Baxter short wire was | | | advanced to the right PDA. A 2 x 12 Emerge balloon was advanced to | | | the right AV groove artery over the Prowater flex wire and inflated | | | in the right AV groove artery establishing TIMI3 into 2 small right | | | posterolateral arteries. The balloon was removed and the decision was | | | to do 2 non-overlapping stents. The initial stent, Promus Premier | | | 2.25 x 12 mm advanced over the Prowater flex wire to the right AV | | | groove artery, inflated at 12 atmospheres. Then the stent balloon was | | | removed. Another Promus Premier stent 2.5 x 16 mm was advanced over | | | there Prowater flex wire to the distal RCA. The BMW wire was removed | | | and the stent was inflated at 12 atmospheres. Stent balloon was | | | removed. Both wires were removed. Final angiogram was done showing | | | good angiographic results, TIMI3 flow in all arteries. There was | | | evidence of jailing in the ostium of the right PDA but there was | | | TIMI3 flow. No chest pain. No ECG changes. Over a guidewire the | | | guide was exchanged for a 5-Omani FR4 diagnostic catheter that was | | | advanced to the left ventricle. Pressure was recorded without left | | | ventriculogram. The catheter was removed. The sheath was removed. TR | | | band was applied with good hemostasis. The patient was transferred to | | | the recovery area in stable condition. FINDINGS HEMODYNAMICS 1. | | | Systemic pressure 120/62. 2. Left ventricular end-diastolic pressure | | | 16. 3. No significant gradient across the aortic valve. | | | ANGIOGRAM 1. Left main normal size, no significant stenosis. 2. LAD | | | normal sized artery wrapping around the apex, proximally 10%, mid 40% | | | diffuse, distal no significant stenosis. 3. The first diagonal is | | | small, no significant stenosis. 4. Second diagonal is normal size, no | | | significant stenosis. 5. Third diagonal is absent. 6. The ramus | | | artery is a normal sized artery with proximal 10% stenosis. 7. The | | | right AV groove artery continues as a first obtuse marginal with no | | | significant stenosis, then the mid-left circumflex artery with the | | | second and third obtuse marginals are absent. 8. RCA is a normal | | | sized artery, proximally has a 30% stenosis. Distal is 100% occluded | | | before the bifurcation to the PDA and the right AV groove artery. 9. | | | There right PDA is a normal sized artery, with no significant | | | stenosis. 10. Right AV groove artery has another 100% stenosis. 11. | | | First and second right posterolateral arteries are small in size, no | | | significant stenosis. 12. Right dominant circulation. | | | COMPLICATIONS None. CONTRAST USED 160 mL. ESTIMATED BLOOD | | | LOSS Minimal. CONCLUSIONS 1. High risk non-ST elevation | | | myocardial infarction presentation. 2. 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 3. Successful angioplasty for the right coronary artery with | | | 2 non-overlapping drug-eluting stents in the right atrioventricular | | | groove artery (Promus Premier 2.25 x 12 mm in the distal right | | | coronary artery, Promus Premier 2.5 x 16 mm). RECOMMENDATIONS 1. | | | Aspirin 325 mg for 3 months, then 81 mg indefinitely. 2. Plavix 75 | | | mg for at least 1 year. 3. Aggressive risk factor modifications. | | | Read by DANII KIMBLE MD 12/16/2013 06:23 P | | + + + + + | Procedure Note | + + | Lorenzo Allan - 11/25/2018 2:17 PM PDT | | | | PROCEDURES | | 1. Left heart catheterization. | | 2. Selective coronary angiogram. | | 3. Left ventricular pressure recording without left ventriculogram. | | 4. Angioplasty for the distal right coronary artery with the right | | atrioventricular groove artery with 2 non-overlapping drug-eluting | | stent (Promus Premier 2.25 x 12 mm in the right atrioventricular groove | | artery and Promus Premier 2.5 x 16 mm in the distal right coronary | | artery). | | | | INDICATIONS | | Ms. Brasher is a 73-year-old lady with a known history of hypertension, who | | presented to the emergency room complaining of worsening chest pain for | | the last 1 month that happens at rest, severe in description, found to | | have dynamic ECG changes with positive troponins, peaked at 18. She was | | referred for left heart catheterization and high risk non-ST elevation | | [place]. | | | | DESCRIPTION OF PROCEDURE | | The procedure, details, alternatives, complications were explained for the | | patient. Informed consent was obtained. The patient was brought to the | | room and prepped in a sterile fashion. Timeout was performed. Conscious | | sedation was administered by independent observer. The right wrist was | | anesthetized with 1% lidocaine. The left radial artery was cannulized with | | a 6-Omani Terumo sheath. Verapamil 2.5 mg, 200 mcg nitroglycerin, and | | 5000 international units of heparin were then given through the sheath. | | | | Over a 260 exchange wire a 5-Omani FL4 diagnostic catheter was advanced | | to the ascending aorta, selectively engaging the left main. Contrast was | | injected. Selective angiogram for the left main, LAD, and left circumflex | | artery performed in different views. We saw some collaterals going to the | | right PDA and the initial suspicion was a distal RCA stenosis, and so we | | exchanged the FL4 diagnostic catheter to a 6-Omani JL4 guide that could | | not selectively engage the RCA due to the high takeoff of the RCA, and so | | it was exchanged for a 6-Omani IM guide that selectively engaged the RCA. | | Contrast was injected. Selective angiogram for the RCA was performed in | | different views confirming our suspicion of 100% occlusion of the distal | | RCA. The patient was given IV heparin to have an ACT more than 200. A | | Prowater Flex short wire was advanced without difficulty to the right | | posterolateral artery and the distal RCA was inflated with an Emerge 2 x | | 12 mm balloon at 8 atmospheres establishing TIMI3 flow. The balloon was | | removed and angiogram was done showing that occlusion was at the distal | | RCA, at the bifurcation between the right PDA and right AV groove artery. | | There was under 100% occlusion in the right AV groove artery before the | | posterolateral arteries. | | | | Another BMW Baxter short wire was advanced to the right PDA. A 2 x 12 | | Emerge balloon was advanced to the right AV groove artery over the | | Prowater flex wire and inflated in the right AV groove artery establishing | | TIMI3 into 2 small right posterolateral arteries. The balloon was removed | | and the decision was to do 2 non-overlapping stents. The initial stent, | | Promus Premier 2.25 x 12 mm advanced over the Prowater flex wire to the | | right AV groove artery, inflated at 12 atmospheres. Then the stent balloon | | was removed. Another Promus Premier stent 2.5 x 16 mm was advanced over | | there Prowater flex wire to the distal RCA. The BMW wire was removed and | | the stent was inflated at 12 atmospheres. Stent balloon was removed. Both | | wires were removed. Final angiogram was done showing good angiographic | | results, TIMI3 flow in all arteries. There was evidence of jailing in the | | ostium of the right PDA but there was TIMI3 flow. No chest pain. No ECG | | changes. | | | | Over a guidewire the guide was exchanged for a 5-Omani FR4 diagnostic | | catheter that was advanced to the left ventricle. Pressure was recorded | | without left ventriculogram. The catheter was removed. The sheath was | | removed. TR band was applied with good hemostasis. The patient was | | transferred to the recovery area in stable condition. | | | | FINDINGS | | HEMODYNAMICS | | 1. Systemic pressure 120/62. | | 2. Left ventricular end-diastolic pressure 16. | | 3. No significant gradient across the aortic valve. | | | | ANGIOGRAM | | 1. Left main normal size, no significant stenosis. | | 2. LAD normal sized artery wrapping around the apex, proximally 10%, mid | | 40% diffuse, distal no significant stenosis. | | 3. The first diagonal is small, no significant stenosis. | | 4. Second diagonal is normal size, no significant stenosis. | | 5. Third diagonal is absent. | | 6. The ramus artery is a normal sized artery with proximal 10% stenosis. | | 7. The right AV groove artery continues as a first obtuse marginal with no | | significant stenosis, then the mid-left circumflex artery with the | | second and third obtuse marginals are absent. | | 8. RCA is a normal sized artery, proximally has a 30% stenosis. Distal is | | 100% occluded before the bifurcation to the PDA and the right AV groove | | artery. | | 9. There right PDA is a normal sized artery, with no significant | | stenosis. | | 10. Right AV groove artery has another 100% stenosis. | | 11. First and second right posterolateral arteries are small in size, no | | significant stenosis. | | 12. Right dominant circulation. | | | | COMPLICATIONS | | None. | | | | CONTRAST USED | | 160 mL. | | | | ESTIMATED BLOOD LOSS | | Minimal. | | | | CONCLUSIONS | | 1. High risk non-ST elevation myocardial infarction presentation. | | 2. 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 | | 3. Successful angioplasty for the right coronary artery with 2 | | non-overlapping drug-eluting stents in the right atrioventricular | | groove artery (Promus Premier 2.25 x 12 mm in the distal right coronary | | artery, Promus Premier 2.5 x 16 mm). | | | | RECOMMENDATIONS | | 1. Aspirin 325 mg for 3 months, then 81 mg indefinitely. | | 2. Plavix 75 mg for at least 1 year. | | 3. Aggressive risk factor modifications. | | | | Read by DANII KIMBLE MD 12/16/2013 06:23 P | | | | | + + CV CARDIAC PROCEDURE (12/16/2013 6:32 PM PDT) + + | Specimen | + + | | + + + + + | Narrative | Performed At | + + + | | | | | | | PROCEDURES 1. Left heart catheterization. 2. Selective coronary | | | angiogram. 3. Left ventricular pressure recording without left | | | ventriculogram. 4. Angioplasty for the distal right coronary artery | | | with the right atrioventricular groove artery with 2 non-overlapping | | | drug-eluting stent (Promus Premier 2.25 x 12 mm in the right | | | atrioventricular groove artery and Promus Premier 2.5 x 16 mm in the | | | distal right coronary artery). INDICATIONS Ms. Brasher is a | | | 73-year-old lady with a known history of hypertension, who presented | | | to the emergency room complaining of worsening chest pain for the | | | last 1 month that happens at rest, severe in description, found to | | | have dynamic ECG changes with positive troponins, peaked at 18. She | | | was referred for left heart catheterization and high risk non-ST | | | elevation VT. DESCRIPTION OF PROCEDURE The procedure, details, | | | alternatives, complications were explained for the patient. Informed | | | consent was obtained. The patient was brought to the room and prepped | | | in a sterile fashion. Timeout was performed. Conscious sedation was | | | administered by independent observer. The right wrist was | | | anesthetized with 1% lidocaine. The left radial artery was cannulized | | | with a 6-Omani Terumo sheath. Verapamil 2.5 mg, 200 mcg | | | nitroglycerin, and 5000 international units of heparin were then | | | given through the sheath. Over a 260 exchange wire a 5-Omani FL4 | | | diagnostic catheter was advanced to the ascending aorta, selectively | | | engaging the left main. Contrast was injected. Selective angiogram | | | for the left main, LAD, and left circumflex artery performed in | | | different views. We saw some collaterals going to the right PDA and | | | the initial suspicion was a distal RCA stenosis, and so we exchanged | | | the FL4 diagnostic catheter to a 6-Omani JL4 guide that could not | | | selectively engage the RCA due to the high takeoff of the RCA, and so | | | it was exchanged for a 6-Omani IM guide that selectively engaged the | | | RCA. Contrast was injected. Selective angiogram for the RCA was | | | performed in different views confirming our suspicion of 100% | | | occlusion of the distal RCA. The patient was given IV heparin to have | | | an ACT more than 200. A Prowater Flex short wire was advanced | | | without difficulty to the right posterolateral artery and the distal | | | RCA was inflated with an Emerge 2 x 12 mm balloon at 8 atmospheres | | | establishing TIMI3 flow. The balloon was removed and angiogram was | | | done showing that occlusion was at the distal RCA, at the bifurcation | | | between the right PDA and right AV groove artery. There was under | | | 100% occlusion in the right AV groove artery before the | | | posterolateral arteries. Another BMW Baxter short wire was | | | advanced to the right PDA. A 2 x 12 Emerge balloon was advanced to | | | the right AV groove artery over the Prowater flex wire and inflated | | | in the right AV groove artery establishing TIMI3 into 2 small right | | | posterolateral arteries. The balloon was removed and the decision was | | | to do 2 non-overlapping stents. The initial stent, Promus Premier | | | 2.25 x 12 mm advanced over the Prowater flex wire to the right AV | | | groove artery, inflated at 12 atmospheres. Then the stent balloon was | | | removed. Another Promus Premier stent 2.5 x 16 mm was advanced over | | | there Prowater flex wire to the distal RCA. The BMW wire was removed | | | and the stent was inflated at 12 atmospheres. Stent balloon was | | | removed. Both wires were removed. Final angiogram was done showing | | | good angiographic results, TIMI3 flow in all arteries. There was | | | evidence of jailing in the ostium of the right PDA but there was | | | TIMI3 flow. No chest pain. No ECG changes. Over a guidewire the | | | guide was exchanged for a 5-Omani FR4 diagnostic catheter that was | | | advanced to the left ventricle. Pressure was recorded without left | | | ventriculogram. The catheter was removed. The sheath was removed. TR | | | band was applied with good hemostasis. The patient was transferred to | | | the recovery area in stable condition. FINDINGS HEMODYNAMICS 1. | | | Systemic pressure 120/62. 2. Left ventricular end-diastolic pressure | | | 16. 3. No significant gradient across the aortic valve. | | | ANGIOGRAM 1. Left main normal size, no significant stenosis. 2. LAD | | | normal sized artery wrapping around the apex, proximally 10%, mid 40% | | | diffuse, distal no significant stenosis. 3. The first diagonal is | | | small, no significant stenosis. 4. Second diagonal is normal size, no | | | significant stenosis. 5. Third diagonal is absent. 6. The ramus | | | artery is a normal sized artery with proximal 10% stenosis. 7. The | | | right AV groove artery continues as a first obtuse marginal with no | | | significant stenosis, then the mid-left circumflex artery with the | | | second and third obtuse marginals are absent. 8. RCA is a normal | | | sized artery, proximally has a 30% stenosis. Distal is 100% occluded | | | before the bifurcation to the PDA and the right AV groove artery. 9. | | | There right PDA is a normal sized artery, with no significant | | | stenosis. 10. Right AV groove artery has another 100% stenosis. 11. | | | First and second right posterolateral arteries are small in size, no | | | significant stenosis. 12. Right dominant circulation. | | | COMPLICATIONS None. CONTRAST USED 160 mL. ESTIMATED BLOOD | | | LOSS Minimal. CONCLUSIONS 1. High risk non-ST elevation | | | myocardial infarction presentation. 2. 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 3. Successful angioplasty for the right coronary artery with | | | 2 non-overlapping drug-eluting stents in the right atrioventricular | | | groove artery (Promus Premier 2.25 x 12 mm in the distal right | | | coronary artery, Promus Premier 2.5 x 16 mm). RECOMMENDATIONS 1. | | | Aspirin 325 mg for 3 months, then 81 mg indefinitely. 2. Plavix 75 | | | mg for at least 1 year. 3. Aggressive risk factor modifications. | | | Read by DANII KIMBLE MD 12/16/2013 06:23 P | | + + + + + | Procedure Note | + + | Lorenzo Allan - 11/25/2018 2:17 PM PDT | | | | PROCEDURES | | 1. Left heart catheterization. | | 2. Selective coronary angiogram. | | 3. Left ventricular pressure recording without left ventriculogram. | | 4. Angioplasty for the distal right coronary artery with the right | | atrioventricular groove artery with 2 non-overlapping drug-eluting | | stent (Promus Premier 2.25 x 12 mm in the right atrioventricular groove | | artery and Promus Premier 2.5 x 16 mm in the distal right coronary | | artery). | | | | INDICATIONS | | Ms. Brasher is a 73-year-old lady with a known history of hypertension, who | | presented to the emergency room complaining of worsening chest pain for | | the last 1 month that happens at rest, severe in description, found to | | have dynamic ECG changes with positive troponins, peaked at 18. She was | | referred for left heart catheterization and high risk non-ST elevation | | [place]. | | | | DESCRIPTION OF PROCEDURE | | The procedure, details, alternatives, complications were explained for the | | patient. Informed consent was obtained. The patient was brought to the | | room and prepped in a sterile fashion. Timeout was performed. Conscious | | sedation was administered by independent observer. The right wrist was | | anesthetized with 1% lidocaine. The left radial artery was cannulized with | | a 6-Omani Terumo sheath. Verapamil 2.5 mg, 200 mcg nitroglycerin, and | | 5000 international units of heparin were then given through the sheath. | | | | Over a 260 exchange wire a 5-Omani FL4 diagnostic catheter was advanced | | to the ascending aorta, selectively engaging the left main. Contrast was | | injected. Selective angiogram for the left main, LAD, and left circumflex | | artery performed in different views. We saw some collaterals going to the | | right PDA and the initial suspicion was a distal RCA stenosis, and so we | | exchanged the FL4 diagnostic catheter to a 6-Omani JL4 guide that could | | not selectively engage the RCA due to the high takeoff of the RCA, and so | | it was exchanged for a 6-Omani IM guide that selectively engaged the RCA. | | Contrast was injected. Selective angiogram for the RCA was performed in | | different views confirming our suspicion of 100% occlusion of the distal | | RCA. The patient was given IV heparin to have an ACT more than 200. A | | Prowater Flex short wire was advanced without difficulty to the right | | posterolateral artery and the distal RCA was inflated with an Emerge 2 x | | 12 mm balloon at 8 atmospheres establishing TIMI3 flow. The balloon was | | removed and angiogram was done showing that occlusion was at the distal | | RCA, at the bifurcation between the right PDA and right AV groove artery. | | There was under 100% occlusion in the right AV groove artery before the | | posterolateral arteries. | | | | Another BMW Baxter short wire was advanced to the right PDA. A 2 x 12 | | Emerge balloon was advanced to the right AV groove artery over the | | Prowater flex wire and inflated in the right AV groove artery establishing | | TIMI3 into 2 small right posterolateral arteries. The balloon was removed | | and the decision was to do 2 non-overlapping stents. The initial stent, | | Promus Premier 2.25 x 12 mm advanced over the Prowater flex wire to the | | right AV groove artery, inflated at 12 atmospheres. Then the stent balloon | | was removed. Another Promus Premier stent 2.5 x 16 mm was advanced over | | there Prowater flex wire to the distal RCA. The BMW wire was removed and | | the stent was inflated at 12 atmospheres. Stent balloon was removed. Both | | wires were removed. Final angiogram was done showing good angiographic | | results, TIMI3 flow in all arteries. There was evidence of jailing in the | | ostium of the right PDA but there was TIMI3 flow. No chest pain. No ECG | | changes. | | | | Over a guidewire the guide was exchanged for a 5-Omani FR4 diagnostic | | catheter that was advanced to the left ventricle. Pressure was recorded | | without left ventriculogram. The catheter was removed. The sheath was | | removed. TR band was applied with good hemostasis. The patient was | | transferred to the recovery area in stable condition. | | | | FINDINGS | | HEMODYNAMICS | | 1. Systemic pressure 120/62. | | 2. Left ventricular end-diastolic pressure 16. | | 3. No significant gradient across the aortic valve. | | | | ANGIOGRAM | | 1. Left main normal size, no significant stenosis. | | 2. LAD normal sized artery wrapping around the apex, proximally 10%, mid | | 40% diffuse, distal no significant stenosis. | | 3. The first diagonal is small, no significant stenosis. | | 4. Second diagonal is normal size, no significant stenosis. | | 5. Third diagonal is absent. | | 6. The ramus artery is a normal sized artery with proximal 10% stenosis. | | 7. The right AV groove artery continues as a first obtuse marginal with no | | significant stenosis, then the mid-left circumflex artery with the | | second and third obtuse marginals are absent. | | 8. RCA is a normal sized artery, proximally has a 30% stenosis. Distal is | | 100% occluded before the bifurcation to the PDA and the right AV groove | | artery. | | 9. There right PDA is a normal sized artery, with no significant | | stenosis. | | 10. Right AV groove artery has another 100% stenosis. | | 11. First and second right posterolateral arteries are small in size, no | | significant stenosis. | | 12. Right dominant circulation. | | | | COMPLICATIONS | | None. | | | | CONTRAST USED | | 160 mL. | | | | ESTIMATED BLOOD LOSS | | Minimal. | | | | CONCLUSIONS | | 1. High risk non-ST elevation myocardial infarction presentation. | | 2. 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 | | 3. Successful angioplasty for the right coronary artery with 2 | | non-overlapping drug-eluting stents in the right atrioventricular | | groove artery (Promus Premier 2.25 x 12 mm in the distal right coronary | | artery, Promus Premier 2.5 x 16 mm). | | | | RECOMMENDATIONS | | 1. Aspirin 325 mg for 3 months, then 81 mg indefinitely. | | 2. Plavix 75 mg for at least 1 year. | | 3. Aggressive risk factor modifications. | | | | Read by DANII KIMBLE MD 12/16/2013 06:23 P | | | | | + + Activated clotting time (12/16/2013 6:08 PM PDT) + + + + + + | Component | Value | Ref Range | Performed | Pathologist | | | | | At | Signature | + + + + + + | Activated | 222 (H)Comment: Testing | 74 - 137 | EXTERNAL | | | Clotting | [place] [facility] | seconds | LAB | | | time, POC | [address];[place], [place] | | | | | | [address] | | | | + + + + + + + + | Specimen | + + | | + + + +---------+ + + | Performing | Address | City/State/Zipcode | Phone Number | | Organization | | | | + +---------+ + + | EXTERNAL LAB | | | | + +---------+ + + Activated clotting time (12/16/2013 5:35 PM PDT) + + + + + + | Component | Value | Ref Range | Performed | Pathologist | | | | | At | Signature | + + + + + + | Activated | 191 (H)Comment: Testing | 74 - 137 | EXTERNAL | | | Clotting | performed at [facility] | seconds | LAB | | | time, POC | [address];[place] | | | | | | [address] | | | | + + + + + + + + | Specimen | + + | | + + + +---------+ + + | Performing | Address | City/State/Zipcode | Phone Number | | Organization | | | | + +---------+ + + | EXTERNAL LAB | | | | + +---------+ + + PTT (12/16/2013 4:15 PM PDT) + + + + + + | Component | Value | Ref Range | Performed | Pathologist | | | | | At | Signature | + + + + + + | aPTT, | 36 (H)Comment: Testing | 23 - 32 seconds | EXTERNAL | | | Patient | performed at [facility] | | LAB | | | | [address];[place], [place] | | | | | | [address] | | | | + + + + + + + + | Specimen | + + | Blood specimen | | (specimen) | + + + +---------+ + + | Performing | Address | City/State/Zipcode | Phone Number | | Organization | | | | + +---------+ + + | EXTERNAL LAB | | | | + +---------+ + + CK-MB (12/16/2013 11:46 AM PDT) + + + + + -+ | Component | Value | Ref Range | Performed | Pathologist | | | | | At | Signature | + + + + + -+ | CK-MB | 140.1 (H)Comment: | 0.5 - 3.6 ng/mL | EXTERNAL | | | | Testing performed at | | LAB | | | | [facility] | | [address] | [address];[place] [address] | | | | + + + + + -+ | CK-MB Index | 16.4Comment: CK INDEX | | EXTERNAL | | [...] | + +---------+ + + Troponin I (12/16/2013 11:46 AM PDT) + + + + + + | Component | Value | Ref Range | Performed | Pathologist | | | | | At | Signature | + + + + + + | Troponin I, | 18.1 ()Comment: 0.00 | 0.00 - 0.10 | EXTERNAL | | | Qual | to 0.10 CONSISTENT | ng/mL | LAB | | | | WITH NORMAL | | | | | | POPULATION0.11 to 0.60 | | | | | | CONSISTENT WITH | | | | | | INCREASED RISK FOR | | | | | | ADVERSE OUTCOMES> 0.60 | | | | | | CONSISTENT | | | | | | WITH WHO CRITERIA FOR | | | | | | ACUTE VT CALLED NURSING | | | | | | UNITREAD BACK RESULTS | | | | | | VERIFIEDCARLOTTA D. IN | | | | | | CDU AT 1242 BY | | | | | | CRKTesting performed at | | | | | | [facility] | | | | | | [facility];[place] [address] | | | | + + + + + + + + | Specimen | + + | Blood specimen | | (specimen) | + + + +---------+ + + | Performing | Address | City/State/Zipcode | Phone Number | | Organization | | | | + +---------+ + + | EXTERNAL LAB | | | | + +---------+ + + CK Total (12/16/2013 11:46 AM PDT) + + + + + + | Component | Value | Ref Range | Performed | Pathologist | | | | | At | Signature | + + + + + + | CK, Total | 853 (H)Comment: Testing | 30 - 240 U/L | EXTERNAL | | | | performed at [facility] | | LAB | | | | [address];[place], [place] | | | | | | [address] | | | | + + + + + + + + | Specimen | + + | Blood specimen | | (specimen) | + + + +---------+ + + | Performing | Address | City/State/Zipcode | Phone Number | | Organization | | | | + +---------+ + + | EXTERNAL LAB | | | | + +---------+ + + ECHO Complete (12/16/2013 10:15 AM PDT) + + | Specimen | + + | | + + + + + | Impressions | Performed At | + + + | 1. Overall left ventricular systolic function is normal with, an EF | | | between 60 - 65 %. 2. The left atrium is normal in size. 3. There is | | | mild aortic valve sclerosis without stenosis. 4. Mild mitral | | | regurgitation is present. 5. There is mild to moderate pulmonary | | | hypertension. 6. The right ventricular systolic pressure (pulmonary | | | artery systolic pressure), as measured by Doppler, is 45.59mmHg. 7. | | | There is no pericardial effusion. | | + + + + + + | Narrative | Performed At | + + + | Patient Name: NATALY BRASHER Date of : 1940 | | | Performing Physician: Remington George MD | | | | | | INDICATIONS Abnormal EKG Chest pain CONCLUSIONS | | | 1. Overall left ventricular systolic function is normal | | | with, an EF between 60 - 65 %. 2. The left atrium is normal in size. | | | 3. There is mild aortic valve sclerosis without stenosis. 4. Mild | | | mitral regurgitation is present. 5. There is mild to moderate | | | pulmonary hypertension. 6. The right ventricular systolic pressure | | | (pulmonary artery systolic pressure), as measured by Doppler, is | | | 45.59mmHg. 7. There is no pericardial effusion. FINDINGS | | | -------- ECG rhythm: Sinus rhythm. Study: A 2-dimensional | | | transthoracic echocardiogram with m-mode, spectral and color flow | | | Doppler was perfomed. Study: This was a technically adequate study. | | | Left Ventricle: Overall left ventricular systolic function is normal | | | with, an EF between 60 - 65 %. Left Ventricle: The left ventricle | | | cavity size is normal. Left Ventricle: Eccentric hyperthrophy is | | | present. Right Ventricle: The right ventricle is normal in size and | | | function. Left Atrium: The left atrium is normal in size. Right | | | Atrium: The right atrium is normal in size. Aortic Valve: There is | | | mild aortic valve sclerosis without stenosis. Aortic Valve: There is | | | no evidence of aortic regurgitation. Mitral Valve: Mild mitral | | | regurgitation is present. Mitral Valve: Mild thickening of the | | | anterior mitral valve leaflet. Mitral Valve: There is mild thickening | | | of the posterior mitral valve leaflet. Tricuspid Valve: The | | | tricuspid valve appears structurally normal. Tricuspid Valve: | | | Moderate tricuspid regurgitation present. Tricuspid Valve: There is | | | mild to moderate pulmonary hypertension. Tricuspid Valve: The right | | | ventricular systolic pressure (pulmonary artery systolic pressure), as | | | measured by Doppler, is 45.59mmHg. Pulmonic Valve: Pulmonic valve | | | appears structurally normal. Pulmonic Valve: Trace pulmonic | | | regurgitation. Pericardium: There is no pericardial effusion. | | | IVC/Hepatic Veins: The inferior vena cava is normal in size and | | | collapses > 50 % with sniff, indicating normal central venous | | | pressures. Mass: No mass visualized Thrombus: No clot visualized | | | Thrombus: No vegetation visualized. MEASUREMENTS | | | IVC: 2.20 cm LA Major: 4.83 cm EDV(Teich): 88.05 ml IVSd: | | | 1.13 cm LVIDd: 4.40 cm LVPWd: 0.89 cm LVOT Diam: 2.23 | | | cm %FS: 33.16 % EF(Teich): 61.98 % ESV(Teich): 33.47 ml | | | IVSs: 1.57 cm LVIDs: 2.94 cm LVPWs: 1.23 cm SV(Teich): | | | 54.58 ml RA Major: 4.86 cm RVIDd: 3.12 cm LVEF MOD A2C: | | | 57.72 % SV MOD A2C: 51.44 ml LVEF MOD A4C: 64.67 % SV MOD | | | A4C: 65.60 ml EF Biplane: 62.94 % LVEDV MOD BP: 98.02 ml | | | LVESV MOD BP: 36.32 ml LVEDV MOD A2C: 89.12 ml LVLd A2C: | | | 6.96 cm LVEDV MOD A4C: 101.44 ml LVLd A4C: 7.48 cm LVESV MOD | | | A2C: 37.67 ml LVLs A2C: 5.15 cm LVESV MOD A4C: 35.83 ml | | | LVLs A4C: 5.16 cm LAESV(A-L): 57.92 ml LAESV Index (A-L): | | | 34.27 ml/m2 LAAs A2C: 17.72 cm2 LAESV A-L A2C: 53.30 ml LALs | | | A2C: 5.00 cm LAAs A4C: 19.25 cm2 LAESV A-L A4C: 61.06 ml | | | LALs A4C: 5.15 cm Ao Diam: 3.07 cm AV Cusp: 1.93 cm LA | | | Diam: 3.42 cm LA/Ao: 1.11 %FS: 35.35 % EDV(Teich): | | | 95.55 ml EF(Teich): 64.83 % ESV(Teich): 33.59 ml IVSd: | | | 1.15 cm IVSs: 1.75 cm LVIDd: 4.56 cm LVIDs: 2.95 cm | | | LVPWd: 1.10 cm LVPWs: 1.47 cm SV(Teich): 61.95 ml D-E | | | Excursion: 1.84 cm E-F Mccook: 0.11 m/s IVC diameter: 1.81 | | | cm IVC collapse: 0.67 cm IVC % collapse: 61.14 % HR: 66.51 | | | BPM AV maxP.58 mmHg AV meanP.33 mmHg AV Vmax: | | | 1.37 m/s AV Vmean: 0.81 m/s AV VTI: 26.49 cm VARUN Vmax: | | | 2.36 cm2 VARUN (VTI): 2.28 cm2 LVCI Dopp: 2.45 l/minm2 LVCO | | | Dopp: 4.15 l/min HR: 68.48 BPM LVOT maxP.77 mmHg LVOT | | | meanP.31 mmHg LVSI Dopp: 35.88 ml/m2 LVSV Dopp: 60.64 | | | ml LVOT Vmax: 0.83 m/s LVOT Vmean: 0.51 m/s LVOT VTI: | | | 15.53 cm MV E Dmitriy: 0.09 m/s MV A Dmitriy: 1.02 m/s MV DecT: | | | 152.20 ms MV E Dmitriy: 0.97 m/s MV E/A Ratio: 0.95 MV PHT: | | | 39.16 ms MVA By PHT: 5.61 cm2 MV A Dur: 107.20 ms Septal e': | | | 0.07 m/s Septal E/e': 1.32 P Vein A: 0.36 m/s P Vein A | | | Dur: 99.81 ms P Vein D: 0.53 m/s P Vein S/D Ratio: 1.58 P | | | Vein S: 0.85 m/s PAEDP: 10.92 mmHg PRend P.92 mmHg | | | PRend Vmax: 0.48 m/s HR: 70.87 BPM PV maxP.58 mmHg PV | | | meanP.81 mmHg PV Vmax: 0.63 m/s PV Vmean: 0.42 m/s PV | | | VTI: 14.27 cm RAP: 10 mmHg RVSP: 45.59 mmHg TR maxPG: | | | 35.59 mmHg TR Vmax: 2.98 m/s TV A Dmitriy: 0.42 m/s TV Dec Mccook: | | | 3.57 m/s2 TV Dec Time: 142.13 ms TV E Dmitriy: 0.50 m/s TV | | | E/A Ratio: 1.19 University Counselor: Authenticated by: Remington George | | | Report Date/Time: 12-16-2013 12:26:03 | | + + + + + | Procedure Note | + + | Jerrell, Rad Conversion - 11/20/2018 12:52 PM PDT Patient Name: Divina BRASHER of | | : 1940 Performing Physician: Remington George | | MD INDICATIONS A | | bnormal EKG Chest pain CONCLUSIONS 1. Overall left ventricular systolic | | function is normal with, an EF between 60 - 65 %.2. The left atrium is normal in size.3. | | There is mild aortic valve sclerosis without stenosis.4. Mild mitral regurgitation is | | present.5. There is mild to moderate pulmonary hypertension.6. The right ventricular | | systolic pressure (pulmonary artery systolic pressure), as measured by Doppler, is | | 45.59mmHg.7. There is no pericardial effusion. FINDINGS--------ECG rhythm: Sinus | | rhythm.Study: A 2-dimensional transthoracic echocardiogram with m-mode, spectral and | | color flow Doppler was perfomed.Study: This was a technically adequate study.Left | | Ventricle: Overall left ventricular systolic function is normal with, an EF between 60 - | | 65 %.Left Ventricle: The left ventricle cavity size is normal.Left Ventricle: Eccentric | | hyperthrophy is present.Right Ventricle: The right ventricle is normal in size and | | function.Left Atrium: The left atrium is normal in size.Right Atrium: The right atrium | | is normal in size.Aortic Valve: There is mild aortic valve sclerosis without | | stenosis.Aortic Valve: There is no evidence of aortic regurgitation.Mitral Valve: Mild | | mitral regurgitation is present.Mitral Valve: Mild thickening of the anterior mitral | | valve leaflet.Mitral Valve: There is mild thickening of the posterior mitral valve | | leaflet.Tricuspid Valve: The tricuspid valve appears structurally normal.Tricuspid | | Valve: Moderate tricuspid regurgitation present.Tricuspid Valve: There is mild to | | moderate pulmonary hypertension.Tricuspid Valve: The right ventricular systolic pressure | | (pulmonary artery systolic pressure), as measured by Doppler, is 45.59mmHg.Pulmonic | | Valve: Pulmonic valve appears structurally normal.Pulmonic Valve: Trace pulmonic | | regurgitation.Pericardium: There is no pericardial effusion.IVC/Hepatic Veins: The | | inferior vena cava is normal in size and collapses > 50 % with sniff, indicating normal | | central venous pressures.Mass: No mass visualizedThrombus: No clot visualizedThrombus: | | No vegetation visualized. MEASUREMENTS IVC: 2.20 cmLA Major: 4.83 | | cmEDV(Teich): 88.05 mlIVSd: 1.13 cmLVIDd: 4.40 cmLVPWd: 0.89 cmLVOT Diam: 2.23 | | cm%FS: 33.16 %EF(Teich): 61.98 %ESV(Teich): 33.47 mlIVSs: 1.57 cmLVIDs: 2.94 | | cmLVPWs: 1.23 cmSV(Teich): 54.58 mlRA Major: 4.86 cmRVIDd: 3.12 cmLVEF MOD A2C: | | 57.72 %SV MOD A2C: 51.44 mlLVEF MOD A4C: 64.67 %SV MOD A4C: 65.60 mlEF Biplane: | | 62.94 %LVEDV MOD BP: 98.02 mlLVESV MOD BP: 36.32 mlLVEDV MOD A2C: 89.12 mlLVLd | | A2C: 6.96 cmLVEDV MOD A4C: 101.44 mlLVLd A4C: 7.48 cmLVESV MOD A2C: 37.67 mlLVLs | | A2C: 5.15 cmLVESV MOD A4C: 35.83 mlLVLs A4C: 5.16 cmLAESV(A-L): 57.92 mlLAESV | | Index (A-L): 34.27 ml/m2LAAs A2C: 17.72 [id number] A-L A2C: 53.30 mlLALs A2C: 5.00 | | cmLAAs A4C: 19.25 [id number] A-L A4C: 61.06 mlLALs A4C: 5.15 cmAo Diam: 3.07 cmAV | | Cusp: 1.93 cmLA Diam: 3.42 cmLA/Ao: 1.11%FS: 35.35 %EDV(Teich): 95.55 | | mlEF(Teich): 64.83 %ESV(Teich): 33.59 mlIVSd: 1.15 cmIVSs: 1.75 cmLVIDd: 4.56 | | cmLVIDs: 2.95 cmLVPWd: 1.10 cmLVPWs: 1.47 cmSV(Teich): 61.95 mlD-E Excursion: | | 1.84 cmE-F [place]: 0.11 m/sIVC diameter: 1.81 cmIVC collapse: 0.67 cmIVC % | | collapse: 61.14 %HR: 66.51 BPMAV maxP.58 mmHgAV meanP.33 mmHgAV Vmax: | | 1.37 m/Stanley Vmean: 0.81 m/Stanley VTI: 26.49 cmAVA Vmax: 2.36 cm2AVA (VTI): 2.28 | | [id number] Dopp: 2.45 l/[id number] Dopp: 4.15 l/minHR: 68.48 BPMLVOT maxP.77 | | mmHgLVOT meanP.31 mmHgLVSI Dopp: 35.88 ml/m2LVSV Dopp: 60.64 mlLVOT Vmax: | | 0.83 m/sLVOT Vmean: 0.51 m/sLVOT VTI: 15.53 cmMV E Dmitriy: 0.09 m/sMV A Dmitriy: 1.02 | | m/sMV DecT: 152.20 msMV E Dmitriy: 0.97 m/sMV E/A Ratio: 0.95MV PHT: 39.16 msMVA By | | PHT: 5.61 cm2MV A Dur: 107.20 msSeptal e': 0.07 m/sSeptal E/e': 1.32P Vein A: | | 0.36 m/sP Vein A Dur: 99.81 msP Vein D: 0.53 m/sP Vein S/D Ratio: 1.58P Vein S: | | 0.85 m/sPAEDP: 10.92 mmHgPRend P.92 mmHgPRend Vmax: 0.48 m/sHR: 70.87 BPMPV | | maxP.58 mmHgPV meanP.81 mmHgPV Vmax: 0.63 m/sPV Vmean: 0.42 m/sPV VTI: | | 14.27 cmRAP: 10 mmHgRVSP: 45.59 mmHgTR maxP.59 mmHgTR Vmax: 2.98 m/sTV A | | Dmitriy: 0.42 m/sTV Dec Mccook: 3.57 m/s2TV Dec Time: 142.13 msTV E Dmitriy: 0.50 m/sTV | | E/A Ratio: 1.19 University Counselor: ASAuthenticated by: Remington George MDReport Date/Time: | | 12-16-2013 12:26:03 IMPRESSION: 1. Overall left ventricular systolic function is normal | | with, an EF between 60 - 65 %.2. The left atrium is normal in size.3. There is mild | | aortic valve sclerosis without stenosis.4. Mild mitral regurgitation is present.5. There | | is mild to moderate pulmonary hypertension.6. The right ventricular systolic pressure | | (pulmonary artery systolic pressure), as measured by Doppler, is 45.59mmHg.7. There is | | no pericardial effusion. | |EF(Teich): 61.98 % | |ESV(Teich): 33.47 ml | |IVSs: 1.57 cm | |LVIDs: 2.94 cm | |LVPWs: 1.23 cm | |SV(Teich): 54.58 ml | |RA Major: 4.86 cm | |RVIDd: 3.12 cm | |LVEF MOD A2C: 57.72 % | |SV MOD A2C: 51.44 ml | |LVEF MOD A4C: 64.67 % | |SV MOD A4C: 65.60 ml | |EF Biplane: 62.94 % | |LVEDV MOD BP: 98.02 ml | |LVESV MOD BP: 36.32 ml | |LVEDV MOD A2C: 89.12 ml | |LVLd A2C: 6.96 cm | |LVEDV MOD A4C: 101.44 ml | |LVLd A4C: 7.48 cm | |LVESV MOD A2C: 37.67 ml | |LVLs A2C: 5.15 cm | |LVESV MOD A4C: 35.83 ml | |LVLs A4C: 5.16 cm | |LAESV(A-L): 57.92 ml | |LAESV Index (A-L): 34.27 ml/m2 | |LAAs A2C: 17.72 cm2 | |LAESV A-L A2C: 53.30 ml | |LALs A2C: 5.00 cm | |LAAs A4C: 19.25 cm2 | |LAESV A-L A4C: 61.06 ml | |LALs A4C: 5.15 cm | |Ao Diam: 3.07 cm | |AV Cusp: 1.93 cm | |LA Diam: 3.42 cm | |LA/Ao: 1.11 | |%FS: 35.35 % | |EDV(Teich): 95.55 ml | |EF(Teich): 64.83 % | |ESV(Teich): 33.59 ml | |IVSd: 1.15 cm | |IVSs: 1.75 cm | |LVIDd: 4.56 cm | |LVIDs: 2.95 cm | |LVPWd: 1.10 cm | |LVPWs: 1.47 cm | |SV(Teich): 61.95 ml | |D-E Excursion: 1.84 cm | |E-F Mccook: 0.11 m/s | |IVC diameter: 1.81 cm | |IVC collapse: 0.67 cm | |IVC % collapse: 61.14 % | |HR: 66.51 BPM | |AV maxP.58 mmHg | |AV meanP.33 mmHg | |AV Vmax: 1.37 m/s | |AV Vmean: 0.81 m/s | |AV VTI: 26.49 cm | |VARUN Vmax: 2.36 cm2 | |VARUN (VTI): 2.28 cm2 | |LVCI Dopp: 2.45 l/minm2 | |LVCO Dopp: 4.15 l/min | |HR: 68.48 BPM | |LVOT maxP.77 mmHg | |LVOT meanP.31 mmHg | |LVSI Dopp: 35.88 ml/m2 | |LVSV Dopp: 60.64 ml | |LVOT Vmax: 0.83 m/s | |LVOT Vmean: 0.51 m/s | |LVOT VTI: 15.53 cm | |MV E Dmitriy: 0.09 m/s | |MV A Dmitriy: 1.02 m/s | |MV DecT: 152.20 ms | |MV E Dmitriy: 0.97 m/s | |MV E/A Ratio: 0.95 | |MV PHT: 39.16 ms | |MVA By PHT: 5.61 cm2 | |MV A Dur: 107.20 ms | |Septal e': 0.07 m/s | |Septal E/e': 1.32 | |P Vein A: 0.36 m/s | |P Vein A Dur: 99.81 ms | |P Vein D: 0.53 m/s | |P Vein S/D Ratio: 1.58 | |P Vein S: 0.85 m/s | |PAEDP: 10.92 mmHg | |PRend P.92 mmHg | |PRend Vmax: 0.48 m/s | |HR: 70.87 BPM | |PV maxP.58 mmHg | |PV meanP.81 mmHg | |PV Vmax: 0.63 m/s | |PV Vmean: 0.42 m/s | |PV VTI: 14.27 cm | |RAP: 10 mmHg | |RVSP: 45.59 mmHg | |TR maxP.59 mmHg | |TR Vmax: 2.98 m/s | |TV A Dmitriy: 0.42 m/s | |TV Dec Mccook: 3.57 m/s2 | |TV Dec Time: 142.13 ms | |TV E Dmitriy: 0.50 m/s | |TV E/A Ratio: 1.19 | | | |University Counselor: | |Authenticated by: Remington George MD | |Report Date/Time: 12-16-2013 12:26:03 | | | |IMPRESSION: | |1. Overall left ventricular systolic function is normal with, an EF between 60 - 65 %. | |2. The left atrium is normal in size. | |3. There is mild aortic valve sclerosis without stenosis. | |4. Mild mitral regurgitation is present. | |5. There is mild to moderate pulmonary hypertension. | |6. The right ventricular systolic pressure (pulmonary artery systolic pressure), as measure d by Doppler, is 45.59mmHg. | |7. There is no pericardial effusion. | + + PTT (12/16/2013 8:55 AM PDT) + + + + + + | Component | Value | Ref Range | Performed | Pathologist | | | | | At | Signature | + + + + + + | aPTT, | 57 (H)Comment: Testing | 23 - 32 seconds | EXTERNAL | | | Patient | performed at [facility] | | LAB | | | | [address];[place] | | | | | | [address] | | | | + + + [...] + +---------+ + + ECG 12 lead (12/16/2013 7:29 AM PDT) + + + + + + | Component | Value | Ref Range | Performed | Pathologist | | | | | At | Signature | + + + + + + | DIAGNOSIS: | Normal sinus rhythmRight | | EXTERNAL | | | | bundle branch block, | | LAB | | | | incompletePoor R - | | | | | | progressionST and/or T | | | | | | wave abnormalities | | | | | | suggesting myocardial | | | | | | ischemiaAbnormal ECGWhen | | | | | | compared with ECG of | | | | | | 15-DEC-2013 19:43,No | | | | | | significant change was | | | | | | foundConfirmed by | | | | | | REMINGTON GEORGE ([id number]) on | | | | | | 12/16/2013 12:57:24 PM | | | | + + + + + + + + | Specimen | + + | | + + + + + | Narrative | Performed At | + + + | Historically converted procedure from [facility] Epic environment | EXTERNAL LAB | + + + + +---------+ + + | Performing | Address | City/State/Zipcode | Phone Number | | Organization | | | | + +---------+ + + | EXTERNAL LAB | | | | + +---------+ + + CK-MB (12/16/2013 5:46 AM PDT) + + + + + -+ | Component | Value | Ref Range | Performed | Pathologist | | | | | At | Signature | + + + + + -+ | CK-MB | 169.9 (H)Comment: | 0.5 - 3.6 ng/mL | EXTERNAL | | | | Testing performed at | | LAB | | | | [facility];[address] [place] [address] | | | | | | [facility];[place] [address] | | | | + + + + + -+ | CK-MB Index | 17.9Comment: CK INDEX | | EXTERNAL | | [...] | + +---------+ + + Troponin I (12/16/2013 5:46 AM PDT) + + + + + + | Component | Value | Ref Range | Performed | Pathologist | | | | | At | Signature | + + + + + + | Troponin I, | 18.1 ()Comment: 0.00 | 0.00 - 0.10 | EXTERNAL | | | Qual | to 0.10 CONSISTENT | ng/mL | LAB | | | | WITH NORMAL | | | | | | POPULATION0.11 to 0.60 | | | | | | CONSISTENT WITH | | | | | | INCREASED RISK FOR | | | | | | ADVERSE OUTCOMES> 0.60 | | | | | | CONSISTENT | | | | | | WITH WHO CRITERIA FOR | | | | | | ACUTE VT CKTRP PHONED TO | | | | | | RIKI Matamoros AT 0635 BY | | | | | | LJREAD BACK RESULTS | | | | | | VERIFIEDTesting | | | | | | performed at [facility] | | | | | | [facility];[place], [place] | | | | | | [address] | | | | + + + [...] + +---------+ + + External Lab: CBC (12/16/2013 5:46 AM PDT) + + + + + + | Component | Value | Ref Range | Performed | Pathologist | | | | | At | Signature | + + + + + + | WBC | 11.4 (H)Comment: Testing | 3.8 - 11.0 K/uL | EXTERNAL | | | | performed at [facility], [address] | | LAB | | | | [address], | | | | | | [place] [address] | | | | + + + + + + | Non- | 3.94Comment: Testing | 3.70 - 5.10 | EXTERNAL | | | Red Blood | performed at [facility], [address] | M/uL | LAB | | | Cells | [address], | | | | | Counted | [place] [address] | | | | + + + + + + | Hemoglobin | 11.5Comment: Testing | 11.3 - 15.5 | EXTERNAL | | | | performed at [facility], [address] | g/dL | LAB | | | | [address], | | | | | | [place] [address] | | | | + + + + + + | Hematocrit, | 36.3Comment: Testing | 34.0 - 46.0 % | EXTERNAL | | | POC | performed at [facility], [address] | | LAB | | | | [address], | | | | | | [place] [address] | | | | + + + + + + | MCV | 92.0Comment: Testing | 80.0 - 100.0 fl | EXTERNAL | | | | performed at [facility], [address] | | LAB | | | | [address], | | | | | | [place] [address] | | | | + + + + + + | MCH | 29.2Comment: Testing | 27.0 - 34.0 pg | EXTERNAL | | | | performed at [facility], [address] | | LAB | | | | [address], | | | | | | [place] [address] | | | | + + + + + + | MCHC | 31.7 (L)Comment: Testing | 32.0 - 35.5 | EXTERNAL | | | | performed at [facility], [address] | g/dL | LAB | | | | [address], | | | | | | [place] [address] | | | | + + + + + + | RDW-CV | 52.5Comment: Testing | 37 - 53 fl | EXTERNAL | | | | performed at [facility], [address] | | LAB | | | | [address], | | | | | | [place] [address] | | | | + + + + + + | Platelet | 267Comment: Testing | 150 - 400 K/uL | EXTERNAL | | | Count | performed at [facility], [address] | | LAB | | | Plasma | [address], | | | | | | [place] [address] | | | | + + + + + + | MPV | 9.0Comment: Testing | fl | EXTERNAL | | | | performed at [facility], [address] | | LAB | | | | [address], | | | | | | [place] [address] | | | | + + + + + + | Differentia | AUTOMATEDComment: | | EXTERNAL | | | l Type | Testing performed at | | LAB | | | | [facility], [address] | | | | | | [place] | | | | | | [address] | | | | + + + + + + | % Segmented | 66.4Comment: Testing | % | EXTERNAL | | | | performed at [facility], [address] | | LAB | | | Neutrophils | [address], | | | | | | [place] [address] | | | | + + + + + + | % | 23.2Comment: Testing | % | EXTERNAL | | | Lymphocytes | performed at [facility], [address] | | LAB | | | | [address], | | | | | | [place] [address] | | | | + + + + + + | % Monocytes | 9.4Comment: Testing | % | EXTERNAL | | | | performed at [facility], [address] | | LAB | | | | [address], | | | | | | [place] [address] | | | | + + + + + + | % | 0.1Comment: Testing | % | EXTERNAL | | | Eosinophils | performed at [facility], [address] | | LAB | | | | [address], | | | | | | [place] [address] | | | | + + + + + + | % Basophils | 0.9Comment: Testing | % | EXTERNAL | | | | performed at [facility], [address] | | LAB | | | | [address], | | | | | | [place] [address] | | | | + + + + + + | Absolute | 7.6 (H)Comment: Testing | 1.9 - 7.4 K/uL | EXTERNAL | | | Segmented | performed at [facility], [address] | | LAB | | | Neutrophils | [address], | | | | | | [place] [address] | | | | + + + + + + | Absolute | 2.6Comment: Testing | 1.0 - 3.9 K/uL | EXTERNAL | | | Lymphocytes | performed at [facility], [address] | | LAB | | | | [address], | | | | | | [place] [address] | | | | + + + + + + | Absolute | 1.1 (H)Comment: Testing | 0 - 0.8 K/uL | EXTERNAL | | | Monocytes | performed at [facility], [address] | | LAB | | | | [address], | | | | | | [place] [address] | | | | + + + + + + | Absolute | 0.0Comment: Testing | 0 - 0.5 K/uL | EXTERNAL | | | Eosinophils | performed at [facility], [address] | | LAB | | | | [address], | | | | | | [place] [address] | | | | + + + + + + | Absolute | 0.1Comment: Testing | 0 - 0.1 K/uL | EXTERNAL | | | Basophils | performed at [facility], [address] | | LAB | | | | [address], | | | | | | [place] [address] | | | | + + + + + + + + | Specimen | + + | Blood specimen | | (specimen) | + + + +---------+ + + | Performing | Address | City/State/Zipcode | Phone Number | | Organization | | | | + +---------+ + + | EXTERNAL LAB | | | | + +---------+ + + TSH (12/16/2013 5:46 AM PDT) + + + + + + | Component | Value | Ref Range | Performed | Pathologist | | | | | At | Signature | + + + + + + | TSH | 2.09Comment: Testing | 0.45 - 5.10 | EXTERNAL | | | | performed at [facility], [address] | uIU/mL | LAB | | | | [address], | | | | | | [place] [address] | | | | + + + + + + + + | Specimen | + + | Blood specimen | | (specimen) | + + + +---------+ + + | Performing | Address | City/State/Zipcode | Phone Number | | Organization | | | | + +---------+ + + | EXTERNAL LAB | | | | + +---------+ + + Phosphorus (12/16/2013 5:46 AM PDT) + + + + + + | Component | Value | Ref Range | Performed | Pathologist | | | | | At | Signature | + + + + + + | PHOSPHORUS | 2.8Comment: Testing | 2.3 - 4.8 mg/dL | EXTERNAL | | | | performed at [facility], [address] | | LAB | | | | [address] [facility], | | | | | | [place] [address] | | | | + + + + + + + + | Specimen | + + | Blood specimen | | (specimen) | + + + +---------+ + + | Performing | Address | City/State/Zipcode | Phone Number | | Organization | | | | + +---------+ + + | EXTERNAL LAB | | | | + +---------+ + + Magnesium (12/16/2013 5:46 AM PDT) + + + + + + | Component | Value | Ref Range | Performed | Pathologist | | | | | At | Signature | + + + + + + | Magnesium | 2.2Comment: Testing | 1.7 - 2.4 mg/dL | EXTERNAL | | | | performed at [facility], [address] | | LAB | | | | [address], | | | | | | [place] [address] | | | | + + + + + + + + | Specimen | + + | Blood specimen | | (specimen) | + + + +---------+ + + | Performing | Address | City/State/Zipcode | Phone Number | | Organization | | | | + +---------+ + + | EXTERNAL LAB | | | | + +---------+ + + CK Total (12/16/2013 5:46 AM PDT) + + + + + + | Component | Value | Ref Range | Performed | Pathologist | | | | | At | Signature | + + + + + + | CK, Total | 948 (H)Comment: Testing | 30 - 240 U/L | EXTERNAL | | | | performed at [facility];[address] | | LAB | | | | [address];[place] | | | | | | [address] | | | | + + + + + + + + | Specimen | + + | Blood specimen | | (specimen) | + + + +---------+ + + | Performing | Address | City/State/Zipcode | Phone Number | | Organization | | | | + +---------+ + + | EXTERNAL LAB | | | | + +---------+ + + Lipid Panel (12/16/2013 5:46 AM PDT) + + + + + + | Component | Value | Ref Range | Performed | Pathologist | | | | | At | Signature | + + + + + + | Cholesterol | 166Comment: Testing | mg/dL | EXTERNAL | | | | performed at [facility], [address] | | LAB | | | | [address], | | | | | | [place] [address] | | | | + + + + + + | Triglycerid | 55Comment: Testing | mg/dL | EXTERNAL | | | es | performed at [facility], [address] | | LAB | | | | [address], | | | | | | [place] [address] | | | | + + + + + + | HDL | 58Comment: Testing | mg/dL | EXTERNAL | | | | performed at [facility], [address] | | LAB | | | | [address], | | | | | | [place] [address] | | | | + + + + + + | LDL, | 97Comment: Testing | mg/dL | EXTERNAL | | | Calculated | performed at [facility], [address] | | LAB | | | | [address], | | | | | | [place] [address] | | | | + + + [...] + +---------+ + + Basic Metabolic Panel (12/16/2013 5:46 AM PDT) + + + + + + | Component | Value | Ref Range | Performed | Pathologist | | | | | At | Signature | + + + + + + | Na | 138Comment: Testing | 135 - 143 | EXTERNAL | | | | performed at [facility], [address] | mmol/L | LAB | | | | [address], | | | | | | [place] [address] | | | | + + + + + + | K | 4.1Comment: Testing | 3.5 - 4.9 | EXTERNAL | | | | performed at [facility], [address] | mmol/L | LAB | | | | [address], | | | | | | [place] [address] | | | | + + + + + + | Cl | 110 (H)Comment: Testing | 99 - 109 mmol/L | EXTERNAL | | | | performed at [facility], [address] | | LAB | | | | [address], | | | | | | [place] [address] | | | | + + + + + + | CO2 | 22 (L)Comment: Testing | 23 - 32 mmol/L | EXTERNAL | | | | performed at [facility], [address] | | LAB | | | | [address], | | | | | | [place], [place] [address] | | | | + + + + + + | Anion Gap | 10Comment: Testing | 5 - 20 mmol/L | EXTERNAL | | | | performed at [facility], [address] | | LAB | | | | [address], | | | | | | [place] [address] | | | | + + + + + + | Glucose, | 121 (H)Comment: Testing | 65 - 99 mg/dL | EXTERNAL | | | Fasting | performed at [facility], [address] | | LAB | | | | [address], | | | | | | [place] [address] | | | | + + + + + + | BUN | 8Comment: Testing | 8 - 25 mg/dL | EXTERNAL | | | | performed at [facility], [address] | | LAB | | | | [address], | | | | | | [place] [address] | | | | + + + + + + | Creatinine | 0.47 (L)Comment: Testing | 0.50 - 1.00 | EXTERNAL | | | | performed at [facility], [address] | mg/dL | LAB | | | | [address], | | | | | | [place] [address] | | | | + + + + + + | BUN/Creatin | 17Comment: Testing | | EXTERNAL | | | ine Ratio | performed at [facility], [address] | | LAB | | | | [address], | | | | | | [place] [address] | | | | + + + + + + | Calcium | 8.8Comment: Testing | 8.5 - 10.2 | EXTERNAL | | | | performed at [facility], [address] | mg/dL | LAB | | | | [address], | | | | | | [place] [address] | | | | + + + [...] [address] | | | | | | [address], | | | | | | [place] [address] | | | | + + + + + + + + | Specimen | + + | Blood specimen | | (specimen) | + + + +---------+ + + | Performing | Address | City/State/Zipcode | Phone Number | | Organization | | | | + +---------+ + + | EXTERNAL LAB | | | | + +---------+ + + Potassium (12/16/2013 3:30 AM PDT) + + + + + + | Component | Value | Ref Range | Performed | Pathologist | | | | | At | Signature | + + + + + + | K | 4.7Comment: SLT | 3.5 - 4.9 | EXTERNAL | | | | HEMOLYSISTesting | mmol/L | LAB | | | | performed at [facility];[address] | | | | | | [address];[place], [place] | | | | | | [address] | | | | + + + + + + + + | Specimen | + + | Blood specimen | | (specimen) | + + + +---------+ + + | Performing | Address | City/State/Zipcode | Phone Number | | Organization | | | | + +---------+ + + | EXTERNAL LAB | | | | + +---------+ + + PTT (12/16/2013 2:03 AM PDT) + + + + + + | Component | Value | Ref Range | Performed | Pathologist | | | | | At | Signature | + + + + + + | aPTT, | 50 (H)Comment: Testing | 23 - 32 seconds | EXTERNAL | | | Patient | performed at [facility];[address] | | LAB | | | | [address];[place], [place] | | | | | | [address] | | | | + + + + + + + + | Specimen | + + | Blood specimen | | (specimen) | + + + +---------+ + + | Performing | Address | City/State/Zipcode | Phone Number | | Organization | | | | + +---------+ + + | EXTERNAL LAB | | | | + +---------+ + + CK-MB (12/16/2013 12:20 AM PDT) + + + + + -+ | Component | Value | Ref Range | Performed | Pathologist | | | | | At | Signature | + + + + + -+ | CK-MB | 181.7 (H)Comment: | 0.5 - 3.6 ng/mL | EXTERNAL | | | | Testing performed at | | LAB | | | | [facility];[address] [place] [address] | | | | | | Bl;[place] [address] | | | | + + + + + -+ | CK-MB Index | 19.6Comment: CK INDEX | | EXTERNAL | | [...] | + +---------+ + + Troponin I (12/16/2013 12:20 AM PDT) + + + + + + | Component | Value | Ref Range | Performed | Pathologist | | | | | At | Signature | + + + + + + | Troponin I, | 12.6 ()Comment: 0.00 | 0.00 - 0.10 | EXTERNAL | | | Qual | to 0.10 CONSISTENT | ng/mL | LAB | | | | WITH NORMAL | | | | | | POPULATION0.11 to 0.60 | | | | | | CONSISTENT WITH | | | | | | INCREASED RISK FOR | | | | | | ADVERSE OUTCOMES> 0.60 | | | | | | CONSISTENT | | | | | | WITH WHO CRITERIA FOR | | | | | | ACUTE VT CKTRP PHONED TO | | | | | | [place] [address] BY | | | | | | LJREAD BACK RESULTS | | | | | | VERIFIEDTesting | | | | | | performed at [facility] | | | | | | [address];[place], [place] | | | | | | [address] | | | | + + + + + + + + | Specimen | + + | Blood specimen | | (specimen) | + + + +---------+ + + | Performing | Address | City/State/Zipcode | Phone Number | | Organization | | | | + +---------+ + + | EXTERNAL LAB | | | | + +---------+ + + Phosphorus (12/16/2013 12:20 AM PDT) + + + + + + | Component | Value | Ref Range | Performed | Pathologist | | | | | At | Signature | + + + + + + | PHOSPHORUS | 2.8Comment: Testing | 2.3 - 4.8 mg/dL | EXTERNAL | | | | performed at [facility];[address] | | LAB | | | | [address];[place] | | | | | | [address] | | | | + + + + + + + + | Specimen | + + | Blood specimen | | (specimen) | + + + +---------+ + + | Performing | Address | City/State/Zipcode | Phone Number | | Organization | | | | + +---------+ + + | EXTERNAL LAB | | | | + +---------+ + + Magnesium (12/16/2013 12:20 AM PDT) + + + + + + | Component | Value | Ref Range | Performed | Pathologist | | | | | At | Signature | + + + + + + | Magnesium | 2.4Comment: Testing | 1.7 - 2.4 mg/dL | EXTERNAL | | | | performed at [facility] | | LAB | | | | [address];[place] | | | | | | [address] | | | | + + + + + + + + | Specimen | + + | Blood specimen | | (specimen) | + + + +---------+ + + | Performing | Address | City/State/Zipcode | Phone Number | | Organization | | | | + +---------+ + + | EXTERNAL LAB | | | | + +---------+ + + CK Total (12/16/2013 12:20 AM PDT) + + + + + + | Component | Value | Ref Range | Performed | Pathologist | | | | | At | Signature | + + + + + + | CK, Total | 929 (H)Comment: Testing | 30 - 240 U/L | EXTERNAL | | | | performed at [facility] | | LAB | | | | [address];[place], [place] | | | | | | [address] | | | | + + + + + + + + | Specimen | + + | Blood specimen | | (specimen) | + + + +---------+ + + | Performing | Address | City/State/Zipcode | Phone Number | | Organization | | | | + +---------+ + + | EXTERNAL LAB | | | | + +---------+ + + Magnesium (12/15/2013 7:44 PM PDT) + + + + + + | Component | Value | Ref Range | Performed | Pathologist | | | | | At | Signature | + + + + + + | Magnesium | 1.7Comment: Testing | 1.7 - 2.4 mg/dL | EXTERNAL | | | | performed at [facility] | | LAB | | | | [address];[place], [place] | | | | | | [address] | | | | + + + [...] + +---------+ + + ECG 12 lead (12/15/2013 7:43 PM PDT) + + + + + + | Component | Value | Ref Range | Performed | Pathologist | | | | | At | Signature | + + + + + + | DIAGNOSIS: | Normal sinus rhythmRight | | EXTERNAL | | | | bundle branch block, | | LAB | | | | incompletePossible | | | | | | Anterior infarct (cited | | | | | | on or before | | | | | | 15-DEC-2013)ST and/or T | | | | | | wave abnormalities | | | | | | suggesting myocardial | | | | | | ischemiaAbnormal ECGWhen | | | | | | compared with ECG of | | | | | | 15-DEC-2013 | | | | | | 13:19,Questionable | | | | | | change in initial forces | | | | | | of Anterolateral leadsT | | | | | | wave inversion now | | | | | | evident in Inferior | | | | | | leadsNonspecific T wave | | | | | | abnormality, improved in | | | | | | Anterolateral | | | | | | leadsConfirmed by | | | | | | REMINGTON GEORGE ([id number]) on | | | | | | 12/16/2013 8:24:23 AM | | | | + + + + + + + + | Specimen | + + | | + + + + + | Narrative | Performed At | + + + | [facility] | EXTERNAL LAB | + + + + +---------+ + + | Performing | Address | City/State/Zipcode | Phone Number | | Organization | | | | + +---------+ + + | EXTERNAL LAB | | | | + +---------+ + + Troponin I (12/15/2013 6:26 PM PDT) + + + + + + | Component | Value | Ref Range | Performed | Pathologist | | | | | At | Signature | + + + + + + | Troponin I, | 4.53 ()Comment: 0.00 | 0.00 - 0.10 | EXTERNAL | | | Qual | to 0.10 CONSISTENT | ng/mL | LAB | | | | WITH NORMAL | | | | | | POPULATION0.11 to 0.60 | | | | | | CONSISTENT WITH | | | | | | INCREASED RISK FOR | | | | | | ADVERSE OUTCOMES> 0.60 | | | | | | CONSISTENT | | | | | | WITH WHO CRITERIA FOR | | | | | | ACUTE [place] CALLED | | | | | | RESULTSREAD BACK RESULTS | | | | | | VERIFIEDRIKI/OSMAN Swann AT | | | | | | 1915 BY SALTesting | | | | | | performed at [facility] | | | | | [address];[place], [place] | | | | | | [address] | | | | + + + + + + + + | Specimen | + + | Blood specimen | | (specimen) | + + + +---------+ + + | Performing | Address | City/State/Zipcode | Phone Number | | Organization | | | | + +---------+ + + | EXTERNAL LAB | | | | + +---------+ + + PTT (12/15/2013 6:26 PM PDT) + + + + + + | Component | Value | Ref Range | Performed | Pathologist | | | | | At | Signature | + + + + + + | aPTT, | 29Comment: Testing | 23 - 32 seconds | EXTERNAL | | | Patient | [place] at [id number] | | [facility] | | | | [address];[place], [place] | | | | | | [address] | | | | + + + + + + + + | Specimen | + + | | + + + +---------+ + + | Performing | Address | City/State/Zipcode | Phone Number | | Organization | | | | + +---------+ + + | EXTERNAL LAB | | | | + +---------+ + + CT Angiogram Pulmonary w Contrast (12/15/2013 5:22 PM PDT) + + | Specimen | + + | | + + + + + | Impressions | Performed At | + + + | 1. No evidence of pulmonary embolic disease. This imaging | | | disputed ventilation/perfusion scan. Emphysema, pulmonary fibrosis | | | and a large hiatus hernia may be confounding 2. The possibility | | | of aspiration is at least a consideration given the reticular | | | parenchymal disease and atelectasis in both posterior sulci, although | | | the large hiatus hernia may contribute. 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 | | | TECHNIQUE: CT pulmonary angiogram after the uneventful administration | | | of 70 cc of [address]. [address] pulmonary angiogram with MIP images. | | | Coronal imaging through the pulmonary arterial tree. No similar | | | prior study for comparison. 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 | | | Cardiomegaly and vasculopathy also. Degenerative changes of the spine, | | | limited evaluation as the arms are not elevated. Lung windows | | | demonstrate symmetric apical emphysematous disease with fibrosis. | | | There is atelectasis about the large hiatus hernia. Reticular | | | parenchymal disease and atelectasis in the posterior sulcus on the | | | right also. No consolidation or discrete lesion though. Aspiration | | | of the right base is at least a consideration. Bone windows are | | | without fracture or aggressive lesion. Degenerative changes as | | | commonly seen in a patient of this age. What is seen of the | | | abdomen demonstrates clips in the gallbladder fossa. Scarring in the | | | posterior superior left kidney. About the anterior chest wall | | | there is a subcutaneous generator. Soft tissue windows the chest | | | demonstrate a normal thyroid. No adenopathy by size criteria, the | | | esophagus above the herniated stomach is somewhat patulous, mild wall | | | thickening. CT angiogram demonstrates a fairly high sensitivity | | | examination with opacification of the pulmonary trunk to 370 | | | Hounsfield units. There is no evidence of pulmonary embolic disease to | | | the lobar segmental junction. | | + + + + --------+ | Procedure Note | + --------+ | Jerrell, Rad Conversion - 11/20/2018 12:52 PM PDT HISTORY: 73-year-old female with | | unexplained chest pain. TECHNIQUE: CT pulmonary angiogram after the uneventful | | administration of 70 cc of Isovue 370. CT pulmonary angiogram with MIP images. Coronal | | imaging through the pulmonary arterial tree. No similar prior study for comparison. 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 Cardiomegaly and vasculopathy also. Degenerative changes of the spine, | | limited evaluation as the arms are not elevated. Lung windows demonstrate symmetric | | apical emphysematous disease with fibrosis. There is atelectasis about the large hiatus | | hernia. Reticular parenchymal disease and atelectasis in the posterior sulcus on the | | right also. No consolidation or discrete lesion though. Aspiration of the right base is | | at least a consideration. Bone windows are without fracture or aggressive lesion. | | Degenerative changes as commonly seen in a patient of this age. What is seen of the | | abdomen demonstrates clips in the gallbladder fossa. Scarring in the posterior superior | | left kidney. About the anterior chest wall there is a subcutaneous generator. Soft | | tissue windows the chest demonstrate a normal thyroid. No adenopathy by size criteria, | | the esophagus above the herniated stomach is somewhat patulous, mild wall thickening. CT | | angiogram demonstrates a fairly high sensitivity examination with opacification of the | | pulmonary trunk to 370 Hounsfield units. There is no evidence of pulmonary embolic | | disease to the lobar segmental junction. IMPRESSION: 1. No evidence of pulmonary | | embolic disease. This imaging disputed ventilation/perfusion scan. Emphysema, pulmonary | | fibrosis and a large hiatus hernia may be confounding 2. The possibility of aspiration | | is at least a consideration given the reticular parenchymal disease and atelectasis in | | both posterior sulci, although the large hiatus hernia may contribute. The near entirety | | of the stomach is herniated into the thorax | |Emphysema, pulmonary fibrosis and a large hiatus hernia may be confounding | | | |2. The possibility of aspiration is at least a consideration given the reticular parenchyma l disease and atelectasis in both posterior sulci, although the large hiatus hernia may cont ribute. | | | |The near entirety of the stomach is herniated into the thorax | | | | | + --------+ VAS Lower Extremity Venous Bilateral (12/15/2013 4:50 PM PDT) + + | Specimen | + + | | + + + + + | Impressions | Performed At | + + + | No evidence of deep venous thrombosis | | + + + + + + | Narrative | Performed At | + + + | HISTORY: 73 -year-old female with pain TECHNIQUE: Ultrasound | | | of the bilateral lower extremity deep venous systems. No prior | | | similar study available for comparison. This is a true duplex | | | examination with generation and interrogation of Doppler spectral | | | analysis, color flow and investigation waveforms. Where | | | investigated, these findings were unremarkable and supportive of the | | | conclusions of the attached report. FINDINGS: Normal | | | compression, color flow, respiratory variation and mechanical | | | augmentation at all interrogated points demonstrated.. Duplex | | | examination demonstrating normal color flow, Doppler spectral analysis | | | as expected for the venous structures here. Incidental findings | | | none | | + + + + + | Procedure Note | + + | Jerrell, Rad Conversion - 11/20/2018 12:52 PM PDT HISTORY: 73 -year-old female with | | pain TECHNIQUE: Ultrasound of the bilateral lower extremity deep venous systems. No | | prior similar study available for comparison. This is a true duplex examination with | | generation and interrogation of Doppler spectral analysis, color flow and investigation | | waveforms. Where investigated, these findings were unremarkable and supportive of the | | conclusions of the attached report. FINDINGS: Normal compression, color flow, | | respiratory variation and mechanical augmentation at all interrogated points | | demonstrated.. Duplex examination demonstrating normal color flow, Doppler spectral | | analysis as expected for the venous structures here. Incidental findings none | | IMPRESSION: No evidence of deep venous thrombosis | | | |Incidental findings none | | | |IMPRESSION: | |No evidence of deep venous thrombosis | | | | | + + NM Lung Perfusion Ventilation (12/15/2013 4:22 PM PDT) + + | Specimen | + + | | + + + + + | Impressions | Performed At | + + + | 1. Borderline high probability of pulmonary embolism. | | | | | + + + + + + | Narrative | Performed At | + + + | [facility]AL[facility] BRASH[facility] [place] LUNG VENTILATION PERFUSION 12/15/2013 4:22 PM | | | HISTORY: Presumed chest pain or shortness of breath and concern for | | | pulmonary embolism. TECHNIQUE: The patient was given 9 mCi | | | xenon-133 gas via inhalation and that was followed by imaging of the | | | lungs in standard projections. They were then given 6.6 mCi of | | | technetium 99m MAA IV and that was followed by further imaging of the | | | lungs in similar standard projections. FINDINGS: Compared to a | | | chest x-ray of the same date. There is a large matched defect in the | | | left lower chest, related to a very large hiatal hernia on chest | | | x-ray. There are multiple mismatched perfusion defects, most prominent | | | in the upper lungs. There are 2 large mismatch perfusion defects | | | and several small ones. Findings suggest a borderline high probability | | | of pulmonary embolism according to PIOPED criteria. | | + + + + + | Procedure Note | + + | Jerrell, Lorenzo Conversion - 11/20/2018 12:52 PM SWAPNA ACU[facility]A LUNG VENTILATION | | PERFUSION12/15/2013 4:22 PM HISTORY:Presumed chest pain or shortness of breath and | | concern for pulmonary embolism. TECHNIQUE:The patient was given 9 mCi xenon-133 gas via | | inhalation and that was followed by imaging of the lungs in standard projections. They | | were then given 6.6 mCi of technetium 99m MAA IV and that was followed by further | | imaging of the lungs in similar standard projections. FINDINGS:Compared to a chest x-ray | | of the same date. There is a large matched defect in the left lower chest, related to a | | very large hiatal hernia on chest x-ray. There are multiple mismatched perfusion | | defects, most prominent in the upper lungs. There are 2 large mismatch perfusion defects | | and several small ones. Findings suggest a borderline high probability of pulmonary | | embolism according to PIOPED criteria. IMPRESSION: 1. Borderline high probability of | | pulmonary embolism. | | PM | |large mismatch perfusion defects and several small ones. Findings suggest a borderline high probability of pulmonary embolism according to PIOPED criteria. | | | |IMPRESSION: | |1. Borderline high probability of pulmonary embolism. | | | | | + + XR Chest 2 Vws (12/15/2013 3:22 PM PDT) + + | Specimen | + + | | + + + + + | Impressions | Performed At | + + + | FINDINGS/ IMPRESSION: Bibasilar atelectasis, more prominent on | | | the left. Lungs are otherwise clear. Large hiatal hernia with | | | air-fluid level. Mediastinal contours are normal. Heart size is | | | normal. No pneumothorax, no pleural effusion. No acute osseous | | | abnormality. Electronically signed by Kapil Saldivar MD on | | | 12/15/2013 3:26 PM | | + + + + + + | Narrative | Performed At | + + + | NATALY BRASHER 1940 73 years Female XR CHEST 2 VIEW FRONTAL | | | AND LATERAL 12/15/2013 3:22 PM INDICATION: Chest pain | | | COMPARISON: None. TECHNIQUE: Two view chest, PA and lateral views | | | | | + + + + + | Procedure Note | + + | Jerrell, Rad Conversion - 11/20/2018 12:52 PM PDT NATALY BRASHER | | 1940 | | 73 years Female | | XR CHEST 2 VIEW FRONTAL AND LATERAL | | 12/15/2013 3:22 PM | | | | INDICATION: Chest pain | | | | COMPARISON: None. | | | | TECHNIQUE: Two view chest, PA and lateral views | | | | IMPRESSION: | | FINDINGS/ IMPRESSION: | | | | Bibasilar atelectasis, more prominent on the left. Lungs are otherwise clear. | | | | Large hiatal hernia with air-fluid level. | | | | Mediastinal contours are normal. Heart size is normal. | | | | No pneumothorax, no pleural effusion. | | | | No acute osseous abnormality. | | | | | | | + + ECG 12 lead (12/15/2013 1:19 PM PDT) + + + + + + | Component | Value | Ref Range | Performed | Pathologist | | | | | At | Signature | + + + + + + | DIAGNOSIS: | Normal sinus rhythmLow | | EXTERNAL | | | | voltage QRSAnterolateral | | LAB | | | | infarct , age | | | | | | undeterminedAbnormal | | | | | | ECGWhen compared with | | | | | | ECG of 15-DEC-2013 | | | | | | 10:48,Anterior infarct | | | | | | is now | | | | | | PresentAnterolateral | | | | | | infarct is now | | | | | | PresentNonspecific T | | | | | | wave abnormality, worse | | | | | | in Lateral leadsThis ECG | | | | | | [...] (500), | | | | | | scientific publications editor MELANIE MENDENHALL | | | | | | (4) on 12/15/2013 2:01:00 | | | | | | PM | | | | + + + + + + + + | Specimen | + + | | + + + + + | Narrative | Performed At | + + + | R sided EKG Historically converted procedure from [employer]le Epic | EXTERNAL LAB | | environment | | + + + + +---------+ + + | Performing | Address | City/State/Zipcode | Phone Number | | Organization | | | | + +---------+ + + | EXTERNAL LAB | | | | + +---------+ + + D-Dimer (12/15/2013 11:00 AM PDT) + + + + + + | Component | Value | Ref Range | Performed | Pathologist | | | | | At | Signature | + + + + + + | D-DIMER, | 0.72 (H)Comment: D Dimer | 0.19 - 0.50 | EXTERNAL | | | MANUAL | results less than 0.50 | mg/L FEU | LAB | | | | mg/L FEU may rule out | | | | | | DVT and PE. However, | | | | | | all laboratory results | | | | | | should be interpreted in | | | | | | the context of all | | | | | | available clinical, | | | | | | radiologic and | | | | | | laboratory | | | | | | information.Testing | | | | | | performed at [facility] | | | | | | [facility];[place], [place] | | | | | | [address] | | | | + + + + + + + + | Specimen | + + | Blood specimen | | (specimen) | + + + +---------+ + + | Performing | Address | City/State/Zipcode | Phone Number | | Organization | | | | + +---------+ + + | EXTERNAL LAB | | | | + +---------+ + + B Type Natriuretic Peptide (12/15/2013 11:00 AM PDT) + + + + + + | Component | Value | Ref Range | Performed | Pathologist | | | | | At | Signature | + + + + + + | BNP | 62.4Comment: Testing | 0 - 100 pg/mL | EXTERNAL | | | | performed at [facility] | | LAB | | | | [address];[place], [place] | | | | | | [address] | | | | + + + [...] + +---------+ + + ECG 12 lead (12/15/2013 10:48 AM PDT) + + + + + + | Component | Value | Ref Range | Performed | Pathologist | | | | | At | Signature | + + + + + + | DIAGNOSIS: | Normal sinus rhythmST & | | EXTERNAL | | | | T wave abnormality, | | LAB | | | | consider anterior | | | | | | ischemiaAbnormal ECGNo | | | | | | previous ECGs | | | | | | availableThis ECG | | | | | | [...] (500), | | | | | | scientific publications editor MELANIE MENDENHALL | | | | | | (4) on 12/15/2013 2:00:57 | | | | | | PM | | | | + + + + + + + + | Specimen | + + | | + + + + + | Narrative | Performed At | + + + | Historically converted procedure from [employer] environment | EXTERNAL LAB | + + [...] pain Chest pain, unspecified | + + documented in this encounter
--- OUTSIDE RECORDS SUMMARY | ~2019-12-11 | XMS | Encounter Summary ---
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 Name | Role | Phone | + +------+ + | David Arias MD | PCP | | + +------+ + Reason for Visit + + + | Reason | Comments | + + + | Pulmonary Disease | 1 mo follow up | | Appointment | | + + + Encounter Details +--------+---------+ + + + | Date | Type | Department | Care Team | Description | +--------+---------+ + + + | 06/03/ | Office | [facility] | Oleksandr Hyde, | COPD exacerbation | | 2019 | Visit | [address]ULMONARY [address] | MD [address] | ([facility]) (Primary Dx); | | | | [place], | [place], [place] | Centrilobular | | | | [place] [address] | [id number] | emphysema ([facility]); | | | | [phone] | | Hypoxemia | +--------+---------+ + + [...] + + + + | Pulse | 90 | 06/03/2018 8:53 AM | | | | | PST | | + + + + + | Temperature | - | - | | + + + + + | Respiratory Rate | - | - | | + + + + + | Oxygen Saturation | 98% | 06/03/2018 8:53 AM | 2L PULSE | | | | PST | | + + + + + | Inhaled Oxygen | - | - | | | Concentration | | | | + + + + + | Weight | 71.3 kg (157 lb 3 | 06/03/2018 8:53 AM | | | | oz) | PST | | + + + + + | Height | 162.6 cm (5' 4") | 06/03/2018 8:53 AM | | | | | PST | | + + + + + | Body Mass Index | 26.98 | 06/03/2018 8:53 AM | | | | | PST | | + + + + + documented in this encounter Patient Instructions Patient Instructions Oleksandr Hyde MD - 06/03/2018 9:00 AM PST COPD Flare You have had [...] worse Dizziness or weakness Date Last Reviewed: 12/07/201519999022-7762 [employer]. [address] [place] [address], [place] [address]. All righ ts reserved. This information is not intended as a substitute for professional medical care. Always follow your healthcare professional's instructions. Prednisone tablets Brand Names: Deltasone, Predone, Sterapred, Sterapred DS What is this medicine? PREDNISONE (PRED ni sone) is a corticosteroid. It is commonly used to treat inflammation of the skin, joints, lungs, and other organs. Common conditions treated include asthma, allerg ies, and arthritis. It is also used for other conditions, such as blood disorders and diseas es of the adrenal glands. How should I use this medicine? Take this medicine by mouth with a glass of water. Follow the directions on the prescriptio n label. Take this medicine with food. If you are taking this medicine once a day, take it i n the morning. Do not take more medicine than you are told to take. Do not suddenly stop hedy ing your medicine because you may develop a severe reaction. Your doctor will tell you how m uch medicine to take. If your doctor wants you to stop the medicine, the dose may be slowly lowered over time to avoid any side effects. Talk to your staff internist office based only regarding the use of this medicine in children. Special care may be needed. What side effects may I notice from receiving this medicine? Side effects that you should report to your doctor or health director of managed care as soon as p ossible: allergic reactions like skin rash, itching or hives, swelling of the face, lips, or tong ue changes in emotions or moods changes in vision depressed mood eye pain fever or chills, cough, sore throat, pain or difficulty passing urine increased thirst swelling of ankles, feet Side effects that usually do not require medical attention (report to your doctor or health director of managed care if they continue or are bothersome): confusion, excitement, restlessness headache nausea, vomiting skin problems, acne, thin and shiny skin trouble sleeping weight gain What may interact with this medicine? Do not take this medicine with any of the following medications: metyrapone mifepristone This medicine may also interact with the following medications: aminoglutethimide amphotericin B aspirin and aspirin-like medicines barbiturates certain medicines for diabetes, like glipizide or glyburide cholestyramine cholinesterase inhibitors cyclosporine digoxin diuretics ephedrine female hormones, like estrogens and control pills isoniazid ketoconazole NSAIDS, medicines for pain and inflammation, like ibuprofen or naproxen phenytoin rifampin toxoids vaccines warfarin What if I miss a dose? If you miss a dose, take it as soon as you can. If it is almost time for your next dose, ta lk to your doctor or health director of managed care. You may need to miss a dose or take an extra dose. Do not take double or extra doses without advice. Where should I keep my medicine? Keep out of the reach of children. Store at room temperature between 15 and 30 degrees C (59 and 86 degrees F). Protect from l ight. Keep container tightly closed. Throw away any unused medicine after the expiration antonio e. What should I tell my health care provider before I take this medicine? They need to know if you have any of these conditions: Columbus's syndrome diabetes glaucoma heart disease high blood pressure infection (especially a virus infection such as chickenpox, cold sores, or herpes) kidney disease liver disease mental illness myasthenia gravis osteoporosis seizures stomach or intestine problems thyroid disease an unusual or allergic reaction to lactose, prednisone, other medicines, foods, dyes, or preservatives or trying to get breast-feeding What should I watch for while using this medicine? Visit your doctor or health director of managed care for regular checks on your progress. If you a re taking this medicine over a prolonged period, carry an identification card with your name and address, the type and dose of your medicine, and your doctor's name and address. This medicine may increase your risk of getting an infection. Tell your doctor or health ca re professional if you are around anyone with measles or chickenpox, or if you develop sores or blisters that do not heal properly. If you are going to have surgery, tell your doctor or health director of managed care that you hav e taken this medicine within the last twelve months. Ask your doctor or health director of managed care about your diet. You may need to lower the amou nt of salt you eat. This medicine may affect blood sugar levels. If you have diabetes, check with your doctor o r health director of managed care before you change your diet or the dose of your diabetic medicine . NOTE:This sheet is a summary. It may not cover all possible information. If you have questi ons about this medicine, talk to your doctor, pharmacist, or health care provider. Copyright 2018 [employer] documented in this encounter Progress Notes Oleksandr Hyde MD - 06/03/2018 9:00 AM PSTFormatting of this note might be different f rom the original. Pulmonary Follow Up 06/03/2018 HPI Priscila Brasher is a 77 y.o. female patient of David Arias MD here today for follow up of Gold Stage I, hypoxemia and significant emphysema noted on CT imaging. The last pulmonary clinic visit was on 03/22/18. Since their last appointment they feel lik e their breathing issues have been stable. They have had any acute pulmonary illnesses. Symptoms for 4-5 days. The patient has not required a prednisone taper since our last clinic appointment. Likesandra se Francois has not required antibiotics for a COPD exacerbation since our last clinic appoin [facility]. The patient is currently on a daily regimen of budesonide and Performist for their COPD. T luis do not feel like this medication regimen is/are controlling their symptoms. They are u sing their Duoneb nebulizer, 0-1 times a week. Today we discussed other potential settings in which Priscila might use DuoNeb. Currently the patient is able to walk 100 feet on O2 at their own pace on level ground befo re developing dyspnea. They are exercising regularly. Their typical exercise consists of wor ks out at [facility]. Priscila are not enrolled in cardiac/pulmonary rehabilitation. They espinoza ve completed pulmonary rehabilitation in the past. Priscila does cough chronically and does produce mucous (but can't get out). They have not had hemoptysis since our [...] and 2 LPM at rest. They have reported recent symptoms of nasal congestion and ESPINOZA. Notes runny nose but post n valentina drip. The patient have received this year's influenza vaccination. They are up to date with thei r Pneumovax and Prevnar 13. Past Medical History Past Medical History: Diagnosis Date Acid reflux disease Acute [place] (HCC) 12/15/13 4 stents placed Arthritis Depression COLINDRES (dyspnea on exertion) Emphysema Normal FEV1 and extensive on CT scan Fatigue Hepatitis B infection 1969' Hiatal hernia History of migraine headaches Hypoxemia Non Hodgkin's lymphoma (HCC) 2008 no recurrence, seen by Dr. Gonzalez annually Osteoporosis Pneumonia Episodes 1990 and 2014 Polio 1953 Pulmonary embolus (HCC) 2009 after surgery Reflux Rheumatic fever 1948 enlarged heart and murmur [...] 1 DOSE (ZOSTAVAX) 10/24/2008, 01/24/2009, 06/16/2009 Objective Pulse 90 | Ht 1.626 m (5' 4") | Wt 71.3 kg (157 lb 3 oz) | SpO2 98% Comment: 2L PULSE | BMI 26.98 kg/m Physical Exam Constitutional: She is oriented [...] and the left lower field. She has wheezes (few end expira tory). She has no rhonchi. She has no rales. Musculoskeletal: She exhibits no edema. Lymphadenopathy: She has no cervical adenopathy. Neurological: She is alert and oriented to person, place, and time. Gait normal. Skin: Skin is warm and intact. No cyanosis. Nails show no clubbing. Psychiatric: Affect normal. Data: None Assessment 1. COPD exacerbation symptoms over the last 4-5 days. Given the severity of the patient's emphysema it is reasonable to treat Priscila with an ant ibiotic to cover bacterial pathogens. I have also suggested a short course of prednisone. 2. Centrilobular emphysema noted on CT imaging. Airflow obstruction on pulmonary functi on testing relatively mild and out of proportion to the severity of the patient's emphysema. Currently treated with budesonide, Performist and as needed DuoNeb. Today we discussed set tings in which Priscila could increase her use of DuoNeb. 3. Hypoxemia stable O2 requirements as noted above. Plan 1. Azithromycin 500 mg initially followed by 250 mg daily for 4 additional days. 2. Prednisone taper starting at 30 mg a day and decreasing by 10 mg every 2 days until com plete. 3. Close pulmonary clinic follow-up is recommended. Specifically pulmonary clinic follow- up appointment in 3 weeks' time. CC: David Arias MD documented in this encounter Plan of Treatment Not on filedocumented as of this encounter Visit Diagnoses + + | Diagnosis | + + | COPD exacerbation (HCC) - Primary Obstructive chronic bronchitis with exacerbation | + + | Centrilobular emphysema (HCC) | + + | Hypoxemia | + + documented in this encounter
--- OUTSIDE RECORDS SUMMARY | ~2019-12-11 | XMS | Encounter Summary ---
Demographics + + + | Address | [address] | | | [place] [address] | + + + | Home Phone | | + + + | Preferred Language | Unknown | + + + | Marital Status | Single | + + + | Islam Affiliation | Unknown | + + + | Race | White | + + + | Ethnic Group | Not or | + + + Author + + + | Author | [facility] | | | and [place] | + + + | Organization | [facility] | | | and [...] Team Providers + +------+ + | Care Uppers Edge Burnisher Name | Role | Phone | + +------+ + | David Arias MD | PCP | | + +------+ + Reason for Visit + +--------+ + | Reason | Onset | Comments | | | Date | | + +--------+ + | Medication Refill | 05/28/ | | | | 2016 | | + +--------+ + Encounter Details +--------+--------+ + + + | Date | Type | Department | Care Team | Description | +--------+--------+ + + + | 05/28/ | Refill | [facility] | Oleksandr Hyde, | Medication Refill | | 2017 | | PULMONARY [address] | MD [address] | | | | | [place], | [place], [place] | | | | | [place] [address] | [id number] | | | | | [phone] | | | +--------+--------+ + + + [...]
--- OUTSIDE RECORDS SUMMARY | ~2019-12-11 | XMS | Encounter Summary ---
Demographics + + + | Address | [address] | | | [place] [address] | + + + | Home Phone [...] Team Providers + +------+ + | Care Pouncer Machine Name | Role | Phone | + +------+ + | Krystyna Luciano MD | PCP | | + +------+ + Encounter Details +--------+ + + + + | Date | Type | Department | Care Team | Description | +--------+ + + + + | 02/24/ | Hospital | [facility] | Conversion | | | 2014 - | Encounter | [facility] | Transaction, | | | | | CLINICAL DECISION | Provider Unknown | | | 02/25/ | | [address] | [phone] | | | 2013 | | [place], [place] | | | | | | [address] | Isaias Kimble MD | | | | | [phone] | [address] | | | | | | [place] [address] | | | | | | [phone] | | | | | | | [...] documented as of this encounter Discharge Summaries Isaias Kimble - 02/25/2014 9:20 AM PST Discharge Summaries by Isaias Kimble MD at 02/25/14919 Author: Isaias Kimble MD Service: Cardiology Author Type: Physician Filed: 02/26/14 1903 Date of Service: 02/25/14919 Status: Signed Chocolate Production Machine Operator: Isaias Kimble MD (Physician) Related Notes: Original Note by Isaias Kimble MD (Physician) filed at 02/25/14 1219 [facility] Service: Cardiology Discharge Summary Date of Admission: 02/24/2014 Date of Discharge: 02/25/2014 Discharge Physician: Isaias Kimble MD PROCEDURES: 1. Left heart catheterization through the right radial artery. 2. Angioplasty for the left anterior descending with 2 overlapping drug-eluting stents, Res olute Integrity 2.25 x 14 mm and 2.5 x 18 mm, after fractional flow reserve of the left ante rior descending with a value of 0.65. HOSPITAL COURSE: Ms. Brasher is a 73-year-old lady with known of coronary artery disease with previous angiopla sty of the RCA who presented to the clinic complaining of no new onset of chest pain with ty pical features. She was referred for left heart catheterization for further evaluation and f ound to have patent stents in the RCA. FFR for the LAD for intermediate lesion was positive at 0.65. Angioplasty of the LAD was done with 2 overlapping drug-eluting stents. She tolerat ed the procedure well and she was observed overnight in the hospital with no events. She wa s discharged the next day in stable condition. DISCHARGE EXAM Vital Signs: BP 112/62 | Pulse 86 | Temp(Src) 98.4 F (36.9 C) (Oral) | Resp 16 | Ht 1.651 m (5' 5") | Wt 63.504 kg (140 lb) | BMI 23.3 kg/m2 | SpO2 97% HEENT: No xanthelasmas. Extraocular movements were intact. [...] bruises or rash. DATA: Recent Labs Lab 02/24/14 1049 NA 142 K 4.1 CO2 27 BUN 21 CREATININE 0.84 No results found for this basename: CKTOTAL, CKMB, CKMBINDEX, TROPONINI, in the last 168 h ours Recent Labs Lab 02/24/14 1049 WBC 8.6 HGB 13.6 HCT 42.0 MCV 90.1 PLT 311 PLAN: 1. Aspirin 81 mg indefinitely. 2. Plavix 75 mg for 30 months. 3. Aggressive risk factor modifications. 4. Followup in the clinic within 3 to 4 weeks. 5. Referral to cardiac rehab as an outpatient. DISCHARGE MEDICATIONS: Medication List CONTINUE taking these medications amitriptyline 25 MG tablet Refills: 0 Commonly known as: ELAVIL aspirin 81 MG tablet QTY: 30 tablet Refills: 11 Take 1 tablet by mouth daily. atorvastatin 80 MG tablet QTY: 30 tablet Refills: 3 Commonly known as: LIPITOR Take 1 tablet by mouth daily. AZO CRANBERRY PO Refills: 0 clopidogrel 75 MG tablet QTY: 90 tablet Refills: 3 Commonly known as: PLAVIX Take 1 tablet by mouth daily. cyclobenzaprine 5 MG tablet Refills: 0 Commonly known as: FLEXERIL dexamethasone 2 MG tablet Refills: 0 Commonly known as: DECADRON diclofenac 75 MG EC tablet Refills: 0 Commonly known as: VOLTAREN ergocalciferol 58965 UNITS capsule Refills: 0 Commonly known as: DRISDOL fluticasone 50 MCG/BLIST diskus inhaler Refills: 0 Commonly known as: FLOVENT DISKUS metoclopramide 10 MG tablet Refills: 0 Commonly known as: REGLAN metoprolol 25 MG tablet Refills: 0 Commonly known as: LOPRESSOR misoprostol 200 MCG tablet Refills: 0 Commonly known as: CYTOTEC naproxen 500 MG tablet Refills: 0 Commonly known as: NAPROSYN nitroGLYCERIN 0.4 MG SL tablet Refills: 0 Commonly known as: NITROSTAT oxycodone 5 MG capsule Refills: 0 Commonly known as: OXY-IR sumatriptan 100 MG tablet Refills: 0 Commonly known as: IMITREX topiramate 100 MG tablet Refills: 0 Commonly known as: TOPAMAX WOMENS 50+ MULTI VITAMIN/MIN Tabs Refills: 0 Disposition: Home Condition: Stable Code Status: Full Code Discharge took 20 minutes, to include final examination, discussion of admission, and prepa ration of prescriptions, instructions for on-going care, follow-up and documentation of disc harge summary. Isaias Kimble MD 02/25/2014 documented in this encount er Medications at Time of Discharge + + [...] 0 | | | | (VITAMIN D3) 60151 | mouth Once a week. | | [...] Progress Notes Conversion Transaction, Provider Unknown - 02/25/2014 1:15 PM PSTFormatting of this note m ight be different from the original. Case Management by Nilda Hassan RN at 02/25/14 1315 Author: Nilda Hassan RN Service: (none) Author Type: Registered Nurse Filed: 02/25/14 1315 Date of Service: 02/25/145 Status: Signed Chocolate Production Machine Operator: Nilda Hassan RN (Registered Nurse) Discharge planning: CM spoke with the lead RN and/or pt's RN regarding discharge needs. P er their report, they did not identify needs and feel that the pt does not need to be seen b y CM at this time. I encouraged them to enter a CM consult as needs arise. onver jill Transaction, Provider Unknown - 02/25/2014 12:02 PM PST Progress Notes by Kushal Ricardo RN at 02/25/14 1202 Author: Kushal Ricardo RN Service: (none) Author Type: Registered Nurse Filed: 02/25/14 1203 Date of Service: 02/25/14 1202 Status: Signed Chocolate Production Machine Operator: Kushal Ricardo RN (Registered Nurse) Pts family here to transport home. Pt discharged. onver jill Transaction, Provider Unknown - 02/25/2014 10:20 AM PST Nurse Progress Note by Kushal Ricardo RN at 02/25/14 1020 Author: Kushal Ricardo RN Service: (none) Author Type: Registered Nurse Filed: 02/25/14 1021 Date of Service: 02/25/14 1020 Status: Signed Chocolate Production Machine Operator: Kushal Ricardo RN (Registered Nurse) Discharge instructions and f/u care reviewed. Pt waiting for ride to come from [place], then she will discharge home. All questions answered. Will continue to monitor until pt le aves. onver jill Transaction, Provider Unknown - 02/24/2014 2:55 PM PST Progress Notes by Mary Jane Reynolds RPH at 02/24/14 6609 Author: Mary Jane Reynolds RPH Service: (none) Author Type: Pharmacist Filed: 02/24/141454 Date of Service: 02/24/141454 Status: Signed Chocolate Production Machine Operator: Mary Jane Reynolds RPH (Pharmacist) Clinical Pharmacy Note: Renal Monitoring Priscila Rojas Sameera 73 y.o. female Ht Readings from Last 1 Encounters: 02/24/14 1.651 m (5' 5") Wt Readings from Last 1 Encounters: 02/24/14 63.504 kg (140 lb) CREATININE: 0.84 (02/24/14 1049) Estimated creatinine clearance - 55.3 mL/min Pharmacy dosing for renal function per Dr. Coughlin. Currently, there are no medications needing to be adjusted. Pharmacy will continue to monit or for changes in medication orders and in renal function and adjust accordingly. Mary Jane Reynolds RPh 02/24/2014 2:55 PM docume nted in this encounter H&P Notes Cristal Coughlin PA - 02/24/2014 11:14 AM PSTFormatting of this note might be diffe rent from the original. H&P by Cristal Coughlin PA-C at 02/24/14 8588 Author: Cristal Coughlin PA-C Service: Cardiology Author Type: Physician Clinical Laboratory Director - Certified Filed: 02/24/141114 Date of Service: 02/24/141113 Status: Signed Chocolate Production Machine Operator: Cristal Coughlin PA-C (Physician Clinical Laboratory Director - Certified) [facility] Service: Cardiology Pre-Operative History & Physical Interval Update There have been no significant clinical changes since the completion of the following H&P. Moderate Sedation Presedation Assessment completed. ASA Classification: ASA 3: Patient with a severe systemic disease Mallampati Classification: IV: Only hard palate visible Cristal Coughlin PA-C 02/24/2014 *CORE MEASURES REMINDER: If the patient has a known or suspected infection prior to surger y, please add diagnosis to the problem list (consider: Infection 136.9). Date of visit: 02/16/2014Primary Care Physician: KRYSTYNA LUCIANO CHIEF COMPLAINT: Chief Complaint Patient presents with Follow-up office visit having cp cardiac rehab asked to make an appointment Palpitations HISTORY OF PRESENT ILLNESS: Ms. Brasher is a 73-year-old female who presented to [facility] December 15, 2013, with complaints of chest discomfort. She was found to have a high risk non-ST elevation NH, was taken to the catheterization lab and underwent left heart catheterization with successfu l angioplasty for the right coronary artery with 2 nonoverlapping drug-eluting stents in the right atrioventricular groove artery, Promus Premier 2.25 x 12 mm in the distal right coron moses artery and Promus Premier 2.25 x 16 mm. The patient presents today for followup with concerns of recurrent chest discomfort. She st ates that over the last 4 to 5 days she has noted recurrence of chest heaviness that radiate s to her neck or jaw. The patient described as an achy-type pain. Initially this pain occurr ed while she was sleeping at night and had gotten up to go to the restroom. It lasted a coup le of minutes then went away when she rested. She does note that the pain usually occurs onc e a day and is sometimes related to exertion. She has also noted increased fatigue over the last week, as well as increased shortness of breath. She has been participating in cardiac rehab and sometimes has this discomfort and sometimes she does not. She does state that this pain feels similar to episodes she had prior to havi ng her stent put in. REVIEW OF SYSTEMS: Negative except for pertinent items noted in HPI. Review of Systems Constitutional: Fatigue. HENT: Negative for nosebleeds. Eyes: Negative for visual disturbance. Respiratory: Shortness of breath. Cardiovascular: Chest pain. Gastrointestinal: Negative for nausea, vomiting, abdominal pain and blood in stool. Genitourinary: Negative for hematuria. Musculoskeletal: Negative for myalgias, back pain and arthralgias. Skin: Negative for color change. Neurological: Negative for dizziness, syncope and numbness. Hematological: Does not bruise/bleed easily. Psychiatric/Behavioral: The patient is not nervous/anxious. PHYSICAL EXAM: BP 110/60 | Pulse 92 | Resp 24 | Ht 1.638 m (5' 4.5") | Wt 63.05 kg (139 lb) | BMI 23.5 kg/ m2 | SpO2 96% Constitutional: Well-developed. Neck: No JVD present. No [...] tests: Lab Results Component Value Date WBC 7.6 12/25/2013 RBC 4.14 12/25/2013 HGB 12.2 12/25/2013 HCT 37.9 12/25/2013 PLT 316 12/25/2013 Lab Results Component Value Date NA 138 12/25/2013 K 3.4* 12/25/2013 CL 108 12/25/2013 CO2 23 12/25/2013 ANIONGAP 10 12/25/2013 GLUF 106* 12/25/2013 BUN 16 12/25/2013 CREATININE 0.57 12/25/2013 BCR 28 12/25/2013 CA 8.5 12/25/2013 EGFR >60 12/25/2013 Lab Results Component Value Date CHOL 166 12/16/2013 TRIGSCR 55 12/16/2013 LDLCALC 97 12/16/2013 GLUF 106* 12/25/2013 Lab Results Component Value Date BNP 62.4 12/15/2013 CKTOTAL 36 12/25/2013 TSH 2.09 12/16/2013 No results found for this basename: METF, NMETFX, TFNMFX, [id number], XMDQAR47KEG, TOTEPI EKG: December 25, 2013 - Reviewed personally, showed sinus rhythm with nonspecific ST-T wave ch anges. Last Echo: December 16, 2013 - Showed EF 60% to 65%, mild mitral regurgitation, [id number] pulm onary hypertension. Last stress test: Last cath: December 16, 2013 - Showed successful angioplasty for the right coronary artery with 2 non -overlapping drug-eluting stents in the right atrioventricular groove, Promus Premier 2.25 x 12 mm in the distal RCA and Promus Premier 2.25 x 16 mm. Carotid US: AAA screening: Lower extremity US: OTHERS: Assessment/Plan ASSESSMENT & PLAN: Ms. Brasher is a 73-year-old female with the follow medical problems: 1. Chronic obstructive pulmonary disease. 2. Non-Hodgkin lymphoma in remission status post chemotherapy. 3. Palpitations status post loop recorder implantation, [employer] Reveal. 4. Previous history of tobacco use, quit in 1989. Smoked for 40 years, 4 packs per day. The patient presents today for followup with concerns of new onset chest discomfort. We did discuss the results of her left heart catheterization and in light of her recent symptoms w ithin a short time span after her angioplasty I do recommend proceeding with left heart cath eterization for evaluation of underlying ischemia. The patient has agreed and consent was ob tained. I did advise the patient that she can go down to 81 mg aspirin indefinitely and continue wi th the Plavix. Her blood pressure shows good control on her current medications. She will follow up with us after left heart catheterization. Patient was seen and examined by Dr. Kimble and plan was discussed and agreed upon. The following portions of the patient's history were reviewed and updated as appropriate: Allergies, current medications. Family history, past medical history, past social history, past surgical history. Problem list. Cristal Coughlin PA-C 02/16/2014 documente d in this encounter Plan of Treatment Not on filedocumented as of this encounter Procedures + +--------+ + + + | Procedure Name | Priori | Date/Time | Associated Diagnosis | Comments | | | ty | | | | + +--------+ + + + | ECG 12 LEAD | Routin | 02/25/2014 | | Results for this | | | e | 5:57 AM | | procedure are in the | | | | PST | | results section. | + +--------+ + + + | ECG 12 LEAD | Routin | 02/24/2014 | | Results for this | | | e | 2:52 PM | | procedure are in the | | | | PST | | results section. | + +--------+ + + + | ACTIVATED CLOTTING | Routin | 02/24/2014 | | Results for this | | TIME | e | 1:42 PM | | procedure are in the | | | | PST | | results section. | + +--------+ + + + | EXTERNAL LAB: CBC | Routin | 02/24/2014 | | Results for this | | | e | 10:49 AM | | procedure are in the | | | | PST | | results section. | + +--------+ + + + | BASIC METABOLIC | Routin | 02/24/2014 | | Results for this | | PANEL | e | 10:49 AM | | procedure are in the | | | | PST | | results section. | + +--------+ + + + documented in this encounter Results ECG 12 lead (02/25/2014 5:57 AM PST) + + + + + + | Component | Value | Ref Range | Performed | Pathologist | | | | | At | Signature | + + + + + + | DIAGNOSIS: | Normal sinus rhythmT | | EXTERNAL | | | | wave abnormality, | | LAB | | | | consider inferior | | | | | | ischemiaAbnormal ECGWhen | | | | | | compared with ECG of | | | | | | 24-FEB-2014 14:52,No | | | | | | significant change was | | | | | | foundConfirmed by | | | | | | ISAIAS KIMBLE ([id number]) on | | | | | | 02/27/2014 9:52:28 PM | | | | + + + + + + + + | Specimen | + + | | + + + + + | Narrative | Performed At | + + + | Historically converted procedure from [facility] Epic environment | EXTERNAL LAB | + + + + +---------+ + + | Performing | Address | City/State/Zipcode | Phone Number | | Organization | | | | + +---------+ + + | EXTERNAL LAB | | | | + +---------+ + + ECG 12 lead (02/24/2014 2:52 PM PST) + + + + + + | Component | Value | Ref Range | Performed | Pathologist | | | | | At | Signature | + + + + + + | DIAGNOSIS: | Normal sinus rhythmT | | EXTERNAL | | | | wave abnormality, | | LAB | | | | consider inferior | | | | | | ischemiaAbnormal ECGWhen | | | | | | compared with ECG of | | | | | | 25-DEC-2013 | | | | | | 05:58,Nonspecific T wave | | | | | | abnormality no longer | | | | | | evident in Lateral | | | | | | leadsConfirmed by | | | | | | ISAIAS KIMBLE ([id number]) on | | | | | | 02/27/2014 9:47:30 PM | | | | + + + + + + + + | Specimen | + + | | + + + + + | Narrative | Performed At | + + + | Historically converted procedure from [facility] Epic environment | EXTERNAL LAB | + + + + +---------+ + + | Performing | Address | City/State/Zipcode | Phone Number | | Organization | | | | + +---------+ + + | EXTERNAL LAB | | | | + +---------+ + + Activated clotting time (02/24/2014 1:42 PM PST) + + + + + + | Component | Value | Ref Range | Performed | Pathologist | | | | | At | Signature | + + + + + + | Activated | 212 (H)Comment: Testing | 74 - 137 | EXTERNAL | | | Clotting | performed at [facility];888 | seconds | LAB | | | time, POC | [address];[place] | | | | | | [address] | | | | + + + + + + + + | Specimen | + + | | + + + +---------+ + + | Performing | Address | City/State/Zipcode | Phone Number | | Organization | | | | + +---------+ + + | EXTERNAL LAB | | | | + +---------+ + + External Lab: CBC (02/24/2014 10:49 AM PST) + + + + + + | Component | Value | Ref Range | Performed | Pathologist | | | | | At | Signature | + + + + + + | WBC | 8.6Comment: Testing | 3.8 - 11.0 K/uL | EXTERNAL | | | | performed at [facility];[address] | | LAB | | | | [address];[place], [place] | | | | | | [address] | | | | + + + + + + | Non- | 4.66Comment: Testing | 3.70 - 5.10 | EXTERNAL | | | Red Blood | performed at [facility];888 | M/uL | LAB | | | Cells | [address];[place] | | | | | Counted | [id number] | | | | + + + + + + | Hemoglobin | 13.6Comment: Testing | 11.3 - 15.5 | EXTERNAL | | | | performed at [facility];888 | g/dL | LAB | | | | [address];[place] | | | | | | [address] | | | | + + + + + + | Hematocrit, | 42.0Comment: Testing | 34.0 - 46.0 % | EXTERNAL | | | POC | performed at [facility];[address] | | LAB | | | | [address];[place] | | | | | | [address] | | | | + + + + + + | MCV | 90.1Comment: Testing | 80.0 - 100.0 fl | EXTERNAL | | | | performed at [facility];[address] | | LAB | | | | [address];[place] | | | | | | [address] | | | | + + + + + + | MCH | 29.2Comment: Testing | 27.0 - 34.0 pg | EXTERNAL | | | | performed at [facility];[address] | | LAB | | | | [address];[place] | | | | | | [address] | | | | + + + + + + | MCHC | 32.4Comment: Testing | 32.0 - 35.5 | EXTERNAL | | | | performed at [facility];888 | g/dL | LAB | | | | [address];[place] | | | | | | [address] | | | | + + + + + + | RDW-CV | 45.1Comment: Testing | 37 - 53 fl | EXTERNAL | | | | performed at [facility];[address] | | LAB | | | | [address];[place] | | | | | | [address] | | | | + + + + + + | Platelet | 311Comment: Testing | 150 - 400 K/uL | EXTERNAL | | | Count | performed at [facility];[address] | | LAB | | | Plasma | [address];[place] | | | | | | [address] | | | | + + + + + + | MPV | 8.6Comment: Testing | fl | EXTERNAL | | | | performed at [facility];[address] | | LAB | | | | [address];[place] | | | | | | [address] | | | | + + + + + + | Differentia | AUTOMATEDComment: | | EXTERNAL | | | l Type | Testing performed at | | LAB | | | | [facility];[address];[place] [address] | | | | + + + + + + | % Segmented | 43.4Comment: Testing | % | EXTERNAL | | | | performed at [facility];[address] | | LAB | | | Neutrophils | [address];[place] | | | | | | [address] | | | | + + + + + + | % | 43.3Comment: Testing | % | EXTERNAL | | | Lymphocytes | performed at [facility];[address] | | LAB | | | | [address];[place] | | | | | | [address] | | | | + + + + + + | % Monocytes | 9.6Comment: Testing | % | EXTERNAL | | | | performed at [facility];[address] | | LAB | | | | [address];[place] | | | | | | [address] | | | | + + + + + + | % | 2.5Comment: Testing | % | EXTERNAL | | | Eosinophils | performed at [facility];[address] | | LAB | | | | [address];[place] | | | | | | [address] | | | | + + + + + + | % Basophils | 1.2Comment: Testing | % | EXTERNAL | | | | performed at [facility];[address] | | LAB | | | | [address];[place] | | | | | | [address] | | | | + + + + + + | Absolute | 3.7Comment: Testing | 1.9 - 7.4 K/uL | EXTERNAL | | | Segmented | performed at [facility];[address] | | LAB | | | Neutrophils | [address];[place] | | | | | | [address] | | | | + + + + + + | Absolute | 3.7Comment: Testing | 1.0 - 3.9 K/uL | EXTERNAL | | | Lymphocytes | performed at [facility];[address] | | LAB | | | | [address];[place] | | | | | | [address] | | | | + + + + + + | Absolute | 0.8Comment: Testing | 0 - 0.8 K/uL | EXTERNAL | | | Monocytes | performed at [facility];[address] | | LAB | | | | [address];[place] | | | | | | [address] | | | | + + + + + + | Absolute | 0.2Comment: Testing | 0 - 0.5 K/uL | EXTERNAL | | | Eosinophils | performed at [facility];[address] | | LAB | | | | [address];[place] | | | | | | [address] | | | | + + + + + + | Absolute | 0.1Comment: Testing | 0 - 0.1 K/uL | EXTERNAL | | | Basophils | performed at [facility];[address] | | LAB | | | | [address];[place] | | | | | | [address] | | | | + + + [...] + +---------+ + + Basic Metabolic Panel (02/24/2014 10:49 AM PST) + + + + + + | Component | Value | Ref Range | Performed | Pathologist | | | | | At | Signature | + + + + + + | Na | 142Comment: Testing | 135 - 143 | EXTERNAL | | | | performed at [facility];888 | mmol/L | LAB | | | | [address];[place] | | | | | | [address] | | | | + + + + + + | K | 4.1Comment: Testing | 3.5 - 4.9 | EXTERNAL | | | | performed at [facility];888 | mmol/L | LAB | | | | [address];[place] | | | | | | [address] | | | | + + + + + + | Cl | 110 (H)Comment: Testing | 99 - 109 mmol/L | EXTERNAL | | | | performed at [facility];[address] | | LAB | | | | [address];[place] | | | | | | [address] | | | | + + + + + + | CO2 | 27Comment: Testing | 23 - 32 mmol/L | EXTERNAL | | | | performed at [facility];[address] | | LAB | | | | [address];[place] | | | | | | [address] | | | | + + + + + + | Anion Gap | 9Comment: Testing | 5 - 20 mmol/L | EXTERNAL | | | | performed at [facility];[address] | | LAB | | | | [address];[place] | | | | | | [address] | | | | + + + + + + | Glucose, | 107 (H)Comment: Testing | 65 - 99 mg/dL | EXTERNAL | | | Fasting | performed at [facility];[address] | | LAB | | | | [address];[place] | | | | | | [address] | | | | + + + + + + | BUN | 21Comment: Testing | 8 - 25 mg/dL | EXTERNAL | | | | performed at [facility];[address] | | LAB | | | | [address];[place] | | | | | | [address] | | | | + + + + + + | Creatinine | 0.84Comment: Testing | 0.50 - 1.00 | EXTERNAL | | | | performed at [facility];[address] | mg/dL | LAB | | | | [address];[place] | | | | | | [address] | | | | + + + + + + | BUN/Creatin | 25Comment: Testing | | EXTERNAL | | | ine Ratio | performed at [facility];[address] | | LAB | | | | [address];[place] | | | | | | [address] | | | | + + + + + + | Calcium | 9.2Comment: Testing | 8.5 - 10.2 | EXTERNAL | | | | performed at [facility];[address] | mg/dL | LAB | | | | [address];[place] | | | | | | [address] | | | | + + + [...] | | | | | | at [facility];[address] [place] [address] | | | | | | [facility];[place] [address] | | | | + + + [...]
--- OUTSIDE RECORDS SUMMARY | ~2019-12-11 | XMS | Encounter Summary ---
Demographics + + + | Address | [address] | | | [place] [address] | + + + | Home Phone [...] Author + + + | Author | [facility] | | | and [place] | + + + | Organization | [facility] | | [...] Team Providers + +------+ + | Care Net Sql Developer Name | Role | Phone | + +------+ + | David Arias MD | PCP | | + +------+ + Reason for Visit +--------+--------+ + | Reason | Onset | Comments | | | Date | | +--------+--------+ + | Other | 06/29/ | IC intake | | | 2013 | | +--------+--------+ + Encounter Details +--------+ + + + + | Date | Type | Department | Care Team | Description | +--------+ + + + + | 06/29/ | Telephone | [facility] | Pooja Owens, | Other (IC intake) | | 2013 | | [facility] [address] | | | | | [place], | [place], | | | | | [place] [address] | [place] [address] | | | | | [phone] | [phone] | | | | | | | [...] this encounter Miscellaneous Notes Telephone Encounter - Eve Lynne Master of Arts - 06/29/2013 2:30 PM Grace patelca mary on patients home phone to call back for an annual intake, prior to her appointment on Carol rsday 07/01/2013 P M PDTdocumented in this encounter Plan of Treatment Not on filedocumented as of this encounter Visit Diagnoses Not on filedocumented in this encounter"
--- OUTSIDE RECORDS SUMMARY | ~2019-12-11 | XMS | Encounter Summary ---
Demographics + + + | Address | [address] | | | [place] [address] | + + + | Home Phone | | + + + | Preferred Language | Unknown | + + + | Marital Status | Single | + + + | Jainism Affiliation | OTH | + + + | Race | White | + + + | Ethnic Group | Not or | + + + Author + + + | Author | [facility] | + + + | Organization | [facility] | + + + | Address | Unknown | + + + | Phone | Unavailable | + + + Support + + +---------+ + | Name | Relationship | Address | Phone | + + +---------+ + | Osorio Bourgeois | ECON | Unknown | Unavailable | + + +---------+ + Care Team Providers + +------+ + | Care Cna Per Diem Name | Role | Phone | + +------+ + | David Arias MD | PCP | | + +------+ + Reason for Visit + +--------+ + | Reason | Onset | Comments | | | Date | | + +--------+ + | Discussion | 11/19/ | Pt does not feel well after sx 10/13 w/ TLS, and would | | | 2012 | like recommendations for who she could follow up with | | | | locally, pt lives in [place]. | + +--------+ + Encounter Details +--------+ + + + + | Date | Type | Department | Care Team | Description | +--------+ + + + + | 11/19/ | Telephone | [facility] | Oleksandr Haddad, | Discussion (Pt does | | 2011 | | [facility] [address] | [address] | not feel well after | | | | [address] | [place], [place] | sx 10/13 w/ TLS, and | | | | for Health and | [address] | would like | | | | [place] [address], | [phone] | recommendations for | | | | [facility] | | who she could follow | | | | [place], [place] | | up with locally, pt | | | | [address] | | lives in [place]. | | | | [phone] | | ) | +--------+ + + + + Social [...] this encounter Miscellaneous Notes Telephone Encounter - Verona Alaniz PA-C - 11/20/2011 11:54 AM PDTI spoke with the cesar ent today. She is experiencing headaches, left eye pain, frontal pressure and maxillary pres sure. She had surgery with Dr. Haddad 10/2008. She was recently seen locally by Dr. 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 She is looking for guidance from our clinic. I have requested they send a copy of the CT to our clinic for review. We will contact her once we review the CT. elePaola Lee - 11/20/2011 11:11 AM PDTPt does not feel well after sx 10/13 w/ TLS, and would like recommendations for who she could follow up with locally, pt lives in [place]. Pt was not able to come in for postops and now has excess scar tissue and is having bad hea daches. Pt cannot afford to come back here and see our sinus team. Pls call to advise documente d in this encounter Plan of Treatment Not on filedocumented as of this encounter Visit Diagnoses Not on filedocumented in this encounter"
--- OUTSIDE RECORDS SUMMARY | ~2019-12-11 | XMS | Encounter Summary ---
Demographics + + + | Address | [address] | | | [place] [address] | + + + | Home Phone [...] Phone | + + +---------+ + | sOorio Webster | ECON | Unknown | | + + +---------+ + | Toñito Hernandez | ECON | Unknown | | + + +---------+ + Care Team Providers + +------+ + | Care Audio Visual Production Specialist Name | Role | Phone | + +------+ + | David Arias MD | PCP | | + +------+ + Reason for Visit +--------+--------+ + | Reason | Onset | Comments | | | Date | | +--------+--------+ + | Other | 09/30/ | | | | 2016 | | +--------+--------+ + Encounter Details +--------+ + + + + | Date | Type | Department | Care Team | Description | +--------+ + + + + | 09/30/ | Telephone | [facility] | Oracio Albert | Other | | 2016 | | SLEEP DISORDER [address] | MD Let[address]ia [address] | | | | | [address] [place] | [address] [place] | | | | | [place] [address] | [place] [address] | | | | | [phone] | [phone] | | | | | | | [...] this encounter Miscellaneous Notes Telephone Encounter - Farzaneh Argueta - 09/30/2016 9:46 AM PDTPER PATIENT SHE DOES NOT W ANT SLEEP STUDY AND SHE HAS CANCELLED HER PHONE APPOINTMENT WITH .Electronically sig gigi by Farzaneh Argueta at 09/30/2016 9:46 AM PDTdocumented in this encounter Plan of Treatment Not on filedocumented as of this encounter Visit Diagnoses Not on filedocumented in this encounter"
--- OUTSIDE RECORDS SUMMARY | ~2019-12-11 | XMS | Encounter Summary ---
Demographics + + + | Address | [address] | | | [place] [address] | + + + | Home Phone [...] Author + + + | Author | [facility] | | | and [place] | + + + | Organization | [facility] | | [...] Providers + +------+ + | Care Tile Layer Name | Role | Phone | + +------+ + | David Arias MD | PCP | | + +------+ + Reason for Visit +---------+--------+ + | Reason | Onset | Comments | | | Date | | +---------+--------+ + | Results | 03/17/ | | | | 2019 | | +---------+--------+ + Encounter Details +--------+ + + + + | Date | Type | Department | Care Team | Description | +--------+ + + + + | 03/17/ | Telephone | [facility] [place] | Oleksandr Hyde, | Results | | 2019 | | PULMONARY [address] | MD [address] | | | | | [place], | [place] | | | | | [place] [address] | [address] | | | | | [phone] | | | +--------+ + + + [...] Encounter - Jennyfer Galan RN - 03/18/2019 9:11 AM PSTReceived lab results. S ee result note for more details. Patient notified. Routed to PCP. elephone Encounter - Jennyfer Galan RN - 4:[address] Hyde most of the labs that were drawn tod ay are negative for anything regarding her heart. He recommends patient to follow-up with PC P within the next few weeks regarding her fatigue. We are still awaiting results for BNP, BM P and CBC. Called and notified patient. Unable to reach personnel in lab regarding BNP, BMP and CBC re sults. Will continue to call. 4: 23 PM PSTdocumented in this encounter Plan of Treatment Not on filedocumented as of this encounter Visit Diagnoses Not on filedocumented in this encounter"
--- OUTSIDE RECORDS SUMMARY | ~2019-12-11 | XMS | Encounter Summary ---
Demographics + + + | Address | [address] | | | [place] [address] | + + + | Home Phone | | + + + | Preferred Language | Unknown | + + + | Marital Status | Single | + + + | Roman Catholic Affiliation | Unknown | + + [...] Team Providers + +------+ + | Care Efficiency Manager Name | Role | Phone | + +------+ + | David Arias MD | PCP | | + +------+ + Reason for Visit +---------+ + | Reason | Comments | +---------+ + | Consult | | +---------+ + Encounter Details +--------+---------+ + + + | Date | Type | Department | Care Team | Description | +--------+---------+ + + + | 06/16/ | Office | [facility] [place] | Oleksandr Hyde, | Hypoxemia (Primary | | 2012 | Visit | PULMONARY [address] | MD [address] | Dx); COPD (chronic | | | | [place], | [place], [place] | obstructive | | | | [place] [address] | [id number] | pulmonary disease) | | | | [phone] | | (HCC) | +--------+---------+ + + + Social [...] Comments | + + +---------+ + | Not Asked | | | | + + +---------+ [...] + + + | Blood Pressure | 110/64 | 06/16/2012 9:47 AM | | | | | PDT | | + + + + + | Pulse | 89 | 06/16/2012 9:47 AM | | | | | PDT | | + + + + + | Temperature | - | - | | + + + + + | Respiratory Rate | 16 | 06/16/2012 9:47 AM | | | | | PDT | | + + + + + | Oxygen Saturation | 97% | 06/16/2012 9:47 AM | | | | | PDT | | + + + + + | Inhaled Oxygen | - | - | | | Concentration | | | | + + + + + | Weight | 71.5 kg (157 lb 11.2 | 06/16/2012 9:47 AM | | | | oz) | PDT | | + + + + + | Height | 164.5 cm (5' 4.75") | 06/16/2012 9:47 AM | | | | | PDT | | + + + + + | Body Mass Index | 26.45 | 06/16/2012 9:47 AM | | | | | PDT | | + + + + + documented in this encounter Patient Instructions Patient Instructions Oleksandr Hyde MD - 06/16/2012 10:25 AM PDTRestart Advair. More liberal use of Combivent. Regular scheduled exercise. Walking. documented in this encounter Progress Notes Oleksandr Hyde MD - 06/16/2012 10:05 AM PDTFormatting of this note might be different f rom the original. Pulmonary Follow Up HPI Priscila Brasher is a 71 y.o. female patient of David Arias here today for follow u p of COPD. Last visit was in 10/25/11. Since their last visit she feels like she has been doing worse . Stopped Spiriva ~ 5 months ago secondary to cost. Resulting more SOB. They have not had any acute illnesses. They are currently on a regimen of Combient. They d o feel like this medication regimen is working for them. They return today for routine follo w up. Currently they are using their rescue inhaler, Combivent, 2 times a day. Currently they are able to walk 300 feet at their own pace on level ground. They are exerci sing regularly mildly. Walks up stairs and lifts light weights. They are not enrolled in pr rdiac/pulmonary rehabilitation or other physical therapy. They have not completed pulmonary rehabilitation in the past. She does not cough chronically, and does not produce mucous.They have not had hemoptysis. She has been evaluated for nocturnal oxygen and does use it. They are currently on 2 LPM at night. They report good compliance. They have been evaluated for daytime oxygen and do not use it. She does not had symptoms of heartburn or reflux. They have not had symptoms of nasal conge stion, runny nose or post nasal drip. Past Medical History Past Medical History Diagnosis Date Pulmonary embolus 2009 after surgery Reflux Non Hodgkin's lymphoma 2008 no recurrence, seen by Dr. Gonzalez annually Arthritis Fatigue Hiatal hernia Sleep apnea No CPAP. O2 at night. [place] (dyspnea on exertion) Pneumonia last episode 1990 Emphysema Normal FEV1 and extensive on CT scan Hypoxemia Social History: She reports that she has quit smoking. Her smoking use included Cigarettes. She has a 180 p ack-year smoking history. She does not have any smokeless tobacco history on file. Allergies: Allergies Allergen Reactions Codeine Sulfate Penicillins Tetanus Toxoids Medications: Current outpatient prescriptions:SUMAtriptan (IMITREX) 100 mg tablet, Take 100 mg by mouth as needed., Disp: , Rfl: ; diclofenac (CATAFLAM) 50 MG tablet, Take 75 mg by mouth 3 times daily., Disp: , Rfl: ; misoprostol (CYTOTEC) 200 MCG tablet, Take 200 mcg by mouth 4 times daily., Disp: , Rfl: ; amitriptyline (ELAVIL) 25 mg tablet, Take 25 mg by mouth nightly., D isp: , Rfl: metoclopramide (REGLAN) 10 mg tablet, Take 10 mg by mouth 4 times daily (before meals and n ightly)., Disp: , Rfl: ; dexamethasone (DECADRON) 2 MG tablet, Take 2 mg by mouth 2 times d aily (with breakfast & dinner)., Disp: , Rfl: ; naproxen (NAPROSYN) 500 mg tablet, Take 500 mg by mouth 2 times daily (with breakfast & dinner)., Disp: , Rfl: fluticasone (FLOVENT DISKUS) 50 MCG/BLIST diskus inhaler, Inhale 1 puff into the lungs 2 ti mes daily., Disp: , Rfl: ; albuterol-ipratropium (DUONEB) 2.5-0.5 mg/3 mL SOLN, Take 3 mLs by nebulization., Disp: , Rfl: ; Fluticasone Propionate (FLONASE NA), once daily, Disp: , R fl: ; Multiple Vitamins-Minerals (CENTRUM) TABS, 1 tablet by mouth daily., Disp: , Rfl: diclofenac-misoprostol (ARTHROTEC 75) 75-0.2 mg per tablet, Take by mouth 2 times daily., Disp: , Rfl: ; Tiotropium [place] Monohydrate (SPIRIVA HANDIHALER IN), Inhale into the alejandro gs., Disp: , Rfl: Review of Systems Constitutional: [...] urticaria, allergic rash, hay fever. Objective BP 110/64 | Pulse 89 | Resp 16 | Ht 1.645 m (5' 4.75") | Wt 71.532 kg (157 lb 11.2 oz) | BM I 26.45 kg/m2 | SpO2 97% Appearance: Alert, cooperative, no distress, appears stated age Head: Normocephalic, without obvious abnormality, atraumatic Eyes: PERRL, conjunctiva/corneas clear Nose: Nares normal, septum midline, mucosa normal, no drainage or sinus tenderness Throat: Lips, mucosa, and tongue normal, dentures normal. MP 3 Neck: Supple, symmetrical, no JVD Lungs: No accessory muscle use, breath sounds are reduced to auscultation bilaterally, no wheezes, crackles or rhonchi. No dullness to percussion. Chest Wall: No tenderness or deformity Heart: Regular rate and rhythm, S1, S2 normal, no murmur, rub or gallop Extremities: Extremities normal, atraumatic, no cyanosis, clubbing, or edema Skin: Warm and dry Lymph nodes: Cervical and supraclavicular nodes normal Neurologic: Gait normal . Assessment 1. Worsening dyspnea-Priscila is a 71-year-old female with advanced emphysema based on CT s can of the chest. Of note the patient's FEV1 is not significantly abnormal. Approximately 5 months ago Priscila discontinued Spiriva secondary to cost. She subsequentl y noted worsening shortness of breath. 2. Hypoxemia -The patient is wearing supplemental oxygen at night while she sleeps. Didi johnson is known to desaturated with exertion but has not been interested in supplemental oxygen in this setting. Apparently Advair is less expensive than Spiriva for this patient's insurance. Given this fact we will reinstitute Advair. I also discussed more liberal use of Combivent. Other mor e economic options would include low-dose prednisone. Plan 1. Advair 250/50 one inhalation twice daily. 2. Combivent 2 puffs every 4 hours when necessary shortness of breath. 3. [place] regular scheduled exercise. 4. Pulmicort followup appointment to assess the status of the patient symptoms in 6 weeks time. CC: David Francoon documented in this encounter Plan of Treatment Not on filedocumented as of this encounter Visit Diagnoses + + | Diagnosis | + + | Hypoxemia - Primary | + + | COPD (chronic obstructive pulmonary disease) (HCC) Chronic airway obstruction, not | | elsewhere classified | + + documented in this encounter
--- OUTSIDE RECORDS SUMMARY | ~2019-12-11 | XMS | Encounter Summary ---
Demographics + + + | Address | [address] | | | [place] [address] | + + + | Home Phone | | + + + | Preferred Language | Unknown | + + + | Marital Status | Single | + + + | Taoism Affiliation | Unknown | + + + | Race | White | + + + | Ethnic Group | Not or | + + + Author + + + | Author | [facility] | | | and [place] | + + + | Organization | [facility] | | | [...] Team Providers + +------+ + | Care Ground Hand Name | Role | Phone | + +------+ + | David Arias MD | PCP | | + +------+ + Reason for Visit +--------+ + | Reason | Comments | +--------+ + | COPD | 6 month follow up | +--------+ + Encounter Details +--------+---------+ + + + | Date | Type | Department | Care Team | Description | +--------+---------+ + + + | 03/09/ | Office | [facility] | Oleksandr Hyde, | Centrilobular | | 2015 | Visit | PULMONARY [address] | MD [address] | emphysema (HCC) | | | | [place], | [place] | (Primary Dx); | | | | [place] [address] | [id number] | Hypoxemia | | | | [phone] | | | +--------+---------+ + + + [...] | Tobacco Cessation: Counseling Given: No | | Comments: quit in 1989 | + [...] + + + | Blood Pressure | 94/60 | 03/09/2015 10:19 AM | | | | | PST | | + + + + + | Pulse | 86 | 03/09/2015 10:19 AM | | | | | PST | | + + + + + | Temperature | - | - | | + + + + + | Respiratory Rate | - | - | | + + + + + | Oxygen Saturation | 97% | 03/09/2015 10:19 AM | | | | | PST | | + + + + + | Inhaled Oxygen | - | - | | | Concentration | | | | + + + + + | Weight | 64.9 kg (143 lb) | 03/09/2015 10:19 AM | | | | | PST | | + + + + + | Height | 162.6 cm (5' 4") | 03/09/2015 10:19 AM | | | | | PST | | + + + + + | Body Mass Index | 24.55 | 03/09/2015 10:19 AM | | | | | PST | | + + + + + documented in this encounter Patient Instructions Patient Instructions Oleksandr Hyde MD - 03/09/2015 10:46 AM PSTUsing Oxygen at Home Your doctor has prescribed oxygen to help make breathing easier for you. You will be shown how to use your oxygen unit. Below are some guidelines on using oxygen at home safely. Do al l steps each time you use your oxygen unit. Note: Instructions will vary based on the type of oxygen device you use. Step 1. Check your supply Pressurize your oxygen tank (compressed oxygen tanks only). Other devices may simply be switched on. Make sure you follow the instructions provided by your doctor or medical equipm ent company. Check the oxygen supply level on the tank to be sure you have enough. Your medical suppl y company will tell you when to call them to let them know that you need more oxygen. Or the y will deliver your oxygen on a regular schedule. If you have a humidifier bottle, check the water level. When it is at or below 1/2 full, refill it with sterile or distilled water. Step 2. Attach the tubing Attach the cannula tubing (long oxygen tubing) to your oxygen source as you have been sh own. Be sure the tubing is not bent or blocked. Step 3. Set your prescribed flow rate Set the oxygen to flow at the rate your doctor has prescribed. This is . Never change this rate unless told to by your doctor. Step 4. Insert the cannula Insert the nasal cannula into your nose and breathe through your nose normally. If you re not sure whether oxygen is flowing, place the nasal cannula in a glass of wa ter. Bubbles mean that oxygen is flowing. Follow safety guidelines when using oxygen in your home Avoid open flames. This includes cigarettes, matches, candles, fireplaces, gas burners, pipes, or anything else that could start a fire. Don't smoke or be around others who are smoking. Keep oxygen tanks at least 5 feet from gas stoves, space heaters, electric or gas heater s, or any heat sources. Don't use lotions or creams that contain petroleum jelly. This substance can be flammabl e when mixed with pure oxygen. Turn oxygen off when you aren't using it. Store the oxygen cylinder upright in a secure, approved storage device. Make sure you know what to do in an emergency. Your emergency numbers should include 911 (or your area's emergency number), your health care provider, and your medical supply [place]. Always follow the instructions for safe use as recommended by your medical supply compan y. Maintain your equipment Ask your medical supply company how often you should change your nasalcannula tubing, you r cannula, and your humidifier bottle, if you have one. 3861-1446 [employer]. [address] [place] [address]. All righ ts reserved. This information is not intended as a substitute for professional medical care. Always follow your healthcare professional's instructions. documented in this encounter Progress Notes Oleksandr Hyde MD - 03/09/2015 10:34 AM PSTFormatting of this note might be different f rom the original. Pulmonary Follow Up 03/09/2015 HPI Priscila Brasher is a 74 y.o. female patient of David Arias MD here today for foll ow up of probable COPD. The last pulmonary clinic visit was on 08/1514. Since their last appointment they feel like their breathing issues have been stable. They have had any acute pulmonary illnesses. The p atient has not required a prednisone taper since our last clinic appointment. Likewise Michael Brasher has not required antibiotics for a COPD exacerbation since our last clinic ap pointment. Recently treated for prolonged sinusitis with antibiotics and prednisone. They are currently on a daily regimen of prn Duoneb for their COPD. They do feel like this medication regimen is controlling their symptoms. They are using their Duoneb nebulizer, 3 times a day. Currently the patient is able to walk 50-60 feet at their own pace on level ground before d eveloping dyspnea. They are not exercising regularly. They are not enrolled in cardiac/pulm onary rehabilitation. They have not completed pulmonary rehabilitation in the past. The patient does cough chronically, and does produce mucous. Attributes to sinusitis. The geraldo rosas is yellow in color. They have not had hemoptysis since our last appointment. She has been evaluated for nocturnal oxygen. They currently are using nocturnal oxygen. Petra smith are currently on 2 LPM at night while sleeping. They have not reported recent symptoms of nasal congestion, runny nose or post nasal drip. The patient have received this year's influenza vaccination. They are up to date with thei r Pneumovax and Prevnar 13. No history chest pain. The patient had a myocardial infarction apparently in December. Past Medical History Past Medical History Diagnosis [...] mL, Rfl: 11; amitriptyline (ELAVIL) 25 mg tablet, Take 25 mg by mouth nightly., Disp: , Rfl: ; Cholecalciferol (VITAMIN D3) 99768 UNI TS CAPS, Take 1 capsule by mouth Once a week. Every Friday, Disp: , Rfl: ; clopidogrel (PL AVIX) 75 mg tablet, Take 75 mg by mouth Daily., Disp: , Rfl: Cranberry-Vitamin C-Probiotic (AZO CRANBERRY PO), Take 2 [...] by mouth Daily., Disp: , Rfl: ; Fluticason e Propionate (FLONASE NA), once daily, Disp: , Rfl: metoclopramide (REGLAN) 10 mg tablet, Take 10 mg by mouth 4 times daily as needed., Disp: , Rfl: ; metoprolol succinate (TOPROL-XL) 25 mg 24 hr tablet, Take 1.5 tablets by mouth Willard ambrose., Disp: 45 tablet, Rfl: 6; misoprostol (CYTOTEC) 200 MCG tablet, Take 200 mcg by mouth Da jb., Disp: , Rfl: ; naproxen (NAPROSYN) 500 mg tablet, Take 500 mg by mouth Twice daily a s needed., Disp: , Rfl: nitroglycerin (NITROSTAT) 0.4 mg SL tablet, Place 0.4 mg under the tongue as needed for Aide st pain., Disp: , Rfl: ; oxygen, Inhale 2 L into the lungs nightly., Disp: , Rfl: ; SUMAtr iptan (IMITREX) 100 mg tablet, Take 100 mg by mouth as needed., Disp: , Rfl: ; topiramate ( TOPAMAX) 100 mg tablet, Take 100 mg by [...] Denies urticaria and allergic rash. Objective BP 94/60 mmHg | Pulse 86 | Ht 1.626 m (5' 4") | Wt 64.864 kg (143 lb) | BMI 24.53 kg/m2 | S pO2 97% | ? No Appearance: Alert, cooperative, no [...] Neurologic: Gait normal. No apparent weakness. Data: Exertional oximetry: Walking 800 feet over 5.5 minutes. The patient desaturated to 83% wit h exertion. Supplemental oxygen at 2 L/m was needed to maintain an O2 saturation in the low to mid 90s. Assessment 1. COPD consistent with centrilobular emphysema. No prior pulmonary function tests per patient request. Related to expense Priscila is currently using DuoNeb solely for treatment of her COPD. Her current use of DuoNeb is approximately 3 times a day. No recent COPD exacerbations. The patient did apparently have an episode of persistent sin usitis. The patient is up-to-date with respect to her pertinent vaccinations. 2. Hypoxemia patient wears supplemental oxygen at 2 L/m night while she sleeps. Today t here was evidence of significant desaturation with exertion. Priscila is uncertain as to whether she is interested in wearing supplemental oxygen with ex ertion. She is asked for time to formulate a decision. Plan 1. Await patient decision regarding supplemental oxygen with exertion. If she decides to initiate oxygen with exertion the flow rate of 2 L/m will be prescribed. 2. Pulmonary clinic follow-up appointment in 6 months time. 3. Patient encouraged to perform regular schedule exercise. CC: David Arias MD documented in this [...]
--- OUTSIDE RECORDS SUMMARY | ~2019-12-11 | XMS | Encounter Summary ---
Demographics + + + | Address | [address] | | | [place] [address] | + + + | Home Phone | | + + + | Preferred Language | Unknown | + + + | Marital Status | Single | + + + | Orthodox Affiliation | OTH | + + + | Race | White | + + + | Ethnic Group | Not or | + + + Author + + + | Author | [facility] | + + + | Organization | [facility] | + + + | Address | Unknown | + + + | Phone | Unavailable | + + + Support + + +---------+ + | Name | Relationship | Address | Phone | + + +---------+ + | Osorio Bourgeois | ECON | Unknown | Unavailable | + + +---------+ + Care Team Providers + +------+ + | Care Line Construction Supervisor Name | Role | Phone | [...] | | | | | Procedures | [place], [place] | [facility], | | | | | [address] SINUS | [address] | [address] Floor | | | | | [place] | Phone: | [place], [place] | | | | | [address] | [phone] | [address] | | | | | | Fax: | Phone: | | | | | | [phone] | [phone] | | | | | | | Fax: | | | | | | | [phone] | +--------+--------+ + + + + Reason for Visit + + + | Reason | Comments | + + + | New Patient Visit | | + + + Office Visit - E/M Services (Routine) +--------+--------+ + + + + | Status | Reason | Specialty | Diagnoses / | Referred By | Referred To | | | | | Procedures | Contact | Contact | +--------+--------+ + + + + | Closed | | Otolaryngolog | Diagnoses | Anila, | Boo, | | | | y | Deviated | Jimmie Luo MD | Oleksandr Luo MD | | | | | nasal septum | Jennifer | [address] | | | | | Chronic | [facility] | [address] | | | | | frontal | [address] | [place], [place] | | | | | sinusitis | [address] | [address] | | | | | Chronic | [address], | Phone: | | | | | ethmoidal | [place] [address] | [phone] | | | | | sinusitis | Phone: | Fax: | | | | | | [phone] | [phone] | | | | | | Fax: | | | | | | | [phone] | | +--------+--------+ + + + + Encounter Details +--------+---------+ + + + | Date | Type | Department | Care Team | Description | +--------+---------+ + + + | 09/25/ | Office | [facility] | Oleksandr Haddad, | Chronic frontal | | 2011 | Visit | Center at [facility] [address] | MD [address] | sinusitis (Primary | | | | [facility] | [facility] [place] | Dx); Chronic | | | | for Health and | [address] | ethmoidal sinusitis | | | | Healing, [address], | [phone] | | | | | 5th Floor | | | | | | [place], [place] | | | | | | [address] | | | | | | [phone] | | | +--------+---------+ + + + [...] documented as of this encounter Progress Notes Oleksandr Haddad MD - 09/26/2011 11:09 AM PDTI have reviewed and verified the above scribe d note of my visit with this patient as recorded by ABHIJEET Leon. Oleksandr Haddad M.D., M.P.H., F.A.C.S. Director, [facility] Professor and Chief, Rhinology and Sinus Surgery Department of Otolaryngology/Head and Neck Surgery Verona Stokes PA -C - 09/26/2011 9:39 AM PDT I, VERONA LEMOS PA-C, am functioning as a scribe for Dr. Haddad. [facility] HPI: Priscila Brasher is a 71 y.o. female who presents to the [facility] in cons ultation for Chronic left frontal sinusitis. Current symptoms include headache, facial pain , facial pressure, fatigue, pain behind her left eye, nausea and vomiting. All symptoms are left sided. She denies nasal discharge or visual changes. Symptoms began many years ago. S ymptom severity is moderate to severe. She usually experiences about 2 incapacitating headac hes a week. Improvement occurred with oxycodone. Additional evaluation has included CT sca n sinuses. She has been treated with 3 weeks of Biaxin and prednisone with minimal relief. S ymptoms returned about 6 days after stopping medications. She has a history of migraines flynn t were usually treated with an injection of demerol and vicodin in the ED, her last migraine was about 30 years ago. She has not been seen by neurology. Pt uses O2 nightly for her COPD. Current Outpatient Prescriptions Medication Sig albuterol-ipratropium (COMBIVENT) 18-103 mcg/actuation Inhalation Aerosol, Hastings Inhale 2 Puffs four times daily as needed. DICLOFENAC SODIUM/MISOPROSTOL (ARTHROTEC 50 ORAL) Take by mouth. fluticasone (FLONASE) 50 mcg/actuation Nasal Hastings, Suspension Instill 2 Sprays into ea ch nostril once daily. FOLIC ACID/MV,FE,OTHER MIN (CENTRUM ORAL) Take by mouth. tiotropium (SPIRIVA WITH HANDIHALER) 18 mcg Inhalation Capsule, w/Inhalation Device Inh fito 18 mcg once daily. The patient's New Patient History Form was reviewed with the patient. Changes and addition s, where necessary, were made and the form was scanned to the medical record. Comprehensive review of systems was negative other than as documented on this note and on the New Patient History Form. Past Medical History Diagnosis Date COPD Unspecified essential hypertension Other malignant neoplasm without specification of site Arthritis Non Hodgkin's lymphoma Past Surgical History Procedure Date Tonsillectomy and adenoidectomy Appendectomy Hysterectomy Cholecystectomy Breast lumpectomy Left hip replacement Splenectomy Abdominal hernia repair Knee surgery bilateral arthroscopic surgery Family History Problem Relation Cancer History Substance Use Topics Smoking status: Former Smoker Quit date: 09/25/1989 Smokeless tobacco: Never Used Alcohol Use: No Allergies: Allergies Allergen Reactions Codeine Penicillins PHYSICAL EXAM: General Appearance: Pleasant, well-developed, well-nourished patient, in no apparent distre ss. Mental status normal. Breathing quietly, comfortably, no stridor or wheezing. Head/Face: No skin lesions, face symmetric, sensation normal Eyes: EOMI Ears: External ears normal to inspection and palpation, canals clear, TM's intact, no middl e ear effusion. Nose: Anterior rhinoscopy reveals mucosal edema. Nasal endoscopy was indicated to better ev aluate the nose and paranasal sinuses given the patient's history and exam findings and is d etailed below. Oral Cavity/Pharynx: No masses or lesions of lips, gums, tongue, floor of mouth, buccal muc ed, hard palate or soft palate. Dentition is good. No erythema, exudate, or tonsillar prince s. Posterior pharyngeal wall normal. Neck/Lymphatic: no masses or adenopathy Neurologic: CN 2-12 intact PROCEDURE: Diagnostic Nasal Endoscopy Anesthesia: Lidocaine 4% topical anesthetic was placed. Description of Procedure: A rigid endoscope was utilized to evaluate the sinonasal cavities , mucosa, sinus ostia and turbinates. Overall, signs of mucosal inflammation are noted. Al so noted are septal deviation. RADIOGRAPHIC EVALUATION: A current CT done at an outside facility was reviewed which reveal s overall well ventilated sinuses. The left frontal sinus is hypoplastic and opacified. The septum is deviated to the right. ASSESSMENT: Chronic left frontal sinusitis and septal deviation. Possible migraine/headach e disorder with sinus trigger. Discussed options including medical and surgical therapies. Discussed risks benefits and a lternatives at length. I have answered all questions. We've discussed issues and options today. The risks, benefits and alternatives were discus sed and questions answered. She has elected to proceed with endoscopic sinus surgery for e following indications: radiographic evidence of chronic sinusitis and return for follow up in 1 week(s) The role of nasal/sinus surgery was discussed including a possible left frontal trephinatio n. Risks including anesthetic, bleeding, infection, olfactory dysfunction, recurrence of sy mptoms, and injury to associated structures including the orbit and cranial cavity, among ot hers, were discussed and all questions answered. We've discussed the possible need for front al sinus trephination for access to the disease including the incision and potential scarrin g and additional associated risks. The need for postoperative care including debridement and ongoing medical management was discussed. After considering risks, benefits, and alternati ves, surgical management was elected. We have reviewed the sinus surgery teaching materials including the use of medications arou nd the time of surgery, avoidance of blood thinning agents, use of irrigation and other mary operative instructions. documented in this e ncounter Miscellaneous Notes Scan - Other, Faculty - 10/04/2011 9:19 AM PDTElectronically signed by Faculty Other at 9:19 AM PDTScan - Akanksha, Faculty - 09/26/2011 2:44 PM PDT documented in this encounter Plan of Treatment Not on filedocumented as of this encounter Procedures + +--------+ + + + | Procedure Name | Priori | Date/Time | Associated Diagnosis | Comments | | | ty | | | | + +--------+ + + + | [place] NASAL | Routin | 09/26/2011 | Chronic ethmoidal | | | ENDOSCOPY,DX | e | 11:11 AM | sinusitis Chronic | | | | | PDT | frontal sinusitis | | + +--------+ + + + [...] Final/Electronically | | | | | | jose / Sharla Gutiérrez | | | | [...] | | + +---------+ + + | [facility] DEPARTMENT OF | | | | | RADIOLOGY | | | | + +---------+ + + documented in this encounter Visit Diagnoses + + | Diagnosis | + + | Chronic frontal sinusitis - Primary | + + | Chronic ethmoidal sinusitis | + + documented in this encounter"
--- OUTSIDE RECORDS SUMMARY | ~2019-12-11 | XMS | Encounter Summary ---
Demographics + + + | Address | [address] | | | [place] [address] | + + + | Home Phone | | + + + | Preferred Language | Unknown | + + + | Marital Status | Single | + + + | Orthodoxy Affiliation | Unknown | + + + [...] Team Providers + +------+ + | Care Intelligence Applications Name | Role | Phone | + +------+ + | David Arias MD | PCP | | + +------+ + Reason for Visit + + + | Reason | Comments | + + + | Follow-up | | + + + Follow Up (Routine) + +--------+ + + + + | Status | Reason | Specialty | Diagnoses / | Referred By | Referred To | | | | | Procedures | Contact | Contact | + +--------+ + + + + | Authorized | | Pulmonary | Diagnoses | Hugo, | Barrett | | | | Disease / | | David Starr | MD Oleksandr | | | | Pulmonology | Centrilobula | [address] | | | | | r emphysema | [place] | [place], | | | | | ([facility]) | [address] | [place] [address] | | | | | Hypoxemia | [place], | Phone: | | | | | Procedures | [place] [address] | [phone] | | | | | F/U ARGENIS FERMIN | | Fax: | | | | | ANGELA GOMEZ | | [phone] | | | | | 03/25/19 | | | + +--------+ + + + + Encounter Details +--------+---------+ + + + | Date | Type | Department | Care Team | Description | +--------+---------+ + + + | 09/20/ | Office | [facility] | Oleksandr Hyde, | Chronic obstructive | | 2019 | Visit | PULMONARY [address] | pulmonary disease, | | | | [place], | [place], [place] | unspecified COPD | | | | [place] [address] | [id number] | type (HCC) (Primary | | | | [phone] | | Dx); Hypoxemia | +--------+---------+ + [...] Instructions Patient Instructions Oleksandr Hyde MD - 09/21/2019 10:30 AM PDTInterim Guidance for Pr eventing the Spread of Coronavirus Disease 2019 (COVID-19) in Homes and Residential Communit ies Update: June 12, 2019 (This guidance provides clarification regarding evaluation for home isolation and a new sec tion with information regarding preventative steps for household members, intimate partners, and caregivers in a nonhealthcare setting of a person with symptomatic, laboratory-confirme d COVID-19.) This interim guidance is based on what is currently known about the epidemiology of COVID-1 9 and the transmission of other viral respiratory diseases. CDC will update this interim henna dance as needed and as additional information becomes available. Coronaviruses are a large family of viruses, some causing illness in people and others that circulate among animals, including camels, cats, and bats. Rarely, animal coronaviruses can infect people exposed to infected animals, and then spread among people, as has been seen w ith MERS-CoV and SARS-CoV, and likely now with SARS-CoV-2, the virus that causes COVID-19. T his interim guidance may help prevent this virus from spreading among people in their homes and in other residential communities. Prevention steps for People with confirmed or suspected COVID-19 (including persons under investigation) who do not need to be hospitalized and People with confirmed COVID-19 who were hospitalized and determined to be medically stable to go home Your healthcare provider and public health staff will evaluate whether you can be cared for at home. If it is determined that you do not need to be hospitalized and can be isolated at home, you will be monitored by staff from your local or state health department. You should follow the prevention steps below until a healthcare provider or local or state health depa rtment says you can return to your normal activities. Stay home except to get medical care You should restrict activities outside your home, except for getting medical care. Do not g o to work, school, or public areas. Avoid using public transportation, ride-sharing, or taxi s. Separate yourself from other people and animals in your home People: As much as possible, you should stay in a specific room and away from other people in your home. Also, you should use a separate bathroom, if available. Animals: You should restrict contact with pets and other animals while you are sick with CO VID-19, just like you would around other people. Although there have not been reports of pet s or other animals becoming sick with COVID-19, it is still recommended that people sick wit h COVID-19 limit contact with animals until more information is known about the virus. When possible, have another member of your household care for your animals while you are sick. If you are sick with COVID-19, avoid contact with your pet, including petting, snuggling, bein g kissed or licked, and sharing food. If you must care for your pet or be around animals whi le you are sick, wash your hands before and after you interact with pets and wear a facemask . Call ahead before visiting your doctor If you have a medical appointment, call the healthcare provider and tell them that you have or may have COVID-19. This will help the healthcare provider s office take steps to keep other people from getting infected or exposed. Wear a facemask You should wear a facemask when you are around other people (e.g., sharing a room or vehicl e) or pets and before you enter a healthcare provider s office. If you are not able to wea r a facemask (for example, because it causes trouble breathing), then people who live with y ou should not stay in the same room with you, or they should wear a facemask if they enter y our room. Cover your coughs and sneezes Cover your mouth and nose with a tissue when you cough or sneeze. Throw used tissues in a l ined trash can; immediately wash your hands with soap and water for at least 20 seconds or c lean your hands with an alcohol-based hand developmental writing instructor that contains 60 to 95% alcohol, coveri ng all surfaces of your hands and rubbing them together until they feel dry. Soap and water should be used preferentially if hands are visibly dirty. Clean your hands often Wash your hands often with soap and water for at least 20 seconds or clean your hands with an alcohol-based hand developmental writing instructor that contains 60 to 95% alcohol, covering all surfaces of yo ur hands and rubbing them together until they feel dry. Soap and water should be used prefer entially if hands are visibly dirty. Avoid touching your eyes, nose, and mouth with unwashed hands. Avoid sharing personal household items You should not share dishes, drinking glasses, cups, eating utensils, towels, or bedding wi th other people or pets in your home. After using these items, they should be washed thoroug hly with soap and water. Clean all high-touch surfaces everyday High touch surfaces include counters, tabletops, doorknobs, bathroom fixtures, toilets, kelli migel, keyboards, tablets, and bedside tables. Also, clean any surfaces that may have blood, s tool, or body fluids on them. Use a household cleaning spray or wipe, according to the label instructions. Labels contain instructions for safe and effective use of the cleaning produc t including precautions you should take when applying the product, such as wearing gloves an d making sure you have good ventilation during use of the product. Monitor your symptoms Seek prompt medical attention if your illness is worsening (e.g., difficulty breathing). Be fore seeking care, call your healthcare provider and tell them that you have, or are being e valuated for, COVID-19. Put on a facemask before you enter the facility. These steps will he lp the healthcare provider s office to keep other people in the office or waiting room fro m getting infected or exposed. Ask your healthcare provider to call the local health depart ent at [phone]. Persons who are placed under active monitoring or facilitated self-nate toring should follow instructions provided by their local health department or occupational health professionals, as appropriate. If you have a medical emergency and need to call 911, notify the dispatch personnel that yo u have, or are being evaluated for COVID-19. If possible, put on a facemask before emergency medical services arrive. Discontinuing home isolation Patients with confirmed COVID-19 should remain under home isolation precautions until the r isk of secondary transmission to others is thought to be low. The decision to discontinue ho me isolation precautions should be made on a lzuj-av-owgi basis, in consultation with health care providers and [facility] and [facility] health departments. As of the current time, this require s confirmation negative results from both throat and nasopharyngeal swabs on two consecutive collections at least 24 hours apart. Recommended precautions for household members, intimate partners, and caregivers in a nonhe althcare setting1 of A patient with symptomatic laboratory-confirmed COVID-19 or A patient under investigation Household members, intimate partners, and caregivers in a nonhealthcare setting may have cl ose contact2 with a person with symptomatic, laboratory-confirmed COVID-19 or a person under investigation. Close contacts should monitor their health; they should call their healthcar e provider right away if they develop symptoms suggestive of COVID-19 (e.g., fever, cough, s hortness of breath) Close contacts should also follow these recommendations: ? Stay home unless otherwise directed by the local health department. ? Make sure that you understand and can help the patient follow their healthcare provider s instructions for medication(s) and care. You should help the patient with basic needs in the home and provide support for getting groceries, prescriptions, and other personal needs. ? Monitor the patient s symptoms. If the patient is getting sicker, call [facility] or her [facility] and tell them that the patient has laboratory-confirmed COVID-19. This will h elp the healthcare provider s office take steps to keep other people in the office or wait ing room from getting infected. Ask the healthcare provider to call the local or [facility] department for additional guidance. If the patient has a medical emergency and you need to call 911, notify the dispatch personnel that the patient has, or is being evaluated for COV ID-19. ? Household members should stay in another room or be from the patient as much as possible. Household members should use a separate bedroom and bathroom, if available. ? Prohibit visitors who do not have an essential need to be in the home. ? Household members should care for any pets in the home. Do not handle pets or other anima ls while sick. For more information, see COVID-19 and Animals. ? Make sure that shared spaces in the home have good air flow, such as by an air conditione r or an opened window, weather permitting. ? Perform hand hygiene frequently. Wash your hands often with soap and water for at least 2 0 seconds or use an alcohol-based hand developmental writing instructor that contains 60 to 95% alcohol, covering a ll surfaces of your hands and rubbing them together until they feel dry. Soap and water shou ld be used preferentially if hands are visibly dirty. ? Avoid touching your eyes, nose, and mouth with unwashed hands. ? You and the patient should wear a facemask if you are in the same room. ? Wear a disposable facemask and gloves when you touch or have contact with the patient s blood, stool, or body fluids, such as saliva, sputum, nasal mucus, vomit, urine. o Throw out disposable facemasks and gloves after using them. Do not reuse. o When removing personal protective equipment, first remove and dispose of gloves. Then, im mediately clean your hands with soap and water or alcohol-based hand developmental writing instructor. Next, remove and dispose of facemask, and immediately clean your hands again with soap and water or alco hol-based hand developmental writing instructor. ? Avoid sharing household items with the patient. You should not share dishes, drinking gla sses, cups, eating utensils, towels, bedding, or other items. After the patient uses these i tems, you should wash them thoroughly (see below Wash laundry thoroughly ). ? Clean all high-touch surfaces, such as counters, tabletops, doorknobs, bathroom fix tures, toilets, phones, keyboards, tablets, and bedside tables, every day. Also, clean any s urfaces that may have blood, stool, or body fluids on them. o Use a household cleaning spray or wipe, according to the label instructions. Labels conta in instructions for safe and effective use of the cleaning product including precautions you should take when applying the product, such as wearing gloves and making sure you have good ventilation during use of the product. ? Wash laundry thoroughly. o Immediately remove and wash clothes or bedding that have blood, stool, or body fluids on them. o Wear disposable gloves while handling soiled items and keep soiled items away from your b jessica. Clean your hands (with soap and water or an alcohol-based hand developmental writing instructor) immediately a fter removing your gloves. o Read and follow directions on labels of laundry or clothing items and detergent. In gener al, using a normal laundry detergent according to washing machine instructions and dry thoro ughly using the warmest temperatures recommended on the clothing label. ? Place all used disposable gloves, facemasks, and other contaminated items in a lined cont ainer before disposing of them with other household waste. Clean your hands (with soap and w ater or an alcohol-based hand developmental writing instructor) immediately after handling these items. Soap and wa ter should be used preferentially if hands are visibly dirty. ? Discuss any additional questions with your state or local health department or healthcare provider. For more helpful tips visit our Coronavirus site Stay Informed [facility] and [employer] [facility] documented in this encounter Progress Notes Oleksandr Hyde MD - 09/21/2019 10:30 AM PDTFormatting of this note might be different f rom the original. Pulmonary Follow Up 09/21/2019 HPI Priscila Brasher is a 79 y.o. female patient of David Arias MD here today for foll ow up of severe COPD/emphysema and hypoxemia. The last pulmonary clinic visit was on 03/17/2019. Since their last appointment they feel l alida their breathing issues have been stable. Priscila was apparently hospitalized for a severe migraine headache in the latter part of 2018. Over the last 5-6 days the patient is noted drooping of her left eyelid. She has some diff iculty eating. No weakness. Priscila is following up with Dr. Arias in the near future. They have not had any acute pulmonary illnesses. The patient has not required a prednisone taper since our last clinic appointment. Likewise Priscila has not required antibiotics for a COPD exacerbation since our last clinic appointment. The patient is currently on a daily regimen of budesonide via nebulizer twice a day for the ir COPD. They do feel like this medication regimen is/are controlling their symptoms. They are using their Duoneb nebulizer, 2 times a day. Currently the patient is able to walk 50-200 feet at their own pace on level ground before developing dyspnea. They are exercising regularly. Their typical exercise consists of walkin g, light weights and pool. Priscila are not enrolled in cardiac/pulmonary rehabilitation. Th michelle have not completed pulmonary rehabilitation in the past. Priscila does cough chronically and does produce mucous. The mucous is yellow-clear in color . They have not had hemoptysis since our last appointment. She has been evaluated for nocturnal oxygen. They currently are using nocturnal oxygen. Mode oakley is currently on 2 LPM at night while sleeping. They report excellent compliance. They have been evaluated for daytime oxygen and do use it. They are currently on 2 LPM with exertion and RA-2 LPM at rest. They have not reported recent symptoms of nasal congestion, runny nose or post nasal drip. The patient have received this year's influenza vaccination. They are up to date with thei r Pneumovax and Prevnar 13. No tobacco use. Past Medical History Past Medical History: Diagnosis Date Acid reflux disease Acute PR (HCC) 12/15/13 4 stents placed Arthritis CAD [...] She reports that she quit smoking about 30 years ago. Her smoking use included cigarettes. She has a 180.00 pack-year smoking history. She has never used smokeless tobacco. She report s that she does not drink alcohol or use drugs. Allergies: Allergies Allergen Reactions Penicillins Anaphylaxis Sulfa Antibiotics Other reaction(s): Severe Skin Reaction HIVES/SWELLING Rifampin Hives Codeine Levaquin [Levofloxacin] Other (See Comments) . Codeine Sulfate Nausea And Vomiting Isosorbide Nitrate Nausea And Vomiting Other reaction(s): Headache Tetanus Toxoid Other reaction(s): GI Distress Tetanus Toxoids Hives Medications: Current Outpatient Medications: albuterol-ipratropium 2.5-0.5 mg/3 mL SOLN, USE 1 VIAL IN NEBULIZER EVERY 4 HOURS, Dis p: 180 vial, Rfl: 3 amitriptyline (ELAVIL) 25 mg tablet, Take one tablet at bedtime, Disp: , Rfl: 99 aspirin 81 mg EC tablet, Take 81 mg by mouth Daily., Disp: , Rfl: atorvaSTATin (LIPITOR) 40 mg tablet, TAKE ONE TABLET BY MOUTH NIGHTLY AT BEDTIME , Dis p: 90 tablet, Rfl: 0 budesonide (PULMICORT) 0.5 mg/2 mL nebulizer solution, USE 1 VIAL IN NEBULIZER TWICE DAILY - Rinse Mouth After Use, Disp: 60 vial, Rfl: 3 dexamethasone (DECADRON) 2 MG tablet, , Disp: , Rfl: fluticasone (FLONASE) 50 mcg/nasal spray, 2 sprays by Nasal route Daily., Disp: , Rfl: 99 formoterol (PERFOROMIST) 20 MCG/2ML nebulizer solution, Take 2 mLs by nebulization Coby ry 12 hours. Duration: Lifetime Dx: J43.2 Centrilobular emphysema, Disp: 120 mL, Rfl: 5 meloxicam (MOBIC) 15 mg tablet, , Disp: [...] DOSE (ZOSTAVAX) 10/24/2008, 01/24/2009, 06/16/2009 Objective BP 124/76 | Pulse 79 | Ht 1.626 m (5' 4") | Wt 71.1 kg (156 lb 12 oz) | SpO2 98% Commen t: 2L of oxygen | BMI 26.91 kg/m Physical Exam Constitutional: She is oriented to person, place, and time and well-developed, well-nourish ed, and in no distress. HENT: Head: Normocephalic. Nose: No mucosal edema. Right sinus exhibits no frontal sinus tenderness. Left sinus exhibi ts no frontal sinus tenderness. Mouth/Throat: Oropharynx is clear and moist and mucous membranes are normal. The patient has ptosis on the left. No abnormalities of the smile. Reduced furling of the brow on the left. Eyes: Pupils are equal, round, and reactive to light. Neck: Trachea normal. Neck supple. No JVD [...] Affect normal. Data: None Assessment 1. COPD severe. Currently treated with budesonide and as needed DuoNeb. No apparent se sudheer COPD exacerbations over the last 6 months. Priscila is participating in regular schedule exercise. 2. Hypoxemia stable O2 requirements are noted. The patient appears to be wearing suppl emental oxygen in appropriate manner. 3. Ptosis involving the left eyelid with sparing of the facial muscles of the brow and m outh. 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 The patient erik schmidt is not experiencing focal motor weakness or speech issues. Priscila is scheduled to discuss the symptoms in the near future with Dr. Arias. She damian l present to the local emergency department if her symptoms progress. Blood pressure is within normal limits. No evidence of atrial fibrillation. Plan 1. Next seasons influenza vaccination by 02/06/2020. 2. No change in the patient's COPD medication regimen. 3. Pulmonary clinic follow-up appointment in 6 months time. CC: David Arias MD documented in this encounter Plan of Treatment Not on filedocumented as of this encounter Visit Diagnoses + + | Diagnosis | + + | Chronic obstructive pulmonary disease, unspecified COPD type (HCC) - Primary | + + | Hypoxemia | + + documented in this encounter
--- OUTSIDE RECORDS SUMMARY | 2019-12-11 13:52 | XMS ---
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 Care History Medical/Surgical 05/31/2019 [facility] Referral for pulmonary rehab received. patient is willing to start as soon as possible. Will schedule this week. 12/22/2018 [facility] - PATIENT HAS A FOLLOW UP APT WITH DR DUNLAP ON 12/24/18. 10/26/2018 [facility] - PATIENT CURRENTLY ON [facility]- - [facility] IS CURRENTLY PROVIDING PHYSICAL THERAPY- RN SERVICES. - [facility] CONTACT: . E.D. VISIT COUNT ([address] [facility]. TOTAL 4 NOTE: Visits indicate total known visits. ED/UCC VISIT TRACKING (12 MO.) 12/11/2019 13:50 [facility] [place] TYPE: Emergency COMPLAINT: - CHEST PAIN 05/24/2019 14:23 [facility] [place] TYPE: Emergency COMPLAINT: - CHEST PAIN 05/10/2019 14:00 [facility] [place] TYPE: Emergency COMPLAINT: - SOB 12/17/2018 11:38 [facility] [place] TYPE: Emergency COMPLAINT: - KNEE PAIN DIAGNOSES: - Allergy status to sulfonamides status - Allergy status to other drugs, medicaments and biological sub - Personal history of pulmonary embolism - Personal history of nicotine dependence - Old myocardial infarction - Pain in left knee - Allergy status to other antibiotic agents status - Allergy status to narcotic agent status - Allergy status to penicillin - Allergy status to serum and vaccine status - Other extermination supervisor (current) drug therapy - Cellulitis of left lower limb INPATIENT VISIT TRACKING (12 MO.) 05/24/2019 14:24 [facility] [place] TYPE: Observation COMPLAINT: - NAUSEA/VOMITING DIAGNOSES: - Unspecified mood [affective] disorder - Essential (primary) hypertension - Hyperlipidemia, unspecified - Other migraine, not intractable, without status migrainosus - Other extermination supervisor (current) drug therapy - Allergy status to serum and vaccine status - Nausea with vomiting, unspecified - terminal clerk (current) use of inhaled steroids - Gastro-esophageal reflux disease without esophagitis - Allergy status to other drugs, medicaments and biological sub - Allergy status to penicillin - Chronic obstructive pulmonary disease, unspecified - prison (current) use of antibiotics - Allergy status to sulfonamides status - Allergy status to narcotic agent status - 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 05/10/2019 14:01 [facility] [place] TYPE: Observation COMPLAINT: - COPD EXACERBATION DIAGNOSES: - terminal clerk (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 - Tachycardia, unspecified - Personal history of nicotine dependence - Gastro-esophageal reflux disease without esophagitis - Presence of coronary angioplasty implant and graft - Allergy status to narcotic agent status - Allergy status to other antibiotic agents status - 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
--- NOTE | 2019-12-11 21:48 | EKG ---
[facility] [address] [place] [address] Signed Sinus rhythm with occasional premature ventricular complexes Nonspecific ST abnormality Abnormal ECG When compared with ECG of 24-MAY-2019 14:36, premature ventricular complexes are now present Nonspecific T wave abnormality now evident in Anterior leads QT has lengthened Confirmed by ABDOUL PENDLETON MD ([id number]) on 12/11/2019 9:48:07 PM Electronically Signed By: ABDOUL PENDLETON MD 12/11/19 2148 PATIENT NAME: NATALY SHANNON Electrocardiogram DATE OF : 44 PHYSICIAN: ABDOUL PENDLETON MD REPORT #: [id number] REPORT IS CONFIDENTIAL AND NOT TO BE RELEASED WITHOUT AUTHORIZATION
== END 2019-12-11 18:05 | disposition home or self-care (01) ==
LOC: ED 13:50
DX: R07.9 Chest pain, unspecified (principal); J44.9 Chronic obstructive pulmonary disease, unspecified; F32.9 Major depressive disorder, single episode, unspecified; G43.909 Migraine, unspecified, not intractable, without status migrainosus; Z87.891 Personal history of nicotine dependence; Z88.0 Allergy status to penicillin; Z88.7 Allergy status to serum and vaccine; Z88.2 Allergy status to sulfonamides; Z88.5 Allergy status to narcotic agent; Z88.8 Allergy status to other drugs, medicaments and biological substances; Z79.899 Other long term (current) drug therapy; Z79.82 Long term (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
CPT/HCPCS: 71045; 80048; 84484; 85025; 93005; 93010; 96361; 96374; 96375; 99285-25; J2270; J2405; J7030

== ENCOUNTER 2020-03-03 19:42 | Emergency (ER) | payer MEDICARE, OTHER, MEDICAID ==
[~2020-03-03] VITALS: Ht 162.6 cm; Wt 69.8 kg
--- OUTSIDE RECORDS SUMMARY | 2020-03-03 19:46 | XMS ---
PreManage Notification: NATALY SHANNON Security [employer] Worker Events No recent Security Events currently on file CRITERIA MET - [facility] - Has Care Guidelines CARE PROVIDERS MUSTAP[facility] 08/14/2018-Current PHONE: [phone] Yolande has no Care Guidelines for this patient. Care History Medical/Surgical 05/31/2019 [facility] Referral for pulmonary rehab received. patient is willing to start as soon as possible. Will schedule this week. Iqra VISIT COUNT (12 MO.) 4 [facility]. TOTAL 4 NOTE: Visits indicate total known visits. ED/UCC VISIT TRACKING (12 MO.) 03/03/2020 19:43 [facility] [place] TYPE: Emergency COMPLAINT: - NAUSEA/HEADACE/SOB/JAW PAIN 12/11/2019 13:50 [facility] [place] TYPE: Emergency COMPLAINT: - CHEST PAIN DIAGNOSES: - Migraine, unspecified, not intractable, without status migrainosus - Allergy status to penicillin - detention (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 - Allergy status to other drugs, medicaments and biological substances - Chronic obstructive pulmonary disease, unspecified - Chest pain, unspecified - Allergy status to narcotic agent - Allergy status to serum and vaccine - Other superintendent container terminal (current) drug therapy - Major depressive disorder, single episode, unspecified - Allergy status to sulfonamides - Personal history of nicotine dependence 05/24/2019 14:23 [facility] [place] TYPE: Emergency COMPLAINT: - CHEST PAIN 05/10/2019 14:[address] [facility] [place] TYPE: Emergency COMPLAINT: - SOB INPATIENT VISIT TRACKING (12 MO.) 05/24/2019 14:[address] [facility] [place] TYPE: Observation COMPLAINT: - NAUSEA/VOMITING DIAGNOSES: - Unspecified mood [affective] disorder - Essential (primary) hypertension - Hyperlipidemia, unspecified - Other migraine, not intractable, without status migrainosus - Other chcf (current) drug therapy - Allergy status to serum and vaccine - Nausea with vomiting, unspecified - detention (current) use of inhaled steroids - Gastro-esophageal reflux disease without esophagitis - Allergy status to other drugs, medicaments and biological substances - Allergy status to penicillin - Chronic obstructive pulmonary disease, unspecified - intermediate frame tender (current) use of antibiotics - Allergy status to sulfonamides - Allergy status to narcotic agent - Atherosclerotic heart disease of [place] coronary artery without angina pectoris 05/10/2019 14:01 [facility] [place] TYPE: Observation COMPLAINT: - COPD EXACERBATION DIAGNOSES: - intermediate frame tender (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 - Tachycardia, unspecified - Personal history of nicotine dependence - Gastro-esophageal reflux disease without esophagitis - Presence of coronary angioplasty implant and graft - Allergy status to narcotic agent - Allergy status to other antibiotic agents - Atherosclerotic heart disease of [place] coronary artery without angina pectoris - Hyperlipidemia, unspecified - Allergy status to sulfonamides - Unspecified mood [affective] disorder - Personal history of non-Hodgkin lymphomas - Allergy status to penicillin - Allergy status to serum and vaccine - Other superintendent container terminal (current) drug therapy - intermediate frame tender (current) use of inhaled steroids - Chronic obstructive pulmonary disease with (acute) exacerbation - intermediate frame tender (current) use of non-steroidal anti-inflammatories (NSAID) [email or web address]
[2020-03-03] MEDS ORDERED: DOXYCYCLINE HY100 MG PO (22:59)
--- NOTE | 2020-03-04 17:01 | EKG ---
[facility] [address] [facility] [place] [address] Signed Sinus rhythm with occasional premature ventricular complexes Otherwise normal ECG When compared with ECG of 11-DEC-2019 13:52, Inverted T waves have replaced nonspecific T wave abnormality in Inferior leads QT has shortened Confirmed by MONROE BOONE DO ([id number]) on 03/04/2020 5:01:23 PM Electronically Signed By: MONROE BOONE DO 03/04/20 1701 PATIENT NAME: MIRTHANATALY KAITLIN Electrocardiogram DATE OF : 44 PHYSICIAN: MONROE BOONE DO REPORT #: [id number] REPORT IS CONFIDENTIAL AND NOT TO BE RELEASED WITHOUT AUTHORIZATION
== END 2020-03-03 23:38 | disposition home or self-care (01) ==
LOC: ED 19:42
DX: J32.9 Chronic sinusitis, unspecified (principal); M26.601 Right temporomandibular joint disorder, unspecified; J44.9 Chronic obstructive pulmonary disease, unspecified; G43.909 Migraine, unspecified, not intractable, without status migrainosus; I25.2 Old myocardial infarction; Z87.891 Personal history of nicotine dependence; Z88.0 Allergy status to penicillin; Z88.2 Allergy status to sulfonamides; Z88.7 Allergy status to serum and vaccine; Z88.1 Allergy status to other antibiotic agents; Z88.5 Allergy status to narcotic agent; Z79.899 Other long term (current) drug therapy; Z79.82 Long term (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
CPT/HCPCS: 70110; 80053; 84484; 85025; 93005; 93010; 96374; 96375; 99284-25; J1200; J1885; J2765

== ENCOUNTER 2020-05-03 17:11 | Emergency (ER) | payer MEDICARE, OTHER, MEDICAID ==
[~2020-05-03] VITALS: Ht 162.6 cm; Wt 72.6 kg
[~2020-05-03 17:11] MED LIST changes: +DOXYCYCLINE HY100 MG PO
--- OUTSIDE RECORDS SUMMARY | 2020-05-03 17:14 | XMS ---
PreManage Notification: NATALY SHANNON Security Hand Etcher Helper Events No recent Security Events currently on file CRITERIA MET - [facility] - Has Care Guidelines CARE PROVIDERS MUSTAPHA [facility] 08/14/2018-Current PHONE: [phone] Yolande has no Care Guidelines for this patient. Care History Medical/Surgical 05/31/2019 [facility] Referral for pulmonary rehab received. patient is willing to start as soon as possible. Will schedule this week. [facility]qra VISIT COUNT (12 MO.) 5 [facility]. TOTAL 5 NOTE: Visits indicate total known visits. ED/UCC VISIT TRACKING (12 MO.) 05/03/2020 17:12 [facility] TYPE: Emergency COMPLAINT: - RAPID HEART RATE 03/03/2020 19:43 [facility] TYPE: Emergency COMPLAINT: - NAUSEA/HEADACE/SOB/JAW PAIN DIAGNOSES: - Other long-term (current) drug therapy - Allergy status to sulfonamides - Allergy status to narcotic agent - Chronic sinusitis, unspecified - Jaw pain - Allergy status to other antibiotic agents - Allergy status to penicillin - Old myocardial infarction - Migraine, unspecified, not intractable, without status migrainosus - Right temporomandibular joint disorder, unspecified - Allergy status to serum and vaccine - Personal history of nicotine dependence - Chronic obstructive pulmonary disease, unspecified - termite exterminator helper (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 12/11/2019 13:50 [facility] TYPE: Emergency COMPLAINT: - CHEST PAIN DIAGNOSES: - Migraine, unspecified, not intractable, without status migrainosus - Allergy status to penicillin - termite exterminator helper (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 - Allergy status to other drugs, medicaments and biological substances - Chronic obstructive pulmonary disease, unspecified - Chest pain, unspecified - Allergy status to narcotic agent - Allergy status to serum and vaccine - Other long-term (current) drug therapy - Major depressive disorder, single episode, unspecified - Allergy status to sulfonamides - Personal history of nicotine dependence 05/24/2019 14:23 [facility] TYPE: Emergency COMPLAINT: - CHEST PAIN 05/10/2019 14:00 [facility] TYPE: Emergency COMPLAINT: - SOB INPATIENT VISIT TRACKING (12 MO.) 05/24/2019 14:24 [facility] TYPE: Observation COMPLAINT: - NAUSEA/VOMITING DIAGNOSES: - Unspecified mood [affective] disorder - Essential (primary) hypertension - Hyperlipidemia, unspecified - Other migraine, not intractable, without status migrainosus - Other long-term (current) drug therapy - Allergy status to serum and vaccine - Nausea with vomiting, unspecified - group home (current) use of inhaled steroids - Gastro-esophageal reflux disease without esophagitis - Allergy status to other drugs, medicaments and biological substances - Allergy status to penicillin - Chronic obstructive pulmonary disease, unspecified - group home (current) use of antibiotics - Allergy status to sulfonamides - Allergy status to narcotic agent - Atherosclerotic heart disease of [place] coronary artery without angina pectoris 05/10/2019 14:01 [facility] TYPE: Observation COMPLAINT: - COPD EXACERBATION DIAGNOSES: - termite exterminator helper (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 - Tachycardia, unspecified - Personal history of nicotine dependence - Gastro-esophageal reflux disease without esophagitis - Presence of coronary angioplasty implant and graft - Allergy status to narcotic agent - Allergy status to other antibiotic agents - Atherosclerotic heart disease of [place] coronary artery without angina pectoris - Hyperlipidemia, unspecified - Allergy status to sulfonamides - Unspecified mood [affective] disorder - Personal history of non-Hodgkin lymphomas - Allergy status to penicillin - Allergy status to serum and vaccine - Other long-term (current) drug therapy - group home (current) use of inhaled steroids - Chronic obstructive pulmonary disease with (acute) exacerbation - group home (current) use of non-steroidal anti-inflammatories (NSAID) [email or web address]
--- NOTE | 2020-05-04 15:20 | EKG ---
[facility] [address] [facility] [place], [place] [address] Signed Normal sinus rhythm Inferior infarct , age undetermined Abnormal ECG When compared with ECG of 03-MAR-2020 20:35, premature ventricular complexes are no longer present Inferior infarct is now present Confirmed by MONROE BOONE DO ([id number]) on 05/04/2020 3:20:25 PM Electronically Signed By: MONROE BOONE DO 05/04/20 1520 PATIENT NAME: MIRTHANATALY Schwarz KAITLIN Electrocardiogram DATE OF : 44 PHYSICIAN: MONROE BOONE DO REPORT #: [id number] REPORT IS CONFIDENTIAL AND NOT TO BE RELEASED WITHOUT AUTHORIZATION
== END 2020-05-03 22:07 | disposition home or self-care (01) ==
LOC: ED 17:11
DX: R00.2 Palpitations (principal); J44.9 Chronic obstructive pulmonary disease, unspecified; I25.2 Old myocardial infarction; Z87.891 Personal history of nicotine dependence; Z88.0 Allergy status to penicillin; Z88.1 Allergy status to other antibiotic agents; Z88.8 Allergy status to other drugs, medicaments and biological substances; Z88.5 Allergy status to narcotic agent; Z88.7 Allergy status to serum and vaccine; Z88.2 Allergy status to sulfonamides; Z79.899 Other long term (current) drug therapy; Z79.82 Long term (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
CPT/HCPCS: 71045; 80053; 83735; 84484; 85025; 85379; 93005; 93010; 99285-25

== ENCOUNTER 2020-06-13 00:43 | Emergency (ER) | payer MEDICARE, OTHER, MEDICAID ==
[~2020-06-13] VITALS: Ht 162.6 cm; Wt 67.6 kg
--- OUTSIDE RECORDS SUMMARY | 2020-06-13 00:46 | XMS ---
PreManage Notification: NATALY SHANNON Security Database Reporting Consultant Events No recent Security Events currently on file CRITERIA MET - - Has Care Guidelines CARE PROVIDERS MUSTAPHA [facility] 08/14/2018-Current PHONE: [phone] Yolande has no Care Guidelines for this patient. Care History Medical/Surgical 05/31/2019 [facility] Referral for pulmonary rehab received. patient is willing to start as soon as possible. Will schedule this week. Iqra VISIT COUNT (12 MO.) 4 [facility]. TOTAL 4 NOTE: Visits indicate total known visits. ED/UCC VISIT TRACKING (12 MO.) 06/13/2020 00:44 [facility] TYPE: Emergency COMPLAINT: - CHEST PAIN 05/03/2020 17:12 [facility] TYPE: Emergency COMPLAINT: - RAPID HEART RATE DIAGNOSES: - Palpitations - Allergy status to penicillin - Old myocardial infarction - Chronic obstructive pulmonary disease, unspecified - Allergy status to other drugs, medicaments and biological substances - Allergy status to sulfonamides - Other long wall mining machine helper (current) drug therapy - Allergy status to narcotic agent - Allergy status to other antibiotic agents - superintendent marine oil terminal (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 - Allergy status to serum and vaccine - Personal history of nicotine dependence 03/03/2020 19:43 [facility] TYPE: Emergency COMPLAINT: - NAUSEA/HEADACE/SOB/JAW PAIN DIAGNOSES: - Other long wall mining machine helper (current) drug therapy - Allergy status to [...] - Chronic obstructive pulmonary disease, unspecified - superintendent marine oil terminal (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 12/11/2019 13:50 [facility] TYPE: Emergency COMPLAINT: - CHEST PAIN DIAGNOSES: - Migraine, unspecified, not intractable, without status migrainosus - Allergy status to penicillin - superintendent marine oil terminal (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 - Allergy status to other drugs, medicaments and biological substances - Chronic obstructive pulmonary disease, unspecified - Chest pain, unspecified - Allergy status to narcotic agent - Allergy status to serum and vaccine - Other long wall mining machine helper (current) drug therapy - Major depressive disorder, single episode, unspecified - Allergy status to sulfonamides - Personal history of nicotine dependence INPATIENT VISIT TRACKING (12 MO.) No inpatient visits to display in this time frame [email or web address]
--- NOTE | 2020-06-13 09:53 | EKG ---
[facility] [address] [facility] [place], [place] [address] Signed Normal sinus rhythm Inferior infarct (cited on or before 03-MAY-2020) Possible Anterior infarct , age undetermined Abnormal ECG When compared with ECG of 03-MAY-2020 17:19, No significant change was found Confirmed by EZ SCHMITZ MD ([id number]) on 06/13/2020 9:53:29 AM Electronically Signed By: EZ SCHMITZ MD 06/13/20 0953 PATIENT NAME: NATALY SHANNON Electrocardiogram DATE OF : 44 PHYSICIAN: EZ SCHMITZ MD REPORT #: [id number] REPORT IS CONFIDENTIAL AND NOT TO BE RELEASED WITHOUT AUTHORIZATION
== END 2020-06-13 05:05 | disposition home or self-care (01) ==
LOC: ED 00:43
DX: R07.89 Other chest pain (principal); I25.2 Old myocardial infarction; Z87.891 Personal history of nicotine dependence; Z88.0 Allergy status to penicillin; Z88.1 Allergy status to other antibiotic agents; Z88.5 Allergy status to narcotic agent; Z88.7 Allergy status to serum and vaccine; Z88.2 Allergy status to sulfonamides; Z79.899 Other long term (current) drug therapy; Z79.82 Long term (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
CPT/HCPCS: 71045; 80053; 83735; 84484; 85025; 93005; 93010; 99285-25

== ENCOUNTER 2020-06-26 15:08 | Emergency (ER) | payer MEDICARE, OTHER, MEDICAID ==
[~2020-06-26] VITALS: Ht 162.6 cm; Wt 67.6 kg
--- OUTSIDE RECORDS SUMMARY | 2020-06-26 15:10 | XMS ---
PreManage Notification: NATALY SHANNON Security Financial Underwriter Events No recent Security Events currently on file CRITERIA MET - [facility] - Has Care Guidelines - [facility] - 2 Visits in 30 Days CARE PROVIDERS MUSTAPHA [facility] 06/14/2020-Current PHONE: [phone] Yolande has no Care Guidelines for this patient. Care History Medical/Surgical 05/31/2019 [facility] Referral for pulmonary rehab received. patient is willing to start as soon as possible. Will schedule this week. Iqra VISIT COUNT (12 MO.) 5 [facility]. TOTAL 5 NOTE: Visits indicate total known visits. ED/UCC VISIT TRACKING (12 MO.) 06/26/2020 15:08 [facility] TYPE: Emergency COMPLAINT: - FALL L ARM INJURY 06/13/2020 00:44 [facility] TYPE: Emergency COMPLAINT: - CHEST PAIN DIAGNOSES: - Old myocardial infarction - Other fpc (current) drug therapy - Allergy status to serum and vaccine - Allergy status to other antibiotic agents - keno terminal operator (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 - Personal history of nicotine dependence - Allergy status to narcotic agent - Other chest pain - Allergy status to penicillin - Allergy status to sulfonamides 05/03/2020 17:12 [facility] TYPE: Emergency COMPLAINT: - RAPID HEART RATE DIAGNOSES: - Palpitations - Allergy status to penicillin - Old myocardial infarction - Chronic obstructive pulmonary disease, unspecified - Allergy status to other drugs, medicaments and biological substances - Allergy status to sulfonamides - Other watermaster (current) drug therapy - Allergy status to narcotic agent - Allergy status to other antibiotic agents - keno terminal operator (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 - Allergy status to serum and vaccine - Personal history of nicotine dependence 03/03/2020 19:43 [facility] TYPE: Emergency COMPLAINT: - NAUSEA/HEADACE/SOB/JAW PAIN DIAGNOSES: - Allergy status to penicillin - keno terminal operator (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 - Chronic obstructive pulmonary disease, unspecified - Personal history of nicotine dependence - Allergy status to serum and vaccine - Right temporomandibular joint disorder, unspecified - Migraine, unspecified, not intractable, without status migrainosus - Allergy status to other antibiotic agents - Old myocardial infarction - Allergy status to sulfonamides - Allergy status to narcotic agent - Allergy status to other antibiotic agents - Jaw pain - Chronic sinusitis, unspecified - Allergy status to narcotic agent - Allergy status to sulfonamides - Allergy status to serum and vaccine - Other fpc (current) drug therapy 12/11/2019 13:50 [facility] TYPE: Emergency COMPLAINT: - CHEST PAIN DIAGNOSES: - Migraine, unspecified, not intractable, without status migrainosus - Allergy status to penicillin - FPC (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 - Allergy status to other drugs, medicaments and biological substances - Chronic obstructive pulmonary disease, unspecified - Chest pain, unspecified - Allergy status to narcotic agent - Allergy status to serum and vaccine - Other watermaster (current) drug therapy - Major depressive disorder, single episode, unspecified - Allergy status to sulfonamides - Personal history of nicotine dependence INPATIENT VISIT TRACKING (12 MO.) No inpatient visits to display in this time frame [email or web address]
[2020-06-26] MEDS ORDERED: DILTIAZEM 24HR180 M1 PO (15:32)
== END 2020-06-26 19:38 | disposition home or self-care (01) ==
LOC: ED 15:08
DX: S51.812A Laceration without foreign body of left forearm, initial encounter (principal); S00.83XA Contusion of other part of head, initial encounter; S69.92XA Unspecified injury of left wrist, hand and finger(s), initial encounter; W18.30XA Fall on same level, unspecified, initial encounter; J44.9 Chronic obstructive pulmonary disease, unspecified; I25.2 Old myocardial infarction; Z87.891 Personal history of nicotine dependence; Z88.0 Allergy status to penicillin; Z88.8 Allergy status to other drugs, medicaments and biological substances; Z88.5 Allergy status to narcotic agent; Z88.7 Allergy status to serum and vaccine; Z88.2 Allergy status to sulfonamides; Z88.1 Allergy status to other antibiotic agents; Z79.899 Other long term (current) drug therapy; Z79.82 Long term (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
CPT/HCPCS: 29125; 73110; 99283-25

== ENCOUNTER 2020-07-27 12:04 | Emergency (ER) | payer MEDICARE, OTHER, MEDICAID ==
[~2020-07-27] VITALS: Ht 162.6 cm; Wt 67.6 kg
[~2020-07-27 12:04] MED LIST changes: +DILTIAZEM 24HR180 M1 PO
--- OUTSIDE RECORDS SUMMARY | 2020-07-27 12:08 | XMS ---
PreManage Notification: NATALY SHANNON Security Voltage Regulator Assembler Events No recent Security Events currently on file CRITERIA MET - [facility] - Has Care Guidelines CARE PROVIDERS MUSTAPHA [facility] 06/14/2020-Current PHONE: [phone] Yolande has no Care Guidelines for this patient. Care History Medical/Surgical 05/31/2019 [facility] Referral for pulmonary rehab received. patient is willing to start as soon as possible. Will schedule this week. Iqra VISIT COUNT (12 MO.) 6 [facility]. TOTAL 6 NOTE: Visits indicate total known visits. ED/UCC VISIT TRACKING (12 MO.) 07/27/2020 12:05 [facility] TYPE: Emergency COMPLAINT: - N/V/DIARRHEA 06/26/2020 15:08 [facility] TYPE: Emergency COMPLAINT: - FALL L ARM INJURY DIAGNOSES: - Contusion of other part of head, initial encounter - Laceration without foreign body of left forearm, initial encounter - Personal history of nicotine dependence - Pain in left wrist - Allergy status to penicillin - Allergy status to narcotic agent - Fall on same level, unspecified, initial encounter - Allergy status to other antibiotic agents - Chronic obstructive pulmonary disease, unspecified - Unspecified injury of left wrist, hand and finger(s), initial encounter - Other jail (current) drug therapy - Allergy status to serum and vaccine - Old myocardial infarction - Allergy status to other drugs, medicaments and biological substances - Allergy status to sulfonamides - assisted (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 06/13/2020 00:44 [facility] TYPE: Emergency COMPLAINT: - CHEST PAIN DIAGNOSES: - Old myocardial infarction - Other ocean transportation intermediary (current) drug therapy - Allergy status to serum and vaccine - Allergy status to other antibiotic agents - assisted (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 - Personal history [...] - Allergy status to sulfonamides - Other jail (current) drug therapy - Allergy status to narcotic agent - Allergy status to other antibiotic agents - assisted (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 - Allergy status to serum and vaccine - Personal history of nicotine dependence 03/03/2020 19:43 [facility] TYPE: Emergency COMPLAINT: - NAUSEA/HEADACE/SOB/JAW PAIN DIAGNOSES: - Allergy status to penicillin - assisted (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 - Chronic obstructive [...] status to serum and vaccine - Other jail (current) drug therapy 12/11/2019 13:[address] [facility] [place] TYPE: Emergency COMPLAINT: - CHEST PAIN DIAGNOSES: - Migraine, unspecified, not intractable, without status migrainosus - Allergy status to penicillin - watermaster (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 - Allergy status to other drugs, medicaments and biological substances - Chronic obstructive pulmonary disease, unspecified - Chest pain, unspecified - Allergy status to narcotic agent - Allergy status to serum and vaccine - Other jail (current) drug therapy - Major depressive disorder, single episode, unspecified - Allergy status to sulfonamides - Personal history of nicotine dependence INPATIENT VISIT TRACKING (12 MO.) No inpatient visits to display in this time frame [email or web address]
[2020-07-27] MEDS ORDERED: ONDANSETRON ODT8 MG PO (16:27)
== END 2020-07-27 16:48 | disposition home or self-care (01) ==
LOC: ED 12:04
DX: K52.9 Noninfective gastroenteritis and colitis, unspecified (principal); J44.9 Chronic obstructive pulmonary disease, unspecified; I25.2 Old myocardial infarction; I48.91 Unspecified atrial fibrillation; Z87.891 Personal history of nicotine dependence; Z88.0 Allergy status to penicillin; Z88.7 Allergy status to serum and vaccine; Z88.2 Allergy status to sulfonamides; Z88.1 Allergy status to other antibiotic agents; Z88.5 Allergy status to narcotic agent; Z79.899 Other long term (current) drug therapy; Z79.82 Long term (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
CPT/HCPCS: 80053; 81001; 83735; 85025; 96374; 96375; 99284-25; J1885; J2405; J7030

== ENCOUNTER 2021-06-25 16:52 | Emergency (ER) | payer MEDICARE, OTHER, MEDICAID ==
[~2021-06-25] VITALS: Ht 162.6 cm; Wt 67.6 kg
[~2021-06-25 16:52] MED LIST changes: +ONDANSETRON ODT8 MG PO
--- OUTSIDE RECORDS SUMMARY | 2021-06-25 16:54 | XMS ---
PreManage Notification: NATALY SHANNON Security Canned Food Reconditioning Inspector Events No recent Security Events currently on file CRITERIA MET - [facility] - Has Care Guidelines - [facility] CARE PROVIDERS MUSTAPHA [facility] 06/14/2020-Current PHONE: Unknown Yolande has no Care Guidelines for this patient. Care History Medical/Surgical 08/02/2020 [facility] - CHW SPOKE WITH PATIENT-DISCUSSED FOLLOW UP CONCERNS WITH PCP DR LUCIANO- PATIENT IS GOING TO SEE DR LUCIANO 08/11/2020. - PATIENT LIVES AT HOME ALONE AND HAS HER SON AND DAUGHTER IN LAW HELP HER WHEN THEY CAN. - PATIENT DOES NOT WANT ASSISTANCE WITH IN HOME CARE AT THIS TIME SHE PREFERS TO DO IT ON HER OWN AND LIVE BY HERSELF. - CHW HIGHLY RECOMMENDED IN HOME CARE WHEN THE TIME COMES. PATIENT AGREED. 05/31/2019 [facility] Referral for pulmonary rehab received. patient is willing to start as soon as possible. Will schedule this week. E.D. VISIT COUNT (12 MO.) 3 [facility] TOTAL 3 NOTE: Visits indicate total known visits. ED/UCC VISIT TRACKING (12 MO.) 06/25/2021 16:52 [facility] TYPE: Emergency COMPLAINT: - CHEST PAIN 07/27/2020 12:05 [facility] TYPE: Emergency COMPLAINT: - N/V/DIARRHEA DIAGNOSES: - Old myocardial infarction - putty mixer (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 - Unspecified atrial fibrillation - Noninfective gastroenteritis and colitis, unspecified - Other chcf (current) drug therapy - Chronic obstructive pulmonary disease, unspecified - Personal history of nicotine dependence - Nausea with vomiting, unspecified - Allergy status to other antibiotic agents - Allergy status to sulfonamides - Allergy status to serum and vaccine - Allergy status to narcotic agent - Allergy status to penicillin 06/26/2020 15:08 [facility] TYPE: Emergency [...] hand and finger(s), initial encounter - Other column precaster (current) drug therapy - Allergy status to serum and vaccine - Old myocardial infarction - Allergy status to other drugs, medicaments and biological substances - Allergy status to sulfonamides - putty mixer (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 INPATIENT VISIT TRACKING (12 MO.) No inpatient visits to display in this time frame [email or web address]
[2021-06-25] MEDS ORDERED: VENTOLIN HFA18 GM INH (17:14)
[2021-06-25] MEDS ORDERED: PERFOROMIS20 MCG/2 M INH (17:14)
[2021-06-25] MEDS ORDERED: NITROGLYCERIN0.4 MG SL (19:55)
--- NOTE | 2021-06-26 12:37 | EKG ---
[facility] [address] [facility] [place], [place] [address] Signed Sinus tachycardia with occasional premature ventricular complexes Possible Left atrial enlargement Possible Anterior infarct , age undetermined Abnormal ECG No previous ECGs available Confirmed by EZ SCHMITZ MD ([id number]) on 06/26/2021 12:37:30 PM Electronically Signed By: EZ SCHMITZ MD 06/26/21 1237 PATIENT NAME: NATALY SHANNON Electrocardiogram DATE OF : 44 PHYSICIAN: EZ SCHMITZ MD REPORT #: [id number] REPORT IS CONFIDENTIAL AND NOT TO BE RELEASED WITHOUT AUTHORIZATION
--- NOTE | 2021-06-26 12:38 | EKG ---
[facility] [address] [facility] [place], [place] [address] Signed Sinus rhythm with occasional premature ventricular complexes Septal infarct (cited on or before 13-JUN-2020) Abnormal ECG When compared with ECG of 25-JUN-2021 16:51, (Unconfirmed) No significant change was found Confirmed by EZ SCHMITZ MD ([id number]) on 06/26/2021 12:37:48 PM Electronically Signed By: EZ SCHMITZ MD 06/26/21 1238 PATIENT NAME: NATALY SHANNON Electrocardiogram DATE OF : 44 PHYSICIAN: EZ SCHMITZ MD REPORT #: [id number] REPORT IS CONFIDENTIAL AND NOT TO BE RELEASED WITHOUT AUTHORIZATION
== END 2021-06-25 20:00 | disposition home or self-care (01) ==
LOC: ED 16:52
DX: R07.89 Other chest pain (principal); J44.9 Chronic obstructive pulmonary disease, unspecified; I25.2 Old myocardial infarction; I48.91 Unspecified atrial fibrillation; Z87.891 Personal history of nicotine dependence; Z88.0 Allergy status to penicillin; Z88.7 Allergy status to serum and vaccine; Z88.2 Allergy status to sulfonamides; Z88.8 Allergy status to other drugs, medicaments and biological substances; Z88.5 Allergy status to narcotic agent; Z79.899 Other long term (current) drug therapy; Z79.82 Long term (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; Z79.52 Long term (current) use of systemic steroids; Z79.51 Long term (current) use of inhaled steroids
CPT/HCPCS: 36415; 71045; 80053; 83735; 84484; 85025; 93005; 93010; 96374; 99285-25; J2405

== ENCOUNTER 2021-07-31 23:06 | Emergency (ER) | payer MEDICARE, OTHER ==
[~2021-07-31] VITALS: Ht 162.6 cm; Wt 59.0 kg
[~2021-07-31 23:06] MED LIST changes: +VENTOLIN HFA18 GM INH
--- OUTSIDE RECORDS SUMMARY | 2021-07-31 23:08 | XMS ---
PreManage Notification: NATALY SHANNON Security Supervisor Felting Events No recent Security Events currently on file CRITERIA MET - [facility] - Has Care Guidelines - [facility] CARE PROVIDERS MUSTAPHA [facility] 06/14/2020-Current PHONE: Unknown Yolande has no Care Guidelines for this patient. Care History Medical/Surgical 08/02/2020 [facility] - CHW SPOKE WITH PATIENT-DISCUSSED FOLLOW UP [...] WHEN THE TIME COMES. PATIENT AGREED. 05/31/2019 [facility] Referral for pulmonary rehab received. patient is willing to start as soon as possible. Will schedule this week. E.D. VISIT COUNT (12 MO.) 2 [facility] TOTAL 2 NOTE: Visits indicate total known visits. ED/UCC VISIT TRACKING (12 MO.) 07/31/2021 23:06 [facility] TYPE: Emergency COMPLAINT: - BODY ACHE, HEAD ACHE, SOB 06/25/2021 16:52 [facility] TYPE: Emergency COMPLAINT: - CHEST PAIN DIAGNOSES: - Allergy status to other drugs, medicaments and biological substances - Other half-way (current) drug therapy - Old myocardial infarction - penitentiary (current) use of inhaled steroids - Allergy status to sulfonamides - intermediate manager (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 - Other chest pain - Personal history of nicotine dependence - Allergy status to narcotic agent - Unspecified atrial fibrillation - Chronic obstructive pulmonary disease, unspecified - Allergy status to penicillin - penitentiary (current) use of systemic steroids - Allergy status to serum and vaccine INPATIENT VISIT TRACKING (12 MO.) No inpatient visits to display in this time frame [email or web address]
[2021-07-31] MEDS ORDERED: PERFOROMIS20 MCG/2 M INH (23:35)
[2021-07-31] MEDS ORDERED: ALENDRONATE SOD70 MG PO (23:38)
[2021-07-31] MEDS ORDERED: METFORMIN HCL500 M2 PO (23:38)
--- NOTE | 2021-08-01 19:09 | EKG ---
[facility] [address] [facility] [place], [place] [address] Signed Sinus tachycardia with frequent and consecutive premature ventricular complexes Septal infarct (cited on or before 13-JUN-2020) Abnormal ECG When compared with ECG of 25-JUN-2021 18:41, No significant change was found Confirmed by EZ SCHMITZ MD ([id number]) on 08/01/2021 7:09:44 PM Electronically Signed By: EZ SCHMITZ MD 08/01/21 1909 PATIENT NAME: NATALY SHANNON Electrocardiogram DATE OF : 44 PHYSICIAN: EZ SCHMITZ MD REPORT #: [id number] REPORT IS CONFIDENTIAL AND NOT TO BE RELEASED WITHOUT AUTHORIZATION
== END 2021-08-01 01:15 | disposition home or self-care (01) ==
LOC: ED 23:06
DX: J10.1 Influenza due to other identified influenza virus with other respiratory manifestations (principal); J44.9 Chronic obstructive pulmonary disease, unspecified; I25.2 Old myocardial infarction; E11.9 Type 2 diabetes mellitus without complications; Z99.81 Dependence on supplemental oxygen; Z79.84 Long term (current) use of oral hypoglycemic drugs; Z79.899 Other long term (current) drug therapy; Z87.891 Personal history of nicotine dependence; Z88.0 Allergy status to penicillin; Z88.5 Allergy status to narcotic agent; Z88.2 Allergy status to sulfonamides; Z88.7 Allergy status to serum and vaccine; Z88.8 Allergy status to other drugs, medicaments and biological substances; Z20.822 Contact with and (suspected) exposure to COVID-19
CPT/HCPCS: 36415; 71045; 80053; 83735; 83880; 84484; 85025; 93005; 93010; 99285-25; A9270; U0003

== ENCOUNTER 2022-11-13 10:07 | Emergency (ER) | payer MEDICARE, OTHER | END 2022-11-13 12:39 | disposition home or self-care (01) | LOC: ED 10:07 | DX: S43.014A Anterior dislocation of right humerus, initial encounter (principal); S43.034A Inferior dislocation of right humerus, initial encounter; I25.2 Old myocardial infarction; J44.9 Chronic obstructive pulmonary disease, unspecified; E11.9 Type 2 diabetes mellitus without complications; I48.91 Unspecified atrial fibrillation; Z87.891 Personal history of nicotine dependence; Z88.0 Allergy status to penicillin; Z88.2 Allergy status to sulfonamides; Z88.7 Allergy status to serum and vaccine; Z88.5 Allergy status to narcotic agent; Z88.8 Allergy status to other drugs, medicaments and biological substances; Z79.82 Long term (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; Z79.84 Long term (current) use of oral hypoglycemic drugs ==

== ENCOUNTER 2022-12-21 18:42 | Emergency (ER) | payer MEDICARE, OTHER ==
[~2022-12-21] VITALS: Ht 162.6 cm; Wt 58.7 kg
[~2022-12-21 18:42] MED LIST changes: +ALENDRONATE SOD70 MG PO; +BENZONATATE100 MG PO; +CENTRUM SILVER1 EAC3 PO; +HAIR, SKIN & N1 EACH PO; +METFORMIN HCL500 M2 PO
--- OUTSIDE RECORDS SUMMARY | 2022-12-21 18:46 | XMS ---
PreManage Notification: NATALY SHANNON Security Fleecer Events No recent Security Events currently on file CRITERIA MET - [facility] CARE PROVIDERS MUSTAPHA [facility] 06/14/2020-Current PHONE: Unknown Yolande has no Care Guidelines for this patient. Care History Medical/Surgical 08/02/2020 [facility] - CHW SPOKE WITH PATIENT-DISCUSSED FOLLOW UP [...] WHEN THE TIME COMES. PATIENT AGREED. 05/31/2019 [facility] Referral for pulmonary rehab received. patient is willing to start as soon as possible. Will schedule this week. E.D. VISIT COUNT (12 MO.) 3 [facility] TOTAL 3 NOTE: Visits indicate total known visits. ED/UCC VISIT TRACKING (12 MO.) 12/21/2022 18:44 [facility] TYPE: Emergency COMPLAINT: - HAND INFECTION 11/13/2022 10:07 [facility] TYPE: Emergency COMPLAINT: - R SHOULDER PAIN, ARM NUMBNESS DIAGNOSES: - Allergy status to narcotic agent - Allergy status to other drugs, medicaments and biological substances - Allergy status to penicillin - Allergy status to serum and vaccine - Allergy status to sulfonamides - Anterior dislocation of right humerus, initial encounter - Chronic obstructive pulmonary disease, unspecified - Inferior dislocation of right humerus, initial encounter - moth exterminator (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 - shelter (current) use of oral hypoglycemic drugs - Old myocardial infarction - Pain in right shoulder - Personal history of nicotine dependence - Type 2 diabetes mellitus without complications - Unspecified atrial fibrillation 02/22/2022 03:37 [facility] TYPE: Emergency COMPLAINT: - SOB INPATIENT VISIT TRACKING (12 MO.) 02/22/2022 03:38 [facility] TYPE: Observation COMPLAINT: - COPD EXACERBATION DIAGNOSES: - Allergy status to narcotic agent - Allergy status to other antibiotic agents - Allergy status to other drugs, medicaments and biological substances - Allergy status to penicillin - Allergy status to serum and vaccine - Allergy status to sulfonamides - Atherosclerotic heart disease of poarch coronary artery without angina pectoris - Chronic obstructive pulmonary disease with (acute) exacerbation - Chronic respiratory failure with hypoxia - Contact with and (suspected) exposure to COVID-19 - Essential (primary) hypertension - Gastro-esophageal reflux disease without esophagitis - Hyperlipidemia, unspecified - Hypomagnesemia - shelter (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 - moth exterminator (current) use of oral hypoglycemic drugs - Migraine, unspecified, not intractable, without status migrainosus - Old myocardial infarction - Personal history of nicotine dependence - Personal history of non-Hodgkin lymphomas - Personal history of pulmonary embolism - Presence of coronary angioplasty implant and graft - Type 2 diabetes mellitus without complications - Unspecified atrial fibrillation [email or web address]
[2022-12-21] MEDS ORDERED: DOXYCYCLINE HY100 MG PO (19:50)
[2022-12-21 20:25] VITALS: BP 126/75
== END 2022-12-21 20:26 | disposition home or self-care (01) ==
LOC: ED 18:42
DX: L08.9 Local infection of the skin and subcutaneous tissue, unspecified (principal); S60.512A Abrasion of left hand, initial encounter; J44.9 Chronic obstructive pulmonary disease, unspecified; E11.9 Type 2 diabetes mellitus without complications; Z87.891 Personal history of nicotine dependence; Z96.652 Presence of left artificial knee joint; Z88.0 Allergy status to penicillin; Z88.7 Allergy status to serum and vaccine; Z88.2 Allergy status to sulfonamides; Z88.1 Allergy status to other antibiotic agents; Z88.5 Allergy status to narcotic agent; Z79.52 Long term (current) use of systemic steroids; Z79.82 Long term (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; Z79.899 Other long term (current) drug therapy
CPT/HCPCS: 99283; A9270

== ENCOUNTER 2022-12-26 00:41 | Emergency (ER) | payer MEDICARE, OTHER ==
[~2022-12-26] VITALS: Ht 162.6 cm; Wt 58.4 kg
--- OUTSIDE RECORDS SUMMARY | ~2022-12-26 | XMS | Continuity of Care Document ---
Demographics + + + | Address | [address] | | | [place] [address] | + + + | Preferred Language | Unknown | + + + | Marital Status | | + + + | Latter-Day Affiliation | Unknown | + + + | Race | White | + + + | Ethnic Group | Not or | + + + Author + + + | Author | [facility] | + + + | Organization | [facility] | + + + | Address | [address] | | | [place] [address] | + + + | Phone | | + + + Care Team Providers + + + + | Care Invasive Cardiovascular Technologist Name | Role | Phone | + + + + Unavailable | Unavailable | + + + + Allergies No information. Encounters No information. Functional Status No information. Immunizations No information. Medications No information. Problems + + + + | date | description | facility | + + + + | 2022-11-13 10:07 | TYPE 2 DIABETES MELLITUS | [facility] | | | WITHOUT COMPLICATIONS | | + + + + | 2022-11-13 10:07 | OLD MYOCARDIAL INFARCTION | [facility] | + + + + | 2022-11-13 10:07 | UNSPECIFIED ATRIAL | [facility] | | | FIBRILLATION | | + + + + | 2022-11-13 10:07 | CHRONIC OBSTRUCTIVE | [facility] | | | PULMONARY DISEASE, | | | | UNSPECIFIED | | + + + + | 2022-11-13 10:07 | PAIN IN RIGHT SHOULDER | [facility] | + + + + | 2022-11-13 10:07 | ANTERIOR DISLOCATION OF | [facility] | | | RIGHT HUMERUS, INITIAL ENC | | + + + + | 2022-11-13 10:07 | INFERIOR DISLOCATION OF | [facility] | | | RIGHT HUMERUS, INITIAL ENC | | + + + + | 2022-11-13 10:07 | LONG-TERM (CURRENT) USE OF | [facility] | | | ASPIRIN | | + + + + | 2022-11-13 10:07 | AUTO TRANSPORT DRIVER (CURRENT) USE OF | [facility] | | | ORAL HYPOGLYCEMIC DRUGS | | + + + + | 2022-11-13 10:07 | PERSONAL HISTORY OF | [facility] | | | NICOTINE DEPENDENCE | | + + + + | 2022-11-13 10:07 | ALLERGY STATUS TO | [facility] | | | PENICILLIN | | + + + + | 2022-11-13 10:07 | ALLERGY STATUS TO | [facility] | | | SULFONAMIDES STATUS | | + + + + | 2022-11-13 10:07 | ALLERGY STATUS TO NARCOTIC | [facility] | | | AGENT STATUS | | + + + + | 2022-11-13 10:07 | ALLERGY STATUS TO SERUM | [facility] | | | AND VACCINE STATUS | | + + + + | 2022-11-13 10:07 | ALLERGY STATUS TO OTH | [facility] | | | DRUG/MEDS/BIOL SUBST STATUS | | | | | | + + + + | 2022-12-21 18:44 | TYPE 2 DIABETES MELLITUS | [facility] | | | WITHOUT COMPLICATIONS | | + + + + | 2022-12-21 18:44 | CHRONIC OBSTRUCTIVE | [facility] | | | PULMONARY DISEASE, | | | | UNSPECIFIED | | + + + + | 2022-12-21 18:44 | LOCAL INFECTION OF THE | [facility] | | | SKIN AND SUBCUTANEOUS TISSU | | | | | | + + + + | 2022-12-21 18:44 | ABRASION OF LEFT HAND, | [facility] | | | INITIAL ENCOUNTER | | + + + + | 2022-12-21 18:44 | LONG-TERM (CURRENT) USE OF | [facility] | | | SYSTEMIC STEROIDS | | + + + + | 2022-12-21 18:44 | LONG-TERM (CURRENT) USE OF | [facility] | | | ASPIRIN | | + + + + | 2022-12-21 18:44 | OTHER LONG-TERM (CURRENT) | [facility] | | | DRUG THERAPY | | + + + + | 2022-12-21 18:44 | PERSONAL HISTORY OF | [facility] | | | NICOTINE DEPENDENCE | | + + + + | 2022-12-21 18:44 | ALLERGY STATUS TO | [facility] | | | PENICILLIN | | + + + + | 2022-12-21 18:44 | ALLERGY STATUS TO OTHER | [facility] | | | ANTIBIOTIC AGENTS STATUS | | + + + + | 2022-12-21 18:44 | ALLERGY STATUS TO | [facility] | | | SULFONAMIDES STATUS | | + + + + | 2022-12-21 18:44 | ALLERGY STATUS TO NARCOTIC | [facility] | | | AGENT STATUS | | + + + + | 2022-12-21 18:44 | ALLERGY STATUS TO SERUM | [facility] | | | AND VACCINE STATUS | | + + + + | 2022-12-21 18:44 | PRESENCE OF LEFT | [facility] | | | ARTIFICIAL KNEE JOINT | | + + + + Procedures No information. Results/Labs No information. Social History +--------+ + + | date | description | facility | +--------+ + + Vital Signs No information."
--- OUTSIDE RECORDS SUMMARY | ~2022-12-26 | XMS | Continuity of Care Document ---
Demographics + + + | Address | [address] | | | [place] [address] | + + + | Preferred Language | Unknown | + + + | Marital Status | | + + + | Yazidism Affiliation | Unknown | + + + | Race | White | + + + | Ethnic Group | Not or | + + + Author + + + | Author | [facility] | + + + | Organization | [facility] | + + + | Address | [address] | | | [place] [address] | + + + | Phone | | + + + Care Team Providers + + + + | Care Regional Climate Change Analyst Name | Role | Phone | [...] + + + | 2022-11-13 10:07 | SNF (CURRENT) USE OF | [facility] | | | ASPIRIN | | + + + + | 2022-11-13 10:07 | INDUSTRIAL HYGIENE TECHNICIAN (CURRENT) USE OF | [facility] | | [...] + + + | 2022-12-21 18:44 | SNF (CURRENT) USE OF | [facility] | | | SYSTEMIC STEROIDS | | + + + + | 2022-12-21 18:44 | SNF (CURRENT) USE OF | [facility] | | | ASPIRIN | | + + + + | 2022-12-21 18:44 | OTHER SNF (CURRENT) | [facility] | | | DRUG [...]
--- OUTSIDE RECORDS SUMMARY | 2022-12-26 00:47 | XMS ---
PreManage Notification: NATALY SHANNON Security Vulcanized Fiber Unit Operator Events No recent Security Events currently on file CRITERIA MET - [facility] - 2 Visits in 30 Days CARE PROVIDERS MUSTAPHA [facility] 06/14/2020-Current PHONE: Unknown Yolande has no Care Guidelines for this patient. Care History Medical/Surgical 08/02/2020 [facility] - CHW SPOKE WITH PATIENT-DISCUSSED FOLLOW [...] WHEN THE TIME COMES. PATIENT AGREED. 05/31/2019 [facility] Referral for pulmonary rehab received. patient is willing to start as soon as possible. Will schedule this week. E.D. VISIT COUNT (12 MO.) 4 [facility] TOTAL 4 NOTE: Visits indicate total known visits. 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 - snf (current) use of systemic steroids - Other chcf (current) drug therapy - Personal history of nicotine dependence - Presence of left artificial knee joint - Type 2 diabetes mellitus without complications 11/13/2022 10:07 [facility] TYPE: Emergency [...] dislocation of right humerus, initial encounter - truck terminal manager (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 - truck terminal manager (current) use of oral hypoglycemic drugs - [...] to sulfonamides - Atherosclerotic heart disease of [place] coronary artery without angina pectoris - Chronic obstructive pulmonary disease with (acute) exacerbation - Chronic respiratory failure with hypoxia - Contact with and (suspected) exposure to COVID-19 - Essential (primary) hypertension - Gastro-esophageal reflux disease without esophagitis - Hyperlipidemia, unspecified - Hypomagnesemia - truck terminal manager (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
[2022-12-26] MEDS ORDERED: MELOXICAM15 MG PO (00:54)
[2022-12-26 00:56] LABS: HEMATOCRIT 45.3 % (35.0-50.0); HEMOGLOBIN 14.9 g/dL (12.0-18.0); MCH 30.5 (27-36); MCHC 32.8 g/dl (30-36); MCV 92.9 fl (81-99); PLATELET COUNT 315 K/uL (140-440); RBC 4.88 M/ul (4.3-5.7); RDW 14.3 (10.5-15.0)
[2022-12-26 01:10] LABS: BANDS, MANUAL DIFF 1; EOSINOPHILS, MANUAL DIFF 1; LYMPHOCYTES, MANUAL DIFF 53; MONOCYTES, MANUAL DIFF 3; NEUTROPHILS, MANUAL DIFF 42
[2022-12-26 01:18] LABS: ALBUMIN 3.4 g/dL (3.4-5.0); ALBUMIN/GLOBULIN RATIO 0.89 (1.1-2.4); ALCOHOL, MEDICAL <3 ng/dL (<3); ALKALINE PHOSPHATASE 136 U/L (46-116); ALT (SGPT) 20 U/L (14-59); ANION GAP 13.3 (7-21); AST (SGOT) 34 U/L (15-37); BILIRUBIN, TOTAL 0.6 ng/dL (0.2-1.0); BUN/CREATININE RATIO 21.31 (6.0-28.6); CALCIUM 9.5 mg/dL (8.5-10.1); CARBON DIOXIDE 26 mmol/L (21-32); CHLORIDE 102 mmol/L (98-107); CREATININE, SERUM 0.61 mg/dL (0.55-1.02); GLOMERULAR FILTRATION RATE,EST 90 mL/min (>60); MAGNESIUM 1.7 mg/dL (1.8-2.4); POTASSIUM 4.3 mmol/L (3.5-5.1); PROTEIN, TOTAL 7.2 g/dL (6.4-8.2); UREA NITROGEN 13 mg/dL (7-18)
[2022-12-26 01:32] LABS: INFLUENZA B NAA NEGATIVE (NEGATIVE); RESPIRATORY SYNCYTIAL VIR NAA NEGATIVE (NEGATIVE)
[2022-12-26 01:58] LABS: BILIRUBIN, URINE NEGATIVE (negative); BLOOD/HGB, URINE NEGATIVE (Negative); KETONE, URINE NEGATIVE (Negative); LEUK ESTERASE, URINE NEGATIVE (negative); NITRITE, URINE NEGATIVE (negative); PH, URINE 5.5 (5-7)
[2022-12-26 02:44] VITALS: BP 153/83
--- NOTE | 2022-12-26 19:41 | EKG ---
[facility] [address] [facility] [place], [place] [address] Signed Normal sinus rhythm Anteroseptal infarct (cited on or before 13-JUN-2020) Abnormal ECG When compared with ECG of 22-FEB-2022 03:46, premature ventricular complexes are no longer present Confirmed by LIDA AKHTAR MD ([id number]) on 12/26/2022 7:40:52 PM Electronically Signed By: LIDA AKHTAR 12/26/221940 PATIENT NAME: MIRTHANATALYCOBY MADRIGAL Electrocardiogram DATE OF : 44 PHYSICIAN: LIDA AKHTAR REPORT #: [id number] REPORT IS CONFIDENTIAL AND NOT TO BE RELEASED WITHOUT AUTHORIZATION
== END 2022-12-26 02:44 | disposition home or self-care (01) ==
LOC: ED 00:41
PROVIDERS: Internal Medicine
DX: R55 Syncope and collapse (principal); Z20.822 Contact with and (suspected) exposure to COVID-19; J44.9 Chronic obstructive pulmonary disease, unspecified; F43.10 Post-traumatic stress disorder, unspecified; I48.91 Unspecified atrial fibrillation; E11.9 Type 2 diabetes mellitus without complications; Z87.891 Personal history of nicotine dependence; Z88.0 Allergy status to penicillin; Z88.7 Allergy status to serum and vaccine; Z88.2 Allergy status to sulfonamides; Z88.1 Allergy status to other antibiotic agents; Z79.899 Other long term (current) drug therapy; Z88.5 Allergy status to narcotic agent; Z79.82 Long term (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; Z79.84 Long term (current) use of oral hypoglycemic drugs
CPT/HCPCS: 36415; 70450; 70496; 70498; 71045; 80053; 81003; 83735; 83880; 84484; 85025; 85379; 87502; 93005; 93010; 99285-25; C9803; G0480; J2405; J7121; Q9967; U0002

== ENCOUNTER 2023-09-12 10:02 | Emergency (ER) | payer MEDICARE, OTHER ==
[~2023-09-12] VITALS: Ht 162.6 cm; Wt 56.2 kg
[~2023-09-12 10:02] MED LIST changes: +AMITRIPTYLINE H50 MG PO
[2023-09-12] MEDS ORDERED: KETOROLAC TROMETHAMINE 30 MG/ML VIAL IV SCH (11:00)
[2023-09-12 12:20] VITALS: BP 132/92
== END 2023-09-12 12:20 | disposition home or self-care (01) ==
LOC: ED 10:02
DX: M48.54XA Collapsed vertebra, not elsewhere classified, thoracic region, initial encounter for fracture (principal); J06.9 Acute upper respiratory infection, unspecified; J44.9 Chronic obstructive pulmonary disease, unspecified; I50.9 Heart failure, unspecified; E11.9 Type 2 diabetes mellitus without complications; I25.2 Old myocardial infarction; Z79.899 Other long term (current) drug therapy; Z79.84 Long term (current) use of oral hypoglycemic drugs; Z79.82 Long term (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; Z87.891 Personal history of nicotine dependence; Z88.0 Allergy status to penicillin; Z88.7 Allergy status to serum and vaccine; Z88.2 Allergy status to sulfonamides; Z88.5 Allergy status to narcotic agent; Z88.8 Allergy status to other drugs, medicaments and biological substances
CPT/HCPCS: 71045; 96374; 99283-25; J1885

== ENCOUNTER 2023-11-18 08:38 | Emergency (ER) | payer MEDICARE, OTHER ==
[~2023-11-18] VITALS: Ht 162.6 cm; Wt 54.8 kg
[2023-11-18] MEDS ORDERED: CEPHALEXIN MONOHYDRATE 500 MG CAP PO ONE (10:45)
[2023-11-18 10:46] VITALS: BP 22/99
== END 2023-11-18 10:46 | disposition home or self-care (01) ==
LOC: ED 08:38
DX: M70.52 Other bursitis of knee, left knee (principal); J44.9 Chronic obstructive pulmonary disease, unspecified; I50.9 Heart failure, unspecified; E11.9 Type 2 diabetes mellitus without complications; I48.91 Unspecified atrial fibrillation; I25.2 Old myocardial infarction; Z87.891 Personal history of nicotine dependence; Z88.0 Allergy status to penicillin; Z88.7 Allergy status to serum and vaccine; Z88.2 Allergy status to sulfonamides; Z88.8 Allergy status to other drugs, medicaments and biological substances; Z88.5 Allergy status to narcotic agent; Z79.899 Other long term (current) drug therapy; Z79.82 Long term (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; Z79.84 Long term (current) use of oral hypoglycemic drugs
CPT/HCPCS: 73562; 99283; A9270

== ENCOUNTER 2023-11-20 10:00 | Inpatient (IN) | payer MEDICARE, OTHER, MEDICAID ==
[~2023-11-20] VITALS: Ht 162.6 cm; Wt 57.8 kg
[~2023-11-20 10:00] MED LIST changes: +CEPHALEXIN500 M1 PO; +COMBIVENT RESPIM4 GM INH
[2023-11-20 10:35] VITALS: BP 94/68
[2023-11-20] MEDS ORDERED: ACETAMINOPHEN 500 MG TAB PO PRN (11:45)
[2023-11-20] MEDS ORDERED: HYDROmorphone HCL 1 MG/ML SYR IV PRN (11:45)
[2023-11-20] MEDS ORDERED: LACTATED RINGER'S 1,000 ML IV SCH (11:45)
[2023-11-20] MEDS ORDERED: MAGNESIUM HYDROXIDE/AL HYDROX 30 ML CUP PO PRN (11:45)
[2023-11-20] MEDS ORDERED: AMITRIPTYLINE H25 MG PO (11:52)
[2023-11-20] MEDS ORDERED: MAGNESIUM HYDROXIDE 30 ML UDC PO PRN (12:00)
[2023-11-20] MEDS ORDERED: VANCOMYCIN PER PHARMACY PROTOCOL IV PRN (12:00)
[2023-11-20] MEDS ORDERED: VANCOMYCIN HCL 1,250 MG in DEXTROSE 5% 250 ML IV ONE (12:30)
[2023-11-20 12:38] LABS: HEMOGLOBIN 14.8 g/dL (12.0-18.0); MCH 29.8 (27-36); MCHC 32.9 g/dl (30-36); MCV 90.4 fl (81-99); PLATELET COUNT 267 K/uL (140-440); RBC 4.98 M/ul (4.3-5.7); RDW 14.7 (10.5-15.0)
[2023-11-20 12:54] LABS: ALBUMIN 2.8 g/dL (3.4-5.0); ALBUMIN/GLOBULIN RATIO 0.7 (1.1-2.4); ANION GAP 13.8 (7-21); BILIRUBIN, TOTAL 1.2 ng/dL (0.2-1.0); BUN/CREATININE RATIO 16.66 (6.0-28.6); CALCIUM 9.3 mg/dL (8.5-10.1); CREATININE, SERUM 0.66 mg/dL (0.55-1.02); POTASSIUM 3.8 mmol/L (3.5-5.1); PROTEIN, TOTAL 6.8 g/dL (6.4-8.2)
[2023-11-20 12:58] LABS: LYMPHOCYTES, MANUAL DIFF 26; MONOCYTES, MANUAL DIFF 14; NEUTROPHILS, MANUAL DIFF 60
[2023-11-20 12:59] VITALS: BP 113/72
[2023-11-20 13:45] LABS: ERYTHROCYTE SEDIMENTATION RATE 19
--- NOTE | 2023-11-20 14:03 | NUR ---
UR CLINICAL REVIEW: 2MN JOVANNY- MEETS INPT MEDICARE INPT 11/20/23 @ 1135 ORDER MATCHES STATUS NO AUTH REQUIRED PER MEDICARE RULES PLAN TO DC TO HOME WHEN STABLE.
--- NOTE | 2023-11-20 14:11 | NUR ---
PT STATES PAIN HAS DECREASED TO 7/10 AND "FEELS MUCH BETTER" AT THIS TIME. PT STATES NO CURRENT NEEDS, CALL LIGHT WITHIN REACH.
[2023-11-20 15:04] VITALS: BP 113/72
--- NOTE | 2023-11-20 15:05 | NUR ---
MEWS SCORE OF 3 D/T PT'S BASELINE.
--- NOTE | 2023-11-20 15:24 | NUR ---
MED REC COMPLETE
--- NOTE | 2023-11-20 15:30 | NUR ---
PT LYING IN BED AWAKE, REQUESTS DIET CRANBERRY JUICE, GIVEN. PT STATES NO FURTHER NEEDS AT THIS TIME, CALL LIGHT WITHIN REACH.
--- NOTE | 2023-11-20 16:00 | NUR ---
Spoke with Priscila. She states she lives alone in a house with 4 steps. She denies issues getting in or out of the home. She has installed handrails outside and inside her home in multiple placec. She has many pieces of DME, she does not currently use, but has them available. She has family members from her children to great great grand kids. All will help her if needed. Pt states she is low income. She uses [employer] for engery and water assist. She has food stamps and also uses the food bank. Pt drives. She denies other needs and plans on dc to home when cleared medically.
--- NOTE | 2023-11-20 16:32 | NUR ---
PATIENT USED CALL LIGHT TO LET STREET CAR INSPECTOR KNOW THAT SHE HAD TO USE THE BATHROOM. STREET CAR INSPECTOR ASSISTED PATIENT IN USING THE BEDSIDE COMMODE. STREET CAR INSPECTOR CHARTED VOIDINGS ON CHART IN ROOM. CALL LIGHT WITHIN REACH, NO FURTHER NEEDS AT THIS TIME.
--- NOTE | 2023-11-20 17:22 | NUR ---
PT REQUESTS PRN PAIN MEDICATION FOR 9/10 PAIN IN L KNEE, GIVEN. PT STATES NO FURTHER NEEDS AT THIS TIME, CALL LIGHT WITHIN REACH.
--- NOTE | 2023-11-20 17:30 | NUR ---
THIS RN SPEAKS WITH RT ABOUT PT USING HER OWN NC FROM HOME FOR COMFORT, RT ASSISTS WITH CONNECTING EXTENSION FOR NC. PT UP TO [facility], STATES SHE WILL CALL WHEN FINISHED. CALL LIGHT WITHIN REACH.
[2023-11-20 17:56] VITALS: BP 134/77
[2023-11-20] MEDS ORDERED: levalbuterol HCL 1.25 MG/0.5 ML VIAL INH PRN (18:00)
[2023-11-20] MEDS ORDERED: PANTOPRAZOLE SODIUM 40 MG/10 ML VIAL IV SCH (18:00)
[2023-11-20] MEDS ORDERED: ALBUTEROL SULFATE 0.083% 3 ML VIAL INH PRN (18:00)
--- NOTE | 2023-11-20 18:42 | NUR ---
PATIENT IN BED AT THIS TIME. CALL LIGHT WITHIN REACH, NO FURTHER NEEDS AT THIS TIME.
--- NOTE | 2023-11-20 19:29 | NUR ---
SPOKE WITH DR DUNLAP REGARDS WRITTEN ORDER FOR ANCEF JAVA INTEGRATION DEVELOPER TO OR, PT HAS ALLERGY TO PNC. DR DUNLAP STATES TO DISREGARD ANCEF ORDER PT IS ON VANCOMYCIN. NO FURTHERS AT THIS TIME.
--- NOTE | 2023-11-20 19:36 | NUR ---
shift report received from cholo acosta at bedside. pt awake and resting in bed, reddness/edema noted to left knee. iv site wnl, fluids infusing as directed. call light in reach. board updated.
[2023-11-20] MEDS ORDERED: ALBUTEROL/IPRATROPIUM 3 ML NEB INH SCH (20:00)
[2023-11-20] MEDS ORDERED: BUDESONIDE 0.5 MG/2 ML VIAL INH SCH ×2 (20:00→21:00)
[2023-11-20] MEDS ORDERED: IPRATROPIUM BROMIDE 2.5 ML VIAL INH SCH (20:00)
[2023-11-20 20:31] VITALS: BP 148/79
--- NOTE | 2023-11-20 20:34 | NUR ---
CALL LIGHT ANSWERED. PT NEEDED TO USE BAHTROOM. YVETTE 1PA PT TO BS. PY VOIDED. PT THEN ASSISTED BACK TO BED. FISH PEDDLER OBTAINED AND DOCUMENTED VITALS AND I&O. PT GIVEN CRANBERRY JUICE UPON PT REQUEST. PT STATES NO FURTHER NEEDS. CALL LIGHT WITHIN REACH.
--- NOTE | 2023-11-20 20:45 | NUR ---
rt sharona aware of new order for ekg.
--- NOTE | 2023-11-20 20:55 | NUR ---
PT IV ALARMING, RESTARTED, IV PATENT, WNL. PT REQUESTED A PHONE LAMINATION SPINNER, GIVEN;
[2023-11-20] MEDS ORDERED: FLUTICASONE PROPIONATE 50 MCG BTL NAS SCH (21:00)
[2023-11-20] MEDS ORDERED: dilTIAZem HCL 180 MG CAPCR PO SCH (21:00)
[2023-11-20] MEDS ORDERED: AMITRIPTYLINE HCL 25 MG TAB PO SCH (21:00)
[2023-11-20] MEDS ORDERED: VANCOMYCIN HCL 750 MG in DEXTROSE 5% 250 ML IV SCH (21:00)
--- NOTE | 2023-11-20 22:15 | NUR ---
IV ALARMING. ASSESSED SITE, NOTED SWELLING. STOPPED IV, DC'D IV. PRIMARY RN AWARE.
--- NOTE | 2023-11-20 22:26 | NUR ---
CAR DISPATCHER CHECKED PT BLOOD SUGAR AND PRIMARY RN REQUEST. BLOOD SUGAR IS 138. RN NOTIFED. PT STATES NO FURTHER NEEDS AT THIS TIME. CALL LIGHT WITHIN REACH.
--- NOTE | 2023-11-20 22:50 | NUR ---
ASSESSMENT COMPLETE, CURRENT IV INFILTRATED PER CANVAS WORKER APPRENTICE SUKHJINDER. CANVAS WORKER APPRENTICE IN ROOM AND DC'D IV. CCU RN TO COME AND ATTEMPT NEW IV. REDDNESS AND EDEMA REMAINS NOTED TO LEFT KNEE, NO CHANGE COMPARED TO START OF SHIFT. NO FURTHER NEEDS, CALL LIGHT IN REACH.
--- NOTE | 2023-11-20 23:00 | NUR ---
ROUNDED ON pt, CCU RN RANDY AND MARK RECENTLY OUT OF ROOM TO PLACE NEW IV. IV ABX RESUMED AND INFUSING WNL. MANAGER INTERNATIONAL TO ROOM TO ASSIST pt TO BATHROOM. NO ADDITIONAL NEEDS OR CONCERNS.
[2023-11-21] VITALS (12 sets, daily range): BP systolic 94–130; BP diastolic 61–78
--- NOTE | 2023-11-21 00:19 | NUR ---
SCHEDULED IV PROTONIX AND PRN TYLENOL GIVEN-SEE EMAR. pT NPO, PO FLUIDS REMOVED. CALL LIGHT IN REACH.
--- NOTE | 2023-11-21 01:30 | NUR ---
COMMUTATOR OPERATOR CHECKED PT BLOOD SUGAR AT REQUEST OF RN. PT BLOOD SUAGR WAS 133. RN NOTIFED. PT STATES NO NEEDS AT THIS TIME. CALL LIGHT WITHIN REACH.
--- NOTE | 2023-11-21 01:37 | NUR ---
CALL LIGHT ANSWERED. PT NEEDED TO VOID. FACILITIES MECHANICAL DESIGN ENGINEER 1PA TO BSC. PT VOIDED. PT ASSISTED BACK INTO BED. FACILITIES MECHANICAL DESIGN ENGINEER OBTAINED AND DOCUMENTED VITALS AND I&O. PT STATES THAT HER KNEE HURTS AND WOULD LIKE SOME PAIN MEDS. RN NOTIFED. PT STATES NO FURTHER NEEDS AT THIS TIME. CALL LIGHT WITHIN REACH.
--- NOTE | 2023-11-21 01:53 | NUR ---
PRN PAIN MEDICATION AND NEW BAG IV FLUIDS HUNG AND INFUSING DIRECTED, IV SITE WNL. NO CHANGES TO REDDNESS/EDEMA TO LEFT KNEE, RAISED LUMP REMAINS NOTED. CMS REMAINS INTACT. BED ALARM ON FOR SAFETY AND CALL LIGHT IN REACH.
--- NOTE | 2023-11-21 03:42 | NUR ---
CONFIRMED WITH VIVIANE IN LAB THAT MICRO ORDER (ANAEROBIC/AEROBIC/GRAM STAIN IS A WOUND SWAB ORDER. ORDER NOT YET COLLECTED. DISCUSSED WITH PROCUREMENT OFFICER SUKHJINDER, PER PROCUREMENT OFFICER-ORDER TO BE COLLECTED IN THE OR DURING PROCEDURE.
--- NOTE | 2023-11-21 04:20 | NUR ---
ROUNDED ON pt, pt RESTING QUIELTY IN BED, BED ALARM ON FOR SAFETY AND CALL LIGHT IN REACH. RR EVEN AND UNLABORED, NO DISTRESS NOTED. 2LNC REMAINS IN PLACE, IV SITE WNL. INFILTRATION SITE TO LEFT FOREARM CONTINUES TO IMPROVE, NO REDDNESS NOTED. pt DENEIS PAIN AT SITE WHEN ASKED. CALL LIGHT IN REACH.
--- NOTE | 2023-11-21 05:22 | NUR ---
CORRECTIONAL CORPORAL OBTAINED VITALS. PT STATED SHE NEEDED TO USE BATHROOM. CORRECTIONAL CORPORAL 1PA PT TO BSC. PT VOIDED. CORRECTIONAL CORPORAL DOCUMENTED I&O. PT ASSISTED BACK INTO BED. CORRECTIONAL CORPORAL ASSISTED PT WITH CHG WIPEDOWN. PT GIVEN CLEAN GOWN. PT STATED THAT SHE FELT THE NEED TO VOID AGAIN. CORRECTIONAL CORPORAL 1PA TO BSC. PT VOIDED. OUTPUT NOTED. PT WEIGHT OBTAINED AND DOCUMENTED. PT STATES NO FURTHER NEEDS AT THIS TIME. CALL LIGHT PLACED WITHIN REACH.
--- NOTE | 2023-11-21 05:36 | NUR ---
LR WITH STRAIGHT TUBING/EXTENSION SET PRIMED AND READY FOR OR. IV SITE WNL. NO CHANGE TO LEFT KNEE, NO OPEN AREA/SORE NOTED. REDDNESS/LUMP REMAINS UNCHANGED. WILL CONTINUE TO MONITOR. CALL LIGHT IN REACH.
[2023-11-21] MEDS ORDERED: TRANEXAMIC ACID 2,000 MG in SODIUM CHLORIDE 0.9% 100 ML IV SCH (07:00)
[2023-11-21 07:05] LABS: BASOPHILS 0.3 % (0-2); EOSINOPHILS 0.5 % (0-6); HEMATOCRIT 37.7 % (35.0-50.0); HEMOGLOBIN 12.5 g/dL (12.0-18.0); LYMPHOCYTES 22.4 % (24-44); MCHC 33.1 g/dl (30-36); MCV 90.7 fl (81-99); MONOCYTES 17.8 % (0-12); PLATELET COUNT 232 K/uL (140-440); RBC 4.16 M/ul (4.3-5.7); RDW 14.9 (10.5-15.0)
[2023-11-21 07:14] LABS: ALBUMIN 2.3 g/dL (3.4-5.0); ALBUMIN/GLOBULIN RATIO 0.82 (1.1-2.4); ANION GAP 11.7 (7-21); BILIRUBIN, TOTAL 0.8 ng/dL (0.2-1.0); BUN/CREATININE RATIO 13.04 (6.0-28.6); CALCIUM 8.7 mg/dL (8.5-10.1); CREATININE, SERUM 0.46 mg/dL (0.55-1.02); POTASSIUM 3.7 mmol/L (3.5-5.1); PROTEIN, TOTAL 5.1 g/dL (6.4-8.2)
--- NOTE | 2023-11-21 08:01 | NUR ---
per dr palacios, no need for plant protection officer to or order for ancef d/t pt allergy and already on iv vanco. also clarified anaerobic/aerobic/gram stain order-per dr philip urbano to collect in the operating room. primary rn stewart updated and aware.
--- NOTE | 2023-11-21 09:40 | NUR ---
Admin dilauded 0.5mg IV at this time for reports of 8/10 left knee pain. Left knee is red, warm to touch. Patient is awake, alert and oriented x4. Patient aware she is going to surgery this morning with Dr. Delaney. Family at bedside. No needs at this time. Personal supplies and call light within reach.
--- NOTE | 2023-11-21 10:22 | NUR ---
Patient left med surg to surgery dept with transport nurse.
[2023-11-21] MEDS ORDERED: Ropivacaine HCl 0.5% 30 ML VIAL ONE (10:59)
[2023-11-21] MEDS ORDERED: DEXAMETHASONE SOD PHOS 4 MG/ML VIAL ONE ×2 (11:00→11:42)
[2023-11-21] MEDS ORDERED: LIDOCAINE HCL 2% 5 ML SDV ONE (11:00)
[2023-11-21] MEDS ORDERED: propofoL 200 MG/20 ML VIAL ONE (11:00)
[2023-11-21] MEDS ORDERED: BUPIVACAINE 0.75% IN DEXTROSE 2 ML AMP ONE (11:01)
--- NOTE | 2023-11-21 11:07 | NUR ---
THIS MORNING PATIENT WASHED HER FACE AND BRUSHED HER TEETH AROUND 0830.
--- NOTE | 2023-11-21 11:13 | NUR ---
PT GONE FOR PROCEDURE. PROVIDED PRAYER.
--- NOTE | 2023-11-21 12:44 | NUR ---
11/21/23 1244 Ana Alexandra 1220 PT ARRIVED TO PACU ON 2L NC, BASELINE ON 2L AT HOME. PT REACTIVE TO TACTILE STIMULI AND DENIES PAIN AND NAUSEA. 1230 PT SIPPING WATER AND REPORTS "I CAN'T MOVE MY FEET." PT ABLE TO MOVE HER TOES AND SPINAL EDUCATION GIVEN. PLAN OF CARE DISCUSSED.
--- NOTE | 2023-11-21 12:53 | NUR ---
LAB CALLED WITH RESULTS OF PTS GRAM STAIN. RECEIVED REPORT THAT NO ORGANISMS WERE SEEN AND RARE WBC'S. DR. DUNLAP INFORMED VIA TELEPHONE. NO NEW ORDERS RECEIVED.
[2023-11-21] MEDS ORDERED: OXYCODONE HCL 5 MG TAB PO PRN (13:00)
[2023-11-21] MEDS ORDERED: KETOROLAC TROMETHAMINE 15 MG/ML VIAL IV PRN (13:00)
--- NOTE | 2023-11-21 13:11 | NUR ---
Patient to the medical floor. Patient alert/oriented x3, intermittently drowsy, answers questions approp. Left knee has bulky wenceslao wrap-cdi. Pedal pulse intact. Patient able to move toes, she reports numbness to lower exts. Bed alarm intact. Vital signs stable. Patient educated on safety and calling saff, pt reports her understanding.
[2023-11-21] MEDS ORDERED: DEXTROSE 50% 50 ML SYR IV PRN ×2 (13:45)
[2023-11-21] MEDS ORDERED: IBLOOD GLUCOSE TEST STRIP 1 EA TEST XX PRN (13:45)
[2023-11-21] MEDS ORDERED: GLUCAGON,HUMAN RECOMBINANT 1 MG/ML VIAL SUB-Q PRN (13:45)
[2023-11-21] MEDS ORDERED: DEXTROSE 5% 1,000 ML IV PRN (13:45)
[2023-11-21] MEDS ORDERED: ACETAMINOPHEN 500 MG TAB PO SCH (15:00)
--- NOTE | 2023-11-21 15:08 | NUR ---
IN TO ANSWER CALL LIGHT. PT REQUESTING SNACK. DENTURES PROVIDED FOR PT ALONG WITH SANDWICH BOX. PT DENIES ANY OTHER NEEDS AT THIS TIME. CALL LIGHT IN REACH.
--- NOTE | 2023-11-21 15:23 | NUR ---
Patient awake, alert/oriented x4, no distress. Patient eating a snack at this time. Vital signs stable, afebrile. IV patent. Left knee dressing unchanged-cdi dressing.
--- NOTE | 2023-11-21 15:30 | NUR ---
Pt. returned from surgery earlier. Resting with eyes closed. Not awakened.
--- NOTE | 2023-11-21 16:34 | NUR ---
Patient's vital signs are stable, afebrile. Patient reports full sensation in left leg, pain reported 6/10 at this time. Admin oxycodone 10mg po at this time.
[2023-11-21] MEDS ORDERED: INSULIN LISPRO 100 UNIT/ML ML SUB-Q SCH (17:00)
--- NOTE | 2023-11-21 17:32 | NUR ---
Spoke with Priscila. She states she is feeling better, happy to have the hardware out. She states she will be staying one more day and then home. She denies needs.
--- NOTE | 2023-11-21 18:28 | NUR ---
Clarified orders with Dr. Delaney per phone. Patient to have on scd's/alanna hose and heel protectors to both legs.
--- NOTE | 2023-11-21 19:10 | NUR ---
REPORT RECEIVED FROM DAY RN. PATIENT RESTING IN BED. IVF INFUSING WITH NO ISSUES OR CONCERNS. VISUALIZED PATIENT DRESSING TO LEFT KNEE WITH DAY SHIFT RN. DRESSING IS CDI. SARA HOSE IN PLACE, SCD'D IN PLACE AND HEAL PROTECTORS ARE ON. PATIENT DENIES ANY NEEDS AT THIS TIME. CALL LIGHT WITHIN REACH.
--- NOTE | 2023-11-21 19:30 | NUR ---
CALL LIGHT ANSWERED. PT NEEDED TO VOID. CUSTODIAL LABORER 1PA PT TO BSC. CUSTODIAL LABORER INTSTRUCTED PT TO USE CALL LIGHT WHEN FINISHED. CUSTODIAL LABORER PROVIDED PRIVACY. CALL LIGHT ANSWERED. CUSTODIAL LABORER 1PA BACK TO BED. SCDS AND HEEL PROTECTORS BACK ON. PT STATES NO FURTHER NEEDS AT THIS TIME. CALL LIGHT WITHIN REACH.
--- NOTE | 2023-11-21 20:30 | NUR ---
PATIENT RESTING IN BED. LUNGS CTA DIM IN BASES. BOWEL TONES ACTIVE X4. DRESSING TO LEFT KNEE CDI. SARA HOSE IN PLACE BILATERALLY, SCD'S IN PLACE, HEEL PROTECTORS IN PLACE. POSITIVE CMS TO BILATERAL LOWER EXTERMITIES. IV ABX STARTED. VSS. CPOX READINGS WNL, OXYGEN VIA NC AT 2L/MIN. NO FURTHER NEEDS AT THIS TIME. CALL LIGHT WITHIN REACH.
[2023-11-21] MEDS ORDERED: SENNOSIDES 1 TAB PO SCH (21:00)
[2023-11-21] MEDS ORDERED: IBLOOD GLUCOSE TEST STRIP 1 EA TEST VI SCH (21:00)
--- NOTE | 2023-11-21 21:35 | NUR ---
CALL LIGHT ANSWERED. PT NEEDED TO VOID. CHOPPING MACHINE OPERATOR 1PA PT TO [facility]. PT GIVEN CALL LIGHT FOR WHEN FINISHED AND CHOPPING MACHINE OPERATOR PROVIDED PRIVACY. PT USEDE CALL WHEN DONE. PT ASSISTED BACK TO BED. CHOPPING MACHINE OPERATOR NOTED OUTPUT AND RECONNECTED SCDS AND PLACED HEEL PROTECTORS BACK ON. PT STATES NO FURTHER NEEDS AT THIS TIME. CALL LIGHT PLACED WITHIN REACH.
--- NOTE | 2023-11-21 23:14 | NUR ---
CALL LIGHT ANSWERED. PT NEEDED TO VOID. PRODUCTION METAL SPRAYER 1PA TO BSC. PT GIVEN CALL LIGHT AND PRODUCTION METAL SPRAYER PROVIDED PRIVACY. CALL LIGHT ANSWERED. PT ASSISTED BACK TO BED. SCDS AND HEEL PROTECTORS ON. OUTPUT NOTED AND BSC EMPTIED. PT GIVEN FRESH ICE WATER AND CRACKERS REQUESTED BY PT. PT STATES NO FURTHER NEEDS AT THIS TIME. CALL LIGHT WITHIN REACH.
[2023-11-22] VITALS (9 sets, daily range): BP systolic 104–129; BP diastolic 51–70
--- NOTE | 2023-11-22 00:09 | NUR ---
PATIENT RESTING IN BED WITH EYES CLOSED. RESPIRATIONS EVEN AND UNLABORED. IVF INFUSING WITH NO ISSUES OR CONCERNS. SCDS REMAIN IN PLACE WITH HEEL PROTECTORS AND SARA HOSE. CALL LIGHT WITHIN REACH.
--- NOTE | 2023-11-22 01:17 | NUR ---
CALL LIGHT ANSWERED. PT NEEDED TO VOID. TARIFF PUBLISHING AGENT 1PA TO BS. PT GIVEN CALL LIGHT AND TARIFF PUBLISHING AGENT PROVIDED PRIVACY. CALL LIGHT ANSWERED. PT ASSISTED BACK TO BED. OUTPUT MEASURED. SCDS AND HEEL PROTECTORS BACK ON. TARIFF PUBLISHING AGENT OBTAINED AND DOCUMETNED VITALS AND I&O. PT GIVEN FRESH WATER UPON REQUEST. PT STATES NO FURTHER NEEDS AT THIS TIME. CALL LIGHT PLACED WITHIN REACH.
--- NOTE | 2023-11-22 01:41 | NUR ---
CALL LIGHT ANSWERED. PT NEEDED TO USE BATHROOM. DESIGN CHIEF 1PA PT TO [facility]. PT GIVEN CALL LIGHT FOR WHEN FINISHED. DESIGN CHIEF PROVIDED PRIVACY. CALL LIGHT ANSWERED. PT ASSISTED BACK TO BED. OUTPUT NOTED. SCDS AND HEEL PROTECTORS BACK ON. PT STATES NO FURTHER NEEDS AT THIS TIME. CALL LIGHT WITHIN REACH.
--- NOTE | 2023-11-22 02:48 | NUR ---
rounded on pt, pt awake and resting in bed, 2lnc in place. pt watching tv, reports recent nightmare. therapeutic communication provided and pt left resting in bed, no needs or concerns verbalized. iv site wnl.
--- NOTE | 2023-11-22 03:37 | NUR ---
CALL LIGHT ANSWERED. PT NEEDED TO USE BATHROOM. FIREWORKS ASSEMBLY SUPERVISOR 1PA PT TO BS. PT GIVEN CALL LIGHT AND FIREWORKS ASSEMBLY SUPERVISOR PROVIDED PRIVACY. PT USED CALL LIGHT WHEN DONE. PT ASSISTED BACK TO BED. SCDS AND HEEL PROTECTORS BACK IN PLACE AND ON. OUTPUT MEASURED. PT STATES NO FURTHER NEEDS AT THIS TIME. CALL LIGHT WITHIN REACH.
[2023-11-22 05:15] LABS: BASOPHILS 0.7 % (0-2); HEMATOCRIT 36.2 % (35.0-50.0); HEMOGLOBIN 11.7 g/dL (12.0-18.0); LYMPHOCYTES 5.7 % (24-44); MCH 29.4 (27-36); MCHC 32.2 g/dl (30-36); MCV 91.2 fl (81-99); NEUTROPHILS 91.6 % (39-80); PLATELET COUNT 249 K/uL (140-440); RBC 3.97 M/ul (4.3-5.7); RDW 14.9 (10.5-15.0)
[2023-11-22 05:29] LABS: ALBUMIN 2.2 g/dL (3.4-5.0); ALBUMIN/GLOBULIN RATIO 0.65 (1.1-2.4); ANION GAP 11.1 (7-21); BILIRUBIN, TOTAL 0.3 ng/dL (0.2-1.0); BUN/CREATININE RATIO 11.42 (6.0-28.6); CALCIUM 9.2 mg/dL (8.5-10.1); CREATININE, SERUM 0.7 mg/dL (0.55-1.02); POTASSIUM 4.1 mmol/L (3.5-5.1); PROTEIN, TOTAL 5.6 g/dL (6.4-8.2)
--- NOTE | 2023-11-22 05:35 | NUR ---
PATIENT RESTING IN BED. OXYGEN IN PLACE CPOX READINGS WNL. VSS. PATIENT OOB TO OBTAIN STANDING WEIGHT. NEW BAG OF IVF HUNG AT THIS TIME. DENIES ANY PAIN OR DISCOMFORT. DRESSING TO LEFT KNEE REMAINS CDI. SARA HOSE IN PLACE, SCD'S IN PLACE, AND HEEL PROTECTORS IN PLACE. IV SITE PATENT. NO FURTHER NEEDS AT THIS TIME. CALL LIGHT WITHIN REACH.
--- NOTE | 2023-11-22 07:33 | OR ---
[facility] [address], [place] [address] Signed DATE OF OPERATION: 11/21/2023 SURGEON: Kira Delaney MD PREOPERATIVE DIAGNOSIS: Painful hardware left knee with abscess. POSTOPERATIVE DIAGNOSIS: Painful hardware left knee with abscess. PROCEDURE PERFORMED: Removal of hardware, left knee with excision of infected bursa. PAPER SAMPLE CLERK: None. ANESTHESIA: Spinal. BLOOD LOSS: 100 mL. TOURNIQUET TIME: Zero. BRIEF HISTORY: Priscila is an 83-year-old female, who had a fracture of her patella and underwent open reduction and internal fixation with standard AO wire technique. This healed uneventfully, however, as she lost weight, she developed a bursa over one of the wire knots. This became infected earlier in the week. She presented to our office yesterday and was felt to be a good candidate for admission to the hospital. She was admitted and placed on IV antibiotics. The wire was intermittently poking through the skin. Risks, benefits, and alternatives of were discussed with her and she elected to proceed. DESCRIPTION OF OPERATION: Once consent was obtained, she was brought to the operating room, placed on the operating room table. All downside pressure points were well padded. The leg was prepped and draped in a standard sterile fashion. The previous incision was marked out and about 2/3rd of it was used to access the wiring. The skin was incised Electronically Signed By: KIRA DELANEY MD 11/22/23 0733 PATIENT NAME: MIRTHA,PRISCILA KAITLIN OPERATIVE REPORT DATE OF : 44 REPORT #: [id number] PHYSICIAN: KIRA DELANEY MD PCP: KRYSTYNA LUCIANO MD REPORT IS CONFIDENTIAL AND NOT TO BE RELEASED WITHOUT AUTHORIZATION [facility] [address] [place] [id number] Signed longitudinally and skin flaps were developed medially and laterally. The two longitudinal K-wires were removed first followed by the wire, which was cut into segments and removed as atraumatically as possible. The bursa was then removed that was overlying the lateral wire . The bursal tissue and infected tissue was cultured and was excised completely. The tissue was then cleaned thoroughly and irrigated with Surgiphor followed by normal saline. The skin was then closed using 2-0 Monocryl for the subcu and stephie for the skin. The wound was dressed with Acticoat, ABDs and Tejas wrap. She tolerated the procedure well. All sponge, needle, and instrument counts were correct. Kira Delaney MD BA/JON /[id number] Copies: ~ Electronically Signed By: KIRA DELANEY MD 11/22/23 0733 PATIENT NAME: PRISCILA SHANNON OPERATIVE REPORT DATE OF : 44 REPORT #: [id number] PHYSICIAN: KIRA DELANEY MD PCP: KRYSTYNA LUCIANO MD REPORT IS CONFIDENTIAL AND NOT TO BE RELEASED WITHOUT AUTHORIZATION
--- NOTE | 2023-11-22 08:00 | NUR ---
AFTER DOING HER BLOOD SUGAR CHECK. PATIENT NEEDED TO GET UP AND USE THE BEDSIDE COMMODE. SHE DIDN'T WANT ME IN THE ROOM WHILE SHE WAS ON THE COMMODE BABY WIPES WERE CLOSE AND SO WAS THE CALL LIGHT. THAN WE WALKED TO HER CHAIR FOR BREAKFAST. BED LINENS CHANGED. FEET ELEVATED.
[2023-11-22 09:13] LABS: VANCOMYCIN, TROUGH 10.6 ug/mL (5.0-20.0)
--- NOTE | 2023-11-22 09:55 | NUR ---
Patient sitting up in chair, alert and oriented x4. Patient reports pain is 0/10 at this time. Left knee dressing is CDI, cms intact. IV abx infusing at this time. Patient worked with physical therapy this morning, pt reports she tolerated that well. No current needs at this time, personal supplies and call light within reach.
--- NOTE | 2023-11-22 11:10 | NUR ---
IN YVETTE CAMERON ALERTS THIS RN THAT PTs IV SITE MAY BE LEAKING AND PT IS REPORTING GOWN IS "WET" NEAR SITE. THIS RN ASSESSES IV SITE, LEAKING NOTED. IV REMOVED WNL, SEE VASCULAR ACCESS. GAUZE AND COBAN PLACED OVER SITE. PT EDUCATED ON SITE CARE. NEW IV PLACED IN PTs LEFT FOREARM, 3 ATTEMPTS, SEE VASCULAR ACCESS. PT TOLERATES WELL. PT SITTING UP IN RECLINER. IV INFUSING WNL. PT DENIES ANY OTHER NEEDS AT THIS TIME. CALL LIGHT IN REACH.
--- NOTE | 2023-11-22 11:39 | EKG ---
[facility] [address] [facility] [place], [place] [address] Signed Sinus rhythm with occasional premature ventricular complexes Anteroseptal infarct (cited on or before 13-JUN-2020) Abnormal ECG When compared with ECG of 10-NOV-2023 20:51, premature ventricular complexes are now present Questionable change in initial forces of Anterior leads Confirmed by James Shin ([id number]) on 11/22/2023 11:39:38 AM Electronically Signed By: JAMES SHIN MD 11/22/23 1139 PATIENT NAME: NATALY SHANNON Electrocardiogram DATE OF : 44 PHYSICIAN: JAMES SHIN MD REPORT #: [id number] REPORT IS CONFIDENTIAL AND NOT TO BE RELEASED WITHOUT AUTHORIZATION
--- NOTE | 2023-11-22 12:19 | NUR ---
Patient sitting up in recliner, alert/oriented x4, no distress. Patient on 2L oxygen per nc, respirations non labored, spo2 92%. Patient reports her pain is tolerable at this time. Left knee dressing remains CDI. Patient denies needs at this time. Personal supplies and call light within reach.
--- NOTE | 2023-11-22 15:26 | NUR ---
Patient declined to take her scheduled tylenol. Patient denies having pain to Left leg.
--- NOTE | 2023-11-22 16:09 | NUR ---
IN TO ANSWER CALL LIGHT. PT SITTING UP IN RECLINER REQUESTING TOILETING AND TO GO TO BED. SBA WITH CANE FROM RECLINER TO RESTROOM. PT AMBULATES WITH A SLOW STEADY GIAT. VOID NOTED. SBA FROM RESTROOM TO BED. PT IN BED. PT DECLINES HEEL PROTECTORS OR SCDs AT THIS TIME. PT PLACED BACK ON CPOX. PT DENIES ANY OTHER NEEDS AT THIS TIME. CALL LIGHT IN REACH.
--- NOTE | 2023-11-22 20:57 | NUR ---
PT AWAKE, ALERT AND ORIENTED, ON 2LNC, LUNGS DIM AT BASES, MOIST NON PRODUCTIVE COUGH PRESENT. SL LAC PATENT. ABD DISTENDED, TIERRA, DECLINED SENOKOT TABS. L LEG W AMRITA WRAP DRESSING, SCDS AND TEDHOSE BILAT, GOOD CMS. HELPS WITH TURNING AND REPOSITONING, MEDICATED IWTH TYLENOL PER SCHEDULED PAIN MED,
[2023-11-22] MEDS ORDERED: ATORVASTATIN 40 MG TAB PO SCH (21:00)
--- NOTE | 2023-11-22 21:25 | NUR ---
call light answered, pt already sitting back in bed from bsc. personal belongings and call light in reach. pt voided 400mls. iv site wnl, iv abx infusing. pt denies additional needs or concerns and left resting in bed with chronic 2lnc in place-watching tv. scd's in place.
--- NOTE | 2023-11-22 23:21 | NUR ---
Patient called and requested a new, dry gown because of sweat. Brought her a new gown and assisted her in putting it on and also replaced pillow case and draw sheet. Assited back to bed and covered her up and placed call light within reach.
--- NOTE | 2023-11-23 00:32 | NUR ---
resting, eyes closed, o2 2lnc, cpox at bedside wnl, pt repositioned and turned self, dressing l leg, scds in place
--- NOTE | 2023-11-23 01:52 | NUR ---
Used call light, awake, O2 22LNC, up to BRP, voided, back to bed, tolerated well, SBA. dressing L knee intact, tedhose and scds bilat in place, helped repositioned, no c/o pain. no sob noted with exertion. moist back, dried, clean goen and bed linen changed. afebrile. Cooperative with second assessment
[2023-11-23 02:29] VITALS: BP 121/67
[2023-11-23 05:35] LABS: BASOPHILS 0.3 % (0-2); HEMATOCRIT 37.2 % (35.0-50.0); HEMOGLOBIN 12.1 g/dL (12.0-18.0); LYMPHOCYTES 8.5 % (24-44); MCH 29.5 (27-36); MCHC 32.5 g/dl (30-36); MONOCYTES 6.7 % (0-12); NEUTROPHILS 84.5 % (39-80); PLATELET COUNT 267 K/uL (140-440); RBC 4.09 M/ul (4.3-5.7); RDW 14.8 (10.5-15.0)
[2023-11-23 05:55] LABS: ALBUMIN 2.2 g/dL (3.4-5.0); ALBUMIN/GLOBULIN RATIO 0.67 (1.1-2.4); ANION GAP 12.7 (7-21); BILIRUBIN, TOTAL 0.2 ng/dL (0.2-1.0); BUN/CREATININE RATIO 18.18 (6.0-28.6); CALCIUM 9.1 mg/dL (8.5-10.1); CREATININE, SERUM 0.55 mg/dL (0.55-1.02); POTASSIUM 3.7 mmol/L (3.5-5.1); PROTEIN, TOTAL 5.5 g/dL (6.4-8.2)
[2023-11-23 06:13] VITALS: BP 124/69
[2023-11-23 06:17] VITALS: BP 124/69
--- NOTE | 2023-11-23 06:28 | NUR ---
used call light, Up to BRP, voided, did own am care and brushed teeth. Back to bed, takes O2 off when walking to brp, no sob noted. O2 back on. tolerated well, no c/o pain, SBA. Dressing L knee CDI, SCDS, alanna hose on bilat. SL patent. tolerating liquids well, no n/v. Daily standing weight 57.8KG.
--- NOTE | 2023-11-23 07:45 | NUR ---
Assisted Pt 1PA with cane on L side from bed to bathroom on bedside commode and back. Provided fresh ice water. Call lght left in reach. No other needs expressed by Pt.
--- NOTE | 2023-11-23 07:54 | NUR ---
PT RESTING EYES CLOSED AT TIME OF SHIFT REPORT, LEFT UNDISTURBED. AWAKE NOW DOING A BREATHING TREATMENT AGREES SHE IS COMFORTABLE DENIES NEEDS OF.
[2023-11-23] MEDS ORDERED: PANTOPRAZOLE SODIUM 40 MG TABEC PO SCH (09:00)
[2023-11-23] MEDS ORDERED: CEFUROXIME500 MG PO (09:29)
--- NOTE | 2023-11-23 10:16 | NUR ---
PT UP TO THE CHAIR FOR MORNING MEAL CONTINUES THERE AT THIS TIME. DR CHESTER IN TO SEE HER PT AGREES SHE IS READY TO DC. DENIES QUESTIONS OR CONCERNS
[2023-11-23 10:47] VITALS: BP 138/80
== END 2023-11-23 11:15 | disposition home or self-care (01) | DRG 495 ==
LOC: MS 10:00
PROVIDERS: Family Medicine; Physician Assistant; ADMIT Specialist; ATTEND Specialist
PROC: 3E03329 Introduction of Other Anti-infective into Peripheral Vein, Percutaneous Approach (ICD-10-PCS; 2023-11-20)
PROC: 0MBP0ZZ Excision of Left Knee Bursa and Ligament, Open Approach (ICD-10-PCS; 2023-11-21)
PROC: 0QPF04Z Removal of Internal Fixation Device from Left Patella, Open Approach (ICD-10-PCS; principal; 2023-11-21 10:45)
DX: T84.69XA Infection and inflammatory reaction due to internal fixation device of other site, initial encounter (principal); A41.9 Sepsis, unspecified organism; J96.11 Chronic respiratory failure with hypoxia; M71.062 Abscess of bursa, left knee; J44.9 Chronic obstructive pulmonary disease, unspecified; I10 Essential (primary) hypertension; E78.5 Hyperlipidemia, unspecified; K21.9 Gastro-esophageal reflux disease without esophagitis; F39 Unspecified mood [affective] disorder; G43.909 Migraine, unspecified, not intractable, without status migrainosus; E11.9 Type 2 diabetes mellitus without complications; Z87.891 Personal history of nicotine dependence; Z88.0 Allergy status to penicillin; Z99.81 Dependence on supplemental oxygen; Z86.711 Personal history of pulmonary embolism; Z88.2 Allergy status to sulfonamides; Z88.7 Allergy status to serum and vaccine; Z88.8 Allergy status to other drugs, medicaments and biological substances; Z88.5 Allergy status to narcotic agent; Z88.1 Allergy status to other antibiotic agents; Z79.83 Long term (current) use of bisphosphonates; Z79.82 Long term (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; Z79.51 Long term (current) use of inhaled steroids; Z79.84 Long term (current) use of oral hypoglycemic drugs; Z79.1 Long term (current) use of non-steroidal anti-inflammatories (NSAID)
CPT/HCPCS: 01400; 36415; 64447; 76942; 80053; 80202; 85025; 85651; 86140; 87070; 87075; 87205; 93005; 93010; 94640; 94760; 97110; 97116; 97162; A9270; J1100; J1170; J1815; J2001; J2470; J2704; J2795; J3370; J7060; J7121

== ENCOUNTER 2024-01-13 14:52 | Emergency (ER) | payer MEDICARE, OTHER, MEDICAID ==
[~2024-01-13] VITALS: Ht 162.6 cm; Wt 56.5 kg
[~2024-01-13 14:52] MED LIST changes: +CEFUROXIME500 MG PO
[2024-01-13 16:11] LABS: BILIRUBIN, URINE NEGATIVE (negative); BLOOD/HGB, URINE NEGATIVE (Negative); KETONE, URINE NEGATIVE (Negative); LEUK ESTERASE, URINE SMALL (negative); NITRITE, URINE NEGATIVE (negative)
[2024-01-13 16:19] LABS: RED BLOOD CELLS, URINE 0-1 /hpf (0-5)
[2024-01-13 16:20] LABS: BASOPHILS 1.5 % (0-2); EOSINOPHILS 1.9 % (0-6); EPITHELIAL CELLS, URINE SQUAMOUS 1+ /lpf (0-1+); HEMATOCRIT 44.5 % (35.0-50.0); HEMOGLOBIN 14.9 g/dL (12.0-18.0); LYMPHOCYTES 42.1 % (24-44); MCH 30.7 (27-36); MCHC 33.5 g/dl (30-36); MCV 91.7 fl (81-99); MONOCYTES 8.8 % (0-12); NEUTROPHILS 45.7 % (39-80); RBC 4.85 M/ul (4.3-5.7); RDW 15.3 (10.5-15.0)
[2024-01-13 16:22] LABS: REFLEX CULTURE, URINE Yes (No)
[2024-01-13 16:32] LABS: ALBUMIN 3.5 g/dL (3.4-5.0); ALBUMIN/GLOBULIN RATIO 0.95 (1.1-2.4); ANION GAP 11.3 (7-21); BILIRUBIN, TOTAL 0.4 ng/dL (0.2-1.0); BUN/CREATININE RATIO 18.29 (6.0-28.6); CALCIUM 9.4 mg/dL (8.5-10.1); CREATININE, SERUM 0.82 mg/dL (0.55-1.02); POTASSIUM 4.3 mmol/L (3.5-5.1); PROTEIN, TOTAL 7.2 g/dL (6.4-8.2)
[2024-01-13 17:07] VITALS: BP 123/90
== END 2024-01-13 17:09 | disposition home or self-care (01) ==
LOC: ED 14:52
PROVIDERS: Emergency Medicine
DX: E11.9 Type 2 diabetes mellitus without complications (principal); J44.9 Chronic obstructive pulmonary disease, unspecified; I25.2 Old myocardial infarction; I50.9 Heart failure, unspecified; Z87.891 Personal history of nicotine dependence; Z96.659 Presence of unspecified artificial knee joint; Z96.649 Presence of unspecified artificial hip joint; Z88.0 Allergy status to penicillin; Z88.2 Allergy status to sulfonamides; Z88.7 Allergy status to serum and vaccine; Z88.5 Allergy status to narcotic agent; Z88.1 Allergy status to other antibiotic agents; Z88.8 Allergy status to other drugs, medicaments and biological substances; Z79.899 Other long term (current) drug therapy; Z79.82 Long term (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; Z79.84 Long term (current) use of oral hypoglycemic drugs
CPT/HCPCS: 36415; 80053; 81001; 85025; 85060; 87088; 99284

== ENCOUNTER 2024-03-06 03:25 | Emergency (ER) | payer MEDICARE, OTHER, MEDICAID ==
[~2024-03-06] VITALS: Ht 162.6 cm; Wt 56.0 kg
[2024-03-06] MEDS ORDERED: HYDROCODONE/ACETA 7.5/325 TAB PO ONE (03:30)
[2024-03-06] MEDS ORDERED: HYDROCODONE BIT/ACETAMINOPHEN 5/325 MG 1 TAB HOME.PACK PO ONE (04:30)
[2024-03-06] MEDS ORDERED: LIDODERM1 EACH TOP (04:33)
[2024-03-06] MEDS ORDERED: LIDOCAINE HCL 4% 1 EACH PATCH TD ONE (04:45)
[2024-03-06 05:07] VITALS: BP 152/73
[2024-03-06] MEDS ORDERED: LIDOCAINE PATCH REMOVAL 1 EA TD SCH (21:00)
== END 2024-03-06 05:07 | disposition home or self-care (01) ==
LOC: ED 03:25
DX: M48.56XA Collapsed vertebra, not elsewhere classified, lumbar region, initial encounter for fracture (principal); J44.9 Chronic obstructive pulmonary disease, unspecified; E11.9 Type 2 diabetes mellitus without complications; I50.9 Heart failure, unspecified; Z87.891 Personal history of nicotine dependence; Z88.0 Allergy status to penicillin; Z88.2 Allergy status to sulfonamides; Z88.7 Allergy status to serum and vaccine; Z88.5 Allergy status to narcotic agent; Z88.1 Allergy status to other antibiotic agents; Z79.82 Long term (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; Z79.84 Long term (current) use of oral hypoglycemic drugs
CPT/HCPCS: 72131; 99284-25; A9270

== ENCOUNTER 2024-05-11 12:32 | Emergency (ER) | payer MEDICARE, OTHER, MEDICAID ==
[~2024-05-11] VITALS: Ht 162.6 cm; Wt 51.7 kg
[~2024-05-11 12:32] MED LIST changes: +LIDODERM1 EACH TOP
[2024-05-11] MEDS ORDERED: ondansetron HCL 4 MG/2 ML VIAL IV ONE ×2 (12:45→13:00)
[2024-05-11 12:53] LABS: HEMATOCRIT 45.3 % (35.0-50.0); MCH 30.8 (27-36); MCHC 33.1 g/dl (30-36); MCV 92.9 fl (81-99); PLATELET COUNT 242 K/uL (140-440); RBC 4.87 M/ul (4.3-5.7); RDW 15.6 (10.5-15.0)
[2024-05-11] MEDS ORDERED: GUAIFENESIN 10 ML UNIT DOSE CUP PO ONE (13:00)
[2024-05-11 13:12] LABS: BANDS, MANUAL DIFF 3; LYMPHOCYTES, MANUAL DIFF 34; MONOCYTES, MANUAL DIFF 18; NEUTROPHILS, MANUAL DIFF 45
[2024-05-11 13:15] LABS: ALBUMIN 3.1 g/dL (3.4-5.0); ALBUMIN/GLOBULIN RATIO 0.86 (1.1-2.4); ANION GAP 14.7 (7-21); BILIRUBIN, TOTAL 0.3 ng/dL (0.2-1.0); BUN/CREATININE RATIO 22.38 (6.0-28.6); CALCIUM 8.9 mg/dL (8.5-10.1); CREATININE, SERUM 0.67 mg/dL (0.55-1.02); MAGNESIUM 1.6 mg/dL (1.8-2.4); POTASSIUM 3.7 mmol/L (3.5-5.1); PROTEIN, TOTAL 6.7 g/dL (6.4-8.2)
[2024-05-11 13:23] LABS: CORONAVIRUS COVID-19 AG POSITIVE (NEGATIVE); INFLUENZA A AG NEGATIVE (NEGATIVE); INFLUENZA B AG NEGATIVE (NEGATIVE)
[2024-05-11] MEDS ORDERED: MAGNESIUM SULFATE 2 GM/50 ML BAG IV ONE (14:00)
[2024-05-11] MEDS ORDERED: PREDNISONE20 MG PO (14:58)
[2024-05-11] MEDS ORDERED: BENZONATATE100 MG PO (14:58)
[2024-05-11 15:08] VITALS: BP 110/73
--- NOTE | 2024-05-11 18:17 | EKG ---
[facility] [address] [facility] [place] [address] Signed Sinus tachycardia with occasional premature ventricular complexes Left axis deviation Possible Anterior infarct (cited on or before 13-JUN-2020) Abnormal ECG When compared with ECG of 20-NOV-2023 21:24, Questionable change in initial forces of Anterior leads T wave inversion no longer evident in Lateral leads Confirmed by Eleazar Nunez MD ([id number]) on 05/11/2024 6:17:25 PM Electronically Signed By: ELEAZAR NUNEZ MD 05/11/24 181 PATIENT NAME: NATALY SHANNON Electrocardiogram DATE OF : 44 PHYSICIAN: ELEAZAR NUNEZ MD REPORT #: [id number] REPORT IS CONFIDENTIAL AND NOT TO BE RELEASED WITHOUT AUTHORIZATION
== END 2024-05-11 15:08 | disposition home or self-care (01) ==
LOC: ED 12:32
PROVIDERS: Emergency Medicine
DX: U07.1 COVID-19 (principal); J96.10 Chronic respiratory failure, unspecified whether with hypoxia or hypercapnia; E83.42 Hypomagnesemia; J44.9 Chronic obstructive pulmonary disease, unspecified; I25.2 Old myocardial infarction; I25.10 Atherosclerotic heart disease of native coronary artery without angina pectoris; I50.9 Heart failure, unspecified; E11.9 Type 2 diabetes mellitus without complications; I48.91 Unspecified atrial fibrillation; Z87.891 Personal history of nicotine dependence; Z86.711 Personal history of pulmonary embolism; Z88.0 Allergy status to penicillin; Z88.2 Allergy status to sulfonamides; Z88.7 Allergy status to serum and vaccine; Z88.5 Allergy status to narcotic agent; Z88.1 Allergy status to other antibiotic agents; Z79.51 Long term (current) use of inhaled steroids; Z79.82 Long term (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; Z79.83 Long term (current) use of bisphosphonates; Z79.899 Other long term (current) drug therapy
CPT/HCPCS: 36415; 71045; 80053; 83735; 83880; 84484; 85025; 93005; 93010; 96365; 96375; 99285-25; J2405; J3475

== ENCOUNTER 2024-09-17 19:14 | Emergency (ER) | payer MEDICARE, OTHER, MEDICAID ==
[~2024-09-17] VITALS: Ht 162.6 cm; Wt 54.0 kg
[2024-09-17 20:23] VITALS: BP 130/90
[2024-09-17] MEDS ORDERED: DOXYCYCLINE HYCLATE 100 MG HOME.PACK PO ONE (20:30)
== END 2024-09-17 20:32 | disposition home or self-care (01) ==
LOC: ED 19:14
DX: S81.812A Laceration without foreign body, left lower leg, initial encounter (principal); L08.9 Local infection of the skin and subcutaneous tissue, unspecified; J44.9 Chronic obstructive pulmonary disease, unspecified; F43.10 Post-traumatic stress disorder, unspecified; I50.9 Heart failure, unspecified; E11.9 Type 2 diabetes mellitus without complications; I48.91 Unspecified atrial fibrillation; Z87.891 Personal history of nicotine dependence; Z88.0 Allergy status to penicillin; Z88.2 Allergy status to sulfonamides; Z88.7 Allergy status to serum and vaccine; Z88.5 Allergy status to narcotic agent; Z79.899 Other long term (current) drug therapy; X58.XXXA Exposure to other specified factors, initial encounter
CPT/HCPCS: 99282; A9270

== ENCOUNTER 2024-10-05 15:39 | Emergency (ER) | payer MEDICARE, OTHER, MEDICAID ==
[~2024-10-05] VITALS: Ht 162.6 cm; Wt 54.0 kg
[2024-10-05] MEDS ORDERED: COMBIVENT RESPIM4 GM INH (16:00)
[2024-10-05] MEDS ORDERED: DILTIAZEM ER180 MG PO (16:01)
[2024-10-05] MEDS ORDERED: POTASSIUM CHLO10 ME1 PO (16:01)
[2024-10-05] MEDS ORDERED: FUROSEMIDE20 MG PO (16:01)
[2024-10-05 16:04] LABS: BASOPHILS 0.2 % (0.1-1.2); EOSINOPHILS 0.9 % (0.7-5.8); LYMPHOCYTES 33.1 % (19.3-51.7); MCH 29.6 PG (25.6-32.2); MCHC 32.9 g/dL (32.2-35.5); MCV 90.0 fL (79.4-94.8); MONOCYTES 11.2 % (4.7-12.5); NEUTROPHILS 54.3 % (34.0-71.1); RBC 4.49 M/uL (3.93-5.22)
[2024-10-05 16:27] LABS: ALT (SGPT) 26.0 U/L (14-59); AST (SGOT) 27.0 U/L (15-37); GLOMERULAR FILTRATION RATE,EST 71.0 mL/min (>60); PROTEIN, TOTAL 6.3 g/dL (6.4-8.2); UREA NITROGEN 17.0 mg/dL (7-18)
--- NOTE | 2024-10-05 16:40 | EKG ---
[facility] [address] [facility] [place] [address] Signed Normal sinus rhythm Left axis deviation Inferior infarct , age undetermined Anteroseptal infarct (cited on or before 13-JUN-2020) Abnormal ECG When compared with ECG of 11-MAY-2024 12:35, premature ventricular complexes are no longer present Questionable change in initial forces of Anteroseptal leads ST no longer depressed in Inferior leads Nonspecific T wave abnormality now evident in Anterolateral leads Confirmed by Eleazar Nunez MD ([id number]) on 10/05/2024 4:40:08 PM Electronically Signed By: ELEAZAR NUNEZ MD 10/05/24 1640 PATIENT NAME: NATALY SHANNON Electrocardiogram DATE OF : 44 PHYSICIAN: ELEAZAR NUNEZ MD REPORT #: [id number] REPORT IS CONFIDENTIAL AND NOT TO BE RELEASED WITHOUT AUTHORIZATION
[2024-10-05 17:01] LABS: BLOOD/HGB, URINE NEGATIVE (Negative); KETONE, URINE NEGATIVE (Negative); LEUK ESTERASE, URINE NEGATIVE (negative); NITRITE, URINE NEGATIVE (negative)
[2024-10-05 17:43] VITALS: BP 115/71
== END 2024-10-05 17:50 | disposition home or self-care (01) ==
LOC: ED 15:39
PROVIDERS: Emergency Medicine
DX: R53.1 Weakness (principal); J44.9 Chronic obstructive pulmonary disease, unspecified; I25.10 Atherosclerotic heart disease of native coronary artery without angina pectoris; Z95.5 Presence of coronary angioplasty implant and graft; I48.91 Unspecified atrial fibrillation; E11.9 Type 2 diabetes mellitus without complications; Z87.891 Personal history of nicotine dependence; Z88.0 Allergy status to penicillin; Z88.2 Allergy status to sulfonamides; Z88.5 Allergy status to narcotic agent; Z88.7 Allergy status to serum and vaccine; Z79.899 Other long term (current) drug therapy
CPT/HCPCS: 36415; 71045; 80053; 81003; 83880; 84484; 85025; 93005; 93010; 99285-25

== ENCOUNTER 2025-01-08 08:34 | Emergency (ER) | payer MEDICARE, OTHER ==
[~2025-01-08] VITALS: Ht 162.6 cm; Wt 54.2 kg
[~2025-01-08 08:34] MED LIST changes: +DILTIAZEM ER180 MG PO; +FUROSEMIDE20 MG PO; +POTASSIUM CHLO10 ME1 PO; +TRAMADOL HCL50 MG PO
[2025-01-08] MEDS ORDERED: ACETAMINOPHEN 500 MG TAB PO ONE (10:30)
[2025-01-08] MEDS ORDERED: LIDOCAINE HCL 4% 1 EACH PATCH TD ONE (10:30)
[2025-01-08 10:40] VITALS: BP 149/98
[2025-01-08] MEDS ORDERED: LIDOCAINE PATCH REMOVAL 1 EA TD SCH (21:00)
== END 2025-01-08 10:40 | disposition home or self-care (01) ==
LOC: ED 08:34
DX: S22.31XA Fracture of one rib, right side, initial encounter for closed fracture (principal); M25.552 Pain in left hip; W18.30XA Fall on same level, unspecified, initial encounter; J44.9 Chronic obstructive pulmonary disease, unspecified; I25.2 Old myocardial infarction; I50.9 Heart failure, unspecified; I25.10 Atherosclerotic heart disease of native coronary artery without angina pectoris; Z99.81 Dependence on supplemental oxygen; Z88.0 Allergy status to penicillin; Z88.2 Allergy status to sulfonamides; Z88.7 Allergy status to serum and vaccine; Z88.1 Allergy status to other antibiotic agents; Z88.5 Allergy status to narcotic agent; Z79.82 Long term (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; Z79.84 Long term (current) use of oral hypoglycemic drugs; Z79.899 Other long term (current) drug therapy
CPT/HCPCS: 71101; 73502; 99285; A9270

== ENCOUNTER 2025-02-09 18:56 | Emergency (ER) | payer MEDICARE, OTHER ==
[~2025-02-09] VITALS: Ht 162.6 cm; Wt 54.2 kg
[2025-02-09] MEDS ORDERED: HYDROmorphone HCL 1 MG/ML SYR IV PRN (19:45)
[2025-02-09] MEDS ORDERED: PERCOCET 5-3251 EACH PO (23:23)
[2025-02-09] MEDS ORDERED: OXYCODONE/ACETAMINOPHEN 1 TAB HOME.PACK PO ONE (23:30)
[2025-02-10 00:35] VITALS: BP 121/71
== END 2025-02-10 00:35 | disposition home or self-care (01) ==
LOC: ED 18:56
DX: S22.059A Unspecified fracture of T5-T6 vertebra, initial encounter for closed fracture (principal); S22.069A Unspecified fracture of T7-T8 vertebra, initial encounter for closed fracture; S22.079A Unspecified fracture of T9-T10 vertebra, initial encounter for closed fracture; J44.9 Chronic obstructive pulmonary disease, unspecified; I25.2 Old myocardial infarction; E11.9 Type 2 diabetes mellitus without complications; F43.10 Post-traumatic stress disorder, unspecified; X58.XXXA Exposure to other specified factors, initial encounter; Z79.51 Long term (current) use of inhaled steroids; Z79.84 Long term (current) use of oral hypoglycemic drugs; Z79.899 Other long term (current) drug therapy; Z88.5 Allergy status to narcotic agent; Z88.1 Allergy status to other antibiotic agents; Z88.0 Allergy status to penicillin; Z88.2 Allergy status to sulfonamides; Z88.7 Allergy status to serum and vaccine; Z87.891 Personal history of nicotine dependence
CPT/HCPCS: 72128; 96374; 96376; 99284-25; J1171

== ENCOUNTER 2025-02-27 11:27 | Emergency (ER) | payer MEDICARE, OTHER ==
[~2025-02-27] VITALS: Ht 162.6 cm; Wt 54.0 kg
[2025-02-27 11:41] LABS: MCH 28.2 PG (25.6-32.2); MCHC 31.9 g/dL (32.2-35.5); MCV 88.5 fL (79.4-94.8); RBC 4.68 M/uL (3.93-5.22)
[2025-02-27] MEDS ORDERED: ASPIRIN 81 MG CHEW PO ONE (11:45)
[2025-02-27] MEDS ORDERED: NITROGLYCERIN 0.4 MG SUBL SL PRN (11:45)
[2025-02-27 11:57] LABS: BASOPHILS, MANUAL DIFF 1; LYMPHOCYTES, MANUAL DIFF 60; MONOCYTES, MANUAL DIFF 5; NEUTROPHILS, MANUAL DIFF 34
[2025-02-27 11:59] LABS: ALT (SGPT) 18.0 U/L (14-59); AST (SGOT) 18.0 U/L (15-37); GLOMERULAR FILTRATION RATE,EST 92.0 mL/min (>60); PROTEIN, TOTAL 6.2 g/dL (6.4-8.2); UREA NITROGEN 14.0 mg/dL (7-18)
[2025-02-27 14:51] VITALS: BP 126/93
--- NOTE | 2025-02-28 11:18 | EKG ---
[facility] [address] [facility] [place] [address] Signed Sinus tachycardia with occasional and consecutive premature ventricular complexes Left axis deviation Septal infarct (cited on or before 13-JUN-2020) Inferior infarct (cited on or before 03-MAY-2020) Abnormal ECG When compared with ECG of 16-NOV-2024 08:32, No significant change was found Confirmed by Ko Wallace DO ([id number]) on 02/28/2025 11:18:41 AM Electronically Signed By: KO WALLACE DO 02/28/25 1118 PATIENT NAME: NATALY SHANNON Electrocardiogram DATE OF : 44 PHYSICIAN: KO WALLACE DO REPORT #: [id number] REPORT IS CONFIDENTIAL AND NOT TO BE RELEASED WITHOUT AUTHORIZATION
== END 2025-02-27 15:05 | disposition home or self-care (01) ==
LOC: ED 11:27
PROVIDERS: Emergency Medicine
DX: R07.9 Chest pain, unspecified (principal); E11.9 Type 2 diabetes mellitus without complications; F43.10 Post-traumatic stress disorder, unspecified; Z79.84 Long term (current) use of oral hypoglycemic drugs; Z79.51 Long term (current) use of inhaled steroids; Z79.82 Long term (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; Z88.0 Allergy status to penicillin; Z88.2 Allergy status to sulfonamides; Z88.7 Allergy status to serum and vaccine; Z88.1 Allergy status to other antibiotic agents; Z88.8 Allergy status to other drugs, medicaments and biological substances; Z87.891 Personal history of nicotine dependence
CPT/HCPCS: 36415; 71045; 80053; 83735; 84484; 85025; 93005; 93010; 99285-25; A9270

== ENCOUNTER 2025-03-28 06:47 | Inpatient (IN) | payer OTHER, MEDICARE ==
[~2025-03-28] VITALS: Ht 162.6 cm; Wt 49.8 kg
[2025-03-28] MEDS ORDERED: MORPHINE SULFATE 4 MG/ML VIAL IV PRN (07:00)
[2025-03-28 07:41] LABS: BASOPHILS 0.3 % (0.1-1.2); EOSINOPHILS 1.2 % (0.7-5.8); LYMPHOCYTES 22.3 % (19.3-51.7); MCH 28.3 PG (25.6-32.2); MCHC 31.9 g/dL (32.2-35.5); MCV 88.8 fL (79.4-94.8); MONOCYTES 11.8 % (4.7-12.5); NEUTROPHILS 64.1 % (34.0-71.1); RBC 4.38 M/uL (3.93-5.22)
[2025-03-28 08:07] LABS: ALT (SGPT) 23.0 U/L (14-59); AST (SGOT) 24.0 U/L (15-37); GLOMERULAR FILTRATION RATE,EST 94.0 mL/min (>60); PROTEIN, TOTAL 6.5 g/dL (6.4-8.2); UREA NITROGEN 17.0 mg/dL (7-18)
[2025-03-28 08:57] LABS: BLOOD/HGB, URINE NEGATIVE (Negative); KETONE, URINE NEGATIVE (Negative); LEUK ESTERASE, URINE NEGATIVE (negative); NITRITE, URINE NEGATIVE (negative)
[2025-03-28] MEDS ORDERED: OXYCODONE/APAP 5/325 TAB PO ONE ×2 (11:45→17:45)
[2025-03-28] MEDS ORDERED: DEXTROSE 50% 50 ML SYR IV PRN ×2 (20:15)
[2025-03-28] MEDS ORDERED: IBLOOD GLUCOSE TEST STRIP 1 EA TEST XX PRN (20:15)
[2025-03-28] MEDS ORDERED: OXYCODONE HCL 5 MG TAB PO PRN (20:15)
[2025-03-28] MEDS ORDERED: DEXTROSE 5% 1,000 ML IV PRN (20:15)
[2025-03-28] MEDS ORDERED: GLUCAGON,HUMAN RECOMBINANT 1 MG/ML VIAL SUB-Q PRN (20:15)
[2025-03-28] MEDS ORDERED: ACETAMINOPHEN 325 MG TAB PO PRN (20:15)
[2025-03-28] MEDS ORDERED: IBLOOD GLUCOSE TEST STRIP 1 EA TEST VI SCH (21:00)
[2025-03-28] MEDS ORDERED: INSULIN LISPRO 100 UNIT/ML ML SUB-Q SCH (21:00)
--- NOTE | 2025-03-28 21:42 | NUR ---
TELEPHONE REPORT RECEIVED FROM FRICKERTRON CHECKER ADITYA. HOUSE FLOAT RN TO BRING pt TO MS FLOOR.
[2025-03-28 21:53] VITALS: BP 151/83
--- NOTE | 2025-03-28 22:00 | NUR ---
PT TO FLOOR WITH FLOAT RN VIA STRETCHER. PT ALERT AND ORIENTED. 3PA SLIDE TRANSFER TO BED. PT MANOLO FAIR. ASSISTED TO REPOSITION. LEFT ARM ELEVATED ON PILLOW. VS AND WEIGHT OBTAINED. PUREWICK IN PLACE. 3L/NC IN PLACE. PT REPORTS LEFT ARM PAIN /10. DENIES PRN FOR PAIN WHEN OFFERED. WARM BLANKET PROVIDED. ENVIRONMENTAL SERVICES SUPERVISOR IN FOR ADMISSION.
--- NOTE | 2025-03-28 23:15 | NUR ---
ADMISSION ASSESSMENT COMPLETE. PT REPORTS LEFT HIP/ARM PAIN 11/14. PRN FOR PAIN ADMIN PER EMAR. PT REPOSITIONED IN BED WITH PILLOWS. LUE ELEVATED ON PILLOW. CAST IN PLACE. BRISK CAP REFILL NOTED. PT REPORTS CHRONIC N/T. CPOX AND SCD'S IN PLACE. 2L/NC IN PLACE. SpO2 LOW 90'S. HR ONE TEENS. IRREGULAR. MD AWARE. PT ORIENTED TO ROOM AND NURSE CALL LIGHT. NO FURTHER NEEDS. CALL LIGHT IN REACH. BED ALARM FOR SAFETY.
[2025-03-28] MEDS ORDERED: ALBUTEROL SULFATE 0.083% 3 ML VIAL INH PRN (23:45)
[2025-03-29] VITALS (10 sets, daily range): BP systolic 111–131; BP diastolic 67–97
--- NOTE | 2025-03-29 01:24 | NUR ---
CALL LIGHT ANSWERED. PT REPORTS LEFT ARM/LEFT LEG PAIN 11/14. PRN FOR PAIN ADMIN PER EMAR. VS AND I&O OBTAINED. NEW PUREWICK PLACED AFTER CHOCO CARE. NO FURTHER NEEDS. CALL LIGHT IN REACH.
--- NOTE | 2025-03-29 03:01 | NUR ---
CPOX ALARMING. ISSUE RESOLVED. PT AWAKE IN BED. NO NEEDS AT THIS TIME. CALL LIGHT IN REACH.
[2025-03-29 06:00] LABS: BASOPHILS 0.2 % (0.1-1.2); EOSINOPHILS 0.3 % (0.7-5.8); LYMPHOCYTES 17.0 % (19.3-51.7); MCH 28.0 PG (25.6-32.2); MCHC 31.6 g/dL (32.2-35.5); MCV 88.5 fL (79.4-94.8); MONOCYTES 11.8 % (4.7-12.5); NEUTROPHILS 70.4 % (34.0-71.1); RBC 4.54 M/uL (3.93-5.22)
--- NOTE | 2025-03-29 06:33 | NUR ---
LAB IN FOR MORNING DRAW. VS AND I&O OBTAINED. PT REPORTS 8/10 LEFT ARM/HIP PAIN. PRN FOR PAIN ADMIN PER EMAR. ASSISTED TO REPOSITION. NO FURTHER NEEDS. CALL LIGHT IN REACH.
[2025-03-29 06:35] LABS: ALT (SGPT) 21.0 U/L (14-59); AST (SGOT) 25.0 U/L (15-37); GLOMERULAR FILTRATION RATE,EST 97.0 mL/min (>60); PHOSPHORUS, INORGANIC 4.0 mg/dL (2.5-4.9); PROTEIN, TOTAL 6.4 g/dL (6.4-8.2); UREA NITROGEN 14.0 mg/dL (7-18)
--- NOTE | 2025-03-29 06:44 | NUR ---
BLOOD SUGAR NOTED 76. SNACK PROVIDED.
[2025-03-29] MEDS ORDERED: ALBUTEROL/IPRATROPIUM 3 ML NEB INH SCH (08:00)
[2025-03-29] MEDS ORDERED: BUDESONIDE 0.5 MG/2 ML VIAL INH SCH (08:00)
[2025-03-29] MEDS ORDERED: FUROSEMIDE 20 MG TAB PO SCH (09:00)
--- NOTE | 2025-03-29 09:06 | NUR ---
Patient in bed watching tv, alert and oriented x3. Patient reports nausea. Admin zofran 4mg iv at this time.
--- NOTE | 2025-03-29 09:15 | NUR ---
Spoke with Priscila. She is working with PT/OT. Requires 2 person assist to get to a commode. Pt is nonweight bearing on L arm. She lives alone. Uses a walker and has a wc. She fell and has healing fractures. Pt states she is aware she will have to go some place for rehab. She is aware she is unable to walk. We discussed where she wants to go. She refuses WBT in town. First choice is [facility], 2nd is [facility] in [place], and 3rd is [facility] in [facility]. I will send her chart. Pt states she really cannot aford a CG in the home. She lives on around $1000 per month.She states her son cannot assist her as his is disabled from a stroke. He is in his 60s and has a 1 yo and and 10 yo. She states he would very much like to have her home, but she does not want to give it up as she likes to be independent. She is working with a section supervisor from her alevism to make arrangements. She also has a daughter she states has "never worked a day in her life." Pt again stating she knows she cannot go home alone. She denies financial or safety concerns at this time. We did discuss Air Cargo Specialist Supervisor Care through the state. She does not want a lean against her home.
--- NOTE | 2025-03-29 09:26 | NUR ---
RECEIVED VERBAL REPORT FROM KOBE BOND. KEYONNA LAYING ON BACK IN BED, HOB ELEVATED. RESTING WITH EYES CLOSED, RESPIRATIONS EVEN AND UNLABORED, VISIBLE CHEST RISE AND FALL. 3LNC ON. CPOX AT BEDSIDE 95%. NO NEEDS IDENTIFIED AT THIS TIME. CALL LIGHT IN REACH.
--- NOTE | 2025-03-29 10:38 | NUR ---
PATIENT IS SITTING IN THE CHAIR. PERICARE WAS DONE AND PUREWICK WAS CHANGED. PATIENTS LINEN WAS CHANGED. PATIENT WAS HAVING NAUSEA AND RN TIA WAS NOTIFIED. PATIENTS CALL LIGHT IS WITHIN REACH AND NO FURTHER NEEDS AT THIS TIME,
--- NOTE | 2025-03-29 10:59 | NUR ---
ANSWERED PATIENT CALL LIGHT FOR REPOSITIONING IN CHAIR. PATIENT AWAKE AND ALERT, 4LNC ON, CPOX ON 92%. NO OTHER NEEDS AT THIS TIME. CALL LIGHT IN REACH,
--- NOTE | 2025-03-29 11:00 | NUR ---
UR CLINICAL REVIEW: 2 MN FOR VERSALUS-PER FOREST AIDE MEETS OBS FOR RADIAL FRACTURE WITH NEED FOR IV MORPHINE FOR PAIN CONTROL, PT/OT AND MONITORING MEDICARE OBS 03/28/25 @ 2007 ORDER MATCHES REG NO AUTH REQUIRED PER MEDICARE GUIDELINES DISCHARGE TO HOME WHEN STABLE 03/30/25
--- NOTE | 2025-03-29 11:10 | NUR ---
Notified by staff pt has further questions. When I returned, pt is tearful. Stating concerns, she does not want to be held against her will at a rehab. I let her know they cannot make her stay. It will be up to her how long she stays. Per PT she will most likely need 4-6 weeks until she can use her arm. She is concerned about her son. We did discuss there is no preinheritance. If she needs states assistance in the future and her son has taken over her home, he would need to provide her care.
[2025-03-29] MEDS ORDERED: PANTOPRAZOLE SODIUM 40 MG TABEC PO SCH (11:33)
[2025-03-29] MEDS ORDERED: PHARMACY RENAL DOSE ADJUSTMENT 1 DOSE MISC PO SCH (12:00)
--- NOTE | 2025-03-29 12:45 | NUR ---
RESPIRATORY THERAPY, AUTMN IN ROOM WITH PATIENT FOR BREATHING TREATMENT.
--- NOTE | 2025-03-29 13:00 | NUR ---
Update from PT. She called Dr. Delaney and pt is not NWB on her arm. He believes this to be an old fx. Pt is able to use her arm. She will need to fu in his office next week or after she gets to a SNF. I called Dr. Delaney office and scheduled an appt for 04/12/25 at 1:15. He will not be in the office next week.
--- NOTE | 2025-03-29 13:28 | NUR ---
Chart faxed to [facility], [facility], and [facility]ure[facility] as requested by Priscila.
--- NOTE | 2025-03-29 13:31 | NUR ---
PATIENT IS LAYING IN BED. VITAL SIGNS AND I&OS WERE DONE. PATIENTS BRIEF WAS CHECKED AND DRY. PATIENTS CALL LIGHT IS WITHIN REACH AND NO FURTHER NEEDS AT THIS TIME.
--- NOTE | 2025-03-29 15:20 | NUR ---
PATIENT REQUESTING PAIN MEDICATION HOWEVER TOO EARLY TO GIVE AND SHE REFUSED TYLEOL IT MAKES HER "FEEL YUCKY". WARM PACK GIVEN AND PATIENT STATED SHE PREFERS HEAT RATHER THAN MEDICATION. HEAT PACK ON L SHOULDER. PATIENT LAYING IN BED, 4 LNC ON, CPOX AT BEDSIDE 90%. PATIENT DENIES FURTHER NEEDS. CALL LIGHT IN REACH.
--- NOTE | 2025-03-29 15:37 | NUR ---
PATIENT IS LAYING IN BED AFTER A COMPLETE BED BATH. PATIENTS GOWN AND SOCKS WERE CHANGED. PATIENT BRIEF WAS DRY. PATIENTS CALL LIGHT IS WITHIN REACH AND NO FURTHER NEEDS AT THIS TIME.
[2025-03-29] MEDS ORDERED: IMITREX100 MG PO (15:38)
[2025-03-29] MEDS ORDERED: VENTOLIN HFA18 GM INH (15:51)
--- NOTE | 2025-03-29 15:51 | NUR ---
MED REC COMPLETE
[2025-03-29] MEDS ORDERED: MICONAZOLE NITRATE 1 EA BTL TOP SCH (16:00)
--- NOTE | 2025-03-29 16:34 | NUR ---
RT SHELLY IN ROOM, PATIENT RECEIVING BREATHING TREATMENT.
--- NOTE | 2025-03-29 17:26 | NUR ---
PATIENT REPORTS SHE IS FEELING MORE NUMBNESS IN HER L ARM THAN YESTERDAY. PATINETS CMS INTACT, RADIAL PULSES STRONG AND EVEN. EDUCATED PATIENT ON IMPORTANCE OF ELEVATING ARM WITH PILLOWS AND READJUSTED ARM ON 2 PILLOWS AND PLANT SPRAYER RAPHAEL PLACED AND ICE PACK ON R ARM. PATIENT IS RESISTANT TO MAINTAINING ELEVATION OF EXTREMITY. CALL LIGHT IN REACH.
--- NOTE | 2025-03-29 18:36 | NUR ---
PATIENT GIVEN IV ZOFRAN FOR INDIGESTION, SALTINE CRACKERS AND TYLENOL WITH 5MG OF OXYCODONE FOR 8/10 LEFT ARM PAIN.
--- NOTE | 2025-03-29 19:21 | NUR ---
REPORT RECEIVED FROM DAY SHIFT RN. PT LYING IN BED RESTING WITH EYES CLOSED. RESPIRATIONS EVEN. CALL LIGHT IN REACH.
[2025-03-29] MEDS ORDERED: ATORVASTATIN 40 MG TAB PO SCH (21:00)
[2025-03-29] MEDS ORDERED: AMITRIPTYLINE HCL 25 MG TAB PO SCH (21:00)
[2025-03-29] MEDS ORDERED: ASPIRIN 81 MG TABEC PO SCH (21:00)
--- NOTE | 2025-03-29 21:13 | NUR ---
EVENING ASSESSMENT COMPLETE. SCHEDULED MEDS ADMIN PER EMAR. PT DENIES PAIN AT REST. NEW PUREWICK PLACED AFTER CHOCO CARE. BRIEF CHANGED. LUE ELEVATED ON PILLOW. CMS INTACT. SpO2 HIGH 90'S ON 4L/NC. OXYGEN TITRATED TO 3L. CPOX AND SCD'S IN PLACE. 2PA TO REPOSITION IN BED. PT DENIES QUESTIONS OR CONCERNS. CALL LIGHT IN REACH.
[2025-03-30] VITALS (9 sets, daily range): BP systolic 101–153; BP diastolic 63–76
--- NOTE | 2025-03-30 00:53 | NUR ---
PT RESTING IN BED WITH EYES CLOSED. RESPIRATIONS EVEN. CALL LIGHT IN REACH.
--- NOTE | 2025-03-30 02:47 | NUR ---
PT RESTING IN BED WITH EYES CLOSED. SpO2 93% ON 3L/NC. HR 90'S. CALL LIGHT IN REACH.
[2025-03-30] MEDS ORDERED: MAGNESIUM HYDROXIDE/AL HYDROX 30 ML CUP PO PRN (04:30)
--- NOTE | 2025-03-30 04:59 | NUR ---
CALL LIGHT ANSWERED. PT REPORTS "HEARTBURN." NIO PLACED. PT ALSO REPORTS HEADACHE PAIN 09/14. PRN FOR PAIN ADMIN. VS AND I&O OBTAINED. NEW PUREWICK PLACED AFTER CHOCO CARE. LOW URINE OUTPUT NOTED. PO INTAKE ENCOURAGED. ALEJO HILDA PROVIDED. ASSESSMENT UNCHANGED. NO FURTHER NEEDS. CALL LIGHT IN REACH.
[2025-03-30 08:31] LABS: BASOPHILS 0.1 % (0.1-1.2); EOSINOPHILS 0.1 % (0.7-5.8); LYMPHOCYTES 15.9 % (19.3-51.7); MCH 28.0 PG (25.6-32.2); MCHC 31.9 g/dL (32.2-35.5); MCV 87.8 fL (79.4-94.8); MONOCYTES 12.7 % (4.7-12.5); NEUTROPHILS 70.7 % (34.0-71.1); RBC 4.36 M/uL (3.93-5.22)
--- NOTE | 2025-03-30 08:49 | NUR ---
PT REQUESTED HER DENTURES PRIOR TO BREAKFAST. I BRUSHED THEM PRIOR TO HAVING HER PUT THEM INTO HER MOUTH. SHE THANKED ME - SAYING NO ONE ELSE HAD DONE THIS -
[2025-03-30 08:55] LABS: AST (SGOT) 23.0 U/L (15-37); GLOMERULAR FILTRATION RATE,EST 92.0 mL/min (>60); PROTEIN, TOTAL 6.4 g/dL (6.4-8.2); UREA NITROGEN 15.0 mg/dL (7-18)
[2025-03-30 09:06] LABS: ALT (SGPT) 14.0 U/L (14-59)
--- NOTE | 2025-03-30 09:20 | NUR ---
Spoke with Priscila. She cont. to plan on dc to a SNF on Friday. She denies needs. Updated I spoke with Dr. Delaney office and they have her scheduled for an appt 04/12/25 at 1:[address] Delaney. Pt cont. to home she will be able to walk on her own by Friday and be able to go home. I let her know we are hoping so also.
--- NOTE | 2025-03-30 09:56 | NUR ---
Patient awake in bed, alert and oriented x3, no acute distress. LUE wenceslao wrap is cdi, intact radial pulse noted, elevated on a pillow at this time. Patient reports tolerable pain, she is declining pain medication at this time. Bed in low position, pt denies further needs. Personal supplies and call light within reach.
--- NOTE | 2025-03-30 10:28 | NUR ---
DC REVIEW: DECREASED MOBILITY AND HIGH FALL RISK NOTED BARRIER TO DISCHARGE DISCHARGE TO SNF, AWAITING ACCEPTANCE ADD: 04/04/25 NO ACTION REQUIRED AT THIS TIME
--- NOTE | 2025-03-30 12:53 | NUR ---
ADMIN MAALOX PER PT REQUEST FOR HEARTBURN DISCOMFORT.
[2025-03-30 13:17] LABS: TSH, 3RD GENERATION 0.508 uIU/mL (0.358-3.740)
--- NOTE | 2025-03-30 13:48 | NUR ---
PATIENT SITTING UP IN HER CHAIR WITH FAMILY AT BEDSIDE. THIS RN OFFERED PATIENT PAIN MEDICATIONS, BUT PATIENT STATES "I'M DOING OKAY RIGHT NOW, I DON'T NEED ANYTHING. IT ONLY REALLY HURTS IF I MOVE." PATIENT STATES SHE WILL CALL IF SHE FEELS LIKE SHE NEEDS PAIN MEDICATION.
--- NOTE | 2025-03-30 15:09 | NUR ---
Patient assisted back to bed from chair. Patient reports he pain continues to be tolerable. LUE elevated on pillow. Bed in low, alarm intact. Personal supplies and call light within reach.
--- NOTE | 2025-03-30 17:25 | NUR ---
Patient awake eating dinner, no distress. Patient continues to report tolerable pain in LUE, cms intact. Patient denies needs at this time, personal supplies and call light within reach.
--- NOTE | 2025-03-30 19:05 | NUR ---
REPORT RECEIVED FROM SARBJIT BULLOCK. pt RESTING IN THE BED ON THE PHONE. pt DENIES ANY NEEDS AT THIS TIME. BOARD UPDATED. CALL LIGHT WITHIN REACH.
[2025-03-30] MEDS ORDERED: ALBUTEROL/IPRATROPIUM 3 ML NEB INH PRN (20:15)
--- NOTE | 2025-03-30 20:45 | NUR ---
ASSESSMENT AND VITAL SIGNS DONE. BG CHECKED WITH A RESULTS OF 142. SS INSULIN ADMINISTERED. SCHEDULED MEDS ADMINISTERED. SNACK PROVIDED. IV ASSESSED, WNL. PUREWICK IN PLACE. pt C/O 09/14 PAIN. PRN PAIN MEDS ADMINISTERED. pt DENIES ANY OTHER NEEDS AT THIS TIME. CALL LIGHT WITHIN REACH.
--- NOTE | 2025-03-30 22:35 | NUR ---
pt CALLED AND C/O 11/14 PAIN. PRN PAIN MEDS ADMINISTERED. pt BOOSTED UP IN THE BED. pt DENIES ANY OTHER NEEDS A THIS TIME. CALL LIGHT WITHIN REACH.
[2025-03-31] VITALS (10 sets, daily range): BP systolic 106–142; BP diastolic 64–78
--- NOTE | 2025-03-31 00:15 | NUR ---
pt RESTING IN THE BED WITH EYES CLOSED. RR EVEN AND UNLABORED. CALL LIGHT WITHIN REACH.
--- NOTE | 2025-03-31 01:10 | NUR ---
pt CALLED TO HAVE HER BRIEF CHANGED STATING SHE WAS WET. THIS RN AND SUPERVISOR CASE LOADING IN TO CHECK ON pt AND CHANGE BRIEF. PURE WICK CHANGED AND BRIEF CHANGED. WATER REFRESHED. pt DENIES ANY OTHER NEEDS AT THIS TIME. CALL LIGHT WITH IN REACH.
--- NOTE | 2025-03-31 03:21 | NUR ---
pt CALLED AND REQUESTED A PHONE ICU TECH. JARED PROVIDER. pt DENIES ANY OTHER NEEDS AT THIS TIME. CALL LIGHT WITHIN REACH.
--- NOTE | 2025-03-31 04:21 | NUR ---
IN RM FOR ALARMING CPOX. pt FINGURE STICKER WAS WAS NOT READING RIGHT. THIS RN ADJUSTED STICKER. THEN pt BEGAN SATTING AT 90%. pt DENIES ANY OTHER NEEDS AT THIS TIME. CALL LIGHT WITHIN REACH.
--- NOTE | 2025-03-31 05:15 | NUR ---
IN RM TO DO pt VITAL SIGNS. LAB IN RM TO DRAW AM LABS. pt DENIES ANY OTHER NEEDS AT THIS TIME. CALL LIGHT WITHIN REACH.
[2025-03-31 05:28] LABS: BASOPHILS 0.2 % (0.1-1.2); EOSINOPHILS 0.8 % (0.7-5.8); LYMPHOCYTES 15.5 % (19.3-51.7); MCH 27.7 PG (25.6-32.2); MCHC 31.6 g/dL (32.2-35.5); MCV 87.6 fL (79.4-94.8); MONOCYTES 15.7 % (4.7-12.5); NEUTROPHILS 67.5 % (34.0-71.1); RBC 3.72 M/uL (3.93-5.22)
[2025-03-31 05:50] LABS: ALT (SGPT) 16.0 U/L (14-59); AST (SGOT) 17.0 U/L (15-37); GLOMERULAR FILTRATION RATE,EST 95.0 mL/min (>60); PROTEIN, TOTAL 5.9 g/dL (6.4-8.2); UREA NITROGEN 10.0 mg/dL (7-18)
--- NOTE | 2025-03-31 07:07 | NUR ---
PATIENT IS LYING IN BED WITH HOB ELEVATED. OXYMASK IN PLACE. PATIENT WITH EYES CLOSED AND RESPIRATIONS ARE EVEN AND UNLABORED. CALL LIGHT AND PERSONAL BELONGINGS ARE WITHIN REACH.
[2025-03-31] MEDS ORDERED: ARFORMOTEROL TARTRATE 15 MCG/2 ML VIAL INH SCH (08:00)
--- NOTE | 2025-03-31 09:15 | NUR ---
PATIENT IS IN BED AT THIS TIME, PRODUCE DEPARTMENT SUPERVISOR CHARTED VITALS AND I&O'S, GOT FRESH ICE WATER, EMPTIED PUREWICK. PATIENT DOES NOT WANT TO GET UP IN THE CHAIR UNTIL ITS A BIT CLOSER TO LUNCH. PRODUCE DEPARTMENT SUPERVISOR GOT A WARM WASH CLOTH TO WASH FACE, AND DID AM CARE. CALL LIGHT WITH IN REACH AND NOTHING ELSE NEEDED AT THIS TIME.
--- NOTE | 2025-03-31 09:33 | NUR ---
PATIENT IS LYING IN BED WITH HOB ELEVATED. PATIENT WITH EYES OPEN AND RESPIRATIONS ARE EVEN AND UNLABORED. CALL LIGHT AND PERSONAL BELONGINGS ARE WITHIN REACH.
--- NOTE | 2025-03-31 10:08 | NUR ---
PATIENT IS LYING IN BED WITH HOB ELEVATED. PATIENT WITH NC IN PLACE WITH CPOX AT BEDSIDE. CALL LIGHT AND PERSONAL BELONGINGS ARE WITHIN REACH.
--- NOTE | 2025-03-31 11:21 | NUR ---
PATIENT IS SITTING IN THE CHAIR WITH BILATERAL LOWER EXTREMITITES ELEVATED AFTER WORKING WITH PHYSICAL THERAPY. YVETTE BLACKMAN IS IN THE ROOM AND REPORTS CHANGING THE PUREWICK AT THIS TIME. PATIENT WITH EYES OPEN AND RESPIRATIONS ARE EVEN AND UNLABORED. NC IN PLACE. PARTNER ALLIANCE MANAGER REMAINS IN THE ROOM AT THIS TIME.
[2025-03-31] MEDS ORDERED: ALBUTEROL/IPRATROPIUM 3 ML NEB INH SCH (12:00)
--- NOTE | 2025-03-31 12:12 | NUR ---
PATIENT BEGAN YELLING OUT. THIS RNTOO RN AND BARAK PATELPEN TESTER RAN INTO THE ROOM. PATIENT BEGAN COUGHING AND REPORTING CHOCKING. PATIENT ABLE TO CLEAR AIRWAY AND COUGH UP PIECE OF MEAT. PATIENT REMAINS IN THE CHAIR AND YVETTE BLACKMAN IS IN THE ROOM TO ASSIST WITH EATING. SUCTION IS SET UP AND WITHIN REACH OF THE PATIENT. PATIENT STATED NO FURTHER NEEDS AT THIS TIME. CALL LIGHT AND PERSONAL BELONGINGS ARE WITHIN REACH.
--- NOTE | 2025-03-31 13:10 | NUR ---
REPORT RECEIVED FROM DEB Prakash RN. PATIENT RESTING IN BED AT THIS TIME, EYES CLOSED, RR EVEN AND UNLABORED. CALL LIGHT IN REACH.
--- NOTE | 2025-03-31 13:10 | NUR ---
REPORT RECEIVED FROM DEB Prakash RN. PATIENT CURRENTLY ON BED CEBALLOS. NO REQUESTS. CALL LIGHT IN REACH.
--- NOTE | 2025-03-31 13:17 | NUR ---
PATIENT IS SITTING IN THE CHAIR WITH BILATERAL LOWER EXTREMITIES ELEVATED. NC IN PLACE WITH THE CPOX AT BEDSIDE. PATIENT WITH EYES CLOSED AND RESPIRATIONS ARE EVEN AND UNLABORED. YVETTE SAENZ IS IN THE ROOM AND REPORTS GOING TO GET THE PATIENT BACK TO BED.
--- NOTE | 2025-03-31 15:18 | NUR ---
PATIENT REMAINS RESTING WITH EYES CLOSED, RR EVEN AND UNLABORED. NASAL CANNULA IN PLACE. CALL LIGHT IN REACH.
--- NOTE | 2025-03-31 19:10 | NUR ---
REPORT RECEIVED FROM BRE BULLOCK. pt RESTING IN THE BED. BOARD UPDATED. pt DENIES ANY OTHER NEEDS AT THIS TIME. CALL LIGHT WITHIN REACH.
--- NOTE | 2025-03-31 20:42 | NUR ---
METAL TRADES INSTRUCTOR OBTAINED VITALS AND I&O. PT STATES NO NEEDS AT THIS TIME. CALL LIGHT WITHIN REACH.
[2025-03-31] MEDS ORDERED: SENNOSIDES/DOCUSATE 1 EA TAB PO SCH (21:00)
[2025-03-31] MEDS ORDERED: POLYETHYLENE GLYCOL 3350 1 PACKET PO SCH (21:00)
--- NOTE | 2025-03-31 21:10 | NUR ---
ASSESSMENT AND VITAL SIGNS DONE. BG CHECKED WITH A RESULTS OF 133. NO SS INSULIN NEEDED. SCHEDULED MEDS ADMINISTERED. LUNG SOUNDS CLEAR. pt DENIES ANY OTHER NEEDS AT THIS TIME. CALL LIGHT WITHIN REACH.
--- NOTE | 2025-03-31 21:50 | NUR ---
pt CALLED TO BE BOOSTED IN THE BED. IN RM WITH YVETTE HARRELL. pt STARTED TO COUGH AND THROUGH UP MUCOUS. THIS RN ADMINISTERED PRN ZOFRAN FOR NAUSEA THEN pt STATED SHE WAS HAVING SHARP CHEST PAIN THAT SHE CANT GET RID OF. THIS RN CALL MD. ORDERS RECEIVED AND VERIFIED WITH REPEAT BACK METHOD. pt DENIES ANY OTHER NEEDS AT THIS TIME. CALL LIGHT WITHIN REACH.
[2025-03-31] MEDS ORDERED: PROCHLORPERAZINE EDISYLATE 10 MG/2 ML VIAL IV PRN (22:30)
--- NOTE | 2025-03-31 22:57 | NUR ---
DR. WALLACE CALLED, GIVEN TROP RESULT PER REQUEST.
[2025-04-01] VITALS (10 sets, daily range): BP systolic 116–169; BP diastolic 62–87
--- NOTE | 2025-04-01 00:05 | NUR ---
IN RM TO CHECK ON pt. pt STATES HER PAIN IS BETTER. pt ALSO DENIES ANY OTHER NEEDS AT THIS TIME. CALL LIGHT WITHIN REACH.
--- NOTE | 2025-04-01 01:37 | NUR ---
pt CALLED FOR A WARM BLANKET. WARM BLANKET PROVIDED. pt DENIES ANY OTHER NEED AT THIS TIME. CALL LIGHT WITHIN REACH.
--- NOTE | 2025-04-01 02:00 | NUR ---
pt CALLED TO HAVE THE PURE WICK CHANGED DUE TO BEING WET. pt BRIEF AND PURE WICK CHANGED. pt DENIES ANY OTHER NEEDS AT THIS TIME. CALL LIGHT WITHIN REACH.
--- NOTE | 2025-04-01 03:56 | NUR ---
pt RESTING IN THE BED WITH EYES CLOSED. RR EVEN AND UNLABORED. CALL LIGHT WITHIN REACH.
[2025-04-01 05:32] LABS: BASOPHILS 0.2 % (0.1-1.2); EOSINOPHILS 0.3 % (0.7-5.8); LYMPHOCYTES 9.6 % (19.3-51.7); MCH 28.2 PG (25.6-32.2); MCHC 32.3 g/dL (32.2-35.5); MCV 87.1 fL (79.4-94.8); MONOCYTES 10.6 % (4.7-12.5); NEUTROPHILS 78.9 % (34.0-71.1); RBC 4.19 M/uL (3.93-5.22)
--- NOTE | 2025-04-01 05:40 | NUR ---
pt CALLED AND C/O NAUSEA. PRN ANTINAUSEA MEDS ADMINISTERED. VITAL SIGNS DONE. pt DENIES ANY OTHER NEEDS AT THIS TIME. CALL LIGHT WITHIN REACH.
[2025-04-01 06:24] LABS: ALT (SGPT) 9.0 U/L (14-59); AST (SGOT) 32.0 U/L (15-37); GLOMERULAR FILTRATION RATE,EST 94.0 mL/min (>60); PROTEIN, TOTAL 6.3 g/dL (6.4-8.2); UREA NITROGEN 13.0 mg/dL (7-18)
--- NOTE | 2025-04-01 06:54 | NUR ---
PT UP TO RECLINER W/ 1 ASSIST AND FWW. LUE ELEVATED ON PILLOWS. CALL LIGHT WITHIN REACH.
--- NOTE | 2025-04-01 07:01 | NUR ---
REPORT RECEIVED FROM SHIPPING & RECEIVING LEAD RN SARA. PATIENT IS SITTING IN THE CHAIR WITH BILATERAL LOWER EXTREMITIES ELEVATED. PATIENT WITH EYES CLOSED AND RESPIRATIONS ARE EVEN AND UNLABORED. NC IN PLACE. CALL LIGHT AND PERSONAL BELONGINGS ARE WITHIN REACH.
--- NOTE | 2025-04-01 07:46 | NUR ---
INTO SEE PATIENT. SPOKE WITH PATIENT ABOUT SENDING UPDATES TO FACILITIES [facility]TUNE[facility] AT THE [facility] FOR FRIDAY. NO FUTHER CM NEEDS.
--- NOTE | 2025-04-01 08:39 | NUR ---
Patient was in her chair at this time, I assisted patient back to bed, and assisted KOBE Yanez with vitals, which she charted. Call light with in reach and nothing else needed at this time.
--- NOTE | 2025-04-01 09:00 | NUR ---
DC REVIEW: CONTINUED NEED FOR PT/OT, UNABLE TO DC TO HOME PLAN TO DC TO SNF. CHARTS OUT FOR REVIEW AT [facility] AND [facility] AT THE [facility] ADD: 04/04/25 NO ESCALATIONS NEEDED.
--- NOTE | 2025-04-01 09:12 | NUR ---
PATIENT IS LYING IN BED WITH HOB ELEVATED. PATIENT WITH NC IN PLACE. PATIENT WITH EYES CLOSED AND RESPIRATIONS ARE EVEN AND UNLABORED. CALL LIGHT AND PERSONAL BELONGINGS ARE WITHIN REACH.
--- NOTE | 2025-04-01 09:13 | NUR ---
JI AT THE [facility] ACCEPTED PATIETNT FOR FRIDAY.
[2025-04-01 10:12] LABS: TRIIODOTHYRONINE,FREE FREE T3 2.5 pg/mL (2.5-4.3); TRIIODOTHYRONINE,TOTAL T3 TTL 102 ng/dL (80-200)
--- NOTE | 2025-04-01 10:24 | NUR ---
PATIENT IS LYING IN BED WITH HOB ELEVATED. PATIENT WITH EYES CLOSED AND RESPIRATIONS ARE EVEN AND UNLABORED. NC IN PLACE. CALL LIGHT AND PERSONAL BELONGINGS ARE WITHIN REACH.
--- NOTE | 2025-04-01 11:17 | NUR ---
PATIENT REMAINS OFF THE FLOOR AT THIS TIME IN CT.
[2025-04-01 11:44] LABS: TSH RECEPTOR ANTIBODY <1.10 IU/L (<=1.75)
--- NOTE | 2025-04-01 12:34 | NUR ---
PATIENT IS LYING IN BED WITH HOB ELEVATED. PATIENT IS ON ROOM AIR. PATIENT WITH EYES CLOSED AND RESPIRATIONS ARE EVEN AND UNLABORED. CALL LIGHT AND PERSONAL BELONGINGS ARE WITHIN REACH.
--- NOTE | 2025-04-01 12:52 | NUR ---
RN CALLED TO GIVE UPDATE REGARDING ABDOMINAL/PELVIS CT. WITH NO FURTHER ORDERS AT THIS TIME. MD STATED TO PROCEED WITH SUPPOSITORY ADMINISTRATION. CALL ENDED.
--- NOTE | 2025-04-01 13:05 | NUR ---
ONE TIME DOSE OF BISACODYL SUPPOSITORY ADMINISTERED AT THIS TIME PER THE EMAR. PATIENT TOLERATED WELL. PATIENT WITH NO COMPLAINTS OF PAIN AT THIS TIME. IV SITE FLUSHED WITH 10 ML NORMAL SALINE AND IS SALINE LOCKED. IV DRESSING IS CLEAN, DRY, AND INTACT. COCCYX/BUTTOCKS WITH NO REDNESS NOTED. PATIENT WITH VISITOR IN THE ROOM. DRESSING TO THE LUE IS CLEAN, DRY, AND INTACT. PATIENT STATED NO FURTHER NEEDS AT THIS TIME. CALL LIGHT AND PERSONAL BELONGINGS ARE WITHIN REACH.
--- NOTE | 2025-04-01 14:20 | NUR ---
PATIENT IS LYING IN BED WITH HOB ELEVATED. PATIENT WITH EYES OPEN AND RESPIRATIONS ARE EVEN AND UNLABORED. NC IN PLACE. PATIENT IS WATCHING TV. CALL LIGHT AND PERSONAL BELONGINGS ARE WITHIN REACH.
--- NOTE | 2025-04-01 16:10 | EKG ---
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
--- NOTE | 2025-04-01 17:10 | NUR ---
PATIENT IS SITTING IN THE CHAIR AT THIS TIME WITH BILATERAL LOWER EXTREMITIES ELEVATED AFTER GETTING OFF THE COMMODE WITH YVETTE JO. TUBE INSPECTOR REPORTS THAT PATIENT HAD A SMALL AND HARD BM. PATIENT IS ON NC. PATIENT AND TUBE INSPECTOR REPORT NO FURTHER NEEDS AT THIS TIME. YVETTE REMAINS IN THE ROOM.
--- NOTE | 2025-04-01 18:23 | NUR ---
PATIENT IS SITTING IN THE CHAIR WITH BILATERAL LOWER EXTREMITIES ELEVATED. PATIENT WITH NC IN PLACE. PATIENT WITH EYES OPEN AND RESPIRATIONS ARE EVEN AND UNLABORED. PATIENT IS ON HER PHONE. CALL LIGHT AND PERSONAL BELONGINGS ARE WITHIN REACH.
--- NOTE | 2025-04-01 19:05 | NUR ---
REPORT RECEIVED FROM DEB BULLOCK. pt RESTING IN THE BED. BOARD UPDATED. pt DENIES ANY OTHER NEEDS AT THIS TIME. CALL LIGHT WITHIN REACH.
--- NOTE | 2025-04-01 20:55 | NUR ---
ASSESSMENT AND VITAL SIGNS DONE. PURE WICK CHANGED. IV ASSESSED, WNL. pt REPOSTIONED IN THE BED. SCHEDULED MEDS ADMINISTERED. pt DENIES ANY OTHER NEEDS AT THIS TIME. CALL LIGHT WITHIN REACH.
--- NOTE | 2025-04-01 23:03 | NUR ---
pt RESTING IN THE BED WITH EYES CLOSED. RR EVEN AND UNLABORED. CALL LIGHT WITHIN REACH.
[2025-04-02] VITALS (9 sets, daily range): BP systolic 113–136; BP diastolic 60–86
--- NOTE | 2025-04-02 01:06 | NUR ---
pt RESTING IN THE BED WITH EYES CLOSED. RR EVEN AND UNLABORED. CALL LIGHT WITHIN REACH.
--- NOTE | 2025-04-02 03:10 | NUR ---
PT REPORTS HAVING HEARTBURN. PRN ADMINISTERED, SEE EMAR. PT DENIES FURTHER NEEDS. CALL LIGHT IN REACH.
--- NOTE | 2025-04-02 05:25 | NUR ---
VITAL SIGNS DONE. DAILY WEIGHT DONE. pt DENIES ANY NEEDS AT THIS TIME. CALL LIGHT WITHIN REACH.
[2025-04-02 05:28] LABS: BASOPHILS 0.1 % (0.1-1.2); EOSINOPHILS 0.4 % (0.7-5.8); LYMPHOCYTES 12.6 % (19.3-51.7); MCH 28.5 PG (25.6-32.2); MCHC 33.4 g/dL (32.2-35.5); MCV 85.3 fL (79.4-94.8); MONOCYTES 10.6 % (4.7-12.5); NEUTROPHILS 76.0 % (34.0-71.1); RBC 4.07 M/uL (3.93-5.22)
[2025-04-02 05:53] LABS: ALT (SGPT) 20.0 U/L (14-59); AST (SGOT) 29.0 U/L (15-37); GLOMERULAR FILTRATION RATE,EST 96.0 mL/min (>60); PROTEIN, TOTAL 6.3 g/dL (6.4-8.2); UREA NITROGEN 9.0 mg/dL (7-18)
--- NOTE | 2025-04-02 07:10 | NUR ---
Pt report received from KOBE Polo. Pt is resting in bed, supine, eyes closed, breathing is regular, even, and non-labored. Side rails up, call light in reach. White board updated at this time.
[2025-04-02] MEDS ORDERED: PROPRANOLOL HCL 20 MG TAB PO SCH (09:00)
--- NOTE | 2025-04-02 09:33 | NUR ---
HELPED PT MOVE FROM THE BED TO THE CHAIRT. CHAIR ALARM ON AND CALL LIGHT ON LAP. RESPIRATORY THERAPY IN ROOM WITH PT.
[2025-04-02] MEDS ORDERED: MAGNESIUM CITRATE 300 ML BTL PO ONE (12:15)
--- NOTE | 2025-04-02 12:17 | NUR ---
MOVED PT BACK TO THE CHAIR - PER RN.
--- NOTE | 2025-04-02 12:36 | NUR ---
PT SITTING UP IN CHAIR AT THIS TIME HAVING LUNCH, SHE C/O HEARTBURN. PRIMARY RN NOTIFIED AND PRN MEDS GIVEN - SEE MAR. PT DENIES ANY OTHER NEEDS AT THIS TIME, CALL ANABELL RUDOLPH.
--- NOTE | 2025-04-02 14:56 | NUR ---
PC to Dr. Durán to update him on this pt's status as she is still vomiting after receiving 4mg zofran and 5mg prochlorperazine. Pt states she is trying to finish the mag citrate but she thinks it's making her nauseated. Also updated him that it appears that the bulge in this pt's belly seems to look bigger than what it did during morning assessment. He reminded me that there is also a hiatal hernia present, which, with the vomiting, might make the bulge appear larger. Dr. Durán then entered an order for a fleet enema to be administered. Pt is currently napping. Side rails up x4, call light in reach.
[2025-04-02] MEDS ORDERED: SOD PHOSPHATE/SOD BIPHOSPHATE 132 ML BTL PR ONE (15:00)
[2025-04-02] MEDS ORDERED: LORazepam 2 MG/ML VIAL IV ONE (16:00)
--- NOTE | 2025-04-02 19:34 | NUR ---
At approximately 1225 hours, pt reports needing an antacid and was administered maalox by KOBE Hunter at about 1235 hours. At about 1321 hours I administered mg citrate per emar and the pt requested it be mixed in cranberry juice (okay per Dr. Durán). I prepared this for her and she began to sip it. At about 1329 hours the pt began wretching and vomiting and was administered 4mg zofran. At approximately 1440 hours, meat counter worker Tina advised that the pt is vomiting again. I administered 5mg compazine per emar and we assisted the pt back in to bed at her request so she can try to nap. The pt continued to feel nauseated and dry heaving. PC to Dr. Durán at approximately 1454 hours to update him regarding the attempts to encourage a BM and that she was unable to tolerate the mg citrate. He put in an order for 1mg ativan to help her relax and settle and an order for a fleets enema. At about 1641 I administered the ativan and the pt requested she be allowed to nap until dinner comes. Once dinner arrived, the pt was soundly sleeping (sats 94%), and was allowed to continue to rest. Fleets enema not yet administered.
--- NOTE | 2025-04-02 20:32 | NUR ---
NATALY (DEANDRE) IS CURRENTLY ON A 4L NC. WE STARTED A CORNET FOR CPT BECAUSE RT CAN HER SOME MILD FINE CRACKLES IN HER LUNG BASES. DEANDRE'S SPO2 BEFORE NEB (BROVANA BID, PULMICORT BID, DUONEB QID) WAS 88%, POST TREATMENT 98%.
--- NOTE | 2025-04-02 21:10 | NUR ---
Assisted Pt 1PA FWW from bed to BSC-Pt had BM and urinated. Changed purewick and brief. Checked BS. Provided fresh ice water and warm blankets X2. No other needs expressed by Pt. Call light left in reach. Bed locked and lowered.
--- NOTE | 2025-04-02 22:07 | NUR ---
Pt on O2, CPOX at bedside, Lungs with crackles at bases, no cough. More alert and oriented to all, took meds w/o problems with pudin, Senna and Miralax given. Had a large BM earlier, abd distended, non tender, TIERRA. purewick changed earlier. Helped with repositioning, SL RAC patent. Bruised arms and LE vascular discoloration present. SCD's in place, elevated. Warm blankets given. A&O to all, CBG 95, no coverage needed.
--- NOTE | 2025-04-02 23:40 | NUR ---
Assisted Pt 1PA FWW from bed to BSC and back to bed with RN in room. Applied SCDs. No other needs expressed by Pt. Call light left in reach. Bed alarm set. Bed locked and lowered.
--- NOTE | 2025-04-02 23:52 | NUR ---
PT ASSISTED TO THE BEDSIDE COMMODE WITH FWW AND 1PA, PT BACK TO BED ON 4L NC WITH HUMIDIFIER ADDED AT THIS TIME. PT ASKS FOR PUDDING AND CRACKERS, GIVEN. PRESSURE REDNESS ON SPINE NOTED WHEN PT AMBULATED, ALEVYN PLACED AT THIS TIME. PT ASSISTED IN REPOSITIONING WITH PILLOWS BETWEEN LEGS, NO OTHER NEEDS AT THIS TIME, CALL LIGHT WITHIN REACH, BED AT LOWEST POSITION.
[2025-04-03] VITALS (8 sets, daily range): BP systolic 101–122; BP diastolic 60–82
--- NOTE | 2025-04-03 00:10 | NUR ---
UP TO BSC, HAD ANOTHER BM, RED AREA MID BACK, ALLEVYN APPLIED, HARD CAST L ARM, 1-2PA TO BSC, COOPERATIVE, L ARM ELEVATED. REPOSITIONED IN BED, O2 4LNC CPOX ON AT BEDSIDE. TOLERATED WELL
--- NOTE | 2025-04-03 01:28 | NUR ---
RESTING, EYES CLOSED, O2 IN PLACE, CPOX AT BEDSIDE, NO S/SX DISTRESS, HARD CASTL ARM IN PLACE, ELEVATED, SCDS IN PLACE
--- NOTE | 2025-04-03 01:55 | NUR ---
used call light, Up to BSC, had smear of soft brown BM, voided, david clay'd, attends in place 2PA to BSC. O2 4LNC at this time, slight SOB with exertion present, Tolerated well. scds on, L arm hard cast in place, good cms
--- NOTE | 2025-04-03 04:20 | NUR ---
pt had just got up to [facility] and had an extra large hard bm with multiple large pebble like BM. skin care done and back to bed. a few minutes later she called again that she had an accident. Was incontinent of a very large semiliquid brown bm in her attends plus another large amount of semiliquid bm in pot. skin care done, gown changed. Back to bed, sob with exertion noted. Pt was on room air, takes O2 tubing off when up, instructed several times but she rather take her O2 off. sats 87-88% on room air, Resp 26 and pulse 111-114 Back to bed tolerated well, once O2 is back on at 4L sats were 94%. Daily standing weight was 50.6KG
--- NOTE | 2025-04-03 06:39 | NUR ---
RESTING, O2 4LNC/HUMIDIFIER, NO S/SX DISTRESS, GOES BACK TO SLEEP. HAS HAD SEVERAL EXTRA LARGE BM'S FORMED AND SEMILIQUID. WAS INCONTINENT OF SEMILIQUID BM. COOPERATIVE
--- NOTE | 2025-04-03 07:48 | NUR ---
PT IS SLEEPING AT THIS TIME, RESPIRATIONS EVEN/UNLABORED AT THIS TIME. BED ALARM IS ON AT THIS TIME. CALL LIGHT WITHIN REACH, ALL PT CARE NEEDS MET, WILL ALLOW PATIENT TO SLEEP AT THIS TIME.
--- NOTE | 2025-04-03 08:30 | NUR ---
PT RESTING IN BED, EATING BREAKFAST. PT REFUSED TO GET OUT OF BED THIS MORNING, BUT AGREES TO GET UP LATE MORNING AND WOULD LIKE SPONGE BATH WHEN UP. PT DOES NOT HAVE ANY ISSUES TAKING PILLS. VS TAKEN, CT SCAN TECHNOLOGIST NOTIFIED. ALL PT CARE NEEDS MET AT THIS TIME. CALL WITHIN REACH. ASSESSMENT COMPLETED.
[2025-04-03 08:41] LABS: GLOMERULAR FILTRATION RATE,EST 94.0 mL/min (>60); UREA NITROGEN 14.0 mg/dL (7-18)
--- NOTE | 2025-04-03 10:41 | NUR ---
COMPLETE BED BATH DONE. lINEN CHANGE COMPLETED. PT HAS FRESH ICE WATER NEAR CHAIR AND THE CALL LIGHT. PT SITTING IN CHAIR. ROOM PICKED UP AND TRASH TAKEN FROM ROOM. PT COMPLETING RT BREATHING TREATMENT IN CHAIR. SKIN CARE COMPLETED FOLLOWING BED BATH, PT REPORTED THAT THIS "FELT NICE". CHAIR ALARM ON FOR SAFETY.
--- NOTE | 2025-04-03 11:02 | NUR ---
In with pt in response to call light to use the bathroom. 1PA with FWW, pt transferred to the [facility], assisted pt to pull her brief down. Call light placed in reach. Pt states she has to have a BM and Void. Pt understands to use the call light when she is finished.
--- NOTE | 2025-04-03 11:43 | NUR ---
PATIENT CALLED TO GET OFF OF THE BEDSIDER ELEANOR. KENDRA WAS A ONE PERSON ASSIST USING A FWW. PATIENT IS NOW BACK IN RECLINER CHAIR. NO REQUEST AT THIS TIME
--- NOTE | 2025-04-03 12:32 | NUR ---
PT SITTING UP IN CHAIR, HAVING BREAKFAST. PT REQUESTING ADDITIONAL GRAVY FOR MEAT, DIETARY DLIEVERED TO PATIENT WHILE STILL IN ROOM. PT DENIES ANY ISSUES AT THIS TIME. INSULIN GIVEN PER SLIDING SCALE - SEE MAR. ALL PT CARE NEEDS MET, CALL LIGHT WITHIN REACH.
[2025-04-03] MEDS ORDERED: acetaZOLAMIDE 250 MG TAB PO ONE (13:15)
[2025-04-03] MEDS ORDERED: POTASSIUM CHLORIDE 10 MEQ TABCR PO ONE (13:15)
--- NOTE | 2025-04-03 14:15 | NUR ---
GOT REPORT FROM MATTHEW BULLOCK. THIS NURSE WILL BE TAKING CARE OF PATIENT FOR THE EVENING.
--- NOTE | 2025-04-03 14:58 | NUR ---
INTO CHECK ON PATIENT. PATIENT WATCHING TV. MEDICATIONS GIVEN. OXYGEN ON VIA NC. PATIENT TALKATIVE. PATIENT DENIES PAIN. WATER AT BEDSIDE. BED IN LOW POSITION.
[2025-04-03] MEDS ORDERED: PROPRANOLOL HCL 20 MG TAB PO SCH (15:00)
--- NOTE | 2025-04-03 17:48 | NUR ---
PATIENT UP TO THE CHAIR FOR DINNER.
--- NOTE | 2025-04-03 22:39 | NUR ---
resting, O2 in place, no s/sx distress. Repositions self in bed
--- NOTE | 2025-04-04 01:01 | NUR ---
resting, no s/sx distress, O2 in place, L arm hard cast in place.
--- NOTE | 2025-04-04 01:13 | NUR ---
CALL LIGHT ANSWERED. 1 PA TO THE BEDSIDE COMMODE TO VOID 225 ML DARK URINE. SMELLED FOUL STRONG ODOR. PATIENT DID SELF CHOCO CARE. PATIENT IS BACK IN BED. WATER WITHOUT ICE REFILLED. NO OTHER NEEDS AT THIS TIME.
--- NOTE | 2025-04-04 02:53 | NUR ---
Resting, on 3LNC O2, no s/sx distress, L arm hard cast in place. Bed alrm in place, fall precautions in place
[2025-04-04 04:19] VITALS: BP 113/63
--- NOTE | 2025-04-04 04:27 | NUR ---
C/O BEING TOO TIRED TO GET OUT TO USE BSC. "ITS GETTING TO ME, I HURT AND IM TOO OUT OF ENERGY' STATED. HERNESTO APPLIED AGAIN ON HER REQUEST. O2 3L NC IN PLACE, COOPERATIVE WITH VITALS AND ASSESSMENT
[2025-04-04 05:36] LABS: BASOPHILS 0.4 % (0.1-1.2); EOSINOPHILS 1.1 % (0.7-5.8); LYMPHOCYTES 21.9 % (19.3-51.7); MCH 27.8 PG (25.6-32.2); MCHC 31.2 g/dL (32.2-35.5); MCV 89.2 fL (79.4-94.8); MONOCYTES 15.1 % (4.7-12.5); NEUTROPHILS 61.2 % (34.0-71.1); RBC 3.78 M/uL (3.93-5.22)
[2025-04-04 06:15] LABS: ALT (SGPT) 15.0 U/L (14-59); AST (SGOT) 22.0 U/L (15-37); GLOMERULAR FILTRATION RATE,EST 93.0 mL/min (>60); PROTEIN, TOTAL 5.5 g/dL (6.4-8.2); UREA NITROGEN 10.0 mg/dL (7-18)
--- NOTE | 2025-04-04 07:21 | NUR ---
Pt report received from KOBE Flanagan. Pt is resting in bed on her left side, TV on with volume up, breathing is regular, even, and non-labored. Side rails up x4, call light in reach. White board updated.
--- NOTE | 2025-04-04 08:00 | NUR ---
Called son, Osorio, after report from staff. Pt plans on dc to snf today and it unclear if pt will be transported by son or will need a wc van. Per son, pt has changed her mind and now plans on dc to home with he and his . Went to pts room and discuss with pt. Pt is on the phone when I arrive and she tells me "sit your but down, you have not right to speak with my son". I told her I would return when she gets off the phone. Pt then ends her conversation with her son. She begins yelling, "you have no right to call my son. I let her know her son is her emergency contact and I was told I needed to check with him today if he was transporting or if she needed a wc van. At this point she called me and "evil woman and an abomination". At this point I asked her if she was declining the SNF or wanted to go home. She cont. to continue to call me multiple name at which point I told her I was leaving and I would not tolerate her verbal abuse. At this time she let me know she was going home with her son. I went and spoke with PT and they stated she was unable to do stairs and it was not the best plan. I let them know she is refusing SNF. The suggest she have HH. I will return later and ask if she is interested in HH.
[2025-04-04 09:26] VITALS: BP 117/68
[2025-04-04 09:27] VITALS: BP 117/68
[2025-04-04] MEDS ORDERED: OXYCODONE HCL5 M1 PO (09:59)
[2025-04-04] MEDS ORDERED: PROPRANOLOL HCL20 MG PO (09:59)
--- NOTE | 2025-04-04 11:55 | NUR ---
Returned to pts room and let her know PT is suggesting HH for her. She then states, "once again you jumped the gun, I already have someone coming in to help me." I let her know Home Health is PT/OT. She then declined this and states she will go through the state. I updated the charge nurse this pt is refusing HH and still cont. to go home with her family on dc.
[2025-04-04 13:30] VITALS: BP 123/71
== END 2025-04-04 13:41 | DRG 563 ==
LOC: ED 06:47 → MS 06:48
PROVIDERS: Family Medicine; Student in an Organized Health Care Education/Training Program; ADMIT Family Medicine; ATTEND Hospitalist
DX: S52.135A Nondisplaced fracture of neck of left radius, initial encounter for closed fracture (principal); W01.0XXA Fall on same level from slipping, tripping and stumbling without subsequent striking against object, initial encounter; E05.90 Thyrotoxicosis, unspecified without thyrotoxic crisis or storm; I50.9 Heart failure, unspecified; R29.6 Repeated falls; I48.91 Unspecified atrial fibrillation; J44.9 Chronic obstructive pulmonary disease, unspecified; E11.9 Type 2 diabetes mellitus without complications; Z66 Do not resuscitate; K59.03 Drug induced constipation; T39.95XA Adverse effect of unspecified nonopioid analgesic, antipyretic and antirheumatic, initial encounter; Z88.0 Allergy status to penicillin; Z88.2 Allergy status to sulfonamides; Z88.7 Allergy status to serum and vaccine; Z88.5 Allergy status to narcotic agent; Z88.1 Allergy status to other antibiotic agents; Z86.711 Personal history of pulmonary embolism; I25.2 Old myocardial infarction; Z85.72 Personal history of non-Hodgkin lymphomas; Z87.891 Personal history of nicotine dependence; Z90.81 Acquired absence of spleen; Z79.51 Long term (current) use of inhaled steroids; Z79.82 Long term (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; Z79.84 Long term (current) use of oral hypoglycemic drugs; Z79.1 Long term (current) use of non-steroidal anti-inflammatories (NSAID); Z79.83 Long term (current) use of bisphosphonates; Z95.5 Presence of coronary angioplasty implant and graft
CPT/HCPCS: 29105; 36415; 51701; 73060; 73080; 74177; 80048; 80053; 81003; 83735; 84100; 84439; 84443; 84480; 84481; 84484; 85025; 93005; 93010; 94640; 94667; 94668; 94760; 94762; 94799; 96374; 96375; 96376; 97162; 97165; 97530; 97535; 99284-25; A9270; G0378; J0780; J1815; J2060; J2270; J2405; J7605; Q9967